=== PATIENT | female | born 1960 | race Two or more races ===

== ENCOUNTER → 2020-04-28 11:42 | Outpatient (BNVA) | payer MEDICAID, SELFPAY | PROVIDERS: PCP Family Medicine; Referring Provider Family Medicine; Visit Provider Internal Medicine Endocrinology, Diabetes & Metabolism | DX: E11.65 Type 2 diabetes mellitus with hyperglycemia (principal); E11.42 Type 2 diabetes mellitus with diabetic polyneuropathy; E11.319 Type 2 diabetes mellitus with unspecified diabetic retinopathy without macular edema; K91.2 Postsurgical malabsorption, not elsewhere classified; E78.5 Hyperlipidemia, unspecified; I10 Essential (primary) hypertension; E03.9 Hypothyroidism, unspecified; Z79.84 Long term (current) use of oral hypoglycemic drugs | CPT/HCPCS: 99214 ==

== ENCOUNTER 2020-05-18 12:32 | Outpatient (REF) | payer MEDICAID, SELFPAY ==
--- NOTE | 2020-05-18 12:35 | MR_ITS ---
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 COMPARISON: Lumbar spine radiograph 09/03/2018. TECHNIQUE: MRI of the lumbar spine was obtained using routine sequences without contrast. FINDINGS: The lumbar vertebral bodies maintain normal heights. There is minimal anterolisthesis of L4 on L5. Edema is seen about the left-sided L4-L5 facets reflecting arthropathy. Edema is seen within the interspinous ligament of L3-L4 which may be on the basis of bursitis. The disc heights appear preserved. The distal spinal cord appears normal. The conus medullaris terminates normally at the T12-L1 level. There is congenital narrowing of the spinal canal related to short pedicles. The imaged portions of the intra-abdominal and intrapelvic contents are within normal limits. The abdominal aorta demonstrates diminutive caliber but the flow void is maintained. SPINAL LEVELS: L1-L2: No posterior disc abnormality or spinal canal stenosis. Moderate facet arthropathy. No neural foraminal stenosis. L2-L3: Disc bulging with ligamentum flavum infolding moderate facet arthropathy. Mild spinal canal stenosis. L3-L4: Disc bulging with ligamentum flavum infolding and mild facet arthropathy. Moderate spinal canal stenosis. Mild bilateral neural foraminal stenosis with bulging disc abutting both exiting L3 nerve roots. L4-L5: Disc bulging, ligamentum flavum infolding, moderate facet arthropathy, and bilateral facet joint effusions. Moderate to severe spinal canal stenosis. Mild right and mild to moderate left neural foraminal stenosis with mild mass effect on the exiting left L4 nerve root. L5-S1: No posterior disc abnormality. Moderate facet arthropathy. No spinal canal or neural foraminal stenosis. MR/MR lumbar spine wo con IMPRESSION: Congenitally narrowed spinal canal with superimposed multifactorial degenerative changes result in moderate to severe spinal canal stenosis at the L4-L5 level and mild mass effect on the exiting left L4 nerve root. At L3-L4 there is mild bilateral neural foraminal stenosis with abutment of both exiting L3 nerve roots.
== END 2020-05-18 12:33 | disposition home or self-care (01) ==
LOC: HO.MRI 12:32
PROVIDERS: PCP Family Medicine; Visit Provider Family Medicine
DX: M21.372 Foot drop, left foot (principal)
CPT/HCPCS: 72148

== ENCOUNTER 2020-05-20 10:55 | Day surgery (SDC) | payer MEDICAID, SELFPAY ==
--- NOTE | 2020-05-20 08:17 | P.CONAN_ITS ---
Documented by User: Princess Graf 05/20/20 08:31 HPI - Anesthesia Eval Consult details Narrative: 59yo F for Colonoscopy Cardiology cleared at low risk after recent negative stress testing [facility] Past Medical History Medical History Asthma Diabetes type 2, uncontrolled Diabetic polyneuropathy associated with type 2 diabetes mellitus Diabetic retinopathy associated with type 2 diabetes mellitus Dyslipidemia Fatty liver disease, nonalcoholic GERD (gastroesophageal reflux disease) History of sleep apnea History of umbilical hernia Hypertension Hypoglycemia after GI (gastrointestinal) surgery Postural hypotension Primary biliary cholangitis Sjogrens syndrome Subclinical hypothyroidism Family History Family History Father [place] (myocardial infarction) Diabetes mellitus Mother Diabetes mellitus CVA (cerebral vascular accident) Maternal Grandmother Stomach cancer Sister Hemorrhagic cerebrovascular accident (CVA) Surgical History Surgical History History of carpal tunnel release History of esophagogastroduodenoscopy (EGD) History of laparoscopic appendectomy History of partial hysterectomy Hx of section Hx of colonoscopy Hx of gastric bypass Hx of tonsillectomy Social History Social History Smoking Status: Never smoker Use of substances other than those prescribed or required for medical reasons: No Advance Directives: No Recently lost weight without trying: No Meds Allergies Allergy/AdvReac Type Severity Reaction Status Date / Time Sulfa (Sulfonamide AdvReac Mild Stomach Verified 05/20/20 11:12 Antibiotics) Upset [SULFA (SULFONAMIDE ANTIBIOTICS)] Latex, Natural Rubber AdvReac Rash Verified 05/20/20 11:13 Morphine Sulfate AdvReac Unknown Abdominal Uncoded 05/20/20 11:12 Pain Home Medications Medication Instructions Recorded Confirmed Type albuterol sulfate 90 mcg/actuation 1 inh INHALATION QID 04/28/20 04/28/20 History aerosol inhaler blood sugar diagnostic #10 ea 04/28/20 04/28/20 History fludrocortisone 0.1 mg tablet 0.05 mg PO DAILY 04/28/20 04/28/20 History gabapentin 300 mg capsule 300 mg PO TID 04/28/20 04/28/20 History lancets 28 gauge #100 ea 04/28/20 04/28/20 History midodrine 2.5 mg tablet 2.5 mg PO BID 04/28/20 04/28/20 History risperidone 1 mg tablet 1 mg PO BEDTIME 04/28/20 04/28/20 History sertraline 100 mg tablet 200 mg PO DAILY tab 04/28/20 04/28/20 History Exam Exam Date and Time: May 20, 2020 0817 Pertinent Lab Results Pertinent Lab Results: Laboratory Tests 03/02/20 04/07/20 10:40 11:10 WBC 4.9 Hgb 10.7 L Hct 34.9 L Plt Count 235 Sodium 143 Potassium 3.9 Chloride 107 BUN 8 L Creatinine 0.77 Narrative Narrative: EKG 03/10/2020: NSR @ 64, ?[facility] Pharm Stress 03/23/20: No EKG evidence of ischemia, Nml myocardial perfusion imaging is normal, LV function is normal at rest and after regadenoson, nml wall motion and thickening, Assessment and Plan Assessment Anesthesia Assessment: Chart Reviewed Documented by User: Sarah Ribeiro 05/20/20 11:41 [facility] Past Medical History Medical History Asthma Diabetes type 2, uncontrolled Diabetic polyneuropathy associated with type 2 diabetes mellitus Diabetic retinopathy associated with type 2 diabetes mellitus Dyslipidemia Fatty liver disease, nonalcoholic GERD (gastroesophageal reflux disease) History of sleep apnea History of umbilical hernia Hypertension Hypoglycemia after GI (gastrointestinal) surgery Postural hypotension Primary biliary cholangitis Sjogrens syndrome Subclinical hypothyroidism Family History Family History Father [place] (myocardial infarction) Diabetes mellitus Mother Diabetes mellitus CVA (cerebral vascular accident) Maternal Grandmother Stomach cancer Sister Hemorrhagic cerebrovascular accident (CVA) Surgical History Surgical History History of carpal tunnel release History of esophagogastroduodenoscopy (EGD) History of laparoscopic appendectomy History of partial hysterectomy Hx of section Hx of colonoscopy Hx of gastric bypass Hx of tonsillectomy Social History Social History Smoking Status: Never smoker Use of substances other than those prescribed or required for medical reasons: No Advance Directives: No Recently lost weight without trying: No Meds Allergies Allergy/AdvReac Type Severity Reaction Status Date / Time Sulfa (Sulfonamide AdvReac Mild Stomach Verified 05/20/20 11:12 Antibiotics) Upset [SULFA (SULFONAMIDE ANTIBIOTICS)] Latex, Natural Rubber AdvReac Rash Verified 05/20/20 11:13 Morphine Sulfate AdvReac Unknown Abdominal Uncoded 05/20/20 11:12 Pain Home Medications Medication Instructions Recorded Confirmed Type albuterol sulfate 90 mcg/actuation 1 inh INHALATION QID 04/28/20 04/28/20 History aerosol inhaler blood sugar diagnostic #10 ea 04/28/20 04/28/20 History fludrocortisone 0.1 mg tablet 0.05 mg PO DAILY 04/28/20 04/28/20 History gabapentin 300 mg capsule 300 mg PO TID 04/28/20 04/28/20 History lancets 28 gauge #100 ea 04/28/20 04/28/20 History midodrine 2.5 mg tablet 2.5 mg PO BID 04/28/20 04/28/20 History risperidone 1 mg tablet 1 mg PO BEDTIME 04/28/20 04/28/20 History sertraline 100 mg tablet 200 mg PO DAILY tab 04/28/20 04/28/20 History Exam Airway Loose/Missing/Broken Teeth: Yes (6-12, 24, 25) Assessment and Plan Assessment Anesthesia Assessment: Anesthesia Plan Discussed and Chart Reviewed Final Anesthetic Review NPO: Yes ASA Class: III Final Preanesthetic Review: No Changes in Pt Med Stat, Meds/Allgs Chart Reviewed, Consent Obtained/Reviewed and Anes Risks/Benef Reviewed Patient Risk: Intermediate Procedure Risk: Low Assessment/Block/Sedation in SS: Assess/Block/Sedation-SS Anesthetic Plan Anesthetic Plan: MAC: Disposition: Standard PACU
[2020-05-20 11:15] VITALS: BP 171/70; PULSE 63; RESP 16; TEMP 36.2; O2SAT 98; BMI 23.6
--- NOTE | 2020-05-20 11:25 | PC.NURSE ---
lungs clear and dim throughout. no s/sx of resp distress.
[2020-05-20] MEDS: Lactated Ringers 1,000 ML 100 ML IVCONT (11:35)
[2020-05-20 11:39] LABS: Glucose, Whole Blood 93 mg/dL (60-115)
--- NOTE | 2020-05-20 12:05 | P.HPSUR_ITS ---
Pre-Procedural Eval Section B Chief Complaint: screening Relevant Family History (Specify if Yes): No Present Medications: see Short Stay Collaborative assessment Medical History: Significant History (PBC, DM, asthma) History of Previous Operations: Relevant previous surgery/procedure and date(s) (gastric bypass) Allergies: Allergies Allergy/AdvReac Type Severity Reaction Status Date / Time Sulfa (Sulfonamide AdvReac Mild Stomach Verified 05/20/20 11:12 Antibiotics) Upset [SULFA (SULFONAMIDE ANTIBIOTICS)] Latex, Natural Rubber AdvReac Rash Verified 05/20/20 11:13 Morphine Sulfate AdvReac Unknown Abdominal Uncoded 05/20/20 11:12 Pain Review of Systems Sugical H&P ROS: Negative: Constitution, Cardiovascular, Respiratory, Neurological, Psychiatric, Hem-Onc, Allergic/Immunologic, Gastrointestinal, Genitourinary, Musculoskeletal, Integumentary, Endocrine and Eyes/Ears/Nose/Th roat Exam Surgical H&P Exam: Normal: HEENT, Normal: Heart, Normal: Lungs, Normal: Extremities, Normal: Abdomen, Normal: Skin and Normal: Neurological Plan Diagnosis/Plan: Unchanged Patient has been examined and remains a candidate for the planned procedure
--- NOTE | 2020-05-20 12:47 | PM.OP ---
Brief Operative Note Date of procedure: 05/20/20 Pre-op diagnosis: colon screen Post-op diagnosis: same Procedure: see op note Surgeon: Luis Lucas MD Anesthesia: MAC Estimated blood loss (mL): 0 Condition: stable Disposition: PACU
--- NOTE | 2020-05-20 12:48 | W.PM.OPN ---
Operative Note Operative Note Narrative: Operative Information Procedure Description: Colonoscopy COLONOSCOPY Instrument: Olympus variable stiffness pediatric scope 190L Colonoscopy Monitoring: Vital signs and clinical assessment, continuous EKG monitoring, Pulse oximetry, Carbon Dioxide monitoring and blood pressure monitoring were done throughout the procedure. Colon withdrawal time was 20 minutes. Procedure: The patient was placed in the left lateral decubitis position and pre-procedure medications were administered. After a digital rectal examination of the ano-rectum, the video colonoscope was inserted into the rectum and advanced through the colon to the cecum/TI. The colonoscope was slowly withdrawn in a retrograde panoramic fashion and the colon mucosa was carefully examined including a retroflexed view of the rectum. Findings and interventions are described below. Procedure Difficulty:easy Findings: Terminal Ileum-normal Cecum: 8-9 mm sessile polyp removed with cold snare Ascending Colon: x 3 sessile polyps measuring 9-10 mm each removed with cold snare Transverse Colon -normal Descending Colon:normal Sigmoid Colon: x 2 sessile polyps 10 mm each removed with cold snare Rectum: Retroflexion with small internal hemorrhoids, grade I Anorectum - normal Colon preparation: [place] Bowel Preparation Scale Right colon; 1 Transverse colon: 2 Left colon; 1 (0 = Unprepared colon segment with mucosa not seen due to solid stool that cannot be cleared. 1 = Portion of mucosa of the colon segment seen, but other areas of the colon segment not well seen due to staining, residual stool and/or opaque liquid. 2 = Minor amount of residual staining, small fragments of stool and/or opaque liquid, but mucosa of colon segment seen well. 3 = Entire mucosa of colon segment seen well with no residual staining, small fragments of stool or opaque liquid) Impression and Post Procedure Diagnosis: polyps internal hemorrhoids Plan: High fiber diet leaflet Avoid straining at stool, epsom salts and sitz bath prn, anusol supps or cream prn Repeat Colonoscopy in 8-12 months due to prep or earlier if clinically indicated Above findings were reviewed with the patient and relevant handouts were provided if indicated.
[2020-05-20 12:50] VITALS: BP 121/61; PULSE 73; RESP 16; TEMP 36.2; O2SAT 98
[2020-05-20 13:05] VITALS: BP 139/74; PULSE 77; RESP 18; TEMP 36.2; O2SAT 99
--- NOTE | 2020-05-20 13:26 | HO.POSTANES ---
Post Anesthesia Evaluation Post Anesthesia Evaluation Vital Signs: Vital Signs Temp Pulse Resp BP Pulse Ox 05/20/20 13:05 97.2 F 77 18 139/74 99 05/20/20 12:50 97.2 F 73 16 121/61 98 05/20/20 11:15 97.2 F 63 16 171/70 H 98 Anesthesia: General (tiva) Mental Status: Awake Pain Control: Satisfactory Nausea/Vomiting: None Hydration: Adequate Anesthesia-Related Issues: No Anes. Related Issues
== END 2020-05-20 13:35 | disposition home or self-care (01) ==
PROVIDERS: PCP Family Medicine; Visit Provider Internal Medicine Gastroenterology
PROC: 0DJD8ZZ Inspection of Lower Intestinal Tract, Via Natural or Artificial Opening Endoscopic (ICD-10-PCS; CPT 45378; principal; 2020-05-20 12:40)
DX: Z12.11 Encounter for screening for malignant neoplasm of colon (principal); D12.2 Benign neoplasm of ascending colon; D12.5 Benign neoplasm of sigmoid colon; K63.5 Polyp of colon; K64.0 First degree hemorrhoids; E11.319 Type 2 diabetes mellitus with unspecified diabetic retinopathy without macular edema; E11.42 Type 2 diabetes mellitus with diabetic polyneuropathy; K74.3 Primary biliary cirrhosis; K76.0 Fatty (change of) liver, not elsewhere classified; K21.9 Gastro-esophageal reflux disease without esophagitis; I10 Essential (primary) hypertension; E78.5 Hyperlipidemia, unspecified; J45.909 Unspecified asthma, uncomplicated; M35.00 Sjogren syndrome, unspecified; Z79.899 Other long term (current) drug therapy; Z98.84 Bariatric surgery status; Z88.2 Allergy status to sulfonamides; Z91.040 Latex allergy status; Z88.8 Allergy status to other drugs, medicaments and biological substances
CPT/HCPCS: 45385; 82947; 88305; J0171

== ENCOUNTER → 2020-06-15 08:37 | Outpatient (BNVA) | payer MEDICAID, SELFPAY | PROVIDERS: PCP Family Medicine; Referring Provider Family Medicine; Visit Provider Internal Medicine Gastroenterology | DX: Z76.89 Persons encountering health services in other specified circumstances (principal) ==

== ENCOUNTER 2020-06-17 11:42 | Outpatient (REF) | payer MEDICAID, SELFPAY ==
[2020-06-17 13:37] LABS: MANUAL DIFF FLAG NO
[2020-06-17 13:54] LABS: Prothrombin Time 12.1 SEC (10.8-13.0)
[2020-06-17 13:58] LABS: Basophils Percent Auto 0.8 % (0-2); Eosinophils Absolute Auto 0.2 X10*3/uL (0.0-0.4); Hematocrit 41.5 % (37-47); Hemoglobin 12.3 g/dl (12.0-16.0); Imm Gran Abs Auto 0.01 X10*3/uL (0.00-0.03); Imm Gran Pct Auto 0.2 % (0.0-0.4); Lymphocytes Absolute Auto 1.8 X10*3/uL (1.2-4.9); Lymphocytes Percent Auto 36.8 % (20-40); Mean Corpuscular HGB Conc 29.6 g/dl (31.0-35.0); Mean Corpuscular Hemoglobin 23.7 pg (27.0-33.0); Mean Corpuscular Volume 79.8 fL (80-98); Monocytes Absolute Auto 0.4 X10*3/uL (0.1-1.2); Monocytes Percent Auto 8.5 % (2-11); Neutrophils Absolute Auto 2.5 X10*3/uL (2.0-8.3); Neutrophils Percent Auto 49.7 % (45-73); Platelet Count 246 X10*3/uL (160-400); Red Cell Distribution Width 16.8 % (11.0-16.0)
[2020-06-17 14:53] LABS: Alanine Aminotransferase 26 U/L (0-31); Albumin Level 3.8 g/dL (3.5-5.0); Alkaline Phosphatase 206 U/L (39-117); Anion Gap 13 (12-20); Aspartate Amino Transferase 25 U/L (5-31); Bilirubin Total < 0.2 mg/dL (0.0-1.0); Blood Urea Nitrogen 14 mg/dL (9-16); Calcium 8.3 mg/dL (8.4-10.2); Carbon Dioxide 30 mmol/L (22-29); Chloride 100 mmol/L (96-108); Estimated Glomerular Filt Rate > 60; Glucose Random 155 mg/dL (60-115); Potassium 3.4 mmol/l (3.3-5.1); Sodium 140 mmol/L (135-145); Total Protein 7.2 g/dL (6.5-8.0)
[2020-06-18 17:57] LABS: Immunoglobulin G 1438 mg/dL (600-1540)
[2020-06-19 08:44] LABS: HBS Num1 0.91 mIU/mL (0-7.99); Hepatitis A Antibody IgM 0.43 Index (0-0.79); ~HepC Num1 0.08 S/CO (0.00-0.79); ~Hepatitis A Antibody IgM Nonreactive (Nonreactive); ~Hepatitis B Surface Antibody NONREACTIVE (Nonreactive); ~Hepatitis C Antibody Nonreactive (Nonreactive)
[2020-06-19 09:28] LABS: HBc Num1 0.09 S/CO (0.00-0.79); HBsAGNum1 0.43 S/CO (0.00-0.99); Hepatitis B Core Antibody Nonreactive (Nonreactive); Hepatitis B Surface Antigen Negative (Negative)
== END 2020-06-17 11:43 | disposition home or self-care (01) ==
LOC: HO.10HDL 11:42
PROVIDERS: Visit Provider Internal Medicine Gastroenterology
DX: D12.6 Benign neoplasm of colon, unspecified (principal); K74.3 Primary biliary cirrhosis; K76.0 Fatty (change of) liver, not elsewhere classified
CPT/HCPCS: 36415; 80053; 82784; 85025; 85610; 86704; 86706; 86709; 86803; 87340

== ENCOUNTER 2020-07-27 09:08 | Outpatient (REF) | payer MEDICAID, SELFPAY ==
--- NOTE | 2020-07-27 09:13 | US_ITS ---
EXAMINATION: US ABDOMEN LIMITED CLINICAL INFORMATION: Benign neoplasm of colon, unspecified. COMPARISON: MRI abdomen without and with contrast dated 11/08/2019. X-ray abdomen dated 10/04/2018. Ultrasound abdomen complete dated 08/28/2018 and 02/15/2018. CT abdomen with intravenous contrast dated 02/22/2016. X-ray abdomen dated 07/25/2007. TECHNIQUE: Real-time imaging of the right upper quadrant abdominal viscera. FINDINGS: PANCREAS: Most of the pancreas is obscured by overlying gas. LIVER: The liver is normal size, contour with diffuse increased echogenicity. There is a hyperechoic lesion in the left lobe anterior segment measuring 1.4 x 0.8 x 0.9 cm, likely hemangioma. This was seen on the previous MRI abdomen and measured 8 mm. No additional lesions seen. There is no intrahepatic biliary duct dilatation seen. GALLBLADDER: Surgically absent. COMMON BILE DUCT: Normal in caliber measuring 0.5 cm in diameter. RIGHT KIDNEY: Normal. No hydronephrosis. No renal calculi or focal parenchymal lesions. The kidney measures 9.8 cm in maximum dimension. FREE FLUID: None. US/US abdomen limited IMPRESSION: Likely small hemangioma left hepatic lobe. This was seen on the previous MRI abdomen. Diffuse hepatic steatosis. Cholecystectomy changes. Right kidney and CBD are unremarkable.
== END 2020-07-27 09:09 | disposition home or self-care (01) ==
LOC: HO.US 09:08
PROVIDERS: Visit Provider Internal Medicine Gastroenterology
DX: D12.6 Benign neoplasm of colon, unspecified (principal); K74.3 Primary biliary cirrhosis; K76.0 Fatty (change of) liver, not elsewhere classified
CPT/HCPCS: 76705

== ENCOUNTER 2020-08-03 12:44 | Emergency (ER) | payer MEDICAID, SELFPAY ==
[2020-08-03 12:53] VITALS: BP 178/79; PULSE 67; RESP 17; TEMP 36.6; O2SAT 98; BMI 22.4
--- NOTE | 2020-08-03 13:55 | XR_ITS ---
EXAMINATION: XR CHEST CLINICAL INFORMATION: Generalized weakness and labile blood pressure COMPARISON: Previous chest x-ray most recent February 2020 TECHNIQUE: 2 views of the chest were obtained. FINDINGS: The cardiac and mediastinal contours are normal. The lungs are clear. There is no pleural effusion or pneumothorax. There are mild degenerative changes of the spine. XR/XR chest 2V IMPRESSION: No evidence for acute disease in the chest.
--- NOTE | 2020-08-03 14:28 | ED.GENADULT ---
HPI - General Adult General Chief complaint: General Medical Stated complaint: high blood pressure Time Seen by Provider: 08/03/20 13:52 Source: patient Mode of arrival: ambulatory Limitations: language barrier History of Present Illness HPI narrative: Patient history of orthostatic hypotension on fludrocortisone and midodrine noticed her blood pressure systolic in 200 range for last 1 week patient feel weak slightly. On arrival patient's blood pressure was 200/95 for lying down and on standing dropped to 141/68 patient complaining of mild dizziness on standing slight headache patient denies any chest pain no shortness of breath patient also been vomiting after she eats something for last couple of weeks had a gastric bypass surgery last year denies any abdominal pain no diarrhea Onset (ago): week(s) (1) Related Data Home Medications Medication Instructions Recorded Confirmed albuterol sulfate 90 mcg/actuation 1 inh INHALATION QID 04/28/20 04/28/20 aerosol inhaler blood sugar diagnostic #10 ea 04/28/20 04/28/20 fludrocortisone 0.1 mg tablet 0.05 mg PO DAILY 04/28/20 04/28/20 gabapentin 300 mg capsule 300 mg PO TID 04/28/20 04/28/20 lancets 28 gauge #100 ea 04/28/20 04/28/20 midodrine 2.5 mg tablet 2.5 mg PO BID 04/28/20 04/28/20 risperidone 1 mg tablet 1 mg PO BEDTIME 04/28/20 04/28/20 sertraline 100 mg tablet 200 mg PO DAILY tab 04/28/20 04/28/20 Previous Rx's Medication Instructions Recorded acarbose 100 mg tablet 100 mg PO TID 30 Days #90 tab 04/28/20 cholecalciferol (vitamin D3) 50 50 mcg PO DAILY 30 Days #30 cap 04/28/20 mcg (2,000 unit) capsule metformin 500 mg tablet 500 mg PO DAILY 30 Days #30 tab 04/28/20 ursodiol 250 mg tablet 250 mg PO TID #90 tab 04/29/20 Allergies Allergy/AdvReac Type Severity Reaction Status Date / Time Sulfa (Sulfonamide AdvReac Mild Stomach Verified 05/20/20 11:12 Antibiotics) Upset [SULFA (SULFONAMIDE ANTIBIOTICS)] Latex, Natural Rubber AdvReac Rash Verified 05/20/20 11:13 Morphine Sulfate AdvReac Unknown Abdominal Uncoded 05/20/20 11:12 Pain Review of Systems Review of Systems: Constitutional : No Weight loss, No Fever, No Chills ENT/Mouth : No sore throat, No Rhinorrhea Eyes: No Eye Pain, No Swelling Cardiovascular : No Chest Pain, no palpitations Respiratory : No Cough, No Sputum, no shortness of breath Gastrointestinal : + Nausea, ++ Vomiting, No Diarrhea, No abdominal Pain, no black stools Genitourinary : No Dysuria, No Urinary Frequency Musculoskeletal : No joint pain, No Myalgias, No Joint Swelling Skin : No Skin Lesions, No rash Neuro : No Weakness, No Numbness, No Dizziness, No Headache Psych : No Anxiety/Panic, No Depression Heme/Lymph: No Bruising, No Lymphadenopathy Endocrine : No Polyuria, No Polydipsia All other systems reviewed and are negative [facility] Past Medical History Medical History (Updated 08/03/20 @ 12:57 by Pradip Tracey) Asthma Diabetes 1.5, managed as type 2 Diabetes type 2, uncontrolled Diabetic polyneuropathy associated with type 2 diabetes mellitus Diabetic retinopathy associated with type 2 diabetes mellitus Dyslipidemia Fatty liver disease, nonalcoholic GERD (gastroesophageal reflux disease) History of sleep apnea History of umbilical hernia HTN (hypertension) Hypertension Hypoglycemia after GI (gastrointestinal) surgery Postural hypotension Primary biliary cholangitis Sjogrens syndrome Subclinical hypothyroidism Surgical History History of carpal tunnel release History of esophagogastroduodenoscopy (EGD) History of laparoscopic appendectomy History of partial hysterectomy Hx of section Hx of colonoscopy Hx of gastric bypass Hx of tonsillectomy Family History Family History Father [place] (myocardial infarction) Diabetes mellitus Mother Diabetes mellitus CVA (cerebral vascular accident) Maternal Grandmother Stomach cancer Sister Hemorrhagic cerebrovascular accident (CVA) Social History Social History (Updated 06/15/20 @ 08:39 by Becka Arcos [employer]) Alcohol intake: never Smoking Status: Never smoker Use of substances other than those prescribed or required for medical reasons: No Advance Directives: No Advance Directives Information Provided: Yes Physical Exam Vital Signs: Vital Signs: Last Vital Signs Temp 98 F 08/03/20 12:53 Pulse 65 08/03/20 15:20 Resp 16 08/03/20 15:20 BP 141/68 H 08/03/20 15:20 Pulse Ox 98 08/03/20 12:53 Body Mass Index 22.4 Appearance: Alert. Oriented X3. No acute distress. Eyes: Pupils equal, round and reactive to light. ENT: Pharynx normal. Neck: Normal inspection. Neck supple. CVS: Normal heart rate and rhythm. Pulses normal. Respiratory: No respiratory distress. Breath sounds normal. Abdomen: Soft and nontender. Bowel sounds are present, no mass palpable, no CVA tenderness Skin: Skin warm and dry. Normal skin color. Normal skin turgor. Extremities: No lower extremity edema. Neuro: Oriented X 3. No motor deficit. No sensory deficit. Course Course Course Narrative: Patient with orthostatic hypertension on my drain with elevated blood pressure in supine position. Awaiting further chemistry plan to discharge patient home hold on midostaurin for now. Patient signed out to Dr. Majano for disposition Medical Decision Making MDM Narrative Medical decision making narrative: Patient with orthostatic hypertension on midodrin complaining of high blood pressure in the range of 200 systolic will advised patient to hold midodrin at this time drink plenty of fluids and follow-up with PCP awaiting for the labs Lab Data Result diagrams: 08/03/20 15:18 08/03/20 15:18 Labs: Lab Results 08/03/20 08/03/20 Range/Units 15:18 15:18 WBC 5.4 (4.8-10.8) X10*3/uL RBC 5.34 (4.20-5.50) X10*6/uL Hgb 13.1 (12.0-16.0) g/dl Hct 42.4 (37-47) % MCV 79.4 L (80-98) fL MCH 24.5 L (27.0-33.0) pg MCHC 30.9 L (31.0-35.0) g/dl RDW 17.1 H (11.0-16.0) % Plt Count 229 (160-400) X10*3/uL MPV Not Reportable Immature Gran % (Auto) 0.2 (0.0-0.4) % Neut % (Auto) 43.2 L (45-73) % Lymph % (Auto) 40.2 H (20-40) % Lipscomb % (Auto) 8.9 (2-11) % Eos % (Auto) 6.8 H (0-4) % Baso % (Auto) 0.7 (0-2) % Lymph # (Auto) 2.2 (1.2-4.9) X10*3/uL Lipscomb # (Auto) 0.5 (0.1-1.2) X10*3/uL Eos # (Auto) 0.4 (0.0-0.4) X10*3/uL Baso # (Auto) 0.0 (0.0-0.2) X10*3/uL Abs Immat Gran (auto) 0.01 (0.00-0.03) X10*3/uL Absolute Neuts (auto) 2.3 (2.0-8.3) X10*3/uL Absolute Nucleated RBC 0.000 (0.0-0.012) X10*3/uL Nucleated RBC % (auto) 0.0 (0.0-0.2) /100WBC Sodium Cancelled Potassium Cancelled Chloride Cancelled Carbon Dioxide Cancelled Anion Gap Cancelled BUN Cancelled Creatinine Cancelled Estim Creat Clear Calc Cancelled Estimated GFR Cancelled Random Glucose Cancelled Calcium Cancelled Discharge Plan Discharge Prescriptions: No Action ursodiol 250 mg tablet 250 mg PO TID Qty: 90 RF: 3 gabapentin 300 mg capsule 300 mg PO TID RF: 0 fludrocortisone 0.1 mg tablet 0.05 mg PO DAILY RF: 0 midodrine 2.5 mg tablet 2.5 mg PO BID RF: 0 sertraline 100 mg tablet 200 mg PO DAILY RF: 0 albuterol sulfate 90 mcg/actuation HFA aerosol inhaler 1 inh inhalation QID RF: 0 risperidone 1 mg tablet 1 mg PO BEDTIME RF: 0 (DME) FreeStyle Lite Strips Strip See Rx Instructions .ROUTE .MEDSUPPLY Qty: 10 RF: 0 (DME) lancets [FreeStyle Lancets] 28 gauge misc See Rx Instructions .ROUTE .MEDSUPPLY Qty: 100 RF: 0 acarbose 100 mg tablet 100 mg PO TID 30 Days Qty: 90 RF: 6 metformin 500 mg tablet 500 mg PO DAILY 30 Days Qty: 30 RF: 6 cholecalciferol (vitamin D3) 50 mcg (2,000 unit) capsule 50 mcg PO DAILY 30 Days Qty: 30 RF: 5
[2020-08-03 15:20] VITALS: BP 141/68; PULSE 65; RESP 16
[2020-08-03 15:21] LABS: MANUAL DIFF FLAG NO
[2020-08-03 15:25] LABS: Basophils Percent Auto 0.7 % (0-2); Eosinophils Absolute Auto 0.4 X10*3/uL (0.0-0.4); Eosinophils Percent Auto 6.8 % (0-4); Hematocrit 42.4 % (37-47); Hemoglobin 13.1 g/dl (12.0-16.0); Imm Gran Abs Auto 0.01 X10*3/uL (0.00-0.03); Imm Gran Pct Auto 0.2 % (0.0-0.4); Lymphocytes Absolute Auto 2.2 X10*3/uL (1.2-4.9); Lymphocytes Percent Auto 40.2 % (20-40); Mean Corpuscular HGB Conc 30.9 g/dl (31.0-35.0); Mean Corpuscular Hemoglobin 24.5 pg (27.0-33.0); Mean Corpuscular Volume 79.4 fL (80-98); Monocytes Absolute Auto 0.5 X10*3/uL (0.1-1.2); Monocytes Percent Auto 8.9 % (2-11); Neutrophils Absolute Auto 2.3 X10*3/uL (2.0-8.3); Neutrophils Percent Auto 43.2 % (45-73); Platelet Count 229 X10*3/uL (160-400); Red Blood Count 5.34 X10*6/uL (4.20-5.50); Red Cell Distribution Width 17.1 % (11.0-16.0); White Blood Count 5.4 X10*3/uL (4.8-10.8)
[2020-08-03 16:00] VITALS: BP 195/88; PULSE 64; RESP 17; TEMP 36.5; O2SAT 96
[2020-08-03 17:19] LABS: Alanine Aminotransferase 22 U/L (0-31); Alkaline Phosphatase 242 U/L (39-117); Anion Gap 12 (12-20); Aspartate Amino Transferase 26 U/L (5-31); Bilirubin Direct < 0.2 mg/dL (0.0-0.5); Bilirubin Total 0.3 mg/dL (0.0-1.0); Blood Urea Nitrogen 13 mg/dL (9-16); Calcium 9.1 mg/dL (8.4-10.2); Carbon Dioxide 36 mmol/L (22-29); Chloride 100 mmol/L (96-108); Creatinine Clr Calc Pharmacy 51.6; Estimated Glomerular Filt Rate > 60; Glucose Random 116 mg/dL (60-115); Magnesium 1.7 mg/dL (1.6-2.6); Potassium 4.1 mmol/l (3.3-5.1); Sodium 144 mmol/L (135-145); Total Protein 7.7 g/dL (6.5-8.0)
== END 2020-08-03 17:34 | disposition home or self-care (01) ==
PROVIDERS: Emergency Provider Internal Medicine; PCP Family Medicine
DX: I95.1 Orthostatic hypotension (principal); I10 Essential (primary) hypertension; E11.9 Type 2 diabetes mellitus without complications; K76.0 Fatty (change of) liver, not elsewhere classified
CPT/HCPCS: 36415; 71046; 80048; 80076; 83735; 85025; 99283; 99284

== ENCOUNTER → 2020-08-31 11:10 | Outpatient (BNVA) | payer MEDICAID, SELFPAY | PROVIDERS: PCP Family Medicine; Visit Provider Internal Medicine Endocrinology, Diabetes & Metabolism ==

== ENCOUNTER 2020-09-08 09:24 | Outpatient (REF) | payer MEDICAID, SELFPAY ==
[2020-09-08 10:31] LABS: Creatinine Urine 143.13 mg/dL; Microalbum/Creatinine Ratio Ur 20.9 ug/mg cr
[2020-09-08 10:35] LABS: Alanine Aminotransferase 20 U/L (0-31); Albumin Level 3.8 g/dL (3.5-5.0); Alkaline Phosphatase 207 U/L (39-117); Anion Gap 13 (12-20); Aspartate Amino Transferase 25 U/L (5-31); Bilirubin Total 0.3 mg/dL (0.0-1.0); Blood Urea Nitrogen 13 mg/dL (9-16); Calcium 8.7 mg/dL (8.4-10.2); Carbon Dioxide 29 mmol/L (22-29); Chloride 107 mmol/L (96-108); Cholesterol 188 mg/dL; Estimated Glomerular Filt Rate > 60; Glucose Fasting 102 mg/dL (60-99); HDL Cholesterol 57 mg/dL; LDL Cholesterol Calculated 111 mg/dl; Potassium 4.4 mmol/L (3.3-5.1); Sodium 145 mmol/L (135-145); Total Protein 7.1 g/dL (6.5-8.0); Triglycerides 103 mg/dL
[2020-09-08 10:36] LABS: Estimated Average Glucose 177 mg/dL; Hemoglobin A1c % 7.8 %
[2020-09-08 10:58] LABS: Free T4 (Free Thyroxine) 1.03 ng/dL (0.71-1.85)
[2020-09-08 12:18] LABS: Vitamin B12 755 pg/mL (200-900)
[2020-09-09 02:16] LABS: LDL Cholesterol Direct 114 mg/dL (<100)
[2020-09-17 02:07] LABS: Fructosamine 276 umol/L (205-285)
== END 2020-09-08 09:25 | disposition home or self-care (01) ==
LOC: HO.LAB 09:24
PROVIDERS: Absent Provider Internal Medicine Medical Oncology; PCP Family Medicine; Visit Provider Internal Medicine Endocrinology, Diabetes & Metabolism
DX: E11.65 Type 2 diabetes mellitus with hyperglycemia (principal)
CPT/HCPCS: 36415; 80053; 80061; 82043; 82607; 82985; 83036; 83721; 84439; 84443

== ENCOUNTER → 2020-10-09 10:08 | Outpatient (BNVA) | payer OTHER, SELFPAY | PROVIDERS: PCP Internal Medicine; Visit Provider Internal Medicine Gastroenterology ==

== ENCOUNTER 2020-11-02 14:53 | Outpatient (REF) | payer OTHER, SELFPAY ==
[2020-11-02 15:47] LABS: MANUAL DIFF FLAG NO
[2020-11-02 15:56] LABS: Basophils Absolute Auto 0.1 X10*3/uL (0.0-0.2); Basophils Percent Auto 1.3 % (0-2); Eosinophils Absolute Auto 0.5 X10*3/uL (0.0-0.4); Eosinophils Percent Auto 9.1 % (0-4); Hematocrit 36.6 % (37-47); Hemoglobin 11.1 g/dl (12.0-16.0); Imm Gran Abs Auto 0.02 X10*3/uL (0.00-0.03); Imm Gran Pct Auto 0.4 % (0.0-0.4); Lymphocytes Absolute Auto 1.7 X10*3/uL (1.2-4.9); Lymphocytes Percent Auto 31.3 % (20-40); Mean Corpuscular HGB Conc 30.3 g/dl (31.0-35.0); Mean Corpuscular Hemoglobin 24.5 pg (27.0-33.0); Mean Corpuscular Volume 80.8 fL (80-98); Mean Platelet Volume 12.5 fL (9.4-12.3); Monocytes Absolute Auto 0.6 X10*3/uL (0.1-1.2); Monocytes Percent Auto 11.1 % (2-11); Neutrophils Absolute Auto 2.6 X10*3/uL (2.0-8.3); Neutrophils Percent Auto 46.8 % (45-73); Platelet Count 298 X10*3/uL (160-400); Red Blood Count 4.53 X10*6/uL (4.20-5.50); Red Cell Distribution Width 17.5 % (11.0-16.0); White Blood Count 5.5 X10*3/uL (4.8-10.8)
[2020-11-02 16:04] LABS: INTERNATIONAL NORM RATIO 1.1 (0.9-1.1); Prothrombin Time 12.5 SEC (10.8-13.0)
[2020-11-02 16:18] LABS: Alanine Aminotransferase 30 U/L (0-31); Albumin Level 3.8 g/dL (3.5-5.0); Alkaline Phosphatase 315 U/L (39-117); Anion Gap 12 (12-20); Aspartate Amino Transferase 39 U/L (5-31); Bilirubin Total 0.2 mg/dL (0.0-1.0); Blood Urea Nitrogen 14 mg/dL (9-16); Calcium 9.3 mg/dL (8.4-10.2); Carbon Dioxide 30 mmol/L (22-29); Chloride 105 mmol/L (96-108); Cholesterol 209 mg/dL; Estimated Glomerular Filt Rate > 60; Glucose Fasting 111 mg/dL (60-99); HDL Cholesterol 60 mg/dL; LDL Cholesterol Calculated 111 mg/dl; Potassium 4.3 mmol/L (3.3-5.1); Sodium 143 mmol/L (135-145); Total Protein 7.4 g/dL (6.5-8.0); Triglycerides 194 mg/dL
[2020-11-02 16:40] LABS: Free T4 (Free Thyroxine) 1.02 ng/dL (0.71-1.85); Thyroid Stimulating Hormone 2.77 uIU/mL (0.32-4.0)
[2020-11-03 06:51] LABS: LDL Cholesterol Direct 119 mg/dL (<100)
== END 2020-11-02 14:54 | disposition home or self-care (01) ==
LOC: HO.LAB 14:53
PROVIDERS: Internal Medicine Endocrinology, Diabetes & Metabolism; Internal Medicine Gastroenterology; PCP Internal Medicine; Visit Provider Internal Medicine
DX: E11.65 Type 2 diabetes mellitus with hyperglycemia (principal); K74.3 Primary biliary cirrhosis; K76.0 Fatty (change of) liver, not elsewhere classified; R10.11 Right upper quadrant pain
CPT/HCPCS: 36415; 80053; 80061; 83721; 84439; 84443; 85025; 85610

== ENCOUNTER 2020-11-03 14:11 | Outpatient (REF) | payer OTHER, SELFPAY ==
[2020-11-03 14:33] LABS: Glucose Urine UA NEG (NEG); Leukocyte Esterase Urine NEG (NEG); Nitrite Urine NEG (NEG); Urine Blood NEG (NEG); Urine Ketones NEG (NEG); Urine Protein NEG (NEG-TRACE)
[2020-11-03 14:39] LABS: Appearance Urine CLEAR; Color Urine YELLOW
[2020-11-03 15:14] LABS: Creatinine Urine 30.23 mg/dL; Microalbum/Creatinine Ratio Ur 39.6 ug/mg cr
== END 2020-11-03 14:12 | disposition home or self-care (01) ==
LOC: HO.LNP 14:11
PROVIDERS: Referring Provider Internal Medicine Endocrinology, Diabetes & Metabolism; Visit Provider Internal Medicine
DX: R30.0 Dysuria (principal); E11.9 Type 2 diabetes mellitus without complications
CPT/HCPCS: 81003; 82043

== ENCOUNTER 2020-11-10 08:22 | Outpatient (REF) | payer OTHER, SELFPAY ==
--- NOTE | ~2020-11-10 | US_ITS ---
EXAMINATION: US ABDOMEN COMPLETE CLINICAL INFORMATION: Primary biliary cirrhosis. COMPARISON: Ultrasound abdomen limited dated 07/27/2020. MRI abdomen without and with contrast dated 11/08/2019 and 06/21/2019. X-ray abdomen dated 10/04/2018. Ultrasound abdomen complete dated 08/28/2018. CT abdomen with intravenous contrast dated 02/22/2016. X-ray abdomen dated 07/25/2007. TECHNIQUE: Real-time imaging of the abdominal viscera. FINDINGS: PANCREAS: The pancreas is obscured by overlying gas. ABDOMINAL AORTA: The mid and distal segments are normal in caliber. The proximal segment is not visualized. INFERIOR VENA CAVA: Visualized portions are normal. LIVER: The liver is small and heterogeneous. The liver contour is normal. There is a hypoechoic lesion in the left lobe measuring 0.9 x 1.0 x 0.9 cm. Previously it measured 1.4 x 0.8 x 0.9 cm. On previous MRI 06/21/2019 it was reported as a hemangioma. There is no intrahepatic biliary duct dilatation seen. GALLBLADDER: Surgically absent. COMMON BILE DUCT: Normal in caliber measuring 0.3 cm in diameter. RIGHT KIDNEY: Normal. No hydronephrosis. No renal calculi or focal parenchymal lesions. The kidney measures 9.5 cm in maximum dimension. LEFT KIDNEY: There is an echogenic foci in the midpole cortex left kidney question small hemangioma versus microcalcification. No hydronephrosis. No renal calculi or focal parenchymal lesions. The kidney measures 9.3 cm in maximum dimension. SPLEEN: Normal. The spleen measures 7.6 cm in maximum dimension. FREE FLUID: None. US/US abdomen complete IMPRESSION: Heterogeneous small liver with likely left hepatic lobe 1 cm hemangioma. 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 The gallbladder has been surgically removed.
== END 2020-11-10 08:23 | disposition home or self-care (01) ==
LOC: HO.US 08:22
PROVIDERS: PCP Internal Medicine; Visit Provider Internal Medicine Gastroenterology
DX: K74.3 Primary biliary cirrhosis (principal); K76.0 Fatty (change of) liver, not elsewhere classified; R10.11 Right upper quadrant pain
CPT/HCPCS: 76700

== ENCOUNTER 2020-11-27 10:58 | Outpatient (REF) | payer OTHER, SELFPAY ==
[2020-11-27 13:09] LABS: MANUAL DIFF FLAG NO
[2020-11-27 13:16] LABS: Basophils Absolute Auto 0.1 X10*3/uL (0.0-0.2); Eosinophils Absolute Auto 0.4 X10*3/uL (0.0-0.4); Eosinophils Percent Auto 6.9 % (0-4); Hematocrit 37.1 % (37-47); Hemoglobin 11.2 g/dl (12.0-16.0); Imm Gran Abs Auto 0.02 X10*3/uL (0.00-0.03); Imm Gran Pct Auto 0.3 % (0.0-0.4); Immature Retic Fraction 12.1 % (3.0-15.9); Lymphocytes Absolute Auto 1.3 X10*3/uL (1.2-4.9); Mean Corpuscular HGB Conc 30.2 g/dl (31.0-35.0); Mean Corpuscular Hemoglobin 24.9 pg (27.0-33.0); Mean Corpuscular Volume 82.4 fL (80-98); Mean Platelet Volume 13.3 fL (9.4-12.3); Monocytes Absolute Auto 0.4 X10*3/uL (0.1-1.2); Monocytes Percent Auto 6.6 % (2-11); Neutrophils Absolute Auto 3.6 X10*3/uL (2.0-8.3); Neutrophils Percent Auto 62.2 % (45-73); Platelet Count 297 X10*3/uL (160-400); Red Cell Distribution Width 16.5 % (11.0-16.0); Retic HGB Equivalent 27.1 pg (30.0-35.0); Reticulocyte Percent 1.6 % (0.5-1.8); Reticulocytes Absolute 0.073 X10*6/uL (0.026-0.095); White Blood Count 5.8 X10*3/uL (4.8-10.8)
[2020-11-27 13:59] LABS: Erythrocyte Sedimentation Rate 64 MM/HR (0-20)
[2020-11-27 14:00] LABS: Alanine Aminotransferase 30 U/L (0-31); Albumin Level 3.9 g/dL (3.5-5.0); Alkaline Phosphatase 336 U/L (39-117); Anion Gap 12 (12-20); Aspartate Amino Transferase 33 U/L (5-31); Bilirubin Total 0.4 mg/dL (0.0-1.0); Blood Urea Nitrogen 10 mg/dL (9-16); Calcium 9.3 mg/dL (8.4-10.2); Carbon Dioxide 30 mmol/L (22-29); Chloride 104 mmol/L (96-108); Cholesterol 125 mg/dL; Estimated Glomerular Filt Rate > 60; Glucose Random 157 mg/dL (60-115); HDL Cholesterol 54 mg/dL; Iron 34 mcg/dL (30-160); LDL Cholesterol Calculated 54 mg/dl; Percent Iron Saturation 9 % (15-50); Potassium 4.3 mmol/L (3.3-5.1); Sodium 142 mmol/L (135-145); Total Iron Binding Capacity 394 mcg/dL (228-428); Total Protein 7.7 g/dL (6.5-8.0); Triglycerides 89 mg/dL; Unsaturated Iron Binding 360 ug/dL
[2020-11-27 14:01] LABS: Microalbum/Creatinine Ratio Ur 33.3 ug/mg cr
[2020-11-27 14:23] LABS: Ferritin 26 ng/mL (10-250); Free T4 (Free Thyroxine) 0.96 ng/dL (0.71-1.85); Thyroid Stimulating Hormone 2.45 uIU/mL (0.32-4.0); Vitamin D 25-OH Total 42.2 ng/mL (>30)
[2020-11-27 14:31] LABS: Folate 12.6 ng/mL (> or = 4.0); Vitamin B12 943 pg/mL (200-900)
[2020-11-28 07:22] LABS: Estimated Average Glucose 163 mg/dL; Hemoglobin A1c % 7.3 %
[2020-11-30 15:37] LABS: Zinc 54 mcg/dL (60-130)
[2020-12-01 16:11] LABS: Nicotinamide 35 ng/mL; Vit B3 - Nicotinic Acid <20 ng/mL
[2020-12-02 00:36] LABS: Alpha-Tocopherol 9.3 mg/L (5.7-19.9); Beta-Gamma Tocopherol <1.0 mg/L (<=4.3); Vitamin A 34 mcg/dL (38-98)
[2020-12-02 08:17] LABS: Vitamin B6 3.8 ng/mL (2.1-21.7)
[2020-12-02 12:23] LABS: Vitamin C 0.8 mg/dL (0.3-2.7)
[2020-12-02 17:12] LABS: Vitamin B5 (Pantothenic Acid) <40 ng/mL (<275)
[2020-12-03 21:51] LABS: Vitamin K1 84 pg/mL (130-1500)
== END 2020-11-27 10:59 | disposition home or self-care (01) ==
LOC: HO.LAB 10:58
PROVIDERS: Absent Provider Internal Medicine; PCP Internal Medicine; Referring Provider Internal Medicine; Visit Provider Internal Medicine Gastroenterology
DX: K74.3 Primary biliary cirrhosis (principal); D64.9 Anemia, unspecified; K76.0 Fatty (change of) liver, not elsewhere classified; I10 Essential (primary) hypertension; E11.65 Type 2 diabetes mellitus with hyperglycemia; E78.5 Hyperlipidemia, unspecified; E03.9 Hypothyroidism, unspecified; E78.00 Pure hypercholesterolemia, unspecified; D12.6 Benign neoplasm of colon, unspecified
CPT/HCPCS: 36415; 80053; 80061; 82043; 82180; 82306; 82607; 82728; 82746; 83036; 83540; 84207; 84439; 84443; 84446; 84590; 84591; 84597; 84630; 85025; 85045; 85652; 90471; 99212

== ENCOUNTER 2020-12-24 09:33 | Outpatient (REF) | payer OTHER, SELFPAY ==
--- NOTE | ~2020-12-24 | US_ITS ---
EXAMINATION: US ABDOMEN LIMITED WITH LIVER ELASTOGRAPHY CLINICAL INFORMATION: Anemia. Cirrhosis. COMPARISON: None. TECHNIQUE: Real-time imaging of the abdominal viscera. Noninvasive ultrasound liver fibrosis assessment is performed using Eldon ElastPQ point quantification shear wave elastography (pSWE) with a C5-2 MHz transducer. Multiple elastography samples are obtained. FINDINGS: PANCREAS: Not visualized due to bowel gas. LIVER: Liver echotexture is slightly heterogeneous. The previously identified focal hypoechoic lesion in the left lobe of the liver is not well visualized. The liver is normal in size and contour. There is no biliary duct dilatation. The right lobe measures 15 cm in length. The left lobe measures 8 cm in length. Portal flow is normal. Hepatopedal. Shear wave liver elastography median stiffness is 1.4 m/s (reference: normal median stiffness is 1.3 m/s or less). IQR/median stiffness to assess sampling precision is 0.13 (reference: good quality data set is IQR/median stiffness of 0.15 or less). GALLBLADDER: Surgically removed COMMON BILE DUCT: Normal in caliber measuring 0.3 cm in diameter. RIGHT KIDNEY: Normal. No hydronephrosis. No renal calculi or focal parenchymal lesions. The kidney measures 10 cm in maximum dimension. FREE FLUID: None. US/US abdomen castillo w elastography IMPRESSION: 1. Impression: Slightly heterogeneous liver. Previously identified liver lesion seen by MRI is not appreciated by ultrasound. Post cholecystectomy. Nonvisualization of the pancreas. 2. Liver elastography: Adequate liver sampling. In the absence of other known clinical signs, rule out compensated advanced chronic liver disease. REFERENCE: Society of Radiologists in Ultrasound Liver Stiffness Thresholds (2020): LIVER STIFFNESS THRESHOLDS: *Liver Stiffness equal or less than 1.3 m/s: High probability of being normal. *Liver Stiffness less than 1.7 m/s: In the absence of other known clinical signs, rules out compensated advanced chronic liver disease. *Liver Stiffness 1.7-2.1 m/s: Suggestive of compensated advanced chronic liver disease but need further test for confirmation. *Liver Stiffness over 2.1 m/s: Rules in compensated advanced chronic liver disease. *Liver Stiffness over 2.4 m/s: Suggestive of clinically significant portal hypertension. QUALITY OF DATA SET: *IQR/Median value equal or less than 0.15 implies a quality data set. *IQR/Median value over 0.15 implies a poor quality data set. SIGNIFICANT CHANGE FROM PRIOR EXAM: Significant change if liver stiffness measurement is 10% or greater from prior exam. OTHER CONSIDERATIONS: The stage of liver fibrosis may be overestimated in the setting of acute hepatitis, liver inflammation, elevated liver function tests, hepatic vascular congestion, obstructive cholestasis, non-fasting state, and infiltrative diseases such as amyloidosis and lymphoma. In some patients with NAFLD, the liver stiffness thresholds for compensated advanced chronic liver disease may be lower. In causes other than viral hepatitis and NAFLD, liver stiffness thresholds are not well established.
== END 2020-12-24 09:34 | disposition home or self-care (01) ==
LOC: HO.US 09:33
PROVIDERS: PCP Internal Medicine; Visit Provider Internal Medicine Gastroenterology
DX: D64.9 Anemia, unspecified (principal); K74.3 Primary biliary cirrhosis
CPT/HCPCS: 76705; 76981

== ENCOUNTER 2020-12-31 09:46 | Day surgery (SDC) | payer OTHER, SELFPAY ==
[2020-12-23 20:28] VITALS: BMI 22.2
--- NOTE | 2020-12-30 08:59 | P.CONAN_ITS ---
Documented by User: Princess Graf 12/30/20 11:35 HPI - Anesthesia Eval Consult details Narrative: 60yo F for Upper Endoscopy and Colonoscopy s/p colonoscooy with TIVA 05/2020. Cleared by cardiology with negative stress test - last seen at routine cardiac visit 10/2020 - all stable except dizziness r/t known hx of vertigo PMFSH Active Problems Active Problems: All Active Problems (Updated 11/12/20 @ 14:44 by Ludy Alonso MD) Hx of gastric bypass (Acute) Obstructive sleep apnea (Acute) CVA (cerebral vascular accident) (Acute) Lumbar spinal stenosis (Acute) Type 2 diabetes mellitus with hyperglycemia (Acute) Coronary artery disease (Acute) Tubular adenoma of colon (Acute) Anemia (Acute) Primary biliary cholangitis (Acute) Fatty liver disease, nonalcoholic (Acute) Postural hypotension (Acute) Sjogrens syndrome (Acute) GERD (gastroesophageal reflux disease) (Acute) Asthma (Acute) Subclinical hypothyroidism (Acute) Hypertension (Acute) Dyslipidemia (Acute) Diabetic retinopathy associated with type 2 diabetes mellitus (Acute) Diabetic polyneuropathy associated with type 2 diabetes mellitus (Acute) Hypoglycemia after GI (gastrointestinal) surgery (Acute) Diabetes type 2, uncontrolled (Acute) Past Medical History Medical History (Updated 12/31/20 @ 11:41 by Yessy Wood) Asthma CVA (cerebral vascular accident) Diabetes type 2, uncontrolled Diabetic polyneuropathy associated with type 2 diabetes mellitus Diabetic retinopathy associated with type 2 diabetes mellitus Dyslipidemia Fatty liver disease, nonalcoholic GERD (gastroesophageal reflux disease) History of sleep apnea History of umbilical hernia HTN (hypertension) Hypertension Hypoglycemia after GI (gastrointestinal) surgery Postural hypotension Primary biliary cholangitis Sjogrens syndrome Subclinical hypothyroidism Family History Family History Father [place] (myocardial infarction) Diabetes mellitus Mother Diabetes mellitus CVA (cerebral vascular accident) Maternal Grandmother Stomach cancer Sister Hemorrhagic cerebrovascular accident (CVA) Surgical History Surgical History History of carpal tunnel release History of esophagogastroduodenoscopy (EGD) History of laparoscopic appendectomy History of partial hysterectomy Hx of section Hx of colonoscopy Hx of gastric bypass Hx of tonsillectomy Social History Social History Household Members: Spouse Alcohol intake: never Patient Tobacco Use Status: Never used Tobacco Use of substances other than those prescribed or required for medical reasons: No Are you DNR?: No Advance Directives: Yes Advance Directives Information Provided: Yes Advance Directives on File: Yes Advance Directives Date on File: 08/11/18 Recently lost weight without trying: No Meds Allergies Allergy/AdvReac Type Severity Reaction Status Date / Time Sulfa (Sulfonamide AdvReac Mild Stomach Verified 11/27/20 11:13 Antibiotics) Upset [SULFA (SULFONAMIDE ANTIBIOTICS)] Latex, Natural Rubber AdvReac Rash Verified 11/27/20 11:13 Morphine Sulfate AdvReac Unknown Abdominal Uncoded 05/20/20 11:12 Pain Home Medications Medication Instructions Recorded Confirmed Last Taken Type albuterol sulfate 90 mcg/actuation 1 inh INHALATION QID 04/28/20 12/23/20 Unknown History aerosol inhaler blood sugar diagnostic #10 ea 04/28/20 12/23/20 Unknown History fludrocortisone 0.1 mg tablet 0.05 mg PO DAILY 04/28/20 12/23/20 Unknown History gabapentin 300 mg capsule 300 mg PO TID 04/28/20 12/23/20 12/31/20 08:00 History lancets 28 gauge #100 ea 04/28/20 12/23/20 Unknown History midodrine 2.5 mg tablet 2.5 mg PO BID 04/28/20 12/23/20 12/31/20 08:00 History risperidone 1 mg tablet 1 mg PO BEDTIME 04/28/20 12/23/20 Unknown History sertraline 100 mg tablet 200 mg PO DAILY tab 04/28/20 12/23/20 12/31/20 08:00 History Exam Exam Date and Time: December 30, 2020 0859 Height,Weight and Vital Signs: Height 4 ft 11 in Weight 49.895 kg Pertinent Lab Results Pertinent Lab Results: Laboratory Tests 11/27/20 11/27/20 12:42 12:42 WBC 5.8 Hgb 11.2 L Hct 37.1 Plt Count 297 Sodium 142 Potassium 4.3 Chloride 104 Carbon Dioxide 30 H BUN 10 Creatinine 0.79 Narrative Narrative: EKG 03/10/2020: NSR @ 64, ?[facility] Pharm Stress 03/23/20: No EKG evidence of ischemia, Nml myocardial perfusion imaging is normal, LV function is normal at rest and after regadenoson, nml wall motion and thickening, Assessment and Plan Assessment Anesthesia Assessment: Chart Reviewed Documented by User: Yessy Wood 12/31/20 11:51 HPI - Anesthesia Eval Consult details Narrative: Patient only having EGD today. Had full meals yesterday [facility] Past Medical History Medical History (Updated 12/31/20 @ 11:41 by Yessy Wood) Asthma CVA (cerebral vascular accident) Diabetes type 2, uncontrolled Diabetic polyneuropathy associated with type 2 diabetes mellitus Diabetic retinopathy associated with type 2 diabetes mellitus Dyslipidemia Fatty liver disease, nonalcoholic GERD (gastroesophageal reflux disease) History of sleep apnea History of umbilical hernia HTN (hypertension) Hypertension Hypoglycemia after GI (gastrointestinal) surgery Postural hypotension Primary biliary cholangitis Sjogrens syndrome Subclinical hypothyroidism Family History Family History Father [place] (myocardial infarction) Diabetes mellitus Mother Diabetes mellitus CVA (cerebral vascular accident) Maternal Grandmother Stomach cancer Sister Hemorrhagic cerebrovascular accident (CVA) Family history of problems with anesthesia: No Surgical History Surgical History History of carpal tunnel release History of esophagogastroduodenoscopy (EGD) History of laparoscopic appendectomy History of partial hysterectomy Hx of section Hx of colonoscopy Hx of gastric bypass Hx of tonsillectomy History of Problems with Anesthesia: No Social History Social History Household Members: Spouse Alcohol intake: never Patient Tobacco Use Status: Never used Tobacco Use of substances other than those prescribed or required for medical reasons: No Are you DNR?: No Advance Directives: Yes Advance Directives Information Provided: Yes Advance Directives on File: Yes Advance Directives Date on File: 08/11/18 Recently lost weight without trying: No Meds Allergies Allergy/AdvReac Type Severity Reaction Status Date / Time Sulfa (Sulfonamide AdvReac Mild Stomach Verified 11/27/20 11:13 Antibiotics) Upset [SULFA (SULFONAMIDE ANTIBIOTICS)] Latex, Natural Rubber AdvReac Rash Verified 11/27/20 11:13 Morphine Sulfate AdvReac Unknown Abdominal Uncoded 05/20/20 11:12 Pain Home Medications Medication Instructions Recorded Confirmed Last Taken Type albuterol sulfate 90 mcg/actuation 1 inh INHALATION QID 04/28/20 12/23/20 Unknown History aerosol inhaler blood sugar diagnostic #10 ea 04/28/20 12/23/20 Unknown History fludrocortisone 0.1 mg tablet 0.05 mg PO DAILY 04/28/20 12/23/20 Unknown History gabapentin 300 mg capsule 300 mg PO TID 04/28/20 12/23/20 12/31/20 08:00 History lancets 28 gauge #100 ea 04/28/20 12/23/20 Unknown History midodrine 2.5 mg tablet 2.5 mg PO BID 04/28/20 12/23/20 12/31/20 08:00 History risperidone 1 mg tablet 1 mg PO BEDTIME 04/28/20 12/23/20 Unknown History sertraline 100 mg tablet 200 mg PO DAILY tab 04/28/20 12/23/20 12/31/20 08:00 History Exam Height,Weight and Vital Signs: Vital Signs Temp Pulse Resp BP Pulse Ox 12/31/20 11:29 68 179/71 H 12/31/20 10:53 97.9 F 71 16 165/75 H 99 Pertinent Lab Results Pertinent Lab Results: Lab Results 12/31/20 Range/Units 10:43 POC Glucose 154 H (60-115) mg/dL Airway Mallampati Class: I TM Dist: >3cm Neck ROM: Full Loose/Missing/Broken Teeth: Yes (Some missing) Heart: RRR Lungs: CTAB Assessment and Plan Assessment Anesthesia Assessment: Anesthesia Plan Discussed and Chart Reviewed Final Anesthetic Review NPO: Yes ASA Class: III Final Preanesthetic Review: No Changes in Pt Med Stat, Meds/Allgs Chart Reviewed, Consent Obtained/Reviewed and Anes Risks/Benef Reviewed Patient Risk: Intermediate Procedure Risk: Low Assessment/Block/Sedation in SS: Assess/Block/Sedation-SS Anesthetic Plan Anesthetic Plan: MAC: Disposition: Standard PACU
[2020-12-31 10:47] LABS: Glucose, Whole Blood 154 mg/dL (60-115)
[2020-12-31 10:53] VITALS: BP 165/75; PULSE 71; RESP 16; TEMP 36.6; O2SAT 99
[2020-12-31] MEDS: Lactated Ringers 500 ML 20 ML IVCONT (11:27)
[2020-12-31 11:29] VITALS: BP 179/71; PULSE 68
--- NOTE | 2020-12-31 11:32 | PC.NURSE ---
htn. asymptomatic. md chinchilla aware. no new orders at this time. has a hx and took her am med for her htn.
--- NOTE | 2020-12-31 11:46 | MHC.SHP ---
Pre-Procedural Eval Section A Date of Service: 12/31/20 Section B Chief Complaint: anemia Relevant Family History (Specify if Yes): No Relevant Social History: None Present Medications: see Short Stay Collaborative assessment Medical History: Significant History (Asthma CVA (cerebral vascular accident) Diabetes type 2, uncontrolled Diabetic polyneuropathy associated with type 2 diabetes mellitus Diabetic retinopathy associated with type 2 diabetes mellitus Dyslipidemia Fatty liver disease, nonalcoholic GERD (gastroesophageal reflux disease) History of sleep ) History of Previous Operations: Relevant previous surgery/procedure and date(s) (History of carpal tunnel release History of esophagogastroduodenoscopy (EGD) History of laparoscopic appendectomy History of partial hysterectomy Hx of section Hx of colonoscopy Hx of gastric bypass Hx of tonsillectomy) Allergies: Allergies Allergy/AdvReac Type Severity Reaction Status Date / Time Sulfa (Sulfonamide AdvReac Mild Stomach Verified 11/27/20 11:13 Antibiotics) Upset [SULFA (SULFONAMIDE ANTIBIOTICS)] Latex, Natural Rubber AdvReac Rash Verified 11/27/20 11:13 Morphine Sulfate AdvReac Unknown Abdominal Uncoded 05/20/20 11:12 Pain Review of Systems Sugical H&P ROS: Negative: Constitution, Cardiovascular, Respiratory, Neurological, Psychiatric, Hem-Onc, Allergic/Immunologic, Gastrointestinal, Genitourinary, Musculoskeletal, Integumentary, Endocrine and Eyes/Ears/Nose/Throat Exam Surgical H&P Exam: Normal: HEENT, Normal: Heart, Normal: Lungs, Normal: Extremities, Normal: Abdomen, Normal: Skin and Normal: Neurological Plan Diagnosis/Plan: Unchanged I have reviewed the history and physical and performed a pertinent physical examination on my patient. No changes have occurred unless specified.
--- NOTE | 2020-12-31 12:16 | PM.OP ---
Brief Operative Note Date of Service: 12/31/20 Pre-op diagnosis: anemia Post-op diagnosis: same Procedure: see op note Surgeon: Luis Lucas MD Anesthesia: MAC Was an Youth Probation Officer used for this Procedure?: No Estimated blood loss (mL): 0 Condition: stable Disposition: PACU
--- NOTE | 2020-12-31 12:18 | W.PM.OPN ---
Operative Note Operative Note Date of Service: 12/31/20 Narrative: Procedure Description: EGD FLEXIBLE TRANSORAL UPPER GASTROINTESTINAL ENDOSCOPY UPPER ENDOSCOPY Consent: Indications for the procedure and potential complications of bleeding, perforation, reaction to medications and missed diagnosis were discussed with the patient and informed consent was obtained. Instrument: Olympus GIF H 190 J mid size upper endoscope Monitoring: Vital signs and clinical assessment, continuous EKG monitoring, Pulse oximetry, Carbon Dioxide monitoring and blood pressure monitoring were done throughout the procedure. Procedure: The patient was placed in the left lateral decubitis position and pre-procedure medications were administered and a bite block was placed. The endoscope was inserted into the mouth and advanced under direct vision to the jejunum. A careful inspection was made as the upper endoscope was withdrawn including a retroflexed examination of the proximal stomach; Findings and interventions are described below. Pt had history of gastric bypass Findings: Larynx:normal Esophagus: GE junction at 32 cm, diaphragm hiatus at 32 cm, no varices or esophagitis. Stomach: Pouch appeared normal. Grade 2 flap valve on retroflexed examination of the cardia. At the anastomosis retained suture noted with some surrounding erythema, with v long string, unable to remove with forceps. There were 3 retained radha also noted with surrounding erythema, these were removed with forceps to prevent ulceration. jejunum: Normal, bx taken Intervention: Biopsies as noted above, removal of retained radha Impression/Findings: retained radha and suture PLAN: repeat EGD with endo scissors to remove suture at same time as colonoscopy (colonoscopy today was cancelled due to patient eating all day yesterday)
[2020-12-31 12:25] VITALS: BP 121/51; PULSE 65; RESP 16; TEMP 37.1; O2SAT 100
[2020-12-31 12:41] VITALS: BP 161/80; PULSE 74; RESP 18; TEMP 37.1; O2SAT 98
[2020-12-31 12:53] VITALS: BP 161/80; O2SAT 98
[2020-12-31] MEDS: Albuterol Sulfate (0.083%) 2.5 MG/3 ML VIAL.NEB INHALE (13:19)
[2020-12-31 13:20] VITALS: PULSE 78; O2SAT 96
[2020-12-31] MEDS: Mag&Al/Sim/Diphenhyd/Lidocaine 10 ML ORAL.SUSP PO (13:40)
== END 2020-12-31 14:15 | disposition home or self-care (01) ==
PROVIDERS: PCP Internal Medicine; Visit Provider Internal Medicine Gastroenterology
PROC: 0DJ08ZZ Inspection of Upper Intestinal Tract, Via Natural or Artificial Opening Endoscopic (ICD-10-PCS; CPT 43235; principal; 2020-12-31 11:40)
DX: D64.9 Anemia, unspecified (principal); K44.9 Diaphragmatic hernia without obstruction or gangrene; Z98.84 Bariatric surgery status; Z18.89 Other specified retained foreign body fragments; Z98.0 Intestinal bypass and anastomosis status; I63.81 Other cerebral infarction due to occlusion or stenosis of small artery; R27.0 Ataxia, unspecified; J45.20 Mild intermittent asthma, uncomplicated; E11.42 Type 2 diabetes mellitus with diabetic polyneuropathy; E11.319 Type 2 diabetes mellitus with unspecified diabetic retinopathy without macular edema; I10 Essential (primary) hypertension; I95.1 Orthostatic hypotension; Z79.899 Other long term (current) drug therapy; Z79.82 Long term (current) use of aspirin; Z88.8 Allergy status to other drugs, medicaments and biological substances; Z91.040 Latex allergy status; M79.5 Residual foreign body in soft tissue
CPT/HCPCS: 43239; 82947; 88305; 88342; 94640; J3010

== ENCOUNTER → 2021-01-05 11:31 | Outpatient (BNVA) | payer OTHER, SELFPAY | PROVIDERS: PCP Internal Medicine; Visit Provider Internal Medicine | DX: G47.33 Obstructive sleep apnea (adult) (pediatric) (principal); J45.909 Unspecified asthma, uncomplicated | CPT/HCPCS: 99212 ==

== ENCOUNTER 2021-01-22 08:51 | Outpatient (REF) | payer OTHER, SELFPAY ==
[2021-01-22 10:19] LABS: MANUAL DIFF FLAG NO
[2021-01-22 10:25] LABS: Eosinophils Absolute Auto 0.2 X10*3/uL (0.0-0.4); Eosinophils Percent Auto 3.7 % (0-4); Hematocrit 35.4 % (37-47); Hemoglobin 11.1 g/dl (12.0-16.0); Imm Gran Abs Auto 0.01 X10*3/uL (0.00-0.03); Imm Gran Pct Auto 0.2 % (0.0-0.4); Lymphocytes Absolute Auto 1.9 X10*3/uL (1.2-4.9); Lymphocytes Percent Auto 46.3 % (20-40); Mean Corpuscular HGB Conc 31.4 g/dl (31.0-35.0); Mean Corpuscular Hemoglobin 25.3 pg (27.0-33.0); Mean Corpuscular Volume 80.6 fL (80-98); Monocytes Absolute Auto 0.4 X10*3/uL (0.1-1.2); Monocytes Percent Auto 9.1 % (2-11); Neutrophils Absolute Auto 1.6 X10*3/uL (2.0-8.3); Neutrophils Percent Auto 39.7 % (45-73); Platelet Count 195 X10*3/uL (160-400); Red Blood Count 4.39 X10*6/uL (4.20-5.50); Red Cell Distribution Width 18.3 % (11.0-16.0); White Blood Count 4.1 X10*3/uL (4.8-10.8)
[2021-01-22 10:28] LABS: INTERNATIONAL NORM RATIO 1.1 (0.9-1.1); Prothrombin Time 12.8 SEC (9.9-13.0)
[2021-01-22 10:51] LABS: Alanine Aminotransferase 119 U/L (0-31); Albumin Level 3.3 g/dL (3.5-5.0); Alkaline Phosphatase 791 U/L (39-117); Anion Gap 10 (12-20); Aspartate Amino Transferase 159 U/L (5-31); Bilirubin Total 0.4 mg/dL (0.0-1.0); Blood Urea Nitrogen 12 mg/dL (9-16); Calcium 8.8 mg/dL (8.4-10.2); Carbon Dioxide 36 mmol/L (22-29); Chloride 100 mmol/L (96-108); Estimated Glomerular Filt Rate > 60; Glucose Random 220 mg/dL (60-115); Sodium 143 mmol/L (135-145); Total Protein 7.3 g/dL (6.5-8.0)
[2021-01-22 11:09] LABS: ~Hepatitis B Surface Antibody REACTIVE (Nonreactive)
[2021-01-22 11:13] LABS: Ferritin 69 ng/mL (10-250); Vitamin D 25-OH Total 34.1 ng/mL (>30)
[2021-01-22 11:27] LABS: Folate 9.2 ng/mL (> or = 4.0); Vitamin B12 955 pg/mL (200-900)
[2021-01-22 11:40] LABS: Creatinine Urine 232.13 mg/dL
[2021-01-25 20:16] LABS: Zinc 53 mcg/dL (60-130)
[2021-01-27 11:27] LABS: Nicotinamide <20 ng/mL; Vit B3 - Nicotinic Acid <20 ng/mL
[2021-01-27 18:51] LABS: Vitamin C 0.3 mg/dL (0.3-2.7)
[2021-01-27 19:16] LABS: Vitamin A 32 mcg/dL (38-98)
[2021-01-27 19:42] LABS: Beta-Gamma Tocopherol <1.0 mg/L (<=4.3)
[2021-01-28 21:36] LABS: Vitamin K1 115 pg/mL (130-1500)
[2021-01-29 11:00] LABS: Vitamin B6 2.5 ng/mL (2.1-21.7)
[2021-01-29 18:56] LABS: Vitamin B5 (Pantothenic Acid) 48 ng/mL (<275)
== END 2021-01-22 08:52 | disposition home or self-care (01) ==
LOC: HO.LAB 08:51
PROVIDERS: Referring Provider Internal Medicine; Visit Provider Internal Medicine Gastroenterology
DX: D12.6 Benign neoplasm of colon, unspecified (principal); D64.9 Anemia, unspecified; K74.3 Primary biliary cirrhosis; K75.81 Nonalcoholic steatohepatitis (NASH); E11.65 Type 2 diabetes mellitus with hyperglycemia; Z98.84 Bariatric surgery status
CPT/HCPCS: 36415; 80053; 82180; 82306; 82607; 82728; 82746; 84207; 84446; 84590; 84591; 84597; 84630; 85025; 85610; 86706; 99212

== ENCOUNTER 2021-03-16 11:38 | Emergency (ER) | payer OTHER, SELFPAY ==
--- NOTE | ~2021-03-16 | XR_ITS ---
EXAMINATION: XR CHEST CLINICAL INFORMATION: Cough COMPARISON: Previous chest x-ray most recent July 2020 TECHNIQUE: Frontal view of the chest was obtained. FINDINGS: The cardiac and mediastinal contours are normal. The lungs are clear. There is no pleural effusion or pneumothorax. There is slight elevation of the right hemidiaphragm that is stable. Bony structures are unremarkable. XR/XR chest 1V IMPRESSION: No evidence for acute disease in the chest.
--- NOTE | ~2021-03-16 | XR_ITS ---
EXAMINATION: XR HAND WRIST, LEFT CLINICAL INFORMATION: Trauma, diffuse pain COMPARISON: None TECHNIQUE: 3 views of the left hand and wrist are obtained in the large [id number] images to include both areas. A navicular view of the wrist is also included for a total of 4 views. FINDINGS: There is no acute or healing fracture or dislocation or destructive process. Mild dorsal bowing of the distal radius is present without cortical disruption. The pronator quadratus fat pad appears normal. The ulnar variance is neutral. There is no focal wrist or hand joint narrowing or erosive change. XR/XR hand wrist LT IMPRESSION: No acute bony abnormality.
[2021-03-16 12:19] VITALS: BP 144/71; PULSE 77; RESP 18; TEMP 36.6; O2SAT 98; BMI 20.1
[2021-03-16 13:00] LABS: IDNOW Serial# 55D5AD1C
[2021-03-16 13:01] LABS: COVID-19 Test Negative (Negative)
[2021-03-16 15:03] LABS: MANUAL DIFF FLAG NO
[2021-03-16 15:06] LABS: Basophils Percent Auto 0.6 % (0-2); Eosinophils Absolute Auto 0.1 X10*3/uL (0.0-0.4); Eosinophils Percent Auto 2.4 % (0-4); Hematocrit 40.7 % (37-47); Hemoglobin 12.8 g/dl (12.0-16.0); Imm Gran Abs Auto 0.01 X10*3/uL (0.00-0.03); Imm Gran Pct Auto 0.2 % (0.0-0.4); Lymphocytes Absolute Auto 2.4 X10*3/uL (1.2-4.9); Lymphocytes Percent Auto 45.1 % (20-40); Mean Corpuscular HGB Conc 31.4 g/dl (31.0-35.0); Mean Corpuscular Hemoglobin 25.3 pg (27.0-33.0); Mean Corpuscular Volume 80.4 fL (80-98); Monocytes Absolute Auto 0.4 X10*3/uL (0.1-1.2); Monocytes Percent Auto 7.4 % (2-11); Neutrophils Absolute Auto 2.4 X10*3/uL (2.0-8.3); Neutrophils Percent Auto 44.3 % (45-73); Platelet Count 242 X10*3/uL (160-400); Red Blood Count 5.06 X10*6/uL (4.20-5.50); Red Cell Distribution Width 17.3 % (11.0-16.0); White Blood Count 5.4 X10*3/uL (4.8-10.8)
[2021-03-16 15:06] LABS: Glucose Urine UA NEG (NEG); Leukocyte Esterase Urine 3+ (NEG); Nitrite Urine NEG (NEG); Specific Gravity - Urine 1.015 (1.005-1.025); UACC Culture Trigger YES; Urine Blood NEG (NEG); Urine Ketones 5 MG/DL (NEG); Urine Protein TRACE MG/DL (NEG-TRACE)
[2021-03-16 15:07] LABS: Appearance Urine CLOUDY; Color Urine YELLOW
[2021-03-16 15:26] LABS: Bacteria Urine 3+ /LPF; Mucus Urine TRACE /LPF; RBC Urine 0 /HPF (0); Squamous Epithelial Cell Urine TRACE /LPF; WBC Urine 50-75 /HPF (0-4)
[2021-03-16 15:45] VITALS: BP 190/83; PULSE 69; RESP 20; TEMP 36.4; O2SAT 98
[2021-03-16] MEDS: 0.9 % Sodium Chloride 1,000 ML 999 ML IVCONT (16:18)
[2021-03-16 16:21] LABS: Alanine Aminotransferase 79 U/L (0-31); Albumin Level 3.4 g/dL (3.5-5.0); Alkaline Phosphatase 616 U/L (39-117); Anion Gap 12 (12-20); Aspartate Amino Transferase 106 U/L (5-31); Bilirubin Direct 0.2 mg/dL (0.0-0.5); Bilirubin Total 0.6 mg/dL (0.0-1.0); Blood Urea Nitrogen 11 mg/dL (9-16); Calcium 8.4 mg/dL (8.4-10.2); Carbon Dioxide 33 mmol/L (22-29); Chloride 100 mmol/L (96-108); Creatinine Clr Calc Pharmacy 67.5; Estimated Glomerular Filt Rate > 60; Glucose Random 68 mg/dL (60-115); Magnesium 1.5 mg/dL (1.6-2.6); Sodium 142 mmol/L (135-145); Total Protein 7.8 g/dL (6.5-8.0)
--- NOTE | 2021-03-16 16:39 | ED_ITS ---
HPI - General Adult General Chief complaint: General Medical Stated complaint: loss of taste & smell - fall wrist injury Time Seen by Provider: 03/16/21 14:21 Source: patient Mode of arrival: ambulatory History of Present Illness HPI narrative: 60-year-old female with a PMHx of asthma, CVA, DM, HLD, GERD, HTN, postural hypotension, presenting to the ED complaining of loss of taste, feeling sick, generalized weakness/fatigue, decreased p.o. intake, nonproductive cough, mild SOB, and atraumatic left wrist pain x couple days. Requesting COVID-19 testing. Denies known left wrist injury/fall or trauma. Reports skin feels like it is burning. Denies CP, fever, chills, abdominal pain, nausea/vomiting, dysuria, recent travel, known COVID-19 exposure Related Data Home Medications Medication Instructions Recorded Confirmed albuterol sulfate 90 mcg/actuation 1 inh INHALATION QID 04/28/20 12/23/20 aerosol inhaler blood sugar diagnostic (FreeStyle #10 ea 04/28/20 12/23/20 Lite Strips) fludrocortisone 0.1 mg tablet 0.05 mg PO DAILY 04/28/20 12/23/20 lancets 28 gauge (FreeStyle #100 ea 04/28/20 12/23/20 Lancets) midodrine 2.5 mg tablet 2.5 mg PO BID 04/28/20 12/23/20 risperidone 1 mg tablet 1 mg PO BEDTIME 04/28/20 12/23/20 sertraline 100 mg tablet 200 mg PO DAILY tab 04/28/20 12/23/20 Previous Rx's Medication Instructions Recorded acarbose 100 mg tablet 100 mg PO TID 30 Days #90 tab 08/31/20 metformin 500 mg tablet 500 mg PO DAILY 30 Days #30 tab 08/31/20 aspirin 81 mg tablet,delayed 81 mg PO DAILY #90 tab 11/12/20 release atorvastatin 40 mg tablet 40 mg PO DAILY #90 tab 11/12/20 cholecalciferol (vitamin D3) 50 50 mcg PO DAILY 30 Days #30 cap 11/16/20 mcg (2,000 unit) capsule bisacodyl 5 mg tablet,delayed 20 mg PO ONCE 1 Days #4 tab 01/22/21 release (Dulcolax (bisacodyl)) polyethylene glycol 3350 17 238 g PO ONCE #238 g 01/22/21 gram/dose oral powder (Miralax) simethicone 180 mg capsule (Gas 180 mg PO BID #90 cap 01/22/21 Relief (simethicone)) insulin glargine 100 unit/mL (3 5 unit SUBCUT QPM #15 ml 02/24/21 mL) subcutaneous pen (Lantus Solostar U-100 Insulin) pen needle, diabetic 31 gauge x #100 ea 02/24/2109/22 (Comfort EZ Pen [place]) ursodiol 250 mg tablet 250 mg PO TID #270 tab 03/04/21 acetaminophen 500 mg tablet 500 mg PO Q6H PRN #20 tab 03/16/21 (Tylenol Extra Strength) cefuroxime axetil 250 mg tablet 250 mg PO BID 7 Days #14 tab 03/16/21 lidocaine 5 % topical patch 1 patch TOPICAL DAILY PRN #30 ea 03/16/21 (Lidoderm) MDD remove after 12 hours Allergies Allergy/AdvReac Type Severity Reaction Status Date / Time Sulfa (Sulfonamide AdvReac Mild Stomach Verified 02/24/21 11:04 Antibiotics) Upset [SULFA (SULFONAMIDE ANTIBIOTICS)] Latex, Natural Rubber AdvReac Unknown Rash Verified 02/24/21 11:04 Morphine Sulfate AdvReac Unknown Abdominal Uncoded 05/20/20 11:12 Pain Review of Systems Review of Systems: Constitutional: No Fever, No Chills, No Night Sweats, + Fatigue, No Malaise ENT/Mouth: No Ear Pain, No Sinus Pain, No sore throat, No Rhinorrhea, No Swallowing Difficulty Eyes: No Eye Pain, No Swelling, No Redness, No Vision Changes Cardiovascular: No Chest Pain, + SOB, No Palpitations Respiratory: + Cough, No Sputum, No Wheezing Gastrointestinal: No Nausea, No Vomiting, No Diarrhea, No Constipation, No Abdominal pain Genitourinary: No Dysuria, No Urinary Frequency, No Hematuria Musculoskeletal: + joint pain, No Myalgias, No Joint Swelling Skin: No Skin Lesions, No rash Neuro: + Weakness, No Numbness, No Loss of Consciousness, No Dizziness, No Headache Yes all other systems are reviewed and are negative Neurologic: Denies Abnormal speech present [facility] Past Medical History Attestation statement: The following information was validated with the patient. Medical History (Updated 03/16/21 @ 17:54 by CHLOÉ Khalil) Asthma CVA (cerebral vascular accident) Diabetes type 2, uncontrolled Diabetic polyneuropathy associated with type 2 diabetes mellitus Diabetic retinopathy associated with type 2 diabetes mellitus Dyslipidemia Fatty liver disease, nonalcoholic GERD (gastroesophageal reflux disease) History of sleep apnea History of umbilical hernia HTN (hypertension) Hypertension Hypoglycemia after GI (gastrointestinal) surgery Postural hypotension Primary biliary cholangitis Sjogrens syndrome Subclinical hypothyroidism Surgical History History of carpal tunnel release History of esophagogastroduodenoscopy (EGD) History of laparoscopic appendectomy History of partial hysterectomy Hx of section Hx of colonoscopy Hx of dilation and curettage Hx of gastric bypass Hx of tonsillectomy Family History Family History Father SD (myocardial infarction) Diabetes mellitus Mother Diabetes mellitus CVA (cerebral vascular accident) Maternal Grandmother Stomach cancer Sister Hemorrhagic cerebrovascular accident (CVA) Social History Social History Household Members: Spouse Housing: Apartment Alcohol intake: never Patient Tobacco Use Status: Never used Tobacco e-Cigarette/Vaping Use: Never Used Second Hand Smoke Exposure: No Advance Directives: No Advance Directives Information Provided: No Advance Directives Date on File: 08/11/18 Patient : No service: No Current occupational status: retired and disabled Physical Exam Vital Signs: Vital Signs: Last Vital Signs Temp 97.6 F 03/16/21 15:45 Pulse 69 03/16/21 15:45 Resp 20 03/16/21 15:45 BP 190/83 H 03/16/21 15:45 Pulse Ox 98 03/16/21 15:45 Body Mass Index 20.1 Const: General: cooperative, healthy appearing and no acute distress Orientation/consciousness: patient oriented x3 Limitations: no limitations HENMT: Head: Yes normal to inspection Ears: hearing grossly normal harvey aterally General nose exam: Normal external nose present Face and sinus: Yes normal facial exam Eyes: General: appearance normal, both eyes and all related structures Pupils: Equal, round and reactive pupils present EOM: EOMs intact bilaterally Neck: Neck: Yes normal visual inspection, Yes no lymphadenopathy and Yes no meningeal signs Resp: Effort & Inspection: normal respiratory effort Auscultation: clear to auscultation bilaterally, no crackles and no wheezes Cardio: Rate: regular rate Heart sounds: S1 normal heart sound present and S2 normal heart sound present GI: Inspection: Yes normal to inspection Palpation (GI): Soft to palpation, nontender, no guarding and not rigid Skin: Rashes: no rashes Wounds: no wounds Neuro: General: patient oriented x3, tone normal, moves all extremities, no meningeal signs, no focal motor deficits and CN's II-XI intact bilaterally Cranial nerves: Yes Equal, round and reactive pupils present Cognition (Neuro): normal cognition Speech: No Abnormal speech present Gait exam (Neuro): Shuffling gait present (At baseline from prior CVA) Motor exam (neuro): 5/5 motor strength present throughout Extrem: Other: Left wrist without visible deformity. No erythema/cellulitis. No swelling. Skin is tender to palpation per patient. No bony tenderness. FROM intact. NV intact General: Yes normal to inspection Course Course Course Narrative: XR chest 1V IMPRESSION: No evidence for acute disease in the chest. XR hand wrist LT IMPRESSION: No acute bony abnormality.? -[id number]--no leukocytosis. H&H is stable. Potassium low at 3.0 >> p.o. repletion ordered, magnesium also slightly low at 1.5 > p.o. repletion given -AST/ALT acute on chronically elevated. Alk-phos chronically elevated -UA with 5 ketones and infected > P.o. Ceftin given in the ED -COVID-19 negative Medical Decision Making [facility] Narrative Medical decision making narrative: 60-year-old female with a PMHx of asthma, CVA, DM, HLD, GERD, HTN, postural hypotension, presenting to the ED complaining of loss of taste, feeling sick, generalized weakness/fatigue, decreased p.o. intake, nonproductive cough, mild SOB, and atraumatic left wrist pain x couple days. On exam VSS, NAD, physical exam as above. Concern for viral syndrome/COVID-19 vs metabolic abnormalities. Rule out wrist fracture vs paresthesias. No evidence of active skin infection. Lower concern for pneumonia but will obtain CXR Plan: Labs, UA, imaging, IVF, COVID-19 testing, reassess Lab Data Result diagrams: 03/16/21 14:55 03/16/21 15:57 Labs: Lab Results 03/16/21 03/16/21 03/16/21 Range/Units 12:42 14:55 14:56 WBC 5.4 (4.8-10.8) X10*3/uL RBC 5.06 (4.20-5.50) X10*6/uL Hgb 12.8 (12.0-16.0) g/dl Hct 40.7 (37-47) % MCV 80.4 (80-98) fL MCH 25.3 L (27.0-33.0) pg MCHC 31.4 (31.0-35.0) g/dl RDW 17.3 H (11.0-16.0) % Plt Count 242 (160-400) X10*3/uL MPV TNP Immature Gran % (Auto) 0.2 (0.0-0.4) % Neut % (Auto) 44.3 L (45-73) % Lymph % (Auto) 45.1 H (20-40) % [place] % (Auto) 7.4 (2-11) % Eos % (Auto) 2.4 (0-4) % Baso % (Auto) 0.6 (0-2) % Lymph # (Auto) 2.4 (1.2-4.9) X10*3/uL [place] # (Auto) 0.4 (0.1-1.2) X10*3/uL Eos # (Auto) 0.1 (0.0-0.4) X10*3/uL Baso # (Auto) 0.0 (0.0-0.2) X10*3/uL Abs Immat Gran (auto) 0.01 (0.00-0.03) X10*3/uL Absolute Neuts (auto) 2.4 (2.0-8.3) X10*3/uL Absolute Nucleated RBC 0.000 (0.0-0.012) X10*3/uL Nucleated RBC % (auto) 0.0 (0.0-0.2) /100WBC Sodium (135-145) mmol/L Potassium (3.3-5.1) mmol/L Chloride (96-108) mmol/L Carbon Dioxide (22-29) mmol/L Anion Gap (12-20) BUN (9-16) mg/dL Creatinine (0.5-1.4) mg/dL Estim Creat Clear Calc Estimated GFR Random Glucose (60-115) mg/dL Calcium (8.4-10.2) mg/dL Magnesium (1.6-2.6) mg/dL Total Bilirubin (0.0-1.0) mg/dL Direct Bilirubin (0.0-0.5) mg/dL AST (5-31) U/L ALT (0-31) U/L Alkaline Phosphatase (39-117) U/L Total Protein (6.5-8.0) g/dL Albumin (3.5-5.0) g/dL Urine Color YELLOW Urine Appearance CLOUDY Urine pH 6.0 (5.0-8.0) Ur Specific [place] 1.015 (1.005-1.025) Urine Protein TRACE (NEG-TRACE) MG/DL Urine Glucose (UA) NEG (NEG) MG/DL Urine Ketones 5 (NEG) MG/DL Urine Blood NEG (NEG) Urine Nitrite NEG (NEG) Ur Leukocyte Esterase 3+ H (NEG) Urine RBC 0 (0) /HPF Urine WBC 50-75 H (0-4) /HPF Ur Squamous Epith Cells TRACE /LPF Urine Bacteria 3+ /LPF Urine Mucus TRACE /LPF COVID-19 (JAMES) Negative (Negative) COVID-19 Clin Com See Note 03/16/21 Range/Units 15:57 WBC (4.8-10.8) X10*3/uL RBC (4.20-5.50) X10*6/uL Hgb (12.0-16.0) g/dl Hct (37-47) % MCV (80-98) fL MCH (27.0-33.0) pg MCHC (31.0-35.0) g/dl RDW (11.0-16.0) % Plt Count (160-400) X10*3/uL MPV Immature Gran % (Auto) (0.0-0.4) % Neut % (Auto) (45-73) % Lymph % (Auto) (20-40) % [place] % (Auto) (2-11) % Eos % (Auto) (0-4) % Baso % (Auto) (0-2) % Lymph # (Auto) (1.2-4.9) X10*3/uL [place] # (Auto) (0.1-1.2) X10*3/uL Eos # (Auto) (0.0-0.4) X10*3/uL Baso # (Auto) (0.0-0.2) X10*3/uL Abs Immat Gran (auto) (0.00-0.03) X10*3/uL Absolute Neuts (auto) (2.0-8.3) X10*3/uL Absolute Nucleated RBC (0.0-0.012) X10*3/uL Nucleated RBC % (auto) (0.0-0.2) /100WBC Sodium 142 (135-145) mmol/L Potassium 3.0 L (3.3-5.1) mmol/L Chloride 100 (96-108) mmol/L Carbon Dioxide 33 H (22-29) mmol/L Anion Gap 12 (12-20) BUN 11 (9-16) mg/dL Creatinine 0.68 (0.5-1.4) mg/dL Estim Creat Clear Calc 67.5 Estimated GFR > 60 Random Glucose 68 D (60-115) mg/dL Calcium 8.4 (8.4-10.2) mg/dL Magnesium 1.5 L (1.6-2.6) mg/dL Total Bilirubin 0.6 (0.0-1.0) mg/dL Direct Bilirubin 0.2 (0.0-0.5) mg/dL AST 106 H (5-31) U/L ALT 79 H (0-31) U/L Alkaline Phosphatase 616 H D (39-117) U/L Total Protein 7.8 (6.5-8.0) g/dL Albumin 3.4 L (3.5-5.0) g/dL Urine Color Urine Appearance Urine pH (5.0-8.0) Ur Specific [place] (1.005-1.025) Urine Protein (NEG-TRACE) MG/DL Urine Glucose (UA) (NEG) MG/DL Urine Ketones (NEG) MG/DL Urine Blood (NEG) Urine Nitrite (NEG) Ur Leukocyte Esterase (NEG) Urine RBC (0) /HPF Urine WBC (0-4) /HPF Ur Squamous Epith Cells /LPF Urine Bacteria /LPF Urine Mucus /LPF COVID-19 (JAMES) (Negative) COVID-19 Clin Com Discharge Plan Discharge Clinical Impression: UTI (urinary tract infection), Hypokalemia, Acute wrist pain, Weakness Patient Disposition: Home, Self-Care Instructions: Weakness (ED), Arthralgia (ED), Urinary Tract Infection in Older Adults (ED) Additional Instructions: You have a urine infection, Ceftin as antibiotic, please take as prescribed Tylenol help with her wrist pain, in addition ice her wrist Please follow-up with her primary care doctor Make sure your staying hydrated at home You should consider taking aefl-vxx-htmheth potassium and magnesium supplements/have your potassium and magnesium recheck by your primary care doctor in 1 week If her symptoms persist or worsen/become unbearable patient return to the ED Tiene ventura infecci?n de orina, Ceftin kelly antibi?roni, t?edwards seg?n lo prescrito. Tylenol ayuda con ahmadi dolor de mu?eca, adem?s de hielo en ahmadi mu?eca Neda un seguimiento con ahmadi m?dico de atenci?n primaria. Aseg?rate de mantenerte hidratado en casa Debe considerar dick suplementos de potasio y magnesio de venta shauna / hacer que ahmadi m?dico de atenci?n primaria vuelva a controlar ahmadi potasio y magnesio en 1 semana Si darlene s?ntomas persisten o empeoran / se vuelven insoportables, la paciente regresa al servicio de urgencias. Prescriptions: New cefuroxime axetil 250 mg tablet 250 mg PO BID 7 Days Qty: 14 RF: 0 acetaminophen [Tylenol Extra Strength] 500 mg tablet 500 mg PO Q6H PRN (Reason: pain or fever) Qty: 20 RF: 0 lidocaine [Lidoderm] 5 % adhesive patch,medicated 1 patch topical DAILY MDD remove after 12 hours PRN (Reason: pain) Qty: 30 R F: 0 No Action cholecalciferol (vitamin D3) 50 mcg (2,000 unit) capsule 50 mcg PO DAILY 30 Days Qty: 30 RF: 11 ursodiol 250 mg tablet 250 mg PO TID Qty: 270 RF: 1 aspirin 81 mg tablet,delayed release (DR/EC) 81 mg PO DAILY Qty: 90 RF: 3 atorvastatin 40 mg tablet 40 mg PO DAILY Qty: 90 RF: 3 Lantus Solostar U-100 Insulin 100 unit/mL (3 mL) insulin pen 5 unit subcut QPM Qty: 15 RF: 4 (DME) pen needle, diabetic [Comfort EZ Pen [place]] 31 gauge x 3/16 needle See Rx Instructions .Route Qty: 100 RF: 3 polyethylene glycol 3350 [Miralax] 17 gram/dose powder 238 g PO ONCE Qty: 238 RF: 0 bisacodyl [Dulcolax (bisacodyl)] 5 mg tablet,delayed release (DR/EC) 20 mg PO ONCE 1 Days Qty: 4 RF: 0 simethicone [Gas Relief (simethicone)] 180 mg capsule 180 mg PO BID Qty: 90 RF: 0 fludrocortisone 0.1 mg tablet 0.05 mg PO DAILY RF: 0 midodrine 2.5 mg tablet 2.5 mg PO BID RF: 0 sertraline 100 mg tablet 200 mg PO DAILY RF: 0 albuterol sulfate 90 mcg/actuation HFA aerosol inhaler 1 inh inhalation QID RF: 0 risperidone 1 mg tablet 1 mg PO BEDTIME RF: 0 (DME) FreeStyle Lite Strips Strip See Rx Instructions .ROUTE .MEDSUPPLY Qty: 10 RF: 0 (DME) lancets [FreeStyle Lancets] 28 gauge misc See Rx Instructions .ROUTE .MEDSUPPLY Qty: 100 RF: 0 metformin 500 mg tablet 500 mg PO DAILY 30 Days Qty: 30 RF: 6 acarbose 100 mg tablet 100 mg PO TID 30 Days Qty: 90 RF: 6 Referrals: Po,Ludy Minaya MD [Primary Care Provider] - 2 days Print Language: Hungarian
[2021-03-16] MEDS: Magnesium Oxide 400 MG TABLET PO (17:48)
[2021-03-16] MEDS: Acetaminophen 325 MG TABLET 650 MG PO (17:48)
[2021-03-16] MEDS: Potassium Chloride Packet 20 MEQ PACKET 40 MEQ PO (17:48)
[2021-03-16] MEDS: Lidocaine 4 % Cream KIT 1 APPL TOPICAL (17:48)
[2021-03-16 18:00] VITALS: BP 184/90; PULSE 80; RESP 18; TEMP 36.6; O2SAT 99
== END 2021-03-16 18:14 | disposition home or self-care (01) ==
PROVIDERS: Physician Assistant; Emergency Provider Emergency Medicine; PCP Internal Medicine
DX: N39.0 Urinary tract infection, site not specified (principal); E87.6 Hypokalemia; R53.1 Weakness; M25.532 Pain in left wrist; R43.8 Other disturbances of smell and taste; Z20.822 Contact with and (suspected) exposure to COVID-19; R06.02 Shortness of breath; R05 Cough; I10 Essential (primary) hypertension; E11.9 Type 2 diabetes mellitus without complications; E78.5 Hyperlipidemia, unspecified; Z86.73 Personal history of transient ischemic attack (TIA), and cerebral infarction without residual deficits; Z98.84 Bariatric surgery status; Z79.899 Other long term (current) drug therapy
CPT/HCPCS: 36415; 71045; 73110; 73130; 80048; 80076; 81001; 83735; 85025; 87086; 87088; 87186; 87635; 96360; 96361; 99284

== ENCOUNTER 2021-03-19 10:17 | Outpatient (REF) | payer OTHER, SELFPAY ==
--- NOTE | ~2021-03-19 | XR_ITS ---
EXAMINATION: XR hand wrist LT CLINICAL INFORMATION: Left hand pain, injury COMPARISON: 03/16/2021 TECHNIQUE: PA, oblique, and lateral views of left hand and wrist FINDINGS: Osteopenia. Vascular calcifications consistent with diabetes. No fracture. No dislocation. Normal alignment. Mild first carpometacarpal osteoarthritis. XR/XR hand wrist LT IMPRESSION: Osteopenia and mild first carpometacarpal osteoarthritis. No acute osseous abnormality. No significant change from prior study 03/16/2021.
== END 2021-03-19 10:18 | disposition home or self-care (01) ==
LOC: HO.HMGCX 10:17
PROVIDERS: PCP Internal Medicine; Visit Provider Hospitalist
DX: Z13.89 Encounter for screening for other disorder (principal)
CPT/HCPCS: 73110; 73130

== ENCOUNTER 2021-03-25 10:42 | Outpatient (REF) | payer OTHER, SELFPAY ==
--- NOTE | ~2021-03-25 | MM_ITS ---
EXAMINATION: MM SCREENING DIGITAL BREAST TOMOSYNTHESIS, BILATERAL CLINICAL INFORMATION: Screening. Asymptomatic. The lifetime risk of breast cancer based on the Tyrer-Cuzick Model is 4%. COMPARISON: Mammography: 03/19/2020, 11/26/2018, 07/25/2017, 11/14/2016; left breast ultrasound 07/25/2017, 11/14/2016 TECHNIQUE: Digital breast tomosynthesis is performed in both the craniocaudal and mediolateral oblique views along with computer-aided detection (CAD). Synthesized 2D images are generated from the tomosynthesis. Additional right CC view is provided. FINDINGS: There are scattered areas of fibroglandular density (ACR BI-RADS breast composition Category b). There are no significant masses, abnormal calcifications, or other abnormalities. No developing density. The axilla and skin contours are unremarkable. No significant changes. MM/MM tomosynthesis screening BI IMPRESSION: No mammographic evidence of malignancy. ASSESSMENT: BI-RADS 1: Negative RECOMMENDATION: Routine annual mammography screening. This patient's information was entered into a reminder system with a target due date for their next mammogram.
== END 2021-03-25 10:43 | disposition home or self-care (01) ==
LOC: HO.MAMMO 10:42
PROVIDERS: PCP Internal Medicine; Visit Provider Internal Medicine
DX: Z12.31 Encounter for screening mammogram for malignant neoplasm of breast (principal)
CPT/HCPCS: 77063; 77067

== ENCOUNTER 2021-04-09 10:00 | Outpatient (RCR) | payer OTHER, SELFPAY ==
--- NOTE | 2021-03-29 12:39 | MHC.PT.EP ---
[facility] [place] [facility] [place] Office [place] Office [address] [place] [address] [phone] F: [phone] F: [phone] F: [phone] F: [phone] Physical Therapy Plan of Care Date of Evaluation: Date of Surgery: n/a Diagnosis: CVA Assessment: Patient is a 60 year old female presenting to PT s/p CVA estimated February 2020. She presents today with impairments in balance, LE strength, and safety. Pt's current occupation is none, with baseline physical activities including transfers, ambulation, ADLs, and stair negotiation. Pt expresses assisted goal of improving ability to ambulate, and is motivated to work towards this in PT. Clinical presentation today is most consistent with signs and sx associated with s/p CVA and pt will benefit from skilled PT to address the following problems and impairments noted upon evaluation: balance, LE strength, and safety. These problems limit the patient with the following functional activities: transfers, ambulation, ADLs, stair negotiation. The prescribed treatment plan of care is medically necessary. Co-morbidities of cva, HTN, T2DM, asthma, anemia were identified and taken into considerations of plan of care. Pt was educated on HEP, role of PT, prognosis, POC, use of cane for all functional mobility for improved safety. Frequency and Duration: The patient will be seen 2x week x 4 weeks Short Term Goals: Pt will demonstrate proper compliance with quad cane as evidence by using it for all functional mobility both at home and in the community in 2 weeks. Pt will demonstrate improved RLE strength by 1/3 MMT for improved ability to negotiate stairs in 2 weeks. 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 Orthoptist Goals: Pt will demonstrate improved LEFI score to 21/80 for improved tolerance to functional activity in 4 weeks. Pt will demonstrate ability to transfer from supine to sit with no assist to improve independence at home with transfers in 4 weeks. Pt will demonstrate ability to negotiate stairs with quad cane and good mechanics/sequencing in 4 weeks to improve safety with accessing her bedroom in 4 weeks. Treatment Plan: Modalities to reduce pain, spasms and effusion. Manual therapy to restore motion and function. Therapeutic exercise to improve strength and flexibility. Neuromuscular re-education for posture and balance. Therapeutic activities to return to functional activities of daily living. Electronically signed by: Jessi Vines, PT, DPT, ATC Please sign and return to therapist. Thank you for your referral.
--- NOTE | 2021-04-15 15:23 | MHC.PT.DC ---
[facility] [place] Office [place] Office [place] Office [address] [place] [address] [phone] F: [phone] F: [phone] F: [phone] F: [phone] Physical Therapy Discharge Report Diagnosis: CVA Date of Surgery: n/a Date of Evaluation: 03/30/21 Date of Discharge: 04/15/21 Treatments to Date: 2 Cancellations to Date: 2 No Shows to Date: 2 Discharge Status: Recommend MD Follow-up Discharge Summary: Pt has not yet been able to participate in any treatment sessions since eval secondary to high uncontrolled BP. Pt was sent to ED by PT at last session secondary to continued high readings. At this time it is not safe to continue skilled PT until her BP is more stable/controlled. Advised both pt and her daughter that she should return to MD for clearance prior to participating in skilled PT with good verbal understanding demonstrated. Electronically signed by: Jessi Vines, PT, DPT, ATC Please sign and return to therapist. Thank you for your referral.
== END 2021-04-15 15:23 | disposition home or self-care (01) ==
LOC: HO.PT 10:00
PROVIDERS: PCP Internal Medicine; Visit Provider Internal Medicine
DX: I63.9 Cerebral infarction, unspecified (principal)
CPT/HCPCS: 97162; 97535

== ENCOUNTER 2021-04-09 10:43 | Emergency (ER) | payer OTHER, SELFPAY ==
[2021-04-09] VITALS (7 sets, daily range): BP systolic 156–211; BP diastolic 64–84; PULSE 61–76; RESP 15–18; TEMP 36.1; O2SAT 94–99; BMI 22.7
--- NOTE | ~2021-04-09 | CT_ITS ---
EXAMINATION: CT HEAD WITHOUT CONTRAST CLINICAL INFORMATION: Hypertensive headache COMPARISON: Previous head CT most recent June 2018 TECHNIQUE: Contiguous axial imaging was performed from the skull base to vertex without intravenous administration of contrast. This CT examination was performed using dose optimization techniques as appropriate, variously including the following: *Automated exposure control *Adjustment of mA and/or kV according to patient size (this includes techniques or standardized protocols for targeted exams where dose is matched to indication/reason for exam; i.e. extremities or head) *Use of iterative reconstruction technique DLP: 510 mGy-cm FINDINGS: There is no evidence of an extra-axial collection. There is no evidence of intra-axial or extra-axial hemorrhage. The ventricles and extra-axial CSF spaces are appropriate. Urias-white matter differentiation is normal. There are old lateral basal ganglia and thalamic lacunar infarcts. No mass, mass effect or acute infarct is seen. No skull fracture or bone lesion is seen. There are inflammatory changes in the right maxillary, left anterior ethmoid and left frontal sinuses. Mastoid air cells and middle ears are clear. There are surgical clips adjacent to both temporal bones. CT/CT head/brain wo con IMPRESSION: No acute findings. Old bilateral basal ganglia and thalamic lacunar infarcts. Sinus disease.
--- NOTE | 2021-04-09 11:23 | ECG_ITS ---
Test Reason : HYPERTENSSION Blood Pressure : / mmHG Vent. Rate : 070 BPM Atrial Rate : 070 BPM P-R Int : 152 ms QRS Dur : 062 ms QT Int : 414 ms P-R-T Axes : 152 -26 152 degrees QTc Int : 447 ms Unusual P axis, possible ectopic atrial rhythm ST & T wave abnormality, consider lateral ischemia Abnormal ECG When compared with ECG of 13-FEB-2019 11:44, Ectopic atrial rhythm has replaced Sinus rhythm Inverted T waves have replaced nonspecific T wave abnormality in Lateral leads Referred By: Gerhard Rodriguez Electronically Signed By:
[2021-04-09] MEDS: cloNIDine HCL 0.2 MG TABLET PO (11:30)
[2021-04-09 11:42] LABS: MANUAL DIFF FLAG NO
--- NOTE | 2021-04-09 11:44 | ED.GENADULT ---
HPI - General Adult General Chief complaint: Headache Stated complaint: HBP Time Seen by Provider: 04/09/21 10:51 Source: patient Mode of arrival: ambulatory Limitations: no limitations History of Present Illness HPI narrative: Patient presents to ED for headache due to elevated blood pressure. Patient states she was at physical therapy and blood pressure was over 200. States patient's blood pressure has been elevated and PCP are trying to control her blood pressure. Patient states his PCP recently put her on lisinopril only for blood pressure. Patient denies any slurred speech, facial droop, presence of extremities, nausea, vomiting, chest pain, abdominal pain, or loss of vision. Related Data Home Medications Medication Instructions Recorded Confirmed albuterol sulfate 90 mcg/actuation 1 inh INHALATION QID 04/28/20 12/23/20 aerosol inhaler blood sugar diagnostic (FreeStyle #10 ea 04/28/20 12/23/20 Lite Strips) fludrocortisone 0.1 mg tablet 0.05 mg PO DAILY 04/28/20 12/23/20 lancets 28 gauge (FreeStyle #100 ea 04/28/20 12/23/20 Lancets) risperidone 1 mg tablet 1 mg PO BEDTIME 04/28/20 12/23/20 sertraline 100 mg tablet 200 mg PO DAILY tab 04/28/20 12/23/20 Previous Rx's Medication Instructions Recorded acarbose 100 mg tablet 100 mg PO TID 30 Days #90 tab 08/31/20 metformin 500 mg tablet 500 mg PO DAILY 30 Days #30 tab 08/31/20 aspirin 81 mg tablet,delayed 81 mg PO DAILY #90 tab 11/12/20 release atorvastatin 40 mg tablet 40 mg PO DAILY #90 tab 11/12/20 cholecalciferol (vitamin D3) 50 50 mcg PO DAILY 30 Days #30 cap 11/16/20 mcg (2,000 unit) capsule bisacodyl 5 mg tablet,delayed 20 mg PO ONCE 1 Days #4 tab 01/22/21 release (Dulcolax (bisacodyl)) polyethylene glycol 3350 17 238 g PO ONCE #238 g 01/22/21 gram/dose oral powder (Miralax) insulin glargine 100 unit/mL (3 5 unit SUBCUT QPM #15 ml 02/24/21 mL) subcutaneous pen (Lantus Solostar U-100 Insulin) pen needle, diabetic 31 gauge x #100 ea 02/24/21 3/16 (Comfort EZ Pen [place]) ursodiol 250 mg tablet 250 mg PO TID #270 tab 03/04/21 acetaminophen 500 mg tablet 500 mg PO Q6H PRN #20 tab 03/16/21 (Tylenol Extra Strength) cefuroxime axetil 250 mg tablet 250 mg PO BID 7 Days #14 tab 03/16/21 lidocaine 5 % topical patch 1 patch TOPICAL DAILY PRN #30 ea 03/16/21 (Lidoderm) MDD remove after 12 hours tramadol 50 mg tablet 50 mg PO BID 4 Days #8 tab 03/18/21 prednisone 20 mg tablet 20 mg PO .COMPLEX #18 tab 03/19/21 lisinopril 5 mg tablet 5 mg PO DAILY 90 Days #90 tab 03/30/21 simethicone 180 mg capsule 180 mg PO BID #60 cap 03/30/21 Allergies Allergy/AdvReac Type Severity Reaction Status Date / Time Sulfa (Sulfonamide AdvReac Mild Stomach Verified 03/19/21 10:00 Antibiotics) Upset [SULFA (SULFONAMIDE ANTIBIOTICS)] Latex, Natural Rubber AdvReac Unknown Rash Verified 03/19/21 10:00 Morphine Sulfate AdvReac Unknown Abdominal Uncoded 05/20/20 11:12 Pain Review of Systems Review of Systems: Yes all other systems are reviewed and are negative Constitutional: Constitutional: Reports as per HPI, Reports no additional constitutional complaints and Reports headache(s) Eyes: Eyes: Reports as per HPI and Reports no additional eye complaints ENT: Reports system reviewed and no additional complaints, except as documented, Reports as per HPI and Reports headache(s) Cardiovascular: Cardiovascular: Reports as per HPI and Reports no additional cardiovascular complaints Respiratory: Respiratory: Reports as per HPI and Reports no additional respiratory complaints Genitourinary: Genitourinary: Reports no additional female genitourinary complaints and Reports as per HPI Musculoskeletal: Musculoskeletal: Reports no additional musculoskeletal complaints and Reports as per HPI Neurologic: Reports system reviewed and no additional complaints, except as documented, Reports as per HPI and Reports headache(s) Psychiatric: Psychiatric: Reports no additional psychiatric complaints and Reports as per HPI PMFSH Past Medical History Medical History Asthma CVA (cerebral vascular accident) Diabetes type 2, uncontrolled Diabetic polyneuropathy associated with type 2 diabetes mellitus Diabetic retinopathy associated with type 2 diabetes mellitus Dyslipidemia Fatty liver disease, nonalcoholic GERD (gastroesophageal reflux disease) History of sleep apnea History of umbilical hernia HTN (hypertension) Hypertension Hypoglycemia after GI (gastrointestinal) surgery Postural hypotension Primary biliary cholangitis Sjogrens syndrome Subclinical hypothyroidism Surgical History History of carpal tunnel release History of esophagogastroduodenoscopy (EGD) History of laparoscopic appendectomy History of partial hysterectomy Hx of section Hx of colonoscopy Hx of dilation and curettage Hx of gastric bypass Hx of tonsillectomy Family History Family History Father [place] (myocardial infarction) Diabetes mellitus Mother Diabetes mellitus CVA (cerebral vascular accident) Maternal Grandmother Stomach cancer Sister Hemorrhagic cerebrovascular accident (CVA) Social History Social History Household Members: Spouse Housing: Apartment Alcohol intake: unknown Patient Tobacco Use Status: Never used Tobacco e-Cigarette/Vaping Use: Never Used Second Hand Smoke Exposure: No Use of substances other than those prescribed or required for medical reasons: Unknown Advance Directives: No Advance Directives Date on File: 08/11/18 service: No Current occupational status: retired and disabled Physical Exam Vital Signs: Vital Signs: Last Vital Signs Temp 97.0 F 04/09/21 10:45 Pulse 63 04/09/21 16:14 Resp 18 04/09/21 16:14 BP 176/64 H 04/09/21 16:14 Pulse Ox 95 04/09/21 16:14 Body Mass Index 22.7 Const: General: cooperative, healthy appearing, comfortable, no acute distress, well developed, alert, awake and Physically active Orientation/consciousness: patient oriented x3 HENMT: Head: Yes normal to inspection, Yes No palpable skull fracture present, Yes normocephalic and Yes atraumatic Eyes: General: appearance normal, both eyes and all related structures Neck: Neck: Yes normal visual inspection, Yes full ROM, Yes no lymphadenopathy, Yes no meningeal signs, Yes trachea midline, Yes supple and No tender Chest: Chest palpation & inspection: normal inspection of the chest and normal palpation of entire chest wall Resp: Effort & Inspection: normal respiratory effort and able to speak in complete sentences Auscultation: clear to auscultation bilaterally GI: Inspection: Yes normal to inspection and No abdominal wall ecchymosis Palpation (GI): Soft to palpation, not firm, nontender, no guarding and not rigid : General: No CVA tenderness and Yes no CVA tenderness Back/Spine/Pelvis: Back: no CVA tenderness, No CVA tenderness and No back tenderness Skin: General skin exam: no rashes or lesions noted and elasticity normal Neuro: Other: Is slurred speech. Negative facial droops. Negative pronator drift. [id number]-[id number] rapid hand movement intact. Negative Romberg General: patient oriented x3, gait normal, no meningeal signs and CN's II-XI intact bilaterally Cranial nerves: Yes CN's II-XII intact bilaterally Extrem: General: Yes normal to inspection and Yes full ROM Psych: Appearance: grossly normal, well kempt and not disheveled Course Course Course Narrative: Negative for any neuro deficits. Presently hypertensive urgency. Will do medical evaluation and give hypertensive meds. Reevaluation(s) Reevaluation #1: Patient's blood pressure improved after clonidine. EKG negative STEMI. Troponins negative. Head CT scan normal. Patient's creatinine is normal. Patient is safe for discharge. NIH score 0 Time: 15:45 Medical Decision Making [facility] Narrative Medical decision making narrative: Hypertensive urgency resolved Lab Data Result diagrams: 04/09/21 11:33 04/09/21 11:33 Labs: Lab Results 04/09/21 04/09/21 04/09/21 Range/Units 11:33 11:33 11:33 WBC 5.0 (4.8-10.8) X10*3/uL RBC 4.36 (4.20-5.50) X10*6/uL Hgb 11.3 L (12.0-16.0) g/dl Hct 35.8 L (37-47) % MCV 82.1 (80-98) fL MCH 25.9 L (27.0-33.0) pg MCHC 31.6 (31.0-35.0) g/dl RDW 16.5 H (11.0-16.0) % Plt Count 218 (160-400) X10*3/uL MPV Not Reportable Immature Gran % (Auto) 0.6 H (0.0-0.4) % Neut % (Auto) 50.0 (45-73) % Lymph % (Auto) 34.9 (20-40) % [place] % (Auto) 9.9 (2-11) % Eos % (Auto) 4.0 (0-4) % Baso % (Auto) 0.6 (0-2) % Lymph # (Auto) 1.7 (1.2-4.9) X10*3/uL [place] # (Auto) 0.5 (0.1-1.2) X10*3/uL Eos # (Auto) 0.2 (0.0-0.4) X10*3/uL Baso # (Auto) 0.0 (0.0-0.2) X10*3/uL Abs Immat Gran (auto) 0.03 (0.00-0.03) X10*3/uL Absolute Neuts (auto) 2.5 (2.0-8.3) X10*3/uL Absolute Nucleated RBC 0.000 (0.0-0.012) X10*3/uL Nucleated RBC % (auto) 0.0 (0.0-0.2) /100WBC Sodium 143 (135-145) mmol/L Potassium 3.9 D (3.3-5.1) mmol/L Chloride 108 (96-108) mmol/L Carbon Dioxide 28 (22-29) mmol/L Anion Gap 11 L (12-20) BUN 21 H D (9-16) mg/dL Creatinine 0.73 (0.5-1.4) mg/dL Estim Creat Clear Calc 53.2 Estimated GFR > 60 Random Glucose 135 H (60-115) mg/dL Calcium 9.0 D (8.4-10.2) mg/dL Total Bilirubin 0.5 (0.0-1.0) mg/dL AST 115 H (5-31) U/L ALT 83 H (0-31) U/L Alkaline Phosphatase 389 H D (39-117) U/L Troponin I High Sens 6.5 (<3.5-17.0) ng/L Total Protein 7.1 (6.5-8.0) g/dL Albumin 3.4 L (3.5-5.0) g/dL 10/01/21 Range/Units 14:59 WBC (4.8-10.8) X10*3/uL RBC (4.20-5.50) X10*6/uL Hgb (12.0-16.0) g/dl Hct (37-47) % MCV (80-98) fL MCH (27.0-33.0) pg MCHC (31.0-35.0) g/dl RDW (11.0-16.0) % Plt Count (160-400) X10*3/uL MPV Immature Gran % (Auto) (0.0-0.4) % Neut % (Auto) (45-73) % Lymph % (Auto) (20-40) % [place] % (Auto) (2-11) % Eos % (Auto) (0-4) % Baso % (Auto) (0-2) % Lymph # (Auto) (1.2-4.9) X10*3/uL [place] # (Auto) (0.1-1.2) X10*3/uL Eos # (Auto) (0.0-0.4) X10*3/uL Baso # (Auto) (0.0-0.2) X10*3/uL Abs Immat Gran (auto) (0.00-0.03) X10*3/uL Absolute Neuts (auto) (2.0-8.3) X10*3/uL Absolute Nucleated RBC (0.0-0.012) X10*3/uL Nucleated RBC % (auto) (0.0-0.2) /100WBC Sodium (135-145) mmol/L Potassium (3.3-5.1) mmol/L Chloride (96-108) mmol/L Carbon Dioxide (22-29) mmol/L Anion Gap (12-20) BUN (9-16) mg/dL Creatinine (0.5-1.4) mg/dL Estim Creat Clear Calc Estimated GFR Random Glucose (60-115) mg/dL Calcium (8.4-10.2) mg/dL Total Bilirubin (0.0-1.0) mg/dL AST (5-31) U/L ALT (0-31) U/L Alkaline Phosphatase (39-117) U/L Troponin I High Sens 8.9 (<3.5-17.0) ng/L Total Protein (6.5-8.0) g/dL Albumin (3.5-5.0) g/dL ECG Data Interpretation: , sinus rhythm. Ventricular rate 70. Pr interval 186. QRS any. QTC 453. Negative STEMI Discharge Plan Discharge Clinical Impression: Hypertension, Headache Patient Disposition: Home, Self-Care Instructions: Hypertension (ED) Additional Instructions: Sheets dolor de eden se jackie? a la hipertensi?n. Sheets an?lisis de marco result? negativo por ataque card?aco o disfunci?n renal. EKG no mostr? anais?n cambio nuevo. Sheets tomograf?a computarizada de la eden result? negativa para cualquier hemorragia cerebral o accidente cerebrovascular. Neda un seguimiento con sheets proveedor de atenci?n primaria para detectar posibles dosis crecientes de lisinopril o agregar un nuevo medicamento para controlar la presi?n arterial linda. Regrese al servicio de urgencias de inmediato si tiene dolor de pecho, dificultad para respirar, dificultad para hablar, declive facial, par?lisis de las extremidades, dificultad para hablar, p?rdida de la visi?n o cualquier otro s?ntoma que le preocupe. Prescriptions: No Action cholecalciferol (vitamin D3) 50 mcg (2,000 unit) capsule 50 mcg PO DAILY 30 Days Qty: 30 RF: 11 ursodiol 250 mg tablet 250 mg PO TID Qty: 270 RF: 1 tramadol 50 mg tablet 50 mg PO BID 4 Days Qty: 8 RF: 0 lisinopril 5 mg tablet 5 mg PO DAILY 90 Days Qty: 90 RF: 0 simethicone 180 mg capsule 180 mg PO BID Qty: 60 RF: 1 cefuroxime axetil 250 mg tablet 250 mg PO BID 7 Days Qty: 14 RF: 0 acetaminophen [Tylenol Extra Strength] 500 mg tablet 500 mg PO Q6H PRN (Reason: pain or fever) Qty: 20 RF: 0 lidocaine [Lidoderm] 5 % adhesive patch,medicated 1 patch topical DAILY MDD remove after 12 hours PRN (Reason: pain) Qty: 30 RF: 0 aspirin 81 mg tablet,delayed release (DR/EC) 81 mg PO DAILY Qty: 90 RF: 3 atorvastatin 40 mg tablet 40 mg PO DAILY Qty: 90 RF: 3 Lantus Solostar U-100 Insulin 100 unit/mL (3 mL) insulin pen 5 unit subcut QPM Qty: 15 RF: 4 (DME) pen needle, diabetic [Comfort EZ Pen Jefferson] 31 gauge x 3/16 needle See Rx Instructions .Route Qty: 100 RF: 3 prednisone 20 mg tablet 20 mg PO .COMPLEX Qty: 18 RF: 0 polyethylene glycol 3350 [Miralax] 17 gram/dose powder 238 g PO ONCE Qty: 238 RF: 0 bisacodyl [Dulcolax (bisacodyl)] 5 mg tablet,delayed release (DR/EC) 20 mg PO ONCE 1 Days Qty: 4 RF: 0 fludrocortisone 0.1 mg tablet 0.05 mg PO DAILY RF: 0 sertraline 100 mg tablet 200 mg PO DAILY RF: 0 albuterol sulfate 90 mcg/actuation HFA aerosol inhaler 1 inh inhalation QID RF: 0 risperidone 1 mg tablet 1 mg PO BEDTIME RF: 0 (DME) FreeStyle Lite Strips Strip See Rx Instructions .ROUTE .MEDSUPPLY Qty: 10 RF: 0 (DME) lancets [FreeStyle Lancets] 28 gauge misc See Rx Instructions .ROUTE .MEDSUPPLY Qty: 100 RF: 0 metformin 500 mg tablet 500 mg PO DAILY 30 Days Qty: 30 RF: 6 acarbose 100 mg tablet 100 mg PO TID 30 Days Qty: 90 RF: 6 Referrals: Po,Ludy Minaya MD [Primary Care Provider] - 2 days (Hypertension) Interventions: ED Discharge Assessment Last Done: 04/09/21 16:17 Discharge Date/Time: 04/09/21 16:18 Print Language: Cook Islander
[2021-04-09 11:49] LABS: Basophils Percent Auto 0.6 % (0-2); Eosinophils Absolute Auto 0.2 X10*3/uL (0.0-0.4); Hematocrit 35.8 % (37-47); Hemoglobin 11.3 g/dl (12.0-16.0); Imm Gran Abs Auto 0.03 X10*3/uL (0.00-0.03); Imm Gran Pct Auto 0.6 % (0.0-0.4); Lymphocytes Absolute Auto 1.7 X10*3/uL (1.2-4.9); Lymphocytes Percent Auto 34.9 % (20-40); Mean Corpuscular HGB Conc 31.6 g/dl (31.0-35.0); Mean Corpuscular Hemoglobin 25.9 pg (27.0-33.0); Mean Corpuscular Volume 82.1 fL (80-98); Monocytes Absolute Auto 0.5 X10*3/uL (0.1-1.2); Monocytes Percent Auto 9.9 % (2-11); Neutrophils Absolute Auto 2.5 X10*3/uL (2.0-8.3); Platelet Count 218 X10*3/uL (160-400); Red Blood Count 4.36 X10*6/uL (4.20-5.50); Red Cell Distribution Width 16.5 % (11.0-16.0)
[2021-04-09 12:08] LABS: Troponin-I High Sensitivity 6.5 ng/L (<3.5-17.0)
[2021-04-09 12:09] LABS: Alanine Aminotransferase 83 U/L (0-31); Albumin Level 3.4 g/dL (3.5-5.0); Alkaline Phosphatase 389 U/L (39-117); Anion Gap 11 (12-20); Aspartate Amino Transferase 115 U/L (5-31); Bilirubin Total 0.5 mg/dL (0.0-1.0); Blood Urea Nitrogen 21 mg/dL (9-16); Carbon Dioxide 28 mmol/L (22-29); Chloride 108 mmol/L (96-108); Creatinine Clr Calc Pharmacy 53.2; Estimated Glomerular Filt Rate > 60; Glucose Random 135 mg/dL (60-115); Potassium 3.9 mmol/L (3.3-5.1); Sodium 143 mmol/L (135-145); Total Protein 7.1 g/dL (6.5-8.0)
[2021-04-09 15:26] LABS: Troponin-I High Sensitivity 8.9 ng/L (<3.5-17.0)
== END 2021-04-09 16:18 | disposition home or self-care (01) ==
PROVIDERS: Physician Assistant; Emergency Provider Emergency Medicine; PCP Internal Medicine
DX: R51.9 Headache, unspecified (principal); I10 Essential (primary) hypertension; Z79.899 Other long term (current) drug therapy
CPT/HCPCS: 36415; 70450; 80053; 84484; 85025; 93005; 99285

== ENCOUNTER 2021-05-20 11:13 | Day surgery (SDC) | payer OTHER, SELFPAY ==
--- NOTE | 2021-03-11 13:25 | HO.ANESPROP2 ---
HPI - Anesthesia Eval Consult details Narrative: 60yo F for Upper Endoscopy and Colonoscopy Stable routine cardiac visit 10/2020 with 6 month f/u s/p gastric bypass PMFSH Active Problems Active Problems: All Active Problems (Updated 02/24/21 @ 11:48 by Ludy Alonso MD) Tubular adenoma of colon (Acute) Anemia (Acute) Coronary artery disease (Acute) Type 2 diabetes mellitus with hyperglycemia (Acute) Lumbar spinal stenosis (Acute) Obstructive sleep apnea (Acute) Hypokalemia (Acute) Hx of gastric bypass (Acute) CVA (cerebral vascular accident) (Acute) Primary biliary cholangitis (Acute) Fatty liver disease, nonalcoholic (Acute) Postural hypotension (Acute) Sjogrens syndrome (Acute) GERD (gastroesophageal reflux disease) (Acute) Asthma (Acute) Subclinical hypothyroidism (Acute) Hypertension (Acute) Dyslipidemia (Acute) Diabetic retinopathy associated with type 2 diabetes mellitus (Acute) Diabetic polyneuropathy associated with type 2 diabetes mellitus (Acute) Hypoglycemia after GI (gastrointestinal) surgery (Acute) Diabetes type 2, uncontrolled (Acute) Past Medical History Medical History (Updated 02/24/21 @ 11:48 by Ludy Alonso MD) Asthma CVA (cerebral vascular accident) Diabetes type 2, uncontrolled Diabetic polyneuropathy associated with type 2 diabetes mellitus Diabetic retinopathy associated with type 2 diabetes mellitus Dyslipidemia Fatty liver disease, nonalcoholic GERD (gastroesophageal reflux disease) History of sleep apnea History of umbilical hernia HTN (hypertension) Hypertension Hypoglycemia after GI (gastrointestinal) surgery Postural hypotension Primary biliary cholangitis Sjogrens syndrome Subclinical hypothyroidism Family History Family History Father ID (myocardial infarction) Diabetes mellitus Mother Diabetes mellitus CVA (cerebral vascular accident) Maternal Grandmother Stomach cancer Sister Hemorrhagic cerebrovascular accident (CVA) Family history of problems with anesthesia: No Surgical History Surgical History (Updated 03/11/21 @ 09:19 by Yolie Henning RN) History of carpal tunnel release History of esophagogastroduodenoscopy (EGD) History of laparoscopic appendectomy History of partial hysterectomy Hx of section Hx of colonoscopy Hx of dilation and curettage Hx of gastric bypass Hx of tonsillectomy History of Problems with Anesthesia: No Social History Social History Household Members: Spouse Housing: Apartment Alcohol intake: never Patient Tobacco Use Status: Never used Tobacco e-Cigarette/Vaping Use: Never Used Second Hand Smoke Exposure: No Advance Directives Date on File: 08/11/18 service: No Current occupational status: retired and disabled Meds Allergies Allergy/AdvReac Type Severity Reaction Status Date / Time Sulfa (Sulfonamide AdvReac Mild Stomach Verified 02/24/21 11:04 Antibiotics) Upset [SULFA (SULFONAMIDE ANTIBIOTICS)] Latex, Natural Rubber AdvReac Unknown Rash Verified 02/24/21 11:04 Morphine Sulfate AdvReac Unknown Abdominal Uncoded 05/20/20 11:12 Pain Home Medications Medication Instructions Recorded Confirmed Last Taken Type albuterol sulfate 90 mcg/actuation 1 inh INHALATION QID 04/28/20 12/23/20 Unknown History aerosol inhaler blood sugar diagnostic (FreeStyle #10 ea 04/28/20 12/23/20 Unknown History Lite Strips) fludrocortisone 0.1 mg tablet 0.05 mg PO DAILY 04/28/20 12/23/20 Unknown History lancets 28 gauge (FreeStyle #100 ea 04/28/20 12/23/20 Unknown History Lancets) midodrine 2.5 mg tablet 2.5 mg PO BID 04/28/20 12/23/20 12/31/20 08:00 History risperidone 1 mg tablet 1 mg PO BEDTIME 04/28/20 12/23/20 Unknown History sertraline 100 mg tablet 200 mg PO DAILY tab 04/28/20 12/23/20 12/31/20 08:00 History Exam Exam Date and Time: March 11, 2021 1325 Pertinent Lab Results Pertinent Lab Results: Laboratory Tests 01/22/21 01/22/21 10:04 10:04 WBC 4.1 L Hgb 11.1 L Hct 35.4 L Plt Count 195 D Sodium 143 Potassium 3.0 L D Chloride 100 Carbon Dioxide 36 H BUN 12 Creatinine 0.78 Narrative Narrative: Stress MIBI 03/2020 1. Myocardial imaging is normal without any fixed or reversible perfusion defect after Regadenoson infusion 2. LV function is normal at rest and after IV admin of Regadenoson with normal wall motion and thickening 3. EKG portion shows no ischemia Brain MRI 10/2020 (dizziness) 1. No evidence of retrocochlear lesion 2. Several small cystic foci are seen in the liana with surrounding T2 signal abn. Probably represents combo of chronic lacunar infarcts and chronic microvascular ischemic changes, though intermixed perivascular spaces may also be present 3. Lacunar infarcts are also seen in the bilateral thalami and perventricular white matter. Assessment and Plan Assessment Anesthesia Assessment: Chart Reviewed Final Anesthetic Review Family History of Problems with Anesthesia: No History of Problems with Anesthesia: No
[2021-05-13 14:47] VITALS: BMI 22.7
--- NOTE | 2021-05-20 11:51 | HO.ANESPROP2 ---
[facility] Active Problems Active Problems: All Active Problems (Updated 04/10/21 @ 00:02 by Chasity Gallagher) Strain of left wrist (Acute) Left wrist pain (Acute) Forearm pain (Acute) Tubular adenoma of colon (Acute) Anemia (Acute) Coronary artery disease (Acute) Type 2 diabetes mellitus with hyperglycemia (Acute) Lumbar spinal stenosis (Acute) Obstructive sleep apnea (Acute) Hypokalemia (Acute) Hx of gastric bypass (Acute) CVA (cerebral vascular accident) (Acute) Primary biliary cholangitis (Acute) Fatty liver disease, nonalcoholic (Acute) Postural hypotension (Acute) Sjogrens syndrome (Acute) GERD (gastroesophageal reflux disease) (Acute) Asthma (Acute) Subclinical hypothyroidism (Acute) Hypertension (Acute) Dyslipidemia (Acute) Diabetic retinopathy associated with type 2 diabetes mellitus (Acute) Diabetic polyneuropathy associated with type 2 diabetes mellitus (Acute) Hypoglycemia after GI (gastrointestinal) surgery (Acute) Diabetes type 2, uncontrolled (Acute) Past Medical History Medical History Asthma CVA (cerebral vascular accident) Diabetes type 2, uncontrolled Diabetic polyneuropathy associated with type 2 diabetes mellitus Diabetic retinopathy associated with type 2 diabetes mellitus Dyslipidemia Fatty liver disease, nonalcoholic GERD (gastroesophageal reflux disease) History of sleep apnea History of umbilical hernia HTN (hypertension) Hypertension Hypoglycemia after GI (gastrointestinal) surgery Postural hypotension Primary biliary cholangitis Sjogrens syndrome Subclinical hypothyroidism Functional capacity: independent ambulation Patient : No Family History Family History Father [place] (myocardial infarction) Diabetes mellitus Mother Diabetes mellitus CVA (cerebral vascular accident) Maternal Grandmother Stomach cancer Sister Hemorrhagic cerebrovascular accident (CVA) Family history of problems with anesthesia: No Surgical History Surgical History History of carpal tunnel release History of esophagogastroduodenoscopy (EGD) History of laparoscopic appendectomy History of partial hysterectomy Hx of section Hx of colonoscopy Hx of dilation and curettage Hx of gastric bypass Hx of tonsillectomy History of Problems with Anesthesia: No Social History Social History Household Members: Spouse Housing: Apartment Alcohol intake: unknown Patient Tobacco Use Status: Never used Tobacco e-Cigarette/Vaping Use: Never Used Second Hand Smoke Exposure: No Use of substances other than those prescribed or required for medical reasons: No Are you DNR?: No Advance Directives: Yes Advance Directives Information Provided: No Advance Directives on File: Yes Advance Directives Date on File: 07/10/99 service: No Current occupational status: retired and disabled Meds Allergies Allergy/AdvReac Type Severity Reaction Status Date / Time Latex, Natural Rubber Allergy Intermediate Rash Verified 05/20/21 11:25 Sulfa (Sulfonamide AdvReac Intermediate Stomach Verified 05/20/21 11:25 Antibiotics) Upset [SULFA (SULFONAMIDE ANTIBIOTICS)] Morphine Sulfate AdvReac Intermediate Abdominal Uncoded 05/13/21 14:46 Pain Home Medications Medication Instructions Recorded Confirmed Last Taken Type albuterol sulfate 90 mcg/actuation 1 inh INHALATION QID PRN 04/28/20 05/13/21 Unknown History aerosol inhaler blood sugar diagnostic (FreeStyle #10 ea 04/28/20 12/23/20 Unknown History Lite Strips) fludrocortisone 0.1 mg tablet 0.05 mg PO DAILY 04/28/20 05/13/21 Unknown History lancets 28 gauge (FreeStyle #100 ea 04/28/20 12/23/20 Unknown History Lancets) sertraline 100 mg tablet 200 mg PO DAILY tab 04/28/20 05/13/21 12/31/20 08:00 History tramadol 50 mg tablet 50 mg PO BID PRN 05/13/21 05/13/21 Unknown History Exam Exam Date and Time: May 20, 2021 1151 Height,Weight and Vital Signs: Height 4 ft 9 in Weight 47.627 kg Airway Mallampati Class: I TM Dist: >3cm Neck ROM: Full Denture: Upper and Lower Heart: RRR Lungs: CTA Assessment and Plan Final Anesthetic Review Family History of Problems with Anesthesia: No History of Problems with Anesthesia: No ASA Class: III Final Preanesthetic Review: No Changes in Pt Med Stat Patient Risk: Intermediate Procedure Risk: Low Anesthetic Plan Anesthetic Plan: MAC: Disposition: Standard PACU
[2021-05-20 12:00] VITALS: BP 176/83; PULSE 71; RESP 16; TEMP 36.3; O2SAT 99
[2021-05-20] MEDS: Dextrose 5 % 50 ML 100 ML IV (12:00)
[2021-05-20 12:09] LABS: Glucose, Whole Blood 66 mg/dL (60-115)
[2021-05-20] MEDS: Lactated Ringers 1,000 ML 50 ML IVCONT (12:12)
--- NOTE | 2021-05-20 12:32 | MHC.SHP ---
Pre-Procedural Eval Section A Date of Service: 05/20/21 Section B Chief Complaint: tubular adenoma Relevant Family History (Specify if Yes): No Relevant Social History: None Present Medications: see Short Stay Collaborative assessment Medical History: Significant History (Asthma CVA (cerebral vascular accident) Diabetes type 2, uncontrolled Diabetic polyneuropathy associated with type 2 diabetes mellitus Diabetic retinopathy associated with type 2 diabetes mellitus Dyslipidemia Fatty liver disease, nonalcoholic GERD (gastroesophageal reflux disease) History of sleep ) History of Previous Operations: Relevant previous surgery/procedure and date(s) (History of carpal tunnel release History of esophagogastroduodenoscopy (EGD) History of laparoscopic appendectomy History of partial hysterectomy Hx of section Hx of colonoscopy Hx of dilation and curettage Hx of gastric bypass Hx of tonsillectomy) Allergies: Allergies Allergy/AdvReac Type Severity Reaction Status Date / Time Latex, Natural Rubber Allergy Intermediate Rash Verified 05/20/21 11:25 Sulfa (Sulfonamide AdvReac Intermediate Stomach Verified 05/20/21 11:25 Antibiotics) Upset [SULFA (SULFONAMIDE ANTIBIOTICS)] Morphine Sulfate AdvReac Intermediate Abdominal Uncoded 05/13/21 14:46 Pain Review of Systems Sugical H&P ROS: Negative: Constitution, Cardiovascular, Respiratory, Neurological, Psychiatric, Hem-Onc, Allergic/Immunologic, Gastrointestinal, Genitourinary, Musculoskeletal, Integumentary, Endocrine and Eyes/Ears/Nose/Throat Exam Surgical H&P Exam: Normal: HEENT, Normal: Heart, Normal: Lungs, Normal: Extremities, Normal: Abdomen, Normal: Skin and Normal: Neurological Plan I have reviewed the history and physical and performed a pertinent physical examination on my patient. No changes have occurred unless specified. Plan was for EGD as well for suture removal but no endo scissors so just colonoscopy.
--- NOTE | 2021-05-20 12:33 | P.BOP_ITS ---
Brief Operative Note Date of Service: 05/20/21 Pre-op diagnosis: hx of polyps Post-op diagnosis: same Procedure: see op note Surgeon: Luis Lucas MD Anesthesia: MAC Was an [employer] used for this Procedure?: No Estimated blood loss (mL): 0 Condition: stable Disposition: PACU
--- NOTE | 2021-05-20 12:33 | W.PM.OPN ---
Operative Note Operative Note Date of Service: 05/20/21 Narrative: Operative Information Procedure Description: Colonoscopy COLONOSCOPY Instrument: Olympus variable stiffness pediatric scope 190L Colonoscopy Monitoring: Vital signs and clinical assessment, continuous EKG monitoring, Pulse oximetry, Carbon Dioxide monitoring and blood pressure monitoring were done throughout the procedure. Colon withdrawal time was 20 minutes. Procedure: The patient was placed in the left lateral decubitis position and pre-procedure medications were administered. After a digital rectal examination of the ano-rectum, the video colonoscope was inserted into the rectum and advanced through the colon to the cecum/TI. The colonoscope was slowly withdrawn in a retrograde panoramic fashion and the colon mucosa was carefully examined including a retroflexed view of the rectum. Findings and interventions are described below. Procedure Difficulty: easy Findings: Terminal Ileum-normal Cecum:normal Ascending Colon: normal Transverse Colon - 8-10 mm sessile polyp removed with forceps Descending Colon: 14-15 mm sessile polyp removed with cold snare Sigmoid Colon: normal, poor views due to prep Rectum: Retroflexion with moderate sized internal hemorrhoids, grade I Anorectum - normal Colon preparation: [place] Bowel Preparation Scale Right colon; 2 Transverse colon: 1 Left colon; 0 (0 = Unprepared colon segment with mucosa not seen due to solid stool that cannot be cleared. 1 = Portion of mucosa of the colon segment seen, but other areas of the colon segment not well seen due to staining, residual stool and/or opaque liquid. 2 = Minor amount of residual staining, small fragments of stool and/or opaque liquid, but mucosa of colon segment seen well. 3 = Entire mucosa of colon segment seen well with no residual staining, small fragments of stool or opaque liquid) Impression and Post Procedure Diagnosis: poor prep polyps internal hemorrhoids Plan: High fiber diet leaflet Avoid straining at stool, epsom salts and sitz bath, anusol supps or cream Repeat Colonoscopy in 6-12 months or earlier if clinically indicated review prep again with patient Above findings were reviewed with the patient and relevant handouts were provided if indicated.
[2021-05-20 13:12] VITALS: BP 144/67; PULSE 71; RESP 16; TEMP 36.1; O2SAT 98
[2021-05-20 13:27] VITALS: BP 174/73; PULSE 76; RESP 16; TEMP 36.1; O2SAT 99
--- NOTE | 2021-05-20 14:03 | HO.POSTANES ---
Post Anesthesia Evaluation Post Anesthesia Evaluation Vital Signs: Vital Signs Temp Pulse Resp BP Pulse Ox 05/20/21 13:27 97.0 F 76 16 174/73 H 99 05/20/21 13:12 97.0 F 71 16 144/67 H 98 05/20/21 12:00 97.4 F 71 16 176/83 H 99 Anesthesia: Monitored Mental Status: Awake Pain Control: Satisfactory Nausea/Vomiting: None Hydration: Adequate Anesthesia-Related Issues: No Anes. Related Issues
--- NOTE | 2021-05-20 14:04 | HO.POSTANES ---
Post Anesthesia Evaluation Post Anesthesia Evaluation Vital Signs: Vital Signs Temp Pulse Resp BP Pulse Ox 05/20/21 13:27 97.0 F 76 16 174/73 H 99 05/20/21 13:12 97.0 F 71 16 144/67 H 98 05/20/21 12:00 97.4 F 71 16 176/83 H 99 Anesthesia: Monitored Mental Status: Awake Pain Control: Satisfactory Hydration: Adequate Anesthesia-Related Issues: No Anes. Related Issues
== END 2021-05-20 14:16 | disposition home or self-care (01) ==
PROVIDERS: Visit Provider Internal Medicine Gastroenterology
PROC: (CPT 45385; principal; 2021-05-20 12:40)
DX: Z12.11 Encounter for screening for malignant neoplasm of colon (principal); D12.3 Benign neoplasm of transverse colon; D12.4 Benign neoplasm of descending colon; K64.0 First degree hemorrhoids; K74.3 Primary biliary cirrhosis; I10 Essential (primary) hypertension; I25.10 Atherosclerotic heart disease of native coronary artery without angina pectoris; M35.00 Sjogren syndrome, unspecified; G47.33 Obstructive sleep apnea (adult) (pediatric); J45.20 Mild intermittent asthma, uncomplicated; E11.65 Type 2 diabetes mellitus with hyperglycemia; E11.42 Type 2 diabetes mellitus with diabetic polyneuropathy; E11.319 Type 2 diabetes mellitus with unspecified diabetic retinopathy without macular edema; Z79.4 Long term (current) use of insulin; Z79.899 Other long term (current) drug therapy; Z99.89 Dependence on other enabling machines and devices; Z98.84 Bariatric surgery status; Z86.73 Personal history of transient ischemic attack (TIA), and cerebral infarction without residual deficits; Z88.2 Allergy status to sulfonamides; Z88.8 Allergy status to other drugs, medicaments and biological substances; Z91.040 Latex allergy status
CPT/HCPCS: 45385; 45380; 82947; 88305

== ENCOUNTER → 2021-06-01 11:11 | Outpatient (BNVA) | payer OTHER, SELFPAY | PROVIDERS: PCP Internal Medicine; Visit Provider Internal Medicine Gastroenterology ==

== ENCOUNTER → 2021-06-07 08:11 | Outpatient (BNVA) | payer OTHER, SELFPAY | PROVIDERS: PCP Internal Medicine; Visit Provider Physician Assistant ==

== ENCOUNTER 2021-06-18 15:21 | Outpatient (REF) | payer OTHER, SELFPAY ==
[2021-06-18 16:26] LABS: Appearance Urine HAZY; Color Urine YELLOW; Glucose Urine UA NEG (NEG); Leukocyte Esterase Urine 1+ (NEG); Nitrite Urine NEG (NEG); Specific Gravity - Urine 1.025 (1.005-1.025); UACC Culture Trigger YES; Urine Blood NEG (NEG); Urine Ketones NEG (NEG); Urine Protein NEG (NEG-TRACE)
[2021-06-18 16:34] LABS: Bacteria Urine 1+ /LPF; Mucus Urine 1+ /LPF; RBC Urine 0-2 /HPF (0); Renal Epithelial Cells Urine TRACE /LPF; Squamous Epithelial Cell Urine 1+ /LPF
== END 2021-06-18 15:22 | disposition home or self-care (01) ==
LOC: HO.LAB 15:21
PROVIDERS: Visit Provider Internal Medicine
DX: R30.0 Dysuria (principal)
CPT/HCPCS: 81001; 87086; 87088; 87186

== ENCOUNTER → 2021-06-24 08:09 | Outpatient (BNVA) | payer OTHER, SELFPAY | PROVIDERS: PCP Internal Medicine; Visit Provider Dietitian, Registered | DX: I10 Essential (primary) hypertension (principal); Z98.84 Bariatric surgery status | CPT/HCPCS: 97803 ==

== ENCOUNTER 2021-07-15 12:34 | Outpatient (REF) | payer OTHER, SELFPAY | END 2021-07-15 12:35 | disposition home or self-care (01) | LOC: HO.MDS 12:34 | PROVIDERS: PCP Internal Medicine; Visit Provider Internal Medicine Medical Oncology | DX: D50.9 Iron deficiency anemia, unspecified (principal) | CPT/HCPCS: 96365; J2916 ==

== ENCOUNTER 2021-07-23 14:45 | Inpatient (IN) | payer OTHER, SELFPAY ==
[2021-07-23] VITALS (8 sets, daily range): BP systolic 164–223; BP diastolic 67–102; PULSE 61–70; RESP 15–20; TEMP 36.8; O2SAT 95–99; BMI 24.2
--- NOTE | ~2021-07-23 | XR_ITS ---
EXAMINATION: XR CHEST CLINICAL INFORMATION: Weakness COMPARISON: Chest 03/16/2021 TECHNIQUE: Frontal view of the chest was obtained. FINDINGS: The lungs are well-expanded without acute consolidation or pleural effusion. Heart size is normal. Mild prominence of perivascular is seen but no congestion suspected. No gross bony abnormality. XR/XR chest 1V IMPRESSION: Mild prominence of bilateral pulmonary vascular markings but no congestion suspected. The lungs are clear.
--- NOTE | ~2021-07-23 | MR_ITS ---
EXAMINATION: MR BRAIN WITHOUT CONTRAST CLINICAL INFORMATION: Left-sided weakness and transient aphasia. COMPARISON: CT dated 07/23/2021. TECHNIQUE: Multiplanar, multisequence imaging of the brain was performed without contrast. FINDINGS: No diffusion abnormalities are identified to suggest an acute infarct. The ventricles are normal in size. No mass effect or midline shift is seen. There are chronic lacunar infarcts and chronic small vessel ischemic changes in the liana. Chronic lacunar infarcts visible in the right frontal periventricular white matter right retrolenticular capsule, and right thalamus. No extra-axial fluid collections are seen. The cerebellum is normal. Chronic microhemorrhages present within the liana at the site of prior lacunar infarcts. The craniovertebral junction, marrow signal, and midline structures are normal. The major intracranial flow voids at the level of the [place] are preserved. The dural venous sinus flow voids are maintained. The mastoid air cells are well aerated. Mild mucosal thickening noted in the ethmoid and maxillary sinuses. MR/MR head/brain wo con IMPRESSION: No acute intracranial process. Numerous scattered chronic lacunar infarcts in the liana, right thalamus, right frontal periventricular white matter, and right retrolenticular capsule. Mild chronic white matter microangiopathy. Chronic microhemorrhages within the liana as well.
--- NOTE | ~2021-07-23 | CT_ITS ---
EXAMINATION: CT ANGIOGRAM HEAD AND NECK CLINICAL INFORMATION: Dizziness. COMPARISON: 07/23/2021 TECHNIQUE: Unenhanced CT of the head was performed initially. Test bolus sequences followed by intravenous administration 70 mL of Omnipaque 350 intravenous contrast. Helical imaging was performed in the axial plane from the mediastinum to the skull vertex. Delayed postcontrast imaging of the head was also performed. The data was processed at the veterinary technologist's workstation for generation of MIP sequences. Three-dimensional volume rendered reformatted images were also generated at an offline 3-D workstation. This CT examination was performed using dose optimization techniques as appropriate, variously including the following: *Automated exposure control *Adjustment of mA and/or kV according to patient size (this includes techniques or standardized protocols for targeted exams where dose is matched to indication/reason for exam; i.e. extremities or head) *Use of iterative reconstruction technique DLP: 1986 mGy-cm FINDINGS: SOFT TISSUES AND LUNG APICES: Mild bronchial wall thickening and mosaic attenuation related to air trapping evident at the lung apices. CTA NECK: The aortic arch has a classic configuration and the major arch vessel origins are non-stenotic. High-grade focal stenosis at the origin of the right vertebral artery, with normal opacification distally. Left vertebral artery is widely patent throughout its cervical course. Both common carotid arteries are normal in course and caliber. Both internal carotid arteries demonstrate mild atherosclerotic plaque without significant stenosis. CTA HEAD: There is normal opacification of the major intracranial vessels. No acute proximal large vessel occlusion, focal flow-limiting stenosis, or saccular intracranial aneurysm is identified. No abnormal parenchymal enhancement or regional oligemia is visualized. HEAD (noncontrast and delayed): No intracranial mass, intercerebral edema, hemorrhage, or midline shift is evident. The ventricles and sulci are stable in size and configuration. No extra-axial collections are appreciated. Mild patchy subcortical and periventricular white matter low-attenuation changes appear stable. Chronic lacunar infarcts within the liana, right thalamus and right retrolenticular capsule. Pathologic intracranial enhancement. Dural sinuses are patent. The paranasal sinuses are well-aerated and clear. CT/CT angio head neck IMPRESSION: * No occlusion or hemodynamically significant stenosis within the intracranial or extracranial arterial vasculature. * High-grade focal stenosis at the origin of the right vertebral artery. * Multifocal chronic lacunar infarcts as described. * Mild chronic white matter small vessel ischemic changes. * No acute infarcts.
--- NOTE | ~2021-07-23 | CT_ITS ---
EXAMINATION: CT HEAD WITHOUT CONTRAST (STROKE PROTOCOL) CLINICAL INFORMATION: Stroke protocol. Left-sided weakness and slurred speech COMPARISON: CT brain 04/09/2021 TECHNIQUE: Contiguous axial imaging was performed from the skull base to vertex without intravenous administration of contrast. This CT examination was performed using dose optimization techniques as appropriate, variously including the following: *Automated exposure control *Adjustment of mA and/or kV according to patient size (this includes techniques or standardized protocols for targeted exams where dose is matched to indication/reason for exam; i.e. extremities or head) *Use of iterative reconstruction technique DLP: 497 mGy-cm FINDINGS: There is no intracranial hemorrhage, hematoma, or extra-axial fluid collection. The ventricles are normal in size. There is no hydrocephalus, edema, or mass effect. The alvarez-white matter differentiation appears symmetric. There is no acute infarct or mass lesion. The calvarium appears intact. There is no pneumocephalus or orbital emphysema. There is minimal mucoperiosteal thickening right maxillary sinus. Rest of the paranasal sinuses and mastoid air cells are well-aerated. There are no air-fluid levels. CT/CT head for stroke IMPRESSION: No acute intracranial process seen. Chronic right maxillary sinus inflammatory changes. This critical result was discussed with CHLOÉ Pedraza at 3:30 PM on 07/23/2021. It was ascertained that the content and urgency of the report was understood at the time of direct communication.
--- NOTE | ~2021-07-23 | US_ITS ---
EXAMINATION: US RETROPERITONEAL LIMITED (RENAL ONLY) CLINICAL INFORMATION: Hypertension. Rule out renal artery stenosis. COMPARISON: Previous MRI of the abdomen June 2019 and ultrasound abdomen TECHNIQUE: Doppler color and alvarez-scale evaluation of the kidneys. Doppler and color imaging of the renal arteries. FINDINGS: RIGHT KIDNEY: 10.4 x 4.9 x 4.8 cm (SAG x AP x TRV). The kidney is normal in size, contour, and echogenicity. Renal cortical thickness is normal. No calculi or focal parenchymal lesions. No hydronephrosis. LEFT KIDNEY: 9.5 x 4.8 x 4.9 cm (SAG x AP x TRV). The kidney is normal in size, contour, and echogenicity. Renal cortical thickness is normal. No calculi or focal parenchymal lesions. No hydronephrosis. There is evidence of atherosclerotic disease. Visualized mid abdominal aorta is normal in caliber. This demonstrates increased peak systolic velocity of 222 cm/s. Renal artery to aorta ratio cannot be calculated. Right renal artery peak systolic velocity measured 77 cm/s proximally, 190 cm/s midportion and 189 cm/s distally. Right renal artery to aorta ratio cannot be calculated. Resistive indices in the right kidney are minimally elevated measuring 0.8. The right renal vein is patent. 2 left renal arteries are seen proximally. Peak systolic velocities measure 114 and 187 cm/s. Only one left renal arteries identified peripherally. Left renal artery systolic velocities are 193 cm/s in the midportion and 272 cm/s distally. Findings are suggestive of left renal artery stenosis. Left renal artery to aorta ratio cannot be calculated. Left renal resistive indices are elevated measuring 0.9. The left renal vein is patent. Review of MR of the abdomen from June 2019 suggests that there are 2 renal arteries bilaterally. US/US renal doppler IMPRESSION: Normal-appearing kidneys. Review of MRA suggests there are 2 renal arteries bilaterally. Increased velocities in the visualized left renal artery suggestive of left renal artery stenosis. Right renal artery peak systolic velocity is borderline elevated. Further imaging with CTA or MRA should be considered.
--- NOTE | 2021-07-23 14:48 | PC.NURSE ---
Please call Maddie Sorensen [phone] (daughter/HCP/PRODUCT MARKETING COORDINATOR) with questions and updates
--- NOTE | 2021-07-23 14:55 | ECG_ITS ---
Test Reason : TIA?/Hypertension Blood Pressure : / mmHG Vent. Rate : 064 BPM Atrial Rate : 064 BPM P-R Int : 164 ms QRS Dur : 064 ms QT Int : 444 ms P-R-T Axes : 049 -04 134 degrees QTc Int : 458 ms Normal sinus rhythm Minimal voltage criteria for LVH, may be normal variant ( R in aVL ) T wave abnormality, consider lateral ischemia Abnormal ECG When compared with ECG of 09-APR-2021 11:41, No significant change was found Referred By: Araseli Cordero Electronically Signed By:GIGI HOPPER
--- NOTE | 2021-07-23 14:58 | ED.AMS ---
HPI - Altered Mental Status General Chief Complaint: Stroke Stated Complaint: stroke Time Seen by Provider: 07/23/21 14:55 Source: patient, family, EMS, old records reviewed and interpreter deaf Mode of arrival: EMS Limitations: language barrier History of Present Illness HPI narrative: 60-year-old female with history of DM 2 with polyneuropathy and retinopathy, HTN, HLD, GERD, CVA, Sjogren syndrome, non alcoholic fatty liver disease, biliary cholangitis, history of gastric bypass, ARLINE, anemia who presents to the ER from home via EMS with concern for stroke. Her daughter called 911 because starting at 9am patient reported difficulty speaking when she woke up. She also reported bilateral leg weakness and tingling. After about 10 minutes she was able to speak again. Her leg weakness persisted, L>R and she was unable to stand or walk with her walker per her report. Spoke with patient's daughter Maddie who witnessed the events of this morning - she reports that the patient was standing in front of the toilet at 9am and urinated on herself. Pt reported that her legs wouldn't work. Maddie then gave her a bath. She tried to get her to walk and she states she was dragging her legs. She was staring at her daughter like she didn't recognize her and she wouldn't talk. Daughter took her BP and it was 205 systolic and her glucose was 67. She gave her food and her BP meds. She called her doctor and advised her to call 911 and come to the ER. complaint: weakness and other (difficulty speaking) Onset (ago): hour(s) (6) Time: 09:00 Timing confirmed by: family member Severity: moderate Consistency of symptoms: waxing and waning Context: diabetes Associated symptoms: headaches, malaise and weakness Related Data Home Medications Medication Instructions Recorded Confirmed albuterol sulfate 90 mcg/actuation 1 inh INHALATION QID PRN 04/28/20 07/23/21 aerosol inhaler blood sugar diagnostic (FreeStyle #10 ea 04/28/20 06/21/21 Lite Strips) fludrocortisone 0.1 mg tablet 0.05 mg PO DAILY 04/28/20 07/23/21 lancets 28 gauge (FreeStyle #100 ea 04/28/20 06/21/21 Lancets) sertraline 100 mg tablet 200 mg PO DAILY tab 04/28/20 07/23/21 multivitamin 1 tab PO DAILY 07/23/21 07/23/21 Previous Rx's Medication Instructions Recorded aspirin 81 mg tablet,delayed 81 mg PO DAILY #90 tab 11/12/20 release atorvastatin 40 mg tablet 40 mg PO DAILY #90 tab 11/12/20 cholecalciferol (vitamin D3) 50 50 mcg PO DAILY 30 Days #30 cap 11/16/20 mcg (2,000 unit) capsule bisacodyl 5 mg tablet,delayed 20 mg PO ONCE 1 Days #4 tab 01/22/21 release (Dulcolax (bisacodyl)) pen needle, diabetic 31 gauge x #100 ea 02/24/2109/22 (Comfort EZ Pen [place]) metformin 500 mg tablet 500 mg PO DAILY 90 Days #90 tab 04/26/21 acarbose 100 mg tablet 100 mg PO TID 90 Days #270 tab 06/09/21 risperidone 1 mg tablet 1 mg PO BEDTIME 90 Days #90 tab 07/08/21 ursodiol 250 mg tablet 250 mg PO TID #270 tab 07/15/21 lisinopril 40 mg tablet 40 mg PO DAILY 90 Days #90 tab 07/17/21 Allergies Allergy/AdvReac Type Severity Reaction Status Date / Time Latex, Natural Rubber Allergy Intermediate Rash Verified 06/21/21 11:01 Sulfa (Sulfonamide AdvReac Intermediate Stomach Verified 06/21/21 11:01 Antibiotics) Upset [SULFA (SULFONAMIDE ANTIBIOTICS)] Morphine Sulfate AdvReac Intermediate Abdominal Uncoded 06/21/21 11:01 Pain Review of Systems Review of Systems: Constitutional: No Fever, No Chills ENT/Mouth: No sore throat, No Rhinorrhea, No Swallowing Difficulty Eyes: No Eye Pain, No Swelling, No Redness, +blurry vision (both eyes) Cardiovascular: No Chest Pain, No SOB, No Orthopnea, No Edema Respiratory: No Cough, No Sputum, No Wheezing, No dyspnea Gastrointestinal: No Nausea, No Vomiting, No Diarrhea, No abdominal Pain, No Hematochezia, No Melena Genitourinary: No Dysuria, No Urinary Frequency, No Hematuria, +incontinence Musculoskeletal: No joint pain, No Myalgias Skin: No Skin Lesions, No rash Neuro: + Weakness, + Numbness/tingling, No Dizziness, + Headache Psych: No Anxiety/Panic, No Depression Heme/Lymph: No Bruising, No Lymphadenopathy Endocrine: No Polyuria, No Polydipsia PMFSH Past Medical History Medical History Asthma CVA (cerebral vascular accident) Diabetes type 2, uncontrolled Diabetic polyneuropathy associated with type 2 diabetes mellitus Diabetic retinopathy associated with type 2 diabetes mellitus Dyslipidemia Fatty liver disease, nonalcoholic GERD (gastroesophageal reflux disease) History of sleep apnea History of umbilical hernia HTN (hypertension) Hypertension Hypoglycemia after GI (gastrointestinal) surgery Postural hypotension Primary biliary cholangitis Sjogrens syndrome Subclinical hypothyroidism Surgical History History of carpal tunnel release History of esophagogastroduodenoscopy (EGD) History of laparoscopic appendectomy History of partial hysterectomy Hx of section Hx of colonoscopy Hx of dilation and curettage Hx of gastric bypass Hx of tonsillectomy Family History Family History Father PR (myocardial infarction) Diabetes mellitus Mother Diabetes mellitus CVA (cerebral vascular accident) Maternal Grandmother Stomach cancer Sister Hemorrhagic cerebrovascular accident (CVA) Social History Social History Household Members: Spouse Housing: Apartment Alcohol intake: never Patient Tobacco Use Status: Never used Tobacco e-Cigarette/Vaping Use: Never Used Second Hand Smoke Exposure: No Use of substances other than those prescribed or required for medical reasons: No Advance Directives: No Advance Directives Information Provided: No Advance Directives Date on File: 07/10/99 Patient : No service: No Current occupational status: retired and disabled Physical Exam Vital Signs: Vital Signs: Last Vital Signs Temp 98.2 F 07/23/21 15:16 Pulse 69 07/23/21 19:58 Resp 18 07/23/21 19:58 BP 186/79 H 07/23/21 19:58 Pulse Ox 98 07/23/21 19:58 BMI result Body Mass Index 24.2 Appearance: Alert. Oriented X3. No acute distress. Eyes: Pupils equal, round and reactive to light. ENT: Pharynx normal. Neck: Normal inspection. Neck supple. CVS: Normal heart rate and rhythm. Pulses normal. Respiratory: No respiratory distress. Breath sounds normal. Abdomen: Soft and nontender. +BS x4 Skin: Skin warm and dry. Normal skin color. Normal skin turgor. No rashes. Extremities: No lower extremity edema. Neuro: Oriented X 3. Speech and cognition are normal. No facial droop. CN II-XII intact. Left arm pronator drift present. Strength RUE 4/5, RLE 4/5, LLE 3/5, LUE 4/5. No sensory deficit. No visual field deficits. NIH Stroke Scale Internal: Initial- Upon Arrival Time: 15:10 Level of Consciousness: Alert Level of Consciousness Questions: Answers both questions correctly Level of Consciousness Commands: Performs both tasks correctly Best Gaze: Normal Visual: No visual loss Facial Palsy: Normal Motor Arm (Right): No drift Motor Arm (Left): Drift Motor Leg (Right): Some effort against gravity Motor Leg (Left): Some effort against gravity Limb Ataxia: Absent Sensory: Normal Best Language: No aphasia Dysarthia: Normal Extinction and Inattention: No abnormality Score: 5 Course Course Course Narrative: 60-year-old female with a history of strokes in the past, TIA, dm 2, CAD, anemia, ARLINE, poorly controlled HTN, HLD, GERD, Sjogren syndrome, fatty liver disease who presents to the ER with transient aphasia and more pronounced left-sided weakness that started at 09:00 today. Her speech is back to normal but her left-sided weakness is more pronounced than her baseline per patient's daughter. Her blood pressure is 223/85. Her glucose was 67 at home for EMS it was 118 after eating. She is out of tPA window. NIH [address] head, metabolic workup, allow for permissive hypertension for now and closely monitor in the ER. Reevaluation(s) Reevaluation #1: 15:38 - spoke w/ Dr. Chaney from Radiology - CT head is negative for acute findings. Case d/w Dr. Christensen - will get MRI for further evaluation. Reevaluation #2: MRI brain: No acute intracranial process. Numerous scattered chronic lacunar infarcts in the [place], right thalamus, right frontal periventricular white matter, and right retrolenticular capsule. Mild chronic white matter microangiopathy. Chronic microhemorrhages within the liana as well. BP 214/83 - now complaining of dizziness. Her transient aphasia may have been due to TIA vs hypoglycemia vs severe HTN. Will treat HTN with PO norvasc 10 mg now, she is on lisinopril 40 mg daily at home. Reevaluation #3: BP still 203/85. Will give IV labetalol and reassess Additional Reevaluation(s): BP improved to 180-190s systolic. Hospitalist TT for admission. MDM - Altered Mental Status Lab Data Result diagrams: 07/23/21 15:50 07/23/21 15:50 Labs: Lab Results 07/23/21 07/23/21 07/23/21 Range/Units 15:01 15:45 15:45 WBC (4.8-10.8) X10*3/uL RBC (4.20-5.50) X10*6/uL Hgb (12.0-16.0) g/dl Hct (37.0-47.0) % MCV (80.0-98.0) fL MCH (27.0-33.0) pg MCHC (31.0-35.0) g/dl RDW (11.0-16.0) % Plt Count (160-400) X10*3/uL MPV Immature Gran % (Auto) (0.0-0.4) % Neut % (Auto) (45-73) % Lymph % (Auto) (20-40) % [place] % (Auto) (2-11) % Eos % (Auto) (0-4) % Baso % (Auto) (0-2) % Lymph # (Auto) (1.2-4.9) X10*3/uL [place] # (Auto) (0.1-1.2) X10*3/uL Eos # (Auto) (0.0-0.4) X10*3/uL Baso # (Auto) (0.0-0.2) X10*3/uL Abs Immat Gran (auto) (0.00-0.03) X10*3/uL Absolute Neuts (auto) (2.0-8.3) x10*3/uL Absolute Nucleated RBC (0.0-0.012) X10*3/uL Nucleated RBC % (auto) (0.0-0.2) /100WBC PT (9.9-13.0) SEC INR (0.9-1.1) APTT (24.1-38.0) SEC Sodium (135-145) mmol/L Potassium (3.3-5.1) mmol/L Chloride (96-108) mmol/L Carbon Dioxide (22-29) mmol/L Anion Gap (12-20) BUN (9-16) mg/dL Creatinine (0.5-1.4) mg/dL Estim Creat Clear Calc Estimated GFR POC Glucose 86 (60-115) mg/dL Random Glucose (60-115) mg/dL Calcium (8.4-10.2) mg/dL Magnesium (1.6-2.6) mg/dL Total Bilirubin (0.0-1.0) mg/dL Direct Bilirubin (0.0-0.5) mg/dL AST (5-31) U/L ALT (0-31) U/L Alkaline Phosphatase (39-117) U/L Troponin I High Sens (<3.5-17.0) ng/L Total Protein (6.5-8.0) g/dL Albumin (3.5-5.0) g/dL Urine Color STRAW Urine Appearance CLEAR Urine pH 7.5 (5.0-8.0) Ur Specific [place] 1.020 (1.005-1.025) Urine Protein NEG (NEG-TRACE) MG/DL Urine Glucose (UA) NEG (NEG) MG/DL Urine Ketones NEG (NEG) MG/DL Urine Blood NEG (NEG) Urine Nitrite NEG (NEG) Ur Leukocyte Esterase NEG (NEG) Urine Opiates Screen (Not Detect) Urine Fentanyl Screen (Not Detect) Ur Barbiturates Screen (Not Detect) Ur Phencyclidine Scrn (Not Detect) Ur Amphetamines Screen (Not Detect) U Benzodiazepines Scrn (Not Detect) Urine Cocaine Screen (Not Detect) U Marijuana (THC) Screen (Not Detect) Ethyl Alcohol mg/dL COVID-19 (JAMSE) Negative (Negative) COVID-19 Clin Com See Note 07/23/21 07/23/21 07/23/21 Range/Units 15:45 15:50 15:50 WBC 5.2 (4.8-10.8) X10*3/uL RBC 4.78 (4.20-5.50) X10*6/uL Hgb 11.5 L (12.0-16.0) g/dl Hct 37.1 (37.0-47.0) % MCV 77.6 L (80.0-98.0) fL MCH 24.1 L (27.0-33.0) pg MCHC 31.0 (31.0-35.0) g/dl RDW 17.9 H (11.0-16.0) % Plt Count 192 (160-400) X10*3/uL MPV TNP Immature Gran % (Auto) 0.2 (0.0-0.4) % Neut % (Auto) 48.8 (45-73) % Lymph % (Auto) 38.2 (20-40) % [place] % (Auto) 8.5 (2-11) % Eos % (Auto) 3.5 (0-4) % Baso % (Auto) 0.8 (0-2) % Lymph # (Auto) 2.0 (1.2-4.9) X10*3/uL [place] # (Auto) 0.4 (0.1-1.2) X10*3/uL Eos # (Auto) 0.2 (0.0-0.4) X10*3/uL Baso # (Auto) 0.0 (0.0-0.2) X10*3/uL Abs Immat Gran (auto) 0.01 (0.00-0.03) X10*3/uL Absolute Neuts (auto) 2.5 (2.0-8.3) x10*3/uL Absolute Nucleated RBC 0.000 (0.0-0.012) X10*3/uL Nucleated RBC % (auto) 0.0 (0.0-0.2) /100WBC PT (9.9-13.0) SEC INR (0.9-1.1) APTT (24.1-38.0) SEC Sodium 144 (135-145) mmol/L Potassium 3.6 (3.3-5.1) mmol/L Chloride 105 (96-108) mmol/L Carbon Dioxide 32 H (22-29) mmol/L Anion Gap 11 L (12-20) BUN 12 (9-16) mg/dL Creatinine 0.73 (0.5-1.4) mg/dL Estim Creat Clear Calc 62.8 Estimated GFR > 60 POC Glucose (60-115) mg/dL Random Glucose 87 (60-115) mg/dL Calcium 8.8 (8.4-10.2) mg/dL Magnesium 1.8 (1.6-2.6) mg/dL Total Bilirubin 0.3 (0.0-1.0) mg/dL Direct Bilirubin 0.2 (0.0-0.5) mg/dL AST 83 H (5-31) U/L ALT 68 H (0-31) U/L Alkaline Phosphatase 335 H (39-117) U/L Troponin I High Sens (<3.5-17.0) ng/L Total Protein 7.6 (6.5-8.0) g/dL Albumin 3.4 L (3.5-5.0) g/dL Urine Color Urine Appearance Urine pH (5.0-8.0) Ur Specific [place] (1.005-1.025) Urine Protein (NEG-TRACE) MG/DL Urine Glucose (UA) (NEG) MG/DL Urine Ketones (NEG) MG/DL Urine Blood (NEG) Urine Nitrite (NEG) Ur Leukocyte Esterase (NEG) Urine Opiates Screen Not Detected (Not Detect) Urine Fentanyl Screen Not Detected (Not Detect) Ur Barbiturates Screen Not Detected (Not Detect) Ur Phencyclidine Scrn Not Detected (Not Detect) Ur Amphetamines Screen Not Detected (Not Detect) U Benzodiazepines Scrn Not Detected (Not Detect) Urine Cocaine Screen Not Detected (Not Detect) U Marijuana (THC) Screen Not Detected (Not Detect) Ethyl Alcohol mg/dL COVID-19 (JAMES) (Negative) COVID-19 Clin Com 07/23/21 07/23/21 07/23/21 Range/Units 15:50 15:50 15:50 WBC (4.8-10.8) X10*3/uL RBC (4.20-5.50) X10*6/uL Hgb (12.0-16.0) g/dl Hct (37.0-47.0) % MCV (80.0-98.0) fL MCH (27.0-33.0) pg MCHC (31.0-35.0) g/dl RDW (11.0-16.0) % Plt Count (160-400) X10*3/uL MPV Immature Gran % (Auto) (0.0-0.4) % Neut % (Auto) (45-73) % Lymph % (Auto) (20-40) % [place] % (Auto) (2-11) % Eos % (Auto) (0-4) % Baso % (Auto) (0-2) % Lymph # (Auto) (1.2-4.9) X10*3/uL [place] # (Auto) (0.1-1.2) X10*3/uL Eos # (Auto) (0.0-0.4) X10*3/uL Baso # (Auto) (0.0-0.2) X10*3/uL Abs Immat Gran (auto) (0.00-0.03) X10*3/uL Absolute Neuts (auto) (2.0-8.3) x10*3/uL Absolute Nucleated RBC (0.0-0.012) X10*3/uL Nucleated RBC % (auto) (0.0-0.2) /100WBC PT 13.2 H (9.9-13.0) SEC INR 1.2 H (0.9-1.1) APTT 40.5 H (24.1-38.0) SEC Sodium (135-145) mmol/L Potassium (3.3-5.1) mmol/L Chloride (96-108) mmol/L Carbon Dioxide (22-29) mmol/L Anion Gap (12-20) BUN (9-16) mg/dL Creatinine (0.5-1.4) mg/dL Estim Creat Clear Calc Estimated GFR POC Glucose (60-115) mg/dL Random Glucose (60-115) mg/dL Calcium (8.4-10.2) mg/dL Magnesium (1.6-2.6) mg/dL Total Bilirubin (0.0-1.0) mg/dL Direct Bilirubin (0.0-0.5) mg/dL AST (5-31) U/L ALT (0-31) U/L Alkaline Phosphatase (39-117) U/L Troponin I High Sens 12.2 (<3.5-17.0) ng/L Total Protein (6.5-8.0) g/dL Albumin (3.5-5.0) g/dL Urine Color Urine Appearance Urine pH (5.0-8.0) Ur Specific [place] (1.005-1.025) Urine Protein (NEG-TRACE) MG/DL Urine Glucose (UA) (NEG) MG/DL Urine Ketones (NEG) MG/DL Urine Blood (NEG) Urine Nitrite (NEG) Ur Leukocyte Esterase (NEG) Urine Opiates Screen (Not Detect) Urine Fentanyl Screen (Not Detect) Ur Barbiturates Screen (Not Detect) Ur Phencyclidine Scrn (Not Detect) Ur Amphetamines Screen (Not Detect) U Benzodiazepines Scrn (Not Detect) Urine Cocaine Screen (Not Detect) U Marijuana (THC) Screen (Not Detect) Ethyl Alcohol < 10 mg/dL COVID-19 (JAMES) (Negative) COVID-19 Clin Com ECG Data ECG #1: Attestation: I personally reviewed and interpreted this ECG as follows: ECG interpretation date: 07/23/21 ECG interpretation time: 18:12 Prior ECG tracings: available for review Interpretation: Normal sinus rhythm, heart rate 64 BPM, T-wave inversion in lead 1. normal SC interval, normal QTC. no ST segment elevations or depressions Critical Care Time Critical Care Time Critical Care Time: Yes Total Critical Care Time: 45 Attestation: I have personally provided critical care time exclusive of time spent on separately billable procedures. Time includes review of lab data, radiology results, discussion with consultants/hospitalists, and monitoring for potential decompensation. Intervention performed as documented. Discharge Plan Discharge Clinical Impression: Hypertensive emergency Transient cerebral ischemia Qualifiers: Transient cerebral ischemia type: other Qualified Code(s): G45.8 - Other transient cerebral ischemic attacks and related syndromes Patient Disposition: Admitted As Inpatient
[2021-07-23 15:06] LABS: Glucose, Whole Blood 86 mg/dL (60-115)
--- NOTE | 2021-07-23 15:41 | PHA.MEDREC ---
Pharmacy Consult ? Medication Reconciliation Pharmacy has completed the medication reconciliation. Spoke to patient's daughter Maddie ([phone]) who stated that she doesn't take insulin anymore due to an allergy but could not provide detail. Provided a complete list of patient's other meds. Ami Mcintosh, DhruvD
[2021-07-23 15:55] LABS: MANUAL DIFF FLAG NO
[2021-07-23 15:59] LABS: Appearance Urine CLEAR; Color Urine STRAW; Glucose Urine UA NEG (NEG); Leukocyte Esterase Urine NEG (NEG); Nitrite Urine NEG (NEG); PH 7.5 (5.0-8.0); Urine Blood NEG (NEG); Urine Ketones NEG (NEG); Urine Protein NEG (NEG-TRACE)
[2021-07-23 15:59] LABS: Basophils Percent Auto 0.8 % (0-2); Eosinophils Absolute Auto 0.2 X10*3/uL (0.0-0.4); Eosinophils Percent Auto 3.5 % (0-4); Hematocrit 37.1 % (37.0-47.0); Hemoglobin 11.5 g/dl (12.0-16.0); Imm Gran Abs Auto 0.01 X10*3/uL (0.00-0.03); Imm Gran Pct Auto 0.2 % (0.0-0.4); Lymphocytes Percent Auto 38.2 % (20-40); Mean Corpuscular Hemoglobin 24.1 pg (27.0-33.0); Mean Corpuscular Volume 77.6 fL (80.0-98.0); Monocytes Absolute Auto 0.4 X10*3/uL (0.1-1.2); Monocytes Percent Auto 8.5 % (2-11); Neutrophils Absolute Auto 2.5 x10*3/uL (2.0-8.3); Neutrophils Percent Auto 48.8 % (45-73); Platelet Count 192 X10*3/uL (160-400); Red Blood Count 4.78 X10*6/uL (4.20-5.50); Red Cell Distribution Width 17.9 % (11.0-16.0); White Blood Count 5.2 X10*3/uL (4.8-10.8)
[2021-07-23 16:04] LABS: INTERNATIONAL NORM RATIO 1.2 (0.9-1.1); Prothrombin Time 13.2 SEC (9.9-13.0)
[2021-07-23 16:06] LABS: Partial Thromboplastin Time 40.5 SEC (24.1-38.0)
[2021-07-23 16:08] LABS: Ethanol < 10 mg/dL
[2021-07-23 16:12] LABS: COVID-19 Test Negative (Negative); IDNOW Serial# 9DD0AD1C
[2021-07-23 16:12] LABS: Alanine Aminotransferase 68 U/L (0-31); Albumin Level 3.4 g/dL (3.5-5.0); Alkaline Phosphatase 335 U/L (39-117); Anion Gap 11 (12-20); Aspartate Amino Transferase 83 U/L (5-31); Bilirubin Direct 0.2 mg/dL (0.0-0.5); Bilirubin Total 0.3 mg/dL (0.0-1.0); Blood Urea Nitrogen 12 mg/dL (9-16); Calcium 8.8 mg/dL (8.4-10.2); Carbon Dioxide 32 mmol/L (22-29); Chloride 105 mmol/L (96-108); Creatinine Clr Calc Pharmacy 62.8; Estimated Glomerular Filt Rate > 60; Glucose Random 87 mg/dL (60-115); Magnesium 1.8 mg/dL (1.6-2.6); Potassium 3.6 mmol/L (3.3-5.1); Sodium 144 mmol/L (135-145); Total Protein 7.6 g/dL (6.5-8.0)
[2021-07-23 16:13] LABS: Amphetamine Screen Urine Not Detected (Not Detect); Barbiturates, Urine Not Detected (Not Detect); Benzodiazepines Screen Urine Not Detected (Not Detect); Cannabinoid Screen Urine Not Detected (Not Detect); Cocaine Screen Urine Not Detected (Not Detect); Fentanyl, urine Not Detected (Not Detect); Opiate Screen Urine Not Detected (Not Detect); Phencyclidine Screen Urine Not Detected (Not Detect)
[2021-07-23 16:18] LABS: Troponin-I High Sensitivity 12.2 ng/L (<3.5-17.0)
[2021-07-23] MEDS: amLODIPine Besylate 10 MG TABLET PO (17:47)
[2021-07-23] MEDS: Labetalol HCL 100 MG/20 ML VIAL 10 MG IVPUSH (19:56)
--- NOTE | 2021-07-23 21:45 | PM.IMHP ---
History of Present Illness Date of Service: 07/23/21 Chief Complaint: dizziness, left sided weakness Bulgarian-speaking only, history is obtained with the help of development administrator this is a 60-year-old female with past medical history of asthma, CVA, diabetes, hypertension, GERD, sleep apnea, gastric bypass, primary biliary cholangitis, Sjogren syndrome, subclinical hypothyroidism who presents to the hospital with Multiple symptoms including dizziness, left-sided weakness, and transient confusion. According to the daughter patient went to the bathroom, stood in the bathroom, Peed herself, appear to not recognize her daughter, she was stuttering in the distance, this lasted about 10 minutes, and patient returned to her normal state of health although she was dragging her feet and felt extremely weak. Patient was also complaining of dizziness. Patient herself states that she has been feeling dizzy, she has blurry vision, she is nauseous, with no vomiting, feels legs shaking, would not move, complaining of leg weakness mostly on the left, denies any arm weakness, no slurred speech, no facial droop. Patient denies any fever or chills, no chest pain, no palpitations, no abdominal pain, no diarrhea constipation, no urinary symptoms and no swelling in her legs. On arrival to the ED patient hemodynamically stable with systolic blood pressure of 220 patient was treated with Norvasc and 10 mg of IV labetalol with blood pressure improving. labs are significant for WBC count of 5.2, hemoglobin of 11.5 which is around her baseline, hematocrit 37.1, AST of 83, ALT of 60, alk-phos of 335 which is around her baseline, UA negative, UDS negative, COVID-[address] head and neck CT angiogram shows no occlusion or hemodynamically significant stenosis within the intracranial or extracranial arterial vasculature, high-grade focal stenosis at the origin of the right vertebral artery, multifocal chronic lacunar infarct as described. Brain MRI showedc no acute intracranial process. Numerous scattered chronic lacunar infarcts in the liana, right thalamus, right frontal periventricular white matter and right retrolenticular capsule. patient will be admitted for observation Review of Systems Review of Systems: Yes all other systems are reviewed and are negative [facility] Medical History Asthma CVA (cerebral vascular accident) Diabetes type 2, uncontrolled Diabetic polyneuropathy associated with type 2 diabetes mellitus Diabetic retinopathy associated with type 2 diabetes mellitus Dyslipidemia Fatty liver disease, nonalcoholic GERD (gastroesophageal reflux disease) History of sleep apnea History of umbilical hernia HTN (hypertension) Hypertension Hypoglycemia after GI (gastrointestinal) surgery Postural hypotension Primary biliary cholangitis Sjogrens syndrome Subclinical hypothyroidism Family History Father [place] (myocardial infarction) Diabetes mellitus Mother Diabetes mellitus CVA (cerebral vascular accident) Maternal Grandmother Stomach cancer Sister Hemorrhagic cerebrovascular accident (CVA) Surgical History History of carpal tunnel release History of esophagogastroduodenoscopy (EGD) History of laparoscopic appendectomy History of partial hysterectomy Hx of section Hx of colonoscopy Hx of dilation and curettage Hx of gastric bypass Hx of tonsillectomy Social History Household Members: Spouse Housing: Apartment Do you presently have visiting nurse or other home services: Yes Alcohol intake: never Patient Tobacco Use Status: Never used Tobacco e-Cigarette/Vaping Use: Never Used Second Hand Smoke Exposure: No Use of substances other than those prescribed or required for medical reasons: No Have you been hit, kicked, punched, or otherwise hurt by someone within the past year? If so, by whom?: No Do you feel safe in your current relationship?: Yes Is there a partner from a previous relationship who is making you feel unsafe now?: No Advance Directives: No Advance Directives Information Provided: No Advance Directives Date on File: 07/10/99 Do you have thoughts of harming others: None Do you have a plan to hurt others: No Plan Recently lost weight without trying: Unsure Nutrition Risks: No Nutritional Risk Patient : No : No Poor oral hygiene: No service: No Current occupational status: retired and disabled Meds Allergies Allergy/AdvReac Type Severity Reaction Status Date / Time Latex, Natural Rubber Allergy Intermediate Rash Verified 06/21/21 11:01 Sulfa (Sulfonamide AdvReac Intermediate Stomach Verified 06/21/21 11:01 Antibiotics) Upset [SULFA (SULFONAMIDE ANTIBIOTICS)] Morphine Sulfate AdvReac Intermediate Abdominal Uncoded 06/21/21 11:01 Pain Active Medications: Current Medications Pharmacy Consult (Consult Rx Perform Med Rec) 1 each MISCELLANE ONCE PRN PRN Reason: Consult order Home Medications Medication Instructions Recorded Confirmed Last Taken Type albuterol sulfate 90 mcg/actuation 1 inh INHALATION QID PRN 04/28/20 07/23/21 Unknown History aerosol inhaler blood sugar diagnostic (FreeStyle #10 ea 04/28/20 06/21/21 Unknown History Lite Strips) fludrocortisone 0.1 mg tablet 0.05 mg PO DAILY 04/28/20 07/23/21 07/23/21 History lancets 28 gauge (FreeStyle #100 ea 04/28/20 06/21/21 Unknown History Lancets) sertraline 100 mg tablet 200 mg PO DAILY tab 04/28/20 07/23/21 07/23/21 History multivitamin 1 tab PO DAILY 07/23/21 07/23/21 07/23/21 History Physical Exam Vital Signs and Narrative: Vital Signs: Last Vital Signs Temp 98.2 F 07/23/21 15:16 Pulse 66 07/23/21 20:34 Resp 18 07/23/21 20:34 BP 169/73 H 07/23/21 20:34 Pulse Ox 96 07/23/21 20:34 BMI result Body Mass Index 24.2 Const: General: cooperative and no acute distress Orientation/consciousness: patient oriented x3 Eyes: General: appearance normal, both eyes and all related structures Pupils: Equal, round and reactive pupils present Resp: Effort & Inspection: normal respiratory effort Auscultation: clear to auscultation bilaterally Cardio: Rate: regular rate Rhythm: regular rhythm GI: Palpation (GI): Soft to palpation Auscultation: normal bowel sounds Skin: General skin exam: no rashes or lesions noted Neuro: Other: no neurological deficits cranial nerve 2-12 intact, strength is 5/5 in all extremities General: patient oriented x3 Cranial nerves: Yes Equal, round and reactive pupils present Cognition (Neuro): normal cognition Extrem: General: Yes normal to inspection and Yes no pedal edema Results Labs CBC and Chem 7: 07/23/21 15:50 07/24/21 04:45 Labs: Laboratory Results - last 24 hr 07/23/21 07/23/21 07/23/21 15:01 15:45 15:45 MCV MCH MCHC RDW Plt Count MPV Immature Gran % (Auto) Neut % (Auto) Lymph % (Auto) [place] % (Auto) Eos % (Auto) Baso % (Auto) Lymph # (Auto) [place] # (Auto) Eos # (Auto) Baso # (Auto) Abs Immat Gran (auto) Absolute Neuts (auto) Absolute Nucleated RBC Nucleated RBC % (auto) PT INR APTT Anion Gap Estim Creat Clear Calc Estimated GFR POC Glucose 86 Random Glucose Calcium Magnesium Total Bilirubin Direct Bilirubin AST ALT Alkaline Phosphatase Troponin I High Sens Total Protein Albumin Urine Color STRAW Urine Appearance CLEAR Urine pH 7.5 Ur Specific [place] 1.020 Urine Protein NEG Urine Glucose (UA) NEG Urine Ketones NEG Urine Blood NEG Urine Nitrite NEG Ur Leukocyte Esterase NEG Urine Opiates Screen Urine Fentanyl Screen Ur Barbiturates Screen Ur Phencyclidine Scrn Ur Amphetamines Screen U Benzodiazepines Scrn Urine Cocaine Screen U Marijuana (THC) Screen Ethyl Alcohol COVID-19 (JAMES) Negative COVID-19 Clin Com See Note 07/23/21 07/23/21 07/23/21 15:45 15:50 15:50 MCV 77.6 L MCH 24.1 L MCHC 31.0 RDW 17.9 H Plt Count 192 MPV TNP Immature Gran % (Auto) 0.2 Neut % (Auto) 48.8 Lymph % (Auto) 38.2 [place] % (Auto) 8.5 Eos % (Auto) 3.5 Baso % (Auto) 0.8 Lymph # (Auto) 2.0 [place] # (Auto) 0.4 Eos # (Auto) 0.2 Baso # (Auto) 0.0 Abs Immat Gran (auto) 0.01 Absolute Neuts (auto) 2.5 Absolute Nucleated RBC 0.000 Nucleated RBC % (auto) 0.0 PT INR APTT Anion Gap 11 L Estim Creat Clear Calc 62.8 Estimated GFR > 60 POC Glucose Random Glucose 87 Calcium 8.8 Magnesium 1.8 Total Bilirubin 0.3 Direct Bilirubin 0.2 AST 83 H ALT 68 H Alkaline Phosphatase 335 H Troponin I High Sens Total Protein 7.6 Albumin 3.4 L Urine Color Urine Appearance Urine pH Ur Specific [place] Urine Protein Urine Glucose (UA) Urine Ketones Urine Blood Urine Nitrite Ur Leukocyte Esterase Urine Opiates Screen Not Detected Urine Fentanyl Screen Not Detected Ur Barbiturates Screen Not Detected Ur Phencyclidine Scrn Not Detected Ur Amphetamines Screen Not Detected U Benzodiazepines Scrn Not Detected Urine Cocaine Screen Not Detected U Marijuana (THC) Screen Not Detected Ethyl Alcohol COVID-19 (JAMES) COVID-19 Clin Com 07/23/21 07/23/21 07/23/21 15:50 15:50 15:50 MCV MCH MCHC RDW Plt Count MPV Immature Gran % (Auto) Neut % (Auto) Lymph % (Auto) [place] % (Auto) Eos % (Auto) Baso % (Auto) Lymph # (Auto) [place] # (Auto) Eos # (Auto) Baso # (Auto) Abs Immat Gran (auto) Absolute Neuts (auto) Absolute Nucleated RBC Nucleated RBC % (auto) PT 13.2 H INR 1.2 H APTT 40.5 H Anion Gap Estim Creat Clear Calc Estimated GFR POC Glucose Random Glucose Calcium Magnesium Total Bilirubin Direct Bilirubin AST ALT Alkaline Phosphatase Troponin I High Sens 12.2 Total Protein Albumin Urine Color Urine Appearance Urine pH Ur Specific [place] Urine Protein Urine Glucose (UA) Urine Ketones Urine Blood Urine Nitrite Ur Leukocyte Esterase Urine Opiates Screen Urine Fentanyl Screen Ur Barbiturates Screen Ur Phencyclidine Scrn Ur Amphetamines Screen U Benzodiazepines Scrn Urine Cocaine Screen U Marijuana (THC) Screen Ethyl Alcohol < 10 COVID-19 (JAMES) COVID-19 Clin Com Imaging Radiologist's Impressions: Impressions Chest X-Ray 07/23/21 15:00 IMPRESSION: Mild prominence of bilateral pulmonary vascular markings but no congestion suspected. The lungs are clear. Head CT 07/23/21 15:20 IMPRESSION: No acute intracranial process seen. Chronic right maxillary sinus inflammatory changes. This critical result was discussed with CHLOÉ Pedraza at 3:30 PM on 07/23/2021. It was ascertained that the content and urgency of the report was understood at the time of direct communication. Brain MRI 07/23/21 16:49 IMPRESSION: No acute intracranial process. Numerous scattered chronic lacunar infarcts in the liana, right thalamus, right frontal periventricular white matter, and right retrolenticular capsule. Mild chronic white matter microangiopathy. Chronic microhemorrhages within the liana as well. Assessment and Plan (1) Hypertensive emergency: Status: Acute (2) Generalized weakness: Status: Acute (3) Dizziness: Status: Acute 60-year-old female with past medical history of hypertension diabetes, Sjogren's, CVA, among others presents to the hospital with complaints of weakness, dizziness, as well as in hypertensive emergency with blood pressure systolic of 220. # Hypertensive emergency - with neurological symptoms including weakness as well as dizziness -MRI negative for any acute process, patient has history of CVA but does not appear to have acute intracranial pathology today, head and neck CT angiogram showed no aneurysm but has high-grade occlusion of the vertebral artery - patient received labetalol 10 mg IV as well as amlodipine p.o., will continue amlodipine daily and resume her home medication of lisinopril - at this time admit to telemetry and observe # generalized weakness and dizziness - most likely secondary to above - no neurological deficit - monitor and control blood pressure # diabetes - hold anti hyperglycemics - low-dose sliding scale, diabetic diet DVT prophylaxis: Lovenox Quality Stroke Does the patient have a stroke diagnosis?: No VTE Prior VTE?: No VTE Risk Level:: Medical - moderate - high VTE Device Contraindication: Treatment Not Indicated VTE Drug Contraindication: N/A - Med Ordered
--- NOTE | 2021-07-23 22:02 | PC.NURSE ---
BP 164/75 Hospitalist notified
[2021-07-23] MEDS: iohexoL 350 MG/ML 100 ML INFUS..BTL IV (22:51)
[2021-07-23] MEDS: iohexoL 350 MG/ML 100 ML INFUS..BTL 70 ML IV (23:01)
[2021-07-23] MEDS: risperiDONE 1 MG TABLET PO (23:09)
[2021-07-23] MEDS: Enoxaparin Sodium 40 MG/0.4 ML SYRINGE SUBCUT (23:11)
--- NOTE | 2021-07-23 23:14 | PC.NURSE ---
BP 174/67 Hospitalist notified No new orders at this time
--- NOTE | 2021-07-24 01:12 | PC.NURSE ---
nurse to nurse report given to Jhoana CRABTREE
[2021-07-24 04:00] VITALS: BP 112/54; PULSE 58; RESP 17; TEMP 36.2; O2SAT 97
[2021-07-24 05:26] LABS: Imm Gran Abs Auto 0.01 X10*3/uL (0.00-0.03); Imm Gran Pct Auto 0.2 % (0.0-0.4); MANUAL DIFF FLAG SCAN; Red Cell Distribution Width 17.9 % (11.0-16.0); SCAN SMEAR FLAG 1
[2021-07-24 05:28] LABS: Basophils Percent Auto 0.5 % (0-2); Eosinophils Absolute Auto 0.2 X10*3/uL (0.0-0.4); Eosinophils Percent Auto 3.2 % (0-4); Hematocrit 33.5 % (37.0-47.0); Hemoglobin 10.2 g/dl (12.0-16.0); Lymphocytes Absolute Auto 2.4 X10*3/uL (1.2-4.9); Lymphocytes Percent Auto 40.7 % (20-40); Mean Corpuscular HGB Conc 30.4 g/dl (31.0-35.0); Mean Corpuscular Hemoglobin 23.5 pg (27.0-33.0); Mean Corpuscular Volume 77.2 fL (80.0-98.0); Monocytes Absolute Auto 0.5 X10*3/uL (0.1-1.2); Monocytes Percent Auto 8.5 % (2-11); Neutrophils Absolute Auto 2.8 x10*3/uL (2.0-8.3); Neutrophils Percent Auto 46.9 % (45-73); Platelet Count 188 X10*3/uL (160-400); Red Blood Count 4.34 X10*6/uL (4.20-5.50)
[2021-07-24 05:38] LABS: PLT ABN DIST 1
[2021-07-24 05:46] LABS: Anion Gap 12 (12-20); Blood Urea Nitrogen 13 mg/dL (9-16); Calcium 8.6 mg/dL (8.4-10.2); Carbon Dioxide 31 mmol/L (22-29); Chloride 103 mmol/L (96-108); Creatinine Clr Calc Pharmacy 58.7; Estimated Glomerular Filt Rate > 60; Glucose Random 68 mg/dL (60-115); Potassium 3.2 mmol/L (3.3-5.1); Sodium 143 mmol/L (135-145)
[2021-07-24 05:51] LABS: SLIDE REVIEW VERIFIED
[2021-07-24 07:25] VITALS: BP 133/60; PULSE 57; RESP 18; TEMP 36.6; O2SAT 98
[2021-07-24 07:45] LABS: Glucose, Whole Blood 74 mg/dL (60-115)
[2021-07-24] MEDS: Multivitamin TABLET 1 TAB PO (09:02)
[2021-07-24] MEDS: 0.9 % Sodium Chloride Flush 3 ML SYRINGE IVFLUSH ×2 (09:02→16:56)
[2021-07-24] MEDS: Atorvastatin Calcium 40 MG TABLET PO (09:02)
[2021-07-24] MEDS: lisinopriL 40 MG TABLET PO (09:02)
[2021-07-24] MEDS: Fludrocortisone Acetate 0.1 MG TABLET 0.05 MG PO (09:02)
[2021-07-24] MEDS: amLODIPine Besylate 5 MG TABLET PO (09:02)
[2021-07-24] MEDS: Sertraline HCL 100 MG TABLET 200 MG PO (09:03)
[2021-07-24] MEDS: Aspirin Enteric Coated 81 MG TABLET.DR PO (09:04)
[2021-07-24] MEDS: Cholecalciferol (Vitamin D3) 25 MCG TABLET 50 MCG PO (09:04)
[2021-07-24 11:18] VITALS: BP 126/62; PULSE 65; RESP 18; TEMP 36.2; O2SAT 95
[2021-07-24 12:03] LABS: Glucose, Whole Blood 112 mg/dL (60-115)
--- NOTE | 2021-07-24 12:55 | P.PNIM_ITS ---
Subjective Subjective Date of Service: 07/24/21 Interval History: History obtained via check grader, patient complaining of left sided weakness, answering questions appropriately ,denies dizziness, no speech impairment, denies headache, no visual symptoms, denies nausea, vomiting no abdominal pain no urinary symptoms. Denies hip pain , no falls . Review of Systems Review of Systems: Yes all other systems are reviewed and are negative Physical Exam Vital Signs: Vital Signs: Last Vital Signs Temp 97.1 F 07/24/21 11:18 Pulse 65 07/24/21 11:18 Resp 18 07/24/21 11:18 BP 126/62 07/24/21 11:18 Pulse Ox 95 07/24/21 11:18 BMI result Body Mass Index 24.2 General resting comfortably in no acute distress. Neck supple no JVD. CVS regular rate rhythm, Respiratory lungs clear to auscultation, no respiratory distress, no wheeze, no rhonchi. Gastrointestinal abdomen soft, nontender, bowel sounds audible Extremities no edema. Neuro awake alert x3, speech clear, cranial nerve 2-12 intact, left lower extremity decreased strength and tone, left upper extremity mild weakness 4/5, gait not assessed Skin no rash Psych appropriate affect Objective Data Active Medications Acetaminophen (Acetaminophen 325 Mg Tablet) 650 mg PO Q6H PRN PRN Reason: Pain, Mild (Pain Scale 1-3) Albuterol Sulfate (Albuterol Sulfate 90 Mcg 8 Gm Inhaler) 1 puff INHALE QID PRN PRN Reason: Shortness Of Breath Or Wheezing Amlodipine Besylate (Amlodipine Besylate 5 Mg Tablet) 5 mg PO DAILY [facility]; Protocol Last Admin: 07/24/21 09:02 Dose: 5 mg Documented by: ROSALINA Aspirin (Aspirin Enteric Coated 81 Mg Tablet.) 81 mg PO DAILY [facility] Last Admin: 07/24/21 09:04 Dose: 81 mg Documented by: ROSALINA Atorvastatin Calcium (Atorvastatin Calcium 40 Mg Tablet) 40 mg PO DAILY [facility] Last Admin: 07/24/21 09:02 Dose: 40 mg Documented by: ROSALINA Bisacodyl (Bisacodyl 5 Mg Tablet.) 20 mg PO ONCE [facility] Dextrose (Dextrose 50 % 25 Gm/50 Ml Syringe) 25 gm IVPUSH Q15M PRN; Protocol PRN Reason: per Hypoglycemia Standing Ord. Docusate Sodium (Docusate Sodium 100 Mg Capsule) 100 mg PO DAILY PRN PRN Reason: Constipation Enoxaparin Sodium (Enoxaparin Sodium 40 Mg/0.4 Ml Syringe) 40 mg SUBCUT Q24H [facility] Last Admin: 07/23/21 23:11 Dose: 40 mg Documented by: TONEY Fludrocortisone Acetate (Fludrocortisone Acetate 0.1 Mg Tablet) 0.05 mg PO DAILY [facility] Last Admin: 07/24/21 09:02 Dose: 0.05 mg Documented by: ROSALINA Glucose (Glucose Gel 15 Gm Gel..Gram.) 15 gm PO Q15M PRN; Protocol PRN Reason: per Hypoglycemia Standing Ord. Hydralazine HCl (Hydralazine Hcl 20 Mg/Ml Vial) 5 mg IVPUSH Q6H PRN; Protocol PRN Reason: abp>180 Insulin Human Lispro (Insulin Lispro 100 Unit/Ml 3 Ml Vial) 0 unit SUBCUT QIDACHS [facility]; Protocol Last Admin: 07/24/21 12:13 Dose: Not Given Documented by: ROSALINA Non-Admin Reason: No Insulin Coverage Lisinopril (Lisinopril 40 Mg Tablet) 40 mg PO DAILY [facility]; Protocol Last Admin: 07/24/21 09:02 Dose: 40 mg Documented by: ROSALINA Multivitamins/Vitamin C (Multivitamin Tablet) 1 tab PO DAILY [facility] Last Admin: 07/24/21 09:02 Dose: 1 tab Documented by: ROSALINA Non-Formulary Medication (Acarbose) 100 mg PO TID [facility] Non-Formulary Medication (Ursodiol) 250 mg PO TID [facility] Ondansetron HCl (Ondansetron Hcl 4 Mg/2 Ml Vial) 4 mg IVPUSH Q8H PRN PRN Reason: Nausea and Vomiting Pharmacy Consult (Consult Rx Perform Med Rec) 1 each MISCELLANE ONCE PRN PRN Reason: Consult order Risperidone (Risperidone 1 Mg Tablet) 1 mg PO BEDTIME [facility] Last Admin: 07/23/21 23:09 Dose: 1 mg Documented by: TONEY Sertraline HCl (Sertraline Hcl 100 Mg Tablet) 200 mg PO DAILY [facility] Last Admin: 07/24/21 09:03 Dose: 200 mg Documented by: ROSALINA Sodium Chloride (0.9 % Sodium Chloride Flush 3 Ml Syringe) 3 ml IVFLUSH QSHIFT [facility] Last Admin: 07/24/21 09:02 Dose: 3 ml Documented by: ROSALINA Vitamin D (Cholecalciferol (Vitamin D3) 25 Mcg Tablet) 50 mcg PO DAILY [facility] Last Admin: 07/24/21 09:04 Dose: 50 mcg Documented by: RSOALINA Labs CBC & Chem 7: 07/24/21 04:45 07/24/21 04:45 Labs: Laboratory Results - last 24 hr 07/23/21 07/23/21 07/23/21 15:01 15:45 15:45 MCV MCH MCHC RDW Plt Count MPV Immature Gran % (Auto) Neut % (Auto) Lymph % (Auto) [place] % (Auto) Eos % (Auto) Baso % (Auto) Lymph # (Auto) [place] # (Auto) Eos # (Auto) Baso # (Auto) Abs Immat Gran (auto) Absolute Neuts (auto) Absolute Nucleated RBC Nucleated RBC % (auto) Smear Tech's Comments PT INR APTT Anion Gap Estim Creat Clear Calc Estimated GFR POC Glucose 86 Random Glucose Calcium Magnesium Total Bilirubin Direct Bilirubin AST ALT Alkaline Phosphatase Troponin I High Sens Total Protein Albumin Urine Color STRAW Urine Appearance CLEAR Urine pH 7.5 Ur Specific [place] 1.020 Urine Protein NEG Urine Glucose (UA) NEG Urine Ketones NEG Urine Blood NEG Urine Nitrite NEG Ur Leukocyte Esterase NEG Urine Opiates Screen Urine Fentanyl Screen Ur Barbiturates Screen Ur Phencyclidine Scrn Ur Amphetamines Screen U Benzodiazepines Scrn Urine Cocaine Screen U Marijuana (THC) Screen Ethyl Alcohol COVID-19 (JAMES) Negative COVID-19 Clin Com See Note 07/23/21 07/23/21 07/23/21 15:45 15:50 15:50 MCV 77.6 L MCH 24.1 L MCHC 31.0 RDW 17.9 H Plt Count 192 MPV TNP Immature Gran % (Auto) 0.2 Neut % (Auto) 48.8 Lymph % (Auto) 38.2 [place] % (Auto) 8.5 Eos % (Auto) 3.5 Baso % (Auto) 0.8 Lymph # (Auto) 2.0 [place] # (Auto) 0.4 Eos # (Auto) 0.2 Baso # (Auto) 0.0 Abs Immat Gran (auto) 0.01 Absolute Neuts (auto) 2.5 Absolute Nucleated RBC 0.000 Nucleated RBC % (auto) 0.0 Smear Tech's Comments PT INR APTT Anion Gap 11 L Estim Creat Clear Calc 62.8 Estimated GFR > 60 POC Glucose Random Glucose 87 Calcium 8.8 Magnesium 1.8 Total Bilirubin 0.3 Direct Bilirubin 0.2 AST 83 H ALT 68 H Alkaline Phosphatase 335 H Troponin I High Sens Total Protein 7.6 Albumin 3.4 L Urine Color Urine Appearance Urine pH Ur Specific [place] Urine Protein Urine Glucose (UA) Urine Ketones Urine Blood Urine Nitrite Ur Leukocyte Esterase Urine Opiates Screen Not Detected Urine Fentanyl Screen Not Detected Ur Barbiturates Screen Not Detected Ur Phencyclidine Scrn Not Detected Ur Amphetamines Screen Not Detected U Benzodiazepines Scrn Not Detected Urine Cocaine Screen Not Detected U Marijuana (THC) Screen Not Detected Ethyl Alcohol COVID-19 (JAMES) [employer] 07/23/21 07/23/21 07/23/21 15:50 15:50 15:50 MCV MCH MCHC RDW Plt Count MPV Immature Gran % (Auto) Neut % (Auto) Lymph % (Auto) [place] % (Auto) Eos % (Auto) Baso % (Auto) Lymph # (Auto) [place] # (Auto) Eos # (Auto) Baso # (Auto) Abs Immat Gran (auto) Absolute Neuts (auto) Absolute Nucleated RBC Nucleated RBC % (auto) Smear Tech's Comments PT 13.2 H INR 1.2 H APTT 40.5 H Anion Gap Estim Creat Clear Calc Estimated GFR POC Glucose Random Glucose Calcium Magnesium Total Bilirubin Direct Bilirubin AST ALT Alkaline Phosphatase Troponin I High Sens 12.2 Total Protein Albumin Urine Color Urine Appearance Urine pH Ur Specific [place] Urine Protein Urine Glucose (UA) Urine Ketones Urine Blood Urine Nitrite Ur Leukocyte Esterase Urine Opiates Screen Urine Fentanyl Screen Ur Barbiturates Screen Ur Phencyclidine Scrn Ur Amphetamines Screen U Benzodiazepines Scrn Urine Cocaine Screen U Marijuana (THC) Screen Ethyl Alcohol < 10 COVID-19 (JAMES) [facility] [facility] 07/24/21 07/24/21 07/24/21 04:45 04:45 07:29 MCV 77.2 L MCH 23.5 L MCHC 30.4 L RDW 17.9 H Plt Count 188 MPV Not Reportable Immature Gran % (Auto) 0.2 Neut % (Auto) 46.9 Lymph % (Auto) 40.7 H [place] % (Auto) 8.5 Eos % (Auto) 3.2 Baso % (Auto) 0.5 Lymph # (Auto) 2.4 [place] # (Auto) 0.5 Eos # (Auto) 0.2 Baso # (Auto) 0.0 Abs Immat Gran (auto) 0.01 Absolute Neuts (auto) 2.8 Absolute Nucleated RBC 0.000 Nucleated RBC % (auto) 0.0 Smear Tech's Comments VERIFIED PT INR APTT Anion Gap 12 Estim Creat Clear Calc 58.7 Estimated GFR > 60 POC Glucose 74 Random Glucose 68 Calcium 8.6 Magnesium Total Bilirubin Direct Bilirubin AST ALT Alkaline Phosphatase Troponin I High Sens Total Protein Albumin Urine Color Urine Appearance Urine pH Ur Specific [place] Urine Protein Urine Glucose (UA) Urine Ketones Urine Blood Urine Nitrite Ur Leukocyte Esterase Urine Opiates Screen Urine Fentanyl Screen Ur Barbiturates Screen Ur Phencyclidine Scrn Ur Amphetamines Screen U Benzodiazepines Scrn Urine Cocaine Screen U Marijuana (THC) Screen Ethyl Alcohol COVID-19 (JAMES) [facility] 07/24/21 11:18 MCV MCH MCHC RDW Plt Count MPV Immature Gran % (Auto) Neut % (Auto) Lymph % (Auto) [place] % (Auto) Eos % (Auto) Baso % (Auto) Lymph # (Auto) [place] # (Auto) Eos # (Auto) Baso # (Auto) Abs Immat Gran (auto) Absolute Neuts (auto) Absolute Nucleated RBC Nucleated RBC % (auto) Smear Tech's Comments PT INR APTT Anion Gap Estim Creat Clear Calc Estimated GFR POC Glucose 112 Random Glucose Calcium Magnesium Total Bilirubin Direct Bilirubin AST ALT Alkaline Phosphatase Troponin I High Sens Total Protein Albumin Urine Color Urine Appearance Urine pH Ur Specific [place] Urine Protein Urine Glucose (UA) Urine Ketones Urine Blood Urine Nitrite Ur Leukocyte Esterase Urine Opiates Screen Urine Fentanyl Screen Ur Barbiturates Screen Ur Phencyclidine Scrn Ur Amphetamines Screen U Benzodiazepines Scrn Urine Cocaine Screen U Marijuana (THC) Screen Ethyl Alcohol COVID-19 (JAMES) COVID-[facility] Assessment and Plan (1) Hypertensive emergency: Status: Acute (2) Dizziness: Status: Acute (3) Generalized weakness: Status: Acute Assessment and Plan: 60-year-old female with past medical history of hypertension diabetes, Sjogren's, CVA, among others presents to the hospital with complaints of weakness, dizziness, as well as in hypertensive emergency with blood pressure systolic of 220. #Hypertensive emergency Persistent left-sided weakness, clear speech, no confusion MRI negative for any acute process, head and neck CT angiogram showed no aneurysm but has high-grade occlusion of the vertebral artery History of prior CVA with no residual received labetalol 10 mg IV as well as amlodipine p.o. in emergency room blood pressure improved to 133/60 this a.m. will continue amlodipine and home medication lisinopril Continue aspirin, statin Await neuro input Obtain PT eval, follow clinical course # Diabetes -? stable blood sugars, avoid hypoglycemia hold anti hyperglycemics, take acarbose 100 mg t.i.d. and metformin at home, -? low-dose sliding scale, diabetic diet # mild hypokalemia will replace and follow # transaminitis due to primary biliary cholangitis, stable Continue ursodiol # mood disorder continue risperidone and sertraline ?DVT prophylaxis:? Lovenox Quality Stroke Does the patient have a stroke diagnosis?: No VTE Prior VTE?: No VTE Risk Level:: Medical - moderate - high VTE Device Contraindication: Treatment Not Indicated VTE Drug Contraindication: N/A - Med Ordered
[2021-07-24] MEDS: Potassium Chloride ER 20 MEQ TAB.ER.PRT 40 MEQ PO (13:57)
[2021-07-24 15:49] VITALS: BP 138/64; PULSE 69; RESP 18; TEMP 36.9; O2SAT 99
--- NOTE | 2021-07-24 15:51 | P.CNNE_ITS ---
History of Present Illness Data of Consult Service Date: 07/24/21 Primary Care Provider: Ludy Alonso MD [facility] Reason for consult: Transient confusion, dizziness and weakness 60-year-old female with history of asthma, CVA, diabetes, hypertension, GERD, sleep apnea, gastric bypass, primary biliary cholangitis, Sjogren syndrome, subclinical hypothyroidism who presents to the hospital with dizziness, left- sided weakness, and transient confusion.?She did not recognize her daughter, she was stuttering for about 10 minutes, and then returned to her normal state of health although she was dragging her feet and felt? extremely weak.? Patient was also complaining of dizziness.? Patient herself states that she has been feeling dizzy, she has blurry vision, she is nauseous, with no vomiting, feels legs shaking, would not move, complaining of leg weakness mostly on the left, denies any arm weakness, no slurred speech, no facial droop.? Review of Systems Review of Systems: Constitutional: No Fever, No Chills ENT/Mouth: No sore throat, No Rhinorrhea, No Swallowing Difficulty Eyes: No Eye Pain, No Swelling, No Redness, +blurry vision (both eyes) Cardiovascular: No Chest Pain, No SOB, No Orthopnea, No Edema Respiratory: No Cough, No Sputum, No Wheezing, No dyspnea Gastrointestinal: No Nausea, No Vomiting, No Diarrhea, No abdominal Pain, No Hematochezia, No Melena Genitourinary: No Dysuria, No Urinary Frequency, No Hematuria, +incontinence Musculoskeletal: No joint pain, No Myalgias Skin: No Skin Lesions, No rash Neuro: + Weakness, + Numbness/tingling, No Dizziness, + Headache Psych: No Anxiety/Panic, No Depression Heme/Lymph: No Bruising, No Lymphadenopathy Endocrine: No Polyuria, No Polydipsia Yes all other systems are reviewed and are negative [facility] Past Medical History Medical History Asthma CVA (cerebral vascular accident) Diabetes type 2, uncontrolled Diabetic polyneuropathy associated with type 2 diabetes mellitus Diabetic retinopathy associated with type 2 diabetes mellitus Dyslipidemia Fatty liver disease, nonalcoholic GERD (gastroesophageal reflux disease) History of sleep apnea History of umbilical hernia HTN (hypertension) Hypertension Hypoglycemia after GI (gastrointestinal) surgery Postural hypotension Primary biliary cholangitis Sjogrens syndrome Subclinical hypothyroidism Family History Family History Father [place] (myocardial infarction) Diabetes mellitus Mother Diabetes mellitus CVA (cerebral vascular accident) Maternal Grandmother Stomach cancer Sister Hemorrhagic cerebrovascular accident (CVA) Surgical History Surgical History History of carpal tunnel release History of esophagogastroduodenoscopy (EGD) History of laparoscopic appendectomy History of partial hysterectomy Hx of section Hx of colonoscopy Hx of dilation and curettage Hx of gastric bypass Hx of tonsillectomy Social History Social History Household Members: Spouse Housing: Apartment Do you presently have visiting nurse or other home services: Yes Alcohol intake: never Patient Tobacco Use Status: Never used Tobacco e-Cigarette/Vaping Use: Never Used Second Hand Smoke Exposure: No Use of substances other than those prescribed or required for medical reasons: No Currently Displaying Signs/Symptoms of Drug Intoxication Withdrawal: No Have you been hit, kicked, punched, or otherwise hurt by someone within the past year? If so, by whom?: No Do you feel safe in your current relationship?: Yes Is there a partner from a previous relationship who is making you feel unsafe now?: No Advance Directives: No Advance Directives Information Provided: No Advance Directives Date on File: 07/10/99 Do you have thoughts of harming others: None Do you have a plan to hurt others: No Plan Recently lost weight without trying: Unsure Nutrition Risks: No Nutritional Risk Patient : No : No Poor oral hygiene: No service: No Current occupational status: retired and disabled Meds Allergies Allergy/AdvReac Type Severity Reaction Status Date / Time Latex, Natural Rubber Allergy Intermediate Rash Verified 06/21/21 11:01 Sulfa (Sulfonamide AdvReac Intermediate Stomach Verified 06/21/21 11:01 Antibiotics) Upset [SULFA (SULFONAMIDE ANTIBIOTICS)] Morphine Sulfate AdvReac Intermediate Abdominal Uncoded 06/21/21 11:01 Pain Active Medications: Current Medications Acetaminophen (Acetaminophen 325 Mg Tablet) 650 mg PO Q6H PRN PRN Reason: Pain, Mild (Pain Scale 1-3) Albuterol Sulfate (Albuterol Sulfate 90 Mcg 8 Gm Inhaler) 1 puff INHALE QID PRN PRN Reason: Shortness Of Breath Or Wheezing Amlodipine Besylate (Amlodipine Besylate 5 Mg Tablet) 5 mg PO DAILY [facility]; Protocol Last Admin: 07/24/21 09:02 Dose: 5 mg Documented by: Aspirin (Aspirin Enteric Coated 81 Mg Tablet.) 81 mg PO DAILY [facility] Last Admin: 07/24/21 09:04 Dose: 81 mg Documented by: Atorvastatin Calcium (Atorvastatin Calcium 40 Mg Tablet) 40 mg PO DAILY [facility] Last Admin: 07/24/21 09:02 Dose: 40 mg Documented by: Bisacodyl (Bisacodyl 5 Mg Tablet.) 20 mg PO ONCE [facility] Dextrose (Dextrose 50 % 25 Gm/50 Ml Syringe) 25 gm IVPUSH Q15M PRN; Protocol PRN Reason: per Hypoglycemia Standing Ord. Docusate Sodium (Docusate Sodium 100 Mg Capsule) 100 mg PO DAILY PRN PRN Reason: Constipation Enoxaparin Sodium (Enoxaparin Sodium 40 Mg/0.4 Ml Syringe) 40 mg SUBCUT Q24H [facility] Last Admin: 07/23/21 23:11 Dose: 40 mg Documented by: Fludrocortisone Acetate (Fludrocortisone Acetate 0.1 Mg Tablet) 0.05 mg PO DAILY [facility] Last Admin: 07/24/21 09:02 Dose: 0.05 mg Documented by: Glucose (Glucose Gel 15 Gm Gel..Gram.) 15 gm PO Q15M PRN; Protocol PRN Reason: per Hypoglycemia Standing Ord. Hydralazine HCl (Hydralazine Hcl 20 Mg/Ml Vial) 5 mg IVPUSH Q6H PRN; Protocol PRN Reason: abp>180 Insulin Human Lispro (Insulin Lispro 100 Unit/Ml 3 Ml Vial) 0 unit SUBCUT QIDACHS [facility]; Protocol Last Admin: 07/24/21 12:13 Dose: Not Given Documented by: Lisinopril (Lisinopril 40 Mg Tablet) 40 mg PO DAILY [facility]; Protocol Last Admin: 07/24/21 09:02 Dose: 40 mg Documented by: Multivitamins/Vitamin C (Multivitamin Tablet) 1 tab PO DAILY [facility] Last Admin: 07/24/21 09:02 Dose: 1 tab Documented by: Non-Formulary Medication (Acarbose) 100 mg PO TID [facility] Non-Formulary Medication (Ursodiol) 250 mg PO TID [facility] Ondansetron HCl (Ondansetron Hcl 4 Mg/2 Ml Vial) 4 mg IVPUSH Q8H PRN PRN Reason: Nausea and Vomiting Pharmacy Consult (Consult Rx Perform Med Rec) 1 each MISCELLANE ONCE PRN PRN Reason: Consult order Risperidone (Risperidone 1 Mg Tablet) 1 mg PO BEDTIME [facility] Last Admin: 07/23/21 23:09 Dose: 1 mg Documented by: Sertraline HCl (Sertraline Hcl 100 Mg Tablet) 200 mg PO DAILY [facility] Last Admin: 07/24/21 09:03 Dose: 200 mg Documented by: Sodium Chloride (0.9 % Sodium Chloride Flush 3 Ml Syringe) 3 ml IVFLUSH QSHIFT [facility] Last Admin: 07/24/21 09:02 Dose: 3 ml Documented by: Vitamin D (Cholecalciferol (Vitamin D3) 25 Mcg Tablet) 50 mcg PO DAILY [facility] Last Admin: 07/24/21 09:04 Dose: 50 mcg Documented by: Home Medications Medication Instructions Recorded Confirmed Last Taken Type albuterol sulfate 90 mcg/actuation 1 inh INHALATION QID PRN 04/28/20 07/23/21 Unknown History aerosol inhaler blood sugar diagnostic (FreeStyle #10 ea 04/28/20 06/21/21 Unknown History Lite Strips) fludrocortisone 0.1 mg tablet 0.05 mg PO DAILY 04/28/20 07/23/21 07/23/21 History lancets 28 gauge (FreeStyle #100 ea 04/28/20 06/21/21 Unknown History Lancets) sertraline 100 mg tablet 200 mg PO DAILY tab 04/28/20 07/23/21 07/23/21 History multivitamin 1 tab PO DAILY 07/23/21 07/23/21 07/23/21 History Physical Exam Vital Signs: Vital Signs: Last Vital Signs Temp 97.1 F 07/24/21 11:18 Pulse 65 07/24/21 11:18 Resp 18 07/24/21 11:18 BP 126/62 07/24/21 11:18 Pulse Ox 95 07/24/21 11:18 BMI result Body Mass Index 24.2 Const: General: cooperative and no acute distress Orientation/consciousness: patient oriented x3 Eyes: General: appearance normal, both eyes and all related structures Pupils: Equal, round and reactive pupils present Resp: Effort & Inspection: normal respiratory effort Auscultation: clear to auscultation bilaterally Cardio: Rate: regular rate Rhythm: regular rhythm GI: Palpation (GI): Soft to palpation Auscultation: normal bowel sounds Skin: General skin exam: no rashes or lesions noted Neuro: Other: no neurological deficits cranial nerve 2-12 intact, strength is 5/5 in all extremities General: patient oriented x3 Cranial nerves: Yes Equal, round and reactive pupils present Cognition (Neuro): normal cognition Extrem: General: Yes normal to inspection and Yes no pedal edema Results Labs CBC & Chem 7: 07/24/21 04:45 07/24/21 04:45 Labs: Short CBC 07/23/21 07/24/21 Range/Units 15:50 04:45 WBC 5.2 6.0 (4.8-10.8) X10*3/uL Hgb 11.5 L 10.2 L (12.0-16.0) g/dl Hct 37.1 33.5 L (37.0-47.0) % Plt Count 192 188 (160-400) X10*3/uL BMP 07/23/21 07/24/21 15:50 04:45 Sodium 144 143 Potassium 3.6 3.2 L Chloride 105 103 Carbon Dioxide 32 H 31 H BUN 12 13 Creatinine 0.73 0.78 Calcium 8.8 8.6 Liver Function 07/23/21 Range/Units 15:50 Total Bilirubin 0.3 (0.0-1.0) mg/dL Direct Bilirubin 0.2 (0.0-0.5) mg/dL AST 83 H (5-31) U/L ALT 68 H (0-31) U/L Alkaline Phosphatase 335 H (39-117) U/L Albumin 3.4 L (3.5-5.0) g/dL Urine 07/23/21 Range/Units 15:45 Urine Color STRAW Urine Appearance CLEAR Urine pH 7.5 (5.0-8.0) Ur Specific [place] 1.020 (1.005-1.025) Urine Protein NEG (NEG-TRACE) MG/DL Urine Glucose (UA) NEG (NEG) MG/DL Assessment and Plan (1) Hypertensive emergency: Status: Acute No evidence of acute stroke on MRI or clinical exam. Diffuse small vessel disease with multiple bilateral old lacunar strokes including brain stem. Recom. BP control. CTA shows no occlusicve disease in neck or head. Narrowing of one vertebral origin of no clinical significance (2) Dizziness: Status: Acute probably related to HBP. (3) Generalized weakness: Status: Acute 60-year-old female with past medical history of hypertension diabetes, Sjogren's, CVA, among others presents to the hospital with complaints of weakness, dizziness, as well as in hypertensive emergency with blood pressure systolic of 220. #Hypertensive emergency Persistent left-sided weakness, clear speech, no confusion MRI negative for any acute process, head and neck CT angiogram showed no aneurysm but has high-grade occlusion of the vertebral artery History of prior CVA with no residual received labetalol 10 mg IV as well as amlodipine p.o. in emergency room blood pressure improved to 133/60 this a.m. will continue amlodipine and home medication lisinopril Continue aspirin, statin Await neuro input Obtain PT eval, follow clinical course # Diabetes -? stable blood sugars, avoid hypoglycemia hold anti hyperglycemics, take acarbose 100 mg t.i.d. and metformin at home, -? low-dose sliding scale, diabetic diet # mild hypokalemia will replace and follow # transaminitis due to primary biliary cholangitis, stable Continue ursodiol # mood disorder continue risperidone and sertraline ?DVT prophylaxis:? Lovenox Procedures Date of Service Date of Service: 07/24/21
[2021-07-24 16:38] LABS: Glucose, Whole Blood 179 mg/dL (60-115)
[2021-07-24] MEDS: Insulin Lispro 100 UNIT/ML 3 ML VIAL SUBCUT ×2 (16:56→20:23)
[2021-07-24 19:59] VITALS: BP 166/73; PULSE 80; RESP 18; TEMP 36.2; O2SAT 98
[2021-07-24 20:16] LABS: Glucose, Whole Blood 220 mg/dL (60-115)
[2021-07-24] MEDS: risperiDONE 1 MG TABLET PO (20:23)
[2021-07-24 23:49] VITALS: BP 151/67; PULSE 69; RESP 17; TEMP 36.3; O2SAT 97
[2021-07-25] MEDS: 0.9 % Sodium Chloride Flush 3 ML SYRINGE IVFLUSH ×4 (02:56→20:23)
[2021-07-25 04:00] VITALS: BP 130/72; PULSE 65; RESP 17; TEMP 36.4; O2SAT 94
[2021-07-25 06:41] LABS: Anion Gap 10 (12-20); Blood Urea Nitrogen 22 mg/dL (9-16); Calcium 8.6 mg/dL (8.4-10.2); Carbon Dioxide 29 mmol/L (22-29); Chloride 106 mmol/L (96-108); Estimated Glomerular Filt Rate > 60; Glucose Random 129 mg/dL (60-115); Potassium 3.8 mmol/L (3.3-5.1); Sodium 141 mmol/L (135-145)
[2021-07-25 07:08] VITALS: BP 168/76; PULSE 62; RESP 18; TEMP 36.3; O2SAT 95
[2021-07-25 07:26] LABS: Glucose, Whole Blood 113 mg/dL (60-115)
[2021-07-25] MEDS: amLODIPine Besylate 5 MG TABLET PO (08:20)
[2021-07-25] MEDS: Cholecalciferol (Vitamin D3) 25 MCG TABLET 50 MCG PO (08:20)
[2021-07-25] MEDS: Fludrocortisone Acetate 0.1 MG TABLET 0.05 MG PO (08:21)
[2021-07-25] MEDS: Aspirin Enteric Coated 81 MG TABLET.DR PO (08:21)
[2021-07-25] MEDS: lisinopriL 40 MG TABLET PO (08:21)
[2021-07-25] MEDS: Sertraline HCL 100 MG TABLET 200 MG PO (08:21)
[2021-07-25] MEDS: Atorvastatin Calcium 40 MG TABLET PO (08:22)
[2021-07-25] MEDS: Multivitamin TABLET 1 TAB PO (08:22)
--- NOTE | 2021-07-25 08:41 | MHC.CM.PN ---
EMR REVIEWED, CM MET W/PT WHO REPORTS SHE LIVES W/HER , PT REPORTS HAVING A WHEELED WALKER AND A CPAP HOWEVER DOES NOT HAVE ALL SUPPLIES FOR CPAP SO HAS NOT USED IT, PT UNABLE TO RECALL NAME OF COMPANY THAT PROVIDED HER CPAP, PT ALSO REPORTS HER DTR IS HER WOUND CARE TECHNICIAN AND COMES DAILY IN THE AFTERNOON, PT IS OPEN TO [facility] SERVICES IF RECOMMENDED AND HAS HAD THEM IN THE PAST HOWEVER SERVICE ENDED, PT HAS NO PREFERENCE OF WHICH COMPANY, PT REPORTS RECEIVING TWO PFIZER VACCINES AND HAS NOT HAD THE BOOSTER, PT REPORTS HER /DTR ARE HER HCP'S AND COPY HAS BEEN REQUESTED. D/C PLAN: HOME W/RESUMP OF DAILY [facility] VS WOUND CARE TECHNICIAN AND NEW [facility], FAMILY FOR TRANSPORT.
[2021-07-25 11:21] VITALS: BP 154/72; PULSE 64; RESP 18; TEMP 36.5; O2SAT 95
[2021-07-25 11:46] LABS: Glucose, Whole Blood 334 mg/dL (60-115)
[2021-07-25] MEDS: Insulin Lispro 100 UNIT/ML 3 ML VIAL SUBCUT ×3 (12:09→20:23)
--- NOTE | 2021-07-25 12:22 | HO.PM.IMPN ---
Subjective Subjective Date of Service: 07/25/21 Interval History: History obtained via director of primary, complaining of left-sided weakness starting from left shoulder to leg, tolerating diet,no nausea, no vomiting, no acute issues overnight. Review of Systems Review of Systems: Yes all other systems are reviewed and are negative Physical Exam Vital Signs: Vital Signs: Last Vital Signs Temp 97.7 F 07/25/21 11:21 Pulse 64 07/25/21 11:21 Resp 18 07/25/21 11:21 BP 154/72 H 07/25/21 11:21 Pulse Ox 95 07/25/21 11:21 BMI result Body Mass Index 24.2 General resting comfortably in no acute distress.? Neck supple no JVD. CVS? regular rate rhythm, Respiratory lungs clear to auscultation, no respiratory distress, no wheeze, no rhonchi. Gastrointestinal abdomen soft, nontender, bowel sounds audible Extremities no edema. Neuro awake alert x3, speech clear, cranial nerve 2-12 intact, motor examination fluctuate, initially unable to put weight on left leg, later started dragging left leg and ambulated with walker Skin no rash Psych appropriate affect Objective Data Active Medications Acetaminophen (Acetaminophen 325 Mg Tablet) 650 mg PO Q6H PRN PRN Reason: Pain, Mild (Pain Scale 1-3) Albuterol Sulfate (Albuterol Sulfate 90 Mcg 8 Gm Inhaler) 1 puff INHALE QID PRN PRN Reason: Shortness Of Breath Or Wheezing Amlodipine Besylate (Amlodipine Besylate 5 Mg Tablet) 5 mg PO DAILY [facility]; Protocol Last Admin: 07/25/21 08:20 Dose: 5 mg Documented by: COTEMA Aspirin (Aspirin Enteric Coated 81 Mg Tablet.) 81 mg PO DAILY [facility] Last Admin: 07/25/21 08:21 Dose: 81 mg Documented by: COTEMA Atorvastatin Calcium (Atorvastatin Calcium 40 Mg Tablet) 40 mg PO DAILY [facility] Last Admin: 07/25/21 08:22 Dose: 40 mg Documented by: COTEMA Bisacodyl (Bisacodyl 5 Mg Tablet.) 20 mg PO ONCE [facility] Dextrose (Dextrose 50 % 25 Gm/50 Ml Syringe) 25 gm IVPUSH Q15M PRN; Protocol PRN Reason: per Hypoglycemia Standing Ord. Docusate Sodium (Docusate Sodium 100 Mg Capsule) 100 mg PO DAILY PRN PRN Reason: Constipation Enoxaparin Sodium (Enoxaparin Sodium 40 Mg/0.4 Ml Syringe) 40 mg SUBCUT Q24H [facility] Last Admin: 07/25/21 01:04 Dose: Not Given Documented by: DAVID Non-Admin Reason: Patient Refused Fludrocortisone Acetate (Fludrocortisone Acetate 0.1 Mg Tablet) 0.05 mg PO DAILY [facility] Last Admin: 07/25/21 08:21 Dose: 0.05 mg Documented by: LEANNAEMA Glucose (Glucose Gel 15 Gm Gel..Gram.) 15 gm PO Q15M PRN; Protocol PRN Reason: per Hypoglycemia Standing Ord. Hydralazine HCl (Hydralazine Hcl 20 Mg/Ml Vial) 5 mg IVPUSH Q6H PRN; Protocol PRN Reason: abp>180 Insulin Human Lispro (Insulin Lispro 100 Unit/Ml 3 Ml Vial) 0 unit SUBCUT QIDACHS [facility]; Protocol Last Admin: 07/25/21 12:09 Dose: 8 unit Documented by: LEANNAEMA Lisinopril (Lisinopril 40 Mg Tablet) 40 mg PO DAILY [facility]; Protocol Last Admin: 07/25/21 08:21 Dose: 40 mg Documented by: BEBETO Multivitamins/Vitamin C (Multivitamin Tablet) 1 tab PO DAILY [facility] Last Admin: 07/25/21 08:22 Dose: 1 tab Documented by: BEBETO Non-Formulary Medication (Acarbose) 100 mg PO TID [facility] Non-Formulary Medication (Ursodiol) 250 mg PO TID [facility] Ondansetron HCl (Ondansetron Hcl 4 Mg/2 Ml Vial) 4 mg IVPUSH Q8H PRN PRN Reason: Nausea and Vomiting Pharmacy Consult (Consult Rx Perform Med Rec) 1 each MISCELLANE ONCE PRN PRN Reason: Consult order Risperidone (Risperidone 1 Mg Tablet) 1 mg PO BEDTIME [facility] Last Admin: 07/24/21 20:23 Dose: 1 mg Documented by: DAVID Sertraline HCl (Sertraline Hcl 100 Mg Tablet) 200 mg PO DAILY [facility] Last Admin: 07/25/21 08:21 Dose: 200 mg Documented by: LEANNAEMA Sodium Chloride (0.9 % Sodium Chloride Flush 3 Ml Syringe) 3 ml IVFLUSH QSHIFT [facility] Last Admin: 07/25/21 08:22 Dose: 3 ml Documented by: BEBETO Vitamin D (Cholecalciferol (Vitamin D3) 25 Mcg Tablet) 50 mcg PO DAILY [facility] Last Admin: 07/25/21 08:20 Dose: 50 mcg Documented by: BEBETO Labs CBC & Chem 7: 07/24/21 04:45 07/25/21 05:39 Labs: Laboratory Results - last 24 hr 07/24/21 07/24/21 07/25/21 15:51 20:02 05:39 Anion Gap 10 L Estim Creat Clear Calc 58.0 Estimated GFR > 60 POC Glucose 179 H 220 H Random Glucose 129 H Calcium 8.6 07/25/21 07/25/21 07:13 11:24 Anion Gap Estim Creat Clear Calc Estimated GFR POC Glucose 113 334 H Random Glucose Calcium Assessment and Plan (1) Hypertensive emergency: Status: Acute (2) Dizziness: Status: Acute (3) Generalized weakness: Status: Acute (4) Dyslipidemia: Status: Acute (5) Diabetes type 2, uncontrolled: Status: Acute Assessment and Plan: 60-year-old female with past medical history of hypertension diabetes, Sjogren's, CVA, among others presents to the hospital with complaints of weakness, dizziness, as well as in hypertensive emergency with blood pressure systolic of 220. #Hypertensive emergency ? Blood pressure better controlled c/o left-sided weakness, clear speech, no confusion ? MRI negative for any acute process, head and neck CT angiogram showed no aneurysm but has high-grade occlusion of the vertebral artery ? History of prior CVA with initial some left-sided weakness, never finished physical therapy due to elevated blood pressures ? will continue amlodipine and home medication lisinopril ? Continue aspirin, statin ? Seen by neurologist they recommend better blood pressure control, feels patient has no new CVA PT eval pending/neuro examination fluctuating ? spoke with patient's daughter healthcare proxy she requesting patient to be transferred to [facility] informed her that patient can be discharged and can be taken to ED if she wants Otherwise there is no acute reason for transfer by us Patient on Florinef by Nephrology, obtain the consult for reason to continue Florinef # Diabetes -? stable blood sugars, avoid hypoglycemia hold anti hyperglycemics, take acarbose 100 mg t.i.d. and metformin at home, -? low-dose sliding scale, diabetic diet # mild hypokalemia repleted # transaminitis due to primary biliary cholangitis, stable ?? Continue ursodiol # mood disorder continue risperidone and sertraline ?DVT prophylaxis:? Lovenox Quality Stroke Does the patient have a stroke diagnosis?: No VTE Prior VTE?: No VTE Risk Level:: Medical - moderate - high VTE Device Contraindication: Treatment Not Indicated VTE Drug Contraindication: N/A - Med Ordered
[2021-07-25 15:39] VITALS: BP 148/65; PULSE 68; RESP 18; TEMP 37; O2SAT 97
[2021-07-25 15:49] LABS: Glucose, Whole Blood 177 mg/dL (60-115)
--- NOTE | 2021-07-25 17:00 | PM.CNNEP ---
History of Present Illness Reason for Consult Consult date: 07/25/21 Reason for consult: Need for Flourinef Chief Complaint Chief complaint: stroke History of Present Illness Narrative: 60 yr old woman with DM, Obesity, gastric bypass,and h/o hypotension requiring Midodrine and later Flourinef, without ADRENAL insufficiency Comes with left sides weakness and severe HTN Consult requested about the need for FLourinef Review of Systems Review of Systems Constitutional: No Fever, No Chills ENT/Mouth: No sore throat, No Rhinorrhea, No Swallowing Difficulty Eyes: No Eye Pain, No Swelling, No Redness, +blurry vision (both eyes) Cardiovascular: No Chest Pain, No SOB, No Orthopnea, No Edema Respiratory: No Cough, No Sputum, No Wheezing, No dyspnea Gastrointestinal: No Nausea, No Vomiting, No Diarrhea, No abdominal Pain, No Hematochezia, No Melena Genitourinary: No Dysuria, No Urinary Frequency, No Hematuria, +incontinence Musculoskeletal: No joint pain, No Myalgias Skin: No Skin Lesions, No rash Neuro: + Weakness, + Numbness/tingling, No Dizziness, + Headache Psych: No Anxiety/Panic, No Depression Heme/Lymph: No Bruising, No Lymphadenopathy Endocrine: No Polyuria, No Polydipsia Yes all other systems are reviewed and are negative [facility] Past Medical History Medical History Asthma CVA (cerebral vascular accident) Diabetes type 2, uncontrolled Diabetic polyneuropathy associated with type 2 diabetes mellitus Diabetic retinopathy associated with type 2 diabetes mellitus Dyslipidemia Fatty liver disease, nonalcoholic GERD (gastroesophageal reflux disease) History of sleep apnea History of umbilical hernia HTN (hypertension) Hypertension Hypoglycemia after GI (gastrointestinal) surgery Postural hypotension Primary biliary cholangitis Sjogrens syndrome Subclinical hypothyroidism Family History Family History Father CT (myocardial infarction) Diabetes mellitus Mother Diabetes mellitus CVA (cerebral vascular accident) Maternal Grandmother Stomach cancer Sister Hemorrhagic cerebrovascular accident (CVA) Surgical History Surgical History History of carpal tunnel release History of esophagogastroduodenoscopy (EGD) History of laparoscopic appendectomy History of partial hysterectomy Hx of section Hx of colonoscopy Hx of dilation and curettage Hx of gastric bypass Hx of tonsillectomy Social History Social History Household Members: Spouse Housing: Apartment Do you presently have visiting nurse or other home services: Yes Alcohol intake: never Patient Tobacco Use Status: Never used Tobacco e-Cigarette/Vaping Use: Never Used Second Hand Smoke Exposure: No Use of substances other than those prescribed or required for medical reasons: No Currently Displaying Signs/Symptoms of Drug Intoxication Withdrawal: No Have you been hit, kicked, punched, or otherwise hurt by someone within the past year? If so, by whom?: No Do you feel safe in your current relationship?: Yes Is there a partner from a previous relationship who is making you feel unsafe now?: No Advance Directives: No Advance Directives Information Provided: No Advance Directives Date on File: 07/10/99 Do you have thoughts of harming others: None Do you have a plan to hurt others: No Plan Recently lost weight without trying: Unsure Nutrition Risks: No Nutritional Risk Patient : No : No Poor oral hygiene: No service: No Current occupational status: retired and disabled Meds Allergies Allergy/AdvReac Type Severity Reaction Status Date / Time Latex, Natural Rubber Allergy Intermediate Rash Verified 06/21/21 11:01 Sulfa (Sulfonamide AdvReac Intermediate Stomach Verified 06/21/21 11:01 Antibiotics) Upset [SULFA (SULFONAMIDE ANTIBIOTICS)] Morphine Sulfate AdvReac Intermediate Abdominal Uncoded 06/21/21 11:01 Pain Active Medications: Current Medications Acetaminophen (Acetaminophen 325 Mg Tablet) 650 mg PO Q6H PRN PRN Reason: Pain, Mild (Pain Scale 1-3) Albuterol Sulfate (Albuterol Sulfate 90 Mcg 8 Gm Inhaler) 1 puff INHALE QID PRN PRN Reason: Shortness Of Breath Or Wheezing Amlodipine Besylate (Amlodipine Besylate 5 Mg Tablet) 5 mg PO DAILY [facility]; Protocol Last Admin: 07/25/21 08:20 Dose: 5 mg Documented by: Aspirin (Aspirin Enteric Coated 81 Mg Tablet.) 81 mg PO DAILY [facility] Last Admin: 07/25/21 08:21 Dose: 81 mg Documented by: Atorvastatin Calcium (Atorvastatin Calcium 40 Mg Tablet) 40 mg PO DAILY [facility] Last Admin: 07/25/21 08:22 Dose: 40 mg Documented by: Bisacodyl (Bisacodyl 5 Mg Tablet.) 20 mg PO ONCE [facility] Dextrose (Dextrose 50 % 25 Gm/50 Ml Syringe) 25 gm IVPUSH Q15M PRN; Protocol PRN Reason: per Hypoglycemia Standing Ord. Docusate Sodium (Docusate Sodium 100 Mg Capsule) 100 mg PO DAILY PRN PRN Reason: Constipation Enoxaparin Sodium (Enoxaparin Sodium 40 Mg/0.4 Ml Syringe) 40 mg SUBCUT Q24H [facility] Last Admin: 07/25/21 01:04 Dose: Not Given Documented by: Fludrocortisone Acetate (Fludrocortisone Acetate 0.1 Mg Tablet) 0.05 mg PO DAILY [facility] Last Admin: 07/25/21 08:21 Dose: 0.05 mg Documented by: Glucose (Glucose Gel 15 Gm Gel..Gram.) 15 gm PO Q15M PRN; Protocol PRN Reason: per Hypoglycemia Standing Ord. Hydralazine HCl (Hydralazine Hcl 20 Mg/Ml Vial) 5 mg IVPUSH Q6H PRN; Protocol PRN Reason: abp>180 Insulin Human Lispro (Insulin Lispro 100 Unit/Ml 3 Ml Vial) 0 unit SUBCUT QIDACHS [facility]; Protocol Last Admin: 07/25/21 16:28 Dose: 2 unit Documented by: Lisinopril (Lisinopril 40 Mg Tablet) 40 mg PO DAILY [facility]; Protocol Last Admin: 07/25/21 08:21 Dose: 40 mg Documented by: Multivitamins/Vitamin C (Multivitamin Tablet) 1 tab PO DAILY [facility] Last Admin: 07/25/21 08:22 Dose: 1 tab Documented by: Non-Formulary Medication (Acarbose) 100 mg PO TID [facility] Non-Formulary Medication (Ursodiol) 250 mg PO TID [facility] Ondansetron HCl (Ondansetron Hcl 4 Mg/2 Ml Vial) 4 mg IVPUSH Q8H PRN PRN Reason: Nausea and Vomiting Pharmacy Consult (Consult Rx Perform Med Rec) 1 each MISCELLANE ONCE PRN PRN Reason: Consult order Risperidone (Risperidone 1 Mg Tablet) 1 mg PO BEDTIME [facility] Last Admin: 07/24/21 20:23 Dose: 1 mg Documented by: Sertraline HCl (Sertraline Hcl 100 Mg Tablet) 200 mg PO DAILY [facility] Last Admin: 07/25/21 08:21 Dose: 200 mg Documented by: Sodium Chloride (0.9 % Sodium Chloride Flush 3 Ml Syringe) 3 ml IVFLUSH QSHIFT [facility] Last Admin: 07/25/21 16:28 Dose: 3 ml Documented by: Vitamin D (Cholecalciferol (Vitamin D3) 25 Mcg Tablet) 50 mcg PO DAILY [facility] Last Admin: 07/25/21 08:20 Dose: 50 mcg Documented by: Home Medications Medication Instructions Recorded Confirmed Last Taken Type albuterol sulfate 90 mcg/actuation 1 inh INHALATION QID PRN 04/28/20 07/23/21 Unknown History aerosol inhaler blood sugar diagnostic (FreeStyle #10 ea 04/28/20 06/21/21 Unknown History Lite Strips) fludrocortisone 0.1 mg tablet 0.05 mg PO DAILY 04/28/20 07/23/21 07/23/21 History lancets 28 gauge (FreeStyle #100 ea 04/28/20 06/21/21 Unknown History Lancets) sertraline 100 mg tablet 200 mg PO DAILY tab 04/28/20 07/23/21 07/23/21 History multivitamin 1 tab PO DAILY 07/23/21 07/23/21 07/23/21 History Physical Exam Vital Signs: Last Vital Signs Temp 98.6 F 07/25/21 15:39 Pulse 68 07/25/21 15:39 Resp 18 07/25/21 15:39 BP 148/65 H 07/25/21 15:39 Pulse Ox 97 07/25/21 15:39 BMI result Body Mass Index 24.2 Const General: cooperative and no acute distress Orientation/consciousness: patient oriented x3 Eyes General: appearance normal, both eyes and all related structures Pupils: Equal, round and reactive pupils present Resp Effort & Inspection: normal respiratory effort Auscultation: clear to auscultation bilaterally Cardio Rate: regular rate Rhythm: regular rhythm GI Palpation (GI): Soft to palpation Auscultation: normal bowel sounds Skin General skin exam: no rashes or lesions noted Neuro Other: no neurological deficits cranial nerve 2-12 intact, strength is 5/5 in all extremities General: patient oriented x3 Cranial nerves: Yes Equal, round and reactive pupils present Cognition (Neuro): normal cognition Extrem General: Yes normal to inspection and Yes no pedal edema Results Lab Results Result Diagrams: 07/24/21 04:45 07/25/21 05:39 Lab results: Chemistry 07/23/21 07/24/21 07/25/21 15:50 04:45 05:39 Sodium 144 143 141 Potassium 3.6 3.2 L 3.8 Carbon Dioxide 32 H 31 H 29 BUN 12 13 22 H D Creatinine 0.73 0.78 0.79 Calcium 8.8 8.6 8.6 Hematology 07/23/21 07/24/21 15:50 04:45 WBC 5.2 6.0 Hgb 11.5 L 10.2 L Plt Count 192 188 Urinalysis 07/23/21 15:45 Urine Color STRAW Urine Appearance CLEAR Urine pH 7.5 Ur Specific [place] 1.020 Urine Protein NEG Urine Glucose (UA) NEG Urine Ketones NEG Urine Blood NEG Urine Nitrite NEG Ur Leukocyte Esterase NEG Assessment and Plan (1) Hypertensive emergency: Status: Acute (2) Dizziness: Status: Acute (3) Generalized weakness: Status: Acute (4) Dyslipidemia: Status: Acute (5) Diabetes type 2, uncontrolled: Status: Acute 60-year-old female with past medical history of hypertension diabetes, Sjogren's, CVA, among others presents to the hospital with complaints of weakness, dizziness, as well as in hypertensive emergency with blood pressure systolic of 220. Valerie had hypotension following bariatric surgery causing loss of vasomotor tone. No evidence of adrenal insufficieny Currently the BP is signifcantly elevated No indication for Fluorinef or Midodrinef can stop Fluorinef Optimize BP Goal SBP of 120-140 for now AVoid hypotension Shall follow along Thanks Procedures Date of Service Date of Service: 07/25/21
[2021-07-25 18:05] LABS: Cholesterol 129 mg/dL; HDL Cholesterol 47 mg/dL; LDL Cholesterol Calculated 66 mg/dl; Triglycerides 84 mg/dL
[2021-07-25 19:14] VITALS: BP 175/76; PULSE 68; RESP 18; TEMP 36.6; O2SAT 96
[2021-07-25 19:43] LABS: Glucose, Whole Blood 189 mg/dL (60-115)
[2021-07-25] MEDS: risperiDONE 1 MG TABLET PO (20:23)
[2021-07-25] MEDS: Enoxaparin Sodium 40 MG/0.4 ML SYRINGE SUBCUT (22:28)
[2021-07-26] VITALS (8 sets, daily range): BP systolic 100–186; BP diastolic 42–78; PULSE 59–81; RESP 17–20; TEMP 36–36.8; O2SAT 90–100
[2021-07-26 07:32] LABS: Glucose, Whole Blood 108 mg/dL (60-115)
[2021-07-26] MEDS: lisinopriL 40 MG TABLET PO (10:05)
[2021-07-26] MEDS: 0.9 % Sodium Chloride Flush 3 ML SYRINGE IVFLUSH ×3 (10:05→20:20)
[2021-07-26] MEDS: Aspirin Enteric Coated 81 MG TABLET.DR PO (10:05)
[2021-07-26] MEDS: Atorvastatin Calcium 40 MG TABLET PO (10:05)
[2021-07-26] MEDS: Multivitamin TABLET 1 TAB PO (10:05)
[2021-07-26] MEDS: Sertraline HCL 100 MG TABLET 200 MG PO (10:06)
[2021-07-26] MEDS: Fludrocortisone Acetate 0.1 MG TABLET 0.05 MG PO (10:06)
[2021-07-26] MEDS: Cholecalciferol (Vitamin D3) 25 MCG TABLET 50 MCG PO (10:07)
[2021-07-26] MEDS: amLODIPine Besylate 5 MG TABLET PO (10:07)
[2021-07-26 11:25] LABS: Glucose, Whole Blood 224 mg/dL (60-115)
[2021-07-26] MEDS: Insulin Lispro 100 UNIT/ML 3 ML VIAL SUBCUT ×2 (12:10→16:40)
--- NOTE | 2021-07-26 14:12 | P.PNIM_ITS ---
Subjective Subjective Date of Service: 07/26/21 Interval History: This history was taken in Italian from the patient. States prior CVA was 2+ yr ago. Ongoing LLE + LUE weakness which is new for her. Also some trouble swallowing and speaking. Review of Systems Review of Systems: Yes all other systems are reviewed and are negative Physical Exam Vital Signs: Vital Signs: Last Vital Signs Temp 97.1 F 07/26/21 11:35 Pulse 65 07/26/21 11:35 Resp 18 07/26/21 11:35 BP 172/74 H 07/26/21 11:35 Pulse Ox 94 07/26/21 11:35 BMI result Body Mass Index 24.2 Gen: in no acute distress HEENT: sclera anicteric, moist mucus membranes Neck: supple Lungs: clear to auscultation bilaterally Heart: regular rate and rhythm, no murmurs Abd: soft, non-tender, non-distended Ext: no edema Skin: warm/well-perfused Neuro: alert and oriented x3, LUE 4/5 weakness, LLE 4-/5 weakness Psych: appropriate affect Objective Data Active Medications Acetaminophen (Acetaminophen 325 Mg Tablet) 650 mg PO Q6H PRN PRN Reason: Pain, Mild (Pain Scale 1-3) Albuterol Sulfate (Albuterol Sulfate 90 Mcg 8 Gm Inhaler) 1 puff INHALE QID PRN PRN Reason: Shortness Of Breath Or Wheezing Amlodipine Besylate (Amlodipine Besylate 5 Mg Tablet) 5 mg PO DAILY [facility]; Protocol Last Admin: 07/26/21 10:07 Dose: 5 mg Documented by: ANITA Aspirin (Aspirin Enteric Coated 81 Mg Tablet.) 81 mg PO DAILY [facility] Last Admin: 07/26/21 10:05 Dose: 81 mg Documented by: ANITA Atorvastatin Calcium (Atorvastatin Calcium 40 Mg Tablet) 40 mg PO DAILY [facility] Last Admin: 07/26/21 10:05 Dose: 40 mg Documented by: ANITA Bisacodyl (Bisacodyl 5 Mg Tablet.) 20 mg PO ONCE [facility] Dextrose (Dextrose 50 % 25 Gm/50 Ml Syringe) 25 gm IVPUSH Q15M PRN; Protocol PRN Reason: per Hypoglycemia Standing Ord. Docusate Sodium (Docusate Sodium 100 Mg Capsule) 100 mg PO DAILY PRN PRN Reason: Constipation Enoxaparin Sodium (Enoxaparin Sodium 40 Mg/0.4 Ml Syringe) 40 mg SUBCUT Q24H [facility] Last Admin: 07/25/21 22:28 Dose: 40 mg Documented by: SHERI Fludrocortisone Acetate (Fludrocortisone Acetate 0.1 Mg Tablet) 0.05 mg PO DAILY [facility] Last Admin: 07/26/21 10:06 Dose: 0.05 mg Documented by: ANITA Glucose (Glucose Gel 15 Gm Gel..Gram.) 15 gm PO Q15M PRN; Protocol PRN Reason: per Hypoglycemia Standing Ord. Hydralazine HCl (Hydralazine Hcl 20 Mg/Ml Vial) 5 mg IVPUSH Q6H PRN; Protocol PRN Reason: abp>180 Insulin Human Lispro (Insulin Lispro 100 Unit/Ml 3 Ml Vial) 0 unit SUBCUT QIDACHS [facility]; Protocol Last Admin: 07/26/21 12:10 Dose: 4 unit Documented by: ANITA Lisinopril (Lisinopril 40 Mg Tablet) 40 mg PO DAILY [facility]; Protocol Last Admin: 07/26/21 10:05 Dose: 40 mg Documented by: ANITA Multivitamins/Vitamin C (Multivitamin Tablet) 1 tab PO DAILY [facility] Last Admin: 07/26/21 10:05 Dose: 1 tab Documented by: ANITA Non-Formulary Medication (Acarbose) 100 mg PO TID [facility] Non-Formulary Medication (Ursodiol) 250 mg PO TID [facility] Ondansetron HCl (Ondansetron Hcl 4 Mg/2 Ml Vial) 4 mg IVPUSH Q8H PRN PRN Reason: Nausea and Vomiting Pharmacy Consult (Consult Rx Perform Med Rec) 1 each MISCELLANE ONCE PRN PRN Reason: Consult order Risperidone (Risperidone 1 Mg Tablet) 1 mg PO BEDTIME [facility] Last Admin: 07/25/21 20:23 Dose: 1 mg Documented by: SHERI Sertraline HCl (Sertraline Hcl 100 Mg Tablet) 200 mg PO DAILY [facility] Last Admin: 07/26/21 10:06 Dose: 200 mg Documented by: ANITA Sodium Chloride (0.9 % Sodium Chloride Flush 3 Ml Syringe) 3 ml IVFLUSH QSHIFT [facility] Last Admin: 07/26/21 10:05 Dose: 3 ml Documented by: ANITA Vitamin D (Cholecalciferol (Vitamin D3) 25 Mcg Tablet) 50 mcg PO DAILY [facility] Last Admin: 07/26/21 10:07 Dose: 50 mcg Documented by: ANTIA Labs CBC & Chem 7: 07/24/21 04:45 07/25/21 05:39 Labs: Laboratory Results - last 24 hr 07/25/21 07/25/21 07/25/21 15:44 17:32 19:33 POC Glucose 177 H 189 H Triglycerides 84 Cholesterol 129 LDL Cholesterol, Calc 66 HDL Cholesterol 47 07/26/21 07/26/21 07:19 11:21 POC Glucose 108 224 H Triglycerides Cholesterol LDL Cholesterol, Calc HDL Cholesterol Assessment and Plan (1) Hypertensive emergency: Status: Acute (2) Dizziness: Status: Acute (3) Generalized weakness: Status: Acute (4) Dyslipidemia: Status: Acute (5) Diabetes type 2, uncontrolled: Status: Acute Assessment and Plan: hospital d#4 60-year-old female with past medical history of hypertension diabetes, Sjogren's , CVA, among others presents to the hospital with complaints of weakness, dizziness, as well as in hypertensive emergency with blood pressure systolic of 220. # hypertensive emergency - resolved after adding amlodipine to home lisinopril. d/c fludrocortisone as per Nephro # L-sided weakness # dysarthria # dysphagia - PT/OT/PETROGRAPHER consultations. AIR recommended by PT - MRI ruled out CVA. per Neuro no new CVA. continue secondary prevention with ASA + statin # hypoK - mild, resolved # primary biliary cholangitis - continue ursodiol # DM2 - correction-dose lispro, on acarbose + MTF at home # mood disorder - continue risperidone and sertraline # VTE ppx - LMWH # dispo - plan AIR Quality Stroke Does the patient have a stroke diagnosis?: No VTE Prior VTE?: No VTE Risk Level:: Medical - moderate - high VTE Device Contraindication: Treatment Not Indicated VTE Drug Contraindication: N/A - Med Ordered
--- NOTE | 2021-07-26 15:30 | MHC.SL.SWA ---
Speech Pathologist Impression: Risk of Aspiration Pharyngeal Dysphagia Risk of Aspiration Due to: Neurological Condition Dysphasia Diet Status: Downgrade Liquid Consistency and Strategies for Safe Swallow: Liquid Intake Recommendation: [place] Thick Liquid Intake Strategies: Small Sips No Straws Solid Food Consistency: Dietary Recommendations: Regular Additional Modifications to Solid Foods: Recommend REGULAR solids and DOWNGRADE to [place]CTAR THICK liquid (NO STRAW), with pills WHOLE in PUREE. Strict aspiration precautions apply. [employer]DI[employer]ANK[employer]AVER will continue to follow. Oral Medication Intake: Whole with Puree Compensatory Strategies and Precautions to be Taken for Safe Swallow: Sitting Upright (90 deg) No Straw Small Bites and Sips Alternate Liquids/Solids Rate of Ingestion Change Supervision While Eating and Drinking for Safe Swallow: Intermittent Supervision Swallowing Recommended Treatments: Compens. Strategy Educat. Recommendation for Speech: Inpatient Speech Therapy Comment: Overt s/s of aspiration evident when drinking thin liquids. Frequency/Duration: M-F Manual Training Teacher Clinican/Clinical Fellow: No Supervisory Statement: I have reviewed and agree with the student/clinical fellow's documentation: N/A Speech Language Pathologist: Norma Velazquez M.A., CCC-[employer]AV[employer]
[2021-07-26 16:13] LABS: Glucose, Whole Blood 207 mg/dL (60-115)
--- NOTE | 2021-07-26 18:27 | P.PNNP_ITS ---
Subjective Subjective Date of Service: 08/12/21 Interval history: Events noted Still with left sided weakness Physical Exam Verdana 4l Vital Signs: Verdana 4d Verdana 4d Vital Signs: Verdana 4d Verdana 4Bd Last Vital Signs Verdana 4d Head Strength And Conditioning Coach New 4d Head Strength And Conditioning Coach New 4d Temp 98.3 F 07/26/21 15:59 Head Strength And Conditioning Coach New 4d Pulse 76 07/26/21 15:59 Head Strength And Conditioning Coach New 4d Resp 18 07/26/21 15:59 BP 172/72 H 07/26/21 15:59 Pulse Ox 100 07/26/21 15:59 BMI result Body Mass Index 24.2 Const: General: cooperative and no acute distress Orientation/consciousness: patient oriented x3 Eyes: General: appearance normal, both eyes and all related structures Pupils: Equal, round and reactive pupils present Resp: Effort & Inspection: normal respiratory effort Auscultation: clear to auscultation bilaterally Cardio: Rate: regular rate Rhythm: regular rhythm GI: Palpation (GI): Soft to palpation Auscultation: normal bowel sounds Skin: General skin exam: no rashes or lesions noted Neuro: Other: no neurological deficits cranial nerve 2-12 intact, strength is 5/5 in all extremities General: patient oriented x3 Cranial nerves: Yes Equal, round and reactive pupils present Cognition (Neuro): normal cognition Extrem: General: Yes normal to inspection and Yes no pedal edema Objective Data Labs CBC & Chem 7: 07/24/21 04:45 07/25/21 05:39 Labs: Laboratory Results - last 24 hr 07/25/21 07/26/21 07/26/21 19:33 07:19 11:21 POC Glucose 189 H 108 224 H 07/26/21 16:01 POC Glucose 207 H Procedures Date of Service Date of Service: 08/26/21 Assessment & Plan Assessment and plan (1) Hypertensive emergency: Status: Resolved (2) Dizziness: Status: Resolved (3) Generalized weakness: Status: Resolved (4) Dyslipidemia: Status: Resolved (5) Diabetes type 2, uncontrolled: Status: Resolved Plan 60-year-old female with past medical history of hypertension diabetes, Sjogren's, CVA, among others presents to the hospital with complaints of weakness, dizziness, as well as in hypertensive emergency with blood pressure systolic of 220. Valerie had hypotension following bariatric surgery causing loss of vasomotor tone. No evidence of adrenal insufficiency Currently the BP is significantly elevated Add HYDRALAZine 25 mg Q 6 hrly and titrate dose AVOID hypotension No indication for Fluorinef or Midodrinef Stopped Fluorinef this admission Optimize BP Goal SBP of 120-140 for now AVoid hypotension She had mild Alkalosis and hypokalemia on admission Will check PA/PRA Time Spent With Patient Time: Total time spent is greater than 50% in coordination of care (as documented) at patient's floor/unit and/or counseling patient: Time with patient: 15 - 24 minutes Progress Note: Quality Stroke Does the patient have a stroke diagnosis?: No
[2021-07-26 20:18] LABS: Glucose, Whole Blood 116 mg/dL (60-115)
[2021-07-26] MEDS: risperiDONE 1 MG TABLET PO (20:20)
[2021-07-26] MEDS: hydrALAZINE HCl 25 MG TABLET PO (20:20)
[2021-07-26] MEDS: Enoxaparin Sodium 40 MG/0.4 ML SYRINGE SUBCUT (22:36)
[2021-07-27 00:07] VITALS: BP 127/57; PULSE 70; RESP 17; TEMP 36.9; O2SAT 98
[2021-07-27 04:00] VITALS: BP 144/66; PULSE 62; RESP 17; TEMP 36.4; O2SAT 94
[2021-07-27 07:36] LABS: Glucose, Whole Blood 106 mg/dL (60-115)
[2021-07-27 08:00] VITALS: BP 182/83; PULSE 66; RESP 18; TEMP 36.5; O2SAT 96
[2021-07-27] MEDS: amLODIPine Besylate 5 MG TABLET PO ×2 (08:28→12:06)
[2021-07-27] MEDS: Atorvastatin Calcium 40 MG TABLET PO (08:28)
[2021-07-27] MEDS: 0.9 % Sodium Chloride Flush 3 ML SYRINGE IVFLUSH (08:28)
[2021-07-27] MEDS: Sertraline HCL 100 MG TABLET 200 MG PO (08:28)
[2021-07-27] MEDS: Multivitamin TABLET 1 TAB PO (08:28)
[2021-07-27] MEDS: lisinopriL 40 MG TABLET PO (08:29)
[2021-07-27] MEDS: Aspirin Enteric Coated 81 MG TABLET.DR PO (08:29)
[2021-07-27] MEDS: Cholecalciferol (Vitamin D3) 25 MCG TABLET 50 MCG PO (08:29)
[2021-07-27] MEDS: hydrALAZINE HCl 25 MG TABLET PO ×2 (08:29→12:28)
[2021-07-27 09:08] VITALS: BP 182/83; PULSE 66; O2SAT 96
--- NOTE | 2021-07-27 10:42 | PM.PNNEP ---
Subjective Subjective Date of Service: 07/27/21 Principal diagnosis: HTN emergency Interval history: Seenad exaiend; Events noted Physical Exam Vital Signs: Vital Signs: Last Vital Signs Temp 97.7 F 07/27/21 08:00 Pulse 66 07/27/21 09:08 Resp 18 07/27/21 08:00 BP 182/83 H 07/27/21 09:08 Pulse Ox 96 07/27/21 09:08 BMI result Body Mass Index 24.2 Const: General: cooperative and no acute distress Orientation/consciousness: patient oriented x3 Eyes: General: appearance normal, both eyes and all related structures Pupils: Equal, round and reactive pupils present Resp: Effort & Inspection: normal respiratory effort Auscultation: clear to auscultation bilaterally Cardio: Rate: regular rate Rhythm: regular rhythm GI: Palpation (GI): Soft to palpation Auscultation: normal bowel sounds Skin: General skin exam: no rashes or lesions noted Neuro: Other: no neurological deficits cranial nerve 2-12 intact, strength is 5/5 in all extremities General: patient oriented x3 Cranial nerves: Yes Equal, round and reactive pupils present Cognition (Neuro): normal cognition Extrem: General: Yes normal to inspection and Yes no pedal edema Objective Data Labs CBC & Chem 7: 07/24/21 04:45 07/25/21 05:39 Labs: Laboratory Results - last 24 hr 07/26/21 07/26/21 07/26/21 11:21 16:01 19:37 POC Glucose 224 H 207 H 116 H 07/27/21 07:28 POC Glucose 106 Procedures Date of Service Date of Service: 07/27/21 Assessment & Plan Assessment and plan (1) Hypertensive emergency: Status: Acute (2) Dizziness: Status: Acute (3) Generalized weakness: Status: Acute (4) Dyslipidemia: Status: Acute (5) Diabetes type 2, uncontrolled: Status: Acute Assessment and Plan: 60-year-old female with past medical history of hypertension diabetes, Sjogren's, CVA, among others presents to the hospital with complaints of weakness, dizziness, as well as in hypertensive emergency with blood pressure systolic of 220. 1. HTN emergency: ques in part d/t and ; BP remains elevated but improving 2. Neuroo changes: ques back to bsl REC: repeat renal labs; incr norvasc to 10 qd; doppler of renals; avoid midrdine and florinef Time Spent With Patient Time: Total time spent is greater than 50% in coordination of care (as documented) at patient's floor/unit and/or counseling patient: Progress Note: Quality Stroke Does the patient have a stroke diagnosis?: No
[2021-07-27 11:36] LABS: COVID-19 Test Negative (Negative)
[2021-07-27 11:46] VITALS: BP 163/71; PULSE 73; RESP 16; TEMP 36.6; O2SAT 95
[2021-07-27 11:49] LABS: Glucose, Whole Blood 221 mg/dL (60-115)
[2021-07-27] MEDS: Insulin Lispro 100 UNIT/ML 3 ML VIAL SUBCUT ×2 (12:06→16:24)
--- NOTE | 2021-07-27 13:59 | MHC.CM.PN ---
Patient has been medically cleared for dc to Acute [facility] today. Patient will dc to [facility] today at 4PM, via [facility]. Patient/Daughter/Maddie @ [phone] are aware of and in agreement with the dc plan.
--- NOTE | 2021-07-27 14:05 | PM.DS ---
DS: Providers Provider Date of Service: 07/27/21 Date of admission: 07/23/21 21:44 Primary care physician: Ludy Alonso MD Admitting clinician: Mara Mary Consults: 07/24/21 05:57 Consult to Neurology Routine Consulting Provider: [facility] Reason for consultation: dizziness, weakness, vertebral artery stenosis Has provider been notified: No 07/25/21 07:51 Consult to Nephrology Routine Consulting Provider: Romain Skaggs Reason for consultation: need for florinef Has provider been notified: No Attending physician on discharge: Ava Potts DS: Diagnosis Discharge Diagnosis (1) Hypertensive emergency: Status: Acute (2) Chronic cerebrovascular accident (CVA): Status: Acute (3) Left-sided weakness: Status: Acute (4) Dysphagia: Status: Acute DS: Summary Hospital Course Hospital Course: From admission H+P, 07/23/21: [place]-speaking only, history is obtained with the help of commercial account officer ?this is a 60-year-old female with past medical history of asthma, CVA, diabetes, hypertension, GERD, sleep apnea, gastric bypass, primary biliary cholangitis, Sjogren syndrome, subclinical hypothyroidism who presents to the hospital with ? Multiple symptoms including dizziness, left-sided weakness, and transient confusion.? According to the daughter patient went to the bathroom, stood in the bathroom, Peed herself, appear to not recognize her daughter, she was stuttering in the distance, this lasted about 10 minutes, and patient returned to her normal state of health although she was dragging her feet and felt? extremely weak.? Patient was also complaining of dizziness.? Patient herself states that she has been feeling dizzy, she has blurry vision, she is nauseous, with no vomiting, feels legs shaking, would not move, complaining of leg weakness mostly on the left, denies any arm weakness, no slurred speech, no facial droop.? Patient denies any fever or chills, no chest pain, no palpitations, no abdominal pain, no diarrhea constipation, no urinary symptoms and no swelling in her legs.? On arrival to the ED patient hemodynamically stable with? systolic blood pressure of 220 patient was treated with Norvasc and 10 mg of IV labetalol with blood pressure improving. ?labs are significant for WBC count of 5.2, hemoglobin of 11.5 which is around her baseline, hematocrit 37.1, AST of 83, ALT of 60, alk-phos of 335 which is around her baseline, UA negative, UDS negative, COVID-19 negative.? ?head and neck CT angiogram shows no occlusion or hemodynamically significant stenosis within the intracranial or extracranial arterial vasculature, high-grade focal stenosis at the origin of the right vertebral artery, multifocal chronic lacunar infarct as described.? Brain MRI showedc no acute intracranial process.? Numerous scattered chronic lacunar infarcts in the liana, right thalamus, right frontal periventricular white matter and right retrolenticular capsule. ?patient will be admitted for observation This 60-year-old female with past medical history of hypertension diabetes, Sjogren's, and prior CVA presented to the hospital with complaints of worsening left-sided weakness, dizziness, as well as in hypertensive emergency with blood pressure systolic of 220. Also noted to have dysphagia. Hypertensive emergency resolved after adding amlodipine and hydralazine to home lisinopril; fludrocortisone was discontinued. She was noted to have left-sided weakness with some dysarthria and dysphagia, but MRI was negative for acute stroke. There was evidence of chronic microvascular disease as well as prior strokes. She was seen by PT, OT, and ELECTRIC MILKERS INSTALLER, and acute inaptient rehabilitation was recommended. Jay-thick liquids were recommended. Secondary prevention with aspirin and high-intensity statin was continued. She should follow up with Nephrology and Neurology as an outpatient. She was discharged to [facility] for [facility]. Time Spent with Patient Time attestation: Total time spent providing and/or coordinating discharge services: Discharge coordination time: Greater than 30 minutes Quality: Stroke Does the patient have a stroke diagnosis?: No Physical Exam Vital Signs: Vital Signs: Last Vital Signs Temp 97.8 F 07/27/21 11:46 Pulse 73 07/27/21 11:46 Resp 16 07/27/21 11:46 BP 163/71 H 07/27/21 11:46 Pulse Ox 95 07/27/21 11:46 BMI result Body Mass Index 24.2 Gen: in no acute distress HEENT: sclera anicteric, moist mucus membranes Neck: supple Lungs: clear to auscultation bilaterally Heart: regular rate and rhythm, no murmurs Abd: soft, non-tender, non-distended Ext: no edema Skin: warm/well-perfused Neuro: alert and oriented x3, LUE 4/5 weakness, LLE 4-/5 weakness Psych: appropriate affect DS: Data Data Completed and Pending Completed studies during hospitalization [Text1]: Laboratory Results WBC 6.0 X10*3/uL (4.8-10.8) 07/24/21 04:45 RBC 4.34 X10*6/uL (4.20-5.50) 07/24/21 04:45 Hgb 10.2 g/dl (12.0-16.0) L 07/24/21 04:45 Hct 33.5 % (37.0-47.0) L 07/24/21 04:45 MCV 77.2 fL (80.0-98.0) L 07/24/21 04:45 MCH 23.5 pg (27.0-33.0) L 07/24/21 04:45 MCHC 30.4 g/dl (31.0-35.0) L 07/24/21 04:45 RDW 17.9 % (11.0-16.0) H 07/24/21 04:45 Plt Count 188 X10*3/uL (160-400) 07/24/21 04:45 MPV Not Reportable 07/24/21 04:45 Immature Gran % (Auto) 0.2 % (0.0-0.4) 07/24/21 04:45 Neut % (Auto) 46.9 % (45-73) 07/24/21 04:45 Lymph % (Auto) 40.7 % (20-40) H 07/24/21 04:45 Emanuel % (Auto) 8.5 % (2-11) 07/24/21 04:45 Eos % (Auto) 3.2 % (0-4) 07/24/21 04:45 Baso % (Auto) 0.5 % (0-2) 07/24/21 04:45 Lymph # (Auto) 2.4 X10*3/uL (1.2-4.9) 07/24/21 04:45 Emanuel # (Auto) 0.5 X10*3/uL (0.1-1.2) 07/24/21 04:45 Eos # (Auto) 0.2 X10*3/uL (0.0-0.4) 07/24/21 04:45 Baso # (Auto) 0.0 X10*3/uL (0.0-0.2) 07/24/21 04:45 Abs Immat Gran (auto) 0.01 X10*3/uL (0.00-0.03) 07/24/21 04:45 Absolute Neuts (auto) 2.8 x10*3/uL (2.0-8.3) 07/24/21 04:45 Absolute Nucleated RBC 0.000 X10*3/uL (0.0-0.012) 07/24/21 04:45 Nucleated RBC % (auto) 0.0 /100WBC (0.0-0.2) 07/24/21 04:45 Smear Tech's Comments VERIFIED 07/24/21 04:45 PT 13.2 SEC (9.9-13.0) H 07/23/21 15:50 INR 1.2 (0.9-1.1) H 07/23/21 15:50 APTT 40.5 SEC (24.1-38.0) H 07/23/21 15:50 Sodium 141 mmol/L (135-145) 07/25/21 05:39 Potassium 3.8 mmol/L (3.3-5.1) 07/25/21 05:39 Chloride 106 mmol/L (96-108) 07/25/21 05:39 Carbon Dioxide 29 mmol/L (22-29) 07/25/21 05:39 Anion Gap 10 (12-20) L 07/25/21 05:39 BUN 22 mg/dL (9-16) H D 07/25/21 05:39 Creatinine 0.79 mg/dL (0.5-1.4) 07/25/21 05:39 Estim Creat Clear Calc 58.0 07/25/21 05:39 Estimated GFR > 60 07/25/21 05:39 POC Glucose 221 mg/dL (60-115) H 07/27/21 11:38 Random Glucose 129 mg/dL (60-115) H 07/25/21 05:39 Calcium 8.6 mg/dL (8.4-10.2) 07/25/21 05:39 Magnesium 1.8 mg/dL (1.6-2.6) 07/23/21 15:50 Total Bilirubin 0.3 mg/dL (0.0-1.0) 07/23/21 15:50 Direct Bilirubin 0.2 mg/dL (0.0-0.5) 07/23/21 15:50 AST 83 U/L (5-31) H 07/23/21 15:50 ALT 68 U/L (0-31) H 07/23/21 15:50 Alkaline Phosphatase 335 U/L (39-117) H 07/23/21 15:50 Troponin I High Sens 12.2 ng/L (<3.5-17.0) 07/23/21 15:50 Total Protein 7.6 g/dL (6.5-8.0) 07/23/21 15:50 Albumin 3.4 g/dL (3.5-5.0) L 07/23/21 15:50 Triglycerides 84 mg/dL 07/25/21 17:32 Cholesterol 129 mg/dL 07/25/21 17:32 LDL Cholesterol, Calc 66 mg/dl 07/25/21 17:32 HDL Cholesterol 47 mg/dL 07/25/21 17:32 Urine Color STRAW 07/23/21 15:45 Urine Appearance CLEAR 07/23/21 15:45 Urine pH 7.5 (5.0-8.0) 07/23/21 15:45 Ur Specific [place] 1.020 (1.005-1.025) 07/23/21 15:45 Urine Protein NEG MG/DL (NEG-TRACE) 07/23/21 15:45 Urine Glucose (UA) NEG MG/DL (NEG) 07/23/21 15:45 Urine Ketones NEG MG/DL (NEG) 07/23/21 15:45 Urine Blood NEG (NEG) 07/23/21 15:45 Urine Nitrite NEG (NEG) 07/23/21 15:45 Ur Leukocyte Esterase NEG (NEG) 07/23/21 15:45 Urine Opiates Screen Not Detected (Not Detect) 07/23/21 15:45 Urine Fentanyl Screen Not Detected (Not Detect) 07/23/21 15:45 Ur Barbiturates Screen Not Detected (Not Detect) 07/23/21 15:45 Ur Phencyclidine Scrn Not Detected (Not Detect) 07/23/21 15:45 Ur Amphetamines Screen Not Detected (Not Detect) 07/23/21 15:45 U Benzodiazepines Scrn Not Detected (Not Detect) 07/23/21 15:45 Urine Cocaine Screen Not Detected (Not Detect) 07/23/21 15:45 U Marijuana (THC) Screen Not Detected (Not Detect) 07/23/21 15:45 Ethyl Alcohol < 10 mg/dL 07/23/21 15:50 COVID-19 (JAMES) Negative (Negative) 07/27/21 11:08 COVID-19 Clin Com See Note 07/27/21 11:08 Impressions Chest X-Ray 07/23/21 15:00 IMPRESSION: Mild prominence of bilateral pulmonary vascular markings but no congestion suspected. The lungs are clear. Head CT 07/23/21 15:20 IMPRESSION: No acute intracranial process seen. Chronic right maxillary sinus inflammatory changes. This critical result was discussed with CHLOÉ Pedraza at 3:30 PM on 07/23/2021. It was ascertained that the content and urgency of the report was understood at the time of direct communication. Brain MRI 07/23/21 16:49 IMPRESSION: No acute intracranial process. Numerous scattered chronic lacunar infarcts in the liana, right thalamus, right frontal periventricular white matter, and right retrolenticular capsule. Mild chronic white matter microangiopathy. Chronic microhemorrhages within the liana as well. Head/Neck CTA 07/23/21 22:40 IMPRESSION: * No occlusion or hemodynamically significant stenosis within the intracranial or extracranial arterial vasculature. * High-grade focal stenosis at the origin of the right vertebral artery. * Multifocal chronic lacunar infarcts as described. * Mild chronic white matter small vessel ischemic changes. * No acute infarcts. Discharge Plan Discharge Patient Disposition: [facility] Discharge Diagnosis: Hypertensive urgency, chronic CVA Referrals: [facility] [Outside] - 1 Week Consuelo Delgado MD [Physician] - 1 Week Po,Ludy Minaya MD [Primary Care Provider] - 1 Week Discharge Medications: New hydralazine 25 mg Tablet 25 mg PO QID Qty: 120 RF: 0 amlodipine 10 mg Tablet 10 mg PO DAILY Qty: 30 RF: 0 Continued cholecalciferol (vitamin D3) 50 mcg (2,000 unit) capsule 50 mcg PO DAILY 30 Days Qty: 30 RF: 11 metformin 500 mg tablet 500 mg PO DAILY 90 Days Qty: 90 RF: 1 acarbose 100 mg tablet 100 mg PO TID 90 Days Qty: 270 RF: 2 risperidone 1 mg tablet 1 mg PO BEDTIME 90 Days Qty: 90 RF: 3 ursodiol 250 mg tablet 250 mg PO TID Qty: 270 RF: 1 lisinopril 40 mg tablet 40 mg PO DAILY 90 Days Qty: 90 RF: 1 multivitamin Tablet 1 tab PO DAILY RF: 0 aspirin 81 mg tablet,delayed release (DR/EC) 81 mg PO DAILY Qty: 90 RF: 3 atorvastatin 40 mg tablet 40 mg PO DAILY Qty: 90 RF: 3 (DME) pen needle, diabetic [Comfort EZ Pen Gleason] 31 gauge x 3/16 needle See Rx Instructions .Route Qty: 100 RF: 3 bisacodyl [Dulcolax (bisacodyl)] 5 mg tablet,delayed release (DR/EC) 20 mg PO ONCE 1 Days Qty: 4 RF: 0 sertraline 100 mg tablet 200 mg PO DAILY RF: 0 albuterol sulfate 90 mcg/actuation HFA aerosol inhaler 1 inh inhalation QID PRN (Reason: Shortness Of Breath Or Wheezing) RF: 0 (DME) FreeStyle Lite Strips Strip See Rx Instructions .ROUTE .MEDSUPPLY Qty: 10 RF: 0 (DME) lancets [FreeStyle Lancets] 28 gauge misc See Rx Instructions .ROUTE .MEDSUPPLY Qty: 100 RF: 0 Discontinued fludrocortisone 0.1 mg tablet 0.05 mg PO DAILY RF: 0 Discharge Orders: Discharge Order (Routine); Ordered 07/27/21 Ordered By: Ava Potts Diet: diabetic diet and low salt diet Activity on Discharge: As tolerated Stand Alone Forms: Patient Portal Discharge page Activity Restrictions/Additional Instructions: diet: REGULAR solids and DOWNGRADE to NECTAR THICK liquid (NO STRAW), with pills WHOLE in PUREE. Strict aspiration precautions apply Care Plan Goals: prevention of cardiovascular events Health Concerns: hypertensive urgency, chronic CVA Plan of Treatment: STOP fludrocortisone CONTINUE lisinopril ADD amlodipine 10 mg daily PLUS hydralazine 25 mg 4x a day Follow up with Neurology and Nephrology Assessment: see Discharge Summary Patient Instructions: Hypertensive Crisis (DC)
--- NOTE | 2021-07-27 14:43 | MHC.SL.SWA ---
Speech Pathologist Impression: Risk of Aspiration Pharyngeal Dysphagia Risk of Aspiration Due to: Neurological Condition Dysphasia Diet Status: Downgrade Liquid Consistency and Strategies for Safe Swallow: Liquid Intake Recommendation: [place] Thick Liquid Intake Strategies: Small Sips Solid Food Consistency: Dietary Recommendations: Regular Additional Modifications to Solid Foods: Recommend REGULAR solids and DOWNGRADE to NECTAR THICK liquid (NO STRAW), with pills WHOLE in PUREE. Strict aspiration precautions apply. CRANE MANAGER will continue to follow. Oral Medication Intake: Whole with Puree Compensatory Strategies and Precautions to be Taken for Safe Swallow: Sitting Upright (90 deg) No Straw Small Bites and Sips Alternate Liquids/Solids Rate of Ingestion Change Supervision While Eating and Drinking for Safe Swallow: Intermittent Supervision Foods to Avoid: Swallowing Recommended Treatments: Compens. Strategy Educat. Recommendation for Speech: Inpatient Speech Therapy Pt seen this a.m. to check on toleration of diet consistencies, re-assess swallow. Pt reported that she had not eaten much at breakfast, but not due to difficulty - she didn't find the food appetizing ( no salt or sugar ). Pt was given instructions to thin liquids on tray if they are too thick, and show the nectar consistency recommended for her diet. Pt independently took cup sip of nectar thick liquid, w/ timely oral phase, mild delay initiating swallow, good clearance of liquid w/no clinical s/s aspiration on 3 trials. Pt was presented w/ tsp of thin liquid (water), pt had mild delay initiating swallow, had wet voice and coughed after swallow. Recommend continue w/ NECTAR THICK liquids, and REGULAR diet, w/ pills WHOLE in PUREE. Comment: Overt s/s of aspiration evident when drinking thin liquids. Frequency/Duration: M-F Date Range for Service Req: Timeline to reassess: Development Editor Clinican/Clinical Fellow: No Supervisory Statement: I have reviewed and agree with the student/clinical fellow's documentation: N/A Speech Language Pathologist: Елена Dee M.A., CCC-CRANE MANAGER
[2021-07-27 15:43] VITALS: BP 146/68; PULSE 69; RESP 18; TEMP 36.7; O2SAT 98
[2021-07-27] MEDS: Acetaminophen 325 MG TABLET 650 MG PO (16:02)
[2021-07-27 16:07] LABS: Glucose, Whole Blood 193 mg/dL (60-115)
[2021-08-02 12:06] LABS: Renin 2.93 ng/mL/h (0.25-5.82)
[2021-08-02 12:06] LABS: Plasma Renin Activity 0.33 ng/mL/h (0.25-5.82)
== END 2021-07-27 17:17 | DRG 199 ==
LOC: HO.ED 18:18 → HO.EDOVER 21:48 → HO.S3 07-24 00:42
PROVIDERS: Hospitalist; Internal Medicine Hypertension Specialist; Physician Assistant; Admitting Provider Internal Medicine; Emergency Provider Emergency Medicine; PCP Internal Medicine; Visit Provider Family Medicine
DX: I16.0 Hypertensive urgency (principal); E87.3 Alkalosis; E11.40 Type 2 diabetes mellitus with diabetic neuropathy, unspecified; G81.94 Hemiplegia, unspecified affecting left nondominant side; M35.00 Sjogren syndrome, unspecified; E03.8 Other specified hypothyroidism; K74.3 Primary biliary cirrhosis; Z98.84 Bariatric surgery status; Z20.822 Contact with and (suspected) exposure to COVID-19; Z79.82 Long term (current) use of aspirin; R47.1 Dysarthria and anarthria; F39 Unspecified mood [affective] disorder; I10 Essential (primary) hypertension; R13.10 Dysphagia, unspecified; E87.6 Hypokalemia; Z88.2 Allergy status to sulfonamides; Z88.5 Allergy status to narcotic agent; Z86.73 Personal history of transient ischemic attack (TIA), and cerebral infarction without residual deficits; Z91.040 Latex allergy status; Z79.84 Long term (current) use of oral hypoglycemic drugs; Z79.899 Other long term (current) drug therapy
CPT/HCPCS: 36415; 70450; 70496; 70498; 70551; 71045; 76775; 80048; 80061; 80076; 80307; 81003; 82077; 82088; 82947; 83735; 84244; 84484; 85025; 85610; 85730; 87635; 93005; 93975; 97110; 97116; 97162; 97166; 99285; J1650; Q9967

== ENCOUNTER 2021-08-24 11:16 | Outpatient (REF) | payer OTHER, SELFPAY ==
[2021-08-24 11:57] LABS: C Reactive Protein 1.19 mg/dL (< or = 0.50)
[2021-08-24 12:21] LABS: TSH reflex Free T4 1.54 uIU/mL (0.32-4.0); Vitamin D 25-OH Total 37.4 ng/mL (>30)
[2021-08-24 12:44] LABS: Creatinine Urine 102.75 mg/dL; Microalbum/Creatinine Ratio Ur 4.8 ug/mg cr
== END 2021-08-24 11:17 | disposition home or self-care (01) ==
LOC: HO.LAB 11:16
PROVIDERS: PCP Internal Medicine; Visit Provider Internal Medicine
DX: E11.65 Type 2 diabetes mellitus with hyperglycemia (principal); Z98.84 Bariatric surgery status
CPT/HCPCS: 36415; 82043; 82306; 84443; 86140

== ENCOUNTER 2021-09-28 10:22 | Outpatient (REF) | payer OTHER, SELFPAY ==
[2021-09-28 10:54] LABS: Hematocrit 36.8 % (37.0-47.0); Hemoglobin 11.2 g/dl (12.0-16.0); Mean Corpuscular HGB Conc 30.4 g/dl (31.0-35.0); Mean Corpuscular Hemoglobin 24.8 pg (27.0-33.0); Mean Corpuscular Volume 81.4 fL (80.0-98.0); Platelet Count 229 X10*3/uL (160-400); Red Blood Count 4.52 X10*6/uL (4.20-5.50); Red Cell Distribution Width 21.1 % (11.0-16.0); White Blood Count 6.2 X10*3/uL (4.8-10.8)
[2021-09-28 12:27] LABS: Alanine Aminotransferase 43 U/L (0-31); Albumin Level 3.5 g/dL (3.5-5.0); Alkaline Phosphatase 305 U/L (39-117); Anion Gap 13 (12-20); Aspartate Amino Transferase 42 U/L (5-31); Bilirubin Total 0.3 mg/dL (0.0-1.0); Blood Urea Nitrogen 16 mg/dL (9-16); Calcium 9.2 mg/dL (8.4-10.2); Carbon Dioxide 30 mmol/L (22-29); Chloride 104 mmol/L (96-108); Estimated Glomerular Filt Rate > 60; Glucose Random 115 mg/dL (60-115); Potassium 4.5 mmol/L (3.3-5.1); Sodium 142 mmol/L (135-145); Total Protein 7.1 g/dL (6.5-8.0)
[2021-09-28 14:14] LABS: Creatinine Urine 89.22 mg/dL; Total Protein Urine Random 9 mg/dL (<12)
[2021-09-30 14:02] LABS: Vitamin D 25-OH Total 34.9 ng/mL (>30)
== END 2021-09-28 10:23 | disposition home or self-care (01) ==
LOC: HO.LAB 10:22
PROVIDERS: PCP Internal Medicine; Visit Provider Internal Medicine Hypertension Specialist
DX: E11.22 Type 2 diabetes mellitus with diabetic chronic kidney disease (principal); N18.9 Chronic kidney disease, unspecified
CPT/HCPCS: 36415; 80053; 82306; 84156; 85027

== ENCOUNTER → 2021-10-01 08:57 | Outpatient (BNVA) | payer OTHER, SELFPAY | PROVIDERS: Visit Provider Nurse Practitioner Gerontology | DX: E11.65 Type 2 diabetes mellitus with hyperglycemia (principal); E11.42 Type 2 diabetes mellitus with diabetic polyneuropathy; E11.319 Type 2 diabetes mellitus with unspecified diabetic retinopathy without macular edema; K91.2 Postsurgical malabsorption, not elsewhere classified; E78.5 Hyperlipidemia, unspecified; I10 Essential (primary) hypertension; Z79.84 Long term (current) use of oral hypoglycemic drugs | CPT/HCPCS: 82947; 99212 ==

== ENCOUNTER 2021-10-20 11:28 | Outpatient (REF) | payer OTHER, SELFPAY ==
[2021-10-20 14:07] LABS: Erythrocyte Sedimentation Rate 42 MM/HR (0-20)
[2021-10-21 13:30] LABS: Anti DNA DS Antibody <1 IU/mL; Antibody to SS-A Antigen 7.0 POS AI (<1.0 NEG); Antibody to SS-B Antigen <1.0 NEG AI (<1.0 NEG); SM/Ribonucleoprotein Ab <1.0 NEG AI (<1.0 NEG); Smith Protein <1.0 NEG AI (<1.0 NEG)
[2021-10-21 13:41] LABS: PTT (LAC) Screen 36 sec (< OR = 40)
[2021-10-21 20:12] LABS: Cardiolipin IgG Ab <2.0 GPL-U/mL; Cardiolipin IgM Ab <2.0 MPL-U/mL
== END 2021-10-20 11:29 | disposition home or self-care (01) ==
LOC: HO.LAB 11:28
PROVIDERS: PCP Internal Medicine; Visit Provider Internal Medicine Rheumatology
DX: R76.8 Other specified abnormal immunological findings in serum (principal); I63.9 Cerebral infarction, unspecified; E11.65 Type 2 diabetes mellitus with hyperglycemia; E11.42 Type 2 diabetes mellitus with diabetic polyneuropathy; E11.319 Type 2 diabetes mellitus with unspecified diabetic retinopathy without macular edema; I10 Essential (primary) hypertension; E03.8 Other specified hypothyroidism; E78.5 Hyperlipidemia, unspecified; M35.00 Sjogren syndrome, unspecified; Z98.84 Bariatric surgery status; Z88.2 Allergy status to sulfonamides; Z88.6 Allergy status to analgesic agent; Z91.040 Latex allergy status; Z79.82 Long term (current) use of aspirin; Z79.84 Long term (current) use of oral hypoglycemic drugs; Z79.899 Other long term (current) drug therapy
CPT/HCPCS: 36415; 85597; 85613; 85652; 85730; 86140; 86147; 86225; 86235

== ENCOUNTER 2021-10-25 12:03 | Outpatient (REF) | payer OTHER, SELFPAY ==
[2021-10-25 13:53] LABS: Creatinine Urine 80.32 mg/dL; Microalbum/Creatinine Ratio Ur 53.5 ug/mg cr
== END 2021-10-25 12:04 | disposition home or self-care (01) ==
LOC: HO.LAB 12:03
PROVIDERS: PCP Internal Medicine; Visit Provider Internal Medicine Rheumatology
DX: R76.8 Other specified abnormal immunological findings in serum (principal)
CPT/HCPCS: 82043

== ENCOUNTER 2021-11-03 10:57 | Outpatient (REF) | payer OTHER, SELFPAY ==
--- NOTE | ~2021-11-03 | XR_ITS ---
EXAMINATION: XR CERVICAL SPINE CLINICAL INFORMATION: Neck pain. COMPARISON: None TECHNIQUE: 3 views of the cervical spine were obtained. FINDINGS: There is mild straightening of cervical lordosis. The vertebral heights and alignment are normal. There is loss of C5-C6 disc height with moderate ventral spondylosis and bridging osteophyte. There is minimal ventral osteophyte at C4-C5 disc level. No visible acute fracture, dislocation or lytic process seen. There is mild right C4-C5 and C5-C6 facet joint arthropathy. The prevertebral soft tissues are normal. XR/XR cervical spine 3V IMPRESSION: Moderate ventral spondylosis C5-C6 disc level with degenerative disc changes. Mild right C4-C5 and C5-C6 facet joint arthropathy and hypertrophy.
--- NOTE | ~2021-11-03 | XR_ITS ---
EXAMINATION: XR SHOULDER, RIGHT CLINICAL INFORMATION: Right shoulder pain. COMPARISON: Right shoulder radiographs dated 07/19/2011. TECHNIQUE: AP external rotation, Grashey, scapular Y, and axillary views of the right shoulder. FINDINGS: Moderate acromial clavicular joint space narrowing with marginal osteophytes. Large subacromial spurs. [id number] glenohumeral joint space narrowing with marginal osteophytes. No osseous erosion. No fracture or dislocation. XR/XR shoulder RT min 2V IMPRESSION: [id number] acromioclavicular and moderate glenohumeral osteoarthritis, progressed when compared to the prior examination. Large subacromial spur, increased when compared to the prior examination.
== END 2021-11-03 10:58 | disposition home or self-care (01) ==
LOC: HO.XRAY 10:57
PROVIDERS: PCP Internal Medicine; Visit Provider Internal Medicine Rheumatology
DX: M54.2 Cervicalgia (principal); M25.511 Pain in right shoulder; R76.8 Other specified abnormal immunological findings in serum; M35.00 Sjogren syndrome, unspecified; Z86.73 Personal history of transient ischemic attack (TIA), and cerebral infarction without residual deficits
CPT/HCPCS: 72040; 73030; 99212

== ENCOUNTER 2021-11-17 13:39 | Outpatient (REF) | payer OTHER, SELFPAY ==
--- NOTE | ~2021-11-17 | US_ITS ---
EXAMINATION: US VENOUS ULTRASOUND WITH DOPPLER LOWER EXTREMITY, LEFT CLINICAL INFORMATION: Localized edema COMPARISON: None TECHNIQUE: Ultrasound of the deep veins is performed from the hip to the calf with compression sonography and color and pulse Doppler assessment. Spectral analysis with color-flow imaging is performed. FINDINGS: There is normal venous compression and respiratory variation and augmented flow. The visualized common femoral vein, superficial femoral vein, profunda femoral vein, popliteal vein, and the trifurcation region shows no evidence of deep venous thrombosis. There is no significant popliteal fossa cyst. If the patient's symptoms persist, followup ultrasound in 5 days 7 days might be of value to exclude proximal propagation from a non-visualized calf vein. US/US venous duplex LE LT IMPRESSION: No DVT demonstrated in the left lower extremity.
== END 2021-11-17 13:40 | disposition home or self-care (01) ==
LOC: HO.US 13:39
PROVIDERS: Visit Provider Nurse Practitioner Acute Care
DX: R60.0 Localized edema (principal); Z86.718 Personal history of other venous thrombosis and embolism
CPT/HCPCS: 93971

== ENCOUNTER 2022-03-28 10:50 | Outpatient (REF) | payer OTHER, SELFPAY ==
--- NOTE | ~2022-03-28 | MM_ITS ---
EXAMINATION: MM SCREENING DIGITAL BREAST TOMOSYNTHESIS, BILATERAL CLINICAL INFORMATION: Screening. Asymptomatic. The lifetime risk of breast cancer based on the Tyrer-Cuzick Model is 4%. COMPARISON: Mammography: 03/25/2021, 03/19/2020, 11/26/2018 TECHNIQUE: Digital breast tomosynthesis is performed in both the craniocaudal and mediolateral oblique views along with computer-aided detection (CAD). Synthesized 2D images are generated from the tomosynthesis. FINDINGS: There are scattered areas of fibroglandular density (ACR BI-RADS breast composition Category b). There are no significant masses, abnormal calcifications, or other abnormalities. Parenchymal pattern is similar to prior studies. There is no developing density or architectural abnormality. The axilla and skin contours are unremarkable. No significant changes. MM/MM tomosynthesis screening BI IMPRESSION: No mammographic evidence of malignancy. ASSESSMENT: BI-RADS 1: Negative RECOMMENDATION: Routine annual mammography screening. This patient's information was entered into a reminder system with a target due date for their next mammogram.
== END 2022-03-28 10:51 | disposition home or self-care (01) ==
LOC: HO.MAMMO 10:50
PROVIDERS: PCP Internal Medicine; Visit Provider Internal Medicine
DX: Z12.31 Encounter for screening mammogram for malignant neoplasm of breast (principal)
CPT/HCPCS: 77063; 77067

== ENCOUNTER 2022-04-07 10:44 | Outpatient (REF) | payer OTHER, SELFPAY ==
[2022-04-07 11:10] LABS: Estimated Average Glucose 189 mg/dL; Hemoglobin A1c % 8.2 %
[2022-04-07 11:36] LABS: Alanine Aminotransferase 48 U/L (0-31); Albumin Level 3.6 g/dL (3.5-5.0); Alkaline Phosphatase 339 U/L (39-117); Anion Gap 13 (12-20); Aspartate Amino Transferase 57 U/L (5-31); Bilirubin Total 0.3 mg/dL (0.0-1.0); Blood Urea Nitrogen 10 mg/dL (9-16); Calcium 8.7 mg/dL (8.4-10.2); Carbon Dioxide 31 mmol/L (22-29); Chloride 105 mmol/L (96-108); Cholesterol 111 mg/dL; Estimated Glomerular Filt Rate > 60; Glucose Fasting 128 mg/dL (60-99); HDL Cholesterol 47 mg/dL; Iron 31 mcg/dL (30-160); LDL Cholesterol Calculated 49 mg/dl; Percent Iron Saturation 9 % (15-50); Potassium 3.7 mmol/L (3.3-5.1); Sodium 145 mmol/L (135-145); Total Iron Binding Capacity 351 mcg/dL (228-428); Total Protein 7.3 g/dL (6.5-8.0); Triglycerides 76 mg/dL; Unsaturated Iron Binding 320 ug/dL
[2022-04-07 12:00] LABS: Vitamin D 25-OH Total 34.1 ng/mL (>30)
[2022-04-07 12:25] LABS: Folate 13.6 ng/mL (> or = 4.0); Vitamin B12 375 pg/mL (200-900)
[2022-04-07 12:45] LABS: Appearance Urine Clear; Color Urine Yellow; Glucose Urine UA 100 mg/dL (Negative); Leukocyte Esterase Urine Small (1+) (Negative); Nitrite Urine Negative (Negative); Specific Gravity - Urine 1.025 (1.005-1.025); UMIC TRIGGER UACC YES; Urine Blood Negative (Negative); Urine Ketones Trace mg/dL (Negative); Urine Protein Trace mg/dL (Neg-Trace)
[2022-04-07 13:06] LABS: Bacteria Urine None Seen (None Seen); Creatinine Urine 152.54 mg/dL; Hyaline Casts Urine 0-2 /LPF (0-2); RBC Urine 0-2 /HPF (0-2); UACC Culture Trigger YES; WBC Urine 0-5 /HPF (0-5)
== END 2022-04-07 10:45 | disposition home or self-care (01) ==
LOC: HO.LAB 10:44
PROVIDERS: PCP Internal Medicine; Visit Provider Internal Medicine
DX: E11.65 Type 2 diabetes mellitus with hyperglycemia (principal); E78.00 Pure hypercholesterolemia, unspecified; Z98.84 Bariatric surgery status
CPT/HCPCS: 36415; 80053; 80061; 81001; 82306; 82607; 82746; 83036; 83540; 84443; 87086

== ENCOUNTER 2022-04-30 10:58 | Emergency (ER) | payer OTHER, SELFPAY ==
--- NOTE | ~2022-04-30 | XR_ITS ---
EXAMINATION: XR CHEST CLINICAL INFORMATION: Status post fall. COMPARISON: 07/23/2021 chest radiograph. TECHNIQUE: Frontal view of the chest was obtained. FINDINGS: No significant abnormality is noted involving the heart, lungs, mediastinum, bony thorax or soft tissues. XR/XR chest 1V IMPRESSION: No acute cardiopulmonary process.
--- NOTE | ~2022-04-30 | CT_ITS ---
EXAMINATION: CT CERVICAL SPINE WITHOUT CONTRAST CLINICAL INFORMATION: Fall COMPARISON: November 03, 2021 and plain film study TECHNIQUE: CT cervical spine without IV or intrathecal contrast. Coronal and sagittal reconstructions. This CT examination was performed using dose optimization techniques as appropriate, variously including the following: *Automated exposure control *Adjustment of mA and/or kV according to patient size (this includes techniques or standardized protocols for targeted exams where dose is matched to indication/reason for exam; i.e. extremities or head) *Use of iterative reconstruction technique DLP: 258 mGy-cm FINDINGS: No abnormal prevertebral soft tissue swelling is seen. No acute cervical spine fracture is noted. Paraspinal muscle fat planes are maintained. There is disc space narrowing at the C5-C6 level with prominent spurring anteriorly. There is some mild posterior spurring present but without significant anterior neural foraminal encroachment identified. Pterygoid plates are intact. There is mild degenerative change of the right temporomandibular joint. Lung apices unremarkable. CT/CT cervical spine wo IV con IMPRESSION: 1. No acute cervical spine fracture. 2. Cervical spondylosis as described. Fleischner guidelines were followed.
--- NOTE | ~2022-04-30 | CT_ITS ---
EXAMINATION: CT LUMBAR SPINE WITHOUT CONTRAST CLINICAL INFORMATION: Fall. COMPARISON: Lumbar spine MRI 05/18/2020. TECHNIQUE: Sponge Fisherman images were obtained. CT imaging of the lumbar spine was performed without contrast. Data was reformatted into multiplanar images at the acquisition workstation. This CT examination was performed using dose optimization techniques as appropriate, variously including the following: *Automated exposure control *Adjustment of mA and/or kV according to patient size (this includes techniques or standardized protocols for targeted exams where dose is matched to indication/reason for exam; i.e. extremities or head) *Use of iterative reconstruction technique DLP; 1153 mGy-cm FINDINGS: Alignment is normal. Vertebral body heights are preserved. No acute fracture. Intervertebral disc spaces are grossly maintained at all levels. Canal patency is not well assessed on this examination due to inherent limitations of CT without intrathecal contrast. There is at least mild canal stenosis at the level of L4-L5. Grossly no foraminal nerve root compression. Limited visualization of the retroperitoneal anatomy reveals atheromatous calcification involving abdominal aorta and iliac vessels. Anastomotic sutures are visualized within the small bowel and colon. Multiple renal vascular and mesenteric calcifications are also noted. CT/CT lumbar spine wo IV con IMPRESSION: Unremarkable examination in that there is no evidence of acute fracture or posttraumatic spinal subluxation.
--- NOTE | ~2022-04-30 | CT_ITS ---
EXAMINATION: CT HEAD WITHOUT CONTRAST CLINICAL INFORMATION: Fall COMPARISON: April 09, 2021 and MRI of July 23, 2021 TECHNIQUE: Contiguous axial imaging was performed from the skull base to vertex without intravenous administration of contrast. This CT examination was performed using dose optimization techniques as appropriate, variously including the following: *Automated exposure control *Adjustment of mA and/or kV according to patient size (this includes techniques or standardized protocols for targeted exams where dose is matched to indication/reason for exam; i.e. extremities or head) *Use of iterative reconstruction technique DLP: 528 mGy-cm FINDINGS: No intracranial hemorrhage, significant mass effect or midline structure shift, abnormal extra-axial fluid collection is identified. There are again noted to be multiple pontine infarcts without change. Lacunar infarcts are seen involving left retrolenticular capsule, right thalamus, and right retrolenticular capsule. There is also some diminished density about the left centrum semiovale. The alvarez-white matter interface is maintained. There is some mild mucosal thickening within portions of the ethmoid sinuses. The remainder of the paranasal sinuses and mastoid air cells appear unremarkable. CT/CT head/brain wo IV con IMPRESSION: No acute intracranial pathology. Chronic findings as described above.
[2022-04-30 11:11] VITALS: BP 193/73; PULSE 67; RESP 16; TEMP 36.6; O2SAT 97; BMI 20.1
--- NOTE | 2022-04-30 11:14 | ECG_ITS ---
Test Reason : GENERAL MEDICAL Blood Pressure : / mmHG Vent. Rate : 069 BPM Atrial Rate : 069 BPM P-R Int : 170 ms QRS Dur : 066 ms QT Int : 442 ms P-R-T Axes : 056 008 113 degrees QTc Int : 473 ms Normal sinus rhythm Nonspecific ST and T wave abnormality Prolonged QT Abnormal ECG When compared with ECG of 23-JUL-2021 15:06, Nonspecific T wave abnormality has replaced inverted T waves in Lateral leads Referred By: Lila Bashir Electronically Signed By:ABDIAZIZ COX MD
--- NOTE | 2022-04-30 11:16 | ED.FALL ---
HPI - Fall General Chief Complaint: General Medical Stated Complaint: possible mini stroke Time Seen by Provider: 04/30/22 11:05 Source: patient, family and old records reviewed Mode of arrival: ambulatory Limitations: no limitations History of Present Illness HPI Narrative: 61 yo female from home with hx of CVA residual L sided weakness/some dysphagia, arthritis, DM, HTN, HLD, CAD, low back pain, fatty liver, GERD, asthma, hypothyroidism who fell at home one week ago. Her heard a thud and patient was awake on floor. She felt dizzy prior to the fall. Since the fall patient has c/o low back pain no new b/b incontinence or saddle anesthesia. Daughter feels over past three days that her low back hurts, it makes it hard to walk, feels left leg is weaker. The daughter also feels like the speech is slower. MD complaint: fall Onset (ago): week(s) (1) Fall from: standing Fall witnessed: no Place fall occurred: home Loss of consciousness: none Prolonged down time: no Symptoms prior to fall: dizziness Location of injury: back Severity: moderate Quality: dull and aching Associated symptoms (after fall): other (low back pain, slow speech, increased difficulty walking) Related Data Home Medications Medication Instructions Recorded Confirmed albuterol sulfate 90 mcg/actuation 1 inh inhalation QID PRN Shortness 04/28/20 01/11/22 aerosol inhaler Of Breath Or Wheezing sertraline 100 mg tablet 200 mg PO DAILY 04/28/20 01/11/22 acarbose 100 mg tablet 1 tab PO TID 01/11/22 01/11/22 gabapentin 300 mg tablet,extended 300 mg PO QID 01/11/22 01/11/22 release 24 hr Previous Rx's Medication Instructions Recorded pen needle, diabetic 31 gauge x #100 ea 02/24/2109/22 (Comfort EZ Pen [place]) risperidone 1 mg tablet 1 mg PO BEDTIME 90 days #90 tabs 07/08/21 Transport wheelchair #1 ea 08/11/21 multivitamin 1 tab PO DAILY 90 days #90 tabs 09/13/21 Walker with seat and wheels #1 ea 09/28/21 blood sugar diagnostic (FreeStyle #100 ea 10/01/21 Lite Strips) metformin 500 mg tablet 500 mg PO DAILY 90 days #90 tabs 10/11/21 polyethylene glycol 3350 17 gram 17 g PO BID #100 ea 10/27/21 oral powder packet (Miralax) lancets 28 gauge (FreeStyle #100 ea 12/28/21 Lancets) atorvastatin 40 mg tablet 40 mg PO DAILY #90 tabs 01/17/22 cholecalciferol (vitamin D3) 50 50 mcg PO DAILY 30 days #30 caps 03/28/22 mcg (2,000 unit) capsule DEPENDS SMALL #120 ea 04/01/22 lisinopril 20 mg tablet 20 mg PO DAILY 90 days #90 tabs 04/01/22 psyllium husk 0.52 gram capsule 0.52 g PO BEDTIME PRN constipation 04/01/22 (Fiber (psyllium husk)) 90 days #90 caps aspirin 81 mg tablet,delayed 81 mg PO DAILY #90 tabs 04/20/22 release ursodiol 250 mg tablet 250 mg PO TID #270 tabs 04/20/22 lidocaine 5 % topical ointment 1 appl topical DAILY PRN pain #30 04/30/22 grams Allergies Allergy/AdvReac Type Severity Reaction Status Date / Time Latex, Natural Rubber Allergy Intermediate Rash Verified 04/01/22 16:47 Sulfa (Sulfonamide AdvReac Intermediate Stomach Verified 04/01/22 16:47 Antibiotics) Upset [SULFA (SULFONAMIDE ANTIBIOTICS)] Morphine Sulfate AdvReac Intermediate Abdominal Uncoded 04/01/22 16:47 Pain Review of Systems Review of Systems: Constitutional : No Weight loss, No Fever, No Chills, ENT/Mouth : No Hearing loss, No Ear Pain, No Nasal Congestion, No Sinus Pain, No Hoarseness, No sore throat, No Rhinorrhea, No Swallowing Difficulty Cardiovascular : No Chest Pain, No SOB Respiratory : No Cough, No Dyspnea Gastrointestinal : No Nausea, No Vomiting, No Diarrhea, No abdominal Pain, No Hematochezia, No Melena Genitourinary : No Dysuria, No Urinary Frequency, No Hematuria, No Urinary Incontinence, Musculoskeletal : positive back pain Skin : No Skin Lesions, No rash Neuro : No Weakness, No Numbness, No Paresthesias, no loss of bowel or bladder incontinence, no saddle anesthesia All other systems reviewed and are negative PMFSH Past Medical History Attestation statement: The following information was validated with the patient. Medical History BOB positive Asthma Cervical osteoarthritis CVA (cerebral vascular accident) Diabetes type 2, uncontrolled Diabetic polyneuropathy associated with type 2 diabetes mellitus Diabetic retinopathy associated with type 2 diabetes mellitus Dyslipidemia Fatty liver disease, nonalcoholic GERD (gastroesophageal reflux disease) History of CVA (cerebrovascular accident) History of sleep apnea History of umbilical hernia HTN (hypertension) Hypertension Hypoglycemia after GI (gastrointestinal) surgery Osteoarthritis of right glenohumeral joint Postural hypotension Primary biliary cholangitis Shoulder pain, right Sjogrens syndrome Subclinical hypothyroidism Surgical History History of carpal tunnel release History of esophagogastroduodenoscopy (EGD) History of laparoscopic appendectomy History of partial hysterectomy Hx of section Hx of colonoscopy Hx of dilation and curettage Hx of gastric bypass Hx of tonsillectomy Family History Family History Father [place] (myocardial infarction) Diabetes mellitus Mother Diabetes mellitus CVA (cerebral vascular accident) Maternal Grandmother Stomach cancer Sister Hemorrhagic cerebrovascular accident (CVA) Social History Social History Household Members: Spouse Housing: Apartment Are you a primary customer care voice consultant to a significant other at home: No Do you presently have visiting nurse or other home services: Yes Alcohol intake: never Patient Tobacco Use Status: Never used Tobacco e-Cigarette/Vaping Use: Never Used Second Hand Smoke Exposure: No Advance Directives: No Advance Directives Information Provided: Yes Advance Directives Date on File: 07/10/99 service: No Current occupational status: retired and disabled Cognitive needs: Yes (wheelchait) Hearing needs: No Vision needs: No Physical Exam Vital Signs: Vital Signs: Last Vital Signs Temp 98 F 04/30/22 11:11 Pulse 70 04/30/22 13:44 Resp 16 04/30/22 11:11 BP 187/78 H 04/30/22 13:44 Pulse Ox 97 04/30/22 11:11 O2 Del Method 04/30/22 11:11 BMI result Body Mass Index 20.1 Appearance: Alert. Oriented X3. No acute distress. Eyes: Pupils equal, round and reactive to light. ENT: Pharynx normal. Neck: Normal inspection. Neck supple. CVS: Normal heart rate and rhythm. Pulses normal. Respiratory: No respiratory distress. Breath sounds normal. Abdomen: Soft and nontender. Back: ttp along lower lumbar spine no trauma seen Skin: Skin warm and dry. Normal skin color. Normal skin turgor. Extremities: No lower extremity edema. Neuro: Oriented X 3. 4+/5 weakness L arm and leg No sensory deficit. Course Course Course Narrative: negative workup other than low mag, urine pending, K repleted BP down MDM - Fall MDM Narrative Medical decision making narrative: 61 yo female from home with hx of CVA residual L sided weakness/some dysphagia, arthritis, DM, HTN, HLD, CAD, low back pain, fatty liver, GERD, asthma, hypothyroidism here with c/o fall 1 week ago now with low back pain and slow speech. Will need labs, CT head/lumbar spine, labs, UA, EKG - I do not appreciate new neuro findings from baseline - appear old. Possible compression fracture she is distal NV intact. Lab Data Result diagrams: 04/30/22 12:22 04/30/22 12:22 Labs: Lab Results 04/30/22 04/30/22 04/30/22 Range/Units 11:30 12:22 12:22 WBC 5.4 (4.8-10.8) X10*3/uL RBC 5.01 (4.20-5.50) X10*6/uL Hgb 12.1 (12.0-16.0) g/dl Hct 39.5 (37.0-47.0) % MCV 78.8 L (80.0-98.0) fL MCH 24.2 L (27.0-33.0) pg MCHC 30.6 L (31.0-35.0) g/dl RDW 15.9 (11.0-16.0) % Plt Count 216 (160-400) X10*3/uL MPV 12.5 H (9.4-12.3) fL Immature Gran % (Auto) 0.4 (0.0-0.4) % Neut % (Auto) 56.0 (45-73) % Lymph % (Auto) 32.0 (20-40) % [place] % (Auto) 8.5 (2-11) % Eos % (Auto) 2.4 (0-4) % Baso % (Auto) 0.7 (0-2) % Lymph # (Auto) 1.7 (1.2-4.9) X10*3/uL [place] # (Auto) 0.5 (0.1-1.2) X10*3/uL Eos # (Auto) 0.1 (0.0-0.4) X10*3/uL Baso # (Auto) 0.0 (0.0-0.2) X10*3/uL Abs Immat Gran (auto) 0.02 (0.00-0.03) X10*3/uL Absolute Neuts (auto) 3.1 (2.0-8.3) x10*3/uL Absolute Nucleated RBC 0.000 (0.0-0.012) X10*3/uL Nucleated RBC % (auto) 0.0 (0.0-0.2) /100WBC PT (10.0-13.1) SEC INR (0.9-1.1) Sodium 142 (135-145) mmol/L Potassium 3.1 L (3.3-5.1) mmol/L Chloride 103 (96-108) mmol/L Carbon Dioxide 27 (22-29) mmol/L Anion Gap 15 (12-20) BUN 15 (9-16) mg/dL Creatinine 0.69 (0.5-1.4) mg/dL Estim Creat Clear Calc 65.8 Estimated GFR > 60 Random Glucose 103 (60-115) mg/dL Calcium 8.8 (8.4-10.2) mg/dL Magnesium 1.3 L* (1.6-2.6) mg/dL Total Bilirubin 0.3 (0.0-1.0) mg/dL Direct Bilirubin < 0.2 (0.0-0.5) mg/dL AST 70 H (5-31) U/L ALT 53 H (0-31) U/L Alkaline Phosphatase 343 H (39-117) U/L Total Creatine Kinase 300 H (26-140) U/L Total Protein 7.5 (6.5-8.0) g/dL Albumin 3.7 (3.5-5.0) g/dL Lipase 11 (8-78) U/L Urine Color Urine Appearance Urine pH (5.0-9.0) Ur Specific [place] (1.005-1.025) Urine Protein (Neg-Trace) mg/dL Urine Glucose (UA) (Negative) mg/dL Urine Ketones (Negative) mg/dL Urine Blood (Negative) Urine Nitrite (Negative) Ur Leukocyte Esterase (Negative) COVID-19 (JAMES) Negative (Negative) COVID-19 Clin Com See Note 04/30/22 04/30/22 Range/Units 12: 13:36 WBC (4.8-10.8) X10*3/uL RBC (4.20-5.50) X10*6/uL Hgb (12.0-16.0) g/dl Hct (37.0-47.0) % MCV (80.0-98.0) fL MCH (27.0-33.0) pg MCHC (31.0-35.0) g/dl RDW (11.0-16.0) % Plt Count (160-400) X10*3/uL MPV (9.4-12.3) fL Immature Gran % (Auto) (0.0-0.4) % Neut % (Auto) (45-73) % Lymph % (Auto) (20-40) % [place] % (Auto) (2-11) % Eos % (Auto) (0-4) % Baso % (Auto) (0-2) % Lymph # (Auto) (1.2-4.9) X10*3/uL [place] # (Auto) (0.1-1.2) X10*3/uL Eos # (Auto) (0.0-0.4) X10*3/uL Baso # (Auto) (0.0-0.2) X10*3/uL Abs Immat Gran (auto) (0.00-0.03) X10*3/uL Absolute Neuts (auto) (2.0-8.3) x10*3/uL Absolute Nucleated RBC (0.0-0.012) X10*3/uL Nucleated RBC % (auto) (0.0-0.2) /100WBC PT 14.1 H (10.0-13.1) SEC INR 1.2 H (0.9-1.1) Sodium (135-145) mmol/L Potassium (3.3-5.1) mmol/L Chloride (96-108) mmol/L Carbon Dioxide (22-29) mmol/L Anion Gap (12-20) BUN (9-16) mg/dL Creatinine (0.5-1.4) mg/dL Estim Creat Clear Calc Estimated GFR Random Glucose (60-115) mg/dL Calcium (8.4-10.2) mg/dL Magnesium (1.6-2.6) mg/dL Total Bilirubin (0.0-1.0) mg/dL Direct Bilirubin (0.0-0.5) mg/dL AST (5-31) U/L ALT (0-31) U/L Alkaline Phosphatase (39-117) U/L Total Creatine Kinase (26-140) U/L Total Protein (6.5-8.0) g/dL Albumin (3.5-5.0) g/dL Lipase (8-78) U/L Urine Color Yellow Urine Appearance Clear Urine pH 6.0 (5.0-9.0) Ur Specific [place] 1.010 (1.005-1.025) Urine Protein Negative (Neg-Trace) mg/dL Urine Glucose (UA) Negative (Negative) mg/dL Urine Ketones Negative (Negative) mg/dL Urine Blood Negative (Negative) Urine Nitrite Negative (Negative) Ur Leukocyte Esterase Negative (Negative) COVID-19 (JAMES) (Negative) COVID-19 Clin Com ECG Data Attestation: I personally reviewed and interpreted this ECG as follows: ECG interpretation date: 04/30/22 ECG interpretation time: 12:45 Interpretation: Rate: 69 Rhythm: NSR [place]: normal Normal P waves. Normal IRINA. Normal QRS complex. ST T wave : inverted t waves I and aVL, nonspecific lateral leads, no GEOVANI qTC: slightly prolonged prior studies: no acute ischemia The study has been interpreted contemporaneously by me. . Discharge Plan Discharge Clinical Impression: At high risk for falls, Hypomagnesemia, Acute hypokalemia Lumbar strain Qualifiers: Encounter type: initial encounter Qualified Code(s): S39.012A - Strain of muscle, fascia and tendon of lower back, initial encounter Patient Disposition: Home, Self-Care Instructions: Hypokalemia (ED), Acute Low Back Pain (ED), Hypomagnesemia (ED), Fall Prevention (ED) Additional Instructions: return to ED for any worsening symptoms or concerns negative fracture in lower spine, head CT and cervical spine (neck) CT negative as well no UTI given potassium and magnesium in ED please follow up with primary care doctor Prescriptions: New lidocaine 5 % ointment 1 appl topical DAILY PRN (Reason: pain) Qty: 30 0RF Rx Instructions: low back No Action risperidone 1 mg tablet 1 mg PO BEDTIME 90 Days Qty: 90 3RF (DME) Transport wheelchair See Rx Instructions .Route .MEDSUPPLY Qty: 1 0RF Rx Instructions: As directed multivitamin Tablet 1 tab PO DAILY 90 Days Qty: 90 3RF metformin 500 mg tablet 500 mg PO DAILY 90 Days Qty: 90 1RF polyethylene glycol 3350 [Miralax] 17 gram powder in packet 17 g PO BID Qty: 100 0RF (DME) lancets [FreeStyle Lancets] 28 gauge misc See Rx Instructions .ROUTE .MEDSUPPLY Qty: 100 3RF Rx Instructions: As directed check the blood sugar once a day atorvastatin 40 mg tablet 40 mg PO DAILY Qty: 90 3RF cholecalciferol (vitamin D3) 50 mcg (2,000 unit) capsule 50 mcg PO DAILY 30 Days Qty: 30 11RF ursodiol 250 mg tablet 250 mg PO TID Qty: 270 1RF aspirin 81 mg tablet,delayed release (DR/EC) 81 mg PO DAILY Qty: 90 3RF acarbose 100 mg tablet 1 tab PO TID gabapentin 300 mg Tablet Extended Release 24 Hr 300 mg PO QID (DME) pen needle, diabetic [Comfort EZ Pen [place]] 31 gauge x 3/16 needle See Rx Instructions .Route Qty: 100 3RF Rx Instructions: As directed (DME) Walker with seat and wheels See Rx Instructions .Route .MEDSUPPLY Qty: 1 0RF Rx Instructions: As directed lisinopril 20 mg tablet 20 mg PO DAILY 90 Days Qty: 90 1RF Rx Instructions: take in am (DME) DEPENDS SMALL See Rx Instructions .Route .MEDSUPPLY Qty: 120 11RF Rx Instructions: As directed psyllium husk [Fiber (psyllium husk)] 0.52 gram capsule 0.52 g PO BEDTIME PRN (Reason: constipation) 90 Days Qty: 90 3RF sertraline 100 mg tablet 200 mg PO DAILY albuterol sulfate 90 mcg/actuation HFA aerosol inhaler 1 inh inhalation QID PRN (Reason: Shortness Of Breath Or Wheezing) (DME) FreeStyle Lite Strips Strip See Rx Instructions .ROUTE .MEDSUPPLY Qty: 100 11RF Rx Instructions: As directed 3 x/day Referrals: Po,Ludy Minaya MD [Primary Care Provider] - 3 days (if not better)
--- OUTSIDE RECORDS SUMMARY | 2022-04-30 11:24 | XMS_ITS | Continuity of Care Document ---
:1960 Author Organization [facility] Address [address] [place] [address]- Care Team Providers Name Role Phone Geovanna Lima DO Primary Care Physician Encounter [facility] Date(s): 03/27/20 - 04/26/20 [facility] [address] [place] [id number] [facility] Allergies, Adverse Reactions, Alerts Substance Reaction Severity Status Latex hives Active Morphine Sulfate stomach holloway Active Medications [facility]AP Equipment [facility], [facility] 14:18:22 EDT, Compound Start Date: 03/15/18 Status: Orderedcalcium-vitamin D 600 mg-400 intl units oral tablet 0 Refills, Maintenance, 12/27/17 15:03:30 EDT Start Date: 12/27/17 Status: OrderedColace Liquid By Mouth, 2 times a day, 0 Refills, Maintenance, 10/16/17 8:48:02 EDT Start Date: 10/16/17 Status: OrderedFlovent HFA 220 mcg/inh inhalation aerosol 1 puffs = 220 mcg, Inhalation, 2 times a day, # 12 Gm, 0 Refills, Maintenance, 07/22/17 13:37:26, Aerosol Start Date: 07/22/17 Status: Orderedgabapentin 300 mg oral capsule 300 mg, 1, capsule, By Mouth, 2 times a day, Refills 0, Maintenance, 10/16/17 8:47:50 EDT Start Date: 10/16/17 Status: OrderedLipitor 40 mg oral tablet 1 tablet = 40 mg, By Mouth, Daily, # 30 tablet, 0 Refills, Maintenance, Tablet Start Date: 10/16/17 Status: Orderedmidodrine 2.5 mg oral tablet 2.5 mg, 1, tablet, By Mouth, 2 times a day, # 180 tablet, Refills 1, Tot. Refills 1, Maintenance, 04/17/20 13:59:00 EDT, Route to Pharmacy Electronically, [facility], 127, cm, 03/10/20 15:04:00 EDT, Height Start Date: 04/17/20 Stop Date: 10/14/20 Status: OrderedMultivitamin Daily, 0 Refills, Maintenance, 12/27/17 15:02:20 EDT Start Date: 12/27/17 Status: Orderedpantoprazole 40 mg oral delayed release tablet TAKE 1 TABLET BY MOUTH EVERY EVENING Start Date: 09/04/19 Status: OrderedProventil HFA 90 mcg/inh inhalation aerosol with adapter 1 puffs, Inhalation, 4 times a day, PRN for wheezing, # 25 Gm, 0 Refills, Maintenance, Aerosol Start Date: 06/23/11 Status: OrderedRisperDAL 1 mg oral tablet 1 mg, 1, tablet, By Mouth, 2 times a day, # 60 tablet, Refills 0, Maintenance, 10/16/17 8:48:22 EDT Start Date: 10/16/17 Status: Orderedsertraline 100 mg oral tablet 0 Refills, Maintenance, 12/27/17 15:05:18 EDT Start Date: 12/27/17 Status: OrderedSingulair 10 mg oral tablet 1 tablet = 10 mg, By Mouth, Daily before dinner, 0 Refills, Maintenance Start Date: 06/23/11 Status: Ordered Problem List Condition Effective Dates Status Health Status Informant Non-ST elevation [place] Active (NSTEMI)(Confirmed) Anxiety depression(Confirmed) Active Asthma, hx of(Confirmed) Active Chronic kidney disease stage Active 3(Confirmed) Diabetes mellitus type 2(Confirmed) Active Hypercholesterolemia(Confirmed) Active Hypertension(Confirmed) Active Illiterate(Confirmed) Active Lupus erythematosis, Active systemic(Confirmed) Morbid Obesity(Confirmed) Active Orthostatic hypotension(Confirmed) Active ARLINE - Obstructive sleep Active apnea(Confirmed) Vitamin D Deficiency(Confirmed) Active Social History Social History Type Response Smoking Status Never smoker entered on: 09/06/17 Sex
--- OUTSIDE RECORDS SUMMARY | 2022-04-30 11:24 | XMS_ITS | Continuity of Care Document ---
:1960 Author Organization [facility] Address [address] [place] [id number]- Care Team Providers Name Role Phone Geovanna Lima DO Primary Care Physician Encounter [facility] R [id number] Date(s): 03/13/19 - 07/11/[address] [facility] [address] [address] [facility] Attending Physician: Nanci Alston MD Admitting Physician: Nanci Alston MD Allergies, Adverse Reactions, Alerts Substance Reaction Severity Status Latex hives Active Morphine Sulfate stomach holloway Active Medications acarbose 50 mg oral tablet 1 tablet = 50 mg, By Mouth, 3 times a day, # 270 tablet, 0 Refills, Maintenance, 03/05/19 8:08:38 EDT, Tablet Start Date: 03/05/19 Status: OrderedAcetaminophen = 650 mg, 0 Refills, Maintenance, 12/27/17 15:14:08 EDT Start Date: 12/27/17 Status: OrderedamLODIPine 10 mg oral tablet 10 mg, 1, tablet, By Mouth, Daily, Refills 0, Maintenance, 12/27/17 15:12:55 EDT Start Date: 12/27/17 Status: OrderedAspir-Low 81 mg oral delayed release tablet 0 Refills, Maintenance, 12/27/17 15:09:07 EDT Start Date: 12/27/17 Status: OrderedBaclofen By Mouth, 3 times a day, 0 Refills, Maintenance, 10/16/17 8:48:35 EDT Start Date: 10/16/17 Status: OrderedBiPAP Equipment BiPAP12/7, Maintenance, [facility], 03/15/18 14:18:22 EDT, Compound Start Date: 03/15/18 Status: OrderedCalcium 600 +D By Mouth, 0 Refills, Maintenance, 12/27/17 15:07:44 EDT Start Date: 12/27/17 Status: Orderedcalcium-vitamin D 600 mg-400 intl units oral tablet 0 Refills, Maintenance, 12/27/17 15:03:30 EDT Start Date: 12/27/17 Status: OrderedColace Liquid By Mouth, 2 times a day, 0 Refills, Maintenance, 10/16/17 8:48:02 EDT Start Date: 10/16/17 Status: OrderedDextrose = 25 Gm, IV Infusion, Once, 0 Refills, Maintenance, 10/16/17 8:47:36 EDT Start Date: 10/16/17 Status: OrderedFlovent HFA 220 mcg/inh inhalation aerosol 1 puffs = 220 mcg, Inhalation, 2 times a day, # 12 Gm, 0 Refills, Maintenance, 07/22/17 13:37:26, Aerosol Start Date: 07/22/17 Status: Orderedgabapentin 300 mg oral capsule 300 mg, 1, capsule, By Mouth, 2 times a day, Refills 0, Maintenance, 10/16/17 8:47:50 EDT Start Date: 10/16/17 Status: OrderedHydrALAZINE 0 Refills, Maintenance, 11/27/18 8:32:52 EDT Start Date: 11/27/18 Status: OrderedJardiance 10 mg oral tablet 1 tablet = 10 mg, By Mouth, Daily in AM, # 30 tablet, 0 Refills, Maintenance, 07/19/17 3:10:38, Tablet Start Date: 07/19/17 Status: OrderedLantus 100 u/ml subcutaneous solution = 20 units, Subcutaneous Infusion, Daily, 0 Refills, Maintenance, 07/04/13 11:07:54 Start Date: 07/04/13 Status: OrderedLasix 40 mg oral tablet 40 mg, 1, tablet, By Mouth, 2 times a day, # 60 tablet, Refills 0, Tot. Refills 0, Maintenance, 07/22/17 13:40:57, Route to Pharmacy Electronically, [id number], [facility] Start Date: 07/22/17 Status: OrderedLipitor 40 mg oral tablet 1 tablet = 40 mg, By Mouth, Daily, # 30 tablet, 0 Refills, Maintenance, Tablet Start Date: 10/16/17 Status: Orderedlisinopril 5 mg oral tablet 5 mg, 1, tablet, By Mouth, Daily, # 30 tablet, Refills 0, Maintenance, 07/19/17 3:11:33 Start Date: 07/19/17 Status: Orderedmeclizine 25 mg oral tablet 1 tablet = 25 mg, By Mouth, 2 times a day, # 60 tablet, 0 Refills, Maintenance, 10/16/17 8:49:13 EDT, Tablet Start Date: 10/16/17 Status: Orderedmidodrine 2.5 mg oral tablet 2.5 mg, 1, tablet, By Mouth, 2 times a day, Did not tolerate 5 mg BID dose decreased, # 180 tablet, Refills 3, Tot. Refills 3, Maintenance, 03/27/19 10:31:29 EDT, Route to Pharmacy Electronically, [id number], [facility] Start Date: 03/27/19 Stop Date: 03/21/20 Status: OrderedMultivitamin Daily, 0 Refills, Maintenance, 12/27/17 15:02:20 EDT Start Date: 12/27/17 Status: OrderedNovoLOG 100 units/mL injectable solution Subcutaneous Infusion, 3 times a day before meals, 0 Refills, Maintenance, 10/16/17 8:47:15 EDT Start Date: 10/16/17 Status: OrderedNovoLOG 100 units/mL subcutaneous solution See Instructions, Subcutaneous Injection, Use as directed for Diabetes mellitus type 1. (Max Dose = 50 units/day), 10 mL vials, # 3 vials, 5 Refills, Maintenance, 07/19/17 3:08:25 Start Date: 07/19/17 Stop Date: 08/18/17 Status: Orderedpilocarpine 7.5 mg oral tablet TAKE ONE TABLET BY MOUTH EVERY MORNING IN THE EVENING AND AT BEDTIME Start Date: 07/19/17 Status: OrderedPlaquenil 200 mg oral tablet 200 mg, 1, tablet, By Mouth, Daily, Refills 0, Maintenance, 10/16/17 8:46:45 EDT Start Date: 10/16/17 Status: OrderedProtonix 40 mg oral granule 1 each = 40 mg, By Mouth, 2 times a day, # 60 each, 0 Refills, Maintenance, 10/16/17 8:48:52 EDT, Granule Start Date: 10/16/17 Status: OrderedProventil HFA 90 mcg/inh inhalation aerosol with adapter 1 puffs, Inhalation, 4 times a day, PRN for wheezing, # 25 Gm, 0 Refills, Maintenance, Aerosol Start Date: 06/23/11 Status: OrderedRisperDAL 1 mg oral tablet 1 mg, 1, tablet, By Mouth, 2 times a day, # 60 tablet, Refills 0, Maintenance, 10/16/17 8:48:22 EDT Start Date: 10/16/17 Status: OrderedrisperiDONE 1 mg oral tablet 1 mg, 1, tablet, By Mouth, Daily at bedtime, TAKE 1 TABLET ONCE DAILY AT BEDTIME Start Date: 07/19/17 Status: Orderedsertraline 100 mg oral tablet 0 Refills, Maintenance, 12/27/17 15:05:18 EDT Start Date: 12/27/17 Status: OrderedSingulair 10 mg oral tablet 1 tablet = 10 mg, By Mouth, Daily before dinner, 0 Refills, Maintenance Start Date: 06/23/11 Status: Orderedsulindac 200 mg oral tablet 0 Refills, Maintenance, 12/27/17 15:16:09 EDT Start Date: 12/27/17 Status: OrderedSymbicort 160mcg/4.5mcg Inhaler 2, puffs, Inhalation, 2 times a day, Refills 0, Maintenance, 12/27/17 15:11:11 EDT Start Date: 12/27/17 Status: Orderedthiamine 100 mg oral tablet 100 mg, 1, tablet, By Mouth, Daily, Refills 0, Maintenance, 10/16/17 8:47:05 EDT Start Date: 10/16/17 Status: OrderedTrulicity Pen 1.5 mg/0.5 mL subcutaneous solution = 1.5 mg, Subcutaneous Injection, Every week, INJECT ONE PEN (=1.5MG) SUBCUTANEOUSLY ONCE A WEEK DIRECTED Start Date: 07/19/17 Status: OrderedVitamin A = 10,000 mg, 0 Refills, Maintenance, 12/27/17 15:03:46 EDT Start Date: 12/27/17 Status: Ordered Problem List Condition Effective Dates Status Health Status Informant Non-ST elevation [place] Active (NSTEMI)(Confirmed) Anxiety depression(Confirmed) Active Asthma, hx of(Confirmed) Active Chronic kidney disease stage Active 3(Confirmed) Diabetes mellitus type 2(Confirmed) Active Hypercholesterolemia(Confirmed) Active Hypertension(Confirmed) Active Illiterate(Confirmed) Active Lupus erythematosis, Active systemic(Confirmed) Morbid Obesity(Confirmed) Active ARLINE - Obstructive sleep Active apnea(Confirmed) Vitamin D Deficiency(Confirmed) Active Social History Social History Type Response Smoking Status Never smoker entered on: 09/06/17 Sex
--- OUTSIDE RECORDS SUMMARY | 2022-04-30 11:24 | XMS_ITS | Continuity of Care Document ---
:1960 Author Organization [facility] pt Address [address] [place] [address]- Care Team Providers Name Role Phone Geovanna Lima DO Primary Care Physician [place] [facility] [place] 09/25/20 - 10/25/20 [facility] [address] [place] [address]- Attending Physician: Judy Fu Admitting Physician: AdmtrJudy Referring Physician: Admtr, Ar8 Allergies, Adverse Reactions, Alerts Substance Reaction Severity Status Latex hives Active Morphine Sulfate stomach holloway Active Medications acarbose 100 mg oral tablet TAKE 1 TABLET BY MOUTH THREE TIMES DAILY Start Date: 10/14/20 Status: OrderedBiPAP Equipment BiPAP12/7, Maintenance, [facility], 03/15/18 14:18:22 EDT, Compound Start Date: 03/15/18 Status: Orderedcalcium-vitamin D 600 mg-400 intl units oral tablet 0 Refills, Maintenance, 12/27/17 15:03:30 EDT Start Date: 12/27/17 Status: OrderedFlovent HFA 220 mcg/inh inhalation aerosol 1 puffs = 220 mcg, Inhalation, 2 times a day, # 12 Gm, 0 Refills, Maintenance, 07/22/17 13:37:26, Aerosol Start Date: 07/22/17 Status: Orderedfludrocortisone 0.1 mg oral tablet 0.5 tablet = 0.05 mg, By Mouth, Daily Start Date: 10/14/20 Status: Orderedgabapentin 300 mg oral capsule TAKE 1 CAPSULE BY MOUTH TWICE DAILY AND TAKE 2 CAPSULES AT BEDTIME Start Date: 10/14/20 Status: OrderedmetFORMIN 500 mg oral tablet TAKE 1 TABLET BY MOUTH EVERY DAY Start Date: 10/14/20 Status: Orderedmidodrine 2.5 mg oral tablet 2.5 mg, 1, tablet, By Mouth, 2 times a day, # 180 tablet, Refills 1, Tot. Refills 1, Maintenance, 04/17/20 13:59:00 EDT, Route to Pharmacy Electronically, [facility], 127, cm, 03/10/20 15:04:00 EDT, Height Start Date: 04/17/20 Stop Date: 10/14/20 Status: OrderedrisperiDONE 1 mg oral tablet TAKE 1 TABLET BY MOUTH AT BEDTIME Start Date: 10/14/20 Status: Orderedsertraline 100 mg oral tablet 0 Refills, Maintenance, 12/27/17 15:05:18 EDT Start Date: 12/27/17 Status: Orderedsertraline 100 mg oral tablet TAKE 2 TABLETS BY MOUTH ONCE A DAY IN THE MORNING Start Date: 10/14/20 Status: Orderedursodiol 250 mg oral tablet TAKE 1 TABLET BY MOUTH THREE TIMES DAILY Start Date: 10/14/20 Status: OrderedVitamin D3 2000 intl units oral capsule TAKE 1 CAPSULE BY MOUTH EVERY DAY Start Date: 10/14/20 Status: Ordered Problem List Condition Effective Dates Status Health Status Informant Non-ST elevation [place] Active (NSTEMI)(Confirmed) Anxiety depression(Confirmed) Active Asthma, hx [...]
--- OUTSIDE RECORDS SUMMARY | 2022-04-30 11:24 | XMS_ITS | Continuity of Care Document ---
:1960 Author Organization [facility] Address [address] [place] [address]- Care Team Providers Name Role Phone Geovanna Lima DO Primary Care Physician Encounter [facility] [place] Date(s): 12/29/20 - 01/28/[address] [id number] Allergies, Adverse Reactions, Alerts Substance Reaction Severity Status Latex hives Active Morphine Sulfate stomach holloway Active Medications acarbose 100 mg oral tablet TAKE 1 TABLET BY MOUTH THREE TIMES DAILY Start Date: 10/14/20 Status: OrderedBiPAP Equipment BiPAP12/7, Maintenance, [facility], 03/15/18 14:18:22 EDT, Compound Start Date: 03/15/18 [...] 04/17/20 13:59:00 EDT, Route to Pharmacy Electronically, [facility], 127, cm, 03/10/20 15:04:00 EDT, [...] Dates Status Health Status Informant Non-ST elevation [place] Active (NSTEMI)(Confirmed) Anxiety depression(Confirmed) Active Asthma, hx [...]
--- OUTSIDE RECORDS SUMMARY | 2022-04-30 11:24 | XMS_ITS | Continuity of Care Document ---
:1960 Author Organization [facility] Address [address] [place] [address]- Care Team Providers Name Role Phone Geovanna Lima DO Primary Care Physician [place] [facility] [place] 11/26/19 - 12/03/19 [facility] [address] [address] [facility] Attending Physician: Consuelo Dutton MD Admitting Physician: Consuelo Dutton MD Referring Physician: Geovanna Lima DO Allergies, Adverse Reactions, Alerts Substance Reaction Severity Status Latex hives Active Morphine Sulfate stomach holloway Active Medications BiPAP Equipment BiPAP12/7, Maintenance, [facility], 03/15/18 14:18:22 EDT, [...] 10:31:29 EDT, Route to Pharmacy Electronically, [id number], [employer]. Start Date: 03/27/19 Stop Date: 03/21/20 Status: [...] Dates Status Health Status Informant Non-ST elevation [place] Active (NSTEMI)(Confirmed) Anxiety depression(Confirmed) Active Asthma, hx [...]
--- OUTSIDE RECORDS SUMMARY | 2022-04-30 11:24 | XMS_ITS | Continuity of Care Document ---
:1960 Author Organization [facility] Address [address] [facility], 3rd Floor, [address] [place] [address]- Care Team Providers Name Role Phone Geovanna Lima DO Primary Care Physician En[place] [facility] [place] Date(s): 10/13/20 - 11/12/20 [facility] [address] [facility], 3rd Floor, [address] [place] [id number] Allergies, Adverse Reactions, Alerts Substance [...] tablet, Refills 1, Tot. Refills 1, Maintenance, 10/09/20 13:59:00 EDT, Route to Pharmacy Electronically, [facility], 127, cm, 03/10/20 15:04:00 EDT, [...] Dates Status Health Status Informant Non-ST elevation [place] Active (NSTEMI)(Confirmed) Anxiety depression(Confirmed) Active Asthma, hx [...]
--- OUTSIDE RECORDS SUMMARY | 2022-04-30 11:24 | XMS_ITS | Continuity of Care Document ---
:1960 Author Organization [facility] Address [address] [place] [address]- Care Team Providers Name Role Phone Geovanna Lima DO Primary Care Physician En[place] [facility] [place] Date(s): 04/17/20 - 05/17/20 [facility] [address] [place] [address] Allergies, Adverse Reactions, Alerts Substance Reaction Severity Status Latex hives Active Morphine Sulfate stomach holloway Active Medications BiPAP Equipment BiPAP1/, Maintenance, [facility], 03/15/18 14:18:22 EDT, Compound Start Date: 03/15/18 [...] 04/17/20 13:59:00 EDT, Route to Pharmacy Electronically, [facility], 127, cm, 03/10/20 15:04:00 EDT, [...] Dates Status Health Status Informant Non-ST elevation [place] Active (NSTEMI)(Confirmed) Anxiety depression(Confirmed) Active Asthma, hx [...]
--- OUTSIDE RECORDS SUMMARY | 2022-04-30 11:24 | XMS_ITS | Continuity of Care Document ---
:1960 Author Organization [facility] Address [address] [place] [address]- Care Team Providers Name Role Phone Geovanna Lima DO Primary Care Physician Encounter [facility] [place] Date(s): 09/04/19 - 09/14/19 [facility] [address] [place] [address] [facility] Attending Physician: AdmJudy ngo Admitting Physician: Admtr, Ar8 Referring Physician: Admtr, Ar8 Allergies, Adverse Reactions, Alerts Substance Reaction Severity Status Latex hives Active Morphine Sulfate stomach holloway Active Medications BiPAP Equipment BiPAP1/, [facility], 03/15/18 14:18:22 EDT, Compound Start Date: 03/15/18 [...] 10:31:29 EDT, Route to Pharmacy Electronically, [id number], [employer]. Start Date: 03/27/19 Stop Date: 03/21/20 Status: [...] Dates Status Health Status Informant Non-ST elevation [place] Active (NSTEMI)(Confirmed) Anxiety depression(Confirmed) Active Asthma, hx [...]
--- OUTSIDE RECORDS SUMMARY | 2022-04-30 11:24 | XMS_ITS | Continuity of Care Document ---
:1960 Author Organization [facility] Address [address] [place] [address]- Care Team Providers Name Role Phone Geovanna Lima DO Primary Care Physician Encounter [facility] [place] Date(s): 09/01/21 - 09/05/[address] [address] Encounter Diagnosis CVA (cerebrovascular accident) (Final) - 09/01/21 Discharge Disposition: A-D/C Home Attending Physician: Zayda DUDLEY, [facility] Admitting Physician: Alec Garland MD Referring Physician: Not on Staff, Referring MD Allergies, Adverse Reactions, Alerts Substance Reaction Severity Status sulfa drugs Active Latex hives Active Morphine Sulfate stomach holloway Active Immunizations Given and Recorded Vaccine Date Status Refusal Reason SARS-CoV-2 (COVID-19) mRNA-1273 vaccine 09/24/20 Recorded SARS-CoV-2 (COVID-19) mRNA-1273 vaccine 08/27/20 Recorded Medications acarbose 100 mg oral tablet TAKE 1 TABLET BY MOUTH THREE TIMES DAILY Start Date: 10/14/20 Status: OrderedamLODIPine 10 mg oral tablet 1 tablet = 10 mg, By Mouth, Daily, # 30 tablet, 0 Refills, Maintenance, 09/01/21 14:59:00 EST, Tablet, Partial fill upon patient request if the prescription is for a schedule II opioid drug. Start Date: 09/01/21 Status: OrderedAspirin Low Dose 81 mg oral delayed release tablet 1 tablet = 81 mg, By Mouth, Daily, # 30 tablet, 0 Refills, Maintenance, 09/01/21 14:59:00 EST, EC Tablet, Partial fill upon patient request if the prescription is for a schedule II opioid drug. Start Date: 09/01/21 Status: Orderedatorvastatin 40 mg oral tablet 1 tablet = 40 mg, By Mouth, Daily, # 90 tablet, 0 Refills, Maintenance, 09/01/21 14:59:00 EST, Tablet, Partial fill upon patient request if the prescription is for a schedule II opioid drug. Start Date: 09/01/21 Status: OrderedBiPAP Equipment BiPAP12/7, Maintenance, [facility], 03/15/18 14:18:22 EDT, Compound Start Date: 03/15/18 Status: Orderedcalcium-vitamin D 600 mg-400 intl units oral tablet 0 Refills, Maintenance, 12/27/17 15:03:30 EDT Start Date: 12/27/17 Status: Orderedferrous sulfate 325 mg oral tablet 1 tablet = 325 mg, By Mouth, 2 times a day, 0 Refills, Maintenance, 09/02/21 15:04:00 EST, Partial fill upon patient request if the prescription is for a schedule II opioid drug. Start Date: 09/02/21 Status: OrderedFlovent HFA 220 mcg/inh inhalation aerosol 1 puffs = 220 mcg, Inhalation, 2 times a day, # 12 Gm, 0 Refills, Maintenance, 07/22/17 13:37:26, Aerosol Start Date: 07/22/17 Status: Orderedfludrocortisone 0.1 mg oral tablet 1 tablet = 0.1 mg, By Mouth, Daily, # 30 tablet, 0 Refills, Maintenance, 09/01/21 14:59:00 EST, Tablet, Partial fill upon patient request if the prescription is for a schedule II opioid drug. Start Date: 09/01/21 Status: Orderedgabapentin 300 mg oral capsule 300 mg, Capsule, By Mouth, 09/05/21 9:00:00 EST Start Date: 09/05/21 Stop Date: 09/05/21 Status: Completedgabapentin 300 mg oral capsule TAKE 1 CAPSULE BY MOUTH TWICE DAILY Start Date: 10/14/20 Status: Orderedlisinopril 20 mg oral tablet 20 mg, 1, tablet, By Mouth, Daily, # 30 tablet, Refills 0, Maintenance, 09/02/21 15:03:00 EST, Partial fill upon patient request if the prescription is for a schedule II opioid drug. Start Date: 09/02/21 Status: OrderedmetFORMIN 500 mg oral tablet TAKE 1 TABLET BY MOUTH EVERY DAY Start Date: 10/14/20 Status: OrderedPlavix 75 mg oral tablet 75 mg, 1, tablet, By Mouth, Daily, # 30 tablet, Refills 2, Tot. Refills 2, Maintenance, 09/05/21 14:53:00 EST, Route to Pharmacy Electronically, [facility]/pharmacy #[id number], Partial fill upon patient request ifthe prescription is for a schedule II opioid drug... Start Date: 09/05/21 Stop Date: 12/04/21 Status: OrderedrisperiDONE 1 mg oral tablet 1 mg, 1, tablet, By Mouth, Daily at bedtime, # 30 tablet, Refills 0, Maintenance, 09/01/21 15:01:00 EST, Partial fill upon patient request if the prescription is for a schedule II opioid drug. Start Date: 09/01/21 Status: Orderedursodiol 250 mg oral tablet TAKE 1 TABLET BY MOUTH THREE TIMES DAILY Start Date: 10/14/20 Status: Ordered Problem List Condition Effective Dates Status Health Status Informant Non-ST elevation [place] Active (NSTEMI)(Confirmed) Anxiety depression(Confirmed) Active Asthma, hx of(Confirmed) Active Chronic kidney disease stage Active 3(Confirmed) Diabetes mellitus type 2(Confirmed) Active Hypercholesterolemia(Confirmed) Active Hypertension(Confirmed) Active Illiterate(Confirmed) Active Lupus erythematosis, Active systemic(Confirmed) Morbid Obesity(Confirmed) Active Orthostatic hypotension(Confirmed) Active ARLINE - Obstructive sleep Active apnea(Confirmed) Vitamin D Deficiency(Confirmed) Active Vital Signs Most recent to oldest 1 2 3 [Reference Range]: Height 127 cm 127 cm 127 cm (09/05/21 11:33 AM) (09/05/21 8:12 AM) (09/04/21 3: 56 PM) Weight 86.6 kg (09/03/21 4:44 PM) Oxygen Saturation [94-100 %] 99 % 99 % 97 % (09/05/21 11:33 AM) (09/05/21 8:12 AM) (09/05/21 4: 24 AM) Pulse Rate [55-90 bpm] 56 bpm 58 bpm 62 bpm (09/05/21 11:33 AM) (09/05/21 8:12 AM) (09/05/21 4: 24 AM) Blood Pressure [90-138/55-84 143/58 mm Hg 147/57 mm Hg 130 /58 mm Hg mm Hg] *H* *H* (09/05/21 4:24 AM ) (09/05/21 11:33 AM) (09/05/21 8:12 AM) Respiratory Rate [16-30 18 br/min 16 br/min 18 br/mi n br/min] (09/05/21 11:33 AM) (09/05/21 8:33 AM) (09/05/21 8: 12 AM) Temperature [96.8-100.4 DegF] 98.4 DegF 98.3 DegF 97 .0 DegF (09/05/21 11:33 AM) (09/05/21 8:12 AM) (09/05/21 4: 24 AM) Liters per Minute 4 L/min (09/03/21 5:45 PM) Mode of Delivery (Oxygen) Room air Room air Room a ir (09/05/21 11:33 AM) (09/05/21 8:12 AM) (09/05/21 4: 24 AM) Blood pressure sites Arm, right Arm, right Arm, right (09/05/21 11:33 AM) (09/05/21 8:12 AM) (09/05/21 4: 24 AM) Temperature Route Oral Oral Temporal (09/05/21 11:33 AM) (09/05/21 8:12 AM) (09/05/21 4: 24 AM) Social History Social History Type Response Smoking Status Never smoker entered on: 09/06/17 Sex
--- OUTSIDE RECORDS SUMMARY | 2022-04-30 11:24 | XMS_ITS | Continuity of Care Document ---
:1960 Author Organization [facility] Address [address] [place] [address]- Care Team Providers Name Role Phone Geovanna Lima DO Primary Care Physician Encounter [facility] [place] Date(s): 09/25/20 - 10/02/20 [facility] [address] [place] [address]- Attending Physician: Korina Baarjas MD Referring Physician: Geovanna Lima DO Allergies, [...] 04/17/20 13:59:00 EDT, Route to Pharmacy Electronically, [facility], 127, cm, 03/10/20 15:04:00 EDT, [...] Dates Status Health Status Informant Non-ST elevation [place] Active (NSTEMI)(Confirmed) Anxiety depression(Confirmed) Active Asthma, hx [...]
--- OUTSIDE RECORDS SUMMARY | 2022-04-30 11:24 | XMS_ITS | Continuity of Care Document ---
:1960 Author Organization [facility] Address Unavailable , Care Team Providers Name Role Phone Geovanna Lima DO Primary Care Physician Encounter [facility] [place] Date(s): 10/19/21 - 11/18/21 [facility] Attending Physician: Judy Fu Admitting Physician: Judy Fu Referring Physician: Judy Fu Allergies, Adverse Reactions, Alerts Substance Reaction Severity [...] Date: 09/01/21 Status: OrderedBiPAP Equipment BiPAP12/7, Maintenance, [facility], [...] 09/01/21 Status: Orderedgabapentin 300 mg oral capsule TAKE [...] 09/05/21 14:53:00 EST, Route to Pharmacy Electronically, [facility]/pharmacy #[id number], Partial fill upon patient request ifthe prescription [...] Dates Status Health Status Informant Non-ST elevation [place] Active (NSTEMI)(Confirmed) Anxiety depression(Confirmed) Active Asthma, hx [...]
--- OUTSIDE RECORDS SUMMARY | 2022-04-30 11:25 | XMS_ITS | Continuity of Care Document ---
:1960 Author Organization [facility] Address [address] [place] [address]- Care Team Providers Name Role Phone Geovanna Lima DO Primary Care Physician En[place] [facility] [place] Date(s): 09/15/20 - 10/15/20 [facility] [address] [place] [id number] Allergies, Adverse Reactions, Alerts Substance Reaction Severity Status Latex hives Active Morphine Sulfate stomach holloway Active Medications acarbose 100 mg oral tablet TAKE 1 TABLET BY MOUTH THREE TIMES DAILY Start Date: 10/14/20 Status: OrderedBiPAP Equipment BiPAP12/7, Maintenance, [facility], 03/15/18 14:18:22 EDT, Compound Start Date: 03/15/18 [...] 04/17/20 13:59:00 EDT, Route to Pharmacy Electronically, [facility], 127, cm, 03/10/20 15:04:00 EDT, [...] Dates Status Health Status Informant Non-ST elevation [place] Active (NSTEMI)(Confirmed) Anxiety depression(Confirmed) Active Asthma, hx [...]
--- OUTSIDE RECORDS SUMMARY | 2022-04-30 11:25 | XMS_ITS | Continuity of Care Document ---
:1960 Author Organization [facility] Address [address] [place] [address]- Care Team Providers Name Role Phone Geovanna Lima DO Primary Care Physician [place] [facility] [id number] Date(s): 06/11/19 - 08/04/19 [facility] [address] [address] [facility] Attending Physician: Consuelo Dutton MD Admitting Physician: [...] Date: 10/16/17 Status: OrderedBiPAP Equipment BiPAP12/7, Maintenance, [facility], 03/15/18 14:18:22 EDT, Compound Start Date: 03/15/18 [...] Maintenance, 07/22/17 13:40:57, Route to Pharmacy Electronically, [id number], [facility] - Start Date: 07/22/17 Status: OrderedLipitor 40 mg [...] 10:31:29 EDT, Route to Pharmacy Electronically, [id number][facility] Start Date: 03/27/19 Stop Date: 03/21/20 Status: [...] Dates Status Health Status Informant Non-ST elevation [place] Active (NSTEMI)(Confirmed) Anxiety depression(Confirmed) Active Asthma, hx [...]
--- OUTSIDE RECORDS SUMMARY | 2022-04-30 11:25 | XMS_ITS | Continuity of Care Document ---
:1960 Author Organization [facility] Address [address] [place] [address]- Care Team Providers Name Role Phone Geovanna Lima DO Primary Care Physician Encounter [facility] [place] Date(s): 11/27/20 - 05/08/21 [facility] [address] [address] Attending Physician: Consuelo Dutton MD Admitting Physician: Consuelo Dutton MD Referring Physician: Geovanna Lima DO Allergies, Adverse Reactions, Alerts Substance Reaction Severity Status Latex hives Active Morphine Sulfate stomach holloway Active Medications acarbose 100 mg oral tablet TAKE 1 TABLET BY MOUTH THREE TIMES DAILY Start Date: 10/14/20 Status: OrderedBiPAP Equipment BiPAP12/7, Maintenance, [facility], 03/15/18 14:18:22 EDT, Compound Start Date: [...] 04/17/20 13:59:00 EDT, Route to Pharmacy Electronically, [facility], 127, cm, 03/10/20 15:04:00 EDT, [...] Dates Status Health Status Informant Non-ST elevation [place] Active (NSTEMI)(Confirmed) Anxiety depression(Confirmed) Active Asthma, hx [...]
--- OUTSIDE RECORDS SUMMARY | 2022-04-30 11:25 | XMS_ITS | Continuity of Care Document ---
:1960 Author Organization [facility] Address [address] [place] [address]- Care Team Providers Name Role Phone Geovanna Lima DO Primary Care Physician [place] [facility] [place]): 03/10/20 - 04/09/20 [facility] [address] [place] [address] [facility] Attending Physician: Admtr, Judy Admitting Physician: Admtr, Ar8 Referring Physician: Admtr, Ar8 Allergies, Adverse Reactions, Alerts Substance Reaction Severity Status Latex hives Active Morphine Sulfate stomach holloway Active Medications BiPAP Equipment BiPAP1/7, Maintenance, [facility], 03/15/18 14:18:22 EDT, Compound Start Date: 03/15/18 [...] 10:31:29 EDT, Route to Pharmacy Electronically, [id number], [employer]. Start Date: 03/27/19 Stop Date: 03/21/20 Status: [...]
--- OUTSIDE RECORDS SUMMARY | 2022-04-30 11:25 | XMS_ITS | Continuity of Care Document ---
:1960 Author Organization [facility] Address [address] [place] [address]- Care Team Providers Name Role Phone Geovanna Lima DO Primary Care Physician [place] [facility] [place] 11/13/20 [facility] [address] [place] [address]- Attending Physician: AdmJudy ngo Admitting Physician: Admtr, Judy Referring Physician: Admtr, Ar8 Allergies, Adverse Reactions, Alerts Substance Reaction Severity Status Latex hives Active Morphine Sulfate stomach holloway Active Medications acarbose 100 mg oral tablet TAKE 1 TABLET BY MOUTH THREE TIMES DAILY Start Date: 10/14/20 Status: OrderedBiPAP Equipment BiPAP12/7, Maintenance, [facility] [...] 04/17/20 13:59:00 EDT, Route to Pharmacy Electronically, [facility], 127, cm, 03/10/20 15:04:00 EDT, [...] Dates Status Health Status Informant Non-ST elevation [place] Active (NSTEMI)(Confirmed) Anxiety depression(Confirmed) Active Asthma, hx [...]
--- OUTSIDE RECORDS SUMMARY | 2022-04-30 11:25 | XMS_ITS | Continuity of Care Document ---
:1960 Author Organization [facility] Address [address] [place] [address]- Care Team Providers Name Role Phone Geovanna Lima DO Primary Care Physician Encounter [facility] [place] Date(s): 03/03/20 - 04/08/20 [facility] [address] [place] [address] [facility] Attending Physician: Ange Shannon NP Admitting Physician: Mirtha MUNSON, Ange Referring Physician: Geovanna Lima DO Allergies, Adverse Reactions, Alerts Substance Reaction Severity Status Latex hives Active Morphine Sulfate stomach holloway Active Medications BiPAP Equipment BiPAP12/7, [facility], 03/15/18 14:18:22 EDT, Compound Start [...] 10:31:29 EDT, Route to Pharmacy Electronically, [id number], [email or web address]. Start Date: 03/27/19 Stop Date: 03/21/20 Status: [...] Dates Status Health Status Informant Non-ST elevation [place] Active (NSTEMI)(Confirmed) Anxiety depression(Confirmed) Active Asthma, hx [...]
--- OUTSIDE RECORDS SUMMARY | 2022-04-30 11:25 | XMS_ITS | Continuity of Care Document ---
:1960 Author Organization [facility] Address [address] [place] [address]- Care Team Providers Name Role Phone Geovanna Lima DO Primary Care Physician [place] [facility] [id number] Date(s): 11/26/19 - 12/26/19 [facility] [address] [address] [facility] Attending Physician: Admjeni, Judy Admitting Physician: AdmtrJudy Referring Physician: Admtr, Ar8 Allergies, Adverse Reactions, Alerts Substance Reaction Severity Status Latex hives Active Morphine Sulfate stomach holloway Active Medications BiPAP Equipment BiPAP12/7, [facility], 03/15/18 14:18:22 EDT, Compound Start Date: [...] 10:31:29 EDT, Route to Pharmacy Electronically, [id number], [employer]. Start Date: 03/27/19 Stop Date: 03/21/20 Status: [...] Dates Status Health Status Informant Non-ST elevation [place] Active (NSTEMI)(Confirmed) Anxiety depression(Confirmed) Active Asthma, hx [...]
--- OUTSIDE RECORDS SUMMARY | 2022-04-30 11:25 | XMS_ITS | Continuity of Care Document ---
:1960 Author Organization [facility] Address Unavailable , Care Team Providers Name Role Phone Geovanna Lima DO Primary Care Physician [place] [facility] [place]19[place]21 [place] 10/26/21 [facility] Attending Physician: Maria G Rodriguez MD, Cleo Referring Physician: Riley Escalante Allergies, Adverse Reactions, Alerts Substance Reaction Severity [...] drug. Start Date: 09/01/21 Status: OrderedBiPAP Equipment BiPAP1/7, Maintenance, [facility], 03/15/18 14:18:22 EDT, Compound Start Date: 03/15/18 [...] 09/05/21 14:53:00 EST, Route to Pharmacy Electronically, [facility]/pharmacy #[id number], Partial fill upon patient request ifthe prescription [...]
[2022-04-30 11:56] LABS: COVID-19 Test Negative (Negative); IDNOW Serial# 16C4AD1C
[2022-04-30 12:32] LABS: Basophils Percent Auto 0.7 % (0-2); Eosinophils Absolute Auto 0.1 X10*3/uL (0.0-0.4); Eosinophils Percent Auto 2.4 % (0-4); Hematocrit 39.5 % (37.0-47.0); Hemoglobin 12.1 g/dl (12.0-16.0); Imm Gran Abs Auto 0.02 X10*3/uL (0.00-0.03); Imm Gran Pct Auto 0.4 % (0.0-0.4); Lymphocytes Absolute Auto 1.7 X10*3/uL (1.2-4.9); Mean Corpuscular HGB Conc 30.6 g/dl (31.0-35.0); Mean Corpuscular Hemoglobin 24.2 pg (27.0-33.0); Mean Corpuscular Volume 78.8 fL (80.0-98.0); Mean Platelet Volume 12.5 fL (9.4-12.3); Monocytes Absolute Auto 0.5 X10*3/uL (0.1-1.2); Monocytes Percent Auto 8.5 % (2-11); Neutrophils Absolute Auto 3.1 x10*3/uL (2.0-8.3); Platelet Count 216 X10*3/uL (160-400); Red Blood Count 5.01 X10*6/uL (4.20-5.50); Red Cell Distribution Width 15.9 % (11.0-16.0); White Blood Count 5.4 X10*3/uL (4.8-10.8)
[2022-04-30 12:37] LABS: INTERNATIONAL NORM RATIO 1.2 (0.9-1.1); Prothrombin Time 14.1 SEC (10.0-13.1)
[2022-04-30 12:55] LABS: Alanine Aminotransferase 53 U/L (0-31); Albumin Level 3.7 g/dL (3.5-5.0); Alkaline Phosphatase 343 U/L (39-117); Anion Gap 15 (12-20); Aspartate Amino Transferase 70 U/L (5-31); Bilirubin Direct < 0.2 mg/dL (0.0-0.5); Bilirubin Total 0.3 mg/dL (0.0-1.0); Blood Urea Nitrogen 15 mg/dL (9-16); Calcium 8.8 mg/dL (8.4-10.2); Carbon Dioxide 27 mmol/L (22-29); Chloride 103 mmol/L (96-108); Creatinine Clr Calc Pharmacy 65.8; Estimated Glomerular Filt Rate > 60; Glucose Random 103 mg/dL (60-115); Lipase 11 U/L (8-78); Magnesium 1.3 mg/dL (1.6-2.6); Potassium 3.1 mmol/L (3.3-5.1); Sodium 142 mmol/L (135-145); Total Protein 7.5 g/dL (6.5-8.0)
[2022-04-30] MEDS: Magnesium Sulfate/H2O 2 GM/50 ML PIGGYBACK IV (13:27)
[2022-04-30] MEDS: Potassium Chloride Packet 20 MEQ PACKET 40 MEQ PO (13:27)
[2022-04-30 13:44] VITALS: BP 187/78; PULSE 70
[2022-04-30 13:47] LABS: Appearance Urine Clear; Color Urine Yellow; Glucose Urine UA Negative (Negative); Leukocyte Esterase Urine Negative (Negative); Nitrite Urine Negative (Negative); Urine Blood Negative (Negative); Urine Ketones Negative (Negative); Urine Protein Negative (Neg-Trace)
[2022-04-30] MEDS: hydrALAZINE HCl 20 MG/ML VIAL 5 MG IVPUSH (14:01)
[2022-04-30 14:25] VITALS: BP 167/77
[2022-04-30 14:50] LABS: Troponin-I High Sensitivity 14.7 ng/L (<3.5-17.0)
== END 2022-04-30 14:34 | disposition home or self-care (01) ==
PROVIDERS: Emergency Provider Emergency Medicine; PCP Internal Medicine
DX: S39.012A Strain of muscle, fascia and tendon of lower back, initial encounter (principal); W19.XXXA Unspecified fall, initial encounter; E83.42 Hypomagnesemia; E87.6 Hypokalemia; R29.6 Repeated falls; Z91.81 History of falling; Z20.822 Contact with and (suspected) exposure to COVID-19; I69.320 Aphasia following cerebral infarction; I69.354 Hemiplegia and hemiparesis following cerebral infarction affecting left non-dominant side; I10 Essential (primary) hypertension; E11.9 Type 2 diabetes mellitus without complications; E78.5 Hyperlipidemia, unspecified; K76.0 Fatty (change of) liver, not elsewhere classified; Z79.899 Other long term (current) drug therapy; Z79.02 Long term (current) use of antithrombotics/antiplatelets; Z79.82 Long term (current) use of aspirin; Z79.84 Long term (current) use of oral hypoglycemic drugs; Y93.9 Activity, unspecified; Y92.013 Bedroom of single-family (private) house as the place of occurrence of the external cause; Y99.9 Unspecified external cause status
CPT/HCPCS: 36415; 70450; 71045; 72125; 72131; 80048; 80076; 81003; 82550; 83690; 83735; 84484; 85025; 85610; 87635; 93005; 96374; 96375; 99284; J3475

== ENCOUNTER 2022-09-05 10:30 | Outpatient (REF) | payer OTHER, SELFPAY ==
[2022-09-06 15:32] LABS: H Pylori Breath Test Negative (Negative)
== END 2022-09-05 10:31 | disposition home or self-care (01) ==
LOC: CF 10:30
PROVIDERS: PCP Internal Medicine; Visit Provider Internal Medicine Gastroenterology
DX: Z79.899 Other long term (current) drug therapy (principal)
CPT/HCPCS: 36415; 83013; 99212

== ENCOUNTER 2022-09-05 22:14 | Inpatient (IN) | payer OTHER, SELFPAY ==
--- NOTE | ~2022-09-05 | MR_ITS ---
EXAMINATION: MR BRAIN WITHOUT CONTRAST CLINICAL INFORMATION: Dysarthria, slurred speech COMPARISON: Same day CT head without contrast, MR brain without contrast 07/23/2021 TECHNIQUE: Multiplanar multisequence MR imaging of the brain was obtained without intravenous contrast. FINDINGS: Motion degraded examination There is no acute infarct on diffusion-weighted imaging. Stable chronic blood products in the liana. No extra-axial collection or mass effect/herniation. Scattered periventricular and deep white matter T2 FLAIR hyperintensities consistent with mild underlying microangiopathy. Redemonstration of chronic lacunar infarcts in the right frontal periventricular white matter, right thalamus, and liana. Several of the pontine lacunar infarcts appear progressed compared to MRI from 07/23/2021 with increased surrounding gliosis. New chronic lacunar infarcts involving the left centrum semiovale. No hydrocephalus. The ventricles are normal in morphology and size. The major flow voids at the skull base are preserved. The midline structures are normal. The cerebellar tonsils are normally positioned. The craniocervical junction is normal. Marrow signal is within normal limits. The visualized soft tissues are without significant abnormality. Mild ethmoid sinus mucosal thickening. MR/MR head/brain wo con IMPRESSION: Motion degraded examination No acute infarct or other acute intracranial abnormality. Redemonstration of multiple chronic lacunar infarcts with new infarcts in the left centrum semiovale and progression of lacunar infarcts in the liana compared to MRI from 07/23/2021.
--- NOTE | ~2022-09-05 | CT_ITS ---
EXAMINATION: CT HEAD WITHOUT CONTRAST CLINICAL INFORMATION: Slurred speech. COMPARISON: CT head 09/05/2022 and 04/30/2022. TECHNIQUE: Contiguous axial imaging was performed from the skull base to vertex without intravenous administration of contrast. This CT examination was performed using dose optimization techniques as appropriate, variously including the following: *Automated exposure control *Adjustment of mA and/or kV according to patient size (this includes techniques or standardized protocols for targeted exams where dose is matched to indication/reason for exam; i.e. extremities or head) *Use of iterative reconstruction technique DLP: 517 mGy-cm FINDINGS: There is no evidence of acute intracranial hemorrhage or edematous territorial infarction. Scattered hypoattenuation in the periventricular and deep white matter are consistent with moderate microangiopathy. Lacunar infarcts in the bilateral basal ganglia and liana are not significantly changed compared to 04/30/2022. Urias-white matter differentiation is preserved. Proportional prominence of the ventricles and sulcal spaces. No evidence for obstructive hydrocephalus. No abnormal mass effect or midline shift. No extra-axial fluid collections. No acute soft tissue or osseous abnormalities. Mild mucosal thickening of the paranasal sinuses. No air-fluid levels. Bilateral lens extraction. CT/CT head/brain wo IV con IMPRESSION: 1. No evidence of acute intracranial hemorrhage or edematous territorial infarction. 2. Multiple bilateral chronic lacunar infarcts. 3. Background of chronic microangiopathy and volume loss.
--- NOTE | ~2022-09-05 | CT_ITS ---
EXAMINATION: CT HEAD WITHOUT CONTRAST CLINICAL INFORMATION: Question of fluid COMPARISON: 04/30/2022 TECHNIQUE: Contiguous axial imaging was performed from the skull base to vertex without intravenous administration of contrast. This CT examination was performed using dose optimization techniques as appropriate, variously including the following: *Automated exposure control *Adjustment of mA and/or kV according to patient size (this includes techniques or standardized protocols for targeted exams where dose is matched to indication/reason for exam; i.e. extremities or head) *Use of iterative reconstruction technique DLP: 488 mGy-cm FINDINGS: There is no evidence of acute intracranial hemorrhage or territorial infarction. No abnormal mass-effect or midline shift is seen. Urias to white matter differentiation is well preserved. No extra-axial fluid collections are identified. The ventricles are normal in size. Redemonstrated chronic lacunar infarcts in the bilateral basal ganglia and midbrain/liana. The osseous structures and soft tissues are normal. Partially opacified posterior ethmoid air cells. The mastoid air cells are well-aerated. CT/CT head/brain wo IV con IMPRESSION: No acute intracranial pathology. Redemonstrated chronic findings as noted above.
[2022-09-05 22:16] VITALS: BP 190/95; PULSE 82; O2SAT 96
[2022-09-05 22:22] VITALS: BP 225/95; PULSE 77; RESP 16; TEMP 36.4; O2SAT 95; BMI 19.5
--- NOTE | 2022-09-05 22:25 | ECG_ITS ---
Test Reason : WEAKNESS Blood Pressure : / mmHG Vent. Rate : 076 BPM Atrial Rate : 076 BPM P-R Int : 180 ms QRS Dur : 062 ms QT Int : 426 ms P-R-T Axes : 000 -15 148 degrees QTc Int : 479 ms Normal sinus rhythm T wave abnormality, consider lateral ischemia Prolonged QT Abnormal ECG When compared with ECG of 30-APR-2022 12:30, T wave inversion less evident in Lateral leads Referred By: Generic ED Physician Electronically Signed By:SVETA FRASER MD
[2022-09-05 22:26] VITALS: BP 236/96
--- NOTE | 2022-09-05 22:30 | ED_ITS ---
HPI - Weakness General Chief complaint: Weakness Stated complaint: Weakness with [place] Time Seen by Provider: 09/05/22 22:27 Source: patient Mode of arrival: ambulatory Limitations: no limitations History of Present Illness HPI Narrative: patient with History of hypertension and diabetes was not feeling well since last night feels weak and dizzy and headache headache is mostly in the back part of the head no nausea no vomiting seen by her research quality assurance specialist blood pressure noticed to be high and blood sugar was high had sent the patient here arrival patient POC was 372 blood pressure was 225/95 patient has been feeling dizzy and off balance unable to ambulate without assist today patient taking metformin 500 mg twice daily and lisinopril 30 mg daily Related Data Home Medications Medication Instructions Recorded Confirmed albuterol sulfate 90 mcg/actuation 1 inh inhalation QID PRN Shortness 04/28/20 09/06/22 aerosol inhaler Of Breath Or Wheezing acarbose 100 mg tablet 1 tab PO BID 01/11/22 09/06/22 risperidone 0.5 mg tablet 0.5 mg PO BEDTIME 09/05/22 09/06/22 gabapentin 100 mg capsule 100 mg PO BID 09/06/22 09/06/22 gabapentin 400 mg capsule 1 cap PO BEDTIME 09/06/22 09/06/22 Previous Rx's Medication Instructions Recorded pen needle, diabetic 31 gauge x #100 ea 02/24/2109/22 (Comfort EZ Pen [place]) Transport wheelchair #1 ea 08/11/21 multivitamin 1 tab PO DAILY 90 days #90 tabs 09/13/21 Walker with seat and wheels #1 ea 09/28/21 blood sugar diagnostic (FreeStyle #100 ea 10/01/21 Lite Strips) polyethylene glycol 3350 17 gram 17 g PO BID #100 ea 10/27/21 oral powder packet (Miralax) lancets 28 gauge (FreeStyle #100 ea 12/28/21 Lancets) atorvastatin 40 mg tablet 40 mg PO DAILY #90 tabs 01/17/22 cholecalciferol (vitamin D3) 50 50 mcg PO DAILY 30 days #30 caps 03/28/22 mcg (2,000 unit) capsule psyllium husk 0.52 gram capsule 0.52 g PO BEDTIME PRN constipation 04/01/22 (Fiber (psyllium husk)) 90 days #90 caps aspirin 81 mg tablet,delayed 81 mg PO DAILY #90 tabs 10/12/22 release ursodiol 250 mg tablet 250 mg PO TID #270 tabs 04/20/22 lidocaine 5 % topical ointment 1 appl topical DAILY PRN pain #30 04/30/22 grams MOUTH GUARD #1 ea 06/08/22 lisinopril 30 mg tablet 30 mg PO DAILY 90 days #90 tabs 06/24/22 sertraline 100 mg tablet 200 mg PO DAILY 30 days #60 tabs 07/01/22 adult diapers size small petite #90 ea 08/03/22 Adult pull ups #90 ea 08/04/22 meclizine 25 mg tablet 25 mg PO BID PRN dizziness #20 tabs 08/08/22 clotrimazole 1 % topical cream 1 appl topical BID 4 weeks #45 08/17/22 grams metformin 500 mg tablet 500 mg PO BIDWMEAL 90 days #180 08/17/22 tabs miconazole nitrate 2 % topical 1 appl topical BID #85 grams 08/17/22 powder (Zeasorb AF) [id number] 140 gram-sod sulfate 9 See Rx Instructions PO .COMPLEX #3 09/05/22 gram-NaCl 5.2gram-KCl-C oral pwdr ea packs (Plenvu) Allergies Allergy/AdvReac Type Severity Reaction Status Date / Time Latex, Natural Rubber Allergy Intermediate Rash Verified 09/05/22 22:27 Sulfa (Sulfonamide AdvReac Intermediate Stomach Verified 09/05/22 22:27 Antibiotics) Upset [SULFA (SULFONAMIDE ANTIBIOTICS)] Morphine Sulfate AdvReac Intermediate Abdominal Uncoded 09/05/22 22:27 Pain Review of Systems Review of Systems: Yes all other systems are reviewed and are negative PMFSH Past Medical History Medical History BOB positive Asthma Cervical osteoarthritis CVA (cerebral vascular accident) Diabetes type 2, uncontrolled Diabetic polyneuropathy associated with type 2 diabetes mellitus Diabetic retinopathy associated with type 2 diabetes mellitus Dyslipidemia Fatty liver disease, nonalcoholic GERD (gastroesophageal reflux disease) History of CVA (cerebrovascular accident) History of sleep apnea History of umbilical hernia HTN (hypertension) Hypertension Hypoglycemia after GI (gastrointestinal) surgery Osteoarthritis of right glenohumeral joint Postural hypotension Primary biliary cholangitis Shoulder pain, right Sjogrens syndrome Subclinical hypothyroidism Surgical History History of carpal tunnel release History of esophagogastroduodenoscopy (EGD) History of laparoscopic appendectomy History of partial hysterectomy Hx of section Hx of colonoscopy Hx of dilation and curettage Hx of gastric bypass Hx of tonsillectomy Family History Family History Father [place] (myocardial infarction) Diabetes mellitus Mother Diabetes mellitus CVA (cerebral vascular accident) Maternal Grandmother Stomach cancer Sister Hemorrhagic cerebrovascular accident (CVA) Social History Social History Household Members: Spouse Housing: Apartment Are you a primary direct care specialist to a significant other at home: No Do you presently have visiting nurse or other home services: Yes Alcohol intake: never Patient Tobacco Use Status: Never used Tobacco Smoked in Last 30 Days: No e-Cigarette/Vaping Use: Never Used Second Hand Smoke Exposure: No Use of substances other than those prescribed or required for medical reasons: No Advance Directives: No Advance Directives Date on File: 07/10/99 Nutrition Risks: No Nutritional Risk Patient : No service: No Current occupational status: retired and disabled Cognitive needs: Yes (wheelchait) Hearing needs: No Vision needs: No Physical Exam Vital Signs: Vital Signs: Last Vital Signs Temp 97.7 F 09/06/22 04:23 Pulse 68 09/06/22 04:23 Resp 21 H 09/06/22 04:23 BP 157/67 H 09/06/22 04:23 Pulse Ox 97 09/06/22 04:23 O2 Del Method 09/06/22 04:23 BMI result Body Mass Index 19.5 Appearance: Alert. Oriented X3. No acute distress. Eyes: PERRLA, No Nystagmus ENT: Pharynx normal. Oral Mucosa moist Neck: Normal inspection. Neck supple. CVS: Normal heart rate and rhythm. Pulses normal. Respiratory: No respiratory distress. Equal air entry bilateral, no wheezing/rales/rhonchi Abdomen: Soft and nontender. Bowel sounds are present, no mass palpable, no CVA tenderness Skin: Skin warm and dry. Normal skin color. Normal skin turgor. Extremities: No lower extremity edema. No calf tenderness Neuro: Oriented X 3. No motor deficit. No sensory deficit, , no cerebellar signs , cranial nerves II-XII intact Medications Administered Generic Name Dose Route Start Last Admin Trade Name Robson PRN Reason Stop Dose Admin Enoxaparin Sodium 40 mg 09/06/22 03:15 09/06/22 04:22 Enoxaparin Sodium 40 Mg/0.4 Ml Syringe SUBCUT 40 mg Q24H SHARON Administration Discontinued Medications Generic Name Dose Route Start Last Admin Trade Name Robson PRN Reason Stop Dose Admin Acetaminophen 650 mg 09/05/22 23:29 09/05/22 23:39 Acetaminophen 325 Mg Tablet PO 09/05/22 23:30 650 mg ONCE ONE Administration Sodium Chloride 1,000 mls @ 999 mls/hr 09/05/22 23:44 09/06/22 02:06 Ns IV 09/06/22 00:44 Infused .Q1H1M ONE Infusion Magnesium Sulfate 2 gm in 50 mls @ 100 mls/hr 09/05/22 23:44 09/06/22 01:54 Magnesium Sulfate/H2o IV 09/06/22 00:13 Infused ONCE ONE Infusion Insulin Glargine 10 unit 09/06/22 02:37 09/06/22 03:09 Insulin Glargine,Hum.Rec.Anlog 100 Unit/Ml 10 Ml Vial SUBCUT 09/06/22 02:38 10 unit ONCE ONE Administration Insulin Human Lispro 14 unit 09/05/22 23:44 09/05/22 23:59 Insulin Lispro 100 Unit/Ml 3 Ml Vial SUBCUT 09/05/22 23:45 14 unit ONCE ONE Administration Labetalol HCl 20 mg 09/05/22 22:34 09/05/22 22:40 Labetalol Hcl 100 Mg/20 Ml Vial IVPUSH 09/05/22 22:35 20 mg ONCE ONE Administration Labetalol HCl 10 mg 09/05/22 23:44 09/05/22 23:58 Labetalol Hcl 100 Mg/20 Ml Vial IVPUSH 09/05/22 23:45 10 mg ONCE ONE Administration Medical Decision Making Medical Decision Making [facility] Narrative: Patient with accelerated hypertension with dizziness noticed to have high glucose patient not on insulin unknown cause required multiple doses of IV labetalol and insulin will admit patient for hypertensive management and hyperglycemia management patient's CT scan is negative Differential Diagnosis Differential Diagnoses: The differential diagnosis associated with the presenta tion includes SAH/cerebellar stroke/CVA/bleed/hyperglycemia Lab Data MDM Lab Attestation statement: I reviewed the patient's lab results. 09/05/22 22:59 09/05/22 22:59 Labs: Lab Results 09/05/22 09/05/22 09/05/22 Range/Units 22:25 22:59 22:59 WBC 7.0 (4.8-10.8) X10*3/uL RBC 5.50 (4.20-5.50) X10*6/uL Hgb 13.5 (12.0-16.0) g/dl Hct 43.5 (37.0-47.0) % MCV 79.1 L (80.0-98.0) fL MCH 24.5 L (27.0-33.0) pg MCHC 31.0 (31.0-35.0) g/dl RDW 19.1 H (11.0-16.0) % Plt Count 251 (160-400) X10*3/uL MPV Not Reportable Immature Gran % (Auto) 0.3 (0.0-0.4) % Neut % (Auto) 82.4 H (45-73) % Lymph % (Auto) 14.4 L (20-40) % [place] % (Auto) 2.2 (2-11) % Eos % (Auto) 0.3 (0-4) % Baso % (Auto) 0.4 (0-2) % Lymph # (Auto) 1.0 L (1.2-4.9) X10*3/uL [place] # (Auto) 0.2 (0.1-1.2) X10*3/uL Eos # (Auto) 0.0 (0.0-0.4) X10*3/uL Baso # (Auto) 0.0 (0.0-0.2) X10*3/uL Abs Immat Gran (auto) 0.02 (0.00-0.03) X10*3/uL Absolute Neuts (auto) 5.7 (2.0-8.3) x10*3/uL Absolute Nucleated RBC 0.000 (0.0-0.012) X10*3/uL Nucleated RBC % (auto) 0.0 (0.0-0.2) /100WBC Smear Tech's Comments VERIFIED PT (10.0-13.1) SEC INR (0.9-1.1) APTT (26.0-36.4) SEC Sodium 133 L (135-145) mmol/L Potassium 4.6 D (3.3-5.1) mmol/L Chloride 94 L (96-108) mmol/L Carbon Dioxide 26 (22-29) mmol/L Anion Gap 18 (12-20) BUN 11 (9-16) mg/dL Creatinine 0.77 (0.5-1.4) mg/dL Estim Creat Clear Calc 58.8 Estimated GFR > 60 POC Glucose 372 H* (60-115) mg/dL Random Glucose 419 H* (60-115) mg/dL Calcium 9.2 (8.4-10.2) mg/dL Magnesium (1.6-2.6) mg/dL Troponin I High Sens (<3.5-17.0) ng/L COVID-19 (JAMES) (Negative) COVID-19 Clin Com 09/05/22 09/05/22 09/05/22 Range/Units 22:59 22:59 22:59 WBC (4.8-10.8) X10*3/uL RBC (4.20-5.50) X10*6/uL Hgb (12.0-16.0) g/dl Hct (37.0-47.0) % MCV (80.0-98.0) fL MCH (27.0-33.0) pg MCHC (31.0-35.0) g/dl RDW (11.0-16.0) % Plt Count (160-400) X10*3/uL MPV Immature Gran % (Auto) (0.0-0.4) % Neut % (Auto) (45-73) % Lymph % (Auto) (20-40) % [place] % (Auto) (2-11) % Eos % (Auto) (0-4) % Baso % (Auto) (0-2) % Lymph # (Auto) (1.2-4.9) X10*3/uL [place] # (Auto) (0.1-1.2) X10*3/uL Eos # (Auto) (0.0-0.4) X10*3/uL Baso # (Auto) (0.0-0.2) X10*3/uL Abs Immat Gran (auto) (0.00-0.03) X10*3/uL Absolute Neuts (auto) (2.0-8.3) x10*3/uL Absolute Nucleated RBC (0.0-0.012) X10*3/uL Nucleated RBC % (auto) (0.0-0.2) /100WBC Smear Tech's Comments PT 13.6 H (10.0-13.1) SEC INR 1.2 H (0.9-1.1) APTT 33.8 (26.0-36.4) SEC Sodium (135-145) mmol/L Potassium (3.3-5.1) mmol/L Chloride (96-108) mmol/L Carbon Dioxide (22-29) mmol/L Anion Gap (12-20) BUN (9-16) mg/dL Creatinine (0.5-1.4) mg/dL Estim Creat Clear Calc Estimated GFR POC Glucose (60-115) mg/dL Random Glucose (60-115) mg/dL Calcium (8.4-10.2) mg/dL Magnesium 1.3 L* (1.6-2.6) mg/dL Troponin I High Sens 5.5 (<3.5-17.0) ng/L COVID-19 (JAMES) (Negative) COVID-19 Clin Com 09/05/22 09/06/22 09/06/22 Range/Units 22:59 00:38 02:35 WBC (4.8-10.8) X10*3/uL RBC (4.20-5.50) X10*6/uL Hgb (12.0-16.0) g/dl Hct (37.0-47.0) % MCV (80.0-98.0) fL MCH (27.0-33.0) pg MCHC (31.0-35.0) g/dl RDW (11.0-16.0) % Plt Count (160-400) X10*3/uL MPV Immature Gran % (Auto) (0.0-0.4) % Neut % (Auto) (45-73) % Lymph % (Auto) (20-40) % [place] % (Auto) (2-11) % Eos % (Auto) (0-4) % Baso % (Auto) (0-2) % Lymph # (Auto) (1.2-4.9) X10*3/uL [place] # (Auto) (0.1-1.2) X10*3/uL Eos # (Auto) (0.0-0.4) X10*3/uL Baso # (Auto) (0.0-0.2) X10*3/uL Abs Immat Gran (auto) (0.00-0.03) X10*3/uL Absolute Neuts (auto) (2.0-8.3) x10*3/uL Absolute Nucleated RBC (0.0-0.012) X10*3/uL Nucleated RBC % (auto) (0.0-0.2) /100WBC Smear Tech's Comments PT (10.0-13.1) SEC INR (0.9-1.1) APTT (26.0-36.4) SEC Sodium (135-145) mmol/L Potassium (3.3-5.1) mmol/L Chloride (96-108) mmol/L Carbon Dioxide (22-29) mmol/L Anion Gap (12-20) BUN (9-16) mg/dL Creatinine (0.5-1.4) mg/dL Estim Creat Clear Calc Estimated GFR POC Glucose 373 H* 264 H (60-115) mg/dL Random Glucose (60-115) mg/dL Calcium (8.4-10.2) mg/dL Magnesium (1.6-2.6) mg/dL Troponin I High Sens (<3.5-17.0) ng/L COVID-19 (JAMES) Negative (Negative) COVID-19 Clin Com See Note Critical Care Time Critical Care Time Critical Care Time: Yes Total Critical Care Time: 60 Attestation: The patient was critically ill with a high probability of imminent or life threatening deterioration. I spent greater than 65 minutes of discontinuous time evaluating the patient,delivering critical care at the bedside, discussing and evaluating pertinent data with consultants. Critical care time does not include time spent performing separately billable procedures or teaching. Total time spent performing critical care was 60 minutes. Discharge Plan Discharge Clinical Impression: Hyperglycemia due to diabetes mellitus, Hypertension, Hypomagnesemia, Dizziness Patient Disposition: Admitted As Inpatient
[2022-09-05] MEDS: Labetalol HCL 100 MG/20 ML VIAL 20 MG IVPUSH (22:40)
[2022-09-05 22:50] LABS: Glucose, Whole Blood 372 mg/dL (60-115)
[2022-09-05 23:01] VITALS: BP 207/93; PULSE 72; RESP 20; TEMP 36.4; O2SAT 96
[2022-09-05 23:13] LABS: Basophils Percent Auto 0.4 % (0-2); Eosinophils Percent Auto 0.3 % (0-4); Hematocrit 43.5 % (37.0-47.0); Hemoglobin 13.5 g/dl (12.0-16.0); Imm Gran Abs Auto 0.02 X10*3/uL (0.00-0.03); Imm Gran Pct Auto 0.3 % (0.0-0.4); Lymphocytes Percent Auto 14.4 % (20-40); MANUAL DIFF FLAG SCAN; Mean Corpuscular Hemoglobin 24.5 pg (27.0-33.0); Mean Corpuscular Volume 79.1 fL (80.0-98.0); Monocytes Absolute Auto 0.2 X10*3/uL (0.1-1.2); Monocytes Percent Auto 2.2 % (2-11); Neutrophils Absolute Auto 5.7 x10*3/uL (2.0-8.3); Neutrophils Percent Auto 82.4 % (45-73); PLT ABN DIST 1; Platelet Count 251 X10*3/uL (160-400); Red Cell Distribution Width 19.1 % (11.0-16.0); SCAN SMEAR FLAG 1
[2022-09-05 23:14] LABS: SLIDE REVIEW VERIFIED
[2022-09-05 23:15] LABS: INTERNATIONAL NORM RATIO 1.2 (0.9-1.1); Prothrombin Time 13.6 SEC (10.0-13.1)
[2022-09-05 23:16] VITALS: BP 215/92; PULSE 73; RESP 21; O2SAT 96
--- NOTE | 2022-09-05 23:17 | MHC.EDTECH ---
Pt placed on Prwick per RN
[2022-09-05 23:18] LABS: Partial Thromboplastin Time 33.8 SEC (26.0-36.4)
[2022-09-05 23:20] LABS: COVID-19 Test Negative (Negative); IDNOW Serial# BCCEAD1C
[2022-09-05 23:31] LABS: Troponin-I High Sensitivity 5.5 ng/L (<3.5-17.0)
[2022-09-05 23:32] LABS: Anion Gap 18 (12-20); Blood Urea Nitrogen 11 mg/dL (9-16); Calcium 9.2 mg/dL (8.4-10.2); Carbon Dioxide 26 mmol/L (22-29); Chloride 94 mmol/L (96-108); Creatinine Clr Calc Pharmacy 58.8; Estimated Glomerular Filt Rate > 60; Glucose Random 419 mg/dL (60-115); Magnesium 1.3 mg/dL (1.6-2.6); Potassium 4.6 mmol/L (3.3-5.1); Sodium 133 mmol/L (135-145)
[2022-09-05] MEDS: Acetaminophen 325 MG TABLET 650 MG PO (23:39)
[2022-09-05] MEDS: Magnesium Sulfate/H2O 2 GM/50 ML PIGGYBACK IV (23:58)
[2022-09-05] MEDS: Labetalol HCL 100 MG/20 ML VIAL 10 MG IVPUSH (23:58)
[2022-09-05] MEDS: 0.9 % Sodium Chloride 1,000 ML 999 ML IV (23:59)
[2022-09-05] MEDS: Insulin Lispro 100 UNIT/ML 3 ML VIAL 14 UNIT SUBCUT (23:59)
[2022-09-06] VITALS (11 sets, daily range): BP systolic 130–201; BP diastolic 60–84; PULSE 66–72; RESP 14–21; TEMP 36.1–37.3; O2SAT 92–97
[2022-09-06 00:42] LABS: Glucose, Whole Blood 373 mg/dL (60-115)
--- NOTE | 2022-09-06 01:55 | PC.NURSE ---
Pt aox3 resting at the bedside. Breaths are even and unlabored. O2 sat 95% RA. NSR on monitor with HR 70. Abd is soft and tender. Skin warm, dry, and pale. Pt reports generalized weakness with decreased PO intake today. Reports headache, 01/16. Pt aware of plan of care. Will continue to monitor.
[2022-09-06 02:40] LABS: Glucose, Whole Blood 264 mg/dL (60-115)
--- NOTE | 2022-09-06 02:55 | PC.NURSE ---
Med req completed.
[2022-09-06] MEDS: Insulin Glargine,Hum.rec.anlog 100 UNIT/ML 10 ML VIAL 10 UNIT SUBCUT (03:09)
--- NOTE | 2022-09-06 03:13 | P.HPHOSP_ITS ---
History of Present Illness Date of Service: 09/06/22 Chief Complaint: Dizziness This is a 61-year-old female with pertinent history of essential hypertension, vqb-[id number]-[id number] diabetes mellitus, mood disorder, mixed hyperlipidemia, primary biliary cholangitis, MEZA who presents to the emergency department for evaluation of headache and dizziness. Patient states her dizziness and headache started 1 day prior to presentation. States he is compliant with home medications. 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 She denies nausea, vomiting, abdominal pain, fever, chills, chest discomfort, palpitations, shortness of breath, changes in urinary or bowel habits. In the emergency department, patient's blood pressure was found to be elevated with systolics as high as 236 and blood sugar was noted to be 419 Review of Systems Constitutional: Constitutional: Reports no additional constitutional complaints and Reports headache(s) ENT: Reports dizziness and Reports headache(s) Cardiovascular: Cardiovascular: Reports no additional cardiovascular complaints Respiratory: Respiratory: Reports no additional respiratory complaints Gastrointestinal: Gastrointestinal: Reports no additional gastrointestinal complaints Genitourinary: Genitourinary: Reports no additional female genitourinary complaints Neurologic: Reports dizziness and Reports headache(s) [facility] Medical History BOB positive Asthma Cervical osteoarthritis CVA (cerebral vascular accident) Diabetes type 2, uncontrolled Diabetic polyneuropathy associated with type 2 diabetes mellitus Diabetic retinopathy associated with type 2 diabetes mellitus Dyslipidemia Fatty liver disease, nonalcoholic GERD (gastroesophageal reflux disease) History of CVA (cerebrovascular accident) History of sleep apnea History of umbilical hernia HTN (hypertension) Hypertension Hypoglycemia after GI (gastrointestinal) surgery Osteoarthritis of right glenohumeral joint Postural hypotension Primary biliary cholangitis Shoulder pain, right Sjogrens syndrome Subclinical hypothyroidism Family History Father [place] (myocardial infarction) Diabetes mellitus Mother Diabetes mellitus CVA (cerebral vascular accident) Maternal Grandmother Stomach cancer Sister Hemorrhagic cerebrovascular accident (CVA) Surgical History History of carpal tunnel release History of esophagogastroduodenoscopy (EGD) History of laparoscopic appendectomy History of partial hysterectomy Hx of section Hx of colonoscopy Hx of dilation and curettage Hx of gastric bypass Hx of tonsillectomy Social History Household Members: Spouse Housing: Apartment Are you a primary floor care specialist to a significant other at home: No Do you presently have visiting nurse or other home services: Yes Alcohol intake: never Patient Tobacco Use Status: Never used Tobacco Smoked in Last 30 Days: No e-Cigarette/Vaping Use: Never Used Second Hand Smoke Exposure: No Use of substances other than those prescribed or required for medical reasons: No Advance Directives: No Advance Directives Date on File: 07/10/99 Nutrition Risks: No Nutritional Risk Patient : No service: No Current occupational status: retired and disabled Cognitive needs: Yes (wheelchait) Hearing needs: No Vision needs: No Meds Allergies Allergy/AdvReac Type Severity Reaction Status Date / Time Latex, Natural Rubber Allergy Intermediate Rash Verified 09/05/22 22:27 Sulfa (Sulfonamide AdvReac Intermediate Stomach Verified 09/05/22 22:27 Antibiotics) Upset [SULFA (SULFONAMIDE ANTIBIOTICS)] Morphine Sulfate AdvReac Intermediate Abdominal Uncoded 09/05/22 22:27 Pain Active Medications: Current Medications Pharmacy Consult (Consult Rx Perform Med Rec) 1 each MISCELLANE ONCE PRN PRN Reason: Consult order Home Medications Medication Instructions Recorded Confirmed Last Taken Type albuterol sulfate 90 mcg/actuation 1 inh inhalation QID PRN Shortness 04/28/20 09/06/22 Unknown History aerosol inhaler Of Breath Or Wheezing acarbose 100 mg tablet 1 tab PO BID 01/11/22 09/06/22 Unknown History risperidone 0.5 mg tablet 0.5 mg PO BEDTIME 09/05/22 09/06/22 Unknown History gabapentin 100 mg capsule 100 mg PO BID 09/06/22 09/06/22 Unknown History gabapentin 400 mg capsule 1 cap PO BEDTIME 09/06/22 09/06/22 Unknown History Physical Exam Vital Signs and Narrative: Vital Signs: Last Vital Signs Temp 97.5 F 09/05/22 23:01 Pulse 67 09/06/22 02:39 Resp 19 09/06/22 02:39 BP 168/74 H 09/06/22 02:39 Pulse Ox 95 02/28/23 02:39 O2 Del Method 09/06/22 02:39 BMI result Body Mass Index 19.5 Elderly female lying in bed in mild distress Neck supple, no JVD Regular rate and rhythm, S1-S2 heard Regular breath sounds bilaterally, no wheezing or crackles appreciated Abdomen soft nontender, no guarding, no rigidity Patient is awake, alert and oriented to self, place, time and person ; no focal motor deficit Psych: Normal mood No pedal edema Results Labs 09/05/22 22:59 09/05/22 22:59 Labs: Laboratory Results - last 24 hr 09/05/22 09/05/22 09/05/22 22:25 22:59 22:59 MCV 79.1 L MCH 24.5 L MCHC 31.0 RDW 19.1 H Plt Count 251 MPV Not Reportable Immature Gran % (Auto) 0.3 Neut % (Auto) 82.4 H Lymph % (Auto) 14.4 L [place] % (Auto) 2.2 Eos % (Auto) 0.3 Baso % (Auto) 0.4 Lymph # (Auto) 1.0 L [place] # (Auto) 0.2 Eos # (Auto) 0.0 Baso # (Auto) 0.0 Abs Immat Gran (auto) 0.02 Absolute Neuts (auto) 5.7 Absolute Nucleated RBC 0.000 Nucleated RBC % (auto) 0.0 Smear Tech's Comments VERIFIED PT INR APTT Anion Gap 18 Estim Creat Clear Calc 58.8 Estimated GFR > 60 POC Glucose 372 H* Random Glucose 419 H* Calcium 9.2 Magnesium Troponin I High Sens COVID-19 (JAMES) COVID-19 Clin Com 09/05/22 09/05/22 09/05/22 22:59 22:59 22:59 MCV MCH MCHC RDW Plt Count MPV Immature Gran % (Auto) Neut % (Auto) Lymph % (Auto) [place] % (Auto) Eos % (Auto) Baso % (Auto) Lymph # (Auto) [place] # (Auto) Eos # (Auto) Baso # (Auto) Abs Immat Gran (auto) Absolute Neuts (auto) Absolute Nucleated RBC Nucleated RBC % (auto) Smear Tech's Comments PT 13.6 H INR 1.2 H APTT 33.8 Anion Gap Estim Creat Clear Calc Estimated GFR POC Glucose Random Glucose Calcium Magnesium 1.3 L* Troponin I High Sens 5.5 COVID-19 (JAMES) COVID-19 Clin Com 09/05/22 09/06/22 09/06/22 22:59 00:38 02:35 MCV MCH MCHC RDW Plt Count MPV Immature Gran % (Auto) Neut % (Auto) Lymph % (Auto) [place] % (Auto) Eos % (Auto) Baso % (Auto) Lymph # (Auto) [place] # (Auto) Eos # (Auto) Baso # (Auto) Abs Immat Gran (auto) Absolute Neuts (auto) Absolute Nucleated RBC Nucleated RBC % (auto) Smear Tech's Comments PT INR APTT Anion Gap Estim Creat Clear Calc Estimated GFR POC Glucose 373 H* 264 H Random Glucose Calcium Magnesium Troponin I High Sens COVID-19 (JAMES) Negative COVID-19 Clin Com See Note Imaging Radiologist's Impressions: Impressions Head CT 09/05/22 23:02 IMPRESSION: No acute intracranial pathology. Redemonstrated chronic findings as noted above. Assessment and Plan (1) Hypertensive urgency: Status: Acute Plan This is a 61-year-old female with pertinent history of essential hypertension, okz-dgduqeh-lbnobrzmn diabetes mellitus, mood disorder, mixed hyperlipidemia, primary biliary cholangitis, MEZA who presents to the emergency department for evaluation of headache and dizziness. #. Hypertensive urgency/emergency: Will admit patient with cardiac monitoring. Received IV labetalol in the ER. Normalize blood pressure slowly over 24 hours. Is on lisinopril 30 mg, monitor and optimize #. Uncontrolled non-insulin diabetes mellitus with hyperglycemia: Initiating basal plus regimen. #. Hypomagnesemia: Repleted #. Mood disorder: Continue home mood stabilizers #. Primary biliary cholangitis: On ursodiol #. Mixed hyperlipidemia: On statin Med rec pending DVT prophylaxis: Lovenox 40 mg daily Cardiac diet Full code Time Spent With Patient Time: Total time managing care of this patient today ____ minutes. Quality Stroke Does the patient have a stroke diagnosis?: No VTE Prior VTE?: No VTE Risk Level:: Medical - moderate - high VTE Device Contraindication: Treatment Not Indicated VTE Drug Contraindication: N/A - Med Ordered
[2022-09-06] MEDS: Enoxaparin Sodium 40 MG/0.4 ML SYRINGE SUBCUT (04:22)
[2022-09-06 06:56] LABS: Eosinophils Percent Auto 0.1 % (0-4); Imm Gran Abs Auto 0.03 X10*3/uL (0.00-0.03); Imm Gran Pct Auto 0.4 % (0.0-0.4)
[2022-09-06 06:58] LABS: Basophils Percent Auto 0.3 % (0-2); Hemoglobin 11.6 g/dl (12.0-16.0); Lymphocytes Absolute Auto 1.4 X10*3/uL (1.2-4.9); Lymphocytes Percent Auto 17.2 % (20-40); Mean Corpuscular HGB Conc 32.2 g/dl (31.0-35.0); Mean Corpuscular Hemoglobin 24.5 pg (27.0-33.0); Mean Corpuscular Volume 76.1 fL (80.0-98.0); Monocytes Absolute Auto 0.5 X10*3/uL (0.1-1.2); Monocytes Percent Auto 5.8 % (2-11); Neutrophils Percent Auto 76.2 % (45-73); Platelet Count 238 X10*3/uL (160-400); Red Blood Count 4.73 X10*6/uL (4.20-5.50); Red Cell Distribution Width 18.4 % (11.0-16.0); White Blood Count 7.9 X10*3/uL (4.8-10.8)
[2022-09-06 07:13] LABS: Magnesium 1.9 mg/dL (1.6-2.6)
[2022-09-06 07:19] LABS: Blood Urea Nitrogen 11 mg/dL (9-16); Calcium 8.5 mg/dL (8.4-10.2); Creatinine Clr Calc Pharmacy 68.7; Estimated Glomerular Filt Rate > 60; Glucose Random 114 mg/dL (60-115)
--- NOTE | 2022-09-06 07:23 | PC.NURSE ---
assumed care of patient, pt aox3, calm and cooperative, VSS, awaiting inpt bed
[2022-09-06 07:31] LABS: Glucose, Whole Blood 103 mg/dL (60-115)
[2022-09-06 07:37] LABS: Anion Gap 14 (12-20); Carbon Dioxide 27 mmol/L (22-29); Chloride 100 mmol/L (96-108); Potassium 3.4 mmol/L (3.3-5.1); Sodium 138 mmol/L (135-145)
--- NOTE | 2022-09-06 08:57 | PHA.MEDREC ---
Pharmacy Consult ? Medication Reconciliation Pharmacy has completed the medication reconciliation. Per daughter Maddie, patient no longer on insulin or acarbose. After surgery her sugar managed with metformin. No longer on gabapentin, and now up to 1 mg risperidone at bedtime. No longer on plavix or fludrocortisone Yao
--- NOTE | 2022-09-06 11:08 | PM.EVENT ---
Event Note Date of Service: 09/06/22 Event Note: Pt seen and examined, labs, meds reviewed and reconciled, BP is better A/P per H and p from this morning Time Spent With Patient Time: Total time managing care of this patient today ____ minutes.
[2022-09-06] MEDS: lisinopriL 10 MG TABLET 30 MG PO (11:38)
[2022-09-06] MEDS: metFORMIN HCl 500 MG TABLET PO ×2 (11:38→17:08)
[2022-09-06] MEDS: Atorvastatin Calcium 40 MG TABLET PO (11:38)
[2022-09-06] MEDS: Aspirin Enteric Coated 81 MG TABLET.DR PO (11:38)
[2022-09-06] MEDS: Sertraline HCL 100 MG TABLET 200 MG PO (11:38)
[2022-09-06 11:39] LABS: Glucose, Whole Blood 159 mg/dL (60-115)
[2022-09-06] MEDS: Multivitamin TABLET 1 TAB PO (11:39)
[2022-09-06] MEDS: Cholecalciferol (Vitamin D3) 25 MCG TABLET 50 MCG PO (11:39)
[2022-09-06] MEDS: polyethylene glycoL 3350 17 GM POWD.PACK PO ×2 (11:39→21:51)
--- NOTE | 2022-09-06 12:32 | MHC.CM.PN ---
met with pt who lives with has a steeple jack has a ride home when dcd is not vax
[2022-09-06] MEDS: Meclizine HCl 25 MG TABLET PO ×2 (13:19→21:51)
[2022-09-06] MEDS: ondansetron HCL 4 MG/2 ML VIAL IVPUSH ×2 (13:20→21:51)
[2022-09-06 16:30] LABS: Glucose, Whole Blood 160 mg/dL (60-115)
[2022-09-06] MEDS: 0.9 % Sodium Chloride Flush 3 ML SYRINGE IVFLUSH ×2 (17:09→21:54)
[2022-09-06 21:30] LABS: Glucose, Whole Blood 173 mg/dL (60-115)
[2022-09-06] MEDS: Acetaminophen 325 MG TABLET 650 MG PO (21:51)
[2022-09-06] MEDS: risperiDONE 1 MG TABLET PO (21:51)
[2022-09-07] VITALS: BP 124/60; PULSE 65; RESP 20; TEMP 36.1; O2SAT 95
[2022-09-07 04:00] VITALS: BP 158/69; PULSE 64; RESP 18; TEMP 36.2; O2SAT 95
[2022-09-07] MEDS: Acetaminophen 325 MG TABLET 650 MG PO (05:10)
[2022-09-07] MEDS: Enoxaparin Sodium 40 MG/0.4 ML SYRINGE SUBCUT (05:10)
[2022-09-07 07:23] LABS: Glucose, Whole Blood 114 mg/dL (60-115)
[2022-09-07 07:34] VITALS: BP 129/61; PULSE 60; RESP 18; TEMP 36; O2SAT 94
[2022-09-07] MEDS: Cholecalciferol (Vitamin D3) 25 MCG TABLET 50 MCG PO (09:08)
[2022-09-07] MEDS: Sertraline HCL 100 MG TABLET 200 MG PO (09:08)
[2022-09-07] MEDS: 0.9 % Sodium Chloride Flush 3 ML SYRINGE IVFLUSH ×3 (09:09→20:40)
[2022-09-07] MEDS: Atorvastatin Calcium 40 MG TABLET PO (09:09)
[2022-09-07] MEDS: Multivitamin TABLET 1 TAB PO (09:09)
[2022-09-07] MEDS: metFORMIN HCl 500 MG TABLET PO ×2 (09:09→17:12)
[2022-09-07] MEDS: lisinopriL 10 MG TABLET 30 MG PO (09:09)
[2022-09-07] MEDS: Aspirin Enteric Coated 81 MG TABLET.DR PO (09:09)
[2022-09-07] MEDS: polyethylene glycoL 3350 17 GM POWD.PACK PO ×2 (09:09→20:39)
--- NOTE | 2022-09-07 10:34 | PM.NEUROCN ---
History of Present Illness Data of Consult Service Date: 09/07/22 Primary Care Provider: Ludy Alonso MD HPI Reason for consult: Abnormal brain MRI 61-year-old female with pertinent history of essential hypertension, [id number] diabetes mellitus, mood disorder, mixed hyperlipidemia, primary biliary cholangitis, MEZA who presents to the emergency department for evaluation of headache and dizziness. She denied any previous history of alcohol abuse. Review of Systems Review of Systems: No recent trauma cold or flu-like illness PMFSH Past Medical History Medical History BOB positive Asthma Cervical osteoarthritis CVA (cerebral vascular accident) Diabetes type 2, uncontrolled Diabetic polyneuropathy associated with type 2 diabetes mellitus Diabetic retinopathy associated with type 2 diabetes mellitus Dyslipidemia Fatty liver disease, nonalcoholic GERD (gastroesophageal reflux disease) History of CVA (cerebrovascular accident) History of sleep apnea History of umbilical hernia HTN (hypertension) Hypertension Hypoglycemia after GI (gastrointestinal) surgery Osteoarthritis of right glenohumeral joint Postural hypotension Primary biliary cholangitis Shoulder pain, right Sjogrens syndrome Subclinical hypothyroidism Family History Family History Father [place] (myocardial infarction) Diabetes mellitus Mother Diabetes mellitus CVA (cerebral vascular accident) Maternal Grandmother Stomach cancer Sister Hemorrhagic cerebrovascular accident (CVA) Surgical History Surgical History History of carpal tunnel release History of esophagogastroduodenoscopy (EGD) History of laparoscopic appendectomy History of partial hysterectomy Hx of section Hx of colonoscopy Hx of dilation and curettage Hx of gastric bypass Hx of tonsillectomy Social History Social History Household Members: Spouse Housing: Apartment Are you a primary child care counselor to a significant other at home: No Do you presently have visiting nurse or other home services: Yes Alcohol intake: never Patient Tobacco Use Status: Never used Tobacco e-Cigarette/Vaping Use: Never Used Second Hand Smoke Exposure: No Advance Directives Date on File: 07/10/99 service: No Current occupational status: retired and disabled Cognitive needs: Yes (wheelchait) Hearing needs: No Vision needs: No Meds Allergies Allergy/AdvReac Type Severity Reaction Status Date / Time Latex, Natural Rubber Allergy Intermediate Rash Verified 09/05/22 22:27 Sulfa (Sulfonamide AdvReac Intermediate Stomach Verified 09/05/22 22:27 Antibiotics) Upset [SULFA (SULFONAMIDE ANTIBIOTICS)] Morphine Sulfate AdvReac Intermediate Abdominal Uncoded 09/05/22 22:27 Pain Active Medications: Current Medications Acetaminophen (Acetaminophen 325 Mg Tablet) 650 mg PO Q6H PRN PRN Reason: Pain, Mild (Pain Scale 1-3) Last Admin: 09/07/22 05:10 Dose: 650 mg Albuterol Sulfate (Albuterol Sulfate 90 Mcg 8 Gm Inhaler) 1 puff INHALE QID PRN PRN Reason: Shortness Of Breath Or Wheezing Aspirin (Aspirin Enteric Coated 81 Mg Tablet.Dr) 81 mg PO DAILY [facility] Last Admin: 09/07/22 09:09 Dose: 81 mg Atorvastatin Calcium (Atorvastatin Calcium 40 Mg Tablet) 40 mg PO DAILY [facility] Last Admin: 09/07/22 09:09 Dose: 40 mg Dextrose (Dextrose 50 % 25 Gm/50 Ml Vial) 25 gm IVPUSH Q15M PRN; Protocol PRN Reason: per Hypoglycemia Standing Ord. Enoxaparin Sodium (Enoxaparin Sodium 40 Mg/0.4 Ml Syringe) 40 mg SUBCUT Q24H [facility] Last Admin: 09/07/22 05:10 Dose: 40 mg Glucose (Glucose Gel 15 Gm Gel..Gram.) 15 gm PO Q15M PRN; Protocol PRN Reason: per Hypoglycemia Standing Ord. Insulin Glargine (Insulin Glargine,Hum.Rec.Anlog 100 Unit/Ml 10 Ml Vial) 10 unit SUBCUT BEDTIME [facility] Last Admin: 09/06/22 21:37 Dose: Not Given Insulin Human Lispro (Insulin Lispro 100 Unit/Ml 3 Ml Vial) 0 unit SUBCUT QIDACHS [facility]; Protocol Last Admin: 09/07/22 09:00 Dose: Not Given Lisinopril (Lisinopril 10 Mg Tablet) 30 mg PO DAILY [facility]; Protocol Last Admin: 09/07/22 09:09 Dose: 30 mg Meclizine HCl (Meclizine Hcl 25 Mg Tablet) 25 mg PO BID PRN PRN Reason: dizziness Last Admin: 09/06/22 21:51 Dose: 25 mg Melatonin (Melatonin 3 Mg Tablet) 6 mg PO BEDTIME PRN PRN Reason: Insomnia Metformin HCl (Metformin Hcl 500 Mg Tablet) 500 mg PO BIDWM [facility] Last Admin: 09/07/22 09:09 Dose: 500 mg Multivitamins/Vitamin C (Multivitamin Tablet) 1 tab PO DAILY [facility] Last Admin: 09/07/22 09:09 Dose: 1 tab Pt Own (Ursodiol 250 (Mg Tablet)) 250 mg PO TID [facility] Last Admin: 09/07/22 09:09 Dose: 250 mg Ondansetron HCl (Ondansetron Hcl 4 Mg/2 Ml Vial) 4 mg IVPUSH Q8H PRN PRN Reason: Nausea and Vomiting Last Admin: 09/06/22 21:51 Dose: 4 mg Pharmacy Consult (Consult Rx Perform Med Rec) 1 each MISCELLANE ONCE PRN PRN Reason: Consult order Polyethylene Glycol (Polyethylene Glycol 3350 17 Gm Powd.Pack) 17 gm PO BID [facility] Last Admin: 09/07/22 09:09 Dose: 17 gm Risperidone (Risperidone 1 Mg Tablet) 1 mg PO BEDTIME [facility] Last Admin: 09/06/22 21:51 Dose: 1 mg Sertraline HCl (Sertraline Hcl 100 Mg Tablet) 200 mg PO DAILY [facility] Last Admin: 09/07/22 09:08 Dose: 200 mg Sodium Chloride (0.9 % Sodium Chloride Flush 3 Ml Syringe) 3 ml IVFLUSH QSHIFT [facility] Last Admin: 09/07/22 09:09 Dose: 3 ml Vitamin D (Cholecalciferol (Vitamin D3) 25 Mcg Tablet) 50 mcg PO DAILY [facility] Last Admin: 09/07/22 09:08 Dose: 50 mcg Home Medications Medication Instructions Recorded Confirmed Last Taken Type albuterol sulfate 90 mcg/actuation 1 inh inhalation QID PRN Shortness 04/28/20 09/06/22 Unknown History aerosol inhaler Of Breath Or Wheezing risperidone 0.5 mg tablet 1 mg PO BEDTIME 09/05/22 09/06/22 Unknown History Physical Exam Vital Signs: Vital Signs: Last Vital Signs Temp 96.8 F 09/07/22 07:34 Pulse 60 09/07/22 07:34 Resp 18 09/07/22 07:34 BP 129/61 09/07/22 07:34 Pulse Ox 94 09/07/22 07:34 O2 Del Method 09/07/22 07:34 BMI result Body Mass Index 19.5 Neuro: Other: She is drowsy but I was able to wake her up and she answered simple questions. There was moderate right-sided facial weakness. Speech was slightly slurred. She was able to move all 4 extremities with trace plantars. Extraocular muscles were intact. Visual carr[place] seem to be normal. Results Labs 09/06/22 06:45 09/06/22 06:45 Labs: Her MRI of brain revealed chronic right pontine ischemic infarction but also suggestion of bilateral pontine lesions 1 could see with pontine myelinolysis. Microvascular ischemic changes are also noted. Previously her CTA has revealed vertebral origin right-sided stenosis but no problem with basilar artery. Assessment and Plan (1) Cerebral infarction: Status: Acute 61 years old woman with uncontrolled hypertension. She has pontine lesions that are suggestive of atherothrombotic hypertension related strokes. This could result in dysarthria, facial weakness, and arm or leg weakness and unsteadiness. There is no particular solution except that patient partially recover from this problem. Mainstay of management is blood pressure control and avoidance of strokes. Anti-platelet agent such as baby aspirin daily and statin are also recommended. Patient should be. Advised to not drink alcohol as binge alcohol drinking can also either cause this problem or make it worse. Time Spent With Patient Time: Total time managing care of this patient today ____ minutes. Procedures Date of Service Date of Service: 09/07/22
--- NOTE | 2022-09-07 11:05 | P.PNIM_ITS ---
Subjective Subjective Date of Service: 09/07/22 Interval History: f/u on elevated BP has left facial weakness, slur speech and dysphagia, no weakness in arms or legs Physical Exam Vital Signs: Vital Signs: Last Vital Signs Temp 96.8 F 09/07/22 07:34 Pulse 60 09/07/22 07:34 Resp 18 09/07/22 07:34 BP 129/61 09/07/22 07:34 Pulse Ox 94 09/07/22 07:34 O2 Del Method 09/07/22 07:34 BMI result Body Mass Index 19.5 Const: Other: General: AO X 3, no acute distress Resp: CTA bilateral CVS: S1,S2,RRR GI: +BS, NT, no distention Skin: No rash Neuro: motor grossly intact, left facial assymetry, normal strenght in arms and legs Psych: appropriate affect Objective Data Active Medications Acetaminophen (Acetaminophen 325 Mg Tablet) 650 mg PO Q6H PRN PRN Reason: Pain, Mild (Pain Scale 1-3) Last Admin: 09/07/22 05:10 Dose: 650 mg Documented By: NOE Albuterol Sulfate (Albuterol Sulfate 90 Mcg 8 Gm Inhaler) 1 puff INHALE QID PRN PRN Reason: Shortness Of Breath Or Wheezing Aspirin (Aspirin Enteric Coated 81 Mg Tablet.) 81 mg PO DAILY [facility] Last Admin: 09/07/22 09:09 Dose: 81 mg Documented By: LAURA Atorvastatin Calcium (Atorvastatin Calcium 40 Mg Tablet) 40 mg PO DAILY [facility] Last Admin: 09/07/22 09:09 Dose: 40 mg Documented By: LAURA Dextrose (Dextrose 50 % 25 Gm/50 Ml Vial) 25 gm IVPUSH Q15M PRN; Protocol PRN Reason: per Hypoglycemia Standing Ord. Enoxaparin Sodium (Enoxaparin Sodium 40 Mg/0.4 Ml Syringe) 40 mg SUBCUT Q24H [facility] Last Admin: 09/07/22 05:10 Dose: 40 mg Documented By: NOE Glucose (Glucose Gel 15 Gm Gel..Gram.) 15 gm PO Q15M PRN; Protocol PRN Reason: per Hypoglycemia Standing Ord. Insulin Glargine (Insulin Glargine,Hum.Rec.Anlog 100 Unit/Ml 10 Ml Vial) 10 unit SUBCUT BEDTIME [facility] Last Admin: 09/06/22 21:37 Dose: Not Given Documented By: NOE Non-Admin Reason: pt refusing food Insulin Human Lispro (Insulin Lispro 100 Unit/Ml 3 Ml Vial) 0 unit SUBCUT QIDACHS [facility]; Protocol Last Admin: 09/07/22 09:00 Dose: Not Given Documented By: LAURA Non-Admin Reason: No Insulin Coverage Lisinopril (Lisinopril 10 Mg Tablet) 30 mg PO DAILY [facility]; Protocol Last Admin: 09/07/22 09:09 Dose: 30 mg Documented By: LAURA Meclizine HCl (Meclizine Hcl 25 Mg Tablet) 25 mg PO BID PRN PRN Reason: dizziness Last Admin: 09/06/22 21:51 Dose: 25 mg Documented By: NOE Melatonin (Melatonin 3 Mg Tablet) 6 mg PO BEDTIME PRN PRN Reason: Insomnia Metformin HCl (Metformin Hcl 500 Mg Tablet) 500 mg PO BIDWM [facility] Last Admin: 09/07/22 09:09 Dose: 500 mg Documented By: LAURA Multivitamins/Vitamin C (Multivitamin Tablet) 1 tab PO DAILY [facility] Last Admin: 09/07/22 09:09 Dose: 1 tab Documented By: LAURA Pt Own (Ursodiol 250 (Mg Tablet)) 250 mg PO TID [facility] Last Admin: 09/07/22 09:09 Dose: 250 mg Documented By: LAURA Ondansetron HCl (Ondansetron Hcl 4 Mg/2 Ml Vial) 4 mg IVPUSH Q8H PRN PRN Reason: Nausea and Vomiting Last Admin: 09/06/22 21:51 Dose: 4 mg Documented By: NOE Pharmacy Consult (Consult Rx Perform Med Rec) 1 each MISCELLANE ONCE PRN PRN Reason: Consult order Polyethylene Glycol (Polyethylene Glycol 3350 17 Gm Powd.Pack) 17 gm PO BID [facility] Last Admin: 09/07/22 09:09 Dose: 17 gm Documented By: LAURA Risperidone (Risperidone 1 Mg Tablet) 1 mg PO BEDTIME [facility] Last Admin: 09/06/22 21:51 Dose: 1 mg Documented By: NOE Sertraline HCl (Sertraline Hcl 100 Mg Tablet) 200 mg PO DAILY [facility] Last Admin: 09/07/22 09:08 Dose: 200 mg Documented By: LAURA Sodium Chloride (0.9 % Sodium Chloride Flush 3 Ml Syringe) 3 ml IVFLUSH QSHIFT [facility] Last Admin: 09/07/22 09:09 Dose: 3 ml Documented By: LAURA Vitamin D (Cholecalciferol (Vitamin D3) 25 Mcg Tablet) 50 mcg PO DAILY [facility] Last Admin: 09/07/22 09:08 Dose: 50 mcg Documented By: LAURA Labs 09/06/22 06:45 09/06/22 06:45 Labs: Laboratory Results - last 24 hr 09/06/22 09/06/22 09/06/22 11:14 16:23 21:27 POC Glucose 159 H 160 H 173 H 09/07/22 07:18 POC Glucose 114 Assessment and Plan (1) Cerebral infarction: Status: Acute (2) Hypertension: Status: Acute (3) Hyperglycemia due to diabetes mellitus: Status: Acute Plan 61-year-old female with pertinent history of essential hypertension, aad-btbkaan-pzybzgeps diabetes mellitus, mood disorder, mixed hyperlipidemia, primary biliary cholangitis, MEZA who presents to the emergency department for evaluation of headache and dizziness. #.? Hypertensive urgency/emergency:?with now associated facial weakness, slur speech and dysphagia. See by Dr. Delgado with the following recommendation She has pontine lesions that are suggestive of atherothrombotic hypertension related strokes.? This could result in dysarthria, facial weakness, and arm or leg weakness and unsteadiness.? There is no particular solution except that patient partially recover from this problem.? Mainstay of management is blood pressure control and avoidance of strokes.? Anti-platelet agent such as baby aspirin daily and statin are also recommended.? Patient should be.? Advised to not drink alcohol as binge alcohol drinking can also either cause this problem or make it worse. -PT -Speech eval -BP control, ASA #.? Uncontrolled non-insulin diabetes mellitus with hyperglycemia:? continue i nsulin #.? Hypomagnesemia:? Repleted #.? Mood disorder: Continue home mood stabilizers #.? Primary biliary cholangitis:? On ursodiol #.? Mixed hyperlipidemia: On statin Need for inpatient: management of acute stroke Time Spent With Patient Time: Total time managing care of this patient today ____ minutes. Quality Stroke Does the patient have a stroke diagnosis?: No VTE Prior VTE?: No VTE Risk Level:: Medical - moderate - high VTE Device Contraindication: Treatment Not Indicated VTE Drug Contraindication: N/A - Med Ordered
[2022-09-07 11:19] LABS: Glucose, Whole Blood 94 mg/dL (60-115)
[2022-09-07 11:23] VITALS: BP 163/70; PULSE 67; RESP 20; TEMP 36.4; O2SAT 94
[2022-09-07 12:00] LABS: Cholesterol 129 mg/dL; HDL Cholesterol 47 mg/dL; LDL Cholesterol Calculated 65 mg/dl; Triglycerides 87 mg/dL
[2022-09-07 15:30] VITALS: BP 148/71; PULSE 69; RESP 18; TEMP 36.3; O2SAT 94
--- NOTE | 2022-09-07 15:34 | MHC.SL.SWA ---
Addendum entered and electronically signed by Norma Velazquez MA, CCC-HOME HEALTH SPECIALIST 09/07/22 17:36: D.S. Original Note: Speech Pathologist Impression:Dysphagia Risk of Aspiration Due to: Lethargy Neurological Condition Poor PO Intake Weak Cough Weak Voice Dysphasia Diet Status: Recommend intermittent supervision and strict aspiration precautions. Liquid Consistency and Strategies for Safe Swallow: Liquid Intake Recommendation: Thin Liquid Intake Strategies: No Straws Liquids by Teaspoon Only Solid Food Consistency: Dietary Recommendations: Grnd/Mech Altered (NDD2) Oral Medication Intake: Whole/crushed with Puree Please contact the pharmacy regarding appropriate crushable or liquid drug formulations that are available whenever modified delivery is recommended. Compensatory Strategies and Precautions to be Taken for Safe Swallow: Sitting Upright (90 deg) No Straw Liquids from Spoon Small Bites and Sips Alternate Liquids/Solids Oral Check Avoid Specific Foods Supervision While Eating and Drinking for Safe Swallow: Total Assistance (1:1) Foods to Avoid: Avoid hard, sticky, tough to chew solids Swallowing Recommended Treatments: Compens. Strategy Educat. Recommendation for Speech: Outpatient Speech Therapy Inpatient Speech Therapy Modified Barium Swallow Study - Inpatient Modified Barium Swallow Study - Outpatient Comment: Recommend DOWNGRADE to GROUND/MECH ALTERED (NDD2), continue with THIN liquids, pills CRUSHED in puree when possible. Pt requires full assist. Pt may benefit from MBSS d/t worsening dysphagia symptoms and reports of globus sensation. [facility]/Clinical Fellow: Yes: Falguni Ly M.A., CF-HOME HEALTH SPECIALIST Supervisory Statement: I have reviewed and agree with the student/clinical fellow's documentation: Speech Language Pathologist:
--- NOTE | 2022-09-07 15:35 | MHC.CM.PN ---
per rounds pt expected to dc plan remans home
[2022-09-07 15:49] LABS: Glucose, Whole Blood 115 mg/dL (60-115)
[2022-09-07] MEDS: Meclizine HCl 25 MG TABLET PO (17:12)
[2022-09-07 18:51] VITALS: BP 143/77; PULSE 74; RESP 17; TEMP 36.2; O2SAT 93
[2022-09-07 19:42] LABS: Glucose, Whole Blood 131 mg/dL (60-115)
[2022-09-07] MEDS: risperiDONE 1 MG TABLET PO (20:39)
[2022-09-07] MEDS: Insulin Glargine,Hum.rec.anlog 100 UNIT/ML 10 ML VIAL 10 UNIT SUBCUT (20:39)
[2022-09-07] MEDS: traMADoL HCL 50 MG TABLET PO (20:39)
[2022-09-08] VITALS: BP 143/67; PULSE 63; RESP 18; TEMP 36.6; O2SAT 94
[2022-09-08 04:00] VITALS: BP 158/70; PULSE 63; RESP 18; TEMP 36.3; O2SAT 95
[2022-09-08] MEDS: Enoxaparin Sodium 40 MG/0.4 ML SYRINGE SUBCUT (04:48)
[2022-09-08 07:46] VITALS: BP 151/67; PULSE 66; RESP 20; TEMP 36.4; O2SAT 95
[2022-09-08] MEDS: polyethylene glycoL 3350 17 GM POWD.PACK PO ×2 (08:04→22:20)
[2022-09-08] MEDS: Multivitamin TABLET 1 TAB PO (08:05)
[2022-09-08] MEDS: Atorvastatin Calcium 40 MG TABLET PO (08:05)
[2022-09-08] MEDS: Cholecalciferol (Vitamin D3) 25 MCG TABLET 50 MCG PO (08:05)
[2022-09-08] MEDS: Sertraline HCL 100 MG TABLET 200 MG PO (08:05)
[2022-09-08] MEDS: lisinopriL 10 MG TABLET 30 MG PO (08:05)
[2022-09-08] MEDS: Aspirin Enteric Coated 81 MG TABLET.DR PO (08:05)
[2022-09-08] MEDS: 0.9 % Sodium Chloride Flush 3 ML SYRINGE IVFLUSH ×3 (08:06→22:20)
[2022-09-08 08:11] LABS: Glucose, Whole Blood 56 mg/dL (60-115)
[2022-09-08 08:24] LABS: Creatinine Clr Calc Pharmacy 75.8; Estimated Glomerular Filt Rate > 60
[2022-09-08 08:47] LABS: Glucose, Whole Blood 177 mg/dL (60-115)
[2022-09-08 11:19] LABS: Glucose, Whole Blood 88 mg/dL (60-115)
[2022-09-08 11:25] VITALS: BP 120/76; PULSE 64; RESP 20; TEMP 36.6; O2SAT 96
--- NOTE | 2022-09-08 11:53 | P.PNIM_ITS ---
Subjective Subjective Date of Service: 09/08/22 Interval History: f/u on elevated BP , acute stroke Seen with physical therapy. Pt is considerably very weak, has difficulty sitting up on her own, not able to stand weakness more prominent on left side and has prominent left mouth droop, and seeing double and has evidence of dysphagia... Presentation is compatible with stroke. Blood pressure is normal at this time. Review of Systems weakness as above Physical Exam Vital Signs: Vital Signs: Last Vital Signs Temp 97.8 F 09/08/22 11:25 Pulse 64 09/08/22 11:25 Resp 20 09/08/22 11:25 BP 120/76 09/08/22 11:25 Pulse Ox 96 09/08/22 11:25 O2 Del Method 09/08/22 11:25 BMI result Body Mass Index 19.5 Const: Other: General: AO X 3, no acute distress Resp: CTA bilateral CVS: S1,S2,RRR GI: +BS, NT, no distention Skin: No rash Neuro: considerable weaknessin on the left side, not able stand, left mouth droop left eye partially closed and sees double Psych: appropriate affect Neuro: Other: She is drowsy but I was able to wake her up and she answered simple questions. There was moderate right-sided facial weakness. Speech was slightly slurred. She was able to move all 4 extremities with trace plantars. Extraocular muscles were intact. Visual carrillo seem to be normal. Objective Data Active Medications Acetaminophen (Acetaminophen 325 Mg Tablet) 650 mg PO Q6H PRN PRN Reason: Pain, Mild (Pain Scale 1-3) Last Admin: 09/07/22 05:10 Dose: 650 mg Documented By: NOE Albuterol Sulfate (Albuterol Sulfate 90 Mcg 8 Gm Inhaler) 1 puff INHALE QID PRN PRN Reason: Shortness Of Breath Or Wheezing Aspirin (Aspirin Enteric Coated 81 Mg Tablet.) 81 mg PO DAILY [facility] Last Admin: 09/08/22 08:05 Dose: 81 mg Documented By: ARIANA Atorvastatin Calcium (Atorvastatin Calcium 40 Mg Tablet) 40 mg PO DAILY [facility] Last Admin: 09/08/22 08:05 Dose: 40 mg Documented By: ARIANA Dextrose (Dextrose 50 % 25 Gm/50 Ml Vial) 25 gm IVPUSH Q15M PRN; Protocol PRN Reason: per Hypoglycemia Standing Ord. Enoxaparin Sodium (Enoxaparin Sodium 40 Mg/0.4 Ml Syringe) 40 mg SUBCUT Q24H [facility] Last Admin: 09/08/22 04:48 Dose: 40 mg Documented By: NOE Glucose (Glucose Gel 15 Gm Gel..Gram.) 15 gm PO Q15M PRN; Protocol PRN Reason: per Hypoglycemia Standing Ord. Insulin Glargine (Insulin Glargine,Hum.Rec.Anlog 100 Unit/Ml 10 Ml Vial) 10 unit SUBCUT BEDTIME [facility] Last Admin: 09/07/22 20:39 Dose: 10 unit Documented By: NOE Insulin Human Lispro (Insulin Lispro 100 Unit/Ml 3 Ml Vial) 0 unit SUBCUT QIDACHS [facility]; Protocol Last Admin: 09/08/22 11:43 Dose: Not Given Documented By: ARIANA Non-Admin Reason: No Insulin Coverage Lisinopril (Lisinopril 10 Mg Tablet) 30 mg PO DAILY [facility]; Protocol Last Admin: 09/08/22 08:05 Dose: 30 mg Documented By: ARIANA Meclizine HCl (Meclizine Hcl 25 Mg Tablet) 25 mg PO BID PRN PRN Reason: dizziness Last Admin: 09/07/22 17:12 Dose: 25 mg Documented By: LAURA Melatonin (Melatonin 3 Mg Tablet) 6 mg PO BEDTIME PRN PRN Reason: Insomnia Metformin HCl (Metformin Hcl 500 Mg Tablet) 500 mg PO BIDWM [facility] Last Admin: 09/08/22 08:04 Dose: Not Given Documented By: ARIANA Non-Admin Reason: BG 56 Multivitamins/Vitamin C (Multivitamin Tablet) 1 tab PO DAILY [facility] Last Admin: 09/08/22 08:05 Dose: 1 tab Documented By: ARIANA Pt Own (Ursodiol 250 (Mg Tablet)) 250 mg PO TID [facility] Last Admin: 09/08/22 08:05 Dose: 250 mg Documented By: ARIANA Ondansetron HCl (Ondansetron Hcl 4 Mg/2 Ml Vial) 4 mg IVPUSH Q8H PRN PRN Reason: Nausea and Vomiting Last Admin: 09/06/22 21:51 Dose: 4 mg Documented By: NOE Pharmacy Consult (Consult Rx Perform Med Rec) 1 each MISCELLANE ONCE PRN PRN Reason: Consult order Polyethylene Glycol (Polyethylene Glycol 3350 17 Gm Powd.Pack) 17 gm PO BID [facility] Last Admin: 09/08/22 08:04 Dose: 17 gm Documented By: ARIANA Risperidone (Risperidone 1 Mg Tablet) 1 mg PO BEDTIME [facility] Last Admin: 09/07/22 20:39 Dose: 1 mg Documented By: NOE Sertraline HCl (Sertraline Hcl 100 Mg Tablet) 200 mg PO DAILY [facility] Last Admin: 09/08/22 08:05 Dose: 200 mg Documented By: ARIANA Sodium Chloride (0.9 % Sodium Chloride Flush 3 Ml Syringe) 3 ml IVFLUSH QSHIFT [facility] Last Admin: 09/08/22 08:06 Dose: 3 ml Documented By: ARIANA Vitamin D (Cholecalciferol (Vitamin D3) 25 Mcg Tablet) 50 mcg PO DAILY [facility] Last Admin: 09/08/22 08:05 Dose: 50 mcg Documented By: ARIANA Labs 09/06/22 06:45 09/08/22 07:10 Labs: Laboratory Results - last 24 hr 09/07/22 09/07/22 09/07/22 11:30 15:32 18:53 Estim Creat Clear Calc Estimated GFR POC Glucose 115 131 H Triglycerides 87 Cholesterol 129 LDL Cholesterol, Calc 65 HDL Cholesterol 47 09/08/22 09/08/22 09/08/22 07:10 07:48 08:44 Estim Creat Clear Calc 75.8 Estimated GFR > 60 POC Glucose 56 L* 177 H Triglycerides Cholesterol LDL Cholesterol, Calc HDL Cholesterol 09/08/22 11:09 Estim Creat Clear Calc Estimated GFR POC Glucose 88 Triglycerides Cholesterol LDL Cholesterol, Calc HDL Cholesterol Assessment and Plan (1) Cerebral infarction: Status: Acute Plan 61-year-old female with pertinent history of essential hypertension, rte-tjlioak-dhviwcvli diabetes mellitus, mood disorder, mixed hyperlipidemia, primary biliary cholangitis, MEZA who presents to the emergency department for evaluation of headache and dizziness. #.? Hypertensive urgency/emergency:?with now associated facial weakness, slur speech and dysphagia. See by Dr. Delgado with the following recommendation She has pontine lesions that are suggestive of atherothrombotic hypertension related strokes.? This could result in dysarthria, facial weakness, and arm or leg weakness and unsteadiness.? There is no particular solution except that patient partially recover from this problem.? Mainstay of management is blood pressure control and avoidance of strokes.? Anti-platelet agent such as baby aspirin daily and statin are also recommended.? Patient should be.? Advised to not drink alcohol as binge alcohol drinking can also either cause this problem or make it worse. MRI findings: Motion degraded examination ? #No acute infarct or other acute intracranial abnormality. Redemonstration of multiple chronic lacunar infarcts with new infarcts in the left centrum semiovale and progression of lacunar infarcts in the liana compared to MRI from 07/23/2021. #Patient clearly has acute stroke with clinical finding as above and some acute finding on MRI as well. Will continue optimization of BP meds, Statin, ASA, echo with buble. She will need extensive PT, OT Speech therapy and likely acute rehab. #.? Diabetes, hypoglycemia this morning #.? Hypomagnesemia:? Repleted #.? Mood disorder: Continue home mood stabilizers #.? Primary biliary cholangitis:? On ursodiol #.? Mixed hyperlipidemia: On statin Need for inpatient: management of acute stroke Above discussed with daughter and she wanted patient transfered to [facility], there is no clinical necessity for transfer yet, I reached tout to [facility] and they declined Time Spent With Patient Time: Total time managing care of this patient today ____ minutes. Quality Stroke Does the patient have a stroke diagnosis?: No VTE Prior VTE?: No VTE Risk Level:: Medical - moderate - high VTE Device Contraindication: Treatment Not Indicated VTE Drug Contraindication: N/A - Med Ordered
--- NOTE | 2022-09-08 14:46 | MHC.STROKE ---
09/08/221399 I MET WITH THE PATIENT, HER DAUGHTERS AND THE ENTIRE FAMILY THAT WERE IN THE ROOM, TODAY IS THE PATIENT'S BIRTHDAY. THEY HAD SEVERAL QUESTIONS REGARDING HER BRAIN SCANS AND HER PROGNOSIS. I REVIEWED HER PAST MEDICAL HISTORY WITH THEM INCLUDING PRIOR STROKES, HTN, DM, HLD, + FAMILY HISTORY OF STROKE, SJOGRENS SYNDROME, PAST GASTRIC BYPASS, SLEEP APNEA, AND RECENT INCREASED STRESSED DUE TO HER BROTHER BEING DIAGNOSE WITH A SERIOUS CANCER. I EXPLAINED HER MRI RESULTS AND THERE WERE NOT ANY NEW STROKES ALTHOUGH THERE WERE CHANGES IN HER SCAN AND SHE COULD HAVE HAD STROKES THAT THEY WERE NOT AWARE OF . I EXPLAINED THAT THE JAYCEE IS AN AREA THAT CAN CAUSE DIFFICULTY SWALLOWING AND THAT SPEECH THERAPY WAS FOLLOWING HER AND MAKING RECOMMENDATIONS. WE DISCUSSED THE + FAMILY HISTORY OF STROKE. WE REVIEWED THE STROKE BOOKLET AND SIGNS AND SYMPTOMS OF STROKE. I DID EXPLAIN THAT SHE HAD SEVERAL COMORBIDITIES AND WE WERE TAKING ALL OF THAT INTO ACCOUNT. THEY WANTED TO BE SURE WE UNDERSTOOD THAT SHE DOES SEEM WEAKER. I DID EXPLAIN THAT THE ENTIRE TEAM HAS BEEN INVOLVED AND WE DEFINITELY WERE AWARE. I PROVIDED SUPPORT AND ENCOURAGEMENT. THEY DID EXPRESS THE FACT THAT THEY WOULD BE AGREEABLE TO REHAB. I AM AVAILABLE IF THEY HAVE ANY ADDITIONAL QUESTIONS.
[2022-09-08] MEDS: Acetaminophen 325 MG TABLET 650 MG PO (14:52)
--- NOTE | 2022-09-08 15:19 | MHC.CM.PN ---
Addendum entered by Jaja Bird 09/08/22 15:24: PTS DAUGHTER WILL BRING HER HCP IN TOMORROW MORNING Original Note: CM MET WITH PT AND FAMILY AT BEDSIDE THEY EXPRESSED CONCERNS THAT THEY WILL DISCUSS WITH STROKE NURSE THEY ALSO CONFIRM [facility] IS THEIR FIRST CHOICE FOR ACUTE REHAB PT HAS BEEN THERE IN THE PAST [facility] IS OFFERING AND HAS SUBMITTED FOR INSURANCE AUTH A COVID SWAB WILL BE DONE TODAY IN PREPARATION FOR EXPECTED DC TOMORROW
[2022-09-08 16:00] VITALS: BP 130/50; PULSE 68; RESP 20; TEMP 36.9; O2SAT 100
[2022-09-08 16:49] LABS: Glucose, Whole Blood 113 mg/dL (60-115)
[2022-09-08 18:22] LABS: COVID-19 Test Negative (Negative); IDNOW Serial# 16C4AD1C
[2022-09-08 19:52] VITALS: BP 162/72; PULSE 70; RESP 20; TEMP 36.6; O2SAT 100
[2022-09-08 20:17] LABS: Glucose, Whole Blood 83 mg/dL (60-115)
[2022-09-08] MEDS: risperiDONE 1 MG TABLET PO (22:19)
[2022-09-08] MEDS: Insulin Glargine,Hum.rec.anlog 100 UNIT/ML 10 ML VIAL 10 UNIT SUBCUT (22:20)
[2022-09-09] VITALS: BP 143/66; PULSE 62; RESP 18; TEMP 36.1; O2SAT 93
[2022-09-09 04:00] VITALS: BP 165/74; PULSE 59; RESP 20; TEMP 36.1; O2SAT 96
[2022-09-09] MEDS: Enoxaparin Sodium 40 MG/0.4 ML SYRINGE SUBCUT (05:51)
[2022-09-09 07:34] VITALS: BP 147/77; PULSE 62; RESP 20; TEMP 36.1; O2SAT 94
[2022-09-09 07:51] LABS: Glucose, Whole Blood 97 mg/dL (60-115)
[2022-09-09] MEDS: polyethylene glycoL 3350 17 GM POWD.PACK PO (09:20)
[2022-09-09] MEDS: 0.9 % Sodium Chloride Flush 3 ML SYRINGE IVFLUSH (09:21)
[2022-09-09] MEDS: Sertraline HCL 100 MG TABLET 200 MG PO (09:21)
[2022-09-09] MEDS: lisinopriL 10 MG TABLET 30 MG PO (09:21)
[2022-09-09] MEDS: Atorvastatin Calcium 40 MG TABLET PO (09:21)
[2022-09-09] MEDS: Multivitamin TABLET 1 TAB PO (09:21)
[2022-09-09] MEDS: metFORMIN HCl 500 MG TABLET PO (09:21)
[2022-09-09] MEDS: Cholecalciferol (Vitamin D3) 25 MCG TABLET 50 MCG PO (09:22)
--- NOTE | 2022-09-09 09:51 | P.PNIM_ITS ---
Subjective Subjective Date of Service: 09/09/22 Interval History: f/u on elevated BP , acute stroke Patient continues to be very weak particularly on the left side, persistent left mouth droop and double vision Physical Exam Vital Signs: Vital Signs: Last Vital Signs Temp 96.9 F 09/09/22 07:34 Pulse 62 09/09/22 07:34 Resp 20 09/09/22 07:34 BP 147/77 H 09/09/22 07:34 Pulse Ox 94 09/09/22 07:34 O2 Del Method 09/09/22 07:34 BMI result Body Mass Index 19.5 Const: Other: General: AO X 3, no acute distress Resp: CTA bilateral CVS: S1,S2,RRR GI: +BS, NT, no distention Skin: No rash Neuro: considerable weaknessin on the left side, not able stand, left mouth droop left eye partially closed and sees double--essentially unchaged from prior Psych: appropriate affect Neuro: Other: She is drowsy but I was able to wake her up and she answered simple questions. There was moderate right-sided facial weakness. Speech was slightly slurred. She was able to move all 4 extremities with trace plantars. Extraocular muscles were intact. Visual carrillo seem to be normal. Objective Data Active Medications Acetaminophen (Acetaminophen 325 Mg Tablet) 650 mg PO Q6H PRN PRN Reason: Pain, Mild (Pain Scale 1-3) Last Admin: 09/08/22 14:52 Dose: 650 mg Documented By: ARIANA Albuterol Sulfate (Albuterol Sulfate 90 Mcg 8 Gm Inhaler) 1 puff INHALE QID PRN PRN Reason: Shortness Of Breath Or Wheezing Aspirin (Aspirin Enteric Coated 81 Mg Tablet.) 81 mg PO DAILY [facility] Last Admin: 09/09/22 09:37 Dose: Not Given Documented By: LIVE Non-Admin Reason: can not crush Atorvastatin Calcium (Atorvastatin Calcium 40 Mg Tablet) 40 mg PO DAILY [facility] Last Admin: 09/09/22 09:21 Dose: 40 mg Documented By: LIVE Dextrose (Dextrose 50 % 25 Gm/50 Ml Vial) 25 gm IVPUSH Q15M PRN; Protocol PRN Reason: per Hypoglycemia Standing Ord. Enoxaparin Sodium (Enoxaparin Sodium 40 Mg/0.4 Ml Syringe) 40 mg SUBCUT Q24H [facility] Last Admin: 09/09/22 05:51 Dose: 40 mg Documented By: ROSALINDA Glucose (Glucose Gel 15 Gm Gel..Gram.) 15 gm PO Q15M PRN; Protocol PRN Reason: per Hypoglycemia Standing Ord. Insulin Glargine (Insulin Glargine,Hum.Rec.Anlog 100 Unit/Ml 10 Ml Vial) 10 unit SUBCUT BEDTIME [facility] Last Admin: 09/08/22 22:20 Dose: 10 unit Documented By: ROSALINDA Insulin Human Lispro (Insulin Lispro 100 Unit/Ml 3 Ml Vial) 0 unit SUBCUT QIDACHS [facility]; Protocol Last Admin: 09/09/22 09:22 Dose: Not Given Documented By: LIVE Non-Admin Reason: No Insulin Coverage Lisinopril (Lisinopril 10 Mg Tablet) 30 mg PO DAILY [facility]; Protocol Last Admin: 09/09/22 09:21 Dose: 30 mg Documented By: LIVE Meclizine HCl (Meclizine Hcl 25 Mg Tablet) 25 mg PO BID PRN PRN Reason: dizziness Last Admin: 09/07/22 17:12 Dose: 25 mg Documented By: LAURA Melatonin (Melatonin 3 Mg Tablet) 6 mg PO BEDTIME PRN PRN Reason: Insomnia Metformin HCl (Metformin Hcl 500 Mg Tablet) 500 mg PO BIDWM [facility] Last Admin: 09/09/22 09:21 Dose: 500 mg Documented By: LIVE Multivitamins/Vitamin C (Multivitamin Tablet) 1 tab PO DAILY [facility] Last Admin: 09/09/22 09:21 Dose: 1 tab Documented By: LIVE Pt Own (Ursodiol 250 (Mg Tablet)) 250 mg PO TID [facility] Last Admin: 09/09/22 09:23 Dose: 250 mg Documented By: LIVE Ondansetron HCl (Ondansetron Hcl 4 Mg/2 Ml Vial) 4 mg IVPUSH Q8H PRN PRN Reason: Nausea and Vomiting Last Admin: 09/06/22 21:51 Dose: 4 mg Documented By: NOE Pharmacy Consult (Consult Rx Perform Med Rec) 1 each MISCELLANE ONCE PRN PRN Reason: Consult order Polyethylene Glycol (Polyethylene Glycol 3350 17 Gm Powd.Pack) 17 gm PO BID [facility] Last Admin: 09/09/22 09:20 Dose: 17 gm Documented By: LIVE Risperidone (Risperidone 1 Mg Tablet) 1 mg PO BEDTIME [facility] Last Admin: 09/08/22 22:19 Dose: 1 mg Documented By: ROSALINDA Sertraline HCl (Sertraline Hcl 100 Mg Tablet) 200 mg PO DAILY [facility] Last Admin: 09/09/22 09:21 Dose: 200 mg Documented By: LIVE Sodium Chloride (0.9 % Sodium Chloride Flush 3 Ml Syringe) 3 ml IVFLUSH QSHIFT [facility] Last Admin: 09/09/22 09:21 Dose: 3 ml Documented By: LIVE Vitamin D (Cholecalciferol (Vitamin D3) 25 Mcg Tablet) 50 mcg PO DAILY [facility] Last Admin: 09/09/22 09:22 Dose: 50 mcg Documented By: LIVE Labs 09/06/22 06:45 09/08/22 07:10 Labs: Laboratory Results - last 24 hr 09/08/22 09/08/22 09/08/22 11:09 16:45 18:00 POC Glucose 88 113 COVID-19 (JAMES) Negative COVID-19 Clin Com See Note 09/08/22 09/09/22 20:10 07:37 POC Glucose 83 97 COVID-19 (JAMES) COVID-19 Clin Com Assessment and Plan (1) Cerebral infarction: Status: Acute (2) Hypertension: Status: Acute Plan 61-year-old female with pertinent history of essential hypertension, epu-eynsxte-odduzsame diabetes mellitus, mood disorder, mixed hyperlipidemia, primary biliary cholangitis, MEZA who presents to the emergency department for evaluation of headache and dizziness. #.? Hypertensive urgency/emergency:?with associated facial weakness, slur speech and dysphagia. See by Dr. Delgado with the following recommendation She has pontine lesions that are suggestive of atherothrombotic hypertension related strokes.? This could result in dysarthria, facial weakness, and arm or leg weakness and unsteadiness.? There is no particular solution except that patient partially recover from this problem.? Mainstay of management is blood pressure control and avoidance of strokes.? Anti-platelet agent such as baby aspirin daily and statin are also recommended.? Patient should be.? Advised to not drink alcohol as binge alcohol drinking can also either cause this problem or make it worse. MRI findings with motion degradation ? #No acute infarct or other acute intracranial abnormality. Redemonstration of multiple chronic lacunar infarcts with new infarcts in the left centrum semiovale and progression of lacunar infarcts in the liana compared to MRI from 07/23/2021. #Patient clearly has acute stroke with clinical finding as above and some acute finding on MRI as well. Will continue optimization of BP meds, Statin, ASA, echo with buble. She will need extensive PT, OT Speech therapy and likely acute rehab. #.? Diabetes, hypoglycemia this morning #.? Hypomagnesemia:? Repleted #.? Mood disorder: Continue home mood stabilizers #.? Primary biliary cholangitis:? On ursodiol #.? Mixed hyperlipidemia: On statin Need for inpatient: management of acute stroke Above discussed with daughter and she wanted patient transfered to [facility], there is no clinical necessity for transfer yet, I reached tout to [facility] and they declined Time Spent With Patient Time: Total time managing care of this patient today ____ minutes. Quality Stroke Does the patient have a stroke diagnosis?: No VTE Prior VTE?: No VTE Risk Level:: Medical - moderate - high VTE Device Contraindication: Treatment Not Indicated VTE Drug Contraindication: N/A - Med Ordered
--- NOTE | 2022-09-09 10:00 | CA_ITS ---
Transthoracic Echocardiogram Amended Patient (Last, First, Middle): Valerie Keenan, Gender: Female Date of : 1960 Age: 62 Procedure Date: 09/09/2022 Procedure Type: Transthoracic Echocardiogram Location: [facility] [place] Height: 160.02 cm Weight: 49.9 kg BSA: 1.50 m2 Heart Rate: 63 bpm BP: 147 / 77 mmHg Air Brush Operator: FELISHA Santos MD: Anant Stewart MD Service Station Operator: Sharath Erickson MD Symptoms: stroke, please perform bubble Study Quality: Adequate/Contrast ECG Rhythm: Sinus Conclusions: - 1. Normal LV systolic function with grade 1 diastolic dysfunction 2. Normal cardiac valvular Doppler 3. Normal RV systolic pressure 4. No pericardial effusion 5. No clear evidence of PFO Findings Procedure Information Contrast agent, definity, is being given per protocol without apparent complications. Left Ventricle Normal left ventricular size, thickness, and systolic function. The visually estimated ejection fraction is between 65-70%. Spectral Doppler is indicative of an impaired relaxation filling pattern. E/E prime ratio is <8, consistent with normal filling pressures. Evidence suggests grade I (mild) diastolic dysfunction. Right Ventricle Normal right ventricular cavity size and systolic function. Atria Both atria are normal in size. There is no evidence of a patent foramen ovale. Saline bubble study was performed after the study was reported. No evidence of PFO based on this study. Aortic Valve Normal aortic valve structure and function. There is no aortic valve stenosis. There is no aortic valve regurgitation. Mitral Valve Normal mitral valve structure and function. There is no mitral valve regurgitation. There is no mitral valve stenosis. Pulmonic Valve The pulmonic valve is likely normal. There is trace pulmonic valve regurgitation. Tricuspid Valve Normal tricuspid valve structure. There is trace tricuspid valve regurgitation. The right ventricular systolic pressure is normal. The right ventricular systolic pressure is 19 mmHg. Normal right atrial pressure. There is no evidence of pulmonary hypertension. Great Vessels All visible segments of the aorta are normal in size. The pulmonary artery was not well visualized. Venous The inferior vena cava is normal in size and collapses greater than 50% with inspiration. Pericardium/Pleural There is no evidence of pericardial effusion. Prior Study Comparison No significant change compared to prior study dated: 10/08/2018. Measurements 2D Linear Measurements IVSd: 1.22 0.6-0.9/0.6-1.0 cm LVIDd: 2.55 3.9-5.3/4.2-5.9 cm LVIDd Index: 1.70 2.4-3.2/2.2-3.1 cm/m2 LVIDs: 1.85 2.0-3.6 cm LVPWd: 0.91 0.7-1.1 cm LA Diam: 3.00 2.7-3.8/3.0-4.0 cm LAIDs Index: 2.00 1.5-2.3 cm/m2 LV Mass: 89.22 67-162/88-224 g LV Mass Index: 59.48 43-95/49-115 g/m2 LVOT Diam: 1.80 3.0+(-)1.3 cm 2D Volumes LA Vol: 17.60 2D Systolic Function EF 4C: 66.10 >55% EF 2C: 66.10 >55% EF BiP: 67.00 >55% Mitral Valve MV Pk E: 0.53 MV PK A: 0.83 MV Decel Time: 340.00 E/A: 0.60 E'Lateral: 5.77 E'Medial: 3.26 E/E' Med: 16.30 E/E' Lat: 9.20 PHT: 100.00 MVA PHT: 2.20 Decel Refugio: 1.56 Aortic Valve AoV Pk Imtiaz: 0.99 AoV Mn Imtiaz: 0.72 AoV VTI: 0.23 AoV Pk Grad: 4.00 Aov Mn Grad: 2.00 MARTINE Cont.VTI: 1.82 LVOT LVOT Pk Imtiaz: 0.80 LVOT Mn Imtiaz: 0.54 LVOT VTI: 0.17 LVOT Pk Grad: 3.00 LVOT Mn Grad: 1.00 LVOT Diam: 1.80 LVOT Area: 2.54 Diastolic Function MV Pk E: 0.53 MV Pk A: 0.83 E/A: 0.60 E'Medial: 3.26 E/E' Med: 16.30 E' Laterial: 5.77 E/E' Lat: 9.20 Right Ventricle TAPSE (mm): 15.70 TVS' Imtiaz: 7.78 Tricuspid Valve TR Pk Imtiaz: 1.68 TR Pk Grad: 11.00 RA Press: 8.00 RVSP: 19.00 Great Vessels Aorta Sinus of Valsalva: 2.50 2.0-3.5 cm Ao Asc: 2.70 2.1-3.4 cm Pulmonary Valve PV Pk Imtiaz: 0.75 Peak PV Grad: 2.00 Updated in Other Vendor System with Status of Final Sharath Erickson MD electronically signed on 10/26/2022 4:09:17 PM with status of Final
[2022-09-09 10:37] VITALS: BP 147/77; PULSE 62; O2SAT 94
--- NOTE | 2022-09-09 11:31 | PM.DS ---
DS: Providers Provider Date of Service: 09/09/22 Date of admission: 09/08/22 16:22 Primary care physician: Ludy Alonso MD Consults: 09/07/22 09:06 Consult to Neurology Routine Consulting Provider: [facility] Reason for consultation: slur speech, facial asymetry Has provider been notified: No DS: Diagnosis Discharge Diagnosis (1) Cerebral infarction: Status: Acute (2) Hypertension: Status: Acute DS: Summary Hospital Course Hospital Course: Chief Complaint: Dizziness This is a 61-year-old female with pertinent history of essential hypertension, dhz-suggyxp-sjzguebbk diabetes mellitus, mood disorder, mixed hyperlipidemia, primary biliary cholangitis, MEZA who presents to the emergency department for evaluation of headache and dizziness.? Patient states her dizziness and headache started 1 day prior to presentation.? States he is compliant with home medications.? She was seen by her specimen preparation assistant who noticed blood pressure and blood sugar was high and sent to the ER for further evaluation.? She denies nausea, vomiting, abdominal pain, fever, chills, chest discomfort, palpitations, shortness of breath, changes in urinary or bowel habits. In the emergency department, patient's blood pressure was found to be elevated with systolics as high as 236 and blood sugar was noted to be 419 Hospital course: Patient initially presented with dizziness and extremely high blood pressure which according to the daughter has not been an issue in the past, CT of the head on presenation was negative for acute stroke and she did not exhibit other neurological symptoms at that time. Blood pressure was treated with IV medication and come down and she was started on the following day on her usual home medications. Over the course of the next she started having symptoms of left mouth droop, weakness on the left side slur speech. A repeat CT of the head was performed at this time and still did not reveal acute stroke however an MRI of the head did show evidence of acute stroke as detail here: #No acute infarct or other acute intracranial abnormality. Redemonstration of multiple chronic lacunar infarcts with new infarcts in the left centrum semiovale and progression of lacunar infarcts in the liana compared to MRI from 07/23/2021. Patient was evaluated by Neurologist Dr. Delgado with the following assessment and recommendation. She has pontine lesions that are suggestive of atherothrombotic hypertension related strokes.? This could result in dysarthria, facial weakness, and arm or leg weakness and unsteadiness.? There is no particular solution except that patient partially recover from this problem.? Mainstay of management is blood pressure control and avoidance of strokes.? Anti-platelet agent such as baby aspirin daily and statin are also recommended.? Patient should be.? Advised to not drink alcohol as binge alcohol drinking can also either cause this problem or make it worse Patient's became even more promient the following 2 days and clincally acute stroke is very evident, she now has double vision, marked weaknes on left side and not able to stand on her own at this time, her speech is slur and has some degree of dysphagia with an obvious left mouth shift. She has been receiving PT, OT and speech therapy which should be continued in an acute inpatient rehab setting. Medical management to target blood pressure control which is currently optimal, statin and Aspirin ? #.? Diabetes with hyperglycemia, she was started on Lantus 10 units and restarted on Metfomrin, BS presently 164, additionally on Sliding scale insulin #.? Hypomagnesemia:? Repleted #.? Mood disorder: Continue home mood stabilizers #.? Primary biliary cholangitis:? On ursodiol #.? Mixed hyperlipidemia: On statin Time Spent with Patient Time attestation: Total time managing care of this patient today ____ minutes. Discharge coordination time: Greater than 30 minutes Quality: Safe Use of Opioids Does Pt have an Active Cancer Diagnosis on the Problem List?: No Quality: Stroke Does the patient have a stroke diagnosis?: No Physical Exam Vital Signs: Vital Signs: Last Vital Signs Temp 96.9 F 09/09/22 07:34 Pulse 62 09/09/22 10:37 Resp 20 09/09/22 07:34 BP 147/77 H 09/09/22 10:37 Pulse Ox 94 09/09/22 10:37 O2 Del Method 09/09/22 07:34 BMI result Body Mass Index 19.5 DS: Data Data Completed and Pending Labs on day of discharge: Laboratory Results - last 24 hr 09/08/22 09/08/22 09/08/22 16:45 18:00 20:10 POC Glucose 113 83 COVID-19 (JAMES) Negative COVID-19 Clin Com See Note 09/09/22 07:37 POC Glucose 97 COVID-19 (JAMES) COVID-19 Clin Com Discharge Plan Discharge Anticipated Discharge Date/Time: 09/09/22 11:44 Patient Disposition: Xfer Inpatient Rehab Fac Discharge Diagnosis: Acute stroke Referrals: [facility] [Outside] - 1 Week Po,Ludy Minaya MD [Primary Care Provider] - 1 Week Discharge Medications: New insulin glargine [Lantus U-100 Insulin] 100 unit/mL Solution 10 unit subcut BEDTIME Qty: 10 0RF insulin lispro [Humalog U-100 Insulin] 100 unit/mL Solution See Protocol subcut QIDACHS Qty: 10 0RF Protocol: Insulin Correction Scale Less than or equal to 110 ---- Give (units): 0 111 to 150 Give (units): 0 151 to 200 Give (units): 2 201 to 250 Give (units): 4 251 to 300 Give (units): 6 301 to 350 Give (units): 8 Greater than 350 Give (units): 10 Call MD if Blood Glucose > : 350 Continued (DME) Transport wheelchair See Rx Instructions .Route .MEDSUPPLY Qty: 1 0RF Rx Instructions: As directed multivitamin Tablet 1 tab PO DAILY 90 Days Qty: 90 3RF polyethylene glycol 3350 [Miralax] 17 gram powder in packet 17 g PO BID Qty: 100 0RF (DME) lancets [FreeStyle Lancets] 28 gauge misc See Rx Instructions .ROUTE .MEDSUPPLY Qty: 100 3RF Rx Instructions: As directed check the blood sugar once a day atorvastatin 40 mg tablet 40 mg PO DAILY Qty: 90 3RF cholecalciferol (vitamin D3) 50 mcg (2,000 unit) capsule 50 mcg PO DAILY 30 Days Qty: 30 11RF ursodiol 250 mg tablet 250 mg PO TID Qty: 270 1RF aspirin 81 mg tablet,delayed release (DR/EC) 81 mg PO DAILY Qty: 90 3RF lisinopril 30 mg tablet 30 mg PO DAILY 90 Days Qty: 90 1RF Rx Instructions: take in am sertraline 100 mg tablet 200 mg PO DAILY 30 Days Qty: 60 2RF (DME) adult diapers size small petite See Rx Instructions .Route .MEDSUPPLY Qty: 90 12RF Rx Instructions: As directed (DME) Adult pull ups small package See Rx Instructions .Route .MEDSUPPLY Qty: 90 11RF Rx Instructions: 8 Per day (PRN), 11 refills for 12 months. meclizine 25 mg tablet 25 mg PO BID PRN (Reason: dizziness) Qty: 20 0RF lidocaine 5 % ointment 1 appl topical DAILY PRN (Reason: pain) Qty: 30 0RF Rx Instructions: low back (DME) pen needle, diabetic [Comfort EZ Pen [place]] 31 gauge x 3/16 needle See Rx Instructions .Route Qty: 100 3RF Rx Instructions: As directed (DME) MOUTH GUARD See Rx Instructions .Route .MEDSUPPLY Qty: 1 0RF Rx Instructions: As directed (DME) Walker with seat and wheels See Rx Instructions .Route .MEDSUPPLY Qty: 1 0RF Rx Instructions: As directed psyllium husk [Fiber (psyllium husk)] 0.52 gram capsule 0.52 g PO BEDTIME PRN (Reason: constipation) 90 Days Qty: 90 3RF metformin 500 mg tablet 500 mg PO BIDWMEAL 90 Days Qty: 180 1RF clotrimazole 1 % cream 1 appl topical BID 28 Days Qty: 45 0RF miconazole nitrate [Zeasorb AF] 2 % powder 1 appl topical BID Qty: 85 0RF albuterol sulfate 90 mcg/actuation HFA aerosol inhaler 1 inh inhalation QID PRN (Reason: Shortness Of Breath Or Wheezing) (DME) FreeStyle Lite Strips Strip See Rx Instructions .ROUTE .MEDSUPPLY Qty: 100 11RF Rx Instructions: As directed 3 x/day risperidone 0.5 mg tablet 1 mg PO BEDTIME Plenvu 140-9-5.2 gram powder in packet, sequential See Rx Instructions PO .COMPLEX Qty: 3 0RF Rx Instructions: PO Discharge Orders: Discharge Order (Routine); Ordered 09/09/22 Ordered By: Anant Stewart Diet: see below Activity on Discharge: As tolerated Stand Alone Forms: Patient Portal Discharge page Care Plan Goals: Recovery from stroke Health Concerns: Acute stroke Plan of Treatment: Acute inpatient rehab: PT, OT, Speech thereapy, Blood pressure and diabetes controle Assessment: Dysphasia Diet Status: Recommend intermittent supervision and strict aspiration precautions. Liquid Consistency and Strategies for Safe Swallow: Liquid Intake Recommendation: Thin Liquid Intake Strategies: No Straws Liquids by Teaspoon Only Solid Food Consistency: Dietary Recommendations: Grnd/Mech Altered (NDD2) Oral Medication Intake: Whole/crushed with Puree Please contact the pharmacy regarding appropriate crushable or liquid drug formulations that are available whenever modified delivery is recommended. Compensatory Strategies and Precautions to be Taken for Safe Swallow: Sitting Upright (90 deg) No Straw Liquids from Spoon Small Bites and Sips Alternate Liquids/Solids Oral Check Avoid Specific Foods Supervision While Eating and Drinking for Safe Swallow: Total Assistance (1:1) Foods to Avoid: Avoid hard, sticky, tough to chew solids Swallowing Recommended Treatments: Compens. Strategy Educat. Recommendation for Speech: Outpatient Speech Therapy Inpatient Speech Therapy Modified Barium Swallow Study - Inpatient Modified Barium Swallow Study - Outpatient Comment: Recommend DOWNGRADE to GROUND/MECH ALTERED (NDD2), continue with THIN liquids, pills CRUSHED in puree when possible. Pt requires full assist. Pt may benefit from MBSS d/t worsening dysphagia symptoms and reports of globus sensation. Discharge Date/Time: 09/09/22 15:10
[2022-09-09 11:39] LABS: Glucose, Whole Blood 164 mg/dL (60-115)
--- NOTE | 2022-09-09 14:56 | MHC.SL.SWA ---
Speech Pathologist Impression: Oropharyngeal dysphagia, risk of aspiration Risk of Aspiration Due to: Lethargy Neurological Condition Poor PO Intake Weak Cough Weak Voice Dysphasia Diet Status: No change Liquid Consistency and Strategies for Safe Swallow: Liquid Intake Recommendation: [place] Thick Liquid Intake Strategies: No Straws Liquids by Teaspoon Only (or controlled cup) Solid Food Consistency: Dietary Recommendations: Grnd/Mech Altered (NDD2) Oral Medication Intake: Crushed with Puree Please contact the pharmacy regarding appropriate crushable or liquid drug formulations that are available whenever modified delivery is recommended. Compensatory Strategies and Precautions to be Taken for Safe Swallow: Sitting Upright (90 deg) No Straw Liquids from Spoon Small Bites and Sips Rate of Ingestion Change Oral Check Avoid Specific Foods Supervision While Eating and Drinking for Safe Swallow: Total Assistance (1:1) Foods to Avoid: Avoid hard, sticky, tough to chew solids Swallowing Recommended Treatments: Compens. Strategy Educat. Recommendation for Speech: Outpatient Speech Therapy Inpatient Speech Therapy Modified Barium Swallow Study - Inpatient Modified Barium Swallow Study - Outpatient Armor Officer Clinican/Clinical Fellow: No Supervisory Statement: I have reviewed and agree with the student/clinical fellow's documentation: N/A Speech Language Pathologist: Norma Velazquez M.A., CCC-CONTRACT OFFICER
== END 2022-09-09 15:10 | DRG 199 ==
LOC: HO.ED 23:25 → HO.EDOVER 09-06 04:00 → HO.IMC 09-06 06:27
PROVIDERS: Admitting Provider Student in an Organized Health Care Education/Training Program; Emergency Provider Internal Medicine; PCP Internal Medicine; Visit Provider Internal Medicine
DX: I16.0 Hypertensive urgency (principal); E11.649 Type 2 diabetes mellitus with hypoglycemia without coma; E11.42 Type 2 diabetes mellitus with diabetic polyneuropathy; M35.00 Sjogren syndrome, unspecified; E11.65 Type 2 diabetes mellitus with hyperglycemia; E03.8 Other specified hypothyroidism; K74.3 Primary biliary cirrhosis; E78.2 Mixed hyperlipidemia; K76.0 Fatty (change of) liver, not elsewhere classified; F39 Unspecified mood [affective] disorder; E83.42 Hypomagnesemia; R29.810 Facial weakness; I69.398 Other sequelae of cerebral infarction; R26.89 Other abnormalities of gait and mobility; Z20.822 Contact with and (suspected) exposure to COVID-19; Z98.84 Bariatric surgery status; Z79.4 Long term (current) use of insulin; Z79.82 Long term (current) use of aspirin; Z79.84 Long term (current) use of oral hypoglycemic drugs; Z79.899 Other long term (current) drug therapy
CPT/HCPCS: 36415; 70450; 70551; 80048; 80061; 82565; 82947; 83735; 84484; 85025; 85610; 85730; 87635; 92526; 92610; 93005; 93306; 97162; 97166; 97530; 99285; J1650; J2405; J3475; Q9957

== ENCOUNTER 2022-10-25 14:35 | Inpatient (IN) | payer OTHER, SELFPAY ==
--- NOTE | ~2022-10-25 | MR_ITS ---
EXAMINATION: MR BRAIN WITHOUT CONTRAST CLINICAL INFORMATION: CVA COMPARISON: CTA head and neck 10/25/2022, MRI brain without contrast 09/06/2022 TECHNIQUE: Multiplanar multisequence MR imaging of the brain was obtained without intravenous contrast. FINDINGS: Small acute infarcts involving the left precentral gyrus at the vertex and left frontal deep white matter. Stable chronic blood products in the liana. No new intraparenchymal blood products. Scattered periventricular and deep white matter T2 FLAIR hyperintensities consistent with mild underlying microangiopathy. Redemonstration of numerous chronic lacunar infarcts in the right frontal periventricular white matter, right thalamus, liana, and left centrum semiovale. No hydrocephalus. The ventricles are normal in morphology and size. The major flow voids at the skull base are preserved. The midline structures are normal. The cerebellar tonsils are normally positioned. The craniocervical junction is normal. Marrow signal is within normal limits. The visualized soft tissues are without significant abnormality. Small right mastoid fluid. MR/MR head/brain wo con IMPRESSION: 1. Small acute infarcts involving the left precentral gyrus at the vertex and left frontal deep white matter. 2. Redemonstration of multiple supratentorial and pontine chronic lacunar infarcts and mild chronic white matter microangiopathy
--- NOTE | ~2022-10-25 | CT_ITS ---
EXAMINATION: CT ANGIOGRAM HEAD CT ANGIOGRAM NECK CLINICAL INFORMATION: Stroke COMPARISON: Same day CT head and CT angiography head and neck 07/23/2021 TECHNIQUE: Initial noncontrast program proposals coordinator imaging of the head and neck was performed. Comparison is made with noncontrast head CT from earlier today. Test bolus sequences followed by intravenous administration 70 mL of Omnipaque 350. Helical imaging was performed in the axial plane from the aortic arch to the skull vertex. Delayed postcontrast imaging of the head was also performed. The data was processed at the clinical technologist's workstation for generation of MIP sequences. Angled MIPs and volume rendered reformatted images were also generated at an offline 3D workstation. Stenoses are assessed in accordance with Hood et al. Quantification of Carotid Stenosis on CT Angiography. AJR 2006. 27(1):13-19. [address] CT examination was performed using dose optimization techniques as appropriate, variously including the following: *Automated exposure control *Adjustment of mA and/or kV according to patient size (this includes techniques or standardized protocols for targeted exams where dose is matched to indication/reason for exam; i.e. extremities or head) *Use of iterative reconstruction technique DLP: 1232 mGy-cm FINDINGS: CT HEAD: Noncontrast head CT findings are discussed separately. No pathologic intra-axial enhancement within limitations of CT or regional oligemia. CTA HEAD: Venous contamination compresses diagnostic assessment. Calcified plaque along the carotid siphons contributes to moderate left supraclinoid and mild left supraclinoid ICA stenosis with moderate to severe right cavernous and supraclinoid ICA stenosis. 2 mm inferiorly projecting vascular protrusion arising from the terminal segment of the left supraclinoid ICA may reflect infundibular origin versus aneurysm. The MCA vascular complexes are normal bilaterally. The ALEXANDER complexes are patent with a dominant left A1 segment. The intradural vertebral arteries are patent. The basilar artery is normal. The posterior cerebral arteries are widely patent. No proximal large vessel occlusion. No high flow vascular malformations. No evidence of dural arteriovenous fistula. Timing of the contrast bolus allows assessment of the major dural venous sinuses, which all opacify normally CTA NECK: Degraded by motion artifact. Two vessel branching pattern of the arch with left common carotid artery arising from the brachiocephalic trunk. Mild fibrofatty/calcified plaque in the aortic arch and left subclavian artery origin. The origins of the great vessels are widely patent. The common carotid arteries are widely patent. Predominantly calcified plaque at the left greater than right, carotid bifurcations without luminal narrowing of the internal carotid arteries and calcific plaque of the distal left cervical ICA prior to entering the skull base. Mild undulating luminal irregularity of the distal cervical internal carotid arteries likely reflecting underlying fibromuscular dysplasia. The left vertebral artery is dominant. Calcified plaque moderately narrows the nondominant right vertebral artery origin with widely patent dominant left vertebral artery origin. Focal calcific plaque of the extradural vertebral arteries near the dural insertion with associated focal moderate narrowing on the right, otherwise widely patent extradural vertebral arteries. CT NECK: 3 mm air-filled internal laryngocele on the right. The salivary glands are unremarkable. Coarse calcification within the left thyroid gland. No pathologically enlarged cervical chain lymph nodes. Multilevel cervical spondylitic disease. Moderate C5-C6 discogenic disease with areas a prominent ventral disc osteophyte abutting the posterior wall of the hypopharynx and the post cricoid region. Patchy groundglass attenuation with interlobular septal thickening in the imaged lungs may reflect mild pulmonary edema. CT/CT angio head neck stroke IMPRESSION: 1. No proximal large vessel occlusion. 2. Calcified plaque causes moderate left supraclinoid and mild left supraclinoid ICA stenosis with moderate to severe right cavernous and supraclinoid ICA stenosis. 3. 2 mm inferiorly projecting vascular protrusion arising from the terminal segment of the left supraclinoid ICA may reflect infundibular origin versus aneurysm. 4. Moderate right vertebral artery origin stenosis and focal ossific plaque moderately narrowing the right vertebral artery at the dural insertion. 5. Mild undulating luminal irregularity of the distal cervical internal carotid arteries likely reflecting underlying fibromuscular dysplasia. 6. Patchy groundglass attenuation with interlobular septal thickening in the imaged lungs may reflect mild pulmonary edema. Findings were communicated to Aminata Sanchez on 10/25/2022 at 3:38 PM.
--- NOTE | ~2022-10-25 | XR_ITS ---
EXAMINATION: XR CHEST CLINICAL INFORMATION: Short of breath COMPARISON: 04/30/2022 TECHNIQUE: Frontal view of the chest was obtained. FINDINGS: Cardiac leads overlie the chest. The lungs are well expanded. There is no focal consolidation, edema, or effusion. No pneumothorax. The cardiomediastinal silhouette is within normal limits of size with a calcified aorta. No acute osseous abnormality. XR/XR chest 1V IMPRESSION: No acute pulmonary disease.
--- NOTE | ~2022-10-25 | CT_ITS ---
EXAMINATION: CT HEAD WITHOUT CONTRAST (STROKE PROTOCOL) CLINICAL INFORMATION: Stroke protocol. Right-sided weakness. COMPARISON: CT brain 09/06/2022 TECHNIQUE: Contiguous axial imaging was performed from the skull base to vertex without intravenous administration of contrast. This CT examination was performed using dose optimization techniques as appropriate, variously including the following: *Automated exposure control *Adjustment of mA and/or kV according to patient size (this includes techniques or standardized protocols for targeted exams where dose is matched to indication/reason for exam; i.e. extremities or head) *Use of iterative reconstruction technique DLP: 506 mGy-cm FINDINGS: There is no acute intra-axial, extra-axial bleed, masses or midline shift. No acute infarction evolution seen. There are lacunar infarction right liana, left posterior internal capsule are stable and unchanged. Bilateral basal ganglia lacunar infarcts are not optimally visualized. The lateral ventricles are symmetrical in size and configuration but not enlarged. The alvarez to white matter differentiation is maintained. Bone windows reveal no calvarial abnormality. Bilateral paranasal sinuses and mastoid air cells are well-aerated and unremarkable. CT/CT head for stroke IMPRESSION: No acute intracranial process seen. This critical result was discussed with in ER at 2:50 p.m. on 10/25/2022. It was ascertained that the content and urgency of the report was understood at the time of direct communication.
--- NOTE | 2022-10-25 14:38 | ECG_ITS ---
Test Reason : stroke Blood Pressure : / mmHG Vent. Rate : 072 BPM Atrial Rate : 072 BPM P-R Int : 180 ms QRS Dur : 068 ms QT Int : 402 ms P-R-T Axes : 057 003 081 degrees QTc Int : 440 ms Normal sinus rhythm Minimal voltage criteria for LVH, may be normal variant ( R in aVL ) Borderline ECG When compared with ECG of 05-SEP-2022 22:28, No significant change was found Referred By: Aminata Sanchez Electronically Signed By:GIGI HOPPER
--- NOTE | 2022-10-25 14:45 | ED_ITS ---
HPI - Neuro Symptoms/Deficit General Chief Complaint: Stroke Stated Complaint: STROKE ALERT,LKWT 8PM T-1,-THINNER PER EMS Time Seen by Provider: 10/25/22 14:38 History of Present Illness HPI Narrative: And some yes numbness patient is a 62-year-old exude e-mail with a the history of left-sided weakness secondary to CVA. He presented today with having new onset of right-sided weakness. Facial droop. Right arm weakness. This is new. The last time patient was witnessed to be normal was approximately 21:00 last night. No fever no chills. No chest pain or shortness of breath no d iaphoresis. Patient is from home. No coughing no congestion or upper respiratory symptoms. No diaphoresis straight Related Data Home Medications Medication Instructions Recorded Confirmed albuterol sulfate 90 mcg/actuation 1 inh inhalation QID PRN Shortness 04/28/20 10/17/22 aerosol inhaler Of Breath Or Wheezing lisinopril 10 mg tablet 10 mg PO BID 10/17/22 10/17/22 metformin 500 mg tablet 500 mg PO BIDWM 10/17/22 10/17/22 atorvastatin 40 mg tablet 40 mg PO BEDTIME 10/25/22 loratadine 10 mg tablet 10 mg PO BEDTIME 10/25/22 polyethylene glycol 3350 17 gram 17 g PO DAILY PRN constipation 10/25/22 oral powder packet (Purelax) sennosides 8.6 mg tablet (senna) 17.2 mg PO BEDTIME 10/25/22 simethicone 80 mg chewable tablet 80 mg PO TID 10/25/22 Previous Rx's Medication Instructions Recorded pen needle, diabetic 31 gauge x #100 ea 02/24/2109/22 (Comfort EZ Pen Nesbit) Transport wheelchair #1 ea 08/11/21 multivitamin 1 tab PO DAILY 90 days #90 tabs 09/13/21 Walker with seat and wheels #1 ea 09/28/21 blood sugar diagnostic (FreeStyle #100 ea 10/01/21 Lite Strips) lancets 28 gauge (FreeStyle #100 ea 12/28/21 Lancets) cholecalciferol (vitamin D3) 50 50 mcg PO DAILY 30 days #30 caps 03/28/22 mcg (2,000 unit) capsule aspirin 81 mg tablet,delayed 81 mg PO DAILY #90 tabs 04/20/22 release MOUTH GUARD #1 ea 06/08/22 adult diapers size small petite #90 ea 08/03/22 Adult pull ups #90 ea 08/04/22 miconazole nitrate 2 % topical 1 appl topical BID #85 grams 08/17/22 powder (Zeasorb AF) risperidone 0.5 mg tablet 1 mg PO BEDTIME #60 tabs 09/26/22 sertraline 100 mg tablet 200 mg PO DAILY 30 days #60 tabs 09/26/22 ursodiol 250 mg tablet 250 mg PO TID 30 days #90 tabs 10/12/22 Allergies Allergy/AdvReac Type Severity Reaction Status Date / Time Latex, Natural Rubber Allergy Intermediate Rash Verified 10/17/22 11:32 Sulfa (Sulfonamide AdvReac Intermediate Stomach Verified 10/17/22 11:32 Antibiotics) Upset [SULFA (SULFONAMIDE ANTIBIOTICS)] Morphine Sulfate AdvReac Intermediate Abdominal Uncoded 09/05/22 22:27 Pain Review of Systems Review of Systems: Positive right-sided weakness Yes all other systems are reviewed and are negative PMFSH Past Medical History Attestation statement: The following information was validated with the patient. Medical History BOB positive Asthma Cervical osteoarthritis CVA (cerebral vascular accident) Diabetes type 2, uncontrolled Diabetic polyneuropathy associated with type 2 diabetes mellitus Diabetic retinopathy associated with type 2 diabetes mellitus Dyslipidemia Fatty liver disease, nonalcoholic GERD (gastroesophageal reflux disease) History of CVA (cerebrovascular accident) History of sleep apnea History of umbilical hernia HTN (hypertension) Hypertension Hypertension Hypoglycemia after GI (gastrointestinal) surgery Osteoarthritis of right glenohumeral joint Postural hypotension Primary biliary cholangitis Shoulder pain, right Sjogrens syndrome Subclinical hypothyroidism Surgical History History of carpal tunnel release History of esophagogastroduodenoscopy (EGD) History of laparoscopic appendectomy History of partial hysterectomy Hx of section Hx of colonoscopy Hx of dilation and curettage Hx of gastric bypass Hx of tonsillectomy Family History Family History Father VT (myocardial infarction) Diabetes mellitus Mother Diabetes mellitus CVA (cerebral vascular accident) Maternal Grandmother Stomach cancer Sister Hemorrhagic cerebrovascular accident (CVA) Social History Social History Household Members: Spouse Housing: Apartment Are you a primary rn urgent care to a significant other at home: No Do you presently have visiting nurse or other home services: Yes Alcohol intake: never Patient Tobacco Use Status: Never used Tobacco e-Cigarette/Vaping Use: Never Used Second Hand Smoke Exposure: No Advance Directives: No Advance Directives Information Provided: No Advance Directives Date on File: 07/10/99 service: No Current occupational status: retired and disabled Cognitive needs: Yes (wheelchait) Hearing needs: No Vision needs: No Physical Exam Vital Signs: Vital Signs: Last Vital Signs Temp 97.7 F 10/25/22 15:33 Pulse 72 10/25/22 15:33 Resp 20 10/25/22 15:33 BP 189/75 H 10/25/22 15:33 Pulse Ox 97 10/25/22 15:33 O2 Del Method Room Air 10/25/22 15:33 BMI result Body Mass Index 21.4 Appearance: Alert. Oriented X3. No acute distress. Eyes: Pupils equal, round and reactive to light. ENT: Pharynx normal. Neck: Normal inspection. Neck supple. No lymph nodes noted. No crepitus CVS: Normal heart rate and rhythm. Pulses normal. Normal S1 and S2 Respiratory: No respiratory distress. Breath sounds normal. No Wheezing. No rales Abdomen: Soft and nontender. No rigidity. No distention. good BS x4 Skin: Skin warm and dry. Normal skin color. Normal skin turgor. Extremities: No lower extremity edema. Neurovascular intact to all extremities. No Lacerations. No Rash Neuro: Oriented X 3. Positive facial droop on the right side. Patient able lift up her right arm against gravity. There is a drop after holding the arm for approximately 3-4 seconds. Patient hand grasp is weaker on the right side. Unable to perform [id number] on the right. Medications Administered Discontinued Medications Generic Name Dose Route Start Last Admin Trade Name Freq PRN Reason Stop Dose Admin Iohexol 100 ml 10/25/22 15:17 10/25/22 15:17 Iohexol 350 Mg/Ml 100 Ml Infus..Btl IV 10/25/22 15:18 70 ml ONCE ONE Administration Medical Decision Making Medical Decision Making [facility] Narrative: Positive new right-sided weakness in a patient with a history of diabetes hypertension. History of CVA. He has a CT scan of the head was grossly negative for any acute evidence of bleeding. There is no evidence for fracture. There is no large mass noted. CTA of the head and neck showed no definite large vessel occlusion. Multiple moderate occlusion noted. Patient's electrolytes are pending. Sugar was greater than 100 no evidence for hypoglycemia. Last known normal time was yesterday at 21:00. She is not a candidate for tPA. He did not have a large vessel occlusion to warrant acute interventional clot extraction. Will admit patient for further evaluation. Likely patient had a stroke. Differential Diagnosis Differential Diagnoses: The differential diagnosis associated with the presentation includes CVA versus bleed versus hypoglycemia versus mass Admission/Observation Consideration of admission/observation: Escalation of care including admission/observation considered Consult Healthcare Provider Management of the patient was discussed with: Hospitalist Lab Data [facility] Lab Attestation statement: I reviewed the patient's lab results. 10/25/22 15:11 10/25/22 15:11 Labs: Lab Results 10/25/22 10/25/22 10/25/22 Range/Units 15:11 15:11 15:29 WBC 6.9 (4.8-10.8) X10*3/uL RBC 4.79 (4.20-5.50) X10*6/uL Hgb 12.0 (12.0-16.0) g/dl Hct 39.1 (37.0-47.0) % MCV 81.6 (80.0-98.0) fL MCH 25.1 L (27.0-33.0) pg MCHC 30.7 L (31.0-35.0) g/dl RDW 18.5 H (11.0-16.0) % Plt Count 262 (160-400) X10*3/uL MPV 12.7 H (9.4-12.3) fL Immature Gran % (Auto) 0.4 (0.0-0.4) % Neut % (Auto) 52.7 (45-73) % Lymph % (Auto) 35.8 (20-40) % [place] % (Auto) 7.1 (2-11) % Eos % (Auto) 3.3 (0-4) % Baso % (Auto) 0.7 (0-2) % Lymph # (Auto) 2.5 (1.2-4.9) X10*3/uL [place] # (Auto) 0.5 (0.1-1.2) X10*3/uL Eos # (Auto) 0.2 (0.0-0.4) X10*3/uL Baso # (Auto) 0.1 (0.0-0.2) X10*3/uL Abs Immat Gran (auto) 0.03 (0.00-0.03) X10*3/uL Absolute Neuts (auto) 3.6 (2.0-8.3) x10*3/uL Absolute Nucleated RBC 0.000 (0.0-0.012) X10*3/uL Nucleated RBC % (auto) 0.0 (0.0-0.2) /100WBC Whole Blood PT (11.1-13.5) sec Whole Blood INR (0.9-1.1) POC Glucose 84 (60-115) mg/dL Troponin I High Sens < 2.7 D (<3.5-17.0) ng/L 10/25/22 Range/Units 15:44 WBC (4.8-10.8) X10*3/uL RBC (4.20-5.50) X10*6/uL Hgb (12.0-16.0) g/dl Hct (37.0-47.0) % MCV (80.0-98.0) fL MCH (27.0-33.0) pg MCHC (31.0-35.0) g/dl RDW (11.0-16.0) % Plt Count (160-400) X10*3/uL MPV (9.4-12.3) fL Immature Gran % (Auto) (0.0-0.4) % Neut % (Auto) (45-73) % Lymph % (Auto) (20-40) % [place] % (Auto) (2-11) % Eos % (Auto) (0-4) % Baso % (Auto) (0-2) % Lymph # (Auto) (1.2-4.9) X10*3/uL [place] # (Auto) (0.1-1.2) X10*3/uL Eos # (Auto) (0.0-0.4) X10*3/uL Baso # (Auto) (0.0-0.2) X10*3/uL Abs Immat Gran (auto) (0.00-0.03) X10*3/uL Absolute Neuts (auto) (2.0-8.3) x10*3/uL Absolute Nucleated RBC (0.0-0.012) X10*3/uL Nucleated RBC % (auto) (0.0-0.2) /100WBC Whole Blood PT 13.2 (11.1-13.5) sec Whole Blood INR 1.1 (0.9-1.1) POC Glucose (60-115) mg/dL Troponin I High Sens (<3.5-17.0) ng/L Independent Interpretation I performed an independent interpretation of an: EKG Interpretation: My interpretation patient's EKG showed a sinus pattern heart rate is 70 AL QRS QT within normal limits is no acute ST segment elevation noted. Radiology Impression Discussion of test interpretation with radiology: I discussed test interpretation with the radiologist and I have reviewed the radiologist's reading. Radiologist Impression: Patient's CT scan of the head was grossly negative. CTA showed no large vessel occlusion causing patient's symptoms. I discussed with the radiologist and reviewed the images myself. Independent Historian Clinical information obtained from an independent historian. History obtained from or confirmed by: EMS Additional history was obtained from EMS External Record Review External record reviewed: Inpatient record Chronic Conditions Patient?s care impacted by: Diabetes and Hypertension history of CVA NIH Stroke Scale Internal: Initial- Upon Arrival Time: 14:48 Level of Consciousness: Alert Level of Consciousness Questions: Answers both questions correctly Level of Consciousness Commands: Performs both tasks correctly Best Gaze: Normal Visual: No visual loss Facial Palsy: Partial paralysis Motor Arm (Right): Drift Motor Arm (Left): No drift Motor Leg (Right): No drift Motor Leg (Left): No drift Limb Ataxia: Absent Sensory: Normal Best Language: Mild to moderate aphasia Dysarthia: Mild to moderate dysarthria Extinction and Inattention: No abnormality Score: 5 Critical Care Time Critical Care Time Critical Care Time: Yes Total Critical Care Time: 40 Attestation: I have personally provided 40 minutes of critical care time exclusive of time spent on separately billable procedures. Time includes review of lab data, radiology results, discussion with consultants, and monitoring for potential decompensation. Interventions were performed as documented above Discharge Plan Discharge Clinical Impression: Acute CVA (cerebrovascular accident) Patient Disposition: Admitted As Inpatient Prescriptions: No Action (DME) Transport wheelchair See Rx Instructions .Route .MEDSUPPLY Qty: 1 0RF Rx Instructions: As directed multivitamin Tablet 1 tab PO DAILY 90 Days Qty: 90 3RF (DME) lancets [FreeStyle Lancets] 28 gauge misc See Rx Instructions .ROUTE .MEDSUPPLY Qty: 100 3RF Rx Instructions: As directed check the blood sugar once a day cholecalciferol (vitamin D3) 50 mcg (2,000 unit) capsule 50 mcg PO DAILY 30 Days Qty: 30 11RF aspirin 81 mg tablet,delayed release (DR/EC) 81 mg PO DAILY Qty: 90 3RF (DME) adult diapers size small petite See Rx Instructions .Route .MEDSUPPLY Qty: 90 12RF Rx Instructions: As directed (DME) Adult pull ups small package See Rx Instructions .Route .MEDSUPPLY Qty: 90 11RF Rx Instructions: 8 Per day (PRN), 11 refills for 12 months. sertraline 100 mg tablet 200 mg PO DAILY 30 Days Qty: 60 2RF risperidone 0.5 mg tablet 1 mg PO BEDTIME Qty: 60 1RF ursodiol 250 mg tablet 250 mg PO TID 30 Days Qty: 90 2RF sennosides [senna] 8.6 mg tablet 17.2 mg PO BEDTIME polyethylene glycol 3350 [Purelax] 17 gram powder in packet 17 g PO DAILY PRN (Reason: constipation) loratadine 10 mg tablet 10 mg PO BEDTIME simethicone 80 mg tablet,chewable 80 mg PO TID atorvastatin 40 mg tablet 40 mg PO BEDTIME (DME) pen needle, diabetic [Comfort EZ Pen Nesbit] 31 gauge x 3/16 needle See Rx Instructions .Route Qty: 100 3RF Rx Instructions: As directed (DME) MOUTH GUARD See Rx Instructions .Route .MEDSUPPLY Qty: 1 0RF Rx Instructions: As directed (DME) Walker with seat and wheels See Rx Instructions .Route .MEDSUPPLY Qty: 1 0RF Rx Instructions: As directed miconazole nitrate [Zeasorb AF] 2 % powder 1 appl topical BID Qty: 85 0RF metformin 500 mg tablet 500 mg PO BIDWM lisinopril 10 mg tablet 10 mg PO BID albuterol sulfate 90 mcg/actuation HFA aerosol inhaler 1 inh inhalation QID PRN (Reason: Shortness Of Breath Or Wheezing) (DME) FreeStyle Lite Strips Strip See Rx Instructions .ROUTE .MEDSUPPLY Qty: 100 11RF Rx Instructions: As directed 3 x/day
[2022-10-25 14:52] VITALS: BP 150/60; PULSE 70; O2SAT 97
[2022-10-25 15:11] VITALS: BMI 20.2
[2022-10-25] MEDS: iohexoL 350 MG/ML 100 ML INFUS..BTL IV (15:17)
[2022-10-25 15:18] LABS: MANUAL DIFF FLAG NO
[2022-10-25 15:25] LABS: Basophils Absolute Auto 0.1 X10*3/uL (0.0-0.2); Basophils Percent Auto 0.7 % (0-2); Eosinophils Absolute Auto 0.2 X10*3/uL (0.0-0.4); Eosinophils Percent Auto 3.3 % (0-4); Hematocrit 39.1 % (37.0-47.0); Imm Gran Abs Auto 0.03 X10*3/uL (0.00-0.03); Imm Gran Pct Auto 0.4 % (0.0-0.4); Lymphocytes Absolute Auto 2.5 X10*3/uL (1.2-4.9); Lymphocytes Percent Auto 35.8 % (20-40); Mean Corpuscular HGB Conc 30.7 g/dl (31.0-35.0); Mean Corpuscular Hemoglobin 25.1 pg (27.0-33.0); Mean Corpuscular Volume 81.6 fL (80.0-98.0); Mean Platelet Volume 12.7 fL (9.4-12.3); Monocytes Absolute Auto 0.5 X10*3/uL (0.1-1.2); Monocytes Percent Auto 7.1 % (2-11); Neutrophils Absolute Auto 3.6 x10*3/uL (2.0-8.3); Neutrophils Percent Auto 52.7 % (45-73); Platelet Count 262 X10*3/uL (160-400); Red Blood Count 4.79 X10*6/uL (4.20-5.50); Red Cell Distribution Width 18.5 % (11.0-16.0); White Blood Count 6.9 X10*3/uL (4.8-10.8)
[2022-10-25 15:29] VITALS: BMI 21.4
[2022-10-25 15:33] VITALS: BP 189/75; PULSE 72; RESP 20; TEMP 36.5; O2SAT 97
--- NOTE | 2022-10-25 15:40 | PC.NURSE ---
pt alert, oriented to person and place. unsure of time. right sided facial droop noted, weakness in right hand grasp noted. lower extremity strength equal. pt responds to verbal stimuli, and can answer questions and follow commands. Pt hypertensive, vitals otherwise stable.
[2022-10-25 15:49] LABS: Troponin-I High Sensitivity < 2.7 ng/L (<3.5-17.0)
[2022-10-25 15:49] LABS: Prothrombin Time Whole Bld POC 13.2 sec (11.1-13.5); ~PT, ~INR - Anti Coag Clinic 1.1 (0.9-1.1)
[2022-10-25 15:51] LABS: Glucose, Whole Blood 84 mg/dL (60-115)
[2022-10-25 16:33] LABS: COVID-19 Test Negative (Negative); IDNOW Serial# 9DB6401D
--- NOTE | 2022-10-25 16:46 | PHA.MEDREC ---
Pharmacy Consult ? Medication Reconciliation Pharmacy has completed the medication reconciliation. Spoke to daughter Maddie [phone] to confirm med list per patient request. She confirmed list which mostly matched claim history. She states patient only takes metformin and lisinopril once daily even though claim history states bid for both.
--- NOTE | 2022-10-25 17:05 | P.HPHOSP_ITS ---
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 Last known well time was around 09:00 o'clock last night when she went to bed. Symptoms are still present in the ED. on arrival, patient hypertensive to 189/75, vital signs otherwise normal. Hematology studies unremarkable. Chemistries CXR negative. Head CT without any acute intracranial pathology. Head/neck CTA without any LVO but showing moderate left supraclinoid and mild left supraclinoid ICA stenosis and moderate to severe right cavernous in supraclinoid ICA stenosis. There is also a 2 mm inferiorly projecting vascular protrusion arising from the terminal segment of the left supraclinoid ICA possibly reflecting infundibular origin versus aneurysm. There is also moderate right vertebral artery origin stenosis and focal ossific plaque moderately narrowing the right vertebral artery at the dural insertion. Also mild undulating luminal irregularity of the distal cervical internal carotid arteries. Pt to be admitted for suspect CVA. Outside of window for tpa. Review of Systems Review of Systems: General: No fevers, malaise, unintentional weight loss HEENT: No blurred vision, diplopia. No sore throat, nasal congestion, rhinorrhea, sinus pain, ear pain Cardiovascular: No chest pain, palpitations, or leg edema Respiratory: No shortness of breath, wheezing, cough GI: No abdominal pain, nausea, vomiting, diarrhea, constipation, melena, hemat ochezia : No dysuria, hematuria, increased urinary frequency, decreased urinary output MSK: No myalgia, back pain Neuro: No headaches, paresthesias. +right sided weakness, +right facial droop Skin: No rashes or lesions [facility] Medical History BOB positive Asthma Cervical osteoarthritis CVA (cerebral vascular accident) Diabetes type 2, uncontrolled Diabetic polyneuropathy associated with type 2 diabetes mellitus Diabetic retinopathy associated with type 2 diabetes mellitus Dyslipidemia Fatty liver disease, nonalcoholic GERD (gastroesophageal reflux disease) History of CVA (cerebrovascular accident) History of sleep apnea History of umbilical hernia HTN (hypertension) Hypertension Hypertension Hypoglycemia after GI (gastrointestinal) surgery Osteoarthritis of right glenohumeral joint Postural hypotension Primary biliary cholangitis Shoulder pain, right Sjogrens syndrome Subclinical hypothyroidism Family History Father [place] (myocardial infarction) Diabetes mellitus Mother Diabetes mellitus CVA (cerebral vascular accident) Maternal Grandmother Stomach cancer Sister Hemorrhagic cerebrovascular accident (CVA) Surgical History History of carpal tunnel release History of esophagogastroduodenoscopy (EGD) History of laparoscopic appendectomy History of partial hysterectomy Hx of section Hx of colonoscopy Hx of dilation and curettage Hx of gastric bypass Hx of tonsillectomy Social History Household Members: Spouse Housing: Apartment Are you a primary care connector to a significant other at home: No Do you presently have visiting nurse or other home services: Yes Alcohol intake: never Patient Tobacco Use Status: Never used Tobacco e-Cigarette/Vaping Use: Never Used Second Hand Smoke Exposure: No Advance Directives: No Advance Directives Information Provided: No Advance Directives Date on File: 07/10/99 service: No Current occupational status: retired and disabled Cognitive needs: Yes (wheelchait) Hearing needs: No Vision needs: No Meds Allergies Allergy/AdvReac Type Severity Reaction Status Date / Time Latex, Natural Rubber Allergy Intermediate Rash Verified 10/17/22 11:32 Sulfa (Sulfonamide AdvReac Intermediate Stomach Verified 10/17/22 11:32 Antibiotics) Upset [SULFA (SULFONAMIDE ANTIBIOTICS)] Morphine Sulfate AdvReac Intermediate Abdominal Uncoded 09/05/22 22:27 Pain Active Medications: Current Medications Acetaminophen (Acetaminophen 325 Mg Tablet) 650 mg PO Q6H PRN PRN Reason: Pain, Mild (Pain Scale 1-3) Aspirin (Aspirin Enteric Coated 81 Mg Tablet.Dr) 81 mg PO DAILY SHARON Docusate Sodium (Docusate Sodium 100 Mg Capsule) 100 mg PO DAILY PRN PRN Reason: Constipation Ondansetron HCl (Ondansetron Hcl 4 Mg/2 Ml Vial) 4 mg IVPUSH Q8H PRN PRN Reason: Nausea and Vomiting Pharmacy Consult (Consult Rx Perform Med Rec) 1 each MISCELLANE ONCE PRN PRN Reason: Consult order Sodium Chloride (0.9 % Sodium Chloride Flush 3 Ml Syringe) 3 [facility] Medications Medication Instructions Recorded Confirmed Last Taken Type albuterol sulfate 90 mcg/actuation 1 inh inhalation QID PRN Shortness 04/28/20 10/25/22 Unknown History aerosol inhaler Of Breath Or Wheezing lisinopril 10 mg tablet 10 mg PO DAILY 10/17/22 10/25/22 10/25/22 History metformin 500 mg tablet 500 mg PO DAILY 10/17/22 10/25/22 10/25/22 History atorvastatin 40 mg tablet 40 mg PO BEDTIME 10/25/22 10/25/22 10/24/22 History loratadine 10 mg tablet 10 mg PO BEDTIME 10/25/22 10/25/22 10/24/22 History polyethylene glycol 3350 17 gram 17 g PO DAILY PRN constipation 10/25/22 10/25/22 10/25/22 History oral powder packet (Purelax) sennosides 8.6 mg tablet (senna) 17.2 mg PO BEDTIME 10/25/22 10/25/22 10/24/22 History Physical Exam Vital Signs and Narrative: Vital Signs: Last Vital Signs Temp 97.7 F 10/25/22 15:33 Pulse 72 10/25/22 15:33 Resp 20 10/25/22 15:33 BP 189/75 H 10/25/22 15:33 Pulse Ox 97 10/25/22 15:33 O2 Del Method Room Air 10/25/22 15:33 BMI result Body Mass Index 21.4 Constitutional - Awake and Alert, No apparent distress Eyes - PERRLA, EOMI, bilateral cataracts Cardiovascular - S1S2, RRR, No edema Respiratory - Normal lung expansion, Normal respiratory effort, No respiratory distress, CTA bilaterally Gastrointestinal - NT / ND; +BS; No rebound or guarding - No CVA tenderness Extremities - no calf tenderness bilaterally, no swelling Skin - Warm/Dry Neurological - Alert & oriented x3, Right sided facial droop, otherwise CN II- XII in tact, 3/5 strength RUE, 5/5 strength LUE, 4/5 strength BLE, 2+ patellar reflexes bilaterally, downgoing babinski, sensation in tact Psychological - Appropriate affect Results Labs 10/25/22 15:11 10/25/22 15:11 Labs: Laboratory Results - last 24 hr 10/25/22 10/25/22 10/25/22 15:11 15:11 15:29 MCV 81.6 MCH 25.1 L MCHC 30.7 L RDW 18.5 H Plt Count 262 MPV 12.7 H Immature Gran % (Auto) 0.4 Neut % (Auto) 52.7 Lymph % (Auto) 35.8 [place] % (Auto) 7.1 Eos % (Auto) 3.3 Baso % (Auto) 0.7 Lymph # (Auto) 2.5 [place] # (Auto) 0.5 Eos # (Auto) 0.2 Baso # (Auto) 0.1 Abs Immat Gran (auto) 0.03 Absolute Neuts (auto) 3.6 Absolute Nucleated RBC 0.000 Nucleated RBC % (auto) 0.0 Whole Blood PT Whole Blood INR POC Glucose 84 Troponin I High Sens < 2.7 D COVID-19 (JAMES) COVID-19 Clin Com 10/25/22 10/25/22 15:44 16:09 MCV MCH MCHC RDW Plt Count MPV Immature Gran % (Auto) Neut % (Auto) Lymph % (Auto) [place] % (Auto) Eos % (Auto) Baso % (Auto) Lymph # (Auto) [place] # (Auto) Eos # (Auto) Baso # (Auto) Abs Immat Gran (auto) Absolute Neuts (auto) Absolute Nucleated RBC Nucleated RBC % (auto) Whole Blood PT 13.2 Whole Blood INR 1.1 POC Glucose Troponin I High Sens COVID-19 (JAMES) Negative COVID-19 Clin Com See Note Imaging Radiologist's Impressions: Impressions Head CT 10/25/22 14:43 IMPRESSION: No acute intracranial process seen. This critical result was discussed with in ER at 2:50 p.m. on 10/25/2022. It was ascertained that the content and urgency of the report was understood at the time of direct communication. Head/Neck CTA 10/25/22 15:21 IMPRESSION: 1. No proximal large vessel occlusion. 2. Calcified plaque causes moderate left supraclinoid and mild left supraclinoid ICA stenosis with moderate to severe right cavernous and supraclinoid ICA stenosis. 3. 2 mm inferiorly projecting vascular protrusion arising from the terminal segment of the left supraclinoid ICA may reflect infundibular origin versus aneurysm. 4. Moderate right vertebral artery origin stenosis and focal ossific plaque moderately narrowing the right vertebral artery at the dural insertion. 5. Mild undulating luminal irregularity of the distal cervical internal carotid arteries likely reflecting underlying fibromuscular dysplasia. 6. Patchy groundglass attenuation with interlobular septal thickening in the imaged lungs may reflect mild pulmonary edema. Findings were communicated to SanchezAminata on 10/25/2022 at 3:38 PM. Chest X-Ray 10/25/22 16:02 IMPRESSION: No acute pulmonary disease. Assessment and Plan (1) Acute CVA (cerebrovascular accident): Status: Acute Plan 62-year-old female with history of get-gklcske-xacceectl type 2 diabetes, mild intermittent asthma, diabetic polyneuropathy, diabetic poly retinopathy, dyslip idemia, GERD, 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 #Acute CVA -Head CT without acute intracranial pathology, head/neck CTA with significant arterial disease but no LVO -Symptomatic with right-sided weakness, right sided facial droop -ASA 300mg IL, ASA 81 mg daily -nursing bedside swallow evaluation -lipid panel pending -MRI brain -echocardiogram -continue statin -appreciate neurology input -admit to telemetry -keep NPO for now -PT, OT, PEST CONTROL WORKER HELPER evaluations # history of CVA 10/2020 -with sequela of left-sided hemiparesis -continue aspirin statin # vyo-ycfnvbk-lkvwgaxwi type 2 diabetes -POC glucose -NPO for now, advance to diabetic diet pending speech evaluation -Humalog on sliding scale -hold metformin # hypertension -hold antihypertensives at this time this setting of suspected acute CVA # mild intermittent asthma-without acute exacerbation -albuterol p.r.n. # mood disorder -continue home meds DVT prophylaxis-Lovenox Full code Pt requires inpt stay for management of acute CVA Time Spent With Patient Time: Total time managing care of this patient today ____ minutes. Quality Stroke Does the patient have a stroke diagnosis?: No VTE Prior VTE?: No VTE Risk Level:: Medical - moderate - high VTE Device Contraindication: Treatment Not Indicated VTE Drug Contraindication: N/A - Med Ordered
[2022-10-25 17:30] LABS: Appearance Urine Clear; Color Urine Yellow; Glucose Urine UA Negative (Negative); Leukocyte Esterase Urine Trace (Negative); Nitrite Urine Negative (Negative); PH 5.5 (5.0-9.0); Specific Gravity - Urine >= 1.030 (1.005-1.025); UMIC TRIGGER UACC YES; Urine Blood Negative (Negative); Urine Ketones Negative (Negative); Urine Protein Negative (Neg-Trace)
[2022-10-25 17:50] LABS: Partial Thromboplastin Time 35.7 SEC (26.0-36.4)
[2022-10-25 17:51] LABS: Stroke Lab Use COMPLETE
--- NOTE | 2022-10-25 17:51 | PC.NURSE ---
pt swallows water without cough or SOB, but pt has delayed swallow with effort. failed swallow screen
[2022-10-25] MEDS: Aspirin 300 MG SUPP.RECT PR (17:53)
[2022-10-25 17:58] LABS: Alanine Aminotransferase 36 U/L (0-31); Albumin Level 3.5 g/dL (3.5-5.0); Alkaline Phosphatase 269 U/L (39-117); Anion Gap 12 (12-20); Aspartate Amino Transferase 38 U/L (5-31); Bilirubin Direct < 0.2 mg/dL (0.0-0.5); Bilirubin Total 0.2 mg/dL (0.0-1.0); Blood Urea Nitrogen 24 mg/dL (9-16); Carbon Dioxide 22 mmol/L (22-29); Chloride 110 mmol/L (96-108); Cholesterol 144 mg/dL; Creatinine Clr Calc Pharmacy 56.1; Estimated Glomerular Filt Rate > 60; Glucose Random 66 mg/dL (60-115); HDL Cholesterol 50 mg/dL; LDL Cholesterol Calculated 74 mg/dl; Magnesium 1.6 mg/dL (1.6-2.6); Potassium 5.2 mmol/L (3.3-5.1); Sodium 139 mmol/L (135-145); Total Protein 7.1 g/dL (6.5-8.0); Triglycerides 102 mg/dL
--- NOTE | 2022-10-25 18:25 | PC.NURSE ---
report given to floor RN
[2022-10-25 18:29] LABS: Bacteria Urine None Seen (None Seen); Hyaline Casts Urine 0-2 /LPF (0-2); RBC Urine 0-2 /HPF (0-2); Squamous Epithelial Cell Urine 0-2 /HPF (0-2); WBC Urine 0-5 /HPF (0-5)
[2022-10-25 18:46] VITALS: BP 160/71; PULSE 70; RESP 18; TEMP 37.1; O2SAT 98
[2022-10-25 19:27] LABS: Glucose, Whole Blood 60 mg/dL (60-115)
[2022-10-25] MEDS: Dextrose 10 % 250 ML 750 ML IV (19:34)
[2022-10-25 19:35] VITALS: BMI 22.2
[2022-10-25 20:08] LABS: Glucose, Whole Blood 174 mg/dL (60-115)
[2022-10-25 23:32] VITALS: BP 112/49; PULSE 60; RESP 18; TEMP 36.6; O2SAT 97
[2022-10-26] MEDS: Dextrose 5 % and Lactated Ring 1,000 ML 80 ML IVCONT (00:16)
[2022-10-26] MEDS: 0.9 % Sodium Chloride Flush 3 ML SYRINGE IVFLUSH ×4 (00:16→23:52)
[2022-10-26 03:18] VITALS: BP 139/66; PULSE 57; RESP 20; TEMP 36.3; O2SAT 96
[2022-10-26 07:05] LABS: MANUAL DIFF FLAG NO
[2022-10-26 07:14] LABS: Basophils Percent Auto 0.8 % (0-2); Eosinophils Absolute Auto 0.2 X10*3/uL (0.0-0.4); Eosinophils Percent Auto 3.8 % (0-4); Hematocrit 36.9 % (37.0-47.0); Hemoglobin 11.4 g/dl (12.0-16.0); Imm Gran Abs Auto 0.03 X10*3/uL (0.00-0.03); Imm Gran Pct Auto 0.6 % (0.0-0.4); Lymphocytes Percent Auto 40.5 % (20-40); Mean Corpuscular HGB Conc 30.9 g/dl (31.0-35.0); Mean Corpuscular Hemoglobin 24.5 pg (27.0-33.0); Mean Corpuscular Volume 79.4 fL (80.0-98.0); Monocytes Absolute Auto 0.4 X10*3/uL (0.1-1.2); Monocytes Percent Auto 8.6 % (2-11); Neutrophils Absolute Auto 2.3 x10*3/uL (2.0-8.3); Neutrophils Percent Auto 45.7 % (45-73); Platelet Count 236 X10*3/uL (160-400); Red Blood Count 4.65 X10*6/uL (4.20-5.50); Red Cell Distribution Width 18.2 % (11.0-16.0)
[2022-10-26 07:17] VITALS: BP 176/72; PULSE 58; RESP 18; TEMP 36.6; O2SAT 97
[2022-10-26 07:19] LABS: Glucose, Whole Blood 128 mg/dL (60-115)
[2022-10-26 07:23] LABS: Anion Gap 12 (12-20); Blood Urea Nitrogen 19 mg/dL (9-16); Carbon Dioxide 26 mmol/L (22-29); Chloride 107 mmol/L (96-108); Estimated Glomerular Filt Rate > 60; Glucose Random 121 mg/dL (60-115); Potassium 4.4 mmol/L (3.3-5.1); Sodium 141 mmol/L (135-145)
--- NOTE | 2022-10-26 08:58 | MHC.CM.PN ---
CM met with Patient at bedside with the assist of Urdu translation. Patient lives with her in an apartment and she uses a walker to assist with mobility. Patient has 2 trade specialist and home/resume trade specialist VS STR pending PT eval is the tentative plan. CM has initiated and will follow for dc planning. Patient was at [facility] last month. Patient has received Covid vax x4 and her PCP is Dr. Ludy Alonso.Patient's Daughter/Maddie is the HCP.
--- NOTE | 2022-10-26 10:27 | MHC.CM.PN ---
OT is recommending Acute Rehab;CM will continue to follow.
--- NOTE | 2022-10-26 11:05 | MHC.SL.SWA ---
Speech Pathologist Impression: Oropharyngeal dysphagia, risk of aspiration Risk of Aspiration Due to: Neurological Condition, hx stroke Dysphasia Diet Status: Upgrade to NDD2/thin w/ precautions Liquid Consistency and Strategies for Safe Swallow: Liquid Intake Recommendation: Thin Liquid Intake Strategies: Small Sips No Straws Solid Food Consistency: Dietary Recommendations: Grnd/Mech Altered (NDD2) Additional Modifications to Solid Foods: Recommend upgrade from NPO to GROUND/MECH ALTERED (NDD2) solids, THIN liquids (NO STRAW), pills CRUSHED in PUREE. Pt w/ R-side weakness, requires assistance preparing tray, opening/handing containers. Recommend total 1:1 supervision, provide assistance as needed throughout meals. Ensure aspiration precautions. Recommendations written on whiteboard in pt's room, notified MD, RN, RD. FEDERAL AID COORDINATOR will continue to follow. Oral Medication Intake: Crushed with Puree Please contact the pharmacy regarding appropriate crushable or liquid drug formulations that are available whenever modified delivery is recommended. Compensatory Strategies and Precautions to be Taken for Safe Swallow: Sitting Upright (90 deg) Double Swallow No Straw Small Bites and Sips Rate of Ingestion Change Avoid Specific Foods Supervision While Eating and Drinking for Safe Swallow: Total Supervision (1:1) Foods to Avoid: Hard, tough to chew solids; mixed textures; sticky foods Swallowing Recommended Treatments: Compens. Strategy Educat. Recommendation for Speech: Inpatient Speech Therapy Comment: Pt w/ hx chronic dysphagia Bearing Grinder Clinican/Clinical Fellow: No Supervisory Statement: I have reviewed and agree with the student/clinical fellow's documentation: N/A Speech Language Pathologist: Norma Velazquez M.A., CCC-FEDERAL AID COORDINATOR
[2022-10-26 11:47] VITALS: BP 179/74; PULSE 67; RESP 18; TEMP 36.4; O2SAT 94
[2022-10-26 11:47] LABS: Glucose, Whole Blood 132 mg/dL (60-115)
--- NOTE | 2022-10-26 12:28 | P.PNIM_ITS ---
Subjective Subjective Date of Service: 10/26/22 Interval History: Seen in follow-up for acute CVA interval history: Right-sided weakness persists along with right-sided facial droop and slight slurring of speech. Feeling down. Otherwise no complaints Review of Systems Review of Systems: Yes all other systems are reviewed and are negative Physical Exam Vital Signs: Vital Signs: Last Vital Signs Temp 97.5 F 10/26/22 11:47 Pulse 67 10/26/22 11:47 Resp 18 10/26/22 11:47 BP 179/74 H 10/26/22 11:47 Pulse Ox 94 10/26/22 11:47 O2 Del Method Room Air 10/26/22 11:47 BMI result Body Mass Index 22.2 Constitutional - Awake and Alert, No apparent distress Eyes - PERRLA, EOMI, bilateral cataracts Cardiovascular - S1S2, RRR, No edema Respiratory - Normal lung expansion, Normal respiratory effort, No respiratory distress, CTA bilaterally Extremities - no calf tenderness bilaterally, no swelling Skin - Warm/Dry Neurological - Alert & oriented x3, Right sided facial droop, otherwise CN II- XII in tact, 3/5 strength RUE, 5/5 strength LUE, 4/5 strength BLE Psychological - Appropriate affect Objective Data Active Medications Acetaminophen (Acetaminophen 325 Mg Tablet) 650 mg PO Q6H PRN PRN Reason: Pain, Mild (Pain Scale 1-3) Albuterol Sulfate (Albuterol Sulfate 90 Mcg 8 Gm Inhaler) 1 puff INHALE QID PRN PRN Reason: Shortness Of Breath Or Wheezing Aspirin (Aspirin Enteric Coated 81 Mg Tablet.) 81 mg PO DAILY [facility] Last Admin: 10/26/22 08:51 Dose: Not Given Documented By: GLYNN Non-Admin Reason: NPO Atorvastatin Calcium (Atorvastatin Calcium 40 Mg Tablet) 40 mg PO BEDTIME [facility] Last Admin: 10/25/22 20:02 Dose: Not Given Documented By: ALIA Non-Admin Reason: NPO Docusate Sodium (Docusate Sodium 100 Mg Capsule) 100 mg PO DAILY PRN PRN Reason: Constipation Glucose (Glucose Gel 15 Gm Gel..Gram.) 15 gm PO Q15M PRN; Protocol PRN Reason: per Hypoglycemia Standing Ord. Dextrose (D10) 250 mls @ 750 mls/hr IV Q15M PRN; Protocol PRN Reason: per Hypoglycemia Standing Ord. Last Infusion: 10/25/22 20:03 Dose: 0 mls/hr Documented By: ALIA Insulin Human Lispro (Insulin Lispro 100 Unit/Ml 3 Ml Vial) 0 unit SUBCUT QIDACHS [facility]; Protocol Last Admin: 10/26/22 11:57 Dose: Not Given Documented By: GLYNN Non-Admin Reason: No Insulin Coverage Loratadine (Loratadine 10 Mg Tablet) 10 mg PO BEDTIME [facility] Last Admin: 10/25/22 20:02 Dose: Not Given Documented By: ALIA Non-Admin Reason: NPO Multivitamins/Vitamin C (Multivitamin Tablet) 1 tab PO DAILY [facility] Last Admin: 10/26/22 08:51 Dose: Not Given Documented By: GLYNN Non-Admin Reason: NPO Ondansetron HCl (Ondansetron Hcl 4 Mg/2 Ml Vial) 4 mg IVPUSH Q8H PRN PRN Reason: Nausea and Vomiting Pharmacy Consult (Consult Rx Perform Med Rec) 1 each MISCELLANE ONCE PRN PRN Reason: Consult order Polyethylene Glycol (Polyethylene Glycol 3350 17 Gm Powd.Pack) 17 gm PO DAILY PRN PRN Reason: constipation Risperidone (Risperidone 1 Mg Tablet) 1 mg PO BEDTIME [facility] Last Admin: 10/25/22 20:02 Dose: Not Given Documented By: ALIA Non-Admin Reason: NPO Senna (Sennosides 8.6 Mg Tablet) 17.2 mg PO BEDTIME [facility] Last Admin: 10/25/22 20:02 Dose: Not Given Documented By: ALIA Non-Admin Reason: NPO Sertraline HCl (Sertraline Hcl 100 Mg Tablet) 200 mg PO DAILY [facility] Last Admin: 10/26/22 08:51 Dose: Not Given Documented By: GLYNN Non-Admin Reason: NPO Sodium Chloride (0.9 % Sodium Chloride Flush 3 Ml Syringe) 3 ml IVFLUSH QSHIFT [facility] Last Admin: 10/26/22 08:50 Dose: 3 ml Documented By: GLYNN Ursodiol (Ursodiol 300 Mg Capsule) 300 mg PO BID [facility] Last Admin: 10/26/22 08:57 Dose: Not Given Documented By: GLYNN Non-Admin Reason: NPO Vitamin D (Cholecalciferol (Vitamin D3) 25 Mcg Tablet) 50 mcg PO DAILY [facility] Last Admin: 10/26/22 08:51 Dose: Not Given Documented By: GLYNN Non-Admin Reason: NPO Labs 10/26/22 06:44 10/26/22 06:44 Labs: Laboratory Results - last 24 hr 10/25/22 10/25/22 10/25/22 15:11 15:11 15:29 MCV 81.6 MCH 25.1 L MCHC 30.7 L RDW 18.5 H Plt Count 262 MPV 12.7 H Immature Gran % (Auto) 0.4 Neut % (Auto) 52.7 Lymph % (Auto) 35.8 [place] % (Auto) 7.1 Eos % (Auto) 3.3 Baso % (Auto) 0.7 Lymph # (Auto) 2.5 [place] # (Auto) 0.5 Eos # (Auto) 0.2 Baso # (Auto) 0.1 Abs Immat Gran (auto) 0.03 Absolute Neuts (auto) 3.6 Absolute Nucleated RBC 0.000 Nucleated RBC % (auto) 0.0 PT Whole Blood PT INR Whole Blood INR APTT Anion Gap Estim Creat Clear Calc Estimated GFR POC Glucose 84 Random Glucose Calcium Phosphorus Magnesium Total Bilirubin Direct Bilirubin AST ALT Alkaline Phosphatase Total Creatine Kinase Troponin I High Sens < 2.7 D Total Protein Albumin Triglycerides Cholesterol LDL Cholesterol, Calc HDL Cholesterol Urine Color Urine Appearance Urine pH Ur Specific [place] Urine Protein Urine Glucose (UA) Urine Ketones Urine Blood Urine Nitrite Ur Leukocyte Esterase Urine RBC Urine WBC Ur Squamous Epith Cells Urine Bacteria Hyaline Casts COVID-19 (JAMES) COVID-19 Clin Com 10/25/22 10/25/22 10/25/22 15:44 16:09 17:12 MCV MCH MCHC RDW Plt Count MPV Immature Gran % (Auto) Neut % (Auto) Lymph % (Auto) [place] % (Auto) Eos % (Auto) Baso % (Auto) Lymph # (Auto) [place] # (Auto) Eos # (Auto) Baso # (Auto) Abs Immat Gran (auto) Absolute Neuts (auto) Absolute Nucleated RBC Nucleated RBC % (auto) PT Whole Blood PT 13.2 INR Whole Blood INR 1.1 APTT Anion Gap Estim Creat Clear Calc Estimated GFR POC Glucose Random Glucose Calcium Phosphorus Magnesium Total Bilirubin Direct Bilirubin AST ALT Alkaline Phosphatase Total Creatine Kinase Troponin I High Sens Total Protein Albumin Triglycerides Cholesterol LDL Cholesterol, Calc HDL Cholesterol Urine Color Yellow Urine Appearance Clear Urine pH 5.5 Ur Specific [place] >= 1.030 H Urine Protein Negative Urine Glucose (UA) Negative Urine Ketones Negative Urine Blood Negative Urine Nitrite Negative Ur Leukocyte Esterase Trace H Urine RBC 0-2 Urine WBC 0-5 Ur Squamous Epith Cells 0-2 Urine Bacteria None Seen Hyaline Casts 0-2 COVID-19 (JAMES) Negative COVID-19 Clin Com See Note 10/25/22 10/25/22 10/25/22 17:17 17:17 19:16 MCV MCH MCHC RDW Plt Count MPV Immature Gran % (Auto) Neut % (Auto) Lymph % (Auto) [place] % (Auto) Eos % (Auto) Baso % (Auto) Lymph # (Auto) [place] # (Auto) Eos # (Auto) Baso # (Auto) Abs Immat Gran (auto) Absolute Neuts (auto) Absolute Nucleated RBC Nucleated RBC % (auto) PT 12.0 Whole Blood PT INR 1.0 Whole Blood INR APTT 35.7 Anion Gap 12 Estim Creat Clear Calc 56.1 Estimated GFR > 60 POC Glucose 60 Random Glucose 66 Calcium 9.0 Phosphorus 4.0 Magnesium 1.6 Total Bilirubin 0.2 Direct Bilirubin < 0.2 AST 38 H ALT 36 H Alkaline Phosphatase 269 H Total Creatine Kinase 51 Troponin I High Sens Total Protein 7.1 Albumin 3.5 Triglycerides 102 Cholesterol 144 LDL Cholesterol, Calc 74 HDL Cholesterol 50 Urine Color Urine Appearance Urine pH Ur Specific [place] Urine Protein Urine Glucose (UA) Urine Ketones Urine Blood Urine Nitrite Ur Leukocyte Esterase Urine RBC Urine WBC Ur Squamous Epith Cells Urine Bacteria Hyaline Casts COVID-19 (JAMES) COVID-19 Clin Com 10/25/22 10/26/22 10/26/22 20:04 06:44 06:44 MCV 79.4 L MCH 24.5 L MCHC 30.9 L RDW 18.2 H Plt Count 236 MPV Not Reportable Immature Gran % (Auto) 0.6 H Neut % (Auto) 45.7 Lymph % (Auto) 40.5 H [place] % (Auto) 8.6 Eos % (Auto) 3.8 Baso % (Auto) 0.8 Lymph # (Auto) 2.0 [place] # (Auto) 0.4 Eos # (Auto) 0.2 Baso # (Auto) 0.0 Abs Immat Gran (auto) 0.03 Absolute Neuts (auto) 2.3 Absolute Nucleated RBC 0.000 Nucleated RBC % (auto) 0.0 PT Whole Blood PT INR Whole Blood INR APTT Anion Gap 12 Estim Creat Clear Calc 53.0 Estimated GFR > 60 POC Glucose 174 H Random Glucose 121 H Calcium 9.0 Phosphorus Magnesium Total Bilirubin Direct Bilirubin AST ALT Alkaline Phosphatase Total Creatine Kinase Troponin I High Sens Total Protein Albumin Triglycerides Cholesterol LDL Cholesterol, Calc HDL Cholesterol Urine Color Urine Appearance Urine pH Ur Specific [place] Urine Protein Urine Glucose (UA) Urine Ketones Urine Blood Urine Nitrite Ur Leukocyte Esterase Urine RBC Urine WBC Ur Squamous Epith Cells Urine Bacteria Hyaline Casts COVID-19 (JAMES) COVID-19 Clin Com 10/26/22 10/26/22 07:16 11:44 MCV MCH MCHC RDW Plt Count MPV Immature Gran % (Auto) Neut % (Auto) Lymph % (Auto) [place] % (Auto) Eos % (Auto) Baso % (Auto) Lymph # (Auto) [place] # (Auto) Eos # (Auto) Baso # (Auto) Abs Immat Gran (auto) Absolute Neuts (auto) Absolute Nucleated RBC Nucleated RBC % (auto) PT Whole Blood PT INR Whole Blood INR APTT Anion Gap Estim Creat Clear Calc Estimated GFR POC Glucose 128 H 132 H Random Glucose Calcium Phosphorus Magnesium Total Bilirubin Direct Bilirubin AST ALT Alkaline Phosphatase Total Creatine Kinase Troponin I High Sens Total Protein Albumin Triglycerides Cholesterol LDL Cholesterol, Calc HDL Cholesterol Urine Color Urine Appearance Urine pH Ur Specific [place] Urine Protein Urine Glucose (UA) Urine Ketones Urine Blood Urine Nitrite Ur Leukocyte Esterase Urine RBC Urine WBC Ur Squamous Epith Cells Urine Bacteria Hyaline Casts COVID-19 (JAMES) COVID-19 Clin Com Assessment and Plan (1) Acute CVA (cerebrovascular accident): Status: Acute Plan 62-year-old female with history of [id number] type 2 diabetes, mild intermittent asthma, diabetic polyneuropathy, diabetic poly retinopathy, dyslipidemia, GERD, 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 #Acute CVA -Head CT without acute intracranial pathology, head/neck CTA with significant arterial disease but no LVO -Symptomatic with right-sided weakness, right sided facial droop -ASA 81 mg daily. Add plavix for dual antiplatelet therapy per Neurology -Failed nursing bedside swallow eval. Seen by CATH LAB TECH recommending ground/mech, thin liquids, crushed meds in puree, 1:1 feeds -lipids at goal, continue statin -echo 09/29. Repeat if indicated per neuro -appreciate neurology input -PT, OT, CATH LAB TECH evaluations # history of CVA 10/2020 -with sequela of left-sided hemiparesis -continue aspirin statin # [id number] type 2 diabetes -POC glucose -NPO for now, advance to diabetic diet pending speech evaluation -Humalog on sliding scale -hold metformin # hypertension -hold antihypertensives at this time this setting of suspected acute CVA # mild intermittent asthma-without acute exacerbation -albuterol p.r.n. # mood disorder -continue home meds DVT prophylaxis-Lovenox Full code Pt requires ongoing inpt stay for management of acute CVA, PT resommending STR Placement Time Spent With Patient Time: Total time managing care of this patient today ____ minutes. Quality Stroke Does the patient have a stroke diagnosis?: No VTE Prior VTE?: No VTE Risk Level:: Medical - moderate - high VTE Device Contraindication: Treatment Not Indicated VTE Drug Contraindication: N/A - Med Ordered
[2022-10-26] MEDS: Multivitamin TABLET 1 TAB PO (12:45)
[2022-10-26] MEDS: Cholecalciferol (Vitamin D3) 25 MCG TABLET 50 MCG PO (12:45)
[2022-10-26] MEDS: Aspirin 81 MG TAB.CHEW PO (12:45)
[2022-10-26] MEDS: UrsodioL 300 MG CAPSULE PO ×2 (12:45→21:08)
[2022-10-26] MEDS: Sertraline HCL 100 MG TABLET 200 MG PO (12:45)
--- NOTE | 2022-10-26 13:16 | MHC.CM.PN ---
CM met with Patient and her Daughter/HCP/Maddie at bedside. Per Patient/family's request, CM has reached out to [facility]/WELLNESS COORDINATOR Department/Alisa @ and was only able to leave a detailed message, requesting that Patient be assessed for additional WELLNESS COORDINATOR services. BERNABE explained that Patient is likely to be dc'd from [facility] to an Acute Re[facility] ([facility]) but the hope is for Patient to be evaluated as close to dc time from the Acute Rehab, for more WELLNESS COORDINATOR hours. BERNABE provided Jt with CM contact information. BERNABE will follow. BERNABE also provided Patient and her Daughter with a list of private pay agencies/options.
--- NOTE | 2022-10-26 13:39 | MHC.CM.PN ---
Per CHLOÉ/Billie, dc is anticipated for tomorrow. Patient has been accepted at her first choice [facility] and [facility]ERNABE has asked [facility] to initiate insurance auth. CM will follow.
--- NOTE | 2022-10-26 14:09 | PM.NEUROCN ---
History of Present Illness Data of Consult Service Date: 10/26/22 Primary Care Provider: MD MAYA Granado Reason for consult: Stroke 62-year-old female with history of gik-mbplupm-cecgbmibh type 2 diabetes, mild intermittent asthma, diabetic polyneuropathy, diabetic poly retinopathy, dyslipidemia, GERD, history of CVA in 10/28 with sequela of left-sided hemiparesis, and hypertension presents to the ED earlier today for evaluation of right-sided weakness and right-sided facial droop that was present upon waking.? She said that she could not walk and was having right-sided weakness. There was no nausea vomiting or seizure-like activity or discomfort Review of Systems Review of Systems: No recent cold or flu-like illness or trauma PMFSH Past Medical History Medical History BOB positive Asthma Cervical osteoarthritis CVA (cerebral vascular accident) Diabetes type 2, uncontrolled Diabetic polyneuropathy associated with type 2 diabetes mellitus Diabetic retinopathy associated with type 2 diabetes mellitus Dyslipidemia Fatty liver disease, nonalcoholic GERD (gastroesophageal reflux disease) History of CVA (cerebrovascular accident) History of sleep apnea History of umbilical hernia HTN (hypertension) Hypertension Hypertension Hypoglycemia after GI (gastrointestinal) surgery Osteoarthritis of right glenohumeral joint Postural hypotension Primary biliary cholangitis Shoulder pain, right Sjogrens syndrome Subclinical hypothyroidism Family History Family History Father [place] (myocardial infarction) Diabetes mellitus Mother Diabetes mellitus CVA (cerebral vascular accident) Maternal Grandmother Stomach cancer Sister Hemorrhagic cerebrovascular accident (CVA) Surgical History Surgical History History of carpal tunnel release History of esophagogastroduodenoscopy (EGD) History of laparoscopic appendectomy History of partial hysterectomy Hx of section Hx of colonoscopy Hx of dilation and curettage Hx of gastric bypass Hx of tonsillectomy Social History Social History Household Members: Spouse Housing: Apartment Are you a primary technical healthcare consultant to a significant other at home: No Do you presently have visiting nurse or other home services: Yes (Pt requires 24 hour care, She has a VNA nurse but no FORM PRESSER yet in the house) Alcohol intake: never Patient Tobacco Use Status: Never used Tobacco Smoked in Last 30 Days: No e-Cigarette/Vaping Use: Never Used Patient Interested in Nicotine Replacement: No Patient Given Instructions on How to Stop Smoking: No Second Hand Smoke Exposure: No Use of substances other than those prescribed or required for medical reasons: No Currently Displaying Signs/Symptoms of Drug Intoxication Withdrawal: No Have you been hit, kicked, punched, or otherwise hurt by someone within the past year? If so, by whom?: No Do you feel safe in your current relationship?: No Is there a partner from a previous relationship who is making you feel unsafe now?: No Advance Directives: No Advance Directives Information Provided: No Advance Directives Date on File: 07/10/99 Do you have thoughts of harming others: None Do you have a plan to hurt others: No Plan Recently lost weight without trying: No Eating poorly because of decreased appetite: No Nutrition Risks: On aspiration precautions Patient : No service: No Current occupational status: disabled Cognitive needs: Yes ([employer]) Hearing needs: No Vision needs: No Meds Allergies Allergy/AdvReac Type Severity Reaction Status Date / Time Latex, Natural Rubber Allergy Intermediate Rash Verified 10/17/22 11:32 Sulfa (Sulfonamide AdvReac Intermediate Stomach Verified 10/17/22 11:32 Antibiotics) Upset [SULFA (SULFONAMIDE ANTIBIOTICS)] Morphine Sulfate AdvReac Intermediate Abdominal Uncoded 09/05/22 22:27 Pain Active Medications: Current Medications Acetaminophen (Acetaminophen 325 Mg Tablet) 650 mg PO Q6H PRN PRN Reason: Pain, Mild (Pain Scale 1-3) Albuterol Sulfate (Albuterol Sulfate 90 Mcg 8 Gm Inhaler) 1 puff INHALE QID PRN PRN Reason: Shortness Of Breath Or Wheezing Aspirin (Aspirin 81 Mg Tab.Chew) 81 mg PO DAILY [facility] Last Admin: 10/26/22 12:45 Dose: 81 mg Atorvastatin Calcium (Atorvastatin Calcium 40 Mg Tablet) 40 mg PO BEDTIME [facility] Last Admin: 10/25/22 20:02 Dose: Not Given Docusate Sodium (Docusate Sodium 100 Mg Capsule) 100 mg PO DAILY PRN PRN Reason: Constipation Glucose (Glucose Gel 15 Gm Gel..Gram.) 15 gm PO Q15M PRN; Protocol PRN Reason: per Hypoglycemia Standing Ord. Dextrose (D10) 250 mls @ 750 mls/hr IV Q15M PRN; Protocol PRN Reason: per Hypoglycemia Standing Ord. Last Infusion: 10/25/22 20:03 Dose: Infused Insulin Human Lispro (Insulin Lispro 100 Unit/Ml 3 Ml Vial) 0 unit SUBCUT QIDACHS [facility]; Protocol Last Admin: 10/26/22 11:57 Dose: Not Given Loratadine (Loratadine 10 Mg Tablet) 10 mg PO BEDTIME [facility] Last Admin: 10/25/22 20:02 Dose: Not Given Multivitamins/Vitamin C (Multivitamin Tablet) 1 tab PO DAILY [facility] Last Admin: 10/26/22 12:45 Dose: 1 tab Ondansetron HCl (Ondansetron Hcl 4 Mg/2 Ml Vial) 4 mg IVPUSH Q8H PRN PRN Reason: Nausea and Vomiting Pharmacy Consult (Consult Rx Perform Med Rec) 1 each MISCELLANE ONCE PRN PRN Reason: Consult order Polyethylene Glycol (Polyethylene Glycol 3350 17 Gm Powd.Pack) 17 gm PO DAILY PRN PRN Reason: constipation Risperidone (Risperidone 1 Mg Tablet) 1 mg PO BEDTIME [facility] Last Admin: 10/25/22 20:02 Dose: Not Given Senna (Sennosides 8.6 Mg Tablet) 17.2 mg PO BEDTIME [facility] Last Admin: 10/25/22 20:02 Dose: Not Given Sertraline HCl (Sertraline Hcl 100 Mg Tablet) 200 mg PO DAILY [facility] Last Admin: 10/26/22 12:45 Dose: 200 mg Sodium Chloride (0.9 % Sodium Chloride Flush 3 Ml Syringe) [facility] Admin: 10/26/22 08:50 Dose: 3 ml Ursodiol (Ursodiol 300 Mg Capsule) 300 mg PO BID [facility] Last Admin: 10/26/22 12:45 Dose: 300 mg Vitamin D (Cholecalciferol (Vitamin D3) 25 Mcg Tablet) 50 mcg PO DAILY [facility] Last Admin: 10/26/22 12:45 Dose: 50 mcg Home Medications Medication Instructions Recorded Confirmed Last Taken Type albuterol sulfate 90 mcg/actuation 1 inh inhalation QID PRN Shortness 04/28/20 10/25/22 Unknown History aerosol inhaler Of Breath Or Wheezing lisinopril 10 mg tablet 10 mg PO DAILY 10/17/22 10/25/22 10/25/22 History metformin 500 mg tablet 500 mg PO DAILY 10/17/22 10/25/22 10/25/22 History atorvastatin 40 mg tablet 40 mg PO BEDTIME 10/25/22 10/25/22 10/24/22 History loratadine 10 mg tablet 10 mg PO BEDTIME 10/25/22 10/25/22 10/24/22 History polyethylene glycol 3350 17 gram 17 g PO DAILY PRN constipation 10/25/22 10/25/22 10/25/22 History oral powder packet (Purelax) sennosides 8.6 mg tablet (senna) 17.2 mg PO BEDTIME 10/25/22 10/25/22 10/24/22 History Physical Exam Vital Signs: Vital Signs: Last Vital Signs Temp 97.5 F 10/26/22 11:47 Pulse 67 10/26/22 11:47 Resp 18 10/26/22 11:47 BP 179/74 H 10/26/22 11:47 Pulse Ox 94 10/26/22 11:47 O2 Del Method Room Air 10/26/22 11:47 BMI result Body Mass Index 22.2 Neuro: Other: Right hemiparesis including face arm or leg. Left plantar is extensor. He is alert and awake with normal spontaneity of speech fluency comprehension and affect. Results Labs 10/26/22 06:44 10/26/22 06:44 Labs: Short CBC 10/25/22 10/26/22 Range/Units 15:11 06:44 WBC 6.9 5.0 (4.8-10.8) X10*3/uL Hgb 12.0 11.4 L (12.0-16.0) g/dl Hct 39.1 36.9 L (37.0-47.0) % Plt Count 262 236 (160-400) X10*3/uL BMP 10/25/22 10/26/22 17:17 06:44 Sodium 139 141 Potassium 5.2 H D 4.4 Chloride 110 H 107 Carbon Dioxide 22 26 BUN 24 H 19 H Creatinine 0.69 0.73 Calcium 9.0 9.0 Cardiac Enzymes 10/25/22 Range/Units 17:17 Total Creatine Kinase 51 (26-140) U/L Liver Function 10/25/22 Range/Units 17:17 Total Bilirubin 0.2 (0.0-1.0) mg/dL Direct Bilirubin < 0.2 (0.0-0.5) mg/dL AST 38 H (5-31) U/L ALT 36 H (0-31) U/L Alkaline Phosphatase 269 H (39-117) U/L Albumin 3.5 (3.5-5.0) g/dL Urine 10/25/22 Range/Units 17:12 Urine Color Yellow Urine Appearance Clear Urine pH 5.5 (5.0-9.0) Ur Specific Pierre >= 1.030 H (1.005-1.025) Urine Protein Negative (Neg-Trace) mg/dL Urine Glucose (UA) Negative (Negative) mg/dL Brain MRI revealed an acute left subcortical embolic looking infarct. [place] [id number] CT Scan Report Signed Patient: Valerie Keenan MR#: [id number] : 1960 Acct:[id number] Age/Sex: 62 / F ADM Date: 10/25/22 Loc: .ED Attending Dr: Ordering Physician: Aminata Sanchez MD Date of Service: 10/25/22 Procedure(s): CT angio head? neck stroke Accession Number(s): [id number] cc: Aminata Sanchez MD~ EXAMINATION: CT ANGIOGRAM HEAD CT ANGIOGRAM NECK CLINICAL INFORMATION: Stroke COMPARISON: Same day CT head and CT angiography head and neck 07/23/2021 TECHNIQUE: Initial noncontrast stratigraphy teacher imaging of the head and neck was performed. Comparison is made with noncontrast head CT from earlier today. Test bolus sequences followed by intravenous administration 70 mL of Omnipaque 350. Helical imaging was performed in the axial plane from the aortic arch to the skull vertex. Delayed postcontrast imaging of the head was also performed. The data was processed at the rad technologist's workstation for generation of MIP sequences. Angled MIPs and volume rendered reformatted images were also generated at an offline 3D workstation. Stenoses are assessed in accordance with Hood et al. Quantification of Carotid Stenosis on CT Angiography. AJR 2006. 27(1):13-19. This CT examination was performed using dose optimization techniques as appropriate, variously including the following: *Automated exposure control *Adjustment of mA and/or kV according to patient size (this includes techniques or standardized protocols for targeted exams where dose is matched to indication/reason for exam; i.e. extremities or head) *Use of iterative reconstruction technique DLP: 1232 mGy-cm FINDINGS: CT HEAD: Noncontrast head CT findings are discussed separately. No pathologic intra-axial enhancement within limitations of CT or regional oligemia. CTA HEAD: Venous contamination compresses diagnostic assessment. Calcified plaque along the carotid siphons contributes to moderate left supraclinoid and mild left supraclinoid ICA stenosis with moderate to severe right cavernous and supraclinoid ICA stenosis. 2 mm inferiorly projecting vascular protrusion arising from the terminal segment of the left supraclinoid ICA may reflect infundibular origin versus aneurysm. The MCA vascular complexes are normal bilaterally. The ALEXANDER complexes are patent with a dominant left A1 segment. The intradural vertebral arteries are patent. The basilar artery is normal. The posterior cerebral arteries are widely patent. No proximal large vessel occlusion. No high flow vascular malformations. No evidence of dural arteriovenous fistula. Timing of the contrast bolus allows assessment of the major dural venous sinuses, which all opacify normally CTA NECK: Degraded by motion artifact. Two vessel branching pattern of the arch with left common carotid artery arising from the brachiocephalic trunk. Mild fibrofatty/calcified plaque in the aortic arch and left subclavian artery origin. The origins of the great vessels are widely patent. The common carotid arteries are widely patent. Predominantly calcified plaque at the left greater than right, carotid bifurcations without luminal narrowing of the internal carotid arteries and calcific plaque of the distal left cervical ICA prior to entering the skull base. Mild undulating luminal irregularity of the distal cervical internal carotid arteries likely reflecting underlying fibromuscular dysplasia. The left vertebral artery is dominant. Calcified plaque moderately narrows the nondominant right vertebral artery origin with widely patent dominant left vertebral artery origin. Focal calcific plaque of the extradural vertebral arteries near the dural insertion with associated focal moderate narrowing on the right, otherwise widely patent extradural vertebral arteries. CT NECK: 3 mm air-filled internal laryngocele on the right. The salivary glands are unremarkable. Coarse calcification within the left thyroid gland. No pathologically enlarged cervical chain lymph nodes.? Multilevel cervical spondylitic disease. Moderate C5-C6 discogenic disease with areas a prominent ventral disc osteophyte abutting the posterior wall of the hypopharynx and the post cricoid region. Patchy groundglass attenuation with interlobular septal thickening in the imaged lungs may reflect mild pulmonary edema. CT/CT angio head? neck stroke IMPRESSION: ? 1.? No proximal large vessel occlusion. 2.? Calcified plaque causes moderate left supraclinoid and mild left supraclinoid ICA stenosis with moderate to severe right cavernous and supraclinoid ICA stenosis. 3.? 2 mm inferiorly projecting vascular protrusion arising from the terminal segment of the left supraclinoid ICA may reflect infundibular origin versus aneurysm. 4.? Moderate right vertebral artery origin stenosis and focal ossific plaque moderately narrowing the right vertebral artery at the dural insertion. 5.? Mild undulating luminal irregularity of the distal cervical internal carotid arteries likely reflecting underlying fibromuscular dysplasia. 6.? Patchy groundglass attenuation with interlobular septal thickening in the imaged lungs may reflect mild pulmonary edema. Assessment and Plan (1) Acute CVA (cerebrovascular accident): Status: Acute 62 years old woman with significant intracranial atherosclerotic disease involving both carotids and vertebral arteries presented with new right sided weakness on top of previous right hemiparesis. Last known normal was the night before and she could not be treated with acute intervention such as intravenous tPA. There was no significant extracranial carotid disease. This is a difficult condition to treat resulting from intracranial disease. I suggest maximizing anti-platelet therapy with Plavix 75 mg daily and aspirin 81 mg daily with blood pressure control and statin. PT OT is recommended. Time Spent With Patient Time: Total time managing care of this patient today ____ minutes. Procedures Date of Service Date of Service: 10/26/22
[2022-10-26 14:23] LABS: Estimated Average Glucose 183 mg/dL
[2022-10-26] MEDS: Enoxaparin Sodium 40 MG/0.4 ML SYRINGE SUBCUT (15:37)
[2022-10-26 15:43] VITALS: BP 162/72; PULSE 66; RESP 18; TEMP 36.7; O2SAT 98
--- NOTE | 2022-10-26 15:56 | MHC.STROKE ---
10/25/22 1427 EMS PRE-NOTIFIED STROKE ALERT ARRIVED AT [facility] 1435. SEEN BY PROVIDER AT 1438, NIHSS = 5. ONSET OF SYMPTOMS 10/24/22 AT 2100. STROKE PROTOCOL ACTIVATED. STAT CTH AND CTA H/N DONE, NO BLEED, NO LVO. THIS PATIENT IS KNOWN TO THE STROKE SERVICE FROM PRIOR VISITS. HER MRI WAS + FOR A NEW STROKE. I MET WITH THE PATIENT AND THE ENTIRE FAMILY, WHOM I KNOW. I REVIEWED THE STROKE EDUCATION HANDOUTS, MRI SCREENSHOT, LOCATION OF THE STROKE AND CORRELATING SYMPTOMS, HER RISK FACTOR, HER MEDICATIONS. THEY ARE CONCERNED ABOUT ANOTHER STROKE HAPPENING. I EXPLAINED HOW IMPORTANT TAKING HER MEDICATIONS, GETTING REST AND CALLING 911 IF SYMPTOMS PERSIST AND RETURN. I ANSWERED ALL OF THEIR QUESTIONS AND I WILL FOLLOW UP TOMORROW.
[2022-10-26 16:14] LABS: Glucose, Whole Blood 183 mg/dL (60-115)
[2022-10-26] MEDS: Insulin Lispro 100 UNIT/ML 3 ML VIAL SUBCUT ×2 (17:13→21:09)
[2022-10-26 19:19] VITALS: BP 124/58; PULSE 69; RESP 17; TEMP 37; O2SAT 94
[2022-10-26 20:11] LABS: Glucose, Whole Blood 207 mg/dL (60-115)
[2022-10-26] MEDS: Sennosides 8.6 MG TABLET 17.2 MG PO (21:08)
[2022-10-26] MEDS: Atorvastatin Calcium 40 MG TABLET PO (21:08)
[2022-10-26] MEDS: risperiDONE 1 MG TABLET PO (21:08)
[2022-10-26] MEDS: Loratadine 10 MG TABLET PO (21:09)
[2022-10-26 23:32] VITALS: BP 121/59; PULSE 69; RESP 18; TEMP 37; O2SAT 96
[2022-10-27 03:54] VITALS: BP 123/59; PULSE 63; RESP 20; TEMP 36.4; O2SAT 100
[2022-10-27 07:11] VITALS: BP 136/83; PULSE 65; RESP 20; TEMP 36.4; O2SAT 98
[2022-10-27 07:49] LABS: Glucose, Whole Blood 82 mg/dL (60-115)
[2022-10-27] MEDS: Sertraline HCL 100 MG TABLET 200 MG PO (09:38)
[2022-10-27] MEDS: Aspirin 81 MG TAB.CHEW PO (09:38)
--- NOTE | 2022-10-27 09:38 | PM.DS ---
DS: Providers Provider Date of Service: 10/27/22 Date of admission: 10/25/22 16:54 Date of discharge: 10/27/22 Primary care physician: Ludy Alonso MD Consults: 10/25/22 16:58 Consult to Neurology Routine Consulting Provider: [facility] Reason for consultation: cva Attending physician on discharge: Frank Mix Discharging clinician: Priti Bartholomew DS: Diagnosis Discharge Diagnosis (1) Acute CVA (cerebrovascular accident): Status: Acute DS: Summary Hospital Course Hospital Course: From H&P on day of admission 62-year-old female with history of tjx-wbhjjzy-kueqlgirv type 2 diabetes, mild intermittent asthma, diabetic polyneuropathy, diabetic poly retinopathy, dyslipidemia, GERD, history of CVA in 10/28 with sequela of left-sided hemiparesis, and hypertension presents to the ED earlier today for evaluation of right-sided weakness and right-sided facial droop that was present upon waking.? Last known well time was around 09:00 o'clock last night when she went to bed.? Symptoms are still present in the ED. on arrival, patient hypertensive to 189/75, vital signs otherwise normal.? Hematology studies unremarkable. Chemistries CXR negative.? Head CT without any acute intracranial pathology.? Head/neck CTA without any LVO but showing moderate left supraclinoid and mild left supraclinoid ICA stenosis and moderate to severe right cavernous in supraclinoid ICA stenosis.? There is also a 2 mm inferiorly projecting vascular protrusion arising from the terminal segment of the left supraclinoid ICA possibly reflecting infundibular origin versus aneurysm.? There is also moderate right vertebral artery origin stenosis and focal ossific plaque moderately narrowing the right vertebral artery at the dural insertion. Also mild undulating luminal irregularity of the distal cervical internal carotid arteries. Pt to be admitted for suspect CVA. Outside of window for tpa. Acute Ischemic CVA Head CT without acute intracranial pathology, head/neck CTA with significant arterial disease but no LVO. Symptomatic with right-sided weakness, right sided facial droop. Continued on baseline ASA 81 mg daily and Added plavix for dual antiplatelet therapy per Neurology. Failed nursing bedside swallow eval. Seen by PACKING ROOM WORKER recommending ground/mech, thin liquids, crushed meds in puree, 1:1 feeds - recommend continued aspiration precautions. Lipids obtained, LDL 74, continue statin. Recent echo from 3/23 with no evidence of PFO. Evaluated by PT, OT, PACKING ROOM WORKER evaluations - recommend acute rehab. Blood pressure medication initially held to allow for permissive hypertension. Lisinopril will be resumed on discharge. Time Spent with Patient Time attestation: Total time managing care of this patient today ____ minutes. Discharge coordination time: Greater than 30 minutes Quality: Safe Use of Opioids Does Pt have an Active Cancer Diagnosis on the Problem List?: No Quality: Stroke Does the patient have a stroke diagnosis?: Yes Reason for No Anti-thrombotic at DC: N/A - Med Ordered Reason for No Anticoagulant at DC: N/A - Med Ordered Reason Not Initiating IV-Tpa: Drug treatment not indicated Reason for No Anti-thrombotic by Day Two: N/A - Med Ordered Reason for No Statin at DC: N/A - Med Ordered Physical Exam Vital Signs: Vital Signs: Last Vital Signs Temp 97.6 F 10/27/22 07:11 Pulse 65 10/27/22 07:11 Resp 20 10/27/22 07:11 BP 136/83 10/27/22 07:11 Pulse Ox 98 10/27/22 07:11 O2 Del Method Room Air 10/27/22 07:11 BMI result Body Mass Index 22.2 Const: General: cooperative, comfortable, no acute distress, alert and awake Nutritional Appearance: average body habitus Resp: Effort & Inspection: normal respiratory effort and able to speak in complete sentences Cardio: Rate: regular rate Heart sounds: S1 normal heart sound present and S2 normal heart sound present GI: Inspection: No distended Palpation (GI): Soft to palpation and nontender Neuro: Other: right facial droop, RUE strength decreased 3/5. lower extremity strength equal bilaterally Extrem: General: Yes no pedal edema DS: Data Data Completed and Pending Labs on day of discharge: Laboratory Results - last 24 hr 10/26/22 10/26/22 10/26/22 06:44 11:44 15:45 POC Glucose 132 H 183 H Estimat Average Glucose 183 Hemoglobin A1c % 8.0 10/26/22 10/27/22 19:16 07:38 POC Glucose 207 H 82 Estimat Average Glucose Hemoglobin A1c % Discharge Plan Discharge Anticipated Discharge Date/Time: 10/27/22 10:49 Patient Disposition: Xfer Inpatient Rehab Fac Discharge Diagnosis: acute stroke Referrals: [facility] [Outside] - 1 Week Po,Ludy Minaya MD [Primary Care Provider] - 1 Week Discharge Medications: New clopidogrel 75 mg Tablet 75 mg PO DAILY 30 Days Qty: 30 0RF Continued multivitamin Tablet 1 tab PO DAILY 90 Days Qty: 90 3RF cholecalciferol (vitamin D3) 50 mcg (2,000 unit) capsule 50 mcg PO DAILY 30 Days Qty: 30 11RF aspirin 81 mg tablet,delayed release (DR/EC) 81 mg PO DAILY Qty: 90 3RF sertraline 100 mg tablet 200 mg PO DAILY 30 Days Qty: 60 2RF risperidone 0.5 mg tablet 1 mg PO BEDTIME Qty: 60 1RF ursodiol 250 mg tablet 250 mg PO TID 30 Days Qty: 90 2RF sennosides [senna] 8.6 mg tablet 17.2 mg PO BEDTIME polyethylene glycol 3350 [Purelax] 17 gram powder in packet 17 g PO DAILY PRN (Reason: constipation) loratadine 10 mg tablet 10 mg PO BEDTIME atorvastatin 40 mg tablet 40 mg PO BEDTIME metformin 500 mg tablet 500 mg PO DAILY lisinopril 10 mg tablet 10 mg PO DAILY albuterol sulfate 90 mcg/actuation HFA aerosol inhaler 1 inh inhalation QID PRN (Reason: Shortness Of Breath Or Wheezing) No Action (DME) Transport wheelchair See Rx Instructions .Route .MEDSUPPLY Qty: 1 0RF Rx Instructions: As directed (DME) lancets [FreeStyle Lancets] 28 gauge misc See Rx Instructions .ROUTE .MEDSUPPLY Qty: 100 3RF Rx Instructions: As directed check the blood sugar once a day (DME) adult diapers size small petite See Rx Instructions .Route .MEDSUPPLY Qty: 90 12RF Rx Instructions: As directed (DME) Adult pull ups small package See Rx Instructions .Route .MEDSUPPLY Qty: 90 11RF Rx Instructions: 8 Per day (PRN), 11 refills for 12 months. (DME) pen needle, diabetic [Comfort EZ Pen [place]] 31 gauge x 3/16 needle See Rx Instructions .Route Qty: 100 3RF Rx Instructions: As directed (DME) MOUTH GUARD See Rx Instructions .Route .MEDSUPPLY Qty: 1 0RF Rx Instructions: As directed (DME) Walker with seat and wheels See Rx Instructions .Route .MEDSUPPLY Qty: 1 0RF Rx Instructions: As directed (DME) FreeStyle Lite Strips Strip See Rx Instructions .ROUTE .MEDSUPPLY Qty: 100 11RF Rx Instructions: As directed 3 x/day Discharge Orders: Discharge Order (Routine); Ordered 10/27/22 Ordered By: Priti Bartholomew Activity on Discharge: As tolerated Stand Alone Forms: Patient Portal Discharge page Care Plan Goals: improvement in right sided weakness/speach Health Concerns: acute stroke Plan of Treatment: Take both aspirin and plavix daily to reduce risk of future strokes continue blood pressure medication as prescribed Seen by speech therapy, recommend diet of ground/mechanically altered with thin liquids and pills crushed in puree. Recommend aspiration precautions and one-to-one supervision for feeding call to schedule follow up appointment with PCP Transfer to acute rehab Assessment: acute stroke
[2022-10-27] MEDS: Multivitamin TABLET 1 TAB PO (09:39)
[2022-10-27] MEDS: Clopidogrel Bisulfate 75 MG TABLET PO (09:39)
[2022-10-27] MEDS: Cholecalciferol (Vitamin D3) 25 MCG TABLET 50 MCG PO (09:39)
[2022-10-27] MEDS: UrsodioL 300 MG CAPSULE PO (09:39)
[2022-10-27] MEDS: 0.9 % Sodium Chloride Flush 3 ML SYRINGE IVFLUSH (09:40)
--- NOTE | 2022-10-27 10:21 | MHC.CM.PN ---
Per ROUNDS discussion, Patient is medically cleared for dc to acute rehab today. Patient will dc to her first choice facility/[facility] today at 1PM, via [facility]. CM has left a detailed message for Daughter/HCP/Maddie @ [phone], informing her of the dc plan.
--- NOTE | 2022-10-27 10:36 | MHC.CM.PN ---
CM received a return call from Daughter/HCP/Maddie and was able to update her on the dc plan.
[2022-10-27 11:03] VITALS: BP 120/50; PULSE 64; RESP 18; TEMP 36.9; O2SAT 99
[2022-10-27 11:42] LABS: Glucose, Whole Blood 213 mg/dL (60-115)
--- NOTE | 2022-10-27 12:09 | MHC.SP.ADU ---
Referring provider: Billie Mercer NP Reason for Referral: CVA Type of Treatment: 00830 Evaluation Speech Sound Production WITH Language Date of Plan of Treatment: 10/27/22 Onset of Symptoms/Illness: 10/26/22 Date Treatment Started: 10/27/22 Medical Diagnosis: CVA. Brain MRI: small acute infarcts involving Left Precentral Gyrus at the Left vertex and Left frontal deep white matter. Primary Speech Language Diagnosis: R47.1 Dysarthria Secondary Speech Language Diagnosis: History Patient is a 61 year old woman who recently had a CVA, who presented to the ED with increased R sided weakness and slurred speech. Medical History: Other: BOB positive Asthma Cervical osteoarthritis CVA (cerebral vascular accident) Diabetes type 2, uncontrolled Diabetic polyneuropathy associated with type 2 diabetes mellitus Diabetic retinopathy associated with type 2 diabetes mellitus Dyslipidemia Fatty liver disease, nonalcoholic GERD (gastroesophageal reflux disease) History of CVA (cerebrovascular accident) History of sleep apnea History of umbilical hernia HTN (hypertension) Hypertension Hypertension Hypoglycemia after GI (gastrointestinal) surgery Osteoarthritis of right glenohumeral joint Postural hypotension Primary biliary cholangitis Shoulder pain, right Sjogrens syndrome Subclinical hypothyroidism Medication List: Recent Hospitalizations: Yes Respiratory Needs: Room Air Patient Orientation: Alert & Oriented x 4 Social History: Employment Status: Unknown Highest level of education obtained: Current Living Situation: Pt lives with her in an apartment, was at [facility] last month Assistive Devices in use: Comment: Past Speech Language Therapy: Patient was seen by IT TELECOM TECHNICIAN during previous stay. Other Therapies Seen in Current Calendar Year: Occupational Therapy Physical Therapy Other: Swallowing History: Dysphagia Specific: Oral Phase Dysphagia Comments: SEE Swallow evaluation of 10/26/22 Pre-eval Risk for Aspiration: Neurological Condition Pre-evaluation Dietary Consistencies: Grnd/Mech Altered (NDD2) Pre-eval Liquid Intake: Thin Pre-eval Medication Intake: Crushed with Puree Reported Speech, Language, Cognition difficulties: Speaking Comments: Patient presents with mild to moderate dysarthria. On screening of receptive and expressive language presents as WFL. Quality of Life: Patient Stated Goal of Speech-Language Therapy: Intake assessment/screening of speech/language/cognitive skills. Patient is pending D/C to [facility] Assessment Speech Production: Dysarthric Clinical Impression: Impaired Observations: Patient presents with imprecise articulation due to oral motor impairment/Right sided weakness. Level of severity is mild to moderate, patient's intelligibility is good to a familiar listener. Informal Voice Assessment: Voice Loudness: Moderately Soft/Quiet Voice Nasal Resonance: Normal Voice Oral Resonance: Normal Voice Phonatory-based Quality: Normal Voice Pitch: Normal Voice Other Observations: Clinical Impression: Intact Clinicial Observations: Tests of Speech & Lang Adults: BNT Clinical Impression: Intact Observations: Patient was given the short form of the BNT, with patient readily labelling 13 of 15 items, with missed items secondary to unfamiliarity v. word finding difficulty (sphynx, tripod). All administration of the test and labelling was in OCCITAN, which is patient's primary language. Patient also readily and fluently produced a narrative in response to cookie theft picture. Patient responded with accuracy to concrete and abstract y/n questions, up to three step directions, and general orientation questions. Patient accurately repeated simple words, multisyllabic words, and phrase length expressions, with mild to moderate dysarthria noted. Tests of Cognition: Clinical Impression: Observations: Augmentative and Alternative Communication: Observations: Impressions and Recommendations Summary: Impact on Daily Function/Activity Limitations: Daily Activities: Mild Interpersonal Interactions: Mild Education: Employment: Community: Mild Prognosis for Improvement: Good Comment: Recommendation for Speech Therapy: Inpatient Speech Therapy Speech Therapy through Rehab Facility Frequency/Duration: M-F while inpatient. Date Range for Service Requested: Time to Reassess: Personal Investment Adviser Goals: Comprehensive assessement of speech, language and cognitive function Short Term Goals: Goal # : Formal assessment of receptive and expressive language in OCCITAN Goal Status: Goal# : Formal assessment of cognition in OCCITAN. Goal Status: Goal # : Goal Status: Goal # : Goal Status: Recommended Referrals to be Discussed with Primary Care Provider: Patient Education: Completed: Yes Patient/Caregiver Education: Described Results of Evaluation Patient expressed understanding of evaluation Comments/Barriers to Learning: Chemist Steroids Clinican/Clinical Fellow: No Supervisory Statement: N/A Speech Language Pathologist: Елена Dee M.A., [facility]-IT TELECOM TECHNICIAN
[2022-10-27] MEDS: Insulin Lispro 100 UNIT/ML 3 ML VIAL SUBCUT (12:17)
== END 2022-10-27 12:30 | DRG 45 ==
LOC: HO.ED 16:31 → HO.EDOVER 17:09 → HO.IMC 17:18
PROVIDERS: Admitting Provider Physician Assistant; Emergency Provider Emergency Medicine Emergency Medical Services; PCP Internal Medicine; Visit Provider Physician Assistant Medical
DX: I63.9 Cerebral infarction, unspecified (principal); G81.91 Hemiplegia, unspecified affecting right dominant side; E11.42 Type 2 diabetes mellitus with diabetic polyneuropathy; I67.2 Cerebral atherosclerosis; I69.354 Hemiplegia and hemiparesis following cerebral infarction affecting left non-dominant side; E03.8 Other specified hypothyroidism; I65.23 Occlusion and stenosis of bilateral carotid arteries; R29.810 Facial weakness; R29.705 NIHSS score 5; J45.20 Mild intermittent asthma, uncomplicated; Z91.040 Latex allergy status; Z88.2 Allergy status to sulfonamides; Z88.5 Allergy status to narcotic agent; Z79.82 Long term (current) use of aspirin; Z79.899 Other long term (current) drug therapy
CPT/HCPCS: 36415; 70450; 70496; 70498; 70551; 71045; 80048; 80061; 80076; 81001; 82550; 82947; 83036; 83735; 84100; 84484; 85025; 85610; 85730; 87635; 92523; 92610; 93005; 97116; 97162; 97166; 97530; 97535; 99285; J1650; Q9967

== ENCOUNTER 2023-01-19 10:26 | Observation (INO) | payer OTHER, SELFPAY ==
[2023-01-19] VITALS (8 sets, daily range): BP systolic 120–207; BP diastolic 55–89; PULSE 57–70; RESP 13–20; TEMP 36.5–37; O2SAT 96–98; BMI 21.5; BMI 21.9
--- NOTE | ~2023-01-19 | CT_ITS ---
EXAMINATION: CT angio head neck stroke CLINICAL INFORMATION: Right-sided weakness. COMPARISON: CT scan of the head 01/19/2023. Brain MRI 10/26/2022. TECHNIQUE: Millinery Worker images were obtained. A CT angiogram of the head and neck was performed in the arterial phase after the intravenous administration of 70 mL Omnipaque 350. Pre and delayed postcontrast images of the head were also obtained. 3D images were processed on an independent workstation under concurrent supervision. Arterial stenoses are measured in accordance with NASCET criteria or similar method if applicable. This CT examination was performed using dose optimization techniques as appropriate, including one or more of the following: Automated exposure control, iterative reconstruction, and adjustment of technique factors (mA and/or kVp) according to patient size (this includes techniques or standardized protocols for targeted exams where dose is matched to indication/reason for exam). Fleischner Society criteria for the followup of incidental pulmonary nodules was implemented if appropriate. Total exam dose-length product 1297 mGy-cm FINDINGS: Head: There are scattered foci of hypoattenuation within the basal ganglia, periventricular white, and liana that coincide with chronic small vessel ischemic changes and chronic lacunar infarcts better depicted on MR imaging of the brain from 10/26/2022. Grossly no subacute territorial infarct or hemorrhage. No abnormal extra-axial collection. Lateral and third ventricles are normal. No hydrocephalus. The calvarium and skull base are intact. Mastoid air cells and middle ear cavities are well-aerated. No active paranasal sinus disease. CT angiogram neck: The aortic arch apex is normal. Scattered atheromatous calcification involves the aortic arch apex. Origins of the major aortic branches are widely patent. Common carotid arteries are normal. There is a small amount of partially calcified atherosclerotic plaque at both carotid bifurcations. No stenosis of the extracranial internal carotid arteries. The cervical segments of the vertebral arteries are widely patent. CT angiogram head: Atheromatous calcification causes moderate to severe stenosis of the cavernous segments of both internal carotid arteries, greater on the right. There is also an anteriorly projecting contour abnormality involving the left supraclinoid internal carotid artery that may either represent a vascular infundibulum or aneurysm measuring approximately 1.5 mm from base apex. The intradural vertebral artery segments and basilar artery are patent. Anterior, middle, and posterior cerebral complexes are normal. No intracranial large vessel occlusion. The timing of the contrast injection provides adequate opacification of the dural venous sinuses which are patent. Other: Soft tissues of the neck including the thyroid gland are normal. Grossly no pathologically enlarged cervical lymph nodes. Lung apices are clear. No acute osseous finding. Specifically no worrisome lytic or blastic osseous lesion. There is multilevel degenerative spondylosis of the cervical spine. Grossly no spinal canal compromise. CT/CT angio head neck stroke IMPRESSION: Atheromatous calcification causes moderate to severe stenosis of the cavernous segments of both internal carotid arteries, greater on the right. Otherwise no intracranial large vessel occlusion. No stenosis of the cervical carotid or vertebral arteries. There are numerous chronic small vessel ischemic changes within the periventricular white matter, basal ganglia, and liana that are better depicted on MR imaging of the brain from 10/26/2022. Grossly no subacute territorial infarct or hemorrhage.
--- NOTE | ~2023-01-19 | CT_ITS ---
EXAMINATION: CT HEAD WITHOUT CONTRAST (STROKE PROTOCOL) CLINICAL INFORMATION: Altered mental status, rule out intracranial abnormality. COMPARISON: 10/25/[address] and CTA. TECHNIQUE: Contiguous axial imaging was performed from the skull base to vertex without intravenous administration of contrast. Coronal and sagittal reformatted images were obtained. This CT examination was performed using dose optimization techniques as appropriate, variously including the following: *Automated exposure control *Adjustment of mA and/or kV according to patient size (this includes techniques or standardized protocols for targeted exams where dose is matched to indication/reason for exam; i.e. extremities or head) *Use of iterative reconstruction technique DLP: 520 mGy-cm FINDINGS: The cortical sulci are normal. The lateral ventricles are symmetrical. The third and fourth ventricles are in their normal midline position. The basilar and prepontine cisterns are unremarkable. There is no acute intra or extracerebral abnormality. There is no mass effect or midline shift. Sections through the bony calvarium are unremarkable. The paranasal sinuses show mild to moderate mucosal thickening in the paranasal sinuses bilaterally. The bony orbits and orbital contents are unremarkable. CT/CT head for stroke IMPRESSION: No acute intracranial pathology.
--- NOTE | ~2023-01-19 | XR_ITS ---
EXAMINATION: XR CHEST CLINICAL INFORMATION: Shortness of breath. COMPARISON: 10/25/2022 chest radiograph. TECHNIQUE: Frontal view of the chest was obtained. FINDINGS: No significant abnormality is noted involving the heart, lungs, mediastinum, bony thorax or soft tissues. XR/XR chest 1V IMPRESSION: No acute cardiopulmonary process.
--- NOTE | 2023-01-19 10:37 | ECG_ITS ---
Test Reason : STROKE Blood Pressure : / mmHG Vent. Rate : 064 BPM Atrial Rate : 064 BPM P-R Int : 182 ms QRS Dur : 066 ms QT Int : 444 ms P-R-T Axes : 048 001 100 degrees QTc Int : 458 ms Normal sinus rhythm Minimal voltage criteria for LVH, may be normal variant ( R in aVL ) Abnormal QRS-T angle, consider primary T wave abnormality Abnormal ECG When compared with ECG of 25-OCT-2022 15:32, No significant change was found Referred By: Aminata Sanchez Electronically Signed By:SVETA FRASER MD
[2023-01-19 10:49] LABS: MANUAL DIFF FLAG NO
[2023-01-19 10:54] LABS: Basophils Percent Auto 0.5 % (0-2); Eosinophils Absolute Auto 0.2 X10*3/uL (0.0-0.4); Eosinophils Percent Auto 3.5 % (0-4); Hematocrit 41.1 % (37.0-47.0); Hemoglobin 12.6 g/dl (12.0-16.0); Imm Gran Abs Auto 0.03 X10*3/uL (0.00-0.03); Imm Gran Pct Auto 0.5 % (0.0-0.4); Lymphocytes Absolute Auto 2.1 X10*3/uL (1.2-4.9); Lymphocytes Percent Auto 36.3 % (20-40); Mean Corpuscular HGB Conc 30.7 g/dl (31.0-35.0); Mean Corpuscular Hemoglobin 24.8 pg (27.0-33.0); Mean Corpuscular Volume 80.9 fL (80.0-98.0); Mean Platelet Volume 12.8 fL (9.4-12.3); Monocytes Absolute Auto 0.4 X10*3/uL (0.1-1.2); Monocytes Percent Auto 7.3 % (2-11); Neutrophils Absolute Auto 2.9 x10*3/uL (2.0-8.3); Neutrophils Percent Auto 51.9 % (45-73); Platelet Count 287 X10*3/uL (160-400); Red Blood Count 5.08 X10*6/uL (4.20-5.50); Red Cell Distribution Width 15.9 % (11.0-16.0); White Blood Count 5.6 X10*3/uL (4.8-10.8)
--- NOTE | 2023-01-19 10:58 | PC.NURSE ---
pt delayed to go to ct because another pt was in ct at that time
[2023-01-19 11:02] LABS: INTERNATIONAL NORM RATIO 1.1 (0.9-1.1); Prothrombin Time 12.5 SEC (10.0-13.1)
[2023-01-19 11:04] LABS: Partial Thromboplastin Time 37.5 SEC (26.0-36.4)
[2023-01-19 11:05] LABS: Stroke Lab Use COMPLETE
[2023-01-19 11:08] LABS: Glucose, Whole Blood 124 mg/dL (60-115)
[2023-01-19 11:12] LABS: Glucose Random 121 mg/dL (60-115)
--- NOTE | 2023-01-19 11:22 | ED_ITS ---
HPI - Neuro Symptoms/Deficit General Chief Complaint: Stroke Stated Complaint: Weakness R side, r side facial droop. [id number] Time Seen by Provider: 01/19/23 10:36 History of Present Illness HPI Narrative: Patient is a 62-year-old female with a history of coronary artery disease history of carotid disease in both the carotid and vertebral vessels history of diabetes with had a stroke back in October currently on Plavix. Presented today with having increasing right facial weakness. Patient baseline has left-sided weakness initially. After stroke in October patient has right upper extremity weakness. Family noted patient had increasing facial droop. Came to the ED for further evaluation. There is no fever no chills. Last known well time was approximately 06:00. Family noted patient to be baseline at that time. Related Data Home Medications Medication Instructions Recorded Confirmed albuterol sulfate 90 mcg/actuation 1 inh inhalation QID PRN Shortness 04/28/20 01/19/23 aerosol inhaler Of Breath Or Wheezing polyethylene glycol 3350 17 gram 17 g PO DAILY PRN constipation 10/25/22 01/19/23 oral powder packet (Purelax) metformin 500 mg tablet 500 mg PO DAILY@0730 01/19/23 01/19/23 Previous Rx's Medication Instructions Recorded pen needle, diabetic 31 gauge x #100 ea 02/24/2109/22 (Comfort EZ Pen Callahan) Transport wheelchair #1 ea 08/11/21 multivitamin 1 tab PO DAILY 90 days #90 tabs 09/13/21 Walker with seat and wheels #1 ea 09/28/21 lancets 28 gauge (FreeStyle #100 ea 12/28/21 Lancets) cholecalciferol (vitamin D3) 50 50 mcg PO DAILY 30 days #30 caps 03/28/22 mcg (2,000 unit) capsule aspirin 81 mg tablet,delayed 81 mg PO DAILY #90 tabs 04/20/22 release MOUTH GUARD #1 ea 06/08/22 adult diapers size small petite #90 ea 08/03/22 sertraline 100 mg tablet 200 mg PO DAILY 30 days #60 tabs 09/26/22 ursodiol 250 mg tablet 250 mg PO TID 30 days #90 tabs 10/12/22 risperidone 0.5 mg tablet 1 mg PO BEDTIME #60 tabs 10/30/22 blood sugar diagnostic (FreeStyle #100 ea 11/28/22 Lite Strips) silver sulfadiazine 1 % topical 1 appl topical DAILY PRN wound 12/12/22 cream (Silvadene) healing 30 days #85 grams Adult pull ups #90 ea 12/13/22 stair lift #1 ea 12/16/22 atorvastatin 40 mg tablet 40 mg PO BEDTIME #90 tabs 01/02/23 loratadine 10 mg tablet 10 mg PO BEDTIME #90 tabs 01/02/23 sennosides 8.6 mg tablet (senna) 17.2 mg PO BEDTIME #90 tabs 01/02/23 disposable gloves (Disposable #1,000 ea 01/03/23 Latex-Free Gloves) clopidogrel 75 mg tablet 75 mg PO DAILY 30 days #30 tabs 01/07/23 Allergies Allergy/AdvReac Type Severity Reaction Status Date / Time Latex, Natural Rubber Allergy Intermediate Rash Verified 12/12/22 14:02 Sulfa (Sulfonamide AdvReac Intermediate Stomach Verified 12/12/22 14:02 Antibiotics) Upset [SULFA (SULFONAMIDE ANTIBIOTICS)] Morphine Sulfate AdvReac Intermediate Abdominal Uncoded 12/12/22 13:51 Pain Review of Systems Review of Systems: Positive slight facial weakness noted last known well time approximately 06:00 Yes all other systems are reviewed and are negative PMFSH Past Medical History Attestation statement: The following information was validated with the patient. Medical History BOB positive Asthma Cervical osteoarthritis CVA (cerebral vascular accident) Diabetes type 2, uncontrolled Diabetic polyneuropathy associated with type 2 diabetes mellitus Diabetic retinopathy associated with type 2 diabetes mellitus Dyslipidemia Fatty liver disease, nonalcoholic GERD (gastroesophageal reflux disease) History of CVA (cerebrovascular accident) History of sleep apnea History of umbilical hernia HTN (hypertension) Hypertension Hypertension Hypoglycemia after GI (gastrointestinal) surgery Osteoarthritis of right glenohumeral joint Postural hypotension Primary biliary cholangitis Shoulder pain, right Sjogrens syndrome Subclinical hypothyroidism Surgical History History of carpal tunnel release History of esophagogastroduodenoscopy (EGD) History of laparoscopic appendectomy History of partial hysterectomy Hx of section Hx of colonoscopy Hx of dilation and curettage Hx of gastric bypass Hx of tonsillectomy Family History Family History Father SD (myocardial infarction) Diabetes mellitus Mother Diabetes mellitus CVA (cerebral vascular accident) Maternal Grandmother Stomach cancer Sister Hemorrhagic cerebrovascular accident (CVA) Social History Social History Household Members: Spouse Housing: Apartment Are you a primary primary care nurse practitioner to a significant other at home: No Do you presently have visiting nurse or other home services: Yes (Pt requires 24 hour care, She has a VNA nurse but no IT FIELD TECHNICIAN yet in the house) Alcohol intake: never Patient Tobacco Use Status: Never used Tobacco Smoked in Last 30 Days: No e-Cigarette/Vaping Use: Never Used Second Hand Smoke Exposure: No Use of substances other than those prescribed or required for medical reasons: No Advance Directives: No Advance Directives Date on File: 07/10/99 service: No Current occupational status: disabled Cognitive needs: Yes (wheelchait) Hearing needs: No Vision needs: No Physical Exam Vital Signs: Vital Signs: Last Vital Signs Temp 98.3 F 01/19/23 13:14 Pulse 59 01/19/23 13:14 Resp 13 01/19/23 13:14 BP 199/71 H 01/19/23 13:14 Pulse Ox 98 01/19/23 13:14 O2 Del Method Room Air 01/19/23 13:14 BMI result Body Mass Index 21.5 Appearance: Alert. Oriented X3. No acute distress. Eyes: Pupils equal, round and reactive to light. Positive subconjunctival hemorrhage noted on the right side. ENT: Pharynx normal. Neck: Normal inspection. Neck supple. No lymph nodes noted. No crepitus CVS: Normal heart rate and rhythm. Pulses normal. Normal S1 and S2 Respiratory: No respiratory distress. Breath sounds normal. No Wheezing. No rales Abdomen: Soft and nontender. No rigidity. No distention. good BS x4 Skin: Skin warm and dry. Normal skin color. Normal skin turgor. Extremities: No lower extremity edema. Neurovascular intact to all extremities. No Lacerations. No Rash Neuro: Oriented X 3. Positive good motor in bilateral upper extremity. Good hand grasps. Able lift up against gravity. Positive symmetrical weakness in bilateral lower extremity. Able lift the leg for approximately 1-2 seconds on both sides. Sensation grossly intact. Slight facial droop noted on the right. Both on the forehead and also in the face. Medications Administered Discontinued Medications Generic Name Dose Route Start Last Admin Trade Name Robson PRN Reason Stop Dose Admin Iohexol 100 ml 01/19/23 11:33 01/19/23 11:34 Iohexol 350 Mg/Ml 100 Ml Infus..Btl IV 01/19/23 11:34 70 ml ONCE ONE Administration Medical Decision Making Medical Decision Making [facility] Narrative: Patient had had previous workup in the past. Including CT scan of the head MRI of the head CTA of the head and neck. Her medication has been maximized. She is currently on Plavix. She has extensive vascular disease noted in both the carotid and vertebral vessels. It had a previous baseline bilateral weakness secondary to multiple strokes in the past. Patient today had increasing facial weakness. CT scan of the head was grossly negative for any acute evidence of bleeding. CTA of the head and neck is currently pending. A stroke alert was called this patient's symptoms was less than 4-1/2 hours at this point. Patient's urine showed question infection. Will start antibiotic after discussion with hospitalist team. Patient chest x-ray is grossly negative for any acute evidence of pneumonia. Given the extent of patient's weakness. Patient not a great candidate for tPA as patient already have subconjunctival hemorrhage. To be admitted for stroke. Blood pressure on recheck is 177/97. Had a long discussion with patient's family. Will admit for further evaluation. Differential Diagnosis Differential Diagnoses: The differential diagnosis associated with the pr esentation includes CVA, urinary tract infection. Admission/Observation Consideration of admission/observation: Escalation of care including admission/observation considered Consult Healthcare Provider Management of the patient was discussed with: Hospitalist Lab Data [facility] Lab Attestation statement: I reviewed the patient's lab results. 01/19/23 10:44 01/19/23 10:44 Labs: Lab Results 01/19/23 01/19/23 01/19/23 Range/Units 10:44 10:44 10:44 WBC 5.6 (4.8-10.8) X10*3/uL RBC 5.08 (4.20-5.50) X10*6/uL Hgb 12.6 (12.0-16.0) g/dl Hct 41.1 (37.0-47.0) % MCV 80.9 (80.0-98.0) fL MCH 24.8 L (27.0-33.0) pg MCHC 30.7 L (31.0-35.0) g/dl RDW 15.9 (11.0-16.0) % Plt Count 287 (160-400) X10*3/uL MPV 12.8 H (9.4-12.3) fL Immature Gran % (Auto) 0.5 H (0.0-0.4) % Neut % (Auto) 51.9 (45-73) % Lymph % (Auto) 36.3 (20-40) % Trinity % (Auto) 7.3 (2-11) % Eos % (Auto) 3.5 (0-4) % Baso % (Auto) 0.5 (0-2) % Lymph # (Auto) 2.1 (1.2-4.9) X10*3/uL Trinity # (Auto) 0.4 (0.1-1.2) X10*3/uL Eos # (Auto) 0.2 (0.0-0.4) X10*3/uL Baso # (Auto) 0.0 (0.0-0.2) X10*3/uL Abs Immat Gran (auto) 0.03 (0.00-0.03) X10*3/uL Absolute Neuts (auto) 2.9 (2.0-8.3) x10*3/uL Absolute Nucleated RBC 0.000 (0.0-0.012) X10*3/uL Nucleated RBC % (auto) 0.0 (0.0-0.2) /100WBC PT 12.5 (10.0-13.1) SEC Whole Blood PT (11.1-13.5) sec INR 1.1 (0.9-1.1) Whole Blood INR (0.9-1.1) APTT 37.5 H (26.0-36.4) SEC Sodium (135-145) mmol/L Potassium (3.3-5.1) mmol/L Chloride (96-108) mmol/L Carbon Dioxide (22-29) mmol/L Anion Gap (12-20) BUN (9-16) mg/dL Creatinine (0.5-1.4) mg/dL Estim Creat Clear Calc Estimated GFR POC Glucose (60-115) mg/dL Random Glucose 121 H (60-115) mg/dL Calcium (8.4-10.2) mg/dL Phosphorus (2.7-4.5) mg/dL Magnesium (1.6-2.6) mg/dL Total Bilirubin (0.0-1.0) mg/dL Direct Bilirubin (0.0-0.5) mg/dL AST (5-31) U/L ALT (0-31) U/L Alkaline Phosphatase (39-117) U/L Total Creatine Kinase (26-140) U/L Troponin I High Sens (<3.5-17.0) ng/L Total Protein (6.5-8.0) g/dL Albumin (3.5-5.0) g/dL Urine Color Urine Appearance Urine pH (5.0-9.0) Ur Specific Kenton (1.005-1.025) Urine Protein (Neg-Trace) mg/dL Urine Glucose (UA) (Negative) mg/dL Urine Ketones (Negative) mg/dL Urine Blood (Negative) Urine Nitrite (Negative) Ur Leukocyte Esterase (Negative) Urine RBC (0-2) /HPF Urine WBC (0-5) /HPF Ur Squamous Epith Cells (0-2) /HPF Urine Bacteria (None Seen) Hyaline Casts (0-2) /LPF 01/19/23 01/19/23 01/19/23 Range/Units 10:44 11:00 11:00 WBC (4.8-10.8) X10*3/uL RBC (4.20-5.50) X10*6/uL Hgb (12.0-16.0) g/dl Hct (37.0-47.0) % MCV (80.0-98.0) fL MCH (27.0-33.0) pg MCHC (31.0-35.0) g/dl RDW (11.0-16.0) % Plt Count (160-400) X10*3/uL MPV (9.4-12.3) fL Immature Gran % (Auto) (0.0-0.4) % Neut % (Auto) (45-73) % Lymph % (Auto) (20-40) % Trinity % (Auto) (2-11) % Eos % (Auto) (0-4) % Baso % (Auto) (0-2) % Lymph # (Auto) (1.2-4.9) X10*3/uL Trinity # (Auto) (0.1-1.2) X10*3/uL Eos # (Auto) (0.0-0.4) X10*3/uL Baso # (Auto) (0.0-0.2) X10*3/uL Abs Immat Gran (auto) (0.00-0.03) X10*3/uL Absolute Neuts (auto) (2.0-8.3) x10*3/uL Absolute Nucleated RBC (0.0-0.012) X10*3/uL Nucleated RBC % (auto) (0.0-0.2) /100WBC PT (10.0-13.1) SEC Whole Blood PT 14.7 H (11.1-13.5) sec INR (0.9-1.1) Whole Blood INR 1.2 H (0.9-1.1) APTT (26.0-36.4) SEC Sodium (135-145) mmol/L Potassium (3.3-5.1) mmol/L Chloride (96-108) mmol/L Carbon Dioxide (22-29) mmol/L Anion Gap (12-20) BUN (9-16) mg/dL Creatinine (0.5-1.4) mg/dL Estim Creat Clear Calc Estimated GFR POC Glucose 124 H (60-115) mg/dL Random Glucose (60-115) mg/dL Calcium (8.4-10.2) mg/dL Phosphorus (2.7-4.5) mg/dL Magnesium (1.6-2.6) mg/dL Total Bilirubin (0.0-1.0) mg/dL Direct Bilirubin (0.0-0.5) mg/dL AST (5-31) U/L ALT (0-31) U/L Alkaline Phosphatase (39-117) U/L Total Creatine Kinase (26-140) U/L Troponin I High Sens < 2.7 (<3.5-17.0) ng/L Total Protein (6.5-8.0) g/dL Albumin (3.5-5.0) g/dL Urine Color Urine Appearance Urine pH (5.0-9.0) Ur Specific Kenton (1.005-1.025) Urine Protein (Neg-Trace) mg/dL Urine Glucose (UA) (Negative) mg/dL Urine Ketones (Negative) mg/dL Urine Blood (Negative) Urine Nitrite (Negative) Ur Leukocyte Esterase (Negative) Urine RBC (0-2) /HPF Urine WBC (0-5) /HPF Ur Squamous Epith Cells (0-2) /HPF Urine Bacteria (None Seen) Hyaline Casts (0-2) /LPF 01/19/23 01/19/23 Range/Units 11:34 13:17 WBC (4.8-10.8) X10*3/uL RBC (4.20-5.50) X10*6/uL Hgb (12.0-16.0) g/dl Hct (37.0-47.0) % MCV (80.0-98.0) fL MCH (27.0-33.0) pg MCHC (31.0-35.0) g/dl RDW (11.0-16.0) % Plt Count (160-400) X10*3/uL MPV (9.4-12.3) fL Immature Gran % (Auto) (0.0-0.4) % Neut % (Auto) (45-73) % Lymph % (Auto) (20-40) % Trinity % (Auto) (2-11) % Eos % (Auto) (0-4) % Baso % (Auto) (0-2) % Lymph # (Auto) (1.2-4.9) X10*3/uL Trinity # (Auto) (0.1-1.2) X10*3/uL Eos # (Auto) (0.0-0.4) X10*3/uL Baso # (Auto) (0.0-0.2) X10*3/uL Abs Immat Gran (auto) (0.00-0.03) X10*3/uL Absolute Neuts (auto) (2.0-8.3) x10*3/uL Absolute Nucleated RBC (0.0-0.012) X10*3/uL Nucleated RBC % (auto) (0.0-0.2) /100WBC PT (10.0-13.1) SEC Whole Blood PT (11.1-13.5) sec INR (0.9-1.1) Whole Blood INR (0.9-1.1) APTT (26.0-36.4) SEC Sodium 140 (135-145) mmol/L Potassium 4.7 (3.3-5.1) mmol/L Chloride 104 (96-108) mmol/L Carbon Dioxide 29 (22-29) mmol/L Anion Gap 12 (12-20) BUN 16 (9-16) mg/dL Creatinine 0.74 (0.5-1.4) mg/dL Estim Creat Clear Calc 57.9 Estimated GFR > 60 POC Glucose (60-115) mg/dL Random Glucose 123 H (60-115) mg/dL Calcium 9.8 D (8.4-10.2) mg/dL Phosphorus 3.8 (2.7-4.5) mg/dL Magnesium 1.7 (1.6-2.6) mg/dL Total Bilirubin 0.3 (0.0-1.0) mg/dL Direct Bilirubin 0.1 (0.0-0.5) mg/dL AST 34 H (5-31) U/L ALT 28 (0-31) U/L Alkaline Phosphatase 283 H (39-117) U/L Total Creatine Kinase 58 (26-140) U/L Troponin I High Sens (<3.5-17.0) ng/L Total Protein 7.9 (6.5-8.0) g/dL Albumin 3.6 (3.5-5.0) g/dL Urine Color Yellow Urine Appearance Clear Urine pH 7.0 (5.0-9.0) Ur Specific Kenton 1.025 (1.005-1.025) Urine Protein Negative (Neg-Trace) mg/dL Urine Glucose (UA) Negative (Negative) mg/dL Urine Ketones Negative (Negative) mg/dL Urine Blood Negative (Negative) Urine Nitrite Negative (Negative) Ur Leukocyte Esterase Trace H (Negative) Urine RBC 0-2 (0-2) /HPF Urine WBC 6-10 H (0-5) /HPF Ur Squamous Epith Cells 0-2 (0-2) /HPF Urine Bacteria 2+ (None Seen) Hyaline Casts 0-2 (0-2) /LPF Independent Interpretation I performed an independent interpretation of an: EKG, Plain X-Ray and CT Scan Interpretation: My interpretation of patient's EKG showed a sinus rhythm heart rate 65 NC QRS QTC within normal limits is no acute ST segment elevation. My interpretation patient's chest x-ray grossly negative. My interpretation patient's CT scan of the head grossly negative for any acute evidence of bleeding. Radiology Impression Discussion of test interpretation with radiology: I have reviewed the radiologist's reading. Radiologist Impression: CT scan head negative CT A negative for large vessel Independent Historian Discussed with patient's daughter and sister External Record Review External record reviewed: Inpatient record Tests considered The following testing was considered but not selected: No tPA at this time Chronic Conditions Patient?s care impacted by: Diabetes and Hypertension NIH Stroke Scale Internal: Initial- Upon Arrival Time: 11:24 Level of Consciousness: Alert Level of Consciousness Questions: Answers both questions correctly Level of Consciousness Commands: Performs both tasks correctly Best Gaze: Normal Visual: No visual loss Facial Palsy: Minor paralyis Motor Arm (Right): No drift Motor Arm (Left): No drift Motor Leg (Right): Some effort against gravity Motor Leg (Left): Some effort against gravity Limb Ataxia: Absent Sensory: Normal Best Language: Mild to moderate aphasia Dysarthia: Mild to moderate dysarthria Extinction and Inattention: No abnormality Score: 7 Critical Care Time Critical Care Time Critical Care Time: Yes Total Critical Care Time: 40 Attestation: I have personally provided 40 minutes of critical care time exclusive of time spent on separately billable procedures. Time includes review of lab data, radiology results, discussion with consultants, and monitoring for potential decompensation. Interventions were performed as documented above Discharge Plan Discharge Clinical Impression: Hypertension, History of CVA (cerebrovascular accident) Patient Disposition: Admitted As Inpatient Prescriptions: No Action (DME) Transport wheelchair See Rx Instructions .Route .MEDSUPPLY Qty: 1 0RF Rx Instructions: As directed multivitamin Tablet 1 tab PO DAILY 90 Days Qty: 90 3RF (DME) lancets [FreeStyle Lancets] 28 gauge misc See Rx Instructions .ROUTE .MEDSUPPLY Qty: 100 3RF Rx Instructions: As directed check the blood sugar once a day cholecalciferol (vitamin D3) 50 mcg (2,000 unit) capsule 50 mcg PO DAILY 30 Days Qty: 30 11RF aspirin 81 mg tablet,delayed release (DR/EC) 81 mg PO DAILY Qty: 90 3RF (DME) adult diapers size small petite See Rx Instructions .Route .MEDSUPPLY Qty: 90 12RF Rx Instructions: As directed sertraline 100 mg tablet 200 mg PO DAILY 30 Days Qty: 60 2RF ursodiol 250 mg tablet 250 mg PO TID 30 Days Qty: 90 2RF risperidone 0.5 mg tablet 1 mg PO BEDTIME Qty: 60 1RF (DME) FreeStyle Lite Strips Strip See Rx Instructions .ROUTE .MEDSUPPLY Qty: 100 11RF Rx Instructions: As directed 3 x/day (DME) Adult pull ups medium package See Rx Instructions .Route .MEDSUPPLY Qty: 90 11RF Rx Instructions: 8 Per day (PRN), 11 refills for 12 months. (DME) stair lift See Rx Instructions .Route .MEDSUPPLY Qty: 1 0RF Rx Instructions: As directed atorvastatin 40 mg tablet 40 mg PO BEDTIME Qty: 90 0RF loratadine 10 mg tablet 10 mg PO BEDTIME Qty: 90 0RF sennosides [senna] 8.6 mg tablet 17.2 mg PO BEDTIME Qty: 90 0RF (DME) disposable gloves [Disposable Latex-Free Gloves] Misc See Rx Instructions .Route Qty: 1000 3RF Rx Instructions: As directed clopidogrel 75 mg tablet 75 mg PO DAILY 30 Days Qty: 30 0RF metformin 500 mg tablet 500 mg PO DAILY@0730 polyethylene glycol 3350 [Purelax] 17 gram powder in packet 17 g PO DAILY PRN (Reason: constipation) (DME) pen needle, diabetic [Comfort EZ Pen Callahan] 31 gauge x 3/16 needle See Rx Instructions .Route Qty: 100 3RF Rx Instructions: As directed (DME) MOUTH GUARD See Rx Instructions .Route .MEDSUPPLY Qty: 1 0RF Rx Instructions: As directed silver sulfadiazine [Silvadene] 1 % cream 1 appl topical DAILY PRN (Reason: wound healing) 30 Days Qty: 85 0RF Rx Instructions: apply a 1.5 mm thickness (DME) Walker with seat and wheels See Rx Instructions .Route .MEDSUPPLY Qty: 1 0RF Rx Instructions: As directed albuterol sulfate 90 mcg/actuation HFA aerosol inhaler 1 inh inhalation QID PRN (Reason: Shortness Of Breath Or Wheezing)
[2023-01-19 11:23] LABS: Troponin-I High Sensitivity < 2.7 ng/L (<3.5-17.0)
--- NOTE | 2023-01-19 11:23 | PC.NURSE ---
pt a&ox3. respirations equal and unlabored. pt presented with s/s of stroke. pt baseline bilateral weakness but noticeably greater on the right side today, pt has bulging, severe reddened right eye d/t previous stroke. pt able to move all extremities, no visble drop of arms or legs, able to follow commands. pt has right sided facial droop but speech is clear. pt normal sinus on tele.
[2023-01-19] MEDS: iohexoL 350 MG/ML 100 ML INFUS..BTL IV (11:34)
[2023-01-19 11:53] LABS: Anion Gap 12 (12-20)
[2023-01-19 11:58] LABS: Alanine Aminotransferase 28 U/L (0-31); Albumin Level 3.6 g/dL (3.5-5.0); Alkaline Phosphatase 283 U/L (39-117); Aspartate Amino Transferase 34 U/L (5-31); Bilirubin Direct 0.1 mg/dL (0.0-0.5); Bilirubin Total 0.3 mg/dL (0.0-1.0); Blood Urea Nitrogen 16 mg/dL (9-16); Calcium 9.8 mg/dL (8.4-10.2); Carbon Dioxide 29 mmol/L (22-29); Chloride 104 mmol/L (96-108); Creatinine Clr Calc Pharmacy 57.9; Estimated Glomerular Filt Rate > 60; Glucose Random 123 mg/dL (60-115); Magnesium 1.7 mg/dL (1.6-2.6); Phosphorus 3.8 mg/dL (2.7-4.5); Potassium 4.7 mmol/L (3.3-5.1); Sodium 140 mmol/L (135-145); Total Protein 7.9 g/dL (6.5-8.0)
[2023-01-19 12:54] LABS: Prothrombin Time Whole Bld POC 14.7 sec (11.1-13.5); ~PT, ~INR - Anti Coag Clinic 1.2 (0.9-1.1)
[2023-01-19 13:32] LABS: Appearance Urine Clear; Color Urine Yellow; Glucose Urine UA Negative (Negative); Leukocyte Esterase Urine Trace (Negative); Nitrite Urine Negative (Negative); Specific Gravity - Urine 1.025 (1.005-1.025); UMIC TRIGGER UACC YES; Urine Blood Negative (Negative); Urine Ketones Negative (Negative); Urine Protein Negative (Neg-Trace)
[2023-01-19 13:40] LABS: Bacteria Urine 2+ (None Seen); Hyaline Casts Urine 0-2 /LPF (0-2); RBC Urine 0-2 /HPF (0-2); Squamous Epithelial Cell Urine 0-2 /HPF (0-2); UACC Culture Trigger YES
--- NOTE | 2023-01-19 14:04 | PHA.MEDREC ---
Pharmacy Consult ? Medication Reconciliation Pharmacy has completed the medication reconciliation.
[2023-01-19] MEDS: amLODIPine Besylate 5 MG TABLET PO (14:45)
--- NOTE | 2023-01-19 15:04 | PC.NURSE ---
abx delayed do to pt being a hard stick and having difficulties obtaining cultures
--- NOTE | 2023-01-19 15:17 | P.HPHOSP_ITS ---
History of Present Illness Date of Service: 01/19/23 Attending physician on admission: Steven Colin Chief Complaint: Blood in right eye Pt is a 62-year-old female with a PMH significant for?non-insulin dependent diabetes type 2, mood disorder, mild intermittent asthma, diabetic polyneuro carmelina, diabetic poly retinopathy, HLD, GERD, and hx of multiple CVAs who presents to the ED with?blood in her right eye since this morning. Pt with an extensive hx of prior CVAs on aspirin, Plavix, and atorvastatin. Pt admitted to the hospital in October 2022 for likely TIA and started on Plavix at discharge. When patient awoke this morning at 09:00 was noted to have blood in her right eye which was not noted earlier in the morning when patient used the restroom. Patient denies any pain or trauma to the area but states her vision seems more blurry than normal. Patient's family worried that she had another stroke which prompted her visit to the ED. Family did notice bilateral leg weakness below baseline, but no changes to speech, no one-sided deficits. Patient with chronic right sided facial droop at baseline. Pt denies recent fall. No headache, diplopia. Denies chest pain/pressure, palpitations. In the ED pt was afebrile but hypertensive up to 207/76. Labs were significant for AST of 34 and alk-phos 283. UA negative for UTI. CXR showed no acute cardiopulmonary process. CT?head showed no acute intracranial pathology. CTA of head and neck showed moderate to severe stenosis of cavernous segments of both internal carotid arteries greater on the right, and numerous chronic small v essel ischemic changes within the periventricular white matter, basal ganglia, and liana. EKG demonstrated normal sinus rhythm without evidence of ST elevations or depressions. Pt was treated with amlodipine and ceftriaxone. Pt will be admitted to the hospital under observation on telemetry for hypertensive urgency. Review of Systems Review of Systems: Blood in right eye Right-eye blurriness Worsening lower leg weakness Chronic right-sided facial droop Chronic global weakness No chest pain/pressure, palpitations Denies fever, chills, nausea, vomiting, abdominal pain Yes all other systems are reviewed and are negative [facility] Medical History BOB positive Asthma Cervical osteoarthritis CVA (cerebral vascular accident) Diabetes type 2, uncontrolled Diabetic polyneuropathy associated with type 2 diabetes mellitus Diabetic retinopathy associated with type 2 diabetes mellitus Dyslipidemia Fatty liver disease, nonalcoholic GERD (gastroesophageal reflux disease) History of CVA (cerebrovascular accident) History of sleep apnea History of umbilical hernia HTN (hypertension) Hypertension Hypertension Hypoglycemia after GI (gastrointestinal) surgery Osteoarthritis of right glenohumeral joint Postural hypotension Primary biliary cholangitis Shoulder pain, right Sjogrens syndrome Subclinical hypothyroidism Family History Father [place] (myocardial infarction) Diabetes mellitus Mother Diabetes mellitus CVA (cerebral vascular accident) Maternal Grandmother Stomach cancer Sister Hemorrhagic cerebrovascular accident (CVA) Surgical History History of carpal tunnel release History of esophagogastroduodenoscopy (EGD) History of laparoscopic appendectomy History of partial hysterectomy Hx of section Hx of colonoscopy Hx of dilation and curettage Hx of gastric bypass Hx of tonsillectomy Social History Household Members: Spouse Housing: House Are you a primary animal care technician to a significant other at home: No Do you presently have visiting nurse or other home services: Yes (Pt requires 24 hour care, She has a VNA nurse but no HAND MIXER yet in the house) Alcohol intake: never Patient Tobacco Use Status: Never used Tobacco Smoked in Last 30 Days: No e-Cigarette/Vaping Use: Never Used Second Hand Smoke Exposure: No Use of substances other than those prescribed or required for medical reasons: No Currently Displaying Signs/Symptoms of Drug Intoxication Withdrawal: No Have you been hit, kicked, punched, or otherwise hurt by someone within the past year? If so, by whom?: No Do you feel safe in your current relationship?: Yes Christian Healthcare Practices: Orthodox Advance Directives: No Advance Directives Information Provided: Yes (Medical Condition) Advance Directives Date on File: 07/10/99 Do you have thoughts of harming others: None Recently lost weight without trying: No Nutrition Risks: Dental problems Patient : No service: No Current occupational status: disabled Cognitive needs: Yes (wheelchait) Hearing needs: No Vision needs: No Meds Allergies Allergy/AdvReac Type Severity Reaction Status Date / Time Latex, Natural Rubber Allergy Intermediate Rash Verified 12/12/22 14:02 Sulfa (Sulfonamide AdvReac Intermediate Stomach Verified 12/12/22 14:02 Antibiotics) Upset [SULFA (SULFONAMIDE ANTIBIOTICS)] Morphine Sulfate AdvReac Intermediate Abdominal Uncoded 12/12/22 13:51 Pain Active Medications: Current Medications Pharmacy Consult (Consult Rx Perform Med Rec) 1 each MISCELLANE ONCE PRN PRN Reason: Consult order Home Medications Medication Instructions Recorded Confirmed Last Taken Type albuterol sulfate 90 mcg/actuation 1 inh inhalation QID PRN Shortness 04/28/20 01/19/23 Unknown History aerosol inhaler Of Breath Or Wheezing polyethylene glycol 3350 17 gram 17 g PO DAILY PRN constipation 10/25/22 01/19/23 10/25/22 History oral powder packet (Purelax) metformin 500 mg tablet 500 mg PO DAILY@0730 01/19/23 01/19/23 Unknown History Physical Exam Vital Signs and Narrative: Vital Signs: Last Vital Signs Temp 97.7 F 01/19/23 14:32 Pulse 61 01/19/23 14:43 Resp 20 01/19/23 14:32 BP 186/65 H 01/19/23 14:43 Pulse Ox 98 01/19/23 14:43 O2 Del Method Room Air 01/19/23 14:43 BMI result Body Mass Index 21.5 Constitutional: Alert, in no acute distress. Mental Status: Oriented to person, place, and situation but not to time. Eyes: Pupils are equal, round, and reactive to light. Subconjunctival hemo rrhage of right eye. See pictures below. Ear, Nose, and Throat: Oropharynx clear, mucous membranes moist. Ears and nose without deformities. Trachea midline. Poor dentition. Respiratory: Clear to auscultation bilaterally. No wheezing, rales, or rhonchi. Cardiovascular: S1, S2 regular. No murmurs, rubs, or gallops. Gastrointestinal: Abdomen soft, non-tender, non-distended. Normal bowel sounds. Neurologic: Cranial nerves II-XII are grossly intact bilaterally. Moves all ex tremities spontaneously. Chronic right-sided facial droop. Global extremity weakness, 3/5 strength of upper extremities bilaterally, 1/5 stength of lower extremities bilaterally Skin: No rashes or lesions noted. Musculoskeletal: No cyanosis or clubbing. Extremities: No edema. Psychiatric: Normal mood and affect. Results Labs 01/19/23 10:44 01/19/23 11:34 Labs: Laboratory Results - last 24 hr 01/19/23 01/19/23 01/19/23 10:44 10:44 10:44 MCV 80.9 MCH 24.8 L MCHC 30.7 L RDW 15.9 Plt Count 287 MPV 12.8 H Immature Gran % (Auto) 0.5 H Neut % (Auto) 51.9 Lymph % (Auto) 36.3 [place] % (Auto) 7.3 Eos % (Auto) 3.5 Baso % (Auto) 0.5 Lymph # (Auto) 2.1 [place] # (Auto) 0.4 Eos # (Auto) 0.2 Baso # (Auto) 0.0 Abs Immat Gran (auto) 0.03 Absolute Neuts (auto) 2.9 Absolute Nucleated RBC 0.000 Nucleated RBC % (auto) 0.0 PT 12.5 Whole Blood PT INR 1.1 Whole Blood INR APTT 37.5 H Anion Gap Estim Creat Clear Calc Estimated GFR POC Glucose Random Glucose 121 H Calcium Phosphorus Magnesium Total Bilirubin Direct Bilirubin AST ALT Alkaline Phosphatase Total Creatine Kinase Troponin I High Sens Total Protein Albumin Urine Color Urine Appearance Urine pH Ur Specific [place] Urine Protein Urine Glucose (UA) Urine Ketones Urine Blood Urine Nitrite Ur Leukocyte Esterase Urine RBC Urine WBC Ur Squamous Epith Cells Urine Bacteria Hyaline Casts 01/19/23 01/19/23 01/19/23 10:44 11:00 11:00 MCV MCH MCHC RDW Plt Count MPV Immature Gran % (Auto) Neut % (Auto) Lymph % (Auto) [place] % (Auto) Eos % (Auto) Baso % (Auto) Lymph # (Auto) [place] # (Auto) Eos # (Auto) Baso # (Auto) Abs Immat Gran (auto) Absolute Neuts (auto) Absolute Nucleated RBC Nucleated RBC % (auto) PT Whole Blood PT 14.7 H INR Whole Blood INR 1.2 H APTT Anion Gap Estim Creat Clear Calc Estimated GFR POC Glucose 124 H Random Glucose Calcium Phosphorus Magnesium Total Bilirubin Direct Bilirubin AST ALT Alkaline Phosphatase Total Creatine Kinase Troponin I High Sens < 2.7 Total Protein Albumin Urine Color Urine Appearance Urine pH Ur Specific [place] Urine Protein Urine Glucose (UA) Urine Ketones Urine Blood Urine Nitrite Ur Leukocyte Esterase Urine RBC Urine WBC Ur Squamous Epith Cells Urine Bacteria Hyaline Casts 01/19/23 01/19/23 11:34 13:17 MCV MCH MCHC RDW Plt Count MPV Immature Gran % (Auto) Neut % (Auto) Lymph % (Auto) [place] % (Auto) Eos % (Auto) Baso % (Auto) Lymph # (Auto) [place] # (Auto) Eos # (Auto) Baso # (Auto) Abs Immat Gran (auto) Absolute Neuts (auto) Absolute Nucleated RBC Nucleated RBC % (auto) PT Whole Blood PT INR Whole Blood INR APTT Anion Gap 12 Estim Creat Clear Calc 57.9 Estimated GFR > 60 POC Glucose Random Glucose 123 H Calcium 9.8 D Phosphorus 3.8 Magnesium 1.7 Total Bilirubin 0.3 Direct Bilirubin 0.1 AST 34 H ALT 28 Alkaline Phosphatase 283 H Total Creatine Kinase 58 Troponin I High Sens Total Protein 7.9 Albumin 3.6 Urine Color Yellow Urine Appearance Clear Urine pH 7.0 Ur Specific [place] 1.025 Urine Protein Negative Urine Glucose (UA) Negative Urine Ketones Negative Urine Blood Negative Urine Nitrite Negative Ur Leukocyte Esterase Trace H Urine RBC 0-2 Urine WBC 6-10 H Ur Squamous Epith Cells 0-2 Urine Bacteria 2+ Hyaline Casts 0-2 Imaging Radiologist's Impressions: Impressions Head CT 01/19/23 10:50 IMPRESSION: No acute intracranial pathology. Head/Neck CTA 01/19/23 11:07 IMPRESSION: Atheromatous calcification causes moderate to severe stenosis of the cavernous segments of both internal carotid arteries, greater on the right. Otherwise no intracranial large vessel occlusion. No stenosis of the cervical carotid or vertebral arteries. There are numerous chronic small vessel ischemic changes within the periventricular white matter, basal ganglia, and liana that are better depicted on MR imaging of the brain from 10/26/2022. Grossly no subacute territorial infarct or hemorrhage. Chest X-Ray 01/19/23 11:25 IMPRESSION: No acute cardiopulmonary process. Assessment and Plan (1) Hypertensive urgency: Status: Resolved (2) Subconjunctival hemorrhage of right eye: Status: Acute Plan Pt is a 62-year-old female with a PMH significant for?non-insulin dependent diabetes type 2, mood disorder, mild intermittent asthma, diabetic polyneuropathy, diabetic poly retinopathy, HLD, GERD, and hx of multiple CVAs who presents to the ED with?blood in her right eye since this morning. Pt will be admitted to the hospital under observation on telemetry for hypertensive urgency. Hypertensive emergency Pt's BP 207/76 at time of presentation, currently at 186/65 Pt not on any home antihypertensives Will start on amlodipine 5 mg q.d. and losartan 25 mg qd Monitor BP closely Monitor on telemetry Subconjuctival hemorrage of right eye Likely multifactorial: Patient on dual anti-platelet therapy, with uncontrolled hypertension Hold aspirin and Plavix Treat HTN as above History of CVA 10/2020 CTA of head and neck negative for acute intracranial pathology Patient with no new stroke-like symptoms today Hold aspirin and Plavix for now d/t subconjunctival hemorrhage Continue statin Enl-kbvozmc-gdnjujnhg type 2 diabetes Hold metformin Sliding-scale insulin Diabetic diet Mild intermittent asthma-without acute exacerbation Albuterol p.r.n. Mood disorder Continue home meds Full Code Attending:?Dr. Colin DVT Prophylaxis: Compression boots Patient be admitted to the hospital under observation on telemetry for treatment and further evaluation of hypertensive urgency. Time Spent With Patient Time: Total time managing care of this patient today ____ minutes. Quality Stroke Does the patient have a stroke diagnosis?: Yes Reason for No Anti-thrombotic by Day Two: Contraindicated (Outside of therapeutic window) VTE Prior VTE?: No VTE Risk Level:: Medical - moderate - high VTE Device Contraindication: N/A - Device Ordered VTE Drug Contraindication: Treatment Not Indicated
[2023-01-19 16:03] LABS: Lactic Acid 1.1 mmol/L (0.5-2.0)
[2023-01-19] MEDS: cefTRIAXone sodium 1 GM in 0.9 % Sodium Chloride 50 ML IV (16:28)
[2023-01-19] MEDS: Losartan Potassium 25 MG TABLET PO (17:17)
[2023-01-19] MEDS: 0.9 % Sodium Chloride Flush 3 ML SYRINGE IVFLUSH ×2 (17:20→22:28)
--- NOTE | 2023-01-19 18:19 | PC.NURSE ---
report given to [facility] nurse
[2023-01-19 20:11] LABS: Glucose, Whole Blood 258 mg/dL (60-115)
[2023-01-19] MEDS: Atorvastatin Calcium 40 MG TABLET PO (22:27)
[2023-01-19] MEDS: risperiDONE 1 MG TABLET PO (22:27)
[2023-01-19] MEDS: Loratadine 10 MG TABLET PO (22:27)
[2023-01-19] MEDS: Insulin Lispro 100 UNIT/ML 3 ML VIAL SUBCUT (22:28)
[2023-01-19] MEDS: Sennosides 8.6 MG TABLET 17.2 MG PO (22:28)
--- NOTE | 2023-01-19 23:40 | PM.EVENT ---
Event Note Date of Service: 01/19/23 Event Note: patient failed bedside swallow, will consult speech therapy Time Spent With Patient Time: Total time managing care of this patient today ____ minutes.
[2023-01-20 04:00] VITALS: BP 118/54; PULSE 59; RESP 16; TEMP 36.2; O2SAT 97
--- NOTE | 2023-01-20 04:24 | PC.NURSE ---
Assumed care for patient at approx 1855, pt arrived to unit from ED via stretcher. A&Ox2/3. at bedside for admission. Mongolian speaking but able to understand questions and make needs known. Right eye noted with blood shot sclera, right sided facial droop, and moderate weakness throughout noted on admission. Bedside swallow eval performed, pt able to tolerate liquids a teaspoon at a time while on a spoon however when given cup of water to drink patient began coughing after 1 sip. MD notified and patient made NPO. Was able to take meds crushed in applesauce without incident. Denies pain or discomfort. Sinus Kevin on reinsurance clerk. Call cadleron within reach. Bed in lowest locked position.
[2023-01-20 07:02] LABS: Anion Gap 14 (12-20); Blood Urea Nitrogen 21 mg/dL (9-16); Calcium 9.6 mg/dL (8.4-10.2); Carbon Dioxide 27 mmol/L (22-29); Chloride 105 mmol/L (96-108); Creatinine Clr Calc Pharmacy 49.2; Estimated Glomerular Filt Rate > 60; Glucose Random 116 mg/dL (60-115); Potassium 4.8 mmol/L (3.3-5.1); Sodium 141 mmol/L (135-145)
[2023-01-20 07:04] LABS: Hematocrit 33.8 % (37.0-47.0); Hemoglobin 10.7 g/dl (12.0-16.0); Mean Corpuscular HGB Conc 31.7 g/dl (31.0-35.0); Mean Corpuscular Hemoglobin 25.1 pg (27.0-33.0); Mean Corpuscular Volume 79.3 fL (80.0-98.0); Mean Platelet Volume 13.2 fL (9.4-12.3); Platelet Count 249 X10*3/uL (160-400); Red Blood Count 4.26 X10*6/uL (4.20-5.50); Red Cell Distribution Width 15.9 % (11.0-16.0); White Blood Count 9.1 X10*3/uL (4.8-10.8)
[2023-01-20 07:46] VITALS: BP 135/70; PULSE 61; RESP 18; TEMP 36.2; O2SAT 97
[2023-01-20 07:56] LABS: Glucose, Whole Blood 123 mg/dL (60-115)
[2023-01-20] MEDS: Losartan Potassium 25 MG TABLET 12.5 MG PO (09:04)
[2023-01-20] MEDS: amLODIPine Besylate 5 MG TABLET PO (09:04)
[2023-01-20] MEDS: Cholecalciferol (Vitamin D3) 25 MCG TABLET 50 MCG PO (09:06)
[2023-01-20] MEDS: Multivitamin TABLET 1 TAB PO (09:06)
[2023-01-20] MEDS: Sertraline HCL 100 MG TABLET 200 MG PO (09:06)
[2023-01-20 11:26] VITALS: BP 129/62; PULSE 60; RESP 18; TEMP 36.1; O2SAT 97
[2023-01-20 11:27] LABS: Glucose, Whole Blood 170 mg/dL (60-115)
--- NOTE | 2023-01-20 11:29 | MHC.SL.SWA ---
Speech Pathologist Impression: Risk of Aspiration Due to: Neurological Condition Dysphasia Diet Status: Pt w/ significant R-facial droop, missing teeth. Recommend GROUND/MECH ALTERED (NDD2) solids, [place] thick liquids (NO STRAW), pills CRUSHED in PUREE. Pt w/ R-side weakness, requires assistance preparing tray, opening/handing containers. Recommend total 1:1 supervision, provide assistance as needed throughout meals. Ensure aspiration precautions. Liquid Consistency and Strategies for Safe Swallow: Liquid Intake Recommendation: [place] Thick Liquid Intake Strategies: Small Sips No Straws Solid Food Consistency: Dietary Recommendations: Grnd/Mech Altered (NDD2) Additional Modifications to Solid Foods: Avoid mixed consistencies, add sauces and gravies and mix well. Patient would benefit from supervision during meals: Patient can feed self but has unilateral right weakness and may have difficulty at times coordinating movements and is at risk for spilling. [place] thick liquids by cup sip only, no straws. Assure that tray is well set up for patient and all foods and liquids are readily accessible. Oral Medication Intake: Crushed with Puree Please contact the pharmacy regarding appropriate crushable or liquid drug formulations that are available whenever modified delivery is recommended. Compensatory Strategies and Precautions to be Taken for Safe Swallow: Sitting Upright (90 deg) No Straw Liquids from Cup Small Bites and Sips Alternate Liquids/Solids Supervision While Eating and Drinking for Safe Swallow: Total Supervision (1:1) Foods to Avoid: Mixed consistencies, tough, difficulty to chew solids. Swallowing Recommended Treatments: Compens. Strategy Educat. Recommendation for Speech: Comment: Patient presents with a mild to moderate oralpharyngeal dysphagia, characterized by mild unilateral right weakness with facial droop, missing/scattered dentition, mildly reduced laryngeal elevation on swallow. Recommend start diet of Ground Mechanical Altered (NDD2) with NECT[place] THICK liquids (no straw, cup sip only), pills crushed in puree. Patient can independently self feed but will need supervision during meals to assure that all foods and liquids on tray are readily accessible, patient is able to use utensils effectively to feed self, and patient is progressing without spillage or frustration during meal. RN notified of recommendations in person, MD RD by secure text. OPTICAL STORE MANAGER will continue to follow for toleration of diet, re-asess swallow for possible upgrade. White board changed in room to reflect recommendations. Frequency/Duration: Date Range for Service Req: Timeline to reassess: Parts Professional Clinican/Clinical Fellow: No Supervisory Statement: I have reviewed and agree with the student/clinical fellow's documentation: N/A Speech Language Pathologist: Елена Dee M.A., CCC-OPTICAL STORE MANAGER
[2023-01-20] MEDS: Insulin Lispro 100 UNIT/ML 3 ML VIAL SUBCUT ×3 (11:58→21:32)
[2023-01-20] MEDS: Artificial Tears 15 ML DROPS 2 DROP EYE-RIGHT ×3 (11:59→21:28)
--- NOTE | 2023-01-20 13:16 | MHC.CM.PN ---
Addendum entered by Hailey Leone 01/20/23 13:23: Pts daughter/HCP is Maddie [phone] Original Note: FOX 01/20. Pt SSO, admitted with hypertensive emergency. Pt lives at home with her , she uses a walker and w/c. Pt has a DRIVER LICENSE TECHNICIAN for 7 hours/day, and international VNA. D/C plan will be to return home with resumption of DRIVER LICENSE TECHNICIAN/VNA. Pts family will transport. Pts daughter/HCP present, copy of HCP requested. PCP: Ludy Lundberg vax: x [phone]
--- NOTE | 2023-01-20 13:56 | P.PNIM_ITS ---
Subjective Subjective Date of Service: 01/20/23 Interval History: Seen and evaluated Feels better BP controlled less hematomoa in rt eye failed swallowing screening Review of Systems Review of Systems: Yes all other systems are reviewed and are negative Physical Exam Vital Signs: Vital Signs: Last Vital Signs Temp 97.0 F 01/20/23 11:26 Pulse 60 01/20/23 11:26 Resp 18 01/20/23 11:26 BP 129/62 01/20/23 11:26 Pulse Ox 97 01/20/23 11:26 O2 Del Method Room Air 01/20/23 11:26 BMI result Body Mass Index 21.9 Const: Other: Constitutional : Awake, interactive, not in distress Eyes: normal LT, Rt eye with conjunctival bleed and hematoma, smaller in size, normal vision Neck : Normal inspection, Supple Cardiovascular : RRR, no JVP, no lower extremity edema Respiratory : good bilateral air entry, no crackles, wheezes or rhonchi Gastrointestinal: soft, lax, Normal bowel sounds, Non tender Skin : Warm, Dry Neurological : Alert & oriented x3, overall weakness with no specific laterality, slow speech but clear, no other focal deficit Objective Data Active Medications Acetaminophen (Acetaminophen 325 Mg Tablet) 650 mg PO Q6H PRN PRN Reason: Pain, Mild (Pain Scale 1-3) Albuterol Sulfate (Albuterol Sulfate 90 Mcg 8 Gm Inhaler) 1 puff INHALE QID PRN PRN Reason: Shortness Of Breath Or Wheezing Amlodipine Besylate (Amlodipine Besylate 5 Mg Tablet) 5 mg PO DAILY SHARON; Protocol Last Admin: 01/20/23 09:04 Dose: 5 mg Documented By: ARIANA Artificial Tears (Artificial Tears 15 Ml Drops) 2 drop EYE-RIGHT Q4H PENDING SALE TO [facility] Last Admin: 01/20/23 11:59 Dose: 2 drop Documented By: JOYCE Atorvastatin Calcium (Atorvastatin Calcium 40 Mg Tablet) 40 mg PO BEDTIME PENDING SALE TO [facility] Last Admin: 01/19/23 22:27 Dose: 40 mg Documented By: YAYA Dextrose (Dextrose 50 % 25 Gm/50 Ml Syringe) 25 gm IVPUSH Q15M PRN; Protocol PRN Reason: per Hypoglycemia Standing Ord. Glucose (Glucose Gel 15 Gm Gel..Gram.) 15 gm PO Q15M PRN; Protocol PRN Reason: per Hypoglycemia Standing Ord. Insulin Human Lispro (Insulin Lispro 100 Unit/Ml 3 Ml Vial) 0 unit SUBCUT QIDACHS PENDING SALE TO [facility]; Protocol Last Admin: 01/20/23 11:58 Dose: 2 unit Documented By: JOYCE Loratadine (Loratadine 10 Mg Tablet) 10 mg PO BEDTIME PENDING SALE TO [facility] Last Admin: 01/19/23 22:27 Dose: 10 mg Documented By: YAYA Losartan Potassium (Losartan Potassium 25 Mg Tablet) 12.5 mg PO DAILY PENDING SALE TO [facility]; Protocol Last Admin: 01/20/23 09:04 Dose: 12.5 mg Documented By: ARIANA Multivitamins/Vitamin C (Multivitamin Tablet) 1 tab PO DAILY PENDING SALE TO [facility] Last Admin: 01/20/23 09:06 Dose: 1 tab Documented By: ARIANA Ondansetron HCl (Ondansetron Hcl 4 Mg/2 Ml Vial) 4 mg IVPUSH Q8H PRN PRN Reason: Nausea and Vomiting Pharmacy Consult (Consult Rx Perform Med Rec) 1 each MISCELLANE ONCE PRN PRN Reason: Consult order Polyethylene Glycol (Polyethylene Glycol 3350 17 Gm Powd.Pack) 17 gm PO DAILY PRN PRN Reason: constipation Risperidone (Risperidone 1 Mg Tablet) 1 mg PO BEDTIME PENDING SALE TO [facility] Last Admin: 01/19/23 22:27 Dose: 1 mg Documented By: YAYA Senna (Sennosides 8.6 Mg Tablet) 17.2 mg PO BEDTIME PENDING SALE TO [facility] Last Admin: 01/19/23 22:28 Dose: 17.2 mg Documented By: YAYA Sertraline HCl (Sertraline Hcl 100 Mg Tablet) 200 mg PO DAILY PENDING SALE TO [facility] Last Admin: 01/20/23 09:06 Dose: 200 mg Documented By: ARIANA Sodium Chloride (0.9 % Sodium Chloride Flush 3 Ml Syringe) [facility] Last Admin: 01/19/23 22:28 Dose: 3 ml Documented By: YAYA Vitamin D (Cholecalciferol (Vitamin D3) 25 Mcg Tablet) 50 mcg PO DAILY PENDING SALE TO [facility] Last Admin: 01/20/23 09:06 Dose: 50 mcg Documented By: ARIANA Labs 01/20/23 06:10 01/20/23 06:10 Labs: Laboratory Results - last 24 hr 01/19/23 01/19/23 01/20/23 15:34 20:08 06:10 MCV 79.3 L MCH 25.1 L MCHC 31.7 RDW 15.9 Plt Count 249 MPV 13.2 H Absolute Nucleated RBC 0.000 Nucleated RBC % (auto) 0.0 Anion Gap Estim Creat Clear Calc Estimated GFR POC Glucose 258 H Random Glucose Lactic Acid 1.1 Calcium 01/20/23 01/20/23 01/20/23 06:10 07:49 11:22 MCV MCH MCHC RDW Plt Count MPV Absolute Nucleated RBC Nucleated RBC % (auto) Anion Gap 14 Estim Creat Clear Calc 49.2 Estimated GFR > 60 POC Glucose 123 H 170 H Random Glucose 116 H Lactic Acid Calcium 9.6 Microbiology Microbiology Results: Microbiology 01/19/23 Unknown Urine Culture - Preliminary Urine clean catch - Urine alvarez top Enterococcus/Streptococcus sp Assessment and Plan (1) Subconjunctival hemorrhage of right eye: Status: Acute (2) Dysphagia: Status: Acute (3) Hypertensive urgency: Status: Resolved Plan Pt is a 62-year-old female with a PMH significant for?non-insulin dependent diabetes type 2, mood disorder, mild intermittent asthma, diabetic polyneuropathy, diabetic poly retinopathy, HLD, GERD, and hx of multiple CVAs who presents to the ED with?blood in her right eye since this morning. Pt will be admitted to the hospital under observation on telemetry for hypertensive urgency. Hypertensive emergency Better controlled now continue amlodipine 5 mg q.d. and losartan 12.5 mg qd Monitor BP closely Subconjuctival hemorrage of right eye 2/2 dual anti-platelet therapy, with uncontrolled hypertension Hold aspirin and Plavix Treat HTN as above eye drops Dysphagia chronic problem per the patient mainly for liquids [employer] rec NDD2 w nectar thick fluids History of CVA 10/2020 CTA of head and neck negative for acute intracranial pathology Patient with no new stroke-like symptoms Hold aspirin and Plavix for now d/t subconjunctival hemorrhage Continue statin Ksa-divmafa-vllsqvhwc type 2 diabetes Hold metformin Sliding-scale insulin Diabetic diet Mild intermittent asthma-without acute exacerbation Albuterol p.r.n. Mood disorder Continue home meds Full Code DVT Prophylaxis: Compression boots Patient be admitted to the hospital under observation on telemetry for treatment and further evaluation of hypertensive urgency. Time Spent With Patient Time: Total time managing care of this patient today ____ minutes. Quality Stroke Does the patient have a stroke diagnosis?: Yes Reason for No Anti-thrombotic by Day Two: Contraindicated (Outside of therapeutic window) VTE Prior VTE?: No VTE Risk Level:: Medical - moderate - high VTE Device Contraindication: N/A - Device Ordered VTE Drug Contraindication: Treatment Not Indicated
[2023-01-20 15:23] VITALS: BP 129/62; PULSE 66; RESP 18; TEMP 36; O2SAT 100
[2023-01-20 16:14] LABS: Glucose, Whole Blood 296 mg/dL (60-115)
[2023-01-20] MEDS: 0.9 % Sodium Chloride Flush 3 ML SYRINGE IVFLUSH ×2 (17:05→21:28)
[2023-01-20 19:52] VITALS: BP 137/51; PULSE 68; RESP 18; TEMP 36.1; O2SAT 95
[2023-01-20 20:09] LABS: Glucose, Whole Blood 212 mg/dL (60-115)
[2023-01-20] MEDS: Sennosides 8.6 MG TABLET 17.2 MG PO (21:27)
[2023-01-20] MEDS: risperiDONE 1 MG TABLET PO (21:27)
[2023-01-20] MEDS: Acetaminophen 325 MG TABLET 650 MG PO (21:27)
[2023-01-20] MEDS: Loratadine 10 MG TABLET PO (21:27)
[2023-01-20] MEDS: Atorvastatin Calcium 40 MG TABLET PO (21:27)
[2023-01-20 23:32] VITALS: BP 100/60; PULSE 62; RESP 18; TEMP 36.1; O2SAT 96
[2023-01-21 03:44] VITALS: BP 127/65; PULSE 62; RESP 18; TEMP 36.2; O2SAT 96
[2023-01-21] MEDS: Artificial Tears 15 ML DROPS 2 DROP EYE-RIGHT ×3 (05:50→12:12)
[2023-01-21 07:06] LABS: Glucose, Whole Blood 164 mg/dL (60-115)
[2023-01-21] MEDS: Sertraline HCL 100 MG TABLET 200 MG PO (07:37)
[2023-01-21] MEDS: Losartan Potassium 25 MG TABLET 12.5 MG PO (07:38)
[2023-01-21] MEDS: Multivitamin TABLET 1 TAB PO (07:38)
[2023-01-21] MEDS: amLODIPine Besylate 5 MG TABLET PO (07:38)
[2023-01-21] MEDS: Cholecalciferol (Vitamin D3) 25 MCG TABLET 50 MCG PO (07:38)
[2023-01-21] MEDS: 0.9 % Sodium Chloride Flush 3 ML SYRINGE IVFLUSH (07:39)
[2023-01-21] MEDS: Insulin Lispro 100 UNIT/ML 3 ML VIAL SUBCUT ×2 (07:39→12:06)
[2023-01-21 07:51] VITALS: BP 121/60; PULSE 62; RESP 16; TEMP 36; O2SAT 97
[2023-01-21 11:17] VITALS: BP 141/57; PULSE 66; RESP 21; TEMP 36.4; O2SAT 96
[2023-01-21 11:42] LABS: Glucose, Whole Blood 337 mg/dL (60-115)
--- NOTE | 2023-01-21 12:27 | PM.DS ---
DS: Providers Provider Date of Service: 01/21/23 Date of admission: 01/19/23 16:33 Primary care physician: Ludy Alonso MD DS: Diagnosis Discharge Diagnosis (1) Subconjunctival hemorrhage of right eye: Status: Acute (2) Dysphagia: Status: Acute (3) Hypertensive urgency: Status: Resolved DS: Summary Hospital Course Hospital Course: Admission note HPI Pt is a 62-year-old female with a PMH significant for?non-insulin dependent diabetes type 2, mood disorder, mild intermittent asthma, diabetic polyneuropathy, diabetic poly retinopathy, HLD, GERD, and hx of multiple CVAs who presents to the ED with?blood in her right eye since this morning. Pt with an extensive hx of prior CVAs on aspirin, Plavix, and atorvastatin. Pt admitted to the hospital in October 2022 for likely TIA and started on Plavix at discharge. When patient awoke this morning at 09:00 was noted to have blood in her right eye which was not noted earlier in the morning when patient used the restroom.? Patient denies any pain or trauma to the area but states her vision seems more blurry than normal.? Patient's family worried that she had another stroke which prompted her visit to the ED. Family did notice bilateral leg weakness below baseline, but no changes to speech, no one-sided deficits. Patient with chronic right sided facial droop at baseline. Pt denies recent fall. No headache, diplopia. Denies chest pain/pressure, palpitations. In the ED pt was afebrile but hypertensive up to 207/76. Labs were significant for AST of 34 and alk-phos 283.? UA negative for UTI. CXR showed no acute cardiopulmonary process. CT?head showed no acute intracranial pathology.? CTA of head and neck showed moderate to severe stenosis of cavernous segments of both internal carotid arteries greater on the right, and numerous chronic small vessel ischemic changes within the periventricular white matter, basal ganglia, and liana. EKG demonstrated normal sinus rhythm without evidence of ST elevations or depressions. Pt was treated with amlodipine and ceftriaxone. Pt will be admitted to the hospital under observation on telemetry for hypertensive urgency. Hospital course The patient was admitted for treatment of hypertensive urgency with elevates SBP >200. responded well to oral therapy of Amlodipine and Losartan. To be followed as outpatient. No evidence of new focal deficit to suggest CVA as CT scan came back negative for any new findings. she primarly came to the hospital for right eye bleeding with no reported pain or loss of vision. found to have Subconjuctival hemorrage of right eye with small hematoma formation 2/2 dual anti-platelet therapy, with uncontrolled hypertension. Both aspirin and Plavix were held with partial resolution of the hemorrhage. started on lubricant eye drops. Advised to follow with opthalmologist as outpatient. Evaluated for Dysphagia which is a chronic problem. 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 Family aware. Restart Aspirin, Hold Plavix for the next week Follow with ophthalmology as outpatient Start Amlodipine and Losartan as prescribed, check Blood pressure 3 times daily and report 1 week readings to PCP for further adjustments of medication. Use eye drops as prescribed apply cold compressors to the right eye Time Spent with Patient Time attestation: Total time managing care of this patient today ____ minutes. Discharge coordination time: Less than 30 minutes Quality: Safe Use of Opioids Does Pt have an Active Cancer Diagnosis on the Problem List?: No Quality: Stroke Does the patient have a stroke diagnosis?: No Physical Exam Vital Signs: Vital Signs: Last Vital Signs Temp 97.5 F 01/21/23 11:17 Pulse 66 01/21/23 11:17 Resp 21 H 01/21/23 11:17 BP 141/57 H 01/21/23 11:17 Pulse Ox 96 01/21/23 11:17 O2 Del Method Room Air 01/21/23 11:17 BMI result Body Mass Index 21.9 Const: Other: Constitutional : Awake, interactive, not in distress Eyes: normal LT, Rt eye with conjunctival bleed and small hematoma which is getting smaller with partial resolution of hemorrhage, normal vision , no tenderness Neck : Normal inspection, Supple Cardiovascular : RRR, no JVP, no lower extremity edema Respiratory : good bilateral air entry, no crackles, wheezes or rhonchi Gastrointestinal: soft, lax, Normal bowel sounds, Non tender Skin : Warm, Dry Neurological : Alert & oriented x3, overall weakness with no specific laterality, slow speech but clear, no other focal deficit DS: Data Data Completed and Pending Labs on day of discharge: Laboratory Results - last 24 hr 01/20/23 01/20/23 01/21/23 16:05 19:54 07:02 POC Glucose 296 H 212 H 164 H 01/21/23 11:38 POC Glucose 337 H Preliminary micro results at discharge 01/19/23 16:27 Blood Culture - Preliminary Blood - Venous No growth after 24 hours. 01/19/23 15:34 Blood Culture - Preliminary Blood - Venous No growth after [address] scan - head: Radiologist's impression: ITS Impressions Head CT 01/19/23 10:50 IMPRESSION: No acute intracranial pathology. Head/Neck CTA 01/19/23 11:07 IMPRESSION: Atheromatous calcification causes moderate to severe stenosis of the cavernous segments of both internal carotid arteries, greater on the right. Otherwise no intracranial large vessel occlusion. No stenosis of the cervical carotid or vertebral arteries. There are numerous chronic small vessel ischemic changes within the periventricular white matter, basal ganglia, and liana that are better depicted on MR imaging of the brain from 10/26/2022. Grossly no subacute territorial infarct or hemorrhage. Chest X-Ray 01/19/23 11:25 IMPRESSION: No acute cardiopulmonary process. Discharge Plan Discharge Anticipated Discharge Date/Time: 01/21/23 12:11 Patient Disposition: Home, Self-Care Discharge Diagnosis: Hypertensive urgency Right eye conjunctival hemorrhage Referrals: Po,Ludy Minaya MD [Primary Care Provider] - 1 Week Discharge Medications: New amlodipine 5 mg Tablet 5 mg PO DAILY Qty: 90 0RF Protocol: Hold for SBP< HOLD for SBP < : 90 losartan 25 mg Tablet 12.5 mg PO DAILY Qty: 90 0RF Protocol: Hold for SBP< HOLD for SBP < : 90 Artificial Tears(we-medm-yvbt) 1-0.2-0.2 % Drops 2 drp ophthalmic-Right Q4H Qty: 15 2RF Continued (DME) Transport wheelchair See Rx Instructions .Route .MEDSUPPLY Qty: 1 0RF Rx Instructions: As directed multivitamin Tablet 1 tab PO DAILY 90 Days Qty: 90 3RF (DME) lancets [FreeStyle Lancets] 28 gauge misc See Rx Instructions .ROUTE .MEDSUPPLY Qty: 100 3RF Rx Instructions: As directed check the blood sugar once a day cholecalciferol (vitamin D3) 50 mcg (2,000 unit) capsule 50 mcg PO DAILY 30 Days Qty: 30 11RF aspirin 81 mg tablet,delayed release (DR/EC) 81 mg PO DAILY Qty: 90 3RF (DME) adult diapers size small petite See Rx Instructions .Route .MEDSUPPLY Qty: 90 12RF Rx Instructions: As directed sertraline 100 mg tablet 200 mg PO DAILY 30 Days Qty: 60 2RF ursodiol 250 mg tablet 250 mg PO TID 30 Days Qty: 90 2RF risperidone 0.5 mg tablet 1 mg PO BEDTIME Qty: 60 1RF (DME) FreeStyle Lite Strips Strip See Rx Instructions .ROUTE .MEDSUPPLY Qty: 100 11RF Rx Instructions: As directed 3 x/day (DME) Adult pull ups medium package See Rx Instructions .Route .MEDSUPPLY Qty: 90 11RF Rx Instructions: 8 Per day (PRN), 11 refills for 12 months. (DME) stair lift See Rx Instructions .Route .MEDSUPPLY Qty: 1 0RF Rx Instructions: As directed atorvastatin 40 mg tablet 40 mg PO BEDTIME Qty: 90 0RF loratadine 10 mg tablet 10 mg PO BEDTIME Qty: 90 0RF sennosides [senna] 8.6 mg tablet 17.2 mg PO BEDTIME Qty: 90 0RF (DME) disposable gloves [Disposable Latex-Free Gloves] Misc See Rx Instructions .Route Qty: 1000 3RF Rx Instructions: As directed metformin 500 mg tablet 500 mg PO DAILY@0730 polyethylene glycol 3350 [Purelax] 17 gram powder in packet 17 g PO DAILY PRN (Reason: constipation) (DME) pen needle, diabetic [Comfort EZ Pen [place]] 31 gauge x 3/16 needle See Rx Instructions .Route Qty: 100 3RF Rx Instructions: As directed (DME) MOUTH GUARD See Rx Instructions .Route .MEDSUPPLY Qty: 1 0RF Rx Instructions: As directed silver sulfadiazine [Silvadene] 1 % cream 1 appl topical DAILY PRN (Reason: wound healing) 30 Days Qty: 85 0RF Rx Instructions: apply a 1.5 mm thickness (DME) Walker with seat and wheels See Rx Instructions .Route .MEDSUPPLY Qty: 1 0RF Rx Instructions: As directed albuterol sulfate 90 mcg/actuation HFA aerosol inhaler 1 inh inhalation QID PRN (Reason: Shortness Of Breath Or Wheezing) Held clopidogrel 75 mg tablet 75 mg PO DAILY 30 Days Qty: 30 0RF Hold Instructions: Resume on 01/26/23. Discharge Orders: Discharge Order (Routine); Ordered 01/21/23 Ordered By: Steven Colin Diet: Low salt diet Activity on Discharge: As tolerated Stand Alone Forms: Patient Portal Discharge page Care Plan Goals: Read below Health Concerns: Read below Plan of Treatment: Read below Assessment: You have presented to the hospital for right eye redness with no vision loss or pain. found to have significantly elevated blood pressure readings. responded well to Amlodipine and losartan with holding the Aspirin and Plavix. Restart Aspirin, Hold Plavix for the next week Follow with ophthalmology as outpatient Start Amlodipine and Losartan as prescribed, check Blood pressure 3 times daily and report 1 week readings to PCP for further adjustments of medication. Use eye drops as prescribed apply cold compressors to the right eye
--- NOTE | 2023-01-21 12:45 | MHC.CM.PN ---
Patient has been medically cleared for dc to home today, self care. Patient was active with [facility], who has been made aware of today's dc.
== END 2023-01-21 15:19 | disposition home or self-care (01) ==
LOC: HO.ED 14:28 → HO.EDOVER 16:48 → HO.IMC 17:56
PROVIDERS: Admitting Provider Student in an Organized Health Care Education/Training Program; Emergency Provider Emergency Medicine Emergency Medical Services; PCP Internal Medicine; Visit Provider Student in an Organized Health Care Education/Training Program
DX: I16.0 Hypertensive urgency (principal); H11.31 Conjunctival hemorrhage, right eye; I69.351 Hemiplegia and hemiparesis following cerebral infarction affecting right dominant side; I10 Essential (primary) hypertension; E11.9 Type 2 diabetes mellitus without complications; E78.5 Hyperlipidemia, unspecified; Z79.84 Long term (current) use of oral hypoglycemic drugs; Z79.899 Other long term (current) drug therapy; Z79.82 Long term (current) use of aspirin
CPT/HCPCS: 36415; 70450; 70496; 70498; 71045; 80048; 80076; 81001; 82550; 82947; 83605; 83735; 84100; 84484; 85025; 85027; 85610; 85730; 87040; 87086; 87088; 87186; 92610; 93005; 96365; 99222; 99285; J0696; Q9967

== ENCOUNTER → 2023-01-19 10:37 | Outpatient (BNV) | payer OTHER, SELFPAY | PROVIDERS: Admitting Provider Student in an Organized Health Care Education/Training Program; Emergency Provider Emergency Medicine Emergency Medical Services; PCP Internal Medicine; Visit Provider Internal Medicine Cardiovascular Disease | DX: I63.9 Cerebral infarction, unspecified (principal) | CPT/HCPCS: 93010 ==

== ENCOUNTER → 2023-01-19 16:33 | Outpatient (BNV) | payer OTHER, SELFPAY | PROVIDERS: Admitting Provider Student in an Organized Health Care Education/Training Program; Emergency Provider Emergency Medicine Emergency Medical Services; PCP Internal Medicine; Visit Provider Internal Medicine | DX: H11.31 Conjunctival hemorrhage, right eye (principal); R13.10 Dysphagia, unspecified; I16.0 Hypertensive urgency | CPT/HCPCS: 99233; 99235; 99238; 99499 ==

== ENCOUNTER 2023-02-15 14:31 | Outpatient (AMB) | payer OTHER, SELFPAY ==
[2023-02-15 14:34] VITALS: PULSE 64; O2SAT 97; BMI 21.2
--- NOTE | 2023-02-15 14:34 | MHC.PC.OV ---
Vital Signs 02/15/23 14:34 Height 5 ft 1 in Weight 51 kg BMI 21.2 Blood Pressure Location Lt brachial Position Sitting Pulse 64 Pulse Source Pulse Oximeter Temp Source Skin Pulse Oximetry (%) 97 Oxygen Delivery Method Room Air Int[place] [facility] [place]23 blood vessel popping in rt eye Intake Note: Patient is here for hospital discharge follow up. [place] [facility] [place] - 01/21/2023 [employer] Solutions [employer] Required: No Allergies Latex, Natural Rubber Allergy (Intermediate, Verified 12/12/22 14:02) Rash Sulfa (Sulfonamide Antibiotics) [SULFA (SULFONAMIDE ANTIBIOTICS)] Adverse Reaction (Intermediate, Verified 12/12/22 14:02) Stomach Upset Morphine Sulfate Adverse Reaction (Intermediate, Uncoded 12/12/22 13:51) Abdominal Pain Medication List - Last Reconciled 02/25/23 by CHLOÉ Rahman [adult diapers size small petite As directed] [Adult pull ups 8 Per day (PRN), 11 refills for 12 months. ] albuterol sulfate 90 mcg/actuation 1 inh inhalation QID PRN amlodipine 5 mg See Protocol PO DAILY aspirin 81 mg PO DAILY atorvastatin 40 mg PO BEDTIME blood sugar diagnostic (FreeStyle Lite Strips) As directed 3 x/day cholecalciferol (vitamin D3) 50 mcg PO DAILY 30 days clopidogrel 75 mg PO DAILY 30 days disposable gloves (Disposable Latex-Free Gloves) As directed furosemide (Lasix) 20 mg PO DAILY lancets (FreeStyle Lancets) As directed check the blood sugar once a day loratadine 10 mg PO BEDTIME losartan 12.5 mg See Protocol PO DAILY metformin 500 mg PO DAILY@0730 [MOUTH GUARD As directed] multivitamin 1 tab PO DAILY 90 days peg 480-eyfngtxasnrr-kbxerkxr 1-0.2-0.2 % (Artificial Tears ([id number]-scyxtfts)) 2 drps ophthalmic-Right Q4H pen needle, diabetic (Comfort EZ Pen [place]) As directed polyethylene glycol 3350 (Purelax) 17 grams PO DAILY PRN risperidone 1 mg (2 x 0.5 mg) PO BEDTIME sennosides (senna) 17.2 mg (2 x 8.6 mg) PO BEDTIME sertraline 200 mg (2 x 100 mg) PO DAILY 30 days silver sulfadiazine 1% (Silvadene) 1 appl topical DAILY PRN 30 days [stair lift As directed] [Transport wheelchair As directed] ursodiol 250 mg PO TID [Walker with seat and wheels As directed] Tobacco use date assessed: 02/15/23 Fall risk assessment: No Falls in past year Last assessed Fall Risk: 02/15/23 HPI HPI Comments History of Present Illness Details 62-year-old female with history of [id number] type 2 diabetes, mild intermittent asthma, history of multiple CVAs among others presented to the office for hospital discharge follow-up. She had presented to the ED on 01/19 due to subconjunctival hemorrhage in the right eye. She has had recent admissions for TIA/CVA and is on aspirin/Plavix as well as atorvastatin. Per family, vision was also blurry that morning so they were concerned about stroke and brought her to the ED. however there were no changes noted to speech, focal paresthesias or weakness. She does have chronic right-sided facial droop at baseline. In the ED, she was hypertensive up to 207/76. Head CT was negative for any acute intracranial pathology and CTA of the head neck showed moderate to severe stenosis of the cavernous segments of both internal carotid arteries and numerous chronic small vessel ischemic changes within the periventricular white matter basal glanular out and pollens. EKG was reassuring. The patient was admitted to [facility] from 01/19- for hypertensive urgency which responded well to oral therapy of amlodipine and losartan. Given there are no evidence of new focal deficits or acute findings on CT/CTA. She was diagnosed with subconjunctival hemorrhage of the right eye with small hematoma formation secondary to dual antiplatelet therapy and uncontrolled hypertension. During admission, both Plavix and aspirin were held with partial resolution of the hemorrhage into started on lubricant eyedrops. She was advised to follow up outpatient with Ophthalmology. Advised to restart aspirin on discharge but hold Plavix for 1 week. She was also discharged on amlodipine and losartan and advised to check her blood pressures at home. She was seen shortly after discharge by Ophthalmology who recommended continuing to hold both aspirin and Plavix and has upcoming appointment in the coming weeks. [facility] Medical History (Updated 02/25/23 @ 15:03 by CHLOÉ Rahman) BOB positive Asthma Cervical osteoarthritis CVA (cerebral vascular accident) Diabetes type 2, uncontrolled Diabetic polyneuropathy associated with type 2 diabetes mellitus Diabetic retinopathy associated with type 2 diabetes mellitus Dyslipidemia Dysphagia Fatty liver disease, nonalcoholic GERD (gastroesophageal reflux disease) History of CVA (cerebrovascular accident) History of sleep apnea History of umbilical hernia HTN (hypertension) Hypertension Hypertension Hypertensive urgency Hypoglycemia after GI (gastrointestinal) surgery Osteoarthritis of right glenohumeral joint Postural hypotension Primary biliary cholangitis Shoulder pain, right Sjogrens syndrome Subclinical hypothyroidism Surgical History History of carpal tunnel release History of esophagogastroduodenoscopy (EGD) History of laparoscopic appendectomy History of partial hysterectomy Hx of section Hx of colonoscopy Hx of dilation and curettage Hx of gastric bypass Hx of tonsillectomy Family History Father MA (myocardial infarction) Diabetes mellitus Mother Diabetes mellitus CVA (cerebral vascular accident) Maternal Grandmother Stomach cancer Sister Hemorrhagic cerebrovascular accident (CVA) Social History Household Members: Spouse Housing: House Are you a primary care director rn to a significant other at home: No Do you presently have visiting nurse or other home services: Yes (Pt requires 24 hour care, She has a VNA nurse but no TISSUE COORDINATOR yet in the house) Alcohol intake: never Patient Tobacco Use Status: Never used Tobacco e-Cigarette/Vaping Use: Never Used Second Hand Smoke Exposure: No Advance Directives Date on File: 07/10/99 service: No Current occupational status: disabled Cognitive needs: Yes (wheelchait) Hearing needs: No Vision needs: No Questionnaire Thrive Questionnaire Date Thrive assessed: 01/20/23 AUDIT C Alcohol Use Questionnaire (AUDIT-C) 1. How often do you have a drink containing alcohol?: Never Total Score: 0 Score Reviewed/Action Taken: No DYLAN-7 AMB Questionnaire DYLAN-7 Date DYLAN - 7 assessed: 10/17/22 Source: Developed by Drs. Ari Patrick, Bonny Hanks, David Rebollar and colleagues, with an educational kevin from [employer]. Review of Systems Const Details: General: No fevers, malaise, unintentional weight loss HEENT: No blurred vision, diplopia Cardiovascular: No chest pain, palpitations, or leg edema Respiratory: No shortness of breath, wheezing, cough MSK: No myalgia, back pain Neuro: No headaches, weakness, paresthesias. +chronic r facial droop Skin: No rashes or lesions Physical exam (Primary Care) Vital Signs: Last Vital Signs Pulse 64 02/15/23 14:34 Pulse Ox 97 02/15/23 14:34 Oxygen Delivery Method Room Air 02/15/23 14:34 BMI result Body Mass Index 21.2 Tobacco/Smoking Status: Tobacco use Status Tobacco use date assessed 02/15/23 02/15/23 14:49 Patient Tobacco Use Status Never used Tobacco 02/15/23 14:49 e-Cigarette/Vaping Use Never Used 02/15/23 14:49 Thrive Assessment: Date of Thrive Assessment Date Thrive assessed 01/20/23 02/15/23 14:49 Const Other: Constitutional - Awake and Alert, No apparent distress Eyes - PERRLA, EOMI, sclera and conjunctiva normal Cardiovascular - S1S2, RRR, No edema Respiratory - Normal lung expansion, Normal respiratory effort, No respiratory distress, CTA bilaterally Extremities - no calf tenderness bilaterally, no swelling Skin - Warm/Dry Neurological - Alert & oriented x3, CN II-XII in tact, 5/5 strength BUE and BLE Results AMB Hemoglobin A1c AMB Hemoglobin A1c 8.5 % Last Edit by LY Adams on 02/15/23 14:50 Results Reviewed Results Reviewed: Laboratory Last Values Hgb A1c (Clinic) 8.5 % (4.0-6.0) H 02/15/23 14:34 Assessment and Plan Assessment & Plan (1) Medication monitoring encounter: Code(s): Z51.81 - Encounter for therapeutic drug level monitoring Plan: Recently started on lasix. check renal function electrolytes with bmp (2) Subconjunctival hemorrhage of right eye: Code(s): H11.31 - Conjunctival hemorrhage, right eye Plan: Appears resolved. Per ophthamologist, continue holding plavix. Discussed risk and benefit of continuing to hold DAPT. Recommend asa. Has upcoming appointment with Ophthalmology in coming weeks. Recommend calling PCP for further recommendation if back gray cloth washer continues to recommend holding Plavix given concern for recurrent stroke. (3) Hypertension: Code(s): I10 - Essential (primary) hypertension Qualifiers: Hypertension type: primary hypertension Qualified Code(s): I10 - Essential (primary) hypertension Plan: Controlled in office on recheck with BP 116/80. Continue amlodipine 5mg and losartan 12.5mg daily. DASH diet. Follow up with pcp as scheduled Orders: Orders Basic Metabolic Panel 02/15/23 Z51.81 - Encounter for therapeutic drug level monitoring AMB Hemoglobin A1c 02/15/23 E11.319 - Type 2 diabetes mellitus with unspecified diabetic retinopathy without macular edema Medications: New furosemide (Lasix) 20 mg PO DAILY 90 tabs 0RF Discontinued atorvastatin 40 mg PO DAILY 90 tabs 3RF E78.5 - Hyperlipidemia, unspecified metformin 500 mg PO BIDWMEAL 90 days 180 tabs 0RF Coding Level of Care Code Est Pt Level 4 (80180) Diagnoses Medication monitoring encounter Z51.81 Subconjunctival hemorrhage of right eye H11.31 Hypertension I10 Hypertension type: primary hypertension
== END 2023-02-15 15:47 | disposition home or self-care (01) ==
PROVIDERS: PCP Internal Medicine; Visit Provider Physician Assistant
DX: Z51.81 Encounter for therapeutic drug level monitoring (principal); H11.31 Conjunctival hemorrhage, right eye; I10 Essential (primary) hypertension
CPT/HCPCS: 83036; 99214

== ENCOUNTER 2023-03-06 13:55 | Inpatient (IN) | payer OTHER, SELFPAY ==
--- NOTE | ~2023-03-06 | MR_ITS ---
EXAMINATION: MRI BRAIN WITHOUT CONTRAST CLINICAL INFORMATION: Question cerebrovascular accident. COMPARISON: CT head 03/06/2023. CT angiogram of the head and neck 01/19/2023. TECHNIQUE: Multiplanar MR imaging of the brain was performed without contrast. FINDINGS: There is a small focus of restricted diffusion involving the subcortical white matter of the left precentral gyrus along its mid to lateral convexity. In addition to this acute finding there are numerous chronic small vessel ischemic changes within the periventricular white matter and liana as well as a few punctate foci of susceptibility artifact representing microhemorrhages within the liana indicating the possibility of underlying hypertensive angiopathy. Intracranial vascular flow voids are grossly maintained. There is no intracranial mass effect or midline shift. No abnormal extra axial question. Lateral and third ventricles are normal. No hydrocephalus. Midline structures including the cervicomedullary junction are normal. No acute bone marrow signal changes. There is a trace right mastoid tip effusion. Fxol-fu-hrxssiek paranasal sinus disease primarily affecting the ethmoid air cells and there is a retention cyst within the alveolar recess of the right maxillary sinus. Globes and orbits are grossly symmetric. MR/MR head/brain wo con IMPRESSION: There is a small acute white matter infarct involving the subcortical white matter of the left precentral gyrus along its mid to lateral convexity. This acute finding superimposed upon numerous chronic small vessel ischemic changes within the periventricular white matter and liana. There are also a few chronic microhemorrhages within the liana suggesting the possibility of underlying hypertensive angiopathy.
--- NOTE | ~2023-03-06 | US_ITS ---
EXAMINATION: US EXTRACRANIAL CAROTID DUPLEX, BILATERAL CLINICAL INFORMATION: CVA COMPARISON: None available. TECHNIQUE: Real-time ultrasound and Doppler techniques (integrating B-mode 2-D vascular images, Doppler spectral analysis and color-flow Doppler imaging) were utilized to interrogate the extracranial carotid arteries, the vertebral arteries and proximal subclavian arteries bilaterally. The degree of stenosis is determined by criteria similar to NASCET. FINDINGS: Right Side: 1. There is soft atherosclerotic plaque seen in the bifurcation/proximal ICA region. 2. The common carotid artery PSV proximally is 82 cm/s and distally 75 cm/s. 3. The proximal internal carotid artery velocities are 109 cm/s systolic and 24 cm/s diastolic. 4. The proximal external carotid artery PSV is 62 cm/s. 5. The vertebral artery shows antegrade flow. 6. The subclavian artery waveforms are normal. Left Side: 1. There is soft atherosclerotic plaque seen in the bifurcation/proximal ICA region. 2. The common carotid artery PSV proximally is 78 cm/s and distally 50 cm/s. 3. The proximal internal carotid artery velocities are 101 cm/s systolic and 27 cm/s diastolic. 4. The proximal external carotid artery PSV is 50 cm/s. 5. The vertebral artery shows antegrade flow. 6. The subclavian artery waveforms are normal. US/US carotid duplex BI 1. IMPRESSION: RIGHT: No hemodynamically significant stenosis in right carotid artery. 2. LEFT: No hemodynamically significant stenosis in left carotid artery. 3. Normal antegrade flow seen in both vertebral arteries.
--- NOTE | ~2023-03-06 | CT_ITS ---
EXAMINATION: CT HEAD WITHOUT CONTRAST CLINICAL INFORMATION: Question of CVA, altered mental status history. COMPARISON: None available. TECHNIQUE: Contiguous axial imaging was performed from the skull base to vertex without intravenous administration of contrast. Coronal and sagittal reformatted images were obtained. This CT examination was performed using dose optimization techniques as appropriate, variously including the following: *Automated exposure control *Adjustment of mA and/or kV according to patient size (this includes techniques or standardized protocols for targeted exams where dose is matched to indication/reason for exam; i.e. extremities or head) *Use of iterative reconstruction technique DLP: 536 mGy-cm FINDINGS: The cortical sulci are normal. The lateral ventricles are symmetrical. The third and fourth ventricles are in their normal midline position. The basilar and prepontine cisterns are unremarkable. There is no acute intra or extracerebral abnormality. There is no mass effect or midline shift. Sections through the bony calvarium are unremarkable. The paranasal sinuses are clear. The bony orbits and orbital contents are unremarkable. CT/CT head/brain wo IV con IMPRESSION: No acute intracranial pathology.
--- NOTE | 2023-03-06 14:07 | ECG_ITS ---
Test Reason : stroke Blood Pressure : / mmHG Vent. Rate : 073 BPM Atrial Rate : 073 BPM P-R Int : 168 ms QRS Dur : 062 ms QT Int : 420 ms P-R-T Axes : 047 003 099 degrees QTc Int : 462 ms Normal sinus rhythm Minimal voltage criteria for LVH, may be normal variant ( R in aVL ) Abnormal QRS-T angle, consider primary T wave abnormality Abnormal ECG When compared with ECG of 19-JAN-2023 11:06, No significant change was found Referred By: Monico Oquendo Electronically Signed By:BONY HANSON
--- NOTE | 2023-03-06 14:10 | ED.NEUROSD ---
HPI - Neuro Symptoms/Deficit General Chief Complaint: Stroke Stated Complaint: STROKE ALERT,R DROOP,SLURR,WEAKNESS PER EMS Time Seen by Provider: 03/06/23 13:59 Source: EMS Mode of arrival: EMS History of Present Illness HPI Narrative: This is a 62 years old of female presented to the emergency department for possible CVA. [facility] the family called an ambulance because increasing facial drop. Patient states that she feels well. She has history of CVA in the past she was here in October for a small left gyrus CVA Onset (ago): hour(s) (4) Timing confirmed by: family member Location: left face Severity: mild Related Data Home Medications Medication Instructions Recorded Confirmed albuterol sulfate 90 mcg/actuation 1 inh inhalation QID PRN Shortness 04/28/20 02/25/23 aerosol inhaler Of Breath Or Wheezing polyethylene glycol 3350 17 gram 17 g PO DAILY PRN constipation 10/25/22 02/25/23 oral powder packet (Purelax) metformin 500 mg tablet 500 mg PO DAILY@0730 01/19/23 02/25/23 Previous Rx's Medication Instructions Recorded pen needle, diabetic 31 gauge x #100 ea 02/24/2109/22 (Comfort EZ Pen [place]) Transport wheelchair #1 ea 08/11/21 multivitamin 1 tab PO DAILY 90 days #90 tabs 09/13/21 Walker with seat and wheels #1 ea 09/28/21 lancets 28 gauge (FreeStyle #100 ea 12/28/21 Lancets) cholecalciferol (vitamin D3) 50 50 mcg PO DAILY 30 days #30 caps 03/28/22 mcg (2,000 unit) capsule aspirin 81 mg tablet,delayed 81 mg PO DAILY #90 tabs 04/20/22 release MOUTH GUARD #1 ea 06/08/22 adult diapers size small petite #90 ea 08/03/22 risperidone 0.5 mg tablet 1 mg PO BEDTIME #60 tabs 10/30/22 blood sugar diagnostic (FreeStyle #100 ea 11/28/22 Lite Strips) silver sulfadiazine 1 % topical 1 appl topical DAILY PRN wound 12/12/22 cream (Silvadene) healing 30 days #85 grams Adult pull ups #90 ea 12/13/22 stair lift #1 ea 12/16/22 loratadine 10 mg tablet 10 mg PO BEDTIME #90 tabs 01/02/23 sennosides 8.6 mg tablet (senna) 17.2 mg PO BEDTIME #90 tabs 01/02/23 disposable gloves (Disposable #1,000 ea 01/03/23 Latex-Free Gloves) clopidogrel 75 mg tablet 75 mg PO DAILY 30 days #30 tabs 01/07/23 amlodipine 5 mg tablet 5 mg PO DAILY #90 tabs 01/21/23 losartan 25 mg tablet 12.5 mg PO DAILY #90 tabs 01/21/23 peg [id number] 1 2 drp ophthalmic-Right Q4H #15 mL 01/21/23 %-0.2 %-0.2 % eye drops (Artificial Tears ([id number])) sertraline 100 mg tablet 200 mg PO DAILY 30 days #180 tabs 01/30/23 atorvastatin 40 mg tablet 40 mg PO BEDTIME #90 tabs 02/03/23 ursodiol 250 mg tablet 250 mg PO TID #270 tabs 02/14/23 furosemide 20 mg tablet (Lasix) 20 mg PO DAILY #90 tabs 02/15/23 Allergies Allergy/AdvReac Type Severity Reaction Status Date / Time Latex, Natural Rubber Allergy Intermediate Rash Verified 12/12/22 14:02 Sulfa (Sulfonamide AdvReac Intermediate Stomach Verified 12/12/22 14:02 Antibiotics) Upset [SULFA (SULFONAMIDE ANTIBIOTICS)] Morphine Sulfate AdvReac Intermediate Abdominal Uncoded 12/12/22 13:51 Pain Review of Systems Review of Systems: Yes Unobtainable due to mental condition [facility] Past Medical History Medical History (Updated 03/06/23 @ 16:22 by Monico Oquendo MD) BOB positive Asthma Cervical osteoarthritis CVA (cerebral vascular accident) Diabetes type 2, uncontrolled Diabetic polyneuropathy associated with type 2 diabetes mellitus Diabetic retinopathy associated with type 2 diabetes mellitus Dyslipidemia Dysphagia Fatty liver disease, nonalcoholic GERD (gastroesophageal reflux disease) History of CVA (cerebrovascular accident) History of sleep apnea History of umbilical hernia HTN (hypertension) Hypertension Hypertension Hypertensive urgency Hypoglycemia after GI (gastrointestinal) surgery Osteoarthritis of right glenohumeral joint Postural hypotension Primary biliary cholangitis Shoulder pain, right Sjogrens syndrome Subclinical hypothyroidism Surgical History History of carpal tunnel release History of esophagogastroduodenoscopy (EGD) History of laparoscopic appendectomy History of partial hysterectomy Hx of section Hx of colonoscopy Hx of dilation and curettage Hx of gastric bypass Hx of tonsillectomy Family History Family History Father [place] (myocardial infarction) Diabetes mellitus Mother Diabetes mellitus CVA (cerebral vascular accident) Maternal Grandmother Stomach cancer Sister Hemorrhagic cerebrovascular accident (CVA) Social History Social History Household Members: Spouse Housing: House Are you a primary ambulatory care to a significant other at home: No Do you presently have visiting nurse or other home services: Yes (Pt requires 24 hour care, She has a VNA nurse but no SNOW RANGER yet in the house) Alcohol intake: never Patient Tobacco Use Status: Never used Tobacco Smoked in Last 30 Days: No e-Cigarette/Vaping Use: Never Used Second Hand Smoke Exposure: No Use of substances other than those prescribed or required for medical reasons: No Advance Directives Date on File: 07/10/99 Patient : No service: No Current occupational status: disabled Cognitive needs: Yes (wheelchait) Hearing needs: No Vision needs: No Physical Exam Vital Signs: Vital Signs: Last Vital Signs Temp 97.9 F 03/06/23 14:11 Pulse 73 03/06/23 14:11 Resp 16 03/06/23 14:11 BP 173/73 H 03/06/23 14:11 Pulse Ox 97 03/06/23 14:11 O2 Del Method Room Air 03/06/23 14:11 BMI result Body Mass Index 22.3 She looks well she has no toxic-appearing Const: General: cooperative HEENT: Other: Examination the head eyes ears nose and throat showed rt facial droop which is chronic Head: Yes normal to inspection General nose exam: Normal external nose present Mouth: Normal oral and palatal mucosa present Throat: Yes posterior oropharynx normal Neck: Neck: Yes normal visual inspection and Yes full ROM Chest: Chest palpation & inspection: normal inspection of the chest Resp: Effort & Inspection: normal respiratory effort Auscultation: clear to auscultation bilaterally Cardio: Jugular venous distension: no JVD Rate: regular rate Rhythm: regular rhythm GI: Inspection: Yes normal to inspection Palpation (GI): Soft to palpation and not firm Auscultation: normal bowel sounds Course Reevaluation(s) Reevaluation #1: Case was discussed with the Neurology team CTA was not advised because she had a recent CTA in January, plus this is not a large vessel CVA, it is reasonable to do a stat MRI. As I discussed with the neuro team patient not candidate for thrombolytic therapy because minimal symptoms at this time a also not sure if the new. The the risk of tPA would a waived the benefit. Time: 14:32 Reevaluation #2: spoke with daughter will come to the ED soon at this point I am off shift MRI brain pending signed out to Dr Acuna Time: 16:19 Medical Decision Making Medical Decision Making [facility] Narrative: Patient presented with a possible CVA, on examination there is no pronator drift there is a minimal facial droop which is old. we discussed the case with the neurology team will obtain a stat MRI.NO TPA minimal symtoms not sure if new or old,risk of PTP outweight the benefit @4.20 PM signed out to Dr Acuna MRI pending Differential Diagnosis Differential Diagnoses: The differential diagnosis associated with the presentation includes new CVA/intracranial bleed Admission/Observation Consideration of admission/observation: Escalation of care including admission/observation considered Consult Healthcare Provider Management of the patient was discussed with: Drawing In Machine Tender Helper neuro team/Audra Andino Lab Data [facility] Lab Attestation statement: I reviewed the patient's lab results. 03/06/23 14:41 03/06/23 14:41 Labs: Lab Results 03/06/23 03/06/23 03/06/23 Range/Units 14:12 14:41 14:41 WBC 7.8 (4.8-10.8) X10*3/uL RBC 4.99 (4.20-5.50) X10*6/uL Hgb 12.3 (12.0-16.0) g/dl Hct 39.6 (37.0-47.0) % MCV 79.4 L (80.0-98.0) fL MCH 24.6 L (27.0-33.0) pg MCHC 31.1 (31.0-35.0) g/dl RDW 15.8 (11.0-16.0) % Plt Count 201 (160-400) X10*3/uL MPV Not Reportable Immature Gran % (Auto) 0.4 (0.0-0.4) % Neut % (Auto) 65.5 (45-73) % Lymph % (Auto) 24.5 (20-40) % [place] % (Auto) 7.1 (2-11) % Eos % (Auto) 2.1 (0-4) % Baso % (Auto) 0.4 (0-2) % Lymph # (Auto) 1.9 (1.2-4.9) X10*3/uL [place] # (Auto) 0.6 (0.1-1.2) X10*3/uL Eos # (Auto) 0.2 (0.0-0.4) X10*3/uL Baso # (Auto) 0.0 (0.0-0.2) X10*3/uL Abs Immat Gran (auto) 0.03 (0.00-0.03) X10*3/uL Absolute Neuts (auto) 5.1 (2.0-8.3) x10*3/uL Absolute Nucleated RBC 0.000 (0.0-0.012) X10*3/uL Nucleated RBC % (auto) 0.0 (0.0-0.2) /100WBC PT (11.1-13.3) SEC INR (0.9-1.1) Sodium 140 (135-145) mmol/L Potassium 3.4 D (3.3-5.1) mmol/L Chloride 103 (96-108) mmol/L Carbon Dioxide 26 (22-29) mmol/L Anion Gap 14 (12-20) BUN 18 H (9-16) mg/dL Creatinine 0.76 (0.5-1.4) mg/dL Estim Creat Clear Calc 53.6 Estimated GFR > 60 POC Glucose 210 H (60-115) mg/dL Random Glucose 208 H (60-115) mg/dL Calcium 9.5 (8.4-10.2) mg/dL Total Bilirubin 0.2 (0.0-1.0) mg/dL AST 29 (5-31) U/L ALT 27 (0-31) U/L Alkaline Phosphatase 204 H (39-117) U/L Troponin I High Sens (<3.5-17.0) ng/L Total Protein 7.8 (6.5-8.0) g/dL Albumin 3.8 (3.5-5.0) g/dL 03/06/23 03/06/23 Range/Units 14:41 14:41 WBC (4.8-10.8) X10*3/uL RBC (4.20-5.50) X10*6/uL Hgb (12.0-16.0) g/dl Hct (37.0-47.0) % MCV (80.0-98.0) fL MCH (27.0-33.0) pg MCHC (31.0-35.0) g/dl RDW (11.0-16.0) % Plt Count (160-400) X10*3/uL MPV Immature Gran % (Auto) (0.0-0.4) % Neut % (Auto) (45-73) % Lymph % (Auto) (20-40) % [place] % (Auto) (2-11) % Eos % (Auto) (0-4) % Baso % (Auto) (0-2) % Lymph # (Auto) (1.2-4.9) X10*3/uL [place] # (Auto) (0.1-1.2) X10*3/uL Eos # (Auto) (0.0-0.4) X10*3/uL Baso # (Auto) (0.0-0.2) X10*3/uL Abs Immat Gran (auto) (0.00-0.03) X10*3/uL Absolute Neuts (auto) (2.0-8.3) x10*3/uL Absolute Nucleated RBC (0.0-0.012) X10*3/uL Nucleated RBC % (auto) (0.0-0.2) /100WBC PT 13.0 (11.1-13.3) SEC INR 1.1 (0.9-1.1) Sodium (135-145) mmol/L Potassium (3.3-5.1) mmol/L Chloride (96-108) mmol/L Carbon Dioxide (22-29) mmol/L Anion Gap (12-20) BUN (9-16) mg/dL Creatinine (0.5-1.4) mg/dL Estim Creat Clear Calc Estimated GFR POC Glucose (60-115) mg/dL Random Glucose (60-115) mg/dL Calcium (8.4-10.2) mg/dL Total Bilirubin (0.0-1.0) mg/dL AST (5-31) U/L ALT (0-31) U/L Alkaline Phosphatase (39-117) U/L Troponin I High Sens 5.4 D (<3.5-17.0) ng/L Total Protein (6.5-8.0) g/dL Albumin (3.5-5.0) g/dL Independent Interpretation I performed an independent interpretation of an: CT Scan Interpretation: head ct negative Radiology Impression Discussion of test interpretation with radiology: I have reviewed the radiologist's reading. Radiologist Impression: *Use of iterative reconstruction technique DLP: 536 mGy-cm FINDINGS: The cortical sulci are normal. The lateral ventricles are symmetrical. The third and fourth ventricles are in their normal midline position. The basilar and prepontine cisterns are unremarkable. There is no acute intra or extracerebral abnormality. There is no mass effect or midline shift. Sections through the bony calvarium are unremarkable. The paranasal sinuses are clear. The bony orbits and orbital contents are unremarkable. CT/CT head/brain wo IV con IMPRESSION: No acute intracranial pathology. Dictated By: Dmoingo Bond MD Signed By: <Electronically signed by Domingo Bond MD in OV> 03/06/23 5416 External Record Review External record reviewed: Inpatient record Chronic Conditions Patient?s care impacted by: Other (CVA) Discharge Plan Discharge Clinical Impression: Facial droop due to old stroke Patient Disposition: Still a Patient Prescriptions: No Action (DME) Transport wheelchair See Rx Instructions .Route .MEDSUPPLY Qty: 1 0RF Rx Instructions: As directed multivitamin Tablet 1 tab PO DAILY 90 Days Qty: 90 3RF (DME) lancets [FreeStyle Lancets] 28 gauge misc See Rx Instructions .ROUTE .MEDSUPPLY Qty: 100 3RF Rx Instructions: As directed check the blood sugar once a day cholecalciferol (vitamin D3) 50 mcg (2,000 unit) capsule 50 mcg PO DAILY 30 Days Qty: 30 11RF aspirin 81 mg tablet,delayed release (DR/EC) 81 mg PO DAILY Qty: 90 3RF (DME) adult diapers size small petite See Rx Instructions .Route .MEDSUPPLY Qty: 90 12RF Rx Instructions: As directed risperidone 0.5 mg tablet 1 mg PO BEDTIME Qty: 60 1RF (DME) FreeStyle Lite Strips Strip See Rx Instructions .ROUTE .MEDSUPPLY Qty: 100 11RF Rx Instructions: As directed 3 x/day (DME) Adult pull ups medium package See Rx Instructions .Route .MEDSUPPLY Qty: 90 11RF Rx Instructions: 8 Per day (PRN), 11 refills for 12 months. (DME) stair lift See Rx Instructions .Route .MEDSUPPLY Qty: 1 0RF Rx Instructions: As directed loratadine 10 mg tablet 10 mg PO BEDTIME Qty: 90 0RF sennosides [senna] 8.6 mg tablet 17.2 mg PO BEDTIME Qty: 90 0RF (DME) disposable gloves [Disposable Latex-Free Gloves] Misc See Rx Instructions .Route Qty: 1000 3RF Rx Instructions: As directed clopidogrel 75 mg tablet 75 mg PO DAILY 30 Days Qty: 30 0RF Hold Instructions: Resume on 01/26/23. sertraline 100 mg tablet 200 mg PO DAILY 30 Days Qty: 180 1RF atorvastatin 40 mg tablet 40 mg PO BEDTIME Qty: 90 0RF ursodiol 250 mg tablet 250 mg PO TID Qty: 270 0RF metformin 500 mg tablet 500 mg PO DAILY@0730 amlodipine 5 mg Tablet 5 mg PO DAILY Qty: 90 0RF Protocol: Hold for SBP< HOLD for SBP < : 90 losartan 25 mg Tablet 12.5 mg PO DAILY Qty: 90 0RF Protocol: Hold for SBP< HOLD for SBP < : 90 Artificial Tears([id number]) 1-0.2-0.2 % Drops 2 drp ophthalmic-Right Q4H Qty: 15 2RF polyethylene glycol 3350 [Purelax] 17 gram powder in packet 17 g PO DAILY PRN (Reason: constipation) (DME) pen needle, diabetic [Comfort EZ Pen [place]] 31 gauge x 3/16 needle See Rx Instructions .Route Qty: 100 3RF Rx Instructions: As directed (DME) MOUTH GUARD See Rx Instructions .Route .MEDSUPPLY Qty: 1 0RF Rx Instructions: As directed silver sulfadiazine [Silvadene] 1 % cream 1 appl topical DAILY PRN (Reason: wound healing) 30 Days Qty: 85 0RF Rx Instructions: apply a 1.5 mm thickness (DME) Walker with seat and wheels See Rx Instructions .Route .MEDSUPPLY Qty: 1 0RF Rx Instructions: As directed furosemide [Lasix] 20 mg tablet 20 mg PO DAILY Qty: 90 0RF albuterol sulfate 90 mcg/actuation HFA aerosol inhaler 1 inh inhalation QID PRN (Reason: Shortness Of Breath Or Wheezing)
[2023-03-06 14:11] VITALS: BP 173/73; PULSE 73; RESP 16; TEMP 36.6; O2SAT 97; BMI 22.3
[2023-03-06 14:45] LABS: MANUAL DIFF FLAG NO
[2023-03-06 14:55] LABS: Basophils Percent Auto 0.4 % (0-2); Eosinophils Absolute Auto 0.2 X10*3/uL (0.0-0.4); Eosinophils Percent Auto 2.1 % (0-4); Hematocrit 39.6 % (37.0-47.0); Hemoglobin 12.3 g/dl (12.0-16.0); Imm Gran Abs Auto 0.03 X10*3/uL (0.00-0.03); Imm Gran Pct Auto 0.4 % (0.0-0.4); Lymphocytes Absolute Auto 1.9 X10*3/uL (1.2-4.9); Lymphocytes Percent Auto 24.5 % (20-40); Mean Corpuscular HGB Conc 31.1 g/dl (31.0-35.0); Mean Corpuscular Hemoglobin 24.6 pg (27.0-33.0); Mean Corpuscular Volume 79.4 fL (80.0-98.0); Monocytes Absolute Auto 0.6 X10*3/uL (0.1-1.2); Monocytes Percent Auto 7.1 % (2-11); Neutrophils Absolute Auto 5.1 x10*3/uL (2.0-8.3); Neutrophils Percent Auto 65.5 % (45-73); Platelet Count 201 X10*3/uL (160-400); Red Blood Count 4.99 X10*6/uL (4.20-5.50); Red Cell Distribution Width 15.8 % (11.0-16.0); White Blood Count 7.8 X10*3/uL (4.8-10.8)
[2023-03-06 15:00] LABS: Glucose, Whole Blood 210 mg/dL (60-115)
[2023-03-06 15:06] LABS: Alanine Aminotransferase 27 U/L (0-31); Albumin Level 3.8 g/dL (3.5-5.0); Alkaline Phosphatase 204 U/L (39-117); Anion Gap 14 (12-20); Aspartate Amino Transferase 29 U/L (5-31); Bilirubin Total 0.2 mg/dL (0.0-1.0); Blood Urea Nitrogen 18 mg/dL (9-16); Calcium 9.5 mg/dL (8.4-10.2); Carbon Dioxide 26 mmol/L (22-29); Chloride 103 mmol/L (96-108); Creatinine Clr Calc Pharmacy 53.6; Estimated Glomerular Filt Rate > 60; Glucose Random 208 mg/dL (60-115); INTERNATIONAL NORM RATIO 1.1 (0.9-1.1); Potassium 3.4 mmol/L (3.3-5.1); Sodium 140 mmol/L (135-145); Total Protein 7.8 g/dL (6.5-8.0)
[2023-03-06 15:13] LABS: Troponin-I High Sensitivity 5.4 ng/L (<3.5-17.0)
--- NOTE | 2023-03-06 15:47 | PC.NURSE ---
pt off unit to MRI
--- NOTE | 2023-03-06 16:12 | MHC.STROKE ---
PATIENT KNOWN TO STROKE SERVICE FROM PRIOR ADMISSIONS, LAST STROKE 10/25/22. TODAY FAMILY THOUGHT SHE HAD INCREASED RIGHT DROOP ONSET ? 1030. CTH DONE, DISCUSSED CASE WITH DR. BARRETT, CTA FROM OCTOBER 2022 REVIEWED AND BASED ON NIHSS OF 1, UNLIKELY LVO, HE IS RECOMMENDING MRI W/O CONTRAST. I ACCOMPANIED THE PATIENT TO MRI. FAINT SIGNAL IN [place] BUT IT CORRESPONDS WITH S4ENSAR. NOT A TPA CANDIDATE BASED ON UNCERTAIN LKW TIME AND LOW NIHSS, RESULTS PENDING. UPON RETURN, SHE PASSED SWALLOW SCREEN, WITH A SLIGHT DELAY NOTED, N COUGHING. WE GOT HER UP TO THE COMMODE AND NU LEGS ARE WEAK, VOIDED 300CC. ALERT, COOPERATIVE. I WILL CONTINUE TO FOLLOW.
[2023-03-06 16:36] VITALS: BP 144/62; PULSE 70; RESP 16; TEMP 36.6; O2SAT 99
--- NOTE | 2023-03-06 16:40 | MHC.EDTECH ---
Patient pad changed and repositioned
[2023-03-06] MEDS: Aspirin Enteric Coated 81 MG TABLET.DR PO (17:39)
--- NOTE | 2023-03-06 17:50 | PHA.MEDREC ---
Pharmacy Consult ? Medication Reconciliation Pharmacy has completed the medication reconciliation. Confirmed medications with Maddie. Maddie reported that patient is currently not taking clopidgrel, it was put on hold by the patient's provider due to an issue with a alize in her eye. Emmy Phillip, PharmD
--- NOTE | 2023-03-06 18:37 | PC.NURSE ---
pt a difficult poke. 2 RN attempt at IV placement 22G placed in the R forearm
[2023-03-06 19:08] VITALS: BP 145/62; PULSE 69; RESP 14; TEMP 36.6; O2SAT 99
--- NOTE | 2023-03-06 19:48 | PM.IMHP ---
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 Patient also reports intractable vertigo and slurred speech. Last known well time around 4 hours prior to arrival. Not a tPA candidate. Following acute ischemic CVA in 10/2022 she was started on Plavix in addition to aspirin. No LV AO noted at that time. However ended up readmitted for subconjunctival hemorrhage and was advised on discharge hold Plavix for 1 week per resume aspirin. She did see her door technician outpatient who recommended continuing to hold the Plavix and she states she has not yet resumed this. She states the door technician plan was to resume soon however. Bleeding of the eye appears to have resolved fully. The patient is also reporting up to 5 episodes diarrhea daily x several days with mild diffuse abd pain. No nausea, vomiting, melena, or hematochezia. Denies any new focal paresthesias or weakness, no dysphagia, visual changes. On arrival, patient hypertensive to 173/73, vitals otherwise normal. Hematology studies unremarkable. Renal function baseline, electrolyte levels normal. Glucose 210. Last hemoglobin A1c 8.5%. Troponin 5.4. Lipid panel pending. Head CT was negative for any acute intracranial abnormality. Brain MRI showed small acute white matter infarct involving the subcortical white matter of the left precentral gyrus along its mid to lateral convexity. This acute finding superimposed upon numerous chronic small vessel ischemic changes in the periventricular white matter and liana as well as a few chronic microhemorrhages within the liana suggesting possibility of underlying hypertensive angiopathy. She did pass bedside nursing swallow evaluation in the ED. in the ED was given 81 mg aspirin. [facility] Medical History (Updated 03/06/23 @ 16:22 by Monico Oquendo MD) BOB positive Asthma Cervical osteoarthritis CVA (cerebral vascular accident) Diabetes type 2, uncontrolled Diabetic polyneuropathy associated with type 2 diabetes mellitus Diabetic retinopathy associated with type 2 diabetes mellitus Dyslipidemia Dysphagia Fatty liver disease, nonalcoholic GERD (gastroesophageal reflux disease) History of CVA (cerebrovascular accident) History of sleep apnea History of umbilical hernia HTN (hypertension) Hypertension Hypertension Hypertensive urgency Hypoglycemia after GI (gastrointestinal) surgery Osteoarthritis of right glenohumeral joint Postural hypotension Primary biliary cholangitis Shoulder pain, right Sjogrens syndrome Subclinical hypothyroidism Family History Father DC (myocardial infarction) Diabetes mellitus Mother Diabetes mellitus CVA (cerebral vascular accident) Maternal Grandmother Stomach cancer Sister Hemorrhagic cerebrovascular accident (CVA) Surgical History History of carpal tunnel release History of esophagogastroduodenoscopy (EGD) History of laparoscopic appendectomy History of partial hysterectomy Hx of section Hx of colonoscopy Hx of dilation and curettage Hx of gastric bypass Hx of tonsillectomy Social History Household Members: Spouse Housing: House Are you a primary skin care instructor to a significant other at home: No Do you presently have visiting nurse or other home services: Yes (Pt requires 24 hour care, She has a VNA nurse but no [employer] yet in the house) Alcohol intake: never Patient Tobacco Use Status: Never used Tobacco Smoked in Last 30 Days: No e-Cigarette/Vaping Use: Never Used Second Hand Smoke Exposure: No Use of substances other than those prescribed or required for medical reasons: No Advance Directives: No Advance Directives Information Provided: No Advance Directives Date on File: 07/10/99 Patient : No service: No Current occupational status: disabled Cognitive needs: Yes (wheelchait) Hearing needs: No Vision needs: No Meds Allergies Allergy/AdvReac Type Severity Reaction Status Date / Time Latex, Natural Rubber Allergy Intermediate Rash Verified 12/12/22 14:02 Sulfa (Sulfonamide AdvReac Intermediate Stomach Verified 12/12/22 14:02 Antibiotics) Upset [SULFA (SULFONAMIDE ANTIBIOTICS)] Morphine Sulfate AdvReac Intermediate Abdominal Uncoded 12/12/22 13:51 Pain Active Medications: Current Medications Acetaminophen (Acetaminophen 325 Mg Tablet) 650 mg PO Q6H PRN PRN Reason: Pain, Mild (Pain Scale 1-3) Albuterol Sulfate (Albuterol Sulfate 90 Mcg 8 Gm Inhaler) 1 puff INHALE QID PRN PRN Reason: Shortness Of Breath Or Wheezing Artificial Tears (Artificial Tears 15 Ml Drops) 2 drop EYE-RIGHT Q4H [facility] Aspirin (Aspirin Enteric Coated 81 Mg Tablet.Dr) 81 mg PO DAILY [facility] Atorvastatin Calcium (Atorvastatin Calcium 40 Mg Tablet) 40 mg PO BEDTIME SHARON Dextrose (Dextrose 50 % 25 Gm/50 Ml Syringe) 25 gm IVPUSH Q15M PRN; Protocol PRN Reason: per Hypoglycemia Standing Ord. Docusate Sodium (Docusate Sodium 100 Mg Capsule) 100 mg PO DAILY PRN PRN Reason: Constipation Enoxaparin Sodium (Enoxaparin Sodium 40 Mg/0.4 Ml Syringe) 40 mg SUBCUT Q24H SHARON Furosemide (Furosemide 20 Mg Tablet) 20 mg PO DAILY [facility]; Protocol Glucose (Glucose Gel 15 Gm Gel..Gram.) 15 gm PO Q15M PRN; Protocol PRN Reason: per Hypoglycemia Standing Ord. Insulin Human Lispro (Insulin Lispro 100 Unit/Ml 3 Ml Vial) 0 unit SUBCUT QIDACHS [facility]; Protocol Loratadine (Loratadine 10 Mg Tablet) 10 mg PO BEDTIME [facility] Multivitamins/Vitamin C (Multivitamin Tablet) 1 tab PO DAILY [facility] Non-Formulary Medication (Ursodiol) 250 mg PO TID [facility] Ondansetron HCl (Ondansetron Hcl 4 Mg/2 Ml Vial) 4 mg IVPUSH Q8H PRN PRN Reason: Nausea and Vomiting Polyethylene Glycol (Polyethylene Glycol 3350 17 Gm Powd.Pack) 17 gm PO DAILY PRN PRN Reason: constipation Risperidone (Risperidone 1 Mg Tablet) 1 mg PO BEDTIME [facility] Senna (Sennosides 8.6 Mg Tablet) 17.2 mg PO BEDTIME [facility] Sertraline HCl (Sertraline Hcl 100 Mg Tablet) 200 mg PO DAILY [facility] Sodium Chloride (0.9 % Sodium Chloride Flush 3 Ml Syringe) 3 ml IVFLUSH QSHIFT [facility] Vitamin D (Cholecalciferol (Vitamin D3) 25 Mcg Tablet) 50 mcg PO DAILY [facility] Home Medications Medication Instructions Recorded Confirmed Last Taken Type albuterol sulfate 90 mcg/actuation 1 inh inhalation QID PRN Shortness 04/28/20 03/06/23 03/06/23 History aerosol inhaler Of Breath Or Wheezing polyethylene glycol 3350 17 gram 17 g PO DAILY PRN constipation 10/25/22 03/06/23 10/25/22 History oral powder packet (Purelax) metformin 500 mg tablet 500 mg PO BID 01/19/23 03/06/23 03/06/23 History cholecalciferol (vitamin D3) 50 50 mcg PO DAILY 03/06/23 03/06/23 03/06/23 History mcg (2,000 unit) capsule risperidone 1 mg tablet 1 mg PO BEDTIME 03/06/23 03/06/23 03/05/23 History Physical Exam Vital Signs and Narrative: Vital Signs: Last Vital Signs Temp 97.8 F 03/06/23 19:08 Pulse 69 03/06/23 19:08 Resp 14 03/06/23 19:08 BP 145/62 H 03/06/23 19:08 Pulse Ox 99 03/06/23 19:08 O2 Del Method Room Air 03/06/23 19:08 BMI result Body Mass Index 22.3 Constitutional - Awake and Alert, No apparent distress Eyes - PERRLA, EOMI Cardiovascular - S1S2, RRR, No edema Respiratory - Normal lung expansion, Normal respiratory effort, No respiratory distress, CTA bilaterally Gastrointestinal - NT / ND; +BS; No rebound or guarding Extremities - no calf tenderness bilaterally, no swelling Skin - Warm/Dry Neurological - Alert & oriented x3, right sided facial droop with slurred speech, otherwise CN II-XII in tact, 5/5 strength BUE. 4/5 strength BLE. No pronator drift. Normal finger to nose testing. Downgoing babinski, 1+ R patellar reflex, absent left patellar reflex Psychological - Appropriate affect Results Labs 03/06/23 14:41 03/06/23 14:41 Labs: Laboratory Results - last 24 hr 03/06/23 03/06/23 03/06/23 14:12 14:41 14:41 MCV 79.4 L MCH 24.6 L MCHC 31.1 RDW 15.8 Plt Count 201 MPV Not Reportable Immature Gran % (Auto) 0.4 Neut % (Auto) 65.5 Lymph % (Auto) 24.5 Converse % (Auto) 7.1 Eos % (Auto) 2.1 Baso % (Auto) 0.4 Lymph # (Auto) 1.9 Converse # (Auto) 0.6 Eos # (Auto) 0.2 Baso # (Auto) 0.0 Abs Immat Gran (auto) 0.03 Absolute Neuts (auto) 5.1 Absolute Nucleated RBC 0.000 Nucleated RBC % (auto) 0.0 PT INR Anion Gap 14 Estim Creat Clear Calc 53.6 Estimated GFR > 60 POC Glucose 210 H Random Glucose 208 H Calcium 9.5 Total Bilirubin 0.2 AST 29 ALT 27 Alkaline Phosphatase 204 H Total Protein 7.8 Albumin 3.8 03/06/23 14:41 MCV MCH MCHC RDW Plt Count MPV Immature Gran % (Auto) Neut % (Auto) Lymph % (Auto) Converse % (Auto) Eos % (Auto) Baso % (Auto) Lymph # (Auto) Converse # (Auto) Eos # (Auto) Baso # (Auto) Abs Immat Gran (auto) Absolute Neuts (auto) Absolute Nucleated RBC Nucleated RBC % (auto) PT 13.0 INR 1.1 Anion Gap Estim Creat Clear Calc Estimated GFR POC Glucose Random Glucose Calcium Total Bilirubin AST ALT Alkaline Phosphatase Total Protein Albumin Imaging Radiologist's Impressions: Impressions Head CT 03/06/23 14:10 IMPRESSION: No acute intracranial pathology. Brain MRI 03/06/23 15:50 IMPRESSION: There is a small acute white matter infarct involving the subcortical white matter of the left precentral gyrus along its mid to lateral convexity. This acute finding superimposed upon numerous chronic small vessel ischemic changes within the periventricular white matter and liana. There are also a few chronic microhemorrhages within the liana suggesting the possibility of underlying hypertensive angiopathy. 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 Acute findings superimposed upon numerous chronic small-vessel changes as well as a few chronic microhemorrhages within the liana suggestive of possible underlying hypertensive angiopathy -history recurrent CVA with sequela left-sided hemiparesis and right-sided facial droop -continues with symptoms of worsening right-sided facial droop, slurred speech, and vertigo -passed bedside swallow eval. Stroke Education requested -given 81 mg aspirin in the ED, continue 81 mg daily -neurology recommended the Pt following CVA in 10/2022 however developed subconjunctival hemorrhage and advised to hold. Per patient, her door technician is planning on resuming this -lipid panel pending, continue statin -carotid ultrasound ordered -echocardiogram ordered -neurology consult -PT/OT/EDUCATION MANAGERS eval -monitor on telemetry # hypertension -blood pressure reasonably controlled -hold antihypertensives in the setting of acute stroke # [id number] type 2 diabetes -uncontrolled, last A1c 8.5% -monitor POC -diabetic diet -Humalog on sliding scale, hold metformin # mild intermittent asthma -no acute exacerbation -albuterol p.r.n. # dyslipidemia -continue statin DVT prophylaxis-Lovenox Full code Patient requires inpatient stay at least 2 midnights for management of acute CVA with persisting deficits requiring PT/OT/EDUCATION MANAGERS, echocardiogram, expert consultation Time Spent With Patient Time: Total time managing care of this patient today ____ minutes. Quality Stroke Does the patient have a stroke diagnosis?: Yes Reason for No Anti-thrombotic by Day Two: Drug treatment not indicated VTE Prior VTE?: No VTE Risk Level:: Medical - moderate - high VTE Device Contraindication: Treatment Not Indicated VTE Drug Contraindication: N/A - Med Ordered
[2023-03-06 20:05] LABS: Cholesterol 139 mg/dL (<200); HDL Cholesterol 56 mg/dL (>40); LDL Cholesterol Calculated 63 mg/dL (<100); Triglycerides 101 mg/dL (<150)
[2023-03-06 20:49] LABS: Glucose, Whole Blood 109 mg/dL (60-115)
[2023-03-06] MEDS: risperiDONE 1 MG TABLET PO (21:25)
[2023-03-06] MEDS: Sennosides 8.6 MG TABLET 17.2 MG PO (21:25)
[2023-03-06] MEDS: Enoxaparin Sodium 40 MG/0.4 ML SYRINGE SUBCUT (21:25)
[2023-03-06] MEDS: Atorvastatin Calcium 40 MG TABLET PO (21:25)
[2023-03-06] MEDS: Loratadine 10 MG TABLET PO (21:26)
[2023-03-06] MEDS: Artificial Tears 15 ML DROPS 2 DROP EYE-RIGHT (21:45)
[2023-03-06] MEDS: UrsodioL 300 MG CAPSULE PO (21:45)
[2023-03-06 23:54] VITALS: BP 115/53; PULSE 59; RESP 11; TEMP 36.6; O2SAT 96
[2023-03-07] VITALS (7 sets, daily range): BP systolic 116–153; BP diastolic 57–73; PULSE 55–68; RESP 14–19; TEMP 36.2–36.7; O2SAT 97–99; BMI 22.3
[2023-03-07] MEDS: 0.9 % Sodium Chloride Flush 3 ML SYRINGE IVFLUSH ×4 (01:16→21:06)
[2023-03-07 05:01] LABS: MANUAL DIFF FLAG NO
[2023-03-07 05:06] LABS: Basophils Percent Auto 0.5 % (0-2); Eosinophils Absolute Auto 0.3 X10*3/uL (0.0-0.4); Eosinophils Percent Auto 3.4 % (0-4); Hematocrit 34.1 % (37.0-47.0); Hemoglobin 10.7 g/dl (12.0-16.0); Imm Gran Abs Auto 0.03 X10*3/uL (0.00-0.03); Imm Gran Pct Auto 0.4 % (0.0-0.4); Lymphocytes Percent Auto 40.1 % (20-40); Mean Corpuscular HGB Conc 31.4 g/dl (31.0-35.0); Mean Corpuscular Hemoglobin 24.9 pg (27.0-33.0); Mean Corpuscular Volume 79.3 fL (80.0-98.0); Mean Platelet Volume 13.7 fL (9.4-12.3); Monocytes Absolute Auto 0.7 X10*3/uL (0.1-1.2); Monocytes Percent Auto 9.6 % (2-11); Neutrophils Absolute Auto 3.4 x10*3/uL (2.0-8.3); Platelet Count 197 X10*3/uL (160-400); Red Cell Distribution Width 15.9 % (11.0-16.0); White Blood Count 7.4 X10*3/uL (4.8-10.8)
[2023-03-07 05:20] LABS: Anion Gap 11 (12-20); Blood Urea Nitrogen 15 mg/dL (9-16); Calcium 8.8 mg/dL (8.4-10.2); Carbon Dioxide 29 mmol/L (22-29); Chloride 103 mmol/L (96-108); Cholesterol 118 mg/dL (<200); Creatinine Clr Calc Pharmacy 60.9; Estimated Glomerular Filt Rate > 60; Glucose Random 103 mg/dL (60-115); HDL Cholesterol 47 mg/dL (>40); LDL Cholesterol Calculated 51 mg/dL (<100); Sodium 140 mmol/L (135-145); Triglycerides 100 mg/dL (<150)
[2023-03-07 05:36] LABS: Estimated Average Glucose 217 mg/dL; Hemoglobin A1c % 9.2 % (<6.0)
--- NOTE | 2023-03-07 07:00 | CA_ITS ---
Transthoracic Echocardiogram Patient (Last, First, Middle): Valerie Keenan, Gender: Female Date of : 1960 Age: 62 Procedure Date: 03/07/2023 Procedure Type: Transthoracic Echocardiogram Location: [facility] [place] Height: 152.4 cm Weight: 51.71 kg BSA: 1.47 m2 Heart Rate: bpm BP: 151 / 61 mmHg [employer] Software Developer: Referring MD: Helena Penny MD Symptoms: CVA Study Quality: Good ECG Rhythm: Sinus Conclusions: - Normal left ventricular size and systolic function. There is mildly increased left ventricular wall thickness. The visually estimated ejection fraction is between 60-65%. - E/E prime ratio is between 8 and 15 consistent with indeterminate filling pressures. - Normal right ventricular cavity size and systolic function. Findings Left Ventricle Normal left ventricular size and systolic function. There is mildly increased left ventricular wall thickness. The visually estimated ejection fraction is between 60-65%. There is no evidence of regional wall motion abnormalities. Abnormal diastolic function is noted. Spectral Doppler is indicative of an impaired relaxation filling pattern. E/E prime ratio is between 8 and 15 consistent with indeterminate filling pressures. Right Ventricle Normal right ventricular cavity size and systolic function. Atria The left atrium is normal in size. There is no evidence of interatrial shunt by agitated saline. Aortic Valve Normal aortic valve structure and function. There is no aortic valve stenosis. There is no aortic valve regurgitation. Mitral Valve Normal mitral valve structure and function. There is no mitral valve regurgitation. There is no mitral valve stenosis. Pulmonic Valve The pulmonic valve is likely normal. Tricuspid Valve Normal tricuspid valve structure. There is trace tricuspid valve regurgitation. Normal right atrial pressure. There is no evidence of pulmonary hypertension. Great Vessels All visible segments of the aorta are normal in size. The visualized portions of the pulmonary artery and branches are normal. Venous The inferior vena cava is normal in size and collapses greater than 50% with inspiration. Pericardium/Pleural There is no evidence of pericardial effusion. Prior Study Comparison No significant change compared to prior study dated: 09/09/2022. Measurements 2D Linear Measurements IVSd: 1.07 0.6-0.9/0.6-1.0 cm LVIDd: 2.81 3.9-5.3/4.2-5.9 cm LVIDd Index: 1.91 2.4-3.2/2.2-3.1 cm/m2 LVIDs: 1.88 2.0-3.6 cm LVPWd: 1.03 0.7-1.1 cm Ao Root: 2.20 2.1-3.5 cm LA Diam: 3.00 2.7-3.8/3.0-4.0 cm LAIDs Index: 2.04 1.5-2.3 cm/m2 LV Mass: 100.03 67-162/88-224 g LV Mass Index: 68.05 43-95/49-115 g/m2 LVOT Diam: 1.90 3.0+(-)1.3 cm Mitral Valve MV Pk E: 0.64 MV PK A: 0.91 MV Decel Time: 295.00 E/A: 0.70 E'Lateral: 4.39 E'Medial: 4.68 E/E' Med: 13.60 E/E' Lat: 14.50 PHT: 86.00 MVA PHT: 2.56 Decel [place]: 2.17 Aortic Valve AoV Pk Imtiaz: 1.13 AoV Mn Imtiaz: 0.73 AoV VTI: 0.34 AoV Pk Grad: 5.00 Aov Mn Grad: 3.00 MARTINE Cont.VTI: 2.02 LVOT LVOT Pk Imtiaz: 0.77 LVOT Mn Imtiaz: 0.53 LVOT VTI: 0.24 LVOT Pk Grad: 2.00 LVOT Mn Grad: 1.00 LVOT Diam: 1.90 LVOT Area: 2.84 Diastolic Function MV Pk E: 0.64 MV Pk A: 0.91 E/A: 0.70 E'Medial: 4.68 E/E' Med: 13.60 E' Laterial: 4.39 E/E' Lat: 14.50 Right Ventricle TAPSE (mm): 18.00 TVS' Imtiaz: 10.00 Tricuspid Valve TR Pk Imtiaz: 2.16 TR Pk Grad: 19.00 RA Press: 3.00 RVSP: 22.00 Great Vessels Aorta Ao Root-2D: 2.20 2.0-3.7 cm Ao Asc: 2.60 2.1-3.4 cm Pulmonary Valve PV Pk Imtiaz: 0.93 Peak PV Grad: 3.00 Updated in Other Vendor System with Status of Final Edmundo Escobedo MD electronically signed on 03/07/2023 12:55:42 PM with status of Final
[2023-03-07 07:08] LABS: Glucose, Whole Blood 108 mg/dL (60-115)
[2023-03-07] MEDS: Multivitamin TABLET 1 TAB PO (08:40)
[2023-03-07] MEDS: Cholecalciferol (Vitamin D3) 25 MCG TABLET 50 MCG PO (08:40)
[2023-03-07] MEDS: Sertraline HCL 100 MG TABLET 200 MG PO (08:41)
[2023-03-07] MEDS: Aspirin Enteric Coated 81 MG TABLET.DR PO (08:41)
[2023-03-07] MEDS: Artificial Tears 15 ML DROPS 2 DROP EYE-RIGHT ×3 (08:48→20:54)
--- NOTE | 2023-03-07 09:05 | PC.NURSE ---
respirations even and unlabored, able to take morning medications individually with no difficulty with swallowing. awaiting bed assignment at this time. neuros intact for pt baseline.
--- NOTE | 2023-03-07 10:50 | P.CNNE_ITS ---
History of Present Illness Data of Consult Service Date: 03/07/23 Primary Care Provider: Ludy Alonso MD [facility] Reason for consult: increased facial droop and trouble speaking This is a 62-year-old female with history of type 2 diabetes, asthma, diabetic polyneuropathy, diabetic retinopathy, dyslipidemia, GERD, history of recurrent CVA with sequela of left-sided hemiparesis and right sided facial droop, and hypertension presents to the ED earlier today due to increasing facial droop.? Patient also reports intractable vertigo and slurred speech.? Last known well time around 4 hours prior to arrival.? Not a tPA candidate.? Following acute ischemic CVA in 10/2022 she was started on Plavix in addition to aspir in.?Following a subconjunctival hemorrhage she was advised to hold Plavix for 1 week and resume aspirin.? She did see her take down inspector outpatient who recommended continuing to hold the Plavix and she states she has not yet resumed this.? Review of Systems Review of Systems: Follow up CVA Yes Unobtainable due to mental condition PMFSH Past Medical History Medical History BOB positive Asthma Cervical osteoarthritis CVA (cerebral vascular accident) Diabetes type 2, uncontrolled Diabetic polyneuropathy associated with type 2 diabetes mellitus Diabetic retinopathy associated with type 2 diabetes mellitus Dyslipidemia Dysphagia Fatty liver disease, nonalcoholic GERD (gastroesophageal reflux disease) History of CVA (cerebrovascular accident) History of sleep apnea History of umbilical hernia HTN (hypertension) Hypertension Hypertension Hypertensive urgency Hypoglycemia after GI (gastrointestinal) surgery Osteoarthritis of right glenohumeral joint Postural hypotension Primary biliary cholangitis Shoulder pain, right Sjogrens syndrome Subclinical hypothyroidism Family History Family History Father [place] (myocardial infarction) Diabetes mellitus Mother Diabetes mellitus CVA (cerebral vascular accident) Maternal Grandmother Stomach cancer Sister Hemorrhagic cerebrovascular accident (CVA) Surgical History Surgical History History of carpal tunnel release History of esophagogastroduodenoscopy (EGD) History of laparoscopic appendectomy History of partial hysterectomy Hx of section Hx of colonoscopy Hx of dilation and curettage Hx of gastric bypass Hx of tonsillectomy Social History Social History Household Members: Spouse Housing: House Are you a primary palliative care specialist to a significant other at home: No Do you presently have visiting nurse or other home services: Yes (Pt requires 24 hour care, She has a VNA nurse but no STUDENT LIAISON OFFICER yet in the house) Alcohol intake: never Patient Tobacco Use Status: Never used Tobacco Smoked in Last 30 Days: No e-Cigarette/Vaping Use: Never Used Second Hand Smoke Exposure: No Use of substances other than those prescribed or required for medical reasons: No Advance Directives: Yes Advance Directives on File: Yes Advance Directives Date on File: 03/07/23 Patient : No service: No Current occupational status: disabled Cognitive needs: Yes (wheelchait) Hearing needs: No Vision needs: No Meds Allergies Allergy/AdvReac Type Severity Reaction Status Date / Time Latex, Natural Rubber Allergy Intermediate Rash Verified 12/12/22 14:02 Sulfa (Sulfonamide AdvReac Intermediate Stomach Verified 12/12/22 14:02 Antibiotics) Upset [SULFA (SULFONAMIDE ANTIBIOTICS)] Morphine Sulfate AdvReac Intermediate Abdominal Uncoded 12/12/22 13:51 Pain Active Medications: Current Medications Acetaminophen (Acetaminophen 325 Mg Tablet) 650 mg PO Q6H PRN PRN Reason: Pain, Mild (Pain Scale 1-3) Albuterol Sulfate (Albuterol Sulfate 90 Mcg 8 Gm Inhaler) 1 puff INHALE QID PRN PRN Reason: Shortness Of Breath Or Wheezing Artificial Tears (Artificial Tears 15 Ml Drops) 2 drop EYE-RIGHT Q4H [facility] Last Admin: 03/07/23 08:48 Dose: 2 drop Aspirin (Aspirin Enteric Coated 81 Mg Tablet.Dr) 81 mg PO DAILY [facility] Last Admin: 03/07/23 08:41 Dose: 81 mg Atorvastatin Calcium (Atorvastatin Calcium 40 Mg Tablet) 40 mg PO BEDTIME [facility] Last Admin: 03/06/23 21:25 Dose: 40 mg Dextrose (Dextrose 50 % 25 Gm/50 Ml Syringe) 25 gm IVPUSH Q15M PRN; Protocol PRN Reason: per Hypoglycemia Standing Ord. Docusate Sodium (Docusate Sodium 100 Mg Capsule) 100 mg PO DAILY PRN PRN Reason: Constipation Enoxaparin Sodium (Enoxaparin Sodium 40 Mg/0.4 Ml Syringe) 40 mg SUBCUT Q24H [facility] Last Admin: 03/06/23 21:25 Dose: 40 mg Furosemide (Furosemide 20 Mg Tablet) 20 mg PO DAILY [facility]; Protocol Last Admin: 03/07/23 09:49 Dose: Not Given Glucose (Glucose Gel 15 Gm Gel..Gram.) 15 gm PO Q15M PRN; Protocol PRN Reason: per Hypoglycemia Standing Ord. Insulin Human Lispro (Insulin Lispro 100 Unit/Ml 3 Ml Vial) 0 unit SUBCUT QIDACHS [facility]; Protocol Last Admin: 03/07/23 07:18 Dose: Not Given Loratadine (Loratadine 10 Mg Tablet) 10 mg PO BEDTIME [facility] Last Admin: 03/06/23 21:26 Dose: 10 mg Multivitamins/Vitamin C (Multivitamin Tablet) 1 tab PO DAILY [facility] Last Admin: 03/07/23 08:40 Dose: 1 tab Ondansetron HCl (Ondansetron Hcl 4 Mg/2 Ml Vial) 4 mg IVPUSH Q8H PRN PRN Reason: Nausea and Vomiting Polyethylene Glycol (Polyethylene Glycol 3350 17 Gm Powd.Pack) 17 gm PO DAILY PRN PRN Reason: constipation Risperidone (Risperidone 1 Mg Tablet) 1 mg PO BEDTIME [facility] Last Admin: 03/06/23 21:25 Dose: 1 mg Senna (Sennosides 8.6 Mg Tablet) 17.2 mg PO BEDTIME [facility] Last Admin: 03/06/23 21:25 Dose: 17.2 mg Sertraline HCl (Sertraline Hcl 100 Mg Tablet) 200 mg PO DAILY [facility] Last Admin: 03/07/23 08:41 Dose: 200 mg Sodium Chloride (0.9 % Sodium Chloride Flush 3 Ml Syringe) 3 ml IVFLUSH QSHIFT [facility] Last Admin: 03/07/23 08:41 Dose: 3 ml Ursodiol (Ursodiol 300 Mg Capsule) 300 mg PO TID [facility] Last Admin: 03/06/23 21:45 Dose: 300 mg Vitamin D (Cholecalciferol (Vitamin D3) 25 Mcg Tablet) 50 mcg PO DAILY [facility] Last Admin: 03/07/23 08:40 Dose: 50 mcg Home Medications Medication Instructions Recorded Confirmed Last Taken Type albuterol sulfate 90 mcg/actuation 1 inh inhalation QID PRN Shortness 04/28/20 03/06/23 03/06/23 History aerosol inhaler Of Breath Or Wheezing polyethylene glycol 3350 17 gram 17 g PO DAILY PRN constipation 10/25/22 03/06/23 10/25/22 History oral powder packet (Purelax) metformin 500 mg tablet 500 mg PO BID 01/19/23 03/06/23 03/06/23 History cholecalciferol (vitamin D3) 50 50 mcg PO DAILY 03/06/23 03/06/23 03/06/23 History mcg (2,000 unit) capsule risperidone 1 mg tablet 1 mg PO BEDTIME 03/06/23 03/06/23 03/05/23 History Physical Exam Vital Signs: Vital Signs: Last Vital Signs Temp 98.0 F 03/07/23 09:09 Pulse 64 03/07/23 09:09 Resp 16 03/07/23 09:09 BP 147/63 H 03/07/23 09:09 Pulse Ox 98 03/07/23 09:09 O2 Del Method Room Air 03/07/23 09:09 BMI result Body Mass Index 22.3 Const: General: cooperative HEENT: Other: Examination the head eyes ears nose and throat showed rt facial droop which is chronic Head: Yes normal to inspection General nose exam: Normal external nose present Mouth: Normal oral and palatal mucosa present Throat: Yes posterior oropharynx normal Neck: Neck: Yes normal visual inspection and Yes full ROM Chest: Chest palpation & inspection: normal inspection of the chest Resp: Effort & Inspection: normal respiratory effort Auscultation: clear to auscultation bilaterally Cardio: Jugular venous distension: no JVD Rate: regular rate Rhythm: regular rhythm GI: Inspection: Yes normal to inspection Palpation (GI): Soft to palpation and not firm Auscultation: normal bowel sounds Neuro: Other: Alert and awake. Follows commands. Right facial droop. Speech slightly thick and slurred. Able to repeat sentences. Left spastic hemiparesis. RUE 5-/5 , RLE 3/5. Unable to test gait Results Labs 03/07/23 04:51 03/07/23 04:51 Labs: Short CBC 03/06/23 03/07/23 Range/Units 14:41 04:51 WBC 7.8 7.4 (4.8-10.8) X10*3/uL Hgb 12.3 10.7 L (12.0-16.0) g/dl Hct 39.6 34.1 L (37.0-47.0) % Plt Count 201 197 (160-400) X10*3/uL BMP 03/06/23 03/07/23 14:41 04:51 Sodium 140 140 Potassium 3.4 D 3.0 L Chloride 103 103 Carbon Dioxide 26 29 BUN 18 H 15 Creatinine 0.76 0.67 Calcium 9.5 8.8 D Liver Function 03/06/23 Range/Units 14:41 Total Bilirubin 0.2 (0.0-1.0) mg/dL AST 29 (5-31) U/L ALT 27 (0-31) U/L Alkaline Phosphatase 204 H (39-117) U/L Albumin 3.8 (3.5-5.0) g/dL Assessment and Plan (1) Acute CVA (cerebrovascular accident): Status: Acute Small subacute left parietal cortical infarct. multiple old lacunar strokes in brain stem and basal ganglia and white matter disease. Recom. Restart Plavix 75mg/ day and continue ASA 81mg. Optimise BP control and Diabetes. Continue Statins. 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 Acute findings superimposed upon numerous chronic small-vessel changes as well as a few chronic microhemorrhages within the liana suggestive of possible underlying hypertensive angiopathy -history recurrent CVA with sequela left-sided hemiparesis and right-sided facial droop -continues with symptoms of worsening right-sided facial droop, slurred speech, and vertigo -passed bedside swallow eval. Stroke Education requested -given 81 mg aspirin in the ED, continue 81 mg daily -neurology recommended the Pt following CVA in 10/2022 however developed subconjunctival hemorrhage and advised to hold. Per patient, her take down inspector is planning on resuming this -lipid panel pending, continue statin -carotid ultrasound ordered -echocardiogram ordered -neurology consult -PT/OT/PROFESSOR OF FAMILY MEDICINE eval -monitor on telemetry # hypertension -blood pressure reasonably controlled -hold antihypertensives in the setting of acute stroke # ykj-xwidnfa-juvfqulfp type 2 diabetes -uncontrolled, last A1c 8.5% -monitor POC -diabetic diet -Humalog on sliding scale, hold metformin # mild intermittent asthma -no acute exacerbation -albuterol p.r.n. # dyslipidemia -continue statin DVT prophylaxis-Lovenox Full code Patient requires inpatient stay at least 2 midnights for management of acute CVA with persisting deficits requiring PT/OT/PROFESSOR OF FAMILY MEDICINE, echocardiogram, expert consultation Time Spent With Patient Time: Total time managing care of this patient today ____ minutes. Procedures Date of Service Date of Service: 03/07/23
--- NOTE | 2023-03-07 11:43 | HO.PM.IMPN ---
Subjective Subjective Date of Service: 03/08/23 Review of Systems Follow up CVA Physical Exam Vital Signs: Vital Signs: Last Vital Signs Temp 98.0 F 03/07/23 09:09 Pulse 64 03/07/23 09:09 Resp 16 03/07/23 09:09 BP 147/63 H 03/07/23 09:09 Pulse Ox 98 03/07/23 09:09 O2 Del Method Room Air 03/07/23 09:09 BMI result Body Mass Index 22.3 Appearing in no acute distress lung sounds are clear to auscultation heart regular rate rhythm, clear S1, S2 positive bowel sounds, abdomen is soft, nontender neuro patient is alert x3, no focal deficits Objective Data Active Medications Acetaminophen (Acetaminophen 325 Mg Tablet) 650 mg PO Q6H PRN PRN Reason: Pain, Mild (Pain Scale 1-3) Albuterol Sulfate (Albuterol Sulfate 90 Mcg 8 Gm Inhaler) 1 puff INHALE QID PRN PRN Reason: Shortness Of Breath Or Wheezing Artificial Tears (Artificial Tears 15 Ml Drops) 2 drop EYE-RIGHT Q4H [facility] Last Admin: 03/07/23 08:48 Dose: 2 drop Documented By: JOSEPH Aspirin (Aspirin Enteric Coated 81 Mg Tablet.Dr) 81 mg PO DAILY [facility] Last Admin: 03/07/23 08:41 Dose: 81 mg Documented By: JOSEPH Atorvastatin Calcium (Atorvastatin Calcium 40 Mg Tablet) 40 mg PO BEDTIME [facility] Last Admin: 03/06/23 21:25 Dose: 40 mg Documented By: BENTON Dextrose (Dextrose 50 % 25 Gm/50 Ml Syringe) 25 gm IVPUSH Q15M PRN; Protocol PRN Reason: per Hypoglycemia Standing Ord. Docusate Sodium (Docusate Sodium 100 Mg Capsule) 100 mg PO DAILY PRN PRN Reason: Constipation Enoxaparin Sodium (Enoxaparin Sodium 40 Mg/0.4 Ml Syringe) 40 mg SUBCUT Q24H [facility] Last Admin: 03/06/23 21:25 Dose: 40 mg Documented By: BENTON Furosemide (Furosemide 20 Mg Tablet) 20 mg PO DAILY [facility]; Protocol Last Admin: 03/07/23 09:49 Dose: Not Given Documented By: JOSEPH Non-Admin Reason: See Note Glucose (Glucose Gel 15 Gm Gel..Gram.) 15 gm PO Q15M PRN; Protocol PRN Reason: per Hypoglycemia Standing Ord. Insulin Human Lispro (Insulin Lispro 100 Unit/Ml 3 Ml Vial) 0 unit SUBCUT QIDACHS [facility]; Protocol Last Admin: 03/07/23 07:18 Dose: Not Given Documented By: JOSEPH Non-Admin Reason: No Insulin Coverage Loratadine (Loratadine 10 Mg Tablet) 10 mg PO BEDTIME [facility] Last Admin: 03/06/23 21:26 Dose: 10 mg Documented By: BENTON Multivitamins/Vitamin C (Multivitamin Tablet) 1 tab PO DAILY [facility] Last Admin: 03/07/23 08:40 Dose: 1 tab Documented By: JOSEPH Ondansetron HCl (Ondansetron Hcl 4 Mg/2 Ml Vial) 4 mg IVPUSH Q8H PRN PRN Reason: Nausea and Vomiting Polyethylene Glycol (Polyethylene Glycol 3350 17 Gm Powd.Pack) 17 gm PO DAILY PRN PRN Reason: constipation Potassium Chloride (Potassium Chloride Packet 20 Meq Packet) 40 meq PO ONCE ONE Stop: 03/07/23 11:41 Risperidone (Risperidone 1 Mg Tablet) 1 mg PO BEDTIME [facility] Last Admin: 03/06/23 21:25 Dose: 1 mg Documented By: BENTON Senna (Sennosides 8.6 Mg Tablet) 17.2 mg PO BEDTIME [facility] Last Admin: 03/06/23 21:25 Dose: 17.2 mg Documented By: BENTON Sertraline HCl (Sertraline Hcl 100 Mg Tablet) 200 mg PO DAILY [facility] Last Admin: 03/07/23 08:41 Dose: 200 mg Documented By: JOSEPH Sodium Chloride (0.9 % Sodium Chloride Flush 3 Ml Syringe) 3 ml IVFLUSH QSHIFT [facility] Last Admin: 03/07/23 08:41 Dose: 3 ml Documented By: JOSEPH Ursodiol (Ursodiol 300 Mg Capsule) 300 mg PO TID [facility] Last Admin: 03/07/23 10:53 Dose: Not Given Documented By: JOSEPH Non-Admin Reason: Med Not Available Vitamin D (Cholecalciferol (Vitamin D3) 25 Mcg Tablet) 50 mcg PO DAILY [facility] Last Admin: 03/07/23 08:40 Dose: 50 mcg Documented By: JOSEPH Labs 03/07/23 04:51 03/07/23 04:51 Labs: Laboratory Results - last 24 hr 03/06/23 03/06/23 03/06/23 14:12 14:41 14:41 MCV 79.4 L MCH 24.6 L MCHC 31.1 RDW 15.8 Plt Count 201 MPV Not Reportable Immature Gran % (Auto) 0.4 Neut % (Auto) 65.5 Lymph % (Auto) 24.5 [place] % (Auto) 7.1 Eos % (Auto) 2.1 Baso % (Auto) 0.4 Lymph # (Auto) 1.9 [place] # (Auto) 0.6 Eos # (Auto) 0.2 Baso # (Auto) 0.0 Abs Immat Gran (auto) 0.03 Absolute Neuts (auto) 5.1 Absolute Nucleated RBC 0.000 Nucleated RBC % (auto) 0.0 PT INR Anion Gap 14 Estim Creat Clear Calc 53.6 Estimated GFR > 60 POC Glucose 210 H Random Glucose 208 H Estimat Average Glucose Hemoglobin A1c % Calcium 9.5 Total Bilirubin 0.2 AST 29 ALT 27 Alkaline Phosphatase 204 H Total Protein 7.8 Albumin 3.8 Triglycerides 101 Cholesterol 139 LDL Cholesterol, Calc 63 HDL Cholesterol 56 03/06/23 03/06/23 03/06/23 14:41 14:41 20:43 MCV MCH MCHC RDW Plt Count MPV Immature Gran % (Auto) Neut % (Auto) Lymph % (Auto) [place] % (Auto) Eos % (Auto) Baso % (Auto) Lymph # (Auto) [place] # (Auto) Eos # (Auto) Baso # (Auto) Abs Immat Gran (auto) Absolute Neuts (auto) Absolute Nucleated RBC Nucleated RBC % (auto) PT 13.0 INR 1.1 Anion Gap Estim Creat Clear Calc Estimated GFR POC Glucose 109 Random Glucose Estimat Average Glucose 217 Hemoglobin A1c % 9.2 H Calcium Total Bilirubin AST ALT Alkaline Phosphatase Total Protein Albumin Triglycerides Cholesterol LDL Cholesterol, Calc HDL Cholesterol 03/07/23 03/07/23 03/07/23 04:51 04:51 07:03 MCV 79.3 L MCH 24.9 L MCHC 31.4 RDW 15.9 Plt Count 197 MPV 13.7 H Immature Gran % (Auto) 0.4 Neut % (Auto) 46.0 Lymph % (Auto) 40.1 H [place] % (Auto) 9.6 Eos % (Auto) 3.4 Baso % (Auto) 0.5 Lymph # (Auto) 3.0 [place] # (Auto) 0.7 Eos # (Auto) 0.3 Baso # (Auto) 0.0 Abs Immat Gran (auto) 0.03 Absolute Neuts (auto) 3.4 Absolute Nucleated RBC 0.000 Nucleated RBC % (auto) 0.0 PT INR Anion Gap 11 L Estim Creat Clear Calc 60.9 Estimated GFR > 60 POC Glucose 108 Random Glucose 103 Estimat Average Glucose Hemoglobin A1c % Calcium 8.8 D Total Bilirubin AST ALT Alkaline Phosphatase Total Protein Albumin Triglycerides 100 Cholesterol 118 LDL Cholesterol, Calc 51 HDL Cholesterol 47 Assessment and Plan (1) Acute CVA (cerebrovascular accident): Status: Acute Plan 62-year-old female with history of bbm-wmzebur-[id number] type 2 diabetes, mild intermittent asthma, diabetic polyneuropathy, diabetic poly retinopathy, dyslipidemia, GERD, history of 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 right-sided facial droop, slurred speech, and vertigo LDL 51, continue statin carotid ultrasound> no significant stenosis echocardiogram> neurology consult> PT rec STR/OT rec STR/RN TRAUMA eval pending hypertension blood pressure reasonably controlled hold antihypertensives in the setting of acute stroke [id number]-whgadglte type 2 diabetes sliding scale, ADA diet mild intermittent asthma no acute exacerbation albuterol p.r.n. dyslipidemia continue statin DVT prophylaxis-Lovenox Attending Dr. Mix Full code Time Spent With Patient Time: Total time managing care of this patient today ____ minutes. Quality Stroke Does the patient have a stroke diagnosis?: Yes Reason for No Anti-thrombotic by Day Two: Drug treatment not indicated VTE Prior VTE?: No VTE Risk Level:: Medical - moderate - high VTE Device Contraindication: Treatment Not Indicated VTE Drug Contraindication: N/A - Med Ordered
--- NOTE | 2023-03-07 11:59 | PC.NURSE ---
cardiology performed echo at bedside. daughter now at bedside, update given to daughter.
[2023-03-07 13:10] LABS: Glucose, Whole Blood 100 mg/dL (60-115)
[2023-03-07] MEDS: Potassium Chloride Packet 20 MEQ PACKET 40 MEQ PO ×2 (13:10→22:02)
[2023-03-07] MEDS: UrsodioL 300 MG CAPSULE PO ×2 (14:10→20:54)
--- NOTE | 2023-03-07 14:29 | MHC.CM.PN ---
PT is recommending STR. Patient lives with her /HCP, uses a walker, and has AIR TOOL OPERATOR services. CM has initiated and will follow for dc planning. PCP is Dr. Ludy Alonso.
--- NOTE | 2023-03-07 14:46 | MHC.SPEECHCO ---
PROPOSAL MANAGER WRITER recommending CHOPPED/ADVANCED (NDD3) solids with THIN LIQUIDS. Ensure aspiration precautions. Assist with tray set-up. PROPOSAL MANAGER WRITER will follow-up for Speech/Language recommendations at follow-up.
[2023-03-07 16:39] LABS: Glucose, Whole Blood 172 mg/dL (60-115)
[2023-03-07] MEDS: Insulin Lispro 100 UNIT/ML 3 ML VIAL SUBCUT (17:28)
[2023-03-07 20:45] LABS: Glucose, Whole Blood 147 mg/dL (60-115)
[2023-03-07] MEDS: risperiDONE 1 MG TABLET PO (20:54)
[2023-03-07] MEDS: Enoxaparin Sodium 40 MG/0.4 ML SYRINGE SUBCUT (20:54)
[2023-03-07] MEDS: Sennosides 8.6 MG TABLET 17.2 MG PO (20:54)
[2023-03-07] MEDS: Loratadine 10 MG TABLET PO (20:54)
[2023-03-07] MEDS: Atorvastatin Calcium 40 MG TABLET PO (20:54)
[2023-03-08 03:28] VITALS: BP 108/61; PULSE 56; RESP 18; TEMP 36.4; O2SAT 95
[2023-03-08] MEDS: Artificial Tears 15 ML DROPS 2 DROP EYE-RIGHT ×2 (04:29→07:41)
[2023-03-08 07:07] LABS: Glucose, Whole Blood 187 mg/dL (60-115)
[2023-03-08 07:31] VITALS: BP 148/72; PULSE 56; RESP 16; TEMP 36.5; O2SAT 96
[2023-03-08] MEDS: Acetaminophen 325 MG TABLET 650 MG PO (07:39)
[2023-03-08] MEDS: Insulin Lispro 100 UNIT/ML 3 ML VIAL SUBCUT ×2 (07:40→12:00)
[2023-03-08] MEDS: Aspirin Enteric Coated 81 MG TABLET.DR PO (07:41)
[2023-03-08] MEDS: UrsodioL 300 MG CAPSULE PO (07:41)
[2023-03-08] MEDS: Multivitamin TABLET 1 TAB PO (07:41)
[2023-03-08] MEDS: Cholecalciferol (Vitamin D3) 25 MCG TABLET 50 MCG PO (07:41)
[2023-03-08] MEDS: Sertraline HCL 100 MG TABLET 200 MG PO (07:41)
[2023-03-08] MEDS: Clopidogrel Bisulfate 75 MG TABLET PO (07:42)
[2023-03-08] MEDS: amLODIPine Besylate 5 MG TABLET PO (07:42)
[2023-03-08] MEDS: Losartan Potassium 25 MG TABLET 12.5 MG PO (07:42)
[2023-03-08] MEDS: Furosemide 20 MG TABLET PO (07:42)
--- NOTE | 2023-03-08 09:35 | MHC.CM.PN ---
Per CHEMICAL PLANT WORKER, Patient is medically cleared for dc to home today, with services. A referral was made to [facility], who has been made aware of today's dc. BERNABE spoke with Patient's HCP/Maddie @ [phone] and per her request, a [facility] has been arranged to take Patient home today at 1PM.
--- NOTE | 2023-03-08 11:16 | P.DS_ITS ---
DS: Providers Provider Date of Service: 03/08/23 Date of admission: 03/06/23 20:20 Primary care physician: Ludy Alonso MD Consults: 03/06/23 19:43 Consult to Neurology Routine Consulting Provider: Consuelo Delgado Reason for consultation: CVA DS: Diagnosis Discharge Diagnosis (1) Acute CVA (cerebrovascular accident): Status: Acute DS: Summary Hospital Course Hospital Course: HP as per admitting provider. 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 Patient also reports intractable vertigo and slurred speech.? Last known well time around 4 hours prior to arrival.? Not a tPA candidate.? Following acute ischemic CVA in 10/2022 she was started on Plavix in addition to aspirin.? No LV AO noted at that time.? However ended up readmitted for subconjunctival hemorrhage and was advised on discharge hold Plavix for 1 week per resume aspirin.? She did see her wood boatbuilder apprentice outpatient who recommended continuing to hold the Plavix and she states she has not yet resumed this.? She states the wood boatbuilder apprentice plan was to resume soon however.? Bleeding of the eye appears to have resolved fully. The patient is also reporting up to 5 episodes diarrhea daily x several days with mild diffuse abd pain. No nausea, vomiting, melena, or hematochezia.? Denies any new focal paresthesias or weakness, no dysphagia, visual changes.On arrival, patient hypertensive to 173/73, vitals otherwise normal.? Hematology studies unremarkable.? Renal function baseline, electrolyte levels normal.? Glucose 210.? Last hemoglobin A1c 8.5%.? Troponin 5.4.? Lipid panel pending.? Head CT was negative for any acute intracranial abnormality.? Brain MRI showed small acute white matter infarct involving the subcortical white matter of the left precentral gyrus along its mid to lateral convexity.? This acute finding superimposed upon numerous chronic small vessel ischemic changes in the periventricular white matter and liana as well as a few chronic microhemorrhages within the liana suggesting possibility of underlying hypertensive angiopathy.? She did pass bedside nursing swallow evaluation in the ED. in the ED was given 81 mg aspirin. Acute CVA with history of past CVA with chronic right sided facial droop, slurred speech and vertigo. Patient's symptoms have improved some. Her speech is clear. She lives with family who takes care of her 24 hours a day. LDL 51, carotid ultrasound showed no significant stenosis, Echocardiogram showed EF of 60-65%. seen evaluated by Neurology with recommendation to continue aspirin and add Plavix. Plan is for discharge home with physical therapy. hypertension. Stable blood pressure. Continue home medications Diabetes mellitus type 2. Continue medications Mild intermittent asthma. No exacerbation. Continue home medications dyslipidemia continue statin Time Spent with Patient Time attestation: Total time managing care of this patient today ____ minutes. Discharge coordination time: Greater than 30 minutes Quality: Safe Use of Opioids Does Pt have an Active Cancer Diagnosis on the Problem List?: No Quality: Stroke Does the patient have a stroke diagnosis?: No Physical Exam Vital Signs: Vital Signs: Last Vital Signs Temp 97.7 F 03/08/23 07:31 Pulse 56 03/08/23 07:31 Resp 16 03/08/23 07:31 BP 148/72 H 03/08/23 07:31 Pulse Ox 96 03/08/23 07:31 O2 Del Method Room Air 03/08/23 07:31 BMI result Body Mass Index 22.3 Appearing in no acute distress head is normocephalic atraumatic eyes pupils are PERRLA sclera is anicteric mouth throat mucous membranes are intact and moist neck is supple no lymphadenopathy, no JVD noted lung sounds are clear to auscultation heart regular rate rhythm, clear S1, S2 positive bowel sounds, abdomen is soft, nontender neuro patient is alert , mild right-sided facial droop with right-sided weakness DS: Data Data Completed and Pending Labs on day of discharge: Laboratory Results - last 24 hr 03/07/23 03/07/23 03/07/23 13:07 16:31 20:37 POC Glucose 100 172 H 147 H 03/08/23 06:59 POC Glucose 187 H Discharge Plan Discharge Anticipated Discharge Date/Time: 03/08/23 11:08 Patient Disposition: Home Health Service Discharge Diagnosis: stroke Referrals: Monica GOOD [Outside] - 1 Week Po,Ludy Minaya MD [Primary Care Provider] - 1 Week Discharge Medications: Continued (DME) Transport wheelchair See Rx Instructions .Route .MEDSUPPLY Qty: 1 0RF Rx Instructions: As directed multivitamin Tablet 1 tab PO DAILY 90 Days Qty: 90 3RF (DME) lancets [FreeStyle Lancets] [facility] See Rx Instructions .ROUTE .MEDSUPPLY Qty: 100 3RF Rx Instructions: As directed check the blood sugar once a day aspirin 81 mg tablet,delayed release (DR/EC) 81 mg PO DAILY Qty: 90 3RF (DME) adult diapers size small petite See Rx Instructions .Route .MEDSUPPLY Qty: 90 12RF Rx Instructions: As directed (DME) FreeStyle Lite Strips Strip See Rx Instructions .ROUTE .MEDSUPPLY Qty: 100 11RF Rx Instructions: As directed 3 x/day (DME) Adult pull ups medium package See Rx Instructions .Route .MEDSUPPLY Qty: 90 11RF Rx Instructions: 8 Per day (PRN), 11 refills for 12 months. (DME) stair lift See Rx Instructions .Route .MEDSUPPLY Qty: 1 0RF Rx Instructions: As directed loratadine 10 mg tablet 10 mg PO BEDTIME Qty: 90 0RF sennosides [senna] 8.6 mg tablet 17.2 mg PO BEDTIME Qty: 90 0RF (DME) disposable gloves [Disposable Latex-Free Gloves] [facility] See Rx Instructions .Route Qty: 1000 3RF Rx Instructions: As directed sertraline 100 mg tablet 200 mg PO DAILY 30 Days Qty: 180 1RF atorvastatin 40 mg tablet 40 mg PO BEDTIME Qty: 90 0RF ursodiol 250 mg tablet 250 mg PO TID Qty: 270 0RF metformin 500 mg tablet 500 mg PO BID amlodipine 5 mg Tablet 5 mg PO DAILY Qty: 90 0RF Protocol: Hold for SBP< HOLD for SBP < : 90 losartan 25 mg Tablet 12.5 mg PO DAILY Qty: 90 0RF Protocol: Hold for SBP< HOLD for SBP < : 90 Artificial Tears(en-civg-fdne) 1-0.2-0.2 % Drops 2 drp ophthalmic-Right Q4H Qty: 15 2RF polyethylene glycol 3350 [Purelax] 17 gram powder in packet 17 g PO DAILY PRN (Reason: constipation) risperidone 1 mg tablet 1 mg PO BEDTIME cholecalciferol (vitamin D3) 50 mcg (2,000 unit) capsule 50 mcg PO DAILY (DME) pen needle, diabetic [Comfort EZ Pen [place]] 31 gauge x 3/16 needle See Rx Instructions .Route Qty: 100 3RF Rx Instructions: As directed (DME) MOUTH GUARD See Rx Instructions .Route .MEDSUPPLY Qty: 1 0RF Rx Instructions: As directed silver sulfadiazine [Silvadene] 1 % cream 1 appl topical DAILY PRN (Reason: wound healing) 30 Days Qty: 85 0RF Rx Instructions: apply a 1.5 mm thickness (DME) Walker with seat and wheels See Rx Instructions .Route .MEDSUPPLY Qty: 1 0RF Rx Instructions: As directed furosemide [Lasix] 20 mg tablet 20 mg PO DAILY Qty: 90 0RF albuterol sulfate 90 mcg/actuation HFA aerosol inhaler 1 inh inhalation QID PRN (Reason: Shortness Of Breath Or Wheezing) Discharge Orders: Discharge Order (Routine); Ordered 03/08/23 Ordered By: Divina Courtney Diet: Advance to usual diet Activity on Discharge: As tolerated Stand Alone Forms: Patient Portal Discharge page Care Plan Goals: home physical therapy Health Concerns: stroke Plan of Treatment: Follow-up with primary care provider as needed Take all medications as prescribed Assessment: see discharge summary
--- NOTE | 2023-03-08 11:16 | P.F2F_ITS ---
Service Date Service Date: 03/08/23 Encounter Date of encounter: 03/08/23 Reasons for Services Signs and symptoms assessed: Stroke Reason for shelter: CV/CP assess and/or care Reason for physical therapy: home safety and mobility and gait/transfer training Homebound: Leaving the home is medically contraindicated at this time without the asist of a device and/or another person due th the listed conditions above and below. Reason homebound: unsteady gait / fall risk Certification: Based on the above findings, I certify that this patient is confined to the home and needs intermittent shelter care, physical therapy and/or speech therapy, or continues to need occupational therapy. The patient is under my care, and I have initiated the establishment of the plan of care. The patient will be followed by a physician who will periodically review the plan of care. Time Spent With Patient Time: Total time managing care of this patient today ____ minutes.
[2023-03-08 11:55] LABS: Glucose, Whole Blood 258 mg/dL (60-115)
[2023-03-08 12:00] VITALS: BP 110/59; PULSE 62; RESP 20; TEMP 36.2; O2SAT 99
== END 2023-03-08 13:21 | disposition home health service (06) | DRG 45 ==
LOC: HO.ED 16:30 → HO.EDOVER 20:02 → HO.IMC 03-07 12:23
PROVIDERS: Student in an Organized Health Care Education/Training Program; Admitting Provider Physician Assistant; Emergency Provider Emergency Medicine; PCP Internal Medicine; Visit Provider Nurse Practitioner Acute Care
DX: I63.9 Cerebral infarction, unspecified (principal); E11.42 Type 2 diabetes mellitus with diabetic polyneuropathy; I69.354 Hemiplegia and hemiparesis following cerebral infarction affecting left non-dominant side; K21.9 Gastro-esophageal reflux disease without esophagitis; J45.20 Mild intermittent asthma, uncomplicated; R29.701 NIHSS score 1; E78.5 Hyperlipidemia, unspecified; I69.392 Facial weakness following cerebral infarction; Z98.84 Bariatric surgery status; Z79.82 Long term (current) use of aspirin; Z91.040 Latex allergy status; Z79.84 Long term (current) use of oral hypoglycemic drugs; Z79.899 Other long term (current) drug therapy
CPT/HCPCS: 36415; 70450; 70551; 80048; 80053; 80061; 82947; 83036; 84484; 85025; 85610; 92610; 93005; 93306; 93880; 97112; 97162; 97166; 97530; 99285; J1650

== ENCOUNTER 2023-03-06 20:20 | Outpatient (BNV) | payer OTHER, SELFPAY | END 2023-03-07 07:00 | PROVIDERS: Admitting Provider Physician Assistant; Emergency Provider Emergency Medicine; PCP Internal Medicine; Visit Provider Internal Medicine Cardiovascular Disease | DX: I63.9 Cerebral infarction, unspecified (principal) | CPT/HCPCS: 93306 ==

== ENCOUNTER → 2023-03-06 20:20 | Outpatient (BNV) | payer OTHER, SELFPAY | PROVIDERS: Admitting Provider Physician Assistant; Emergency Provider Emergency Medicine; PCP Internal Medicine; Visit Provider Physician Assistant | DX: I63.9 Cerebral infarction, unspecified (principal) | CPT/HCPCS: 99223; 99232; 99239; G0180 ==

== ENCOUNTER 2023-03-28 13:02 | Outpatient (AMB) | payer OTHER, SELFPAY ==
[2023-03-28 13:06] VITALS: BP 110/66; PULSE 63; O2SAT 94; BMI 21.8
--- NOTE | 2023-03-28 13:06 | MHC.PC.OV ---
Vital Signs 03/28/23 13:06 Height 5 ft Weight 111 lb 8.862 oz BMI 21.8 BP 110/66 Blood Pressure Location Lt brachial Position Sitting Pulse 63 Pulse Source Pulse Oximeter Pulse Oximetry (%) 94 Oxygen Delivery Method Room Air Intake Visit Reasons: DM Intake Note: Patient here for a follow up DM, HDF from [facility] on 03/08 stroke Manager People Required: No Accompanied by: Daughter Allergies Latex, Natural Rubber Allergy (Intermediate, Verified 03/28/23 13:09) Rash Sulfa (Sulfonamide Antibiotics) [SULFA (SULFONAMIDE ANTIBIOTICS)] Adverse Reaction (Intermediate, Verified 03/28/23 13:09) Stomach Upset Morphine Sulfate Adverse Reaction (Intermediate, Uncoded 12/12/22 13:51) Abdominal Pain Medication List - Last Reconciled 03/28/23 by Ludy Alonso MD [adult diapers size small petite As directed] [Adult pull ups 8 Per day (PRN), 11 refills for 12 months. ] albuterol sulfate 90 mcg/actuation 1 inh inhalation QID PRN amlodipine 5 mg See Protocol PO DAILY aspirin 81 mg PO DAILY atorvastatin 40 mg PO BEDTIME blood sugar diagnostic (FreeStyle Lite Strips) As directed 3 x/day cholecalciferol (vitamin D3) 50 mcg PO DAILY clopidogrel 75 mg PO DAILY disposable gloves (Disposable Latex-Free Gloves) As directed furosemide (Lasix) 20 mg PO DAILY lancets (FreeStyle Lancets) As directed check the blood sugar once a day loratadine 10 mg PO BEDTIME losartan 12.5 mg See Protocol PO DAILY metformin 500 mg PO BID [MOUTH GUARD As directed] multivitamin 1 tab PO DAILY 90 days peg [id number]-[id number] 1-0.2-0.2 % (Artificial Tears ([id number])) 2 drps ophthalmic-Right Q4H pen needle, diabetic (Comfort EZ Pen [place]) As directed polyethylene glycol 3350 (Purelax) 17 grams PO DAILY PRN risperidone 1 mg PO BEDTIME sennosides (senna) 17.2 mg (2 x 8.6 mg) PO BEDTIME sertraline 200 mg (2 x 100 mg) PO DAILY 30 days silver sulfadiazine 1% (Silvadene) 1 appl topical DAILY PRN 30 days [stair lift As directed] [Transport wheelchair As directed] ursodiol 250 mg PO TID [Walker with seat and wheels As directed] [WIPES As directed] Tobacco use date assessed: 02/15/23 Fall risk assessment: No Falls in past year Last assessed Fall Risk: 03/28/23 Dental Screening Dental Screen Date: 03/28/23 Did you have a dental visit in the last 12 months?: No Did you have a dental problem in the last 6 months where you did not have access to dental care?: No Was dental information given to patient?: Patient has dentist HPI DM HPI Details 62-year-old female with a history of CVA diabetes mellitus hypercholesterolemia hypertension last seen by the nurse practitioner in October 2022November admission presenting after stroke left hemiparesis presented with right sided weakness with right-sided facial droop placed on Plavix and aspirin.. January 2023 was in the hospital with blood in her right eye subconjunctival hemorrhage and the Plavix and aspirin was held. review of the notes hospitalization in 03/06/2023 presenting to the emergency room for facial droop slurred speech and dizziness.. Patient has had CVA ischemic October 2022 and was started on Plavix in addition to aspirin Plavix was held due to some conjunctival hemorrhage. Brain MRI did show small acute white matter infarct subcortical white matter of the left precentral gyrus along its mid to lateral convexity carotid ultrasounds negative echocardiogram EF of 60-65% neurology advise continue with aspirin and Plavix, patient also was seen here in the office in December for pressure ulcer on the lower back. This has healed. Family is asking for letter to get the carpeting off as she has asthma and with her complicated history letter was printed. Patient comes in on wheelchair but family saying that she does walk at home preventing the pressure sores. As for the diabetes hemoglobin A1c is high at 8.5 in February will add a car [place] as the family saying she was previously taking it and the sugars have been controlled. [facility] Medical History (Updated 03/28/23 @ 13:30 by Ludy Alonso MD) History of CVA (cerebrovascular accident) Dysphagia Hypertension Hypertensive urgency Cervical osteoarthritis Osteoarthritis of right glenohumeral joint Shoulder pain, right BOB positive CVA (cerebral vascular accident) HTN (hypertension) Primary biliary cholangitis Fatty liver disease, nonalcoholic History of umbilical hernia Postural hypotension Sjogrens syndrome GERD (gastroesophageal reflux disease) History of sleep apnea Asthma Subclinical hypothyroidism Hypertension Dyslipidemia Diabetic retinopathy associated with type 2 diabetes mellitus Diabetic polyneuropathy associated with type 2 diabetes mellitus Hypoglycemia after GI (gastrointestinal) surgery Diabetes type 2, uncontrolled Surgical History Hx of dilation and curettage Hx of tonsillectomy History of laparoscopic appendectomy History of carpal tunnel release Hx of colonoscopy History of esophagogastroduodenoscopy (EGD) History of partial hysterectomy Hx of section Hx of gastric bypass Family History Father ND (myocardial infarction) Diabetes mellitus Mother Diabetes mellitus CVA (cerebral vascular accident) Maternal Grandmother Stomach cancer Sister Hemorrhagic cerebrovascular accident (CVA) Social History Household Members: Spouse Housing: House Are you a primary transitional care manager to a significant other at home: No Do you presently have visiting nurse or other home services: Yes (Pt requires 24 hour care, She has a VNA nurse but no MELANGEUR OPERATOR yet in the house) Alcohol intake: never Patient Tobacco Use Status: Never used Tobacco e-Cigarette/Vaping Use: Never Used Second Hand Smoke Exposure: No Advance Directives Date on File: 03/07/23 service: No Current occupational status: disabled Cognitive needs: Yes (wheelchait) Hearing needs: No Vision needs: No Questionnaire Thrive Questionnaire Date Thrive assessed: 03/07/23 DYLAN-7 AMB Questionnaire DYLAN-7 Date DYLAN - 7 assessed: 10/17/22 Source: Developed by Drs. Ari Patrick, Bonny Hanks, David Rebollar and colleagues, with an educational kevin from [employer]([facility]). Physical exam (Primary Care) Vital Signs: Last Vital Signs Pulse 63 03/28/23 13:06 BP 110/66 03/28/23 13:06 Pulse Ox 94 03/28/23 13:06 Oxygen Delivery Method Room Air 03/28/23 13:06 BMI result Body Mass Index 21.8 Tobacco/Smoking Status: Tobacco use Status Tobacco use date assessed 02/15/23 03/28/23 13:08 Patient Tobacco Use Status Never used Tobacco 03/28/23 13:08 e-Cigarette/Vaping Use Never Used 03/28/23 13:08 Thrive Assessment: Date of Thrive Assessment Date Thrive assessed 03/07/23 03/28/23 13:08 Const General: alert; No acute distress Eyes Conjunctivae: conjunctivae normal Resp Auscultation: clear to auscultation bilaterally Cardio Rate: regular rate Rhythm: regular rhythm GI Inspection: Yes normal to inspection Extrem General: Yes normal to inspection and No edema Assessment and Plan Assessment & Plan (1) History of CVA (cerebrovascular accident): Comment: Chronic lacunar infarcts MRI October 2020> Problems with balance. Ambulates with walker, L sided weakness, slurred speech Code(s): Z86.73 - Personal history of transient ischemic attack (TIA), and cerebral infarction without residual deficits Plan: Continue with aspirin and Plavix (2) Coronary artery disease: Comment: NSTEMI 2017 Code(s): I25.10 - Atherosclerotic heart disease of [place] coronary artery without angina pectoris Qualifiers: Coronary Disease-Associated Artery/Lesion type: [place] artery Associated angina: without angina Plan: Control the cholesterol, weight, blood pressure, diabetes (3) Type 2 diabetes mellitus with hyperglycemia: Code(s): E11.65 - Type 2 diabetes mellitus with hyperglycemia Qualifiers: Diabetes mellitus residential insulin use: without residential use Qualified Code(s): E11.65 - Type 2 diabetes mellitus with hyperglycemia Plan: Decrease the amount of carbohydrate intake, pasta, bread, rice and potatoes are all sugar and that is aside from all the sweet stuff, remember that fruits are good but they are Sweet also. Hemoglobin A1c goal of less than 7.0 patient is on metformin 500 twice a day. Family states has been on ACARBOSE before and the sugar has been controlled and so patient is placed on this medication. (4) Obstructive sleep apnea: Comment: on CPAP Q night > 6 hours and benefits Patient is being followed up at [facility]. Code(s): G47.33 - Obstructive sleep apnea (adult) (pediatric) Plan: Continue to use the CPAP more than 4 hours a night and benefits from this (5) GERD (gastroesophageal reflux disease): Code(s): K21.9 - Gastro-esophageal reflux disease without esophagitis Plan: Avoid the foods that causes that usually spicy foods, tomato products, juices, coffee, soda and foods that your sensitive to. After eating do not lie down, allow 3-4 hours before in lie down. And keep the head of bed above 30 degrees to avoid the acid from going up. (6) Hypertension: Code(s): I10 - Essential (primary) hypertension Qualifiers: Hypertension type: primary hypertension Qualified Code(s): I10 - Essential (primary) hypertension Plan: Continue with blood pressure medication. Decrease salt intake and exercise patient takes losartan 12.5 mg once a day amlodipine 5 mg once a day (7) Hypercholesterolemia: Code(s): E78.00 - Pure hypercholesterolemia, unspecified Plan: Avoid fried foods, chicken skin, eggs, butter margarine, pastries and meat. Be it pork or beef they have a lot of cholesterol LDL goal of less than 70. February 2023 last blood work patient is on atorvastatin 40 mg once a day (8) Internal carotid artery stenosis: Code(s): I65.29 - Occlusion and stenosis of unspecified carotid artery Plan: With the CT scan showing internal carotid artery stenosis, referral to vascular surgeon (9) Hypokalemia: Code(s): E87.6 - Hypokalemia Plan: Repeat blood work Orders: Orders Complete Blood Count Auto Diff Today I65.29 - Occlusion and stenosis of unspecified carotid artery Reticulocyte Count Today I65.29 - Occlusion and stenosis of unspecified carotid artery Ferritin Today I65.29 - Occlusion and stenosis of unspecified carotid artery Comprehensive Met. Panel Today I65.29 - Occlusion and stenosis of unspecified carotid artery IRON PROFILE Today I65.29 - Occlusion and stenosis of unspecified carotid artery Vitamin B12 and Folate Today I65.29 - Occlusion and stenosis of unspecified carotid artery Referrals Vascular Surgery Referral I65.29 - Occlusion and stenosis of unspecified carotid artery Medications: New [WIPES] As directed 1 ea 12RF R15.9 - Full incontinence of feces, Z86.73 - Personal history of transient ischemic attack (TIA), and cerebral infarction without residual deficits acarbose 50 mg PO TID 90 tabs 4RF E11.65 - Type 2 diabetes mellitus with hyperglycemia Refilled aspirin 81 mg PO DAILY 90 tabs 3RF I25.10 - Atherosclerotic heart disease of [place] coronary artery without angina pectoris Coding Level of Care Code Est Pt Level 4 (86359) Diagnoses History of CVA (cerebrovascular accident) Z86.73 Coronary artery disease I25.10 Coronary Disease-Associated Artery/Lesion type: [place] artery Associated angina: without angina Type 2 diabetes mellitus with hyperglycemia, without long-term current use of insulin E11.65 Diabetes mellitus terminal clerk insulin use: without residential use Obstructive sleep apnea G47.33 GERD (gastroesophageal reflux disease) K21.9 Primary hypertension I10 Hypertension type: primary hypertension Hypercholesterolemia E78.00 Internal carotid artery stenosis I65.29 Hypokalemia E87.6
== END 2023-03-28 13:50 | disposition home or self-care (01) ==
PROVIDERS: PCP Internal Medicine; Visit Provider Internal Medicine
DX: E11.65 Type 2 diabetes mellitus with hyperglycemia (principal); Z86.73 Personal history of transient ischemic attack (TIA), and cerebral infarction without residual deficits; K21.9 Gastro-esophageal reflux disease without esophagitis; I10 Essential (primary) hypertension; I25.10 Atherosclerotic heart disease of native coronary artery without angina pectoris; G47.33 Obstructive sleep apnea (adult) (pediatric); E78.00 Pure hypercholesterolemia, unspecified; I65.29 Occlusion and stenosis of unspecified carotid artery; E87.6 Hypokalemia
CPT/HCPCS: 99214

== ENCOUNTER 2023-04-03 10:57 | Outpatient (REF) | payer OTHER, SELFPAY | END 2023-04-03 10:58 | disposition home or self-care (01) | LOC: HO.MAMMO 10:57 | PROVIDERS: PCP Internal Medicine; Visit Provider Internal Medicine | DX: Z12.31 Encounter for screening mammogram for malignant neoplasm of breast (principal) | CPT/HCPCS: 77063; 77067 ==

== ENCOUNTER → 2023-04-03 11:00 | Outpatient (BNV) | payer OTHER, SELFPAY | PROVIDERS: PCP Internal Medicine; Visit Provider Radiology Diagnostic Radiology | DX: Z12.31 Encounter for screening mammogram for malignant neoplasm of breast (principal) | CPT/HCPCS: 77063; 77067 ==

== ENCOUNTER 2023-04-13 12:29 | Inpatient (IN) | payer OTHER, SELFPAY ==
[2023-04-13 12:44] VITALS: BP 168/65; PULSE 72; RESP 17; TEMP 36.6; O2SAT 97; BMI 22.8
--- NOTE | 2023-04-13 12:57 | ECG_ITS ---
Test Reason : stroke Blood Pressure : / mmHG Vent. Rate : 069 BPM Atrial Rate : 069 BPM P-R Int : 172 ms QRS Dur : 070 ms QT Int : 420 ms P-R-T Axes : 044 -08 097 degrees QTc Int : 450 ms Normal sinus rhythm Minimal voltage criteria for LVH, may be normal variant ( R in aVL ) Abnormal QRS-T angle, consider primary T wave abnormality Abnormal ECG When compared with ECG of 06-MAR-2023 14:27, No significant change was found Referred By: Monico Oquendo Electronically Signed By:BONY HANSON
--- NOTE | 2023-04-13 12:57 | ED.NEUROSD ---
HPI - Neuro Symptoms/Deficit General Chief Complaint: Stroke Stated Complaint: stroke alert,dizzy,slurr,r weak,on plavix per ems Time Seen by Provider: 04/13/23 12:34 Source: patient Mode of arrival: EMS Limitations: no limitations History of Present Illness HPI Narrative: This is 62 years old female with hx of ,multiple stroke last March 06 presented to the emergency department with dizziness weakness possible new stroke. She is awake and alert she is able to give me the history she tells me that the she is feeling dizzy and weak. At baseline she Onset (ago): hour(s) (4) Location: other ([facility]) History of same: Yes Severity: mild Quality: weak Relieving factors: none Context: gradual onset Related Data Home Medications Medication Instructions Recorded Confirmed albuterol sulfate 90 mcg/actuation 1 inh inhalation QID PRN Shortness 04/28/20 03/28/23 aerosol inhaler Of Breath Or Wheezing polyethylene glycol 3350 17 gram 17 g PO DAILY PRN constipation 10/25/22 03/28/23 oral powder packet (Purelax) metformin 500 mg tablet 500 mg PO BID 01/19/23 03/28/23 cholecalciferol (vitamin D3) 50 50 mcg PO DAILY 03/06/23 03/28/23 mcg (2,000 unit) capsule Previous Rx's Medication Instructions Recorded pen needle, diabetic 31 gauge x #100 ea 02/24/2109/22 (Comfort EZ Pen [place]) Transport wheelchair #1 ea 08/11/21 multivitamin 1 tab PO DAILY 90 days #90 tabs 09/13/21 Walker with seat and wheels #1 ea 09/28/21 lancets 28 gauge (FreeStyle #100 ea 12/28/21 Lancets) MOUTH GUARD #1 ea 06/08/22 adult diapers size small petite #90 ea 08/03/22 blood sugar diagnostic (FreeStyle #100 ea 11/28/22 Lite Strips) silver sulfadiazine 1 % topical 1 appl topical DAILY PRN wound 12/12/22 cream (Silvadene) healing 30 days #85 grams Adult pull ups #90 ea 12/13/22 stair lift #1 ea 12/16/22 disposable gloves (Disposable #1,000 ea 01/03/23 Latex-Free Gloves) amlodipine 5 mg tablet 5 mg PO DAILY #90 tabs 01/21/23 losartan 25 mg tablet 12.5 mg PO DAILY #90 tabs 01/21/23 peg [id number] 1 2 drp ophthalmic-Right Q4H #15 mL 01/21/23 %-0.2 %-0.2 % eye drops (Artificial Tears ([id number])) sertraline 100 mg tablet 200 mg (2 x 100 mg) PO DAILY 30 01/30/23 days #180 tabs atorvastatin 40 mg tablet 40 mg PO BEDTIME #90 tabs 02/03/23 ursodiol 250 mg tablet 250 mg PO TID #270 tabs 02/14/23 furosemide 20 mg tablet (Lasix) 20 mg PO DAILY #90 tabs 02/15/23 clopidogrel 75 mg tablet 75 mg PO DAILY #30 tabs 03/13/23 loratadine 10 mg tablet 10 mg PO BEDTIME #90 tabs 03/15/23 WIPES #1 ea 03/28/23 acarbose 50 mg tablet 50 mg PO TID #90 tabs 03/28/23 aspirin 81 mg tablet,delayed 81 mg PO DAILY #90 tabs 03/28/23 release sennosides 8.6 mg tablet (senna) 17.2 mg (2 x 8.6 mg) PO BEDTIME 03/31/23 #90 tabs simethicone 80 mg chewable tablet 80 mg PO TID #90 tabs 04/03/23 risperidone 1 mg tablet 1 mg PO BEDTIME #30 tabs 04/06/23 alcohol swabs (Alcohol Wipes) 1 pad topical DAILY #200 ea 04/07/23 Allergies Allergy/AdvReac Type Severity Reaction Status Date / Time Latex, Natural Rubber Allergy Intermediate Rash Verified 04/13/23 12:44 Sulfa (Sulfonamide AdvReac Intermediate Stomach Verified 04/13/23 12:44 Antibiotics) Upset [SULFA (SULFONAMIDE ANTIBIOTICS)] Morphine Sulfate AdvReac Intermediate Abdominal Uncoded 04/13/23 12:44 Pain Review of Systems Eyes: Eyes: Reports no additional eye complaints Cardiovascular: Cardiovascular: Reports no additional cardiovascular complaints Respiratory: Respiratory: Reports no additional respiratory complaints PMFSH Past Medical History Attestation statement: The following information was validated with the patient. Source: unable to obtain Medical History History of CVA (cerebrovascular accident) Dysphagia Hypertension Hypertensive urgency Cervical osteoarthritis Osteoarthritis of right glenohumeral joint Shoulder pain, right BOB positive CVA (cerebral vascular accident) HTN (hypertension) Primary biliary cholangitis Fatty liver disease, nonalcoholic History of umbilical hernia Postural hypotension Sjogrens syndrome GERD (gastroesophageal reflux disease) History of sleep apnea Asthma Subclinical hypothyroidism Hypertension Dyslipidemia Diabetic retinopathy associated with type 2 diabetes mellitus Diabetic polyneuropathy associated with type 2 diabetes mellitus Hypoglycemia after GI (gastrointestinal) surgery Diabetes type 2, uncontrolled Surgical History Hx of dilation and curettage Hx of tonsillectomy History of laparoscopic appendectomy History of carpal tunnel release Hx of colonoscopy History of esophagogastroduodenoscopy (EGD) History of partial hysterectomy Hx of section Hx of gastric bypass Family History Family History Father [place] (myocardial infarction) Diabetes mellitus Mother Diabetes mellitus CVA (cerebral vascular accident) Maternal Grandmother Stomach cancer Sister Hemorrhagic cerebrovascular accident (CVA) Social History Social History Household Members: Spouse Housing: House Are you a primary care consultant to a significant other at home: No Do you presently have visiting nurse or other home services: Yes (Pt requires 24 hour care, She has a VNA nurse but no MULTI OPERATION MACHINE OPERATOR yet in the house) Alcohol intake: never Patient Tobacco Use Status: Never used Tobacco e-Cigarette/Vaping Use: Never Used Second Hand Smoke Exposure: No Advance Directives: Yes Advance Directives on File: Yes Advance Directives Date on File: 03/07/23 service: No Current occupational status: disabled Cognitive needs: Yes (wheelchait) Hearing needs: No Vision needs: No Physical Exam Vital Signs: Vital Signs: Last Vital Signs Temp 98 F 04/13/23 12:44 Pulse 65 04/13/23 14:03 Resp 12 04/13/23 14:03 BP 143/66 H 04/13/23 14:03 Pulse Ox 98 04/13/23 14:03 O2 Del Method Room Air 04/13/23 14:03 BMI result Body Mass Index 22.8 Const: General: cooperative Nutritional Appearance: average body habitus Orientation/consciousness: patient oriented x3 HEENT: Head: Yes normal to inspection General nose exam: Normal external nose present Face and sinus: Yes normal facial exam Mouth: Normal oral and palatal mucosa present Throat: Yes posterior oropharynx normal Neck: Neck: Yes normal visual inspection and Yes full ROM Thyroid: Thyroid normal Resp: Effort & Inspection: normal respiratory effort Auscultation: clear to auscultation bilaterally Cardio: Jugular venous distension: no JVD Rate: regular rate Rhythm: regular rhythm GI: Inspection: Yes normal to inspection Palpation (GI): Soft to palpation Auscultation: normal bowel sounds : General: Yes no CVA tenderness Back/Spine/Pelvis: Back: no CVA tenderness Skin: General skin exam: no rashes or lesions noted and elasticity normal Lesions: no lesions Rashes: no rashes Neuro: Other: On examination patient has right-sided weakness 4/5 which is old, speech is clear, General: patient oriented x3 Course Reevaluation(s) Reevaluation #1: CASE WAS DISCUSSED WITH THE NEUROLOGY TEAM, CONSENSUS WAS TO OBTAIN AN MRI OF THE BRAIN, HEAD CT WAS NEGATIVE. AT THIS POINT WILL BE WAITING FOR THE RESULT OF THE MRI PATIENT WITH BE SIGNED OUT TO THE INCOMING ATTENDING . NO TPA WAS GIVEN BECAUSE MINIMAL SYMPTOMS RAPIDLY IMPROVED. Time: 15:50 Reevaluation #2: SIGNED OUT TO dR MADRID MRI PENDING Time: 16:16 Medical Decision Making Medical Decision Making [facility] Narrative: PATIENT PRESENTED WITH WEAKNESS AND DIZZINESS HISTORY OF MULTIPLE STROKE IN THE PAST THE LAST LACUNAR INFARCT IN WILL GET A CT. AT THIS POINT SHE IS DOING BETTER SHE IS ALMOST BACK TO THE BASELINE. Differential Diagnosis Differential Diagnoses: The differential diagnosis associated with the presentation includes TIA/CVA Admission/Observation Consideration of admission/observation: Escalation of care including admission/observation considered Consult Healthcare Provider Management of the patient was discussed with: Railroad Passenger Agent SPOKE WITH THE NEURO TEAM (SPOKE WITH ALEK LOWRY SKIN PILER) SHE WELL KNOWN TO THE NEUROLOGY SERVICE, RECOMMENDED MRI Lab Data [facility] Lab Attestation statement: I reviewed the patient's lab results. 04/13/23 13:07 04/13/23 13:07 Labs: Lab Results 04/13/23 04/13/23 04/13/23 Range/Units 12:42 13:07 13:09 WBC 5.7 (4.8-10.8) X10*3/uL RBC 4.93 (4.20-5.50) X10*6/uL Hgb 12.1 (12.0-16.0) g/dl Hct 39.0 (37.0-47.0) % MCV 79.1 L (80.0-98.0) fL MCH 24.5 L (27.0-33.0) pg MCHC 31.0 (31.0-35.0) g/dl RDW 16.1 H (11.0-16.0) % Plt Count 250 D (160-400) X10*3/uL MPV 12.0 (9.4-12.3) fL Immature Gran % (Auto) 0.7 H (0.0-0.4) % Neut % (Auto) 58.3 (45-73) % Lymph % (Auto) 31.0 (20-40) % [place] % (Auto) 6.5 (2-11) % Eos % (Auto) 3.0 (0-4) % Baso % (Auto) 0.5 (0-2) % Lymph # (Auto) 1.8 (1.2-4.9) X10*3/uL [place] # (Auto) 0.4 (0.1-1.2) X10*3/uL Eos # (Auto) 0.2 (0.0-0.4) X10*3/uL Baso # (Auto) 0.0 (0.0-0.2) X10*3/uL Abs Immat Gran (auto) 0.04 H (0.00-0.03) X10*3/uL Absolute Neuts (auto) 3.3 (2.0-8.3) x10*3/uL Absolute Nucleated RBC 0.000 (0.0-0.012) X10*3/uL Nucleated RBC % (auto) 0.0 (0.0-0.2) /100WBC Sodium 140 (135-145) mmol/L Potassium 3.7 D (3.3-5.1) mmol/L Chloride 100 (96-108) mmol/L Carbon Dioxide 25 (22-29) mmol/L Anion Gap 19 (12-20) BUN 22 H (9-16) mg/dL Creatinine 0.73 (0.5-1.4) mg/dL Estim Creat Clear Calc 55.8 Estimated GFR > 60 POC Glucose 123 H (60-115) mg/dL Random Glucose 130 H (60-115) mg/dL Calcium 9.8 D (8.4-10.2) mg/dL Total Bilirubin 0.2 (0.0-1.0) mg/dL AST 41 H (5-31) U/L ALT 35 H (0-31) U/L Alkaline Phosphatase 209 H (39-117) U/L Troponin I High Sens < 2.7 D (<3.5-17.0) ng/L Total Protein 8.0 (6.5-8.0) g/dL Albumin 3.9 (3.5-5.0) g/dL Independent Interpretation I performed an independent interpretation of an: EKG Interpretation: NORMAL SINUS RHYTHM RATE [address]-T CHANGES Independent Historian Clinical information obtained from an independent historian. History obtained from or confirmed by: EMS External Record Review External record reviewed: Inpatient record Discharge Plan Discharge Clinical Impression: Dizziness, Weakness Patient Disposition: Still a Patient Prescriptions: No Action (DME) Transport wheelchair See Rx Instructions .Route .MEDSUPPLY Qty: 1 0RF Rx Instructions: As directed multivitamin Tablet 1 tab PO DAILY 90 Days Qty: 90 3RF (DME) lancets [FreeStyle Lancets] 28 gauge [facility] See Rx Instructions .ROUTE .MEDSUPPLY Qty: 100 3RF Rx Instructions: As directed check the blood sugar once a day (DME) adult diapers size small petite See Rx Instructions .Route .MEDSUPPLY Qty: 90 12RF Rx Instructions: As directed (DME) FreeStyle Lite Strips Strip See Rx Instructions .ROUTE .MEDSUPPLY Qty: 100 11RF Rx Instructions: As directed 3 x/day (DME) Adult pull ups medium package See Rx Instructions .Route .MEDSUPPLY Qty: 90 11RF Rx Instructions: 8 Per day (PRN), 11 refills for 12 months. (DME) stair lift See Rx Instructions .Route .MEDSUPPLY Qty: 1 0RF Rx Instructions: As directed (DME) disposable gloves [Disposable Latex-Free Gloves] Misc See Rx Instructions .Route Qty: 1000 3RF Rx Instructions: As directed sertraline 100 mg tablet 200 mg PO DAILY 30 Days Qty: 180 1RF atorvastatin 40 mg tablet 40 mg PO BEDTIME Qty: 90 0RF ursodiol 250 mg tablet 250 mg PO TID Qty: 270 0RF clopidogrel 75 mg tablet 75 mg PO DAILY Qty: 30 0RF loratadine 10 mg tablet 10 mg PO BEDTIME Qty: 90 0RF sennosides [senna] 8.6 mg tablet 17.2 mg PO BEDTIME Qty: 90 0RF simethicone 80 mg tablet,chewable 80 mg PO TID Qty: 90 3RF risperidone 1 mg tablet 1 mg PO BEDTIME Qty: 30 1RF alcohol swabs [Alcohol Wipes] Pads, Medicated 1 pad topical DAILY Qty: 200 11RF metformin 500 mg tablet 500 mg PO BID amlodipine 5 mg Tablet 5 mg PO DAILY Qty: 90 0RF Protocol: Hold for SBP< HOLD for SBP < : 90 losartan 25 mg Tablet 12.5 mg PO DAILY Qty: 90 0RF Protocol: Hold for SBP< HOLD for SBP < : 90 Artificial Tears(oi-ckct-emfx) 1-0.2-0.2 % Drops 2 drp ophthalmic-Right Q4H Qty: 15 2RF polyethylene glycol 3350 [Purelax] 17 gram powder in packet 17 g PO DAILY PRN (Reason: constipation) cholecalciferol (vitamin D3) 50 mcg (2,000 unit) capsule 50 mcg PO DAILY (DME) pen needle, diabetic [Comfort EZ Pen [place]] 31 gauge x 3/16 needle See Rx Instructions .Route Qty: 100 3RF Rx Instructions: As directed (DME) MOUTH GUARD See Rx Instructions .Route .MEDSUPPLY Qty: 1 0RF Rx Instructions: As directed silver sulfadiazine [Silvadene] 1 % cream 1 appl topical DAILY PRN (Reason: wound healing) 30 Days Qty: 85 0RF Rx Instructions: apply a 1.5 mm thickness (DME) Walker with seat and wheels See Rx Instructions .Route .MEDSUPPLY Qty: 1 0RF Rx Instructions: As directed (DME) WIPES See Rx Instructions .Route .MEDSUPPLY Qty: 1 12RF Rx Instructions: As directed aspirin 81 mg tablet,delayed release (DR/EC) 81 mg PO DAILY Qty: 90 3RF acarbose 50 mg tablet 50 mg PO TID Qty: 90 4RF furosemide [Lasix] 20 mg tablet 20 mg PO DAILY Qty: 90 0RF albuterol sulfate 90 mcg/actuation HFA aerosol inhaler 1 inh inhalation QID PRN (Reason: Shortness Of Breath Or Wheezing)
--- NOTE | 2023-04-13 13:38 | MHC.STROKE ---
Addendum entered by Audra Andino RN 04/14/23 15:24: I REVIEWED HER CASE WITH DR BRADFORD. WE ARE REFERRING HER AN OUTPATIENT TO DR KEITH PIERSON NEURO-INTERVENTIONAL FOR POSSIBLE STENTING. SHE DOES NOT NEED TO BE TRANSFERRED. DR. BRADFORD CONFIRMED THAT. I HAVE PERSONALLY CONTACTED DR PARKER AND HIS DIRECTOR OF ADVERTISING SALES PROSPER TO LET BOTH OF HIM KNOW ABOUT THE REFERRAL. I SECURELY EMAILED AND FAXED OVER ALL THE REQUIRED REFERRAL INFORMATION. I ALSO CONTACTED THE RADIOLOGY DEPARTMENT AT [facility] AND THEY WILL SEND OVER THE MRI, CTA FROM OCTOBER AND CTA FROM JANUARY 2023. I MET WITH THE PATIENT AND HER FAMILY. I EXPLAINED THAT WE HAVE REFERRED HER TO DR. PARKER AT [facility] AND WHY. I LEFT DR. BRADFORD'S NUMBER FOR THE DAUGHTER. I REINFORCED STROKE EDUCATION. THE DAUGHTER MENTIONED THAT HER MOM ONLY GETS 7 HOURS OF HELP DAILY AND THEY ARE CONSIDERING SHORT TERM REHAB. I DID RELAY THIS INFORMATION TO CASE MANAGEMENT. I ALSO REVIEWED ALL OF THE ABOVE INFORMATION TO DR MCMANUS. Original Note: 1224 EMS PRE-NOTIFIED STROKE ALERT , ARRIVED 1229. EXAMINED AND DIRECT TO CT. PATIENT KNOWN TO THE STROKE SERVICE FOR PAST CVA'S. I MET WITH HER AND SHE SAID SHE'S BEEN FEELING WEAK SINCE YESTERDAY, EXCLUDED FROM TPA DUE TO OUT OF THE WINDOW, LKW YESTERDAY. ALSO RECENT STROKE WITHIN 3 MONTHS. SHE PASSED THE NURSING SWALLOW SCREEN, HER TONGUE IS THICK, BUT NO DIFFICULTY SWALLOWING. SHE IS ABLE TO SPEAK AND C/O MILD RIGHT SIDED WEAKNESS WHICH WAS HER BASELINE. I WILL FOLLOW NEEDED.
[2023-04-13 13:42] LABS: Alanine Aminotransferase 35 U/L (0-31); Albumin Level 3.9 g/dL (3.5-5.0); Alkaline Phosphatase 209 U/L (39-117); Anion Gap 19 (12-20); Aspartate Amino Transferase 41 U/L (5-31); Bilirubin Total 0.2 mg/dL (0.0-1.0); Blood Urea Nitrogen 22 mg/dL (9-16); Calcium 9.8 mg/dL (8.4-10.2); Carbon Dioxide 25 mmol/L (22-29); Chloride 100 mmol/L (96-108); Creatinine Clr Calc Pharmacy 55.8; Estimated Glomerular Filt Rate > 60; Glucose Random 130 mg/dL (60-115); Potassium 3.7 mmol/L (3.3-5.1); Sodium 140 mmol/L (135-145)
[2023-04-13 13:49] LABS: Troponin-I High Sensitivity < 2.7 ng/L (<3.5-17.0)
[2023-04-13 14:03] VITALS: BP 143/66; PULSE 65; RESP 12; O2SAT 98
[2023-04-13 16:24] VITALS: BP 163/66; PULSE 64; RESP 20; O2SAT 97
--- NOTE | 2023-04-13 20:03 | PC.NURSE ---
This RN assumed care at 1500. Patient sent to MRI at this time
[2023-04-13 21:57] VITALS: BP 151/69; PULSE 63; RESP 15; TEMP 37; O2SAT 95
--- NOTE | 2023-04-13 22:02 | PM.IMHP ---
History of Present Illness Date of Service: 04/13/23 Chief Complaint: Right sided weakness and dizziness 62-year-old female with history of bsg-siufmki-iavysfjvp type 2 diabetes, mild intermittent asthma, diabetic polyneuropathy, diabetic poly retinopathy, dyslipidemia, GERD, history of recurrent CVA with sequela of left-sided hemiparesis and right sided facial droop, and hypertension, last hospitalized in February 2023 with acute CVA and comes in again today with Headache, dizziness, right sided weakness since the prior day. CT head no acute stroke, MRI show Acute infarct in the medial right thalamus. Out of window for tPA Review of Systems Review of Systems: dizziness, right sided weakness [facility] Medical History History of CVA (cerebrovascular accident) Dysphagia Hypertension Hypertensive urgency Cervical osteoarthritis Osteoarthritis of right glenohumeral joint Shoulder pain, right BBO positive CVA (cerebral vascular accident) HTN (hypertension) Primary biliary cholangitis Fatty liver disease, nonalcoholic History of umbilical hernia Postural hypotension Sjogrens syndrome GERD (gastroesophageal reflux disease) History of sleep apnea Asthma Subclinical hypothyroidism Hypertension Dyslipidemia Diabetic retinopathy associated with type 2 diabetes mellitus Diabetic polyneuropathy associated with type 2 diabetes mellitus Hypoglycemia after GI (gastrointestinal) surgery Diabetes type 2, uncontrolled Family History Father [place] (myocardial infarction) Diabetes mellitus Mother Diabetes mellitus CVA (cerebral vascular accident) Maternal Grandmother Stomach cancer Sister Hemorrhagic cerebrovascular accident (CVA) Surgical History Hx of dilation and curettage Hx of tonsillectomy History of laparoscopic appendectomy History of carpal tunnel release Hx of colonoscopy History of esophagogastroduodenoscopy (EGD) History of partial hysterectomy Hx of section Hx of gastric bypass Social History Household Members: Spouse Housing: House Are you a primary child care provider to a significant other at home: No Do you presently have visiting nurse or other home services: Yes (Pt requires 24 hour care, She has a VNA nurse but no WOMEN'S MINISTRY DIRECTOR yet in the house) Alcohol intake: never Patient Tobacco Use Status: Never used Tobacco Smoked in Last 30 Days: No e-Cigarette/Vaping Use: Never Used Second Hand Smoke Exposure: No Use of substances other than those prescribed or required for medical reasons: No Currently Displaying Signs/Symptoms of Drug Intoxication Withdrawal: No Have you been hit, kicked, punched, or otherwise hurt by someone within the past year? If so, by whom?: No Do you feel safe in your current relationship?: Yes Is there a partner from a previous relationship who is making you feel unsafe now?: No Are you made to feel afraid or neglected: No Advance Directives: Yes Advance Directives on File: Yes Advance Directives Date on File: 03/07/23 Do you have thoughts of harming others: None Do you have a plan to hurt others: No Plan Recently lost weight without trying: No How much weight loss: Not applicable Patient : No service: No Current occupational status: disabled Cognitive needs: Yes (wheelAmicus Therapeuticsit) Hearing needs: No Vision needs: No Meds Allergies Allergy/AdvReac Type Severity Reaction Status Date / Time Latex, Natural Rubber Allergy Intermediate Rash Verified 04/13/23 12:44 Sulfa (Sulfonamide AdvReac Intermediate Stomach Verified 04/13/23 12:44 Antibiotics) Upset [SULFA (SULFONAMIDE ANTIBIOTICS)] Morphine Sulfate AdvReac Intermediate Abdominal Uncoded 04/13/23 12:44 Pain Home Medications Medication Instructions Recorded Confirmed Last Taken Type albuterol sulfate 90 mcg/actuation 1 inh inhalation QID PRN Shortness 04/28/20 04/13/23 03/06/23 History aerosol inhaler Of Breath Or Wheezing polyethylene glycol 3350 17 gram 17 g PO DAILY PRN constipation 10/25/22 04/13/23 10/25/22 History oral powder packet (Purelax) metformin 500 mg tablet 500 mg PO BID 01/19/23 04/13/23 03/06/23 History cholecalciferol (vitamin D3) 50 50 mcg PO DAILY 03/06/23 04/13/23 03/06/23 History mcg (2,000 unit) capsule Physical Exam Vital Signs and Narrative: Vital Signs: Last Vital Signs Temp 98.6 F 04/13/23 21:57 Pulse 63 04/13/23 21:57 Resp 15 04/13/23 21:57 BP 151/69 H 04/13/23 21:57 Pulse Ox 95 04/13/23 21:57 O2 Del Method Room Air 04/13/23 21:57 BMI result Body Mass Index 22.8 Const: Other: Constitutional - Awake and Alert, No apparent distress Eyes - PERRLA, EOMI Cardiovascular - S1S2, RRR, No edema Respiratory - Normal lung expansion, Normal respiratory effort, No respiratory distress, CTA bilaterally Gastrointestinal - NT / ND; +BS; No rebound or guarding Extremities - no calf tenderness bilaterally, no swelling Skin - Warm/Dry Neurological - Alert & oriented x3, right sided facial droop with clear speeh, otherwise CN II-XII in tact,4/5 weakness on right side. Normal finger to nose testing. Downgoing babinski, 1+ R patellar reflex, absent left patellar reflex Psychological - Appropriate affect Results Labs 04/13/23 13:07 04/13/23 13:07 Labs: Laboratory Results - last 24 hr 04/13/23 04/13/23 12:42 13:07 MCV 79.1 L MCH 24.5 L MCHC 31.0 RDW 16.1 H Plt Count 250 D MPV 12.0 Immature Gran % (Auto) 0.7 H Neut % (Auto) 58.3 Lymph % (Auto) 31.0 Chambers % (Auto) 6.5 Eos % (Auto) 3.0 Baso % (Auto) 0.5 Lymph # (Auto) 1.8 Chambers # (Auto) 0.4 Eos # (Auto) 0.2 Baso # (Auto) 0.0 Abs Immat Gran (auto) 0.04 H Absolute Neuts (auto) 3.3 Absolute Nucleated RBC 0.000 Nucleated RBC % (auto) 0.0 Anion Gap 19 Estim Creat Clear Calc 55.8 Estimated GFR > 60 POC Glucose 123 H Random Glucose 130 H Calcium 9.8 D Total Bilirubin 0.2 AST 41 H ALT 35 H Alkaline Phosphatase 209 H Total Protein 8.0 Albumin 3.9 Imaging Radiologist's Impressions: Impressions Head CT 04/13/23 12:42 IMPRESSION: No CT evidence of acute intracranial abnormality. Evolution of now chronic infarct in the left frontal lobe/schulz radiata with redemonstrated additional chronic lacunar infarcts within the left centrum semiovale, right greater than left thalami, and liana on a background of presumed mild chronic microangiopathic changes. This critical result was communicated to Monico Oquendo MD at 1:10pm on 04/13/2023 and it was ascertained that the content and urgency of the report was understood at the time of direct communication. Brain MRI 04/13/23 20:43 IMPRESSION: Acute infarct in the medial right thalamus. Assessment and Plan (1) Acute stroke due to ischemia: Status: Acute Plan 62-year-old female with history of phg-bdbdqpf-zqbaptwma type 2 diabetes, mild intermittent asthma, diabetic polyneuropathy, diabetic poly retinopathy, dyslipidemia, GERD, history of recurrent CVA with sequela of left-sided hemiparesis and right sided facial droop, and hypertension last CVA in February 2023 and here with yet another CVA #Acute CVA as demonstrated on MRI. She has had all stroke work up in the past. Continue ASA, PLavix, statin, BP cotrol. PT/OT. Neurology for any other treatement # hypertension--avoid lowering BP dramatically, can probably resume meds tomorrow # cht-mivleum-cmyvdzhmx type 2 diabetes -continue Metformin, SSI, diabetic diet. # mild intermittent asthma -no acute exacerbation -albuterol p.r.n. # HLD -continue statin DVT prophylaxis-Lovenox Full code Patient requires inpatient stay at least 2 midnights for management of acute CVA with persisting deficits requiring PT/OT/LABORATORY ANIMAL CARE VETERINARIAN, and Neurology eval Time Spent With Patient Time: Total time managing care of this patient today ____ minutes. Quality Stroke Does the patient have a stroke diagnosis?: Yes Reason for No Anti-thrombotic by Day Two: N/A - Med Ordered VTE Prior VTE?: No VTE Risk Level:: Medical - moderate - high VTE Device Contraindication: Treatment Not Indicated VTE Drug Contraindication: N/A - Med Ordered
--- NOTE | 2023-04-13 22:14 | PHA.MEDREC ---
Pharmacy Consult ? Medication Reconciliation Pharmacy has completed the medication reconciliation. Patient's daughter Wilma confirmed medicaitons. Emmy Phillip, DhruvD
[2023-04-13 23:28] VITALS: BP 161/59; PULSE 67; RESP 16; O2SAT 96
[2023-04-14] VITALS (7 sets, daily range): BP systolic 135–196; BP diastolic 56–81; PULSE 59–67; RESP 13–19; TEMP 36.2–37.1; O2SAT 94–98; BMI 25.5
--- NOTE | 2023-04-14 03:38 | PC.NURSE ---
Patient returned from MRI at 2046
--- NOTE | 2023-04-14 03:39 | PC.NURSE ---
Addendum entered by Lolis Saldivar RN 04/14/23 03:43: Neuro checks remain unchanged throughout this RN's shift. Patient is AOx3. Original Note: End of shift: This RN gave report to Blake Mckeon RN. Patient vital signs stable, patient currently awaiting bed assignment
--- NOTE | 2023-04-14 03:42 | PC.NURSE ---
Assumed care of pt. Pt lying on stretcher, rousable to voice. Pt AxO x2, sts does not know of past CVA's. Notable R facial droop, LLE weakness. BUE equal strength.
--- NOTE | 2023-04-14 07:51 | PC.NURSE ---
physical therapy meeting with patient at this time.
--- NOTE | 2023-04-14 12:11 | PM.NEUROCN ---
History of Present Illness Data of Consult Service Date: 04/14/23 Primary Care Provider: Ludy Alonso MD [facility] Reason for consult: stroke This is a 62-year-old female with history of type 2 diabetes, asthma, diabetic polyneuropathy, diabetic retinopathy, dyslipidemia, GERD, history of recurrent CVA with sequela of left-sided hemiparesis and right sided facial droop, and hypertension presents to the ED earlier today due to dizziness and increased weakness on the right side and right facial droop, with MRI showing a small left medial thalamic acute infarct. This is the 4th epiosde in 2022 of small acute stroke involving both hemispheres. She has clean carotids in theneck but dobbs sbilateral high grade stenosis of cavernous carotids on CTA in January 2023. increasing facial droop.? Patient also reports intractable vertigo and slurred speech.? She is not a candidate for tPA. On Plavix in addition to aspirin.? Review of Systems Review of Systems: dizziness, right sided weakness Eyes: Eyes: Reports no additional eye complaints Cardiovascular: Cardiovascular: Reports no additional cardiovascular complaints Respiratory: Respiratory: Reports no additional respiratory complaints [facility] Past Medical History Medical History History of CVA (cerebrovascular accident) Dysphagia Hypertension Hypertensive urgency Cervical osteoarthritis Osteoarthritis of right glenohumeral joint Shoulder pain, right BOB positive CVA (cerebral vascular accident) HTN (hypertension) Primary biliary cholangitis Fatty liver disease, nonalcoholic History of umbilical hernia Postural hypotension Sjogrens syndrome GERD (gastroesophageal reflux disease) History of sleep apnea Asthma Subclinical hypothyroidism Hypertension Dyslipidemia Diabetic retinopathy associated with type 2 diabetes mellitus Diabetic polyneuropathy associated with type 2 diabetes mellitus Hypoglycemia after GI (gastrointestinal) surgery Diabetes type 2, uncontrolled Family History Family History Father LA (myocardial infarction) Diabetes mellitus Mother Diabetes mellitus CVA (cerebral vascular accident) Maternal Grandmother Stomach cancer Sister Hemorrhagic cerebrovascular accident (CVA) Surgical History Surgical History Hx of dilation and curettage Hx of tonsillectomy History of laparoscopic appendectomy History of carpal tunnel release Hx of colonoscopy History of esophagogastroduodenoscopy (EGD) History of partial hysterectomy Hx of section Hx of gastric bypass Social History Social History Household Members: Spouse Housing: House Are you a primary youth career specialist to a significant other at home: No Do you presently have visiting nurse or other home services: Yes (Pt requires 24 hour care, She has a VNA nurse but no FIXTURE DESIGNER yet in the house) Alcohol intake: never Patient Tobacco Use Status: Never used Tobacco Smoked in Last 30 Days: No e-Cigarette/Vaping Use: Never Used Second Hand Smoke Exposure: No Use of substances other than those prescribed or required for medical reasons: No Have you been hit, kicked, punched, or otherwise hurt by someone within the past year? If so, by whom?: No Do you feel safe in your current relationship?: Yes Is there a partner from a previous relationship who is making you feel unsafe now?: No Are you made to feel afraid or neglected: No Advance Directives: Yes Advance Directives on File: Yes Advance Directives Date on File: 03/07/23 Do you have thoughts of harming others: None Do you have a plan to hurt others: No Plan Recently lost weight without trying: No How much weight loss: Not applicable Patient : No service: No Current occupational status: disabled Cognitive needs: Yes (wheelchait) Hearing needs: No Vision needs: No Meds Allergies Allergy/AdvReac Type Severity Reaction Status Date / Time Latex, Natural Rubber Allergy Intermediate Rash Verified 04/13/23 12:44 Sulfa (Sulfonamide AdvReac Intermediate Stomach Verified 04/13/23 12:44 Antibiotics) Upset [SULFA (SULFONAMIDE ANTIBIOTICS)] Morphine Sulfate AdvReac Intermediate Abdominal Uncoded 04/13/23 12:44 Pain Active Medications: Current Medications Acetaminophen (Acetaminophen 325 Mg Tablet) 650 mg PO Q6H PRN PRN Reason: Pain, Mild (Pain Scale 1-3) Albuterol Sulfate (Albuterol Sulfate 90 Mcg 8 Gm Inhaler) 1 puff INHALE QID PRN PRN Reason: Shortness Of Breath Or Wheezing Amlodipine Besylate (Amlodipine Besylate 5 Mg Tablet) 5 mg PO DAILY [facility]; Protocol Last Admin: 04/14/23 11:36 Dose: 5 mg Artificial Tears (Artificial Tears 15 Ml Drops) 2 drop EYE-RIGHT Q4H PRN PRN Reason: Dry Eyes Aspirin (Aspirin Enteric Coated 81 Mg Tablet.Dr) 81 mg PO DAILY [facility] Last Admin: 04/14/23 11:35 Dose: 81 mg Atorvastatin Calcium (Atorvastatin Calcium 40 Mg Tablet) 40 mg PO BEDTIME [facility] Clopidogrel Bisulfate (Clopidogrel Bisulfate 75 Mg Tablet) 75 mg PO DAILY [facility] Last Admin: 04/14/23 11:35 Dose: 75 mg Enoxaparin Sodium (Enoxaparin Sodium 40 Mg/0.4 Ml Syringe) 40 mg SUBCUT Q24H [facility] Last Admin: 04/13/23 23:56 Dose: 40 mg Furosemide (Furosemide 20 Mg Tablet) 20 mg PO DAILY [facility]; Protocol Last Admin: 04/14/23 11:35 Dose: 20 mg Sodium Chloride (Ns) 1,000 mls @ 100 mls/hr IVCONT .Q10H [facility] Last Infusion: 04/14/23 11:38 Dose: Infused Loratadine (Loratadine 10 Mg Tablet) 10 mg PO BEDTIME [facility] Losartan Potassium (Losartan Potassium 25 Mg Tablet) 12.5 mg PO DAILY [facility]; Protocol Last Admin: 04/14/23 11:37 Dose: 12.5 mg Magnesium Hydroxide (Milk Of Magnesia 30 Ml Oral.Susp) 30 ml PO DAILY PRN PRN Reason: Constipation Melatonin (Melatonin 3 Mg Tablet) 6 mg PO BEDTIME PRN PRN Reason: Insomnia Metformin HCl (Metformin Hcl 500 Mg Tablet) 500 mg PO BID [facility] Last Admin: 04/14/23 11:37 Dose: 500 mg Multivitamins/Vitamin C (Multivitamin Tablet) 1 tab PO DAILY [facility] Last Admin: 04/14/23 11:36 Dose: 1 tab Ondansetron HCl (Ondansetron Hcl 4 Mg/2 Ml Vial) 4 mg IVPUSH Q8H PRN PRN Reason: Nausea and Vomiting Polyethylene Glycol (Polyethylene Glycol 3350 17 Gm Powd.Pack) 17 gm PO DAILY PRN PRN Reason: constipation Risperidone (Risperidone 1 Mg Tablet) 1 mg PO BEDTIME [facility] Senna (Sennosides 8.6 Mg Tablet) 17.2 mg PO BEDTIME [facility] Sertraline HCl (Sertraline Hcl 100 Mg Tablet) 200 mg PO DAILY [facility] Last Admin: 04/14/23 11:36 Dose: 200 mg Simethicone (Simethicone 80 Mg Tab.Chew) 80 mg PO TID [facility] Last Admin: 04/14/23 11:37 Dose: 80 mg Ursodiol (Ursodiol 300 Mg Capsule) 300 mg PO TID [facility] Last Admin: 04/14/23 11:35 Dose: 300 mg Vitamin D (Cholecalciferol (Vitamin D3) 25 Mcg Tablet) 50 mcg PO DAILY [facility] Last Admin: 04/14/23 11:36 Dose: 50 mcg Home Medications Medication Instructions Recorded Confirmed Last Taken Type albuterol sulfate 90 mcg/actuation 1 inh inhalation QID PRN Shortness 04/28/20 04/13/23 03/06/23 History aerosol inhaler Of Breath Or Wheezing polyethylene glycol 3350 17 gram 17 g PO DAILY PRN constipation 10/25/22 04/13/23 10/25/22 History oral powder packet (Purelax) metformin 500 mg tablet 500 mg PO BID 01/19/23 04/13/23 03/06/23 History cholecalciferol (vitamin D3) 50 50 mcg PO DAILY 03/06/23 04/13/23 03/06/23 History mcg (2,000 unit) capsule Physical Exam Vital Signs: Vital Signs: Last Vital Signs Temp 97.9 F 04/14/23 11:35 Pulse 60 04/14/23 11:35 Resp 18 04/14/23 11:35 BP 181/81 H 04/14/23 11:35 Pulse Ox 98 04/14/23 11:35 O2 Del Method Room Air 04/14/23 11:35 BMI result Body Mass Index 25.5 Const: Other: Constitutional - Awake and Alert, No apparent distress Eyes - PERRLA, EOMI Cardiovascular - S1S2, RRR, No edema Respiratory - Normal lung expansion, Normal respiratory effort, No respiratory distress, CTA bilaterally Gastrointestinal - NT / ND; +BS; No rebound or guarding Extremities - no calf tenderness bilaterally, no swelling Skin - Warm/Dry Neurological - Alert & oriented x3, right sided facial droop with clear speeh, otherwise CN II-XII in tact,4/5 weakness on right side. Normal finger to nose testing. Downgoing babinski, 1+ R patellar reflex, absent left patellar reflex Psychological - Appropriate affect General: cooperative Nutritional Appearance: average body habitus Orientation/consciousness: patient oriented x3 HEENT: Head: Yes normal to inspection General nose exam: Normal external nose present Face and sinus: Yes normal facial exam Mouth: Normal oral and palatal mucosa present Throat: Yes posterior oropharynx normal Neck: Neck: Yes normal visual inspection and Yes full ROM Thyroid: Thyroid normal Resp: Effort & Inspection: normal respiratory effort Auscultation: clear to auscultation bilaterally Cardio: Jugular venous distension: no JVD Rate: regular rate Rhythm: regular rhythm GI: Inspection: Yes normal to inspection Palpation (GI): Soft to palpation Auscultation: normal bowel sounds : General: Yes no CVA tenderness Back/Spine/Pelvis: Back: no CVA tenderness Skin: General skin exam: no rashes or lesions noted and elasticity normal Lesions: no lesions Rashes: no rashes Neuro: Other: On examination patient has right-sided weakness 4/5 which is old, speech is soft andslurred. Right facial droop. No filed cut. Left side strength is good. Plantar extensor on right General: patient oriented x3 Results Labs 04/13/23 13:07 04/13/23 13:07 Labs: Short CBC 04/13/23 Range/Units 13:07 WBC 5.7 (4.8-10.8) X10*3/uL Hgb 12.1 (12.0-16.0) g/dl Hct 39.0 (37.0-47.0) % Plt Count 250 D (160-400) X10*3/uL BMP 04/13/23 13:07 Sodium 140 Potassium 3.7 D Chloride 100 Carbon Dioxide 25 BUN 22 H Creatinine 0.73 Calcium 9.8 D Liver Function 04/13/23 Range/Units 13:07 Total Bilirubin 0.2 (0.0-1.0) mg/dL AST 41 H (5-31) U/L ALT 35 H (0-31) U/L Alkaline Phosphatase 209 H (39-117) U/L Albumin 3.9 (3.5-5.0) g/dL Assessment and Plan (1) Acute stroke due to ischemia: Status: Acute Acute left thalamic stroke. 4th stroke in 2022 with severe bilateral cavernous carotid stenosis. Recom. Incraese Atorvastatin to 80mg. Continue ASA and Plavix. Send angio films to Dr. Johnson at [facility] to see if there is any possibility of stenting the cavernous carotids - Audra informed about this. 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 She has had all stroke work up in the past. Continue ASA, PLavix, statin, BP cotrol. PT/OT. Neurology for any other treatement # hypertension--avoid lowering BP dramatically, can probably resume meds tomorrow # [id number] type 2 diabetes -continue Metformin, SSI, diabetic diet. # mild intermittent asthma -no acute exacerbation -albuterol p.r.n. # HLD -continue statin DVT prophylaxis-Lovenox Full code Patient requires inpatient stay at least 2 midnights for management of acute CVA with persisting deficits requiring PT/OT/SOCIAL CONTACT WORKER, and Neurology eval Time Spent With Patient Time: Total time managing care of this patient today ____ minutes. Procedures Date of Service Date of Service: 04/14/23
--- NOTE | 2023-04-14 16:43 | HO.PM.IMPN ---
Subjective Subjective Date of Service: 04/14/23 Interval History: Acute left thalamic stroke. Review of Systems says dizziness improving no fevers Physical Exam Vital Signs: Vital Signs: Last Vital Signs Temp 97.1 F 04/14/23 16:00 Pulse 66 04/14/23 16:00 Resp 16 04/14/23 16:00 BP 196/74 H 04/14/23 16:00 Pulse Ox 96 04/14/23 16:00 O2 Del Method Room Air 04/14/23 16:00 BMI result Body Mass Index 25.5 Appearance: awake, Alert.No apparent distress cvs: rrr, [id number] , no murmur res: clear to auscultation ,no rhonchii or wheezing abd: no rebound or guarding ,nt, bs present. ext pulses present , no cyanosis . neuro: axo3 , nonfocal. Objective Data Active Medications Acetaminophen (Acetaminophen 325 Mg Tablet) 650 mg PO Q6H PRN PRN Reason: Pain, Mild (Pain Scale 1-3) Acetaminophen (Acetaminophen 325 Mg Tablet) 650 mg PO ONCE ONE Stop: 04/14/23 16:43 Albuterol Sulfate (Albuterol Sulfate 90 Mcg 8 Gm Inhaler) 1 puff INHALE QID PRN PRN Reason: Shortness Of Breath Or Wheezing Amlodipine Besylate (Amlodipine Besylate 5 Mg Tablet) 5 mg PO DAILY [facility]PLAC[facility] BY [facility]; Protocol Last Admin: 04/14/23 11:36 Dose: 5 mg Documented By: SHEREE Amlodipine Besylate (Amlodipine Besylate 2.5 Mg Tablet) 2.5 mg PO ONCE ONE; Protocol Stop: 04/14/23 16:43 Artificial Tears (Artificial Tears 15 Ml Drops) 2 drop EYE-RIGHT Q4H PRN PRN Reason: Dry Eyes Aspirin (Aspirin Enteric Coated 81 Mg Tablet.) 81 mg PO DAILY [facility] Last Admin: 04/14/23 11:35 Dose: 81 mg Documented By: SHEREE Atorvastatin Calcium (Atorvastatin Calcium 80 Mg Tablet) 80 mg PO BEDTIME REPLACED BY [facility] Clopidogrel Bisulfate (Clopidogrel Bisulfate 75 Mg Tablet) 75 mg PO DAILY [facility] Last Admin: 04/14/23 11:35 Dose: 75 mg Documented By: SHEREE Enoxaparin Sodium (Enoxaparin Sodium 40 Mg/0.4 Ml Syringe) 40 mg SUBCUT Q24H REPLACED BY [facility] Last Admin: 04/13/23 23:56 Dose: 40 mg Documented By: JUAN PABLO Furosemide (Furosemide 20 Mg Tablet) 20 mg PO DAILY [facility]; Protocol Last Admin: 04/14/23 11:35 Dose: 20 mg Documented By: SHEREE Sodium Chloride (Ns) 1,000 mls @ 100 mls/hr IVCONT .Q10H [facility] Last Admin: 04/14/23 12:53 Dose: 100 mls/hr Documented By: SHEREE Loratadine (Loratadine 10 Mg Tablet) 10 mg PO BEDTIME [facility] Losartan Potassium (Losartan Potassium 25 Mg Tablet) 12.5 mg PO DAILY [facility]; Protocol Last Admin: 04/14/23 11:37 Dose: 12.5 mg Documented By: SHEREE Magnesium Hydroxide (Milk Of Magnesia 30 Ml Oral.Susp) 30 ml PO DAILY PRN PRN Reason: Constipation Melatonin (Melatonin 3 Mg Tablet) 6 mg PO BEDTIME PRN PRN Reason: Insomnia Metformin HCl (Metformin Hcl 500 Mg Tablet) 500 mg PO BID [facility]PLAC[facility] Last Admin: 04/14/23 11:37 Dose: 500 mg Documented By: SHEREE Multivitamins/Vitamin C (Multivitamin Tablet) 1 tab PO DAILY [facility]PL[facility] Last Admin: 04/14/23 11:36 Dose: 1 tab Documented By: SHEREE Ondansetron HCl (Ondansetron Hcl 4 Mg/2 Ml Vial) 4 mg IVPUSH Q8H PRN PRN Reason: Nausea and Vomiting Polyethylene Glycol (Polyethylene Glycol 3350 17 Gm Powd.Pack) 17 gm PO DAILY PRN PRN Reason: constipation Risperidone (Risperidone 1 Mg Tablet) 1 mg PO BEDTIME REPLACED BY [facility] Senna (Sennosides 8.6 Mg Tablet) 17.2 mg PO BEDTIME [facility] Sertraline HCl (Sertraline Hcl 100 Mg Tablet) 200 mg PO DAILY REPLACED BY [facility] Last Admin: 04/14/23 11:36 Dose: 200 mg Documented By: SHEREE Simethicone (Simethicone 80 Mg Tab.Chew) 80 mg PO TID REPLACED BY [facility] Last Admin: 04/14/23 14:18 Dose: 80 mg Documented By: SHEREE Ursodiol (Ursodiol 300 Mg Capsule) 300 mg PO TID REPLACED BY [facility] Last Admin: 04/14/23 14:18 Dose: 300 mg Documented By: SHEREE Vitamin D (Cholecalciferol (Vitamin D3) 25 Mcg Tablet) 50 mcg PO DAILY [facility] Last Admin: 04/14/23 11:36 Dose: 50 mcg Documented By: SHEREE Labs 04/13/23 13:07 04/13/23 13:07 Labs: Laboratory Results - last 24 hr 04/13/23 04/14/23 04/14/23 23:31 00:54 04:03 POC Glucose 64 187 H 97 Triglycerides Cholesterol LDL Cholesterol, Calc HDL Cholesterol 04/14/23 05:19 POC Glucose Triglycerides 107 Cholesterol 115 LDL Cholesterol, Calc 49 HDL Cholesterol 45 Assessment and Plan (1) Dizziness: Status: Acute (2) Acute stroke due to ischemia: Status: Acute Plan 62-year-old female with history of [id number] type 2 diabetes, mild intermittent asthma, diabetic polyneuropathy, diabetic poly retinopathy, dyslipidemia, GERD, 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 She has had all stroke work up in the past. Continue ASA, PLavix, statin, BP cotrol. PT/OT. Neurology -patient will follow up with dr serra outpatient ,adjusted atorvastatin. uncontrolled hypertension--avoid lowering BP dramatically, continue home meds-amlodipine ,losartaan if need will add small dose 2.5 mg amlodipine. [id number] type 2 diabetes -continue Metformin, SSI, diabetic diet. mild intermittent asthma -no acute exacerbation -albuterol p.r.n. HLD -continue statin DVT prophylaxis-Lovenox Full code ongoing inpatient need:management of acute CVA with persisting deficits requiring PT/OT/PROCESS CONSULTANT,uncontrolled htn. Time Spent With Patient Time: Total time managing care of this patient today ____ minutes. Quality Stroke Does the patient have a stroke diagnosis?: Yes Reason for No Anti-thrombotic by Day Two: Drug treatment not indicated VTE Prior VTE?: No VTE Risk Level:: Medical - moderate - high VTE Device Contraindication: Treatment Not Indicated VTE Drug Contraindication: N/A - Med Ordered
--- NOTE | 2023-04-14 17:11 | MHC.SL.SWA ---
Speech Pathologist Impression: Oropharyngeal Dysphagia, Risk of Aspiration Risk of Aspiration Due to: Neurological Condition Weak Voice Dysphasia Diet Status: Liquid Consistency and Strategies for Safe Swallow: Liquid Intake Recommendation: [place] Thick Liquid Intake Strategies: Small Sips No Straws Solid Food Consistency: Dietary Recommendations: Chopped/Advanced (NDD3) Additional Modifications to Solid Foods: Avoid mixed consistencies, add sauces and gravies and mix well. Oral Medication Intake: Crushed with Puree (when possible) Please contact the pharmacy regarding appropriate crushable or liquid drug formulations that are available whenever modified delivery is recommended. Compensatory Strategies and Precautions to be Taken for Safe Swallow: Sitting Upright (90 deg) No Straw Small Bites and Sips Alternate Liquids/Solids Supervision While Eating and Drinking for Safe Swallow: Total Assistance (1:1) Foods to Avoid: Mixed consistencies, tough, difficulty to chew solids. Recommendation for Speech: Further Testing Needed Outpatient Speech Therapy Inpatient Speech Therapy Speech Therapy through [facility] ?Modified Barium Swallow Study - Outpatient Patient seen for swallow and language/speech/cognition. Patient presents w/ mild-moderate oropharyngeal dysphagia marked by weakness/disorganized movement in tongue/lips and overt s/s aspiration on thin liquids. Recommend CHOPPED/ADVANCED solids (NDD3), NECTAR THICK liquids (NO STRAWS), pills CRUSHED in puree (when possible, otherwise whole in puree). Patient presents w/ low vocal quality with word finding difficulty. Receptive language seemingly intact. Responds to orientation questions and conversation appropriately. Recommend referral to ENT d/t change in vocal quality. NEUROSURGICAL PHYSICIAN ASSISTANT will continue to follow. At this time, would recommend continued intervention/evaluation for dysphagia and speech/language after d/c. Sound Art Instructor Clinican/Clinical Fellow: No Supervisory Statement: I have reviewed and agree with the student/clinical fellow's documentation: No Speech Language Pathologist: Falguni Ly M.A., [facility]-NEUROSURGICAL PHYSICIAN ASSISTANT
[2023-04-15] VITALS: BP 109/50; PULSE 57; RESP 18; TEMP 36.3; O2SAT 95
[2023-04-15 04:00] VITALS: BP 113/57; PULSE 57; RESP 18; TEMP 36.2; O2SAT 94
[2023-04-15 08:00] VITALS: BP 143/63; PULSE 61; RESP 20; TEMP 36.3; O2SAT 94
--- NOTE | 2023-04-15 08:01 | MHC.CM.PN ---
PT is recommending STR VS Home if Patient has adequate family support and OT is recommending STR. Patient lives with her ,uses a walker, has a PCP and [facility].HCP is on file and PCP is Dr.Lorenver ZHANG. CM has initiated and will follow for dc planning.
--- NOTE | 2023-04-15 08:57 | MHC.CM.PN ---
Patient may be active with [facility](rather than [facility]); CM awaits confirmation.
[2023-04-15 10:57] VITALS: BP 153/73; PULSE 63; RESP 20; TEMP 36.8; O2SAT 98
--- NOTE | 2023-04-15 11:38 | PM.DS ---
DS: Providers Provider Date of Service: 04/15/23 Date of admission: 04/13/23 22:43 Date of discharge: 04/15/23 Primary care physician: Ludy Alonso MD Consults: 04/13/23 22:46 Consult to Neurology Routine Consulting Provider: Consuelo Delgado Reason for consultation: acute stroke Has provider been notified: No Attending physician on discharge: Thierry Fitzpatrick Discharging clinician: Thierry Fitzpatrick DS: Diagnosis Discharge Diagnosis (1) Acute stroke due to ischemia: Status: Acute DS: Summary Hospital Course Hospital Course: 62-year-old female with history of aej-kwjdmbg-ebtyiltiy type 2 diabetes, mild intermittent asthma, diabetic polyneuropathy, diabetic poly retinopathy, dyslipidemia, GERD, history of recurrent CVA with sequela of left-sided hemiparesis and right sided facial droop, and hypertension, last hospitalized in February 2023 with acute CVA and comes in again today with Headache, dizziness, right sided weakness since the prior day. CT head no acute stroke, MRI show Acute infarct in the medial right thalamus. Out of window for tPA. Hospital course: Patient was admitted for acute CVA demonstrated on MRI: Patient was seen by Neurology: Recommended to continue aspirin, Plavix, adjusted atorvastatin to 80 mg. Neurology sent information to Dr. Serra at [facility] to see if there is any possibility of stenting the cavernous carotids outpatient. htn : keep premissive htn- blood pressure around 150 's .if needed hold home amlodipine for 4 days unless bp consitently above 160. plan: Continue aspirin, Plavix, atorvastatin so adjusted to 80 mg daily. Follow-up outpatient with Dr. serra [facility]. keep permissive htn for 4 days ,if needed hold home amlodipine for 4 days unless bp consitently above 160. Assessment plan coordination time spent 50 minute. Above management discussed with the family in detail. He wants to take patient home they refused str. Time Spent with Patient Time attestation: Total time managing care of this patient today ____ minutes. Discharge coordination time: Greater than 30 minutes Quality: Safe Use of Opioids Does Pt have an Active Cancer Diagnosis on the Problem List?: No Quality: Stroke Does the patient have a stroke diagnosis?: No Physical Exam Vital Signs: Vital Signs: Last Vital Signs Temp 98.3 F 04/15/23 10:57 Pulse 63 04/15/23 10:57 Resp 20 04/15/23 10:57 BP 153/73 H 04/15/23 10:57 Pulse Ox 98 04/15/23 10:57 O2 Del Method Room Air 04/15/23 10:57 BMI result Body Mass Index 25.5 Appearance: awake, Alert.No apparent distress cvs: rrr, [id number] , no murmur res: clear to auscultation ,no rhonchii or wheezing abd: no rebound or guarding ,nt, bs present. ext pulses present , no cyanosis . neuro: axo3 , right-sided weakness 4/5 which is old, speech is soft and mild slurred. Right facial droop. No filed cut. Left side strength is good. Plantar extensor on right DS: Data Imaging Chest x-ray: Radiologist's impression: ITS Impressions Head CT 04/13/23 12:42 IMPRESSION: No CT evidence of acute intracranial abnormality. Evolution of now chronic infarct in the left frontal lobe/schulz radiata with redemonstrated additional chronic lacunar infarcts within the left centrum semiovale, right greater than left thalami, and liana on a background of presumed mild chronic microangiopathic changes. This critical result was communicated to Monico Oquendo MD at 1:10pm on 04/13/2023 and it was ascertained that the content and urgency of the report was understood at the time of direct communication. Brain MRI 04/13/23 20:43 IMPRESSION: Acute infarct in the medial right thalamus. Discharge Plan Discharge Anticipated Discharge Date/Time: 04/15/23 11:28 Patient Disposition: Home Health Service Discharge Diagnosis: cva . Referrals: [facility] [Outside] - 1 Week Po,Ludy Minaya MD [Primary Care Provider] - 1 Week Discharge Medications: Continued (DME) Transport wheelchair See Rx Instructions .Route .MEDSUPPLY Qty: 1 0RF Rx Instructions: As directed multivitamin Tablet 1 tab PO DAILY 90 Days Qty: 90 3RF (DME) lancets [FreeStyle Lancets] 28 gauge misc See Rx Instructions .ROUTE .MEDSUPPLY Qty: 100 3RF Rx Instructions: As directed check the blood sugar once a day (DME) adult diapers size small petite See Rx Instructions .Route .MEDSUPPLY Qty: 90 12RF Rx Instructions: As directed (DME) FreeStyle Lite Strips Strip See Rx Instructions .ROUTE .MEDSUPPLY Qty: 100 11RF Rx Instructions: As directed 3 x/day (DME) Adult pull ups medium package See Rx Instructions .Route .MEDSUPPLY Qty: 90 11RF Rx Instructions: 8 Per day (PRN), 11 refills for 12 months. (DME) stair lift See Rx Instructions .Route .MEDSUPPLY Qty: 1 0RF Rx Instructions: As directed (DME) disposable gloves [Disposable Latex-Free Gloves] Misc See Rx Instructions .Route Qty: 1000 3RF Rx Instructions: As directed sertraline 100 mg tablet 200 mg PO DAILY 30 Days Qty: 180 1RF ursodiol 250 mg tablet 250 mg PO TID Qty: 270 0RF clopidogrel 75 mg tablet 75 mg PO DAILY Qty: 30 0RF loratadine 10 mg tablet 10 mg PO BEDTIME Qty: 90 0RF sennosides [senna] 8.6 mg tablet 17.2 mg PO BEDTIME Qty: 90 0RF simethicone 80 mg tablet,chewable 80 mg PO TID Qty: 90 3RF risperidone 1 mg tablet 1 mg PO BEDTIME Qty: 30 1RF metformin 500 mg tablet 500 mg PO BID losartan 25 mg Tablet 12.5 mg PO DAILY Qty: 90 0RF Protocol: Hold for SBP< HOLD for SBP < : 90 Artificial Tears(he-ohyw-cegg) 1-0.2-0.2 % Drops 2 drp ophthalmic-Right Q4H Qty: 15 2RF polyethylene glycol 3350 [Purelax] 17 gram powder in packet 17 g PO DAILY PRN (Reason: constipation) cholecalciferol (vitamin D3) 50 mcg (2,000 unit) capsule 50 mcg PO DAILY (DME) pen needle, diabetic [Comfort EZ Pen [place]] 31 gauge x 3/16 needle See Rx Instructions .Route Qty: 100 3RF Rx Instructions: As directed (DME) MOUTH GUARD See Rx Instructions .Route .MEDSUPPLY Qty: 1 0RF Rx Instructions: As directed (DME) Walker with seat and wheels See Rx Instructions .Route .MEDSUPPLY Qty: 1 0RF Rx Instructions: As directed (DME) WIPES See Rx Instructions .Route .MEDSUPPLY Qty: 1 12RF Rx Instructions: As directed aspirin 81 mg tablet,delayed release (DR/EC) 81 mg PO DAILY Qty: 90 3RF acarbose 50 mg tablet 50 mg PO TID Qty: 90 4RF furosemide [Lasix] 20 mg tablet 20 mg PO DAILY Qty: 90 0RF albuterol sulfate 90 mcg/actuation HFA aerosol inhaler 1 inh inhalation QID PRN (Reason: Shortness Of Breath Or Wheezing) Changed atorvastatin 40 mg tablet 80 mg PO BEDTIME Qty: 90 0RF Held amlodipine 5 mg Tablet 5 mg PO DAILY Qty: 90 0RF Hold Instructions: Resume on 04/17/23. Protocol: Hold for SBP< HOLD for SBP < : 90 Discharge Orders: Discharge Order (Routine); Ordered 04/15/23 Ordered By: Thierry Fitzpatrick Diet: Advance to usual diet Activity on Discharge: As tolerated Stand Alone Forms: Patient Portal Discharge page Care Plan Goals: Patient was admitted for acute CVA demonstrated on MRI: Patient was seen by Neurology: Recommended to continue aspirin, Plavix, adjusted atorvastatin to 80 mg. Neurology sent information to Dr. Serra at [facility] to see if there is any possibility of stenting the cavernous carotids outpatient. htn : keep premissive htn- blood pressure around 150 's .if needed hold home amlodipine for 4 days unless bp consitently above 160. Health Concerns: as above. Plan of Treatment: as above. Assessment: as above.
--- NOTE | 2023-04-15 11:48 | MHC.CM.PN ---
Per 's request, CM spoke with /First HCP Agent/Alex @ [phone] with the assist of a Telephonic Video Library Assistant; Alex was unable to provide direction on dc planning (home vs STR), but did give CM permission to work with Maddie(Secondary HCP Agent). BERNABE was not able to reach Maddie at [phone]. BERNABE will continue to try to reach Maddie. is aware.
--- NOTE | 2023-04-15 12:39 | MHC.CM.PN ---
Per MD, Patient is medically cleared for dc to home today, with services. 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 Patient will return home today at 3 PM, via [facility]; Maddie has confirmed that she will be waiting to receive Patient back into her care.
[2023-04-19 11:20] LABS: Prothrombin Time Whole Bld POC 13.5 sec (11.1-13.5); ~PT, ~INR - Anti Coag Clinic 1.1 (0.9-1.1)
== END 2023-04-15 15:18 | disposition home health service (06) | DRG 45 ==
LOC: HO.ED 15:51 → HO.EDOVER 22:48 → HO.IMC 04-14 08:39
PROVIDERS: Admitting Provider Internal Medicine; Emergency Provider Emergency Medicine; PCP Internal Medicine; Visit Provider Internal Medicine
DX: I63.9 Cerebral infarction, unspecified (principal); E11.42 Type 2 diabetes mellitus with diabetic polyneuropathy; R47.81 Slurred speech; I10 Essential (primary) hypertension; J45.20 Mild intermittent asthma, uncomplicated; Z98.84 Bariatric surgery status; Z91.040 Latex allergy status; Z79.02 Long term (current) use of antithrombotics/antiplatelets; Z79.82 Long term (current) use of aspirin; Z79.84 Long term (current) use of oral hypoglycemic drugs; Z79.899 Other long term (current) drug therapy
CPT/HCPCS: 36415; 70450; 70551; 80053; 80061; 82947; 84484; 85025; 85610; 92610; 93005; 97162; 97165; 97166; 99285; J1650

== ENCOUNTER → 2023-04-13 22:43 | Outpatient (BNV) | payer OTHER, SELFPAY | PROVIDERS: Admitting Provider Internal Medicine; Emergency Provider Emergency Medicine; PCP Internal Medicine; Visit Provider Internal Medicine | DX: I63.9 Cerebral infarction, unspecified (principal) | CPT/HCPCS: 99223; 99231; 99239 ==

== ENCOUNTER 2023-04-20 11:19 | Outpatient (AMB) | payer OTHER, SELFPAY ==
[2023-04-20 11:23] VITALS: BP 128/62; PULSE 78; O2SAT 96
--- NOTE | 2023-04-20 11:23 | A.OFFPC_ITS ---
Vital Signs 04/20/23 11:23 Height 5 ft BMI Reason not done Patient refused/unable BP 128/62 Blood Pressure Location Lt brachial Position Sitting Pulse 78 Pulse Source Pulse Oximeter Temp Source Skin Pulse Oximetry (%) 96 Oxygen Delivery Method Room Air Intake Visit Reasons: [facility] 04/15/23 Intake Note: Patient is here for hospital discharge follow up. Patient was discharged from [facility] on 04/15/23 for stroke . 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 ] albuterol sulfate 90 mcg/actuation 1 inh inhalation QID PRN amlodipine 5 mg See Protocol PO DAILY aspirin 81 mg PO DAILY atorvastatin 80 mg (2 x 40 mg) PO BEDTIME blood sugar diagnostic (FreeStyle Lite Strips) As directed 3 x/day cholecalciferol (vitamin D3) 50 mcg PO DAILY clopidogrel 75 mg PO DAILY disposable gloves (Disposable Latex-Free Gloves) As directed furosemide (Lasix) 20 mg PO DAILY lancets (FreeStyle Lancets) As directed check the blood sugar once a day loratadine 10 mg PO BEDTIME losartan 12.5 mg See Protocol PO DAILY metformin 500 mg PO BID [MOUTH GUARD As directed] multivitamin 1 tab PO DAILY 90 days peg [id number] 1-0.2-0.2 % (Artificial Tears ([id number])) 2 drps ophthalmic-Right Q4H pen needle, diabetic (Comfort EZ Pen [place]) As directed polyethylene glycol 3350 (Purelax) 17 grams PO DAILY PRN risperidone 1 mg PO BEDTIME sennosides (senna) 17.2 mg (2 x 8.6 mg) PO BEDTIME sertraline 200 mg (2 x 100 mg) PO DAILY 30 days simethicone 80 mg PO TID [stair lift As directed] [Transport wheelchair As directed] ursodiol 250 mg PO TID [Walker with seat and wheels As directed] [WIPES As directed] Tobacco use date assessed: 04/20/23 Fall risk assessment: No Falls in past year Last assessed Fall Risk: 04/20/23 [facility] 04/15/23 [facility] Details Patient is a 62-year-old female presents today to follow-up after [facility] discharge. Admission date 04/13/2023, discharge date 04/15/2023. Discharge diagnosis acute stroke due to ischemia. Patient of Dr. Alonso. 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 CT head no acute stroke, MRI show Acute infarct in the medial right thalamus. Out of window for tPA. Hospital course: Patient was admitted for acute CVA demonstrated on MRI: Patient was seen by Neurology: Recommended to continue aspirin, Plavix, adjusted atorvastatin to 80 mg. Neurology sent information to Dr. Serra at [facility] to see if there is any possibility of stenting the cavernous carotids outpatient. htn : keep premissive htn- blood pressure around 150 's .if needed hold home amlodipine for 4 days unless bp consitently above 160. plan: Continue aspirin, Plavix, atorvastatin so adjusted to 80 mg daily. Follow-up outpatient with Dr. serra [facility]. keep permissive htn for 4 days ,if needed hold home amlodipine for 4 days unless bp consitently above 160. Assessment plan coordination time spent 50 minute. Above management discussed with the family in detail. He wants to take patient home they refused str. Care Plan Goals: Patient was admitted for acute CVA demonstrated on MRI: Patient was seen by Neurology: Recommended to continue aspirin, Plavix, adjusted atorvastatin to 80 mg. Neurology sent information to Dr. Serra at [facility] to see if there is any possibility of stenting the cavernous carotids outpatient. htn : keep premissive htn- blood pressure around 150 's .if needed hold home amlodipine for 4 days unless bp consitently above 160. Today, patient is accompanied by her daughter Maddie who helps with Turkmen interpretation and provides history for the patient. Patient has an upcoming appointment with Dr. Meza this month. They did not hear back from Dr. Serra and daughter reports that somebody call them from [facility] yesterday and they will follow-up on this, also encouraged daughter to call Dr. Meza office as well. Patient has visiting nurses daily, also has home PT. patient also will be having home speech therapy and OT. 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 Since being discharged from the hospital patient also needs help with feeding. Incontinent of urine. Also patient unable to walk since being discharged from the hospital, and family helps with all transfers. Patient denies shortness of breath or chest pain. [facility] Medical History History of CVA (cerebrovascular accident) Dysphagia Hypertension Hypertensive urgency Cervical osteoarthritis Osteoarthritis of right glenohumeral joint Shoulder pain, right BOB positive CVA (cerebral vascular accident) HTN (hypertension) Primary biliary cholangitis Fatty liver disease, nonalcoholic History of umbilical hernia Postural hypotension Sjogrens syndrome GERD (gastroesophageal reflux disease) History of sleep apnea Asthma Subclinical hypothyroidism Hypertension Dyslipidemia Diabetic retinopathy associated with type 2 diabetes mellitus Diabetic polyneuropathy associated with type 2 diabetes mellitus Hypoglycemia after GI (gastrointestinal) surgery Diabetes type 2, uncontrolled Surgical History Hx of dilation and curettage Hx of tonsillectomy History of laparoscopic appendectomy History of carpal tunnel release Hx of colonoscopy History of esophagogastroduodenoscopy (EGD) History of partial hysterectomy Hx of section Hx of gastric bypass Family History Father [place] (myocardial infarction) Diabetes mellitus Mother Diabetes mellitus CVA (cerebral vascular accident) Maternal Grandmother Stomach cancer Sister Hemorrhagic cerebrovascular accident (CVA) Social History Household Members: Spouse Housing: House Are you a primary respite care provider to a significant other at home: No Do you presently have visiting nurse or other home services: Yes (Pt requires 24 hour care, She has a VNA nurse but no SALES AND MARKETING DIRECTOR yet in the house) Alcohol intake: never Patient Tobacco Use Status: Never used Tobacco e-Cigarette/Vaping Use: Never Used Second Hand Smoke Exposure: No Advance Directives Date on File: 03/07/23 service: No Current occupational status: disabled Cognitive needs: Yes (wheelchait) Hearing needs: No Vision needs: No Questionnaire PHQ-9 Over the last 2 weeks, how often have you been bothered by any of the following problems? 1. Little interest or pleasure in doing things: not at all 2. Feeling down, depressed, or hopeless: not at all 3. Trouble falling or staying asleep, or sleeping too much: not at all 4. Feeling tired or having little energy: not at all 5. Poor appetite or overeating: not at all 6. Feeling bad about yourself - or that you are a failure or have let yourself or your family down: not at all 7. Trouble concentrating on things, such as reading the newspaper or watching television: not at all 8. Moving or speaking so slowly that other people could have noticed. Or the opposite - being so fidgety or restless that you have been moving around a lot more than usual: not at all 9. Thoughts that you would be better off or of hurting yourself in some way: not at all Total score: 0 Depression Screening Interpretation: Negative Depression Screening Done: Yes 46454 - PHQ-9 Billing: Yes Source: Developed by Drs. Ari Patrick, Bonny Hanks, David Rebollar and colleagues, with an educational kevin from [employer]. Thrive Questionnaire Date Thrive assessed: 04/15/23 AUDIT C Alcohol Use Questionnaire (AUDIT-C) 1. How often do you have a drink containing alcohol?: Never Total Score: 0 Score Reviewed/Action Taken: No DYLAN-7 AMB Questionnaire DYLAN-7 Date DYLAN - 7 assessed: 10/17/22 Source: Developed by Drs. Ari Patrick, Bonny Hanks, David Rebollar and colleagues, with an educational kevin from [employer]. Review of Systems Const Denies body aches, Denies chills, Denies fever(s) and Denies headache(s) ENT Denies dizziness, Denies otalgia, Denies headache(s), Denies nasal discharge, Denies sinus pain and Denies sore throat Card Denies chest pain, Denies edema, Denies lightheadedness and Denies dyspnea Resp Denies dyspnea and Denies wheezing GI Denies abdominal pain Reports as per HPI and Denies dysuria Musc Denies myalgias Skin/Breast Denies rash Neuro Denies dizziness and Denies headache(s) Aller/Immun Denies wheezing Physical exam (Primary Care) Vital Signs: Last Vital Signs Pulse 78 04/20/23 11:23 BP 128/62 04/20/23 11:23 Pulse Ox 96 04/20/23 11:23 Oxygen Delivery Method Room Air 04/20/23 11:23 Tobacco/Smoking Status: Tobacco use Status Tobacco use date assessed 04/20/23 04/20/23 11:25 Patient Tobacco Use Status Never used Tobacco 04/20/23 11:25 e-Cigarette/Vaping Use Never Used 04/20/23 11:25 PHQ-9: PHQ-9 Score PHQ-9: Total score 0 04/20/23 11:40 Depression Screening Interpretation: Negative Thrive Assessment: Date of Thrive Assessment Date Thrive assessed 04/15/23 04/20/23 11:25 Const Other: In wheelchair General: cooperative and no acute distress HENMT Other: Mild right facial droop Head: Yes normocephalic and Yes atraumatic Mouth: oropharynx normal and moist mucous membranes Throat: Yes posterior oropharynx normal Eyes General: appearance normal, both eyes and all related structures Pupils: Equal, round and reactive pupils present EOM: EOMs intact bilaterally Neck Neck: Yes normal visual inspection and Yes full ROM Resp Effort & Inspection: normal respiratory effort and able to speak in complete sentences Auscultation: clear to auscultation bilaterally, no crackles, no rales, no rhonchi and no wheezes Cardio Rate: regular rate Rhythm: regular rhythm Heart sounds: S1 normal heart sound present and S2 normal heart sound present GI Auscultation: normal bowel sounds Skin General skin exam: no rashes or lesions noted Neuro Other: Right-sided weakness which is mild - RUE Cranial nerves: Yes Equal, round and reactive pupils present Extrem General: No edema Assessment and Plan Assessment & Plan (1) Acute stroke due to ischemia: Comment: medial right [id number] Code(s): I63.9 - Cerebral infarction, unspecified Plan: Continue aspirin, Plavix, atorvastatin 80 mg daily Keep appointment with Dr. Meza as scheduled They did not hear back from Dr. Serra and daughter reports that somebody call them from [facility] yesterday in regards to this and they will follow-up on this, also encouraged daughter to call Dr. Meza office as well. Signs and symptoms reviewed when to notify provider or to the emergency department (2) Hospital discharge follow-up: Code(s): Z09 - Encounter for follow-up examination after completed treatment for conditions other than malignant neoplasm Plan Keep appointment PCP as scheduled or follow-up sooner as needed Coding Level of Care Code Est Pt Level 3 (69977) Diagnoses Acute stroke due to ischemia I63.9 Hospital discharge follow-up Z09
== END 2023-04-20 12:20 | disposition home or self-care (01) ==
PROVIDERS: PCP Internal Medicine; Visit Provider Nurse Practitioner Family
DX: I69.354 Hemiplegia and hemiparesis following cerebral infarction affecting left non-dominant side (principal); E11.40 Type 2 diabetes mellitus with diabetic neuropathy, unspecified; J45.20 Mild intermittent asthma, uncomplicated; E03.9 Hypothyroidism, unspecified
CPT/HCPCS: 99213

== ENCOUNTER 2023-04-22 13:33 | Inpatient (IN) | payer OTHER, SELFPAY ==
--- NOTE | ~2023-04-22 | MR_ITS ---
EXAMINATION: MR BRAIN WITHOUT CONTRAST CLINICAL INFORMATION: Stroke. COMPARISON: MRI dated 04/13/2023. TECHNIQUE: Multiplanar, multisequence imaging of the brain was performed without contrast. FINDINGS: There is a punctate acute infarct in the right frontal centrum semiovale, new compared to prior imaging. A previous acute infarct involving the medial right thalamus is no longer seen on diffusion imaging. Numerous chronic infarcts are again visible in the liana with surrounding gliosis. There are chronic lacunar infarcts as well in the deep alvarez matter structures. The ventricles are normal in size. No mass effect or midline shift is seen. Mild chronic white matter microangiopathic changes are stable with chronic infarcts in the centrum semiovale bilaterally and in the right parietal white matter posteriorly. No extra-axial fluid collections are seen. There is stable cerebellar volume loss. Chronic hemosiderin staining in the ventral and central portion of the liana again noted on the gradient refocused acquisition, otherwise stable. The craniovertebral junction, marrow signal, and remaining midline structures are normal. The major intracranial flow voids at the level of the [place] are preserved. The dural venous sinus flow voids are maintained. The mastoid air cells are well aerated. There is [id number] mucosal thickening in the posterior ethmoid air cells. MR/MR head/brain wo con IMPRESSION: Small acute infarct in the high right frontal lobe. Stable extensive scattered chronic infarcts in the cerebral white matter, deep alvarez matter structures, and brainstem. Chronic hemosiderin staining in the liana. Subacute evolutional changes of the previously seen medial right thalamic infarct.
--- NOTE | ~2023-04-22 | CT_ITS ---
CT head/brain wo IV con CLINICAL INFORMATION: Reason for Exam stroke COMPARISON: Prior CT scan from 04/13/2023 TECHNIQUE: Department standard protocol. This CT examination was performed using dose optimization techniques as appropriate, variously including the following: *Automated exposure control *Adjustment of mA and/or kV according to patient size (this includes techniques or standardized protocols for targeted exams where dose is matched to indication/reason for exam; i.e. extremities or head) *Use of iterative reconstruction technique DLP: 480 mGy-cm FINDINGS: CEREBRAL HEMISPHERES: Redemonstration of low-attenuation in the left frontoparietal region likely an old infarct unchanged. BRAIN PARENCHYMA: Normal alvarez-white matter differentiation. SUBDURAL SPACE: No bleed. BASAL GANGLIA AND PINEAL GLAND: Redemonstration of lacunar infarct in the right thalamus. VENTRICLES: Symmetric and normal in size. CEREBELLUM AND BRAINSTEM: Redemonstration of hypodense area in the brainstem/liana likely an acute infarct, unchanged from prior exams. CEREBELLOPONTINE ANGLES: No lesion found. ORBITS: No intraorbital mass. VESSELS: Unremarkable SKULL BASE: Unremarkable INCLUDED SINUSES AT SKULL BASE: Clear SKULL AND SKIN: No fracture or bone lesion found. CT/CT head/brain wo IV con IMPRESSION: There are multiple areas of low attenuation in the left parietal lobe, right thalamus, and brainstem/liana compatible with infarcts, these were seen better visualized on recent prior MRI 04/13/2023 unchanged from most recent CT of 04/13/2023. No intracranial bleed. (Referring physician staff is being called, by physician staff assistance, to be alerted of the above critical findings and recommendations.) Ginette Pearson 04/22/2023 3:23 PM
--- NOTE | ~2023-04-22 | XR_ITS ---
EXAMINATION: XR CHEST CLINICAL INFORMATION: Stroke COMPARISON: 01/19/2023 TECHNIQUE: Frontal view of the chest was obtained. FINDINGS: No significant abnormality is noted involving the heart, lungs, mediastinum, bony thorax or soft tissues. XR/XR chest 1V IMPRESSION: Unremarkable examination.
[2023-04-22 13:38] VITALS: BP 144/88; PULSE 72; O2SAT 98
[2023-04-22 13:44] VITALS: BP 151/67; PULSE 67; RESP 12; TEMP 36.6; O2SAT 97; BMI 22.6
[2023-04-22 13:47] LABS: Glucose, Whole Blood 227 mg/dL (60-115)
--- NOTE | 2023-04-22 13:57 | ED.NEUROSD ---
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 patient had the multiple previous stroke affecting both hemisphere causing the patient to have bilateral weakness right more the left. Patient had similar presentation last week and MRI revealed a CVA patient is taking aspirin, Plavix. Related Data Home Medications Medication Instructions Recorded Confirmed albuterol sulfate 90 mcg/actuation 1 inh inhalation QID PRN Shortness 04/28/20 04/20/23 aerosol inhaler Of Breath Or Wheezing polyethylene glycol 3350 17 gram 17 g PO DAILY PRN constipation 10/25/22 04/20/23 oral powder packet (Purelax) metformin 500 mg tablet 500 mg PO BID 01/19/23 04/20/23 Previous Rx's Medication Instructions Recorded pen needle, diabetic 31 gauge x #100 ea 02/24/2109/22 (Comfort EZ Pen [place]) Transport wheelchair #1 ea 08/11/21 multivitamin 1 tab PO DAILY 90 days #90 tabs 09/13/21 Walker with seat and wheels #1 ea 09/28/21 lancets 28 gauge (FreeStyle #100 ea 12/28/21 Lancets) MOUTH GUARD #1 ea 06/08/22 adult diapers size small petite #90 ea 08/03/22 blood sugar diagnostic (FreeStyle #100 ea 11/28/22 Lite Strips) Adult pull ups #90 ea 12/13/22 stair lift #1 ea 12/16/22 disposable gloves (Disposable #1,000 ea 01/03/23 Latex-Free Gloves) amlodipine 5 mg tablet 5 mg PO DAILY #90 tabs 01/21/23 losartan 25 mg tablet 12.5 mg PO DAILY #90 tabs 01/21/23 peg [id number] 1 2 drp ophthalmic-Right Q4H #15 mL 07/15/23 %-0.2 %-0.2 % eye drops (Artificial Tears ([id number])) sertraline 100 mg tablet 200 mg (2 x 100 mg) PO DAILY 30 01/30/23 days #180 tabs ursodiol 250 mg tablet 250 mg PO TID #270 tabs 02/14/23 furosemide 20 mg tablet (Lasix) 20 mg PO DAILY #90 tabs 02/15/23 clopidogrel 75 mg tablet 75 mg PO DAILY #30 tabs 03/13/23 loratadine 10 mg tablet 10 mg PO BEDTIME #90 tabs 03/15/23 WIPES #1 ea 03/28/23 acarbose 50 mg tablet 50 mg PO TID #90 tabs 03/28/23 aspirin 81 mg tablet,delayed 81 mg PO DAILY #90 tabs 03/28/23 release sennosides 8.6 mg tablet (senna) 17.2 mg (2 x 8.6 mg) PO BEDTIME 03/31/23 #90 tabs simethicone 80 mg chewable tablet 80 mg PO TID #90 tabs 04/03/23 risperidone 1 mg tablet 1 mg PO BEDTIME #30 tabs 04/06/23 atorvastatin 40 mg tablet 80 mg (2 x 40 mg) PO BEDTIME #90 04/15/23 tabs cholecalciferol (vitamin D3) 50 50 mcg PO DAILY #90 caps 04/18/23 mcg (2,000 unit) capsule Allergies Allergy/AdvReac Type Severity Reaction Status Date / Time Latex, Natural Rubber Allergy Intermediate Rash Verified 04/20/23 11:39 Sulfa (Sulfonamide AdvReac Intermediate Stomach Verified 04/20/23 11:39 Antibiotics) Upset [SULFA (SULFONAMIDE ANTIBIOTICS)] Morphine Sulfate AdvReac Intermediate Abdominal Uncoded 04/20/23 11:39 Pain Review of Systems Review of Systems: All other systems are reviewed and are negative Constitutional: Reports as per HPI and Reports no additional constitutional complaints Eyes: Reports as per HPI and Reports no additional eye complaints Reports system reviewed and no additional complaints, except as documented Cardiovascular: Reports as per HPI and Reports no additional cardiovascular complaints Respiratory: Reports as per HPI and Reports no additional respiratory complaints Gastrointestinal: Reports as per HPI and Reports no additional gastrointestinal complaints Genitourinary: Reports no additional female genitourinary complaints Musculoskeletal: Reports no additional musculoskeletal complaints Skin/Breast: Reports system reviewed and no additional complaints, except as docu Psychiatric: Reports no additional psychiatric complaints Endocrine: Reports no additional endocrine complaints Hematologic/Lymphatic: Reports no additional hematologic/lymphatic complaints Allergic/Immunologic: Reports no additional allergic/immunologic complaints Reports system reviewed and no additional complaints, except as documented and Reports Abnormal speech present [facility] Past Medical History Medical History History of CVA (cerebrovascular accident) Dysphagia Hypertension Hypertensive urgency Cervical osteoarthritis Osteoarthritis of right glenohumeral joint Shoulder pain, right BOB positive CVA (cerebral vascular accident) HTN (hypertension) Primary biliary cholangitis Fatty liver disease, nonalcoholic History of umbilical hernia Postural hypotension Sjogrens syndrome GERD (gastroesophageal reflux disease) History of sleep apnea Asthma Subclinical hypothyroidism Hypertension Dyslipidemia Diabetic retinopathy associated with type 2 diabetes mellitus Diabetic polyneuropathy associated with type 2 diabetes mellitus Hypoglycemia after GI (gastrointestinal) surgery Diabetes type 2, uncontrolled Surgical History Hx of dilation and curettage Hx of tonsillectomy History of laparoscopic appendectomy History of carpal tunnel release Hx of colonoscopy History of esophagogastroduodenoscopy (EGD) History of partial hysterectomy Hx of section Hx of gastric bypass Family History Family History Father [place] (myocardial infarction) Diabetes mellitus Mother Diabetes mellitus CVA (cerebral vascular accident) Maternal Grandmother Stomach cancer Sister Hemorrhagic cerebrovascular accident (CVA) Social History Social History Household Members: Spouse Housing: House Are you a primary care director rn to a significant other at home: No Do you presently have visiting nurse or other home services: Yes (Pt requires 24 hour care, She has a VNA nurse but no FURNA[employer] PROCESS PLANT OPERATOR yet in the house) Alcohol intake: never Patient Tobacco Use Status: Never used Tobacco e-Cigarette/Vaping Use: Never Used Second Hand Smoke Exposure: No Advance Directives: No Advance Directives Information Provided: No Advance Directives Date on File: 03/07/23 service: No Current occupational status: disabled Cognitive needs: Yes (wheelchait) Hearing needs: No Vision needs: No Physical Exam Vital Signs: Vital Signs: Last Vital Signs Temp 98.1 F 04/22/23 15:39 Pulse 62 04/22/23 15:39 Resp 16 04/22/23 15:39 BP 125/54 L 04/22/23 15:39 Pulse Ox 98 04/22/23 15:39 O2 Del Method Room Air 04/22/23 15:39 BMI result Body Mass Index 22.6 Vital signs have been reviewed and appear to be correct. Blood pressure elevated. Heart rate normal. Respiratory rate normal. Temperature normal. Oxygen saturation normal. Appearance: Alert. Oriented X3. No acute distress. Head: Normal external exam. Normocephalic. Atraumatic. No Neville signs noted. No raccoon eyes noted Eyes: PERRLA. EOMI. Conjunctiva and sclera normal. Eyelids normal. ENT: TM's Normal. Pharynx normal. Uvula midline. Moist mucous membranes. No trismus noted. No drooling noted. No muffled voice noted. Neck: Normal inspection. Neck supple. FROM. No adenopathy. Thyroid Normal. No meningeal signs. No neck mass noted. CVS: Normal heart rate and rhythm. Heart sound normal. No murmurs noted. Pulses normal throughout. Respiratory: No respiratory distress. Painless inspiration. Breath sounds normal. No wheezes/rales/rhonchi noted. Chest nontender. No accessory muscle usage noted or decreased air movement noted. Abdomen: Soft and nontender. Bowel sounds normal in all 4 quadrants. No distention noted. No organomegaly noted. No visible injury noted. Back: No CVA tenderness. Full range of motion noted. Skin: Skin warm and dry. Normal skin color. Normal skin turgor. No rashes/lesions/lacerations noted. Extremities: No lower extremity edema. Extremities exhibit normal range of motion. Extremities nontender. Neuro: Oriented X 3. Cranial nerve exam: II-XII are grossly intact No motor deficit. No sensory deficit. Reflexes normal. Course Reevaluation(s) Reevaluation #1: Multiple CVAs affecting bilateral hemispheres causing bilateral weakness right more the left. Last patient was seen at baseline was yesterday at 18:00 by the F[employer] OPERATOR. Time: 14:06 Reevaluation #2: Case discussed with Dr. Jordan Patient to be admitted for neuro consultation. Time: 16:08 Medical Decision Making Differential Diagnosis Differential Diagnoses: The differential diagnosis associated with the presentation includes ( ischemic CVA, hemorrhagic CVA, electrolyte abnormality, severe anemia.) Admission/Observation Consideration of admission/observation: Escalation of care including admission/observation considered Consult Healthcare Provider Management of the patient was discussed with: Hospitalist (Dr. Jordan) Lab Data MDM Lab Attestation statement: I reviewed the patient's lab results. 04/22/23 15:36 04/22/23 15:36 Labs: Lab Results 04/22/23 04/22/23 04/22/23 Range/Units 13:38 14:33 15:36 WBC 6.7 (4.8-10.8) X10*3/uL RBC 4.72 (4.20-5.50) X10*6/uL Hgb 11.9 L (12.0-16.0) g/dl Hct 37.7 (37.0-47.0) % MCV 79.9 L (80.0-98.0) fL MCH 25.2 L (27.0-33.0) pg MCHC 31.6 (31.0-35.0) g/dl RDW 16.5 H (11.0-16.0) % Plt Count 271 (160-400) X10*3/uL MPV 13.1 H (9.4-12.3) fL Immature Gran % (Auto) 0.3 (0.0-0.4) % Neut % (Auto) 54.2 (45-73) % Lymph % (Auto) 31.5 (20-40) % Elliott % (Auto) 10.5 (2-11) % Eos % (Auto) 2.8 (0-4) % Baso % (Auto) 0.7 (0-2) % Lymph # (Auto) 2.1 (1.2-4.9) X10*3/uL Elliott # (Auto) 0.7 (0.1-1.2) X10*3/uL Eos # (Auto) 0.2 (0.0-0.4) X10*3/uL Baso # (Auto) 0.1 (0.0-0.2) X10*3/uL Abs Immat Gran (auto) 0.02 (0.00-0.03) X10*3/uL Absolute Neuts (auto) 3.6 (2.0-8.3) x10*3/uL Absolute Nucleated RBC 0.000 (0.0-0.012) X10*3/uL Nucleated RBC % (auto) 0.0 (0.0-0.2) /100WBC PT 12.9 (11.1-13.3) SEC INR 1.1 (0.9-1.1) APTT 36.6 H (26.0-36.4) SEC Sodium 142 (135-145) mmol/L Potassium 4.5 D (3.3-5.1) mmol/L Chloride 104 (96-108) mmol/L Carbon Dioxide 24 (22-29) mmol/L Anion Gap 19 (12-20) BUN 17 H (9-16) mg/dL Creatinine 0.73 (0.5-1.4) mg/dL Estim Creat Clear Calc 55.8 Estimated GFR > 60 POC Glucose 227 H (60-115) mg/dL Random Glucose 141 H (60-115) mg/dL Calcium 9.8 (8.4-10.2) mg/dL Total Bilirubin 0.2 (0.0-1.0) mg/dL Direct Bilirubin < 0.2 (0.0-0.5) mg/dL AST 37 H (5-31) U/L ALT 40 H (0-31) U/L Alkaline Phosphatase 247 H (39-117) U/L Troponin I High Sens < 2.7 (<3.5-17.0) ng/L B-Natriuretic Peptide 67 (<100) pg/mL Total Protein 7.8 (6.5-8.0) g/dL Albumin 3.7 (3.5-5.0) g/dL Lipase 27 (8-78) U/L Urine Color Yellow Urine Appearance Clear Urine pH 5.5 (5.0-9.0) Ur Specific [place] 1.010 (1.005-1.025) Urine Protein Negative (Neg-Trace) mg/dL Urine Glucose (UA) 100 H (Negative) mg/dL Urine Ketones Negative (Negative) mg/dL Urine Blood Negative (Negative) Urine Nitrite Negative (Negative) Ur Leukocyte Esterase Trace H (Negative) Independent Interpretation I performed an independent interpretation of an: CT Scan ( Head:There are multiple areas of low attenuation in the left parietal lobe, right thalamus, and brainstem/liana compatible with infarcts, these were seen better visualized on recent prior MRI 04/13/2023 unchanged from most recent CT of 04/13/2023.) Radiology Impression Discussion of test interpretation with radiology: I have reviewed the radiologist's reading. Independent Historian Clinical information obtained from an independent historian. History obtained from or confirmed by: Other Chronic Conditions Patient?s care impacted by: Other ( Multiple previous ischemic CVAs.) NIH Stroke Scale Internal: Initial- Upon Arrival Level of Consciousness: Alert Level of Consciousness Questions: Answers both questions correctly Level of Consciousness Commands: Performs both tasks correctly Best Gaze: Normal Visual: No visual loss Facial Palsy: Partial paralysis Motor Arm (Right): Drift Motor Arm (Left): No drift Motor Leg (Right): Drift Motor Leg (Left): No drift Limb Ataxia: Absent Sensory: Normal Best Language: Mild to moderate aphasia Dysarthia: Normal Extinction and Inattention: No abnormality Score: 5 Discharge Plan Discharge Clinical Impression: Acute CVA (cerebrovascular accident) Patient Disposition: Admitted As Inpatient
--- NOTE | 2023-04-22 14:08 | ECG_ITS ---
Test Reason : STROKE Blood Pressure : / mmHG Vent. Rate : 064 BPM Atrial Rate : 064 BPM P-R Int : 164 ms QRS Dur : 066 ms QT Int : 426 ms P-R-T Axes : 047 -07 105 degrees QTc Int : 439 ms Normal sinus rhythm Left ventricular hypertrophy with repolarization abnormality ( R in aVL ) Abnormal ECG When compared with ECG of 13-APR-2023 13:06, No significant change was found Referred By: Mack Acuna Electronically Signed By:ABDIAZIZ COX MD
[2023-04-22 14:46] LABS: Appearance Urine Clear; Color Urine Yellow; Glucose Urine UA 100 mg/dL (Negative); Leukocyte Esterase Urine Trace (Negative); Nitrite Urine Negative (Negative); PH 5.5 (5.0-9.0); UMIC TRIGGER UACC YES; Urine Blood Negative (Negative); Urine Ketones Negative (Negative); Urine Protein Negative (Neg-Trace)
[2023-04-22 15:39] VITALS: BP 125/54; PULSE 62; RESP 16; TEMP 36.7; O2SAT 98
--- NOTE | 2023-04-22 15:40 | MHC.EDTECH ---
this pct assumed care of pt at 1500 ,blood drawn and sent to lab ,vitals taken,pt comfortable no apparent distress,pt daughter and plastics process hand at bedside .
[2023-04-22 15:44] LABS: Basophils Absolute Auto 0.1 X10*3/uL (0.0-0.2); Basophils Percent Auto 0.7 % (0-2); Eosinophils Absolute Auto 0.2 X10*3/uL (0.0-0.4); Eosinophils Percent Auto 2.8 % (0-4); Hematocrit 37.7 % (37.0-47.0); Hemoglobin 11.9 g/dl (12.0-16.0); Imm Gran Abs Auto 0.02 X10*3/uL (0.00-0.03); Imm Gran Pct Auto 0.3 % (0.0-0.4); Lymphocytes Absolute Auto 2.1 X10*3/uL (1.2-4.9); Lymphocytes Percent Auto 31.5 % (20-40); MANUAL DIFF FLAG SCAN; Mean Corpuscular HGB Conc 31.6 g/dl (31.0-35.0); Mean Corpuscular Hemoglobin 25.2 pg (27.0-33.0); Mean Corpuscular Volume 79.9 fL (80.0-98.0); Mean Platelet Volume 13.1 fL (9.4-12.3); Monocytes Absolute Auto 0.7 X10*3/uL (0.1-1.2); Monocytes Percent Auto 10.5 % (2-11); Neutrophils Absolute Auto 3.6 x10*3/uL (2.0-8.3); Neutrophils Percent Auto 54.2 % (45-73); Platelet Count 271 X10*3/uL (160-400); Red Blood Count 4.72 X10*6/uL (4.20-5.50); Red Cell Distribution Width 16.5 % (11.0-16.0); SCAN SMEAR FLAG 1; White Blood Count 6.7 X10*3/uL (4.8-10.8)
[2023-04-22 15:45] LABS: PLT ABN DIST 1
[2023-04-22 15:51] LABS: INTERNATIONAL NORM RATIO 1.1 (0.9-1.1); Prothrombin Time 12.9 SEC (11.1-13.3)
[2023-04-22 15:54] LABS: Partial Thromboplastin Time 36.6 SEC (26.0-36.4)
[2023-04-22 16:06] LABS: Alanine Aminotransferase 40 U/L (0-31); Albumin Level 3.7 g/dL (3.5-5.0); Alkaline Phosphatase 247 U/L (39-117); Anion Gap 19 (12-20); Aspartate Amino Transferase 37 U/L (5-31); Bilirubin Direct < 0.2 mg/dL (0.0-0.5); Bilirubin Total 0.2 mg/dL (0.0-1.0); Blood Urea Nitrogen 17 mg/dL (9-16); Calcium 9.8 mg/dL (8.4-10.2); Carbon Dioxide 24 mmol/L (22-29); Chloride 104 mmol/L (96-108); Creatinine Clr Calc Pharmacy 55.8; Estimated Glomerular Filt Rate > 60; Glucose Random 141 mg/dL (60-115); Lipase 27 U/L (8-78); Potassium 4.5 mmol/L (3.3-5.1); Sodium 142 mmol/L (135-145); Total Protein 7.8 g/dL (6.5-8.0)
[2023-04-22 16:08] LABS: B Type Natriuretic Peptide 67 pg/mL (<100)
--- NOTE | 2023-04-22 16:09 | MHC.EDTECH ---
PATIENT WAS INCONTINENT OF URINE ,CARE GIVEN ,BEDDING CHANGE ,PT RESTING QUIETLY IN BED .
[2023-04-22 16:16] LABS: Troponin-I High Sensitivity < 2.7 ng/L (<3.5-17.0)
[2023-04-22 17:00] LABS: SLIDE REVIEW VERIFIED
--- NOTE | 2023-04-22 17:19 | P.HPHOSP_ITS ---
History of Present Illness Date of Service: 04/22/23 Attending physician on admission: Aj Nikki Chief Complaint: slurred speech, weakness 62-year-old female with history of [id number] type 2 diabetes, mild intermittent asthma, diabetic polyneuropathy, diabetic poly retinopathy, dyslipidemia, GERD, history of recurrent CVA with sequela of bialteral hemiparesis and right sided facial droop, and hypertension presents to the ED earlier today via EMS due to increasing facial droop, slurred speech, and worsening right-sded weakness. She is here today with her weekend WRITING MANAGER and daughter who assist with history. Last known well time was around 21:00 last night. This morning, family noted she was unable to communicate and had increasing weakness on the right side. She has had 4 previous strokes in 2022 and has known severe cavernous carotid stenosis. She is compliant with DAPT. No known arrhythmias. Neurology has reached out to [facility] regarding possible stenting of the cavernous carotids but per family they have not heard back yet. On arrival, vital stable. Hematology studies baseline. Renal function electrolyte levels normal. Glucose 141 on arrival. Troponin undetectable, BNP 67. Urinalysis unremarkable. CXR unremarkable. CT of the head shows multiple areas of low attenuation in the left parietal lobe, right thalamus, and brainstem/liana compatible with prior infarcts and are unchanged. No intracranial bleed. Review of Systems 2 Review of Systems: General: No fevers, malaise, unintentional weight loss HEENT: No blurred vision, diplopia. No sore throat, nasal congestion, rhinorrhea, sinus pain, ear pain Cardiovascular: No chest pain, palpitations, or leg edema Respiratory: No shortness of breath, wheezing, cough GI: No abdominal pain, nausea, vomiting, diarrhea, constipation, melena, hematochezia : No dysuria, hematuria, increased urinary frequency, decreased urinary output MSK: No myalgia, back pain Neuro: + headaches, +weakness, +paresthesias, +slurred speech, +facial droop Skin: No rashes or lesions [facility] Medical History History of CVA (cerebrovascular accident) Dysphagia Hypertension Hypertensive urgency Cervical osteoarthritis Osteoarthritis of right glenohumeral joint Shoulder pain, right BOB positive CVA (cerebral vascular accident) HTN (hypertension) Primary biliary cholangitis Fatty liver disease, nonalcoholic History of umbilical hernia Postural hypotension Sjogrens syndrome GERD (gastroesophageal reflux disease) History of sleep apnea Asthma Subclinical hypothyroidism Hypertension Dyslipidemia Diabetic retinopathy associated with type 2 diabetes mellitus Diabetic polyneuropathy associated with type 2 diabetes mellitus Hypoglycemia after GI (gastrointestinal) surgery Diabetes type 2, uncontrolled Family History Father [place] (myocardial infarction) Diabetes mellitus Mother Diabetes mellitus CVA (cerebral vascular accident) Maternal Grandmother Stomach cancer Sister Hemorrhagic cerebrovascular accident (CVA) Surgical History Hx of dilation and curettage Hx of tonsillectomy History of laparoscopic appendectomy History of carpal tunnel release Hx of colonoscopy History of esophagogastroduodenoscopy (EGD) History of partial hysterectomy Hx of section Hx of gastric bypass Social History Household Members: Spouse Housing: House Are you a primary aged or disabled carer to a significant other at home: No Do you presently have visiting nurse or other home services: Yes (Pt requires 24 hour care, She has a VNA nurse but no WRITING MANAGER yet in the house) Alcohol intake: never Patient Tobacco Use Status: Never used Tobacco e-Cigarette/Vaping Use: Never Used Second Hand Smoke Exposure: No Advance Directives: No Advance Directives Information Provided: No Advance Directives Date on File: 03/07/23 service: No Current occupational status: disabled Cognitive needs: Yes (wheelchait) Hearing needs: No Vision needs: No Meds Allergies Allergy/AdvReac Type Severity Reaction Status Date / Time Latex, Natural Rubber Allergy Intermediate Rash Verified 04/20/23 11:39 Sulfa (Sulfonamide AdvReac Intermediate Stomach Verified 04/20/23 11:39 Antibiotics) Upset [SULFA (SULFONAMIDE ANTIBIOTICS)] Morphine Sulfate AdvReac Intermediate Abdominal Uncoded 04/20/23 11:39 Pain Active Medications: Current Medications Acetaminophen (Acetaminophen 325 Mg Tablet) 650 mg PO Q6H PRN PRN Reason: Pain, Mild (Pain Scale 1-3) Docusate Sodium (Docusate Sodium 100 Mg Capsule) 100 mg PO DAILY PRN PRN Reason: Constipation Enoxaparin Sodium (Enoxaparin Sodium 40 Mg/0.4 Ml Syringe) 40 mg SUBCUT Q24H SHARON Ondansetron HCl (Ondansetron Hcl 4 Mg/2 Ml Vial) 4 mg IVPUSH Q8H PRN PRN Reason: Nausea and Vomiting Sodium Chloride (0.9 % Sodium Chloride Flush 3 Ml Syringe) 3 ml IVFLUSH QSHIFT [facility] Home Medications Medication Instructions Recorded Confirmed Last Taken Type albuterol sulfate 90 mcg/actuation 1 inh inhalation QID PRN Shortness 04/28/20 04/22/23 03/06/23 History aerosol inhaler Of Breath Or Wheezing polyethylene glycol 3350 17 gram 17 g PO DAILY PRN constipation 10/25/22 04/22/23 10/25/22 History oral powder packet (Purelax) metformin 500 mg tablet 500 mg PO BID 01/19/23 04/22/23 03/06/23 History peg [id number]-[id number] 1 2 drp ophthalmic-Right Q4H PRN Dry 04/22/23 04/22/23 Unknown History %-0.2 %-0.2 % eye drops Eyes (Artificial Tears ([id number])) Physical Exam 2 Vital Signs and Narrative: Vital Signs: Last Vital Signs Temp 98.1 F 04/22/23 15:39 Pulse 62 04/22/23 15:39 Resp 16 04/22/23 15:39 BP 125/54 L 04/22/23 15:39 Pulse Ox 98 04/22/23 15:39 O2 Del Method Room Air 04/22/23 15:39 BMI result Body Mass Index 22.6 Constitutional - Awake and Alert, No apparent distress Eyes - PERRLA, EOMI Cardiovascular - S1S2, RRR, No edema Respiratory - Normal lung expansion, Normal respiratory effort, No respiratory distress, CTA bilaterally Gastrointestinal - NT / ND; +BS; No rebound or guarding Extremities - no calf tenderness bilaterally, no swelling Skin - Warm/Dry Neurological - Alert & oriented x3, right sided facial droop with loss of nasolabial fold and slurred speech, otherwise CN II-XII in tact, 4/5 strength LUE, can lift RUE briefly before falling. 1/5 BLE strength Psychological - Appropriate affect Results Labs 04/22/23 15:36 04/22/23 15:36 Labs: Laboratory Results - last 24 hr 04/22/23 04/22/23 04/22/23 13:38 14:33 15:36 MCV 79.9 L MCH 25.2 L MCHC 31.6 RDW 16.5 H Plt Count 271 MPV 13.1 H Immature Gran % (Auto) 0.3 Neut % (Auto) 54.2 Lymph % (Auto) 31.5 Boyle % (Auto) 10.5 Eos % (Auto) 2.8 Baso % (Auto) 0.7 Lymph # (Auto) 2.1 Boyle # (Auto) 0.7 Eos # (Auto) 0.2 Baso # (Auto) 0.1 Abs Immat Gran (auto) 0.02 Absolute Neuts (auto) 3.6 Absolute Nucleated RBC 0.000 Nucleated RBC % (auto) 0.0 Smear Tech's Comments VERIFIED PT 12.9 INR 1.1 APTT 36.6 H Anion Gap 19 Estim Creat Clear Calc 55.8 Estimated GFR > 60 POC Glucose 227 H Random Glucose 141 H Calcium 9.8 Total Bilirubin 0.2 Direct Bilirubin < 0.2 AST 37 H ALT 40 H Alkaline Phosphatase 247 H B-Natriuretic Peptide 67 Total Protein 7.8 Albumin 3.7 Lipase 27 Urine Color Yellow Urine Appearance Clear Urine pH 5.5 Ur Specific [place] 1.010 Urine Protein Negative Urine Glucose (UA) 100 H Urine Ketones Negative Urine Blood Negative Urine Nitrite Negative Ur Leukocyte Esterase Trace H Imaging Radiologist's Impressions: Impressions Chest X-Ray 04/22/23 14:52 IMPRESSION: Unremarkable examination. Head CT 04/22/23 15:07 IMPRESSION: There are multiple areas of low attenuation in the left parietal lobe, right thalamus, and brainstem/liana compatible with infarcts, these were seen better visualized on recent prior MRI 04/13/2023 unchanged from most recent CT of 04/13/2023. No intracranial bleed. (Referring physician staff is being called, by physician staff assistance, to be alerted of the above critical findings and recommendations.) Ginette Pearson 04/22/2023 3:23 PM Assessment and Plan (1) Acute CVA (cerebrovascular accident): Status: Acute Plan 62-year-old female with history of duv-eukjvaj-[id number] type 2 diabetes, mild intermittent asthma, diabetic polyneuropathy, diabetic poly retinopathy, dyslipidemia, GERD, history of recurrent CVA with sequela of left-sided hemiparesis and right sided facial droop, and hypertension to be observed for acute CVA #Acute CVA -history recurrent CVA (x4 in 2022) with sequela bilateral hemiparesis and right-sided facial droop. today with worsening right sided weakness, slurred speech, and right sided facial droop -bedside swallow eval. Stroke Education requested -give 300mg asa MI now, continue 81 mg daily. Continue plavid -neuro consult -has severe bilateral cavernous carotid stenosis. [facility] involved for possible stenting -echo 03/01. No thrombus. Repeat echo not needed -PT/OT/CERTIFIED INCOME TAX PREPARER eval -monitor on telemetry # hypertension -blood pressure reasonably controlled -Resume antihypertensives am # ghf-gqufann-vcnzorpvd type 2 diabetes -uncontrolled, last A1c 8.5% -monitor POC -diabetic diet -Humalog on sliding scale, hold oral antihyperglyemics # mild intermittent asthma -no acute exacerbation -albuterol p.r.n. # dyslipidemia -continue statin DVT prophylaxis-Lovenox Full code Patient requires inpatient stay at least 2 midnights for management of acute CVA with persisting deficits requiring PT/OT/CERTIFIED INCOME TAX PREPARER, expert consultation Time Spent With Patient Time: Total time managing care of this patient today ____ minutes. Quality Stroke Does the patient have a stroke diagnosis?: Yes Reason for No Anti-thrombotic by Day Two: Drug treatment not indicated VTE Prior VTE?: No VTE Risk Level:: Medical - moderate - high VTE Device Contraindication: Treatment Not Indicated VTE Drug Contraindication: N/A - Med Ordered
--- NOTE | 2023-04-22 17:26 | PHA.MEDREC ---
Pharmacy Consult ? Medication Reconciliation Pharmacy has completed the medication reconciliation. spoke with patients daughter to confirm medications. She reports that the doctor never refilled senna for the patient and she last took about a month ago. she reports that the patient took her AM meds today.
[2023-04-22 18:43] LABS: Bacteria Urine None Seen (None Seen); Hyaline Casts Urine 0-2 /LPF (0-2); RBC Urine 0-2 /HPF (0-2); Squamous Epithelial Cell Urine 0-2 /HPF (0-2); WBC Urine 0-5 /HPF (0-5)
[2023-04-22 19:13] VITALS: BP 128/56; PULSE 70; RESP 12; O2SAT 94
[2023-04-22 19:22] LABS: Glucose, Whole Blood 90 mg/dL (60-115)
[2023-04-22] MEDS: Enoxaparin Sodium 40 MG/0.4 ML SYRINGE SUBCUT (19:29)
[2023-04-22] MEDS: Aspirin 300 MG SUPP.RECT PR (19:30)
[2023-04-22] MEDS: Acetaminophen 325 MG TABLET 650 MG PO (19:45)
--- NOTE | 2023-04-22 20:29 | PC.NURSE ---
Addendum entered by Kristal Shaw 04/22/23 23:14: provider notified about swallow eval, food and drink given, family at bedside. Original Note: This senior copywriter assumed at 1900, pt AOx2, pt reporting 7/10 constant headache, swallow study completed, pt medicated per MAR, right arm drift noted, facial droop on right side, equal hand maintenance engineer oil field noted. Pt repositioned to right side. Family at bedside. Plan of care ongoing.
[2023-04-22 21:11] LABS: Prothrombin Time Whole Bld POC 13.5 sec (11.1-13.5); ~PT, ~INR - Anti Coag Clinic 1.1 (0.9-1.1)
[2023-04-22 22:08] LABS: Glucose, Whole Blood 82 mg/dL (60-115)
[2023-04-22] MEDS: 0.9 % Sodium Chloride Flush 3 ML SYRINGE IVFLUSH (23:53)
[2023-04-23] VITALS (8 sets, daily range): BP systolic 117–160; BP diastolic 46–70; PULSE 59–72; RESP 15–18; TEMP 36.1–37; O2SAT 95–98; BMI 22.6
--- NOTE | 2023-04-23 00:20 | MHC.EDTECH ---
THIS PCT ASSUMED CARE OF PATIENT AT 2300 ,VITALS TAKEN ,PT BELONGING LIST DONE ,PT SLEEPING AND CLEAN AND RY ,PT CONTINUE TO BE HOOKED UP TO EGG BREAKER ,NO APPARENT DISTRESS AT THIS TIME ,PT DRANK 120 ML JUICE .
--- NOTE | 2023-04-23 01:36 | PC.NURSE ---
Pt appears to be sleeping with unlabored and equal respirations.
[2023-04-23 05:44] LABS: Hemoglobin 11.5 g/dl (12.0-16.0); Mean Corpuscular Volume 78.4 fL (80.0-98.0); SCAN SMEAR FLAG 1
[2023-04-23 05:46] LABS: Basophils Percent Auto 0.5 % (0-2); Eosinophils Absolute Auto 0.2 X10*3/uL (0.0-0.4); Eosinophils Percent Auto 3.4 % (0-4); Hematocrit 37.1 % (37.0-47.0); Imm Gran Abs Auto 0.02 X10*3/uL (0.00-0.03); Imm Gran Pct Auto 0.3 % (0.0-0.4); Lymphocytes Absolute Auto 2.1 X10*3/uL (1.2-4.9); Lymphocytes Percent Auto 33.5 % (20-40); MANUAL DIFF FLAG SCAN; Mean Corpuscular Hemoglobin 24.3 pg (27.0-33.0); Mean Platelet Volume 12.9 fL (9.4-12.3); Monocytes Absolute Auto 0.5 X10*3/uL (0.1-1.2); Monocytes Percent Auto 8.3 % (2-11); Neutrophils Absolute Auto 3.3 x10*3/uL (2.0-8.3); PLT CLUMP 1; Red Blood Count 4.73 X10*6/uL (4.20-5.50); Red Cell Distribution Width 16.5 % (11.0-16.0)
[2023-04-23 06:13] LABS: Anion Gap 17 (12-20); Blood Urea Nitrogen 19 mg/dL (9-16); Calcium 9.5 mg/dL (8.4-10.2); Carbon Dioxide 24 mmol/L (22-29); Chloride 105 mmol/L (96-108); Cholesterol 117 mg/dL (<200); Creatinine Clr Calc Pharmacy 54.4; Estimated Glomerular Filt Rate > 60; Glucose Random 134 mg/dL (60-115); HDL Cholesterol 46 mg/dL (>40); LDL Cholesterol Calculated 52 mg/dL (<100); Potassium 3.8 mmol/L (3.3-5.1); Sodium 142 mmol/L (135-145); Triglycerides 99 mg/dL (<150)
[2023-04-23 06:47] LABS: PLT ABN DIST 1
[2023-04-23 06:48] LABS: Platelet Count 206 X10*3/uL (160-400); White Blood Count 6.2 X10*3/uL (4.8-10.8)
[2023-04-23 06:49] LABS: SLIDE REVIEW VERIFIED
[2023-04-23] MEDS: Simethicone 80 MG TAB.CHEW PO ×3 (08:39→21:08)
[2023-04-23] MEDS: Sertraline HCL 100 MG TABLET 200 MG PO (08:39)
[2023-04-23] MEDS: Cholecalciferol (Vitamin D3) 25 MCG TABLET 50 MCG PO (08:39)
[2023-04-23] MEDS: Clopidogrel Bisulfate 75 MG TABLET PO (08:39)
[2023-04-23] MEDS: Furosemide 20 MG TABLET PO (08:39)
[2023-04-23] MEDS: Multivitamin TABLET 1 TAB PO (08:39)
[2023-04-23] MEDS: Aspirin Enteric Coated 81 MG TABLET.DR PO (08:39)
[2023-04-23] MEDS: 0.9 % Sodium Chloride Flush 3 ML SYRINGE IVFLUSH ×2 (08:40→17:17)
[2023-04-23] MEDS: UrsodioL 300 MG CAPSULE PO ×3 (08:50→21:08)
--- NOTE | 2023-04-23 10:34 | PC.NURSE ---
pt alert to herself, she is at her current baseline. pt reports she knows she is not home. unsure of year/month. pt takes pills by mouth one at a time with sips of water through a straw. pt requiring aspiration precautions when feeding/taking meds. GCS 15.
--- NOTE | 2023-04-23 11:14 | MHC.CM.PN ---
Interview conducted w/daughter; Pt. lives w/, has in-home PT and nursing through [employer], family happy w/care. She also has 7.5 hrs/day of [employer] services. Owns walker and WC, and has 16 steps to get out of/in to home. PCP Dr. Alonso at [address] [place] [address] Daughter to transport to/from MD appts. Family hoping for acute rehab for D/C should PT determine acute rehab level of care is the appropriate recommendation. If acute rehab is recommendation, [facility] is first choice, [facility] is second and [facility] is third. CM to follow.
--- NOTE | 2023-04-23 11:27 | HO.PM.IMPN ---
Subjective Subjective Date of Service: 04/23/23 Interval History: improvement Physical Exam Vital Signs: Vital Signs: Last Vital Signs Temp 98.6 F 04/23/23 00:00 Pulse 71 04/23/23 08:38 Resp 15 04/23/23 08:38 BP 133/46 L 04/23/23 08:38 Pulse Ox 97 04/23/23 08:30 O2 Del Method Room Air 04/23/23 08:30 BMI result Body Mass Index 22.6 right hemiparesis, aphasia Objective Data Active Medications Acetaminophen (Acetaminophen 325 Mg Tablet) 650 mg PO Q6H PRN PRN Reason: Pain, Mild (Pain Scale 1-3) Last Admin: 04/22/23 19:45 Dose: 650 mg Documented By: CRISSY Albuterol Sulfate (Albuterol Sulfate 90 Mcg 8 Gm Inhaler) 1 puff INHALE QID PRN PRN Reason: Shortness Of Breath Or Wheezing Artificial Tears (Artificial Tears 15 Ml Drops) 2 drop EYE-RIGHT Q4H PRN PRN Reason: Dry Eyes Aspirin (Aspirin Enteric Coated 81 Mg Tablet.) 81 mg PO DAILY [facility] Last Admin: 04/23/23 08:39 Dose: 81 mg Documented By: NANI Atorvastatin Calcium (Atorvastatin Calcium 80 Mg Tablet) 80 mg PO BEDTIME [facility], [facility]1983 Clopidogrel Bisulfate (Clopidogrel Bisulfate 75 Mg Tablet) 75 mg PO DAILY [facility] Last Admin: 04/23/23 08:39 Dose: 75 mg Documented By: NANI Dextrose (Dextrose 50 % 25 Gm/50 Ml Syringe) 25 gm IVPUSH Q15M PRN; Protocol PRN Reason: per Hypoglycemia Standing Ord. Docusate Sodium (Docusate Sodium 100 Mg Capsule) 100 mg PO DAILY PRN PRN Reason: Constipation Enoxaparin Sodium (Enoxaparin Sodium 40 Mg/0.4 Ml Syringe) 40 mg SUBCUT Q24H [facility] Last Admin: 04/22/23 19:29 Dose: 40 mg Documented By: CRISSY Furosemide (Furosemide 20 Mg Tablet) 20 mg PO DAILY [facility]; Protocol Last Admin: 04/23/23 08:39 Dose: 20 mg Documented By: NANI Glucose (Glucose Gel 15 Gm Gel..Gram.) 15 gm PO Q15M PRN; Protocol PRN Reason: per Hypoglycemia Standing Ord. Insulin Human Lispro (Insulin Lispro 100 Unit/Ml 3 Ml Vial) 0 unit SUBCUT QIDACHS [facility], [facility]; Protocol Last Admin: 04/23/23 07:27 Dose: Not Given Documented By: NANI Non-Admin Reason: No Insulin Coverage Loratadine (Loratadine 10 Mg Tablet) 10 mg PO BEDTIME [facility] Multivitamins/Vitamin C (Multivitamin Tablet) 1 tab PO DAILY [facility] Last Admin: 04/23/23 08:39 Dose: 1 tab Documented By: NANI Ondansetron HCl (Ondansetron Hcl 4 Mg/2 Ml Vial) 4 mg IVPUSH Q8H PRN PRN Reason: Nausea and Vomiting Polyethylene Glycol (Polyethylene Glycol 3350 17 Gm Powd.Pack) 17 gm PO DAILY PRN PRN Reason: constipation Risperidone (Risperidone 1 Mg Tablet) 1 mg PO BEDTIME [facility] Sertraline HCl (Sertraline Hcl 100 Mg Tablet) 200 mg PO DAILY [facility] Last Admin: 04/23/23 08:39 Dose: 200 mg Documented By: NANI Simethicone (Simethicone 80 Mg Tab.Chew) 80 mg PO TID [facility] Last Admin: 04/23/23 08:39 Dose: 80 mg Documented By: NANI Sodium Chloride (0.9 % Sodium Chloride Flush 3 Ml Syringe) 3 ml IVFLUSH QSHIFT [facility] Last Admin: 04/23/23 08:40 Dose: 3 ml Documented By: NAIN Ursodiol (Ursodiol 300 Mg Capsule) 300 mg PO TID [facility] Last Admin: 04/23/23 08:50 Dose: 300 mg Documented By: NANI Vitamin D (Cholecalciferol (Vitamin D3) 25 Mcg Tablet) 50 mcg PO DAILY [facility] Last Admin: 04/23/23 08:39 Dose: 50 mcg Documented By: NANI Labs 04/23/23 05:17 04/23/23 05:17 Labs: Laboratory Results - last 24 hr 04/22/23 04/22/23 04/22/23 13:38 13:41 14:33 MCV MCH MCHC RDW Plt Count MPV Immature Gran % (Auto) Neut % (Auto) Lymph % (Auto) [place] % (Auto) Eos % (Auto) Baso % (Auto) Lymph # (Auto) [place] # (Auto) Eos # (Auto) Baso # (Auto) Abs Immat Gran (auto) Absolute Neuts (auto) Absolute Nucleated RBC Nucleated RBC % (auto) Smear Tech's Comments PT Whole Blood PT 13.5 INR Whole Blood INR 1.1 APTT Anion Gap Estim Creat Clear Calc Estimated GFR POC Glucose 227 H Random Glucose Calcium Total Bilirubin Direct Bilirubin AST ALT Alkaline Phosphatase B-Natriuretic Peptide Total Protein Albumin Triglycerides Cholesterol LDL Cholesterol, Calc HDL Cholesterol Lipase Urine Color Yellow Urine Appearance Clear Urine pH 5.5 Ur Specific [place] 1.010 Urine Protein Negative Urine Glucose (UA) 100 H Urine Ketones Negative Urine Blood Negative Urine Nitrite Negative Ur Leukocyte Esterase Trace H Urine RBC 0-2 Urine WBC 0-5 Ur Squamous Epith Cells 0-2 Urine Bacteria None Seen Hyaline Casts 0-2 04/22/23 04/22/23 04/22/23 15:36 19:19 22:04 MCV 79.9 L MCH 25.2 L MCHC 31.6 RDW 16.5 H Plt Count 271 MPV 13.1 H Immature Gran % (Auto) 0.3 Neut % (Auto) 54.2 Lymph % (Auto) 31.5 [place] % (Auto) 10.5 Eos % (Auto) 2.8 Baso % (Auto) 0.7 Lymph # (Auto) 2.1 [place] # (Auto) 0.7 Eos # (Auto) 0.2 Baso # (Auto) 0.1 Abs Immat Gran (auto) 0.02 Absolute Neuts (auto) 3.6 Absolute Nucleated RBC 0.000 Nucleated RBC % (auto) 0.0 Smear Tech's Comments VERIFIED PT 12.9 Whole Blood PT INR 1.1 Whole Blood INR APTT 36.6 H Anion Gap 19 Estim Creat Clear Calc 55.8 Estimated GFR > 60 POC Glucose 90 82 Random Glucose 141 H Calcium 9.8 Total Bilirubin 0.2 Direct Bilirubin < 0.2 AST 37 H ALT 40 H Alkaline Phosphatase 247 H B-Natriuretic Peptide 67 Total Protein 7.8 Albumin 3.7 Triglycerides Cholesterol LDL Cholesterol, Calc HDL Cholesterol Lipase 27 Urine Color Urine Appearance Urine pH Ur Specific [place] Urine Protein Urine Glucose (UA) Urine Ketones Urine Blood Urine Nitrite Ur Leukocyte Esterase Urine RBC Urine WBC Ur Squamous Epith Cells Urine Bacteria Hyaline Casts 04/23/23 05:17 MCV 78.4 L MCH 24.3 L MCHC 31.0 RDW 16.5 H Plt Count 206 MPV 12.9 H Immature Gran % (Auto) 0.3 Neut % (Auto) 54.0 Lymph % (Auto) 33.5 [place] % (Auto) 8.3 Eos % (Auto) 3.4 Baso % (Auto) 0.5 Lymph # (Auto) 2.1 [place] # (Auto) 0.5 Eos # (Auto) 0.2 Baso # (Auto) 0.0 Abs Immat Gran (auto) 0.02 Absolute Neuts (auto) 3.3 Absolute Nucleated RBC 0.000 Nucleated RBC % (auto) 0.0 Smear Tech's Comments VERIFIED PT Whole Blood PT INR Whole Blood INR APTT Anion Gap 17 Estim Creat Clear Calc 54.4 Estimated GFR > 60 POC Glucose Random Glucose 134 H Calcium 9.5 Total Bilirubin Direct Bilirubin AST ALT Alkaline Phosphatase B-Natriuretic Peptide Total Protein Albumin Triglycerides 99 Cholesterol 117 LDL Cholesterol, Calc 52 HDL Cholesterol 46 Lipase Urine Color Urine Appearance Urine pH Ur Specific [place] Urine Protein Urine Glucose (UA) Urine Ketones Urine Blood Urine Nitrite Ur Leukocyte Esterase Urine RBC Urine WBC Ur Squamous Epith Cells Urine Bacteria Hyaline Casts Assessment and Plan (1) Acute CVA (cerebrovascular accident): Status: Acute Plan 62F PMH diabetes, mild intermittent asthma, diabetic polyneuropathy, hyperlipidemia, GERD, recurrent CVAs presented with right hemiparesis and slurred speech Acute recurrent CVA Continue dual antiplatelet statin Neuro eval, 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 Quality Stroke Does the patient have a stroke diagnosis?: Yes Reason for No Anti-thrombotic by Day Two: Drug treatment not indicated VTE Prior VTE?: No VTE Risk Level:: Medical - moderate - high VTE Device Contraindication: Treatment Not Indicated VTE Drug Contraindication: N/A - Med Ordered
--- NOTE | 2023-04-23 11:28 | MHC.CM.PN ---
Referrals sent to all 3 acute rehabs per family request. CM to follow.
[2023-04-23 13:29] LABS: Glucose, Whole Blood 197 mg/dL (60-115)
[2023-04-23] MEDS: Insulin Lispro 100 UNIT/ML 3 ML VIAL SUBCUT ×3 (13:36→21:08)
[2023-04-23 16:58] LABS: Glucose, Whole Blood 311 mg/dL (60-115)
[2023-04-23] MEDS: Enoxaparin Sodium 40 MG/0.4 ML SYRINGE SUBCUT (17:17)
[2023-04-23] MEDS: Acetaminophen 325 MG TABLET 650 MG PO (17:23)
[2023-04-23 20:38] LABS: Glucose, Whole Blood 192 mg/dL (60-115)
[2023-04-23] MEDS: Atorvastatin Calcium 80 MG TABLET PO (21:08)
[2023-04-23] MEDS: risperiDONE 1 MG TABLET PO (21:08)
[2023-04-23] MEDS: traMADoL HCL 50 MG TABLET PO (21:08)
[2023-04-23] MEDS: Loratadine 10 MG TABLET PO (21:08)
[2023-04-24] VITALS (7 sets, daily range): BP systolic 114–144; BP diastolic 55–89; PULSE 59–89; RESP 16–20; TEMP 36.2–37.1; O2SAT 92–97
[2023-04-24 07:09] LABS: Glucose, Whole Blood 155 mg/dL (60-115)
[2023-04-24] MEDS: Aspirin Enteric Coated 81 MG TABLET.DR PO (08:25)
[2023-04-24] MEDS: Clopidogrel Bisulfate 75 MG TABLET PO (08:25)
[2023-04-24] MEDS: UrsodioL 300 MG CAPSULE PO ×3 (08:25→20:16)
[2023-04-24] MEDS: Multivitamin TABLET 1 TAB PO (08:25)
[2023-04-24] MEDS: Furosemide 20 MG TABLET PO (08:25)
[2023-04-24] MEDS: Sertraline HCL 100 MG TABLET 200 MG PO (08:26)
[2023-04-24] MEDS: Simethicone 80 MG TAB.CHEW PO ×3 (08:26→20:15)
[2023-04-24] MEDS: Cholecalciferol (Vitamin D3) 25 MCG TABLET 50 MCG PO (08:26)
[2023-04-24] MEDS: Insulin Lispro 100 UNIT/ML 3 ML VIAL SUBCUT ×4 (08:27→20:39)
[2023-04-24] MEDS: 0.9 % Sodium Chloride Flush 3 ML SYRINGE IVFLUSH ×3 (08:27→17:29)
--- NOTE | 2023-04-24 09:48 | HO.PM.IMPN ---
Subjective Subjective Date of Service: 04/24/23 Interval History: no changes Physical Exam Vital Signs: Vital Signs: Last Vital Signs Temp 98.0 F 04/24/23 07:46 Pulse 69 04/24/23 07:46 Resp 20 04/24/23 07:46 BP 117/59 L 04/24/23 07:46 Pulse Ox 95 04/24/23 07:46 O2 Del Method Room Air 04/24/23 07:46 BMI result Body Mass Index 22.6 right hemiparesis, aphasia Objective Data Active Medications Acetaminophen (Acetaminophen 325 Mg Tablet) 650 mg PO Q6H PRN PRN Reason: Pain, Mild (Pain Scale 1-3) Last Admin: 04/23/23 17:23 Dose: 650 mg Documented By: WM Albuterol Sulfate (Albuterol Sulfate 90 Mcg 8 Gm Inhaler) 1 puff INHALE QID PRN PRN Reason: Shortness Of Breath Or Wheezing Artificial Tears (Artificial Tears 15 Ml Drops) 2 drop EYE-RIGHT Q4H PRN PRN Reason: Dry Eyes Aspirin (Aspirin Enteric Coated 81 Mg Tablet.) 81 mg PO DAILY [facility], [facility] Last Admin: 04/24/23 08:25 Dose: 81 mg Documented By: LIVE Atorvastatin Calcium (Atorvastatin Calcium 80 Mg Tablet) 80 mg PO BEDTIME [facility]1983 Last Admin: 04/23/23 21:08 Dose: 80 mg Documented By: RAI Clopidogrel Bisulfate (Clopidogrel Bisulfate 75 Mg Tablet) 75 mg PO DAILY [facility]1983 Last Admin: 04/24/23 08:25 Dose: 75 mg Documented By: LIVE Dextrose (Dextrose 50 % 25 Gm/50 Ml Syringe) 25 gm IVPUSH Q15M PRN; Protocol PRN Reason: per Hypoglycemia Standing Ord. Docusate Sodium (Docusate Sodium 100 Mg Capsule) 100 mg PO DAILY PRN PRN Reason: Constipation Enoxaparin Sodium (Enoxaparin Sodium 40 Mg/0.4 Ml Syringe) 40 mg SUBCUT Q24H [facility]1983 Last Admin: 04/23/23 17:17 Dose: 40 mg Documented By: WM Furosemide (Furosemide 20 Mg Tablet) 20 mg PO DAILY [facility], [facility]; Protocol Last Admin: 04/24/23 08:25 Dose: 20 mg Documented By: LIVE Glucose (Glucose Gel 15 Gm Gel..Gram.) 15 gm PO Q15M PRN; Protocol PRN Reason: per Hypoglycemia Standing Ord. Insulin Human Lispro (Insulin Lispro 100 Unit/Ml 3 Ml Vial) 0 unit SUBCUT QIDACHS [facility], 1928–1983; Protocol Last Admin: 04/24/23 08:27 Dose: 2 unit Documented By: LIVE Loratadine (Loratadine 10 Mg Tablet) 10 mg PO BEDTIME [facility]1983 Last Admin: 04/23/23 21:08 Dose: 10 mg Documented By: RAI Multivitamins/Vitamin C (Multivitamin Tablet) 1 tab PO DAILY [facility] Last Admin: 04/24/23 08:25 Dose: 1 tab Documented By: LIVE Ondansetron HCl (Ondansetron Hcl 4 Mg/2 Ml Vial) 4 mg IVPUSH Q8H PRN PRN Reason: Nausea and Vomiting Polyethylene Glycol (Polyethylene Glycol 3350 17 Gm Powd.Pack) 17 gm PO DAILY PRN PRN Reason: constipation Risperidone (Risperidone 1 Mg Tablet) 1 mg PO BEDTIME [facility]1983 Last Admin: 04/23/23 21:08 Dose: 1 mg Documented By: RAI Sertraline HCl (Sertraline Hcl 100 Mg Tablet) 200 mg PO DAILY [facility] Last Admin: 04/24/23 08:26 Dose: 200 mg Documented By: LIVE Simethicone (Simethicone 80 Mg Tab.Chew) 80 mg PO TID [facility]1983 Last Admin: 04/24/23 08:26 Dose: 80 mg Documented By: LIVE Sodium Chloride (0.9 % Sodium Chloride Flush 3 Ml Syringe) 3 ml IVFLUSH QSHIFT [facility] Last Admin: 04/24/23 08:27 Dose: 3 ml Documented By: LIVE Ursodiol (Ursodiol 300 Mg Capsule) 300 mg PO TID [facility]1983 Last Admin: 04/24/23 08:25 Dose: 300 mg Documented By: LIVE Vitamin D (Cholecalciferol (Vitamin D3) 25 Mcg Tablet) 50 mcg PO DAILY [facility] Last Admin: 04/24/23 08:26 Dose: 50 mcg Documented By: LIVE Labs 04/23/23 05:17 04/23/23 05:17 Labs: Laboratory Results - last 24 hr 04/23/23 04/23/23 04/23/23 13:24 16:41 20:33 POC Glucose 197 H 311 H 192 H 04/24/23 07:05 POC Glucose 155 H Assessment and Plan (1) Acute CVA (cerebrovascular accident): Status: Acute Plan 62F PMH diabetes, mild intermittent asthma, diabetic polyneuropathy, hyperlipidemia, GERD, recurrent CVAs presented with right hemiparesis and slurred speech Acute recurrent CVA Continue dual antiplatelet statin 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 Quality Stroke Does the patient have a stroke diagnosis?: Yes Reason for No Anti-thrombotic by Day Two: Drug treatment not indicated VTE Prior VTE?: No VTE Risk Level:: Medical - moderate - high VTE Device Contraindication: Treatment Not Indicated VTE Drug Contraindication: N/A - Med Ordered
--- NOTE | 2023-04-24 10:28 | PM.NEUROCN ---
History of Present Illness Data of Consult Service Date: 04/24/23 Primary Care Provider: [facility] Reason for consult: Stroke 62-year-old female with significant pontine bilateral chronic ischemic infarctions, a chronic right medial thalamic ischemic infarction, and then embolic looking small left frontal cerebral ischemic infarction, associated with findings of bilateral intracranial carotid stenosis, and right vertebral stenosis at origin with intact intracranial vertebral basilar system who came to the ED earlier today via EMS due to increasing facial droop, slurred speech, and worsening right-sided weakness. Her daughter stated that she could not speak. Daughter also stated that she was not confused. Now she was back to baseline. Review of Systems Review of Systems: No recent cold or flu-like illness or trauma or seizure-like episode [facility] Past Medical History Medical History History of CVA (cerebrovascular accident) Dysphagia Hypertension Hypertensive urgency Cervical osteoarthritis Osteoarthritis of right glenohumeral joint Shoulder pain, right BOB positive CVA (cerebral vascular accident) HTN (hypertension) Primary biliary cholangitis Fatty liver disease, nonalcoholic History of umbilical hernia Postural hypotension Sjogrens syndrome GERD (gastroesophageal reflux disease) History of sleep apnea Asthma Subclinical hypothyroidism Hypertension Dyslipidemia Diabetic retinopathy associated with type 2 diabetes mellitus Diabetic polyneuropathy associated with type 2 diabetes mellitus Hypoglycemia after GI (gastrointestinal) surgery Diabetes type 2, uncontrolled Family History Family History Father [place] (myocardial infarction) Diabetes mellitus Mother Diabetes mellitus CVA (cerebral vascular accident) Maternal Grandmother Stomach cancer Sister Hemorrhagic cerebrovascular accident (CVA) Surgical History Surgical History Hx of dilation and curettage Hx of tonsillectomy History of laparoscopic appendectomy History of carpal tunnel release Hx of colonoscopy History of esophagogastroduodenoscopy (EGD) History of partial hysterectomy Hx of section Hx of gastric bypass Social History Social History Household Members: Significant Other Housing: House Are you a primary day care director to a significant other at home: No Do you presently have visiting nurse or other home services: Yes Alcohol intake: never Patient Tobacco Use Status: Never used Tobacco e-Cigarette/Vaping Use: Never Used Second Hand Smoke Exposure: No Advance Directives Date on File: 03/07/23 service: No Current occupational status: disabled Cognitive needs: Yes (wheelchait) Hearing needs: No Vision needs: No Meds Allergies Allergy/AdvReac Type Severity Reaction Status Date / Time Latex, Natural Rubber Allergy Intermediate Rash Verified 04/20/23 11:39 Sulfa (Sulfonamide AdvReac Intermediate Stomach Verified 04/20/23 11:39 Antibiotics) Upset [SULFA (SULFONAMIDE ANTIBIOTICS)] Morphine Sulfate AdvReac Intermediate Abdominal Uncoded 04/20/23 11:39 Pain Active Medications: Current Medications Acetaminophen (Acetaminophen 325 Mg Tablet) 650 mg PO Q6H PRN PRN Reason: Pain, Mild (Pain Scale 1-3) Last Admin: 04/23/23 17:23 Dose: 650 mg Albuterol Sulfate (Albuterol Sulfate 90 Mcg 8 Gm Inhaler) 1 puff INHALE QID PRN PRN Reason: Shortness Of Breath Or Wheezing Artificial Tears (Artificial Tears 15 Ml Drops) 2 drop EYE-RIGHT Q4H PRN PRN Reason: Dry Eyes Aspirin (Aspirin Enteric Coated 81 Mg Tablet.Dr) 81 mg PO DAILY [facility] Last Admin: 04/24/23 08:25 Dose: 81 mg Atorvastatin Calcium (Atorvastatin Calcium 80 Mg Tablet) 80 mg PO BEDTIME [facility] Last Admin: 04/23/23 21:08 Dose: 80 mg Clopidogrel Bisulfate (Clopidogrel Bisulfate 75 Mg Tablet) 75 mg PO DAILY [facility] Last Admin: 04/24/23 08:25 Dose: 75 mg Dextrose (Dextrose 50 % 25 Gm/50 Ml Syringe) 25 gm IVPUSH Q15M PRN; Protocol PRN Reason: per Hypoglycemia Standing Ord. Docusate Sodium (Docusate Sodium 100 Mg Capsule) 100 mg PO DAILY PRN PRN Reason: Constipation Enoxaparin Sodium (Enoxaparin Sodium 40 Mg/0.4 Ml Syringe) 40 mg SUBCUT Q24H [facility] Last Admin: 04/23/23 17:17 Dose: 40 mg Furosemide (Furosemide 20 Mg Tablet) 20 mg PO DAILY [facility]; Protocol Last Admin: 04/24/23 08:25 Dose: 20 mg Glucose (Glucose Gel 15 Gm Gel..Gram.) 15 gm PO Q15M PRN; Protocol PRN Reason: per Hypoglycemia Standing Ord. Insulin Human Lispro (Insulin Lispro 100 Unit/Ml 3 Ml Vial) 0 unit SUBCUT QIDACHS [facility]; Protocol Last Admin: 04/24/23 08:27 Dose: 2 unit Loratadine (Loratadine 10 Mg Tablet) 10 mg PO BEDTIME [facility] Last Admin: 04/23/23 21:08 Dose: 10 mg Multivitamins/Vitamin C (Multivitamin Tablet) 1 tab PO DAILY [facility] Last Admin: 04/24/23 08:25 Dose: 1 tab Ondansetron HCl (Ondansetron Hcl 4 Mg/2 Ml Vial) 4 mg IVPUSH Q8H PRN PRN Reason: Nausea and Vomiting Polyethylene Glycol (Polyethylene Glycol 3350 17 Gm Powd.Pack) 17 gm PO DAILY PRN PRN Reason: constipation Risperidone (Risperidone 1 Mg Tablet) 1 mg PO BEDTIME [facility] Last Admin: 04/23/23 21:08 Dose: 1 mg Sertraline HCl (Sertraline Hcl 100 Mg Tablet) 200 mg PO DAILY [facility] Last Admin: 04/24/23 08:26 Dose: 200 mg Simethicone (Simethicone 80 Mg Tab.Chew) 80 mg PO TID [facility] Last Admin: 04/24/23 08:26 Dose: 80 mg Sodium Chloride (0.9 % Sodium Chloride Flush 3 Ml Syringe) 3 ml IVFLUSH QSHIFT [facility] Last Admin: 04/24/23 08:27 Dose: 3 ml Ursodiol (Ursodiol 300 Mg Capsule) 300 mg PO TID [facility] Last Admin: 04/24/23 08:25 Dose: 300 mg Vitamin D (Cholecalciferol (Vitamin D3) 25 Mcg Tablet) 50 mcg PO DAILY [facility] Last Admin: 04/24/23 08:26 Dose: 50 mcg Home Medications Medication Instructions Recorded Confirmed Last Taken Type albuterol sulfate 90 mcg/actuation 1 inh inhalation QID PRN Shortness 04/28/20 04/22/23 03/06/23 History aerosol inhaler Of Breath Or Wheezing polyethylene glycol 3350 17 gram 17 g PO DAILY PRN constipation 10/25/22 04/22/23 10/25/22 History oral powder packet (Purelax) metformin 500 mg tablet 500 mg PO BID 01/19/23 04/22/23 03/06/23 History peg 272-[id number] 1 2 drp ophthalmic-Right Q4H PRN Dry 04/22/23 04/22/23 Unknown History %-0.2 %-0.2 % eye drops Eyes (Artificial Tears ([id number])) Physical Exam Vital Signs: Vital Signs: Last Vital Signs Temp 98.0 F 04/24/23 07:46 Pulse 69 04/24/23 07:46 Resp 20 04/24/23 07:46 BP 117/59 L 04/24/23 07:46 Pulse Ox 95 04/24/23 07:46 O2 Del Method Room Air 04/24/23 07:46 BMI result Body Mass Index 22.6 Neuro: Other: She is alert and awake slow to speak but is able to converse answer questions and follow commands. There is no gaze deviation. Visual carrillo are full. Moderate right-sided peripheral type facial weakness is noted. Mild left hemiparesis is noted. There is no dysarthria Results Labs 04/23/23 05:17 04/23/23 05:17 Labs: Head CT did not reveal any obvious acute lesion. Assessment and Plan (1) Acute CVA (cerebrovascular accident): Status: Acute 62 years old woman with bilateral intracranial carotid stenosis and right extracranial vertebral artery stenosis and intact intracranial vertebral basilar system is known to have multiple bilateral ischemic infarctions but most of them in vertebral basilar territory suggesting that the most symptomatic lesion was either vertebral or she had an alternate cause of embolism such as cardiac. With that, she also had left middle cerebral artery lesion, which could be explained based upon intracranial carotid disease. She is not known to have any significant cardiac lesion such as atrial fibrillation or very low ejection fraction, which could explain multiple embolisms. She has failed dual anti-platelet therapy and my recommendation is to start her on anticoagulation with a baby aspirin daily or [id number]. One could consider stenting of right vertebral lesion but she would still be left with intracranial internal carotid artery lesions. Also that type of treatment is not available here and usually considered if all medical therapy fails. I would consider that if she would fail anticoagulation with small dose of aspirin. Time Spent With Patient Time: Total time managing care of this patient today ____ minutes. Procedures Date of Service Date of Service: 04/24/23
--- NOTE | 2023-04-24 10:33 | MHC.STROKE ---
Addendum entered by Audra Andino RN 04/25/23 11:11: I DISCUSSED THE PLAN OF CARE WITH DR. BARRETT, HE IS RECOMMENDING MEDICAL MANAGEMENT WITH ANTICOAGULATION AND ASPIRIN *SEE HIS NOTE. IF MEDICAL MANAGEMENT FAILS THEN REFERRAL TO [facility] CAN BE CONSIDERED. I EXPLAINED THIS TO THE DAUGHTER, PATIENT AND DR BLEVINS. I ANSWERED ALL THEIR QUESTIONS. I REVIEWED THE MRI RESULTS WITH THE TEAM AND PATIENT/FAMILY. THE FILMS HAVE BEEN SENT THROUGH [facility] TO [facility] IF NEEDED. DR. PARKER FROM [facility] HAS ALL THE INFORMATION FROM HER LAST ADMISSION. I PROVIDED SUPPORT AND ENCOURAGEMENT REGARDING NEXT LEVEL OF ALF VERSES SNF ?ACUTE REHAB. THE FAMILY UNDERSTANDS. I WILL CONTINUE TO FOLLOW. Original Note: ROUNDED WITH DR BARRETT TODAY, WE DISCUSSED HER CASE AND MULTIPLE ADMISSIONS FOR STROKE. I HAD RADIOGY RE-SEND IMAGES VIA [facility] TO [facility]. DR BARRETT WILL REVIEW SCANS AGAIN AND DETERMINE IF SHE IS AN OUTPATIENT CANDIDATE FOR STENTING AT [facility] BY DR PARKER. IT IS UNCERTAIN IF THE FAMILY WILL BE ABLE TO FOLLOW UP AT [facility]. I DID MEET WITH THE PATIENT AND FAMILY PROVIDE STROKE EDUCATION. THEY ARE REQUESTING REHAB.
--- NOTE | 2023-04-24 11:07 | MHC.CM.PN ---
Addendum entered by Hailey Delong RN 04/24/23 14:54: Update - no current bed offers. Facilities feel patient may not be appropriate for acute rehab. Plan to see PT again tomorrow, will reevaluate at that time. This CM updated family. Family declines STR referrals and prefers to take patient home to resume VNA services, if not accepted to [facility]. CM will continue to follow. Original Note: EMR reviewed. Per MD rounds pt not medically cleared for DC at this time. PT eval today, recommending acute rehab, [facility] are following. Plan for MRI today. CM will continue to follow.
[2023-04-24 11:08] LABS: Glucose, Whole Blood 376 mg/dL (60-115)
--- NOTE | 2023-04-24 12:06 | MHC.SL.SWA ---
Speech Pathologist Impression: Risk of aspiration, oropharyngeal dysphagia Risk of Aspiration Due to: Neurological Condition Dysphasia Diet Status: Downgrade solids to NDD3 for ease of mastication Liquid Consistency and Strategies for Safe Swallow: Liquid Intake Recommendation: Thin Liquid Intake Strategies: Small Sips No Straws Solid Food Consistency: Dietary Recommendations: Chopped/Advanced (NDD3) Additional Modifications to Solid Foods: Pt has been seen by [facility]CEL[facility] ENAMELER during prior hospitalizations, was recommended chopped solids w/ thickened liquids in the past. Pt's daughter reports that pt refuses to drink thickened liquids at home and has all her food cut up for her. Pt was seen for bedside dysphagia evaluation this morning. She presented w/ mild oropharyngeal dysphagia, characterized by some anterior bolus loss on liquids, prolonged mastication, mild oral residuals, mildly delayed swallow. Recommend DOWNGRADE to CHOPPED/ADVANCED (NDD3) solids, continue on THIN liquids via TEASPOON or INDIVIDUAL SIPS BY CONTROLLED CUP (*no straws), pills CRUSHED in PUREE. Pt attempts to feed herself, but will need hand over hand guidance at times, assistance w/ opening of containers and tray set up. Pt to have total 1:1 supervision w/ close monitoring and strict aspiration precautions. Diet order updated by [facility] ENAMEL[facility]. Notified team (MD, RN, RD) via [employer] Message. [facility] ENAMELER will continue to follow. Oral Medication Intake: Crushed with Puree Please contact the pharmacy regarding appropriate crushable or liquid drug formulations that are available whenever modified delivery is recommended. Compensatory Strategies and Precautions to be Taken for Safe Swallow: Sitting Upright (90 deg) Double Swallow No Straw Liquids from Cup Liquids from Spoon Small Bites and Sips Alternate Liquids/Solids Rate of Ingestion Change Oral Check Avoid Specific Foods Supervision While Eating and Drinking for Safe Swallow: Total Assistance (1:1) Foods to Avoid: Hard tough to chew solids; dry, crunchy, or sticky foods; mixed textures Swallowing Recommended Treatments: Compens. Strategy Educat. Recommendation for Speech: Inpatient Speech Therapy Network Programmer Clinican/Clinical Fellow: No Supervisory Statement: I have reviewed and agree with the student/clinical fellow's documentation: N/A Speech Language Pathologist: Norma Velazquez M.A., CCC-[facility] ENAMELER
[2023-04-24 16:15] LABS: Glucose, Whole Blood 241 mg/dL (60-115)
[2023-04-24] MEDS: Enoxaparin Sodium 40 MG/0.4 ML SYRINGE SUBCUT (17:29)
[2023-04-24] MEDS: Loratadine 10 MG TABLET PO (20:15)
[2023-04-24] MEDS: Atorvastatin Calcium 80 MG TABLET PO (20:15)
[2023-04-24] MEDS: risperiDONE 1 MG TABLET PO (20:15)
[2023-04-24] MEDS: Acetaminophen 325 MG TABLET 650 MG PO (20:33)
[2023-04-24 20:41] LABS: Glucose, Whole Blood 167 mg/dL (60-115)
[2023-04-25] MEDS: 0.9 % Sodium Chloride Flush 3 ML SYRINGE IVFLUSH ×2 (02:05→08:56)
[2023-04-25 03:25] VITALS: BP 148/65; PULSE 58; RESP 18; TEMP 36.8; O2SAT 95
[2023-04-25 07:18] VITALS: BP 108/56; PULSE 56; RESP 20; TEMP 36.3; O2SAT 97
[2023-04-25 07:41] LABS: Glucose, Whole Blood 166 mg/dL (60-115)
[2023-04-25] MEDS: Cholecalciferol (Vitamin D3) 25 MCG TABLET 50 MCG PO (08:55)
[2023-04-25] MEDS: Sertraline HCL 100 MG TABLET 200 MG PO (08:55)
[2023-04-25] MEDS: Aspirin Enteric Coated 81 MG TABLET.DR PO (08:55)
[2023-04-25] MEDS: Insulin Lispro 100 UNIT/ML 3 ML VIAL SUBCUT ×2 (08:56→12:17)
[2023-04-25] MEDS: Clopidogrel Bisulfate 75 MG TABLET PO (08:56)
[2023-04-25] MEDS: UrsodioL 300 MG CAPSULE PO (08:56)
[2023-04-25] MEDS: Multivitamin TABLET 1 TAB PO (08:56)
[2023-04-25] MEDS: Furosemide 20 MG TABLET PO (08:56)
[2023-04-25] MEDS: Simethicone 80 MG TAB.CHEW PO (08:56)
[2023-04-25 10:15] VITALS: BP 108/56; PULSE 56; O2SAT 97
--- NOTE | 2023-04-25 10:21 | MHC.SL.SWA ---
Speech Pathologist Impression: Risk of aspiration, oral phase dysphagia Risk of Aspiration Due to: Neurological Condition Dysphasia Diet Status: CUTTER OPERATOR ASBESTOS SHINGLE continues to recommend NDD3 Liquid Consistency and Strategies for Safe Swallow: Liquid Intake Recommendation: Thin Liquid Intake Strategies: Small Sips No Straws Solid Food Consistency: Dietary Recommendations: Chopped/Advanced (NDD3) Additional Modifications to Solid Foods: Pt has been seen by CUTTER OPERATOR ASBESTOS SHINGLE during prior hospitalizations, was recommended chopped solids w/ thickened liquids in the past. Pt's daughter reports that pt refuses to drink thickened liquids at home and has all her food cut up for her. Pt was seen for bedside dysphagia evaluation 04/24. She presented w/ mild oropharyngeal dysphagia, characterized by some anterior bolus loss on liquids, prolonged mastication, mild oral residuals, mildly delayed swallow. Recommend CHOPPED/ADVANCED (NDD3) solids and THIN liquids via TEASPOON or INDIVIDUAL SIPS BY CONTROLLED CUP (*no straws), pills CRUSHED in PUREE. Pt attempts to feed herself, but will need hand over hand guidance at times, assistance w/ opening of containers and tray set up. Pt to have total 1:1 supervision w/ close monitoring and strict aspiration precautions. Oral Medication Intake: Crushed with Puree Please contact the pharmacy regarding appropriate crushable or liquid drug formulations that are available whenever modified delivery is recommended. Compensatory Strategies and Precautions to be Taken for Safe Swallow: Sitting Upright (90 deg) Double Swallow No Straw Small Bites and Sips Alternate Liquids/Solids Rate of Ingestion Change Oral Check Avoid Specific Foods Supervision While Eating and Drinking for Safe Swallow: Total Supervision (1:1) Foods to Avoid: Hard tough to chew solids; dry, crunchy, or sticky foods; mixed textures Swallowing Recommended Treatments: Compens. Strategy Educat. Recommendation for Speech: Inpatient Speech Therapy 1-2 f/u Chemical Processing Technician Clinican/Clinical Fellow: No Supervisory Statement: I have reviewed and agree with the student/clinical fellow's documentation: N/A Speech Language Pathologist: Norma Velazquez M.A., CCC-CUTTER OPERATOR ASBESTOS SHINGLE
--- NOTE | 2023-04-25 10:35 | P.PNIM_ITS ---
Subjective Subjective Date of Service: 04/25/23 Interval History: no changes Physical Exam 2 Vital Signs: Vital Signs: Last Vital Signs Temp 97.4 F 04/25/23 07:18 Pulse 56 04/25/23 10:15 Resp 20 04/25/23 07:18 BP 108/56 L 04/25/23 10:15 Pulse Ox 97 04/25/23 10:15 O2 Del Method Room Air 04/25/23 07:18 BMI result Body Mass Index 22.6 Neuro: Other: She is alert and awake slow to speak but is able to converse answer questions and follow commands. There is no gaze deviation. Visual carrillo are full. Moderate right-sided peripheral type facial weakness is noted. Mild left hemiparesis is noted. There is no dysarthria Objective Data Active Medications Acetaminophen (Acetaminophen 325 Mg Tablet) 650 mg PO Q6H PRN PRN Reason: Pain, Mild (Pain Scale 1-3) Last Admin: 04/24/23 20:33 Dose: 650 mg Documented By: MICHAEL Albuterol Sulfate (Albuterol Sulfate 90 Mcg 8 Gm Inhaler) 1 puff INHALE QID PRN PRN Reason: Shortness Of Breath Or Wheezing Artificial Tears (Artificial Tears 15 Ml Drops) 2 drop EYE-RIGHT Q4H PRN PRN Reason: Dry Eyes Aspirin (Aspirin Enteric Coated 81 Mg Tablet.) 81 mg PO DAILY [facility] Last Admin: 04/25/23 08:55 Dose: 81 mg Documented By: LIVE Atorvastatin Calcium (Atorvastatin Calcium 80 Mg Tablet) 80 mg PO BEDTIME [facility] Last Admin: 04/24/23 20:15 Dose: 80 mg Documented By: MICHAEL Clopidogrel Bisulfate (Clopidogrel Bisulfate 75 Mg Tablet) 75 mg PO DAILY [facility] Last Admin: 04/25/23 08:56 Dose: 75 mg Documented By: LIVE Dextrose (Dextrose 50 % 25 Gm/50 Ml Syringe) 25 gm IVPUSH Q15M PRN; Protocol PRN Reason: per Hypoglycemia Standing Ord. Docusate Sodium (Docusate Sodium 100 Mg Capsule) 100 mg PO DAILY PRN PRN Reason: Constipation Enoxaparin Sodium (Enoxaparin Sodium 40 Mg/0.4 Ml Syringe) 40 mg SUBCUT Q24H [facility] Last Admin: 04/24/23 17:29 Dose: 40 mg Documented By: LIVE Furosemide (Furosemide 20 Mg Tablet) 20 mg PO DAILY [facility]; Protocol Last Admin: 04/25/23 08:56 Dose: 20 mg Documented By: LIVE Glucose (Glucose Gel 15 Gm Gel..Gram.) 15 gm PO Q15M PRN; Protocol PRN Reason: per Hypoglycemia Standing Ord. Insulin Human Lispro (Insulin Lispro 100 Unit/Ml 3 Ml Vial) 0 unit SUBCUT QIDACHS [facility]; Protocol Last Admin: 04/25/23 08:56 Dose: 2 unit Documented By: LIVE Loratadine (Loratadine 10 Mg Tablet) 10 mg PO BEDTIME [facility] Last Admin: 04/24/23 20:15 Dose: 10 mg Documented By: MICHAEL Multivitamins/Vitamin C (Multivitamin Tablet) 1 tab PO DAILY [facility] Last Admin: 04/25/23 08:56 Dose: 1 tab Documented By: LIVE Ondansetron HCl (Ondansetron Hcl 4 Mg/2 Ml Vial) 4 mg IVPUSH Q8H PRN PRN Reason: Nausea and Vomiting Polyethylene Glycol (Polyethylene Glycol 3350 17 Gm Powd.Pack) 17 gm PO DAILY PRN PRN Reason: constipation Risperidone (Risperidone 1 Mg Tablet) 1 mg PO BEDTIME [facility] Last Admin: 04/24/23 20:15 Dose: 1 mg Documented By: MICHAEL Sertraline HCl (Sertraline Hcl 100 Mg Tablet) 200 mg PO DAILY [facility] Last Admin: 04/25/23 08:55 Dose: 200 mg Documented By: LIVE Simethicone (Simethicone 80 Mg Tab.Chew) 80 mg PO TID [facility] Last Admin: 04/25/23 08:56 Dose: 80 mg Documented By: LIVE Sodium Chloride (0.9 % Sodium Chloride Flush 3 Ml Syringe) 3 ml IVFLUSH QSHIFT [facility] Last Admin: 04/25/23 08:56 Dose: 3 ml Documented By: LIVE Ursodiol (Ursodiol 300 Mg Capsule) 300 mg PO TID [facility] Last Admin: 04/25/23 08:56 Dose: 300 mg Documented By: LIVE Vitamin D (Cholecalciferol (Vitamin D3) 25 Mcg Tablet) 50 mcg PO DAILY [facility] Last Admin: 04/25/23 08:55 Dose: 50 mcg Documented By: LIVE Labs 04/23/23 05:17 04/23/23 05:17 Labs: Laboratory Results - last 24 hr 04/24/23 04/24/23 04/24/23 11:02 15:25 20:35 POC Glucose 376 H* 241 H 167 H 04/25/23 07:14 POC Glucose 166 H Assessment and Plan (1) Acute CVA (cerebrovascular accident): Status: Acute Plan 62F PMH diabetes, mild intermittent asthma, diabetic polyneuropathy, hyperlipidemia, GERD, recurrent CVAs presented with right hemiparesis and slurred speech Acute recurrent CVA Continue dual antiplatelet statin plan for rehab, awaiting auth Diabetes Insulin Mild intermittent asthma Stable DVT prophylaxis with Lovenox Full code Reason for continued hospitalization: Awaiting auth Time Spent With Patient Time: Total time managing care of this patient today ____ minutes. Quality Stroke Does the patient have a stroke diagnosis?: Yes Reason for No Anti-thrombotic by Day Two: Drug treatment not indicated VTE Prior VTE?: No VTE Risk Level:: Medical - moderate - high VTE Device Contraindication: Treatment Not Indicated VTE Drug Contraindication: N/A - Med Ordered
[2023-04-25 11:40] VITALS: BP 138/63; PULSE 63; RESP 20; TEMP 36.7; O2SAT 94
--- NOTE | 2023-04-25 11:52 | PM.DS ---
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 Last known well time was around 21:00 last night. This morning, family noted she was unable to communicate and had increasing weakness on the right side. She has had 4 previous strokes in 2022 and has known severe cavernous carotid stenosis. She is compliant with DAPT. No known arrhythmias. Neurology has reached out to [facility] regarding possible stenting of the cavernous carotids but per family they have not heard back yet. On arrival, vital stable. Hematology studies baseline. Renal function electrolyte levels normal. Glucose 141 on arrival. Troponin undetectable, BNP 67. Urinalysis unremarkable. CXR unremarkable. CT of the head shows multiple areas of low attenuation in the left parietal lobe, right thalamus, and brainstem/liana compatible with prior infarcts and are unchanged. No intracranial bleed. hospital course: Patient was admitted for acute recurrent CVA. She was initially continued on dual antiplatelet therapy and statin. She was seen by neurology recommended stopping Plavix and starting apixaban. She will be discharged home with rehab at home. For diabetes will continue insulin. For mild intermittent asthma she remained stable. Time Spent with Patient Time attestation: Total time managing care of this patient today ____ minutes. Discharge coordination time: Greater than 30 minutes Quality: Safe Use of Opioids Does Pt have an Active Cancer Diagnosis on the Problem List?: No Quality: Stroke Does the patient have a stroke diagnosis?: Yes Reason for No Anti-thrombotic at DC: N/A - Med Ordered Reason for No Anticoagulant at DC: N/A - Med Ordered Reason Not Initiating IV-Tpa: Drug treatment not indicated Reason for No Anti-thrombotic by Day Two: N/A - Med Ordered Reason for No Statin at DC: N/A - Med Ordered Physical Exam Vital Signs: Vital Signs: Last Vital Signs Temp 98.1 F 04/25/23 11:40 Pulse 63 04/25/23 11:40 Resp 20 04/25/23 11:40 BP 138/63 04/25/23 11:40 Pulse Ox 94 04/25/23 11:40 O2 Del Method Room Air 04/25/23 11:40 BMI result Body Mass Index 22.6 Neuro: Other: She is alert and awake slow to speak but is able to converse answer questions and follow commands. There is no gaze deviation. Visual carrillo are full. Moderate right-sided peripheral type facial weakness is noted. Mild left hemiparesis is noted. There is no dysarthria DS: Data Data Completed and Pending Labs on day of discharge: Laboratory Results - last 24 hr 04/24/23 04/24/23 04/25/23 15:25 20:35 07:14 POC Glucose 241 H 167 H 166 H Discharge Plan Discharge Anticipated Discharge Date/Time: 04/25/23 11:49 Patient Disposition: Home Health Service Discharge Diagnosis: cva Referrals: [facility] [Outside] - 3-5 Days (Resume [employer]ER, visiting nurse, and home physical therapy services) Physician,Unknown J [Primary Care Provider] - 1 Week Discharge Medications: New Eliquis 5 mg Tablet 5 mg PO BID Qty: 60 0RF Continued (DME) Transport wheelchair See Rx Instructions .Route .MEDSUPPLY Qty: 1 0RF Rx Instructions: As directed multivitamin Tablet 1 tab PO DAILY 90 Days Qty: 90 3RF (DME) lancets [FreeStyle Lancets] 28 gauge misc See Rx Instructions .ROUTE .MEDSUPPLY Qty: 100 3RF Rx Instructions: As directed check the blood sugar once a day (DME) adult diapers size small petite See Rx Instructions .Route .MEDSUPPLY Qty: 90 12RF Rx Instructions: As directed (DME) FreeStyle Lite Strips Strip See Rx Instructions .ROUTE .MEDSUPPLY Qty: 100 11RF Rx Instructions: As directed 3 x/day (DME) Adult pull ups medium package See Rx Instructions .Route .MEDSUPPLY Qty: 90 11RF Rx Instructions: 8 Per day (PRN), 11 refills for 12 months. (DME) stair lift See Rx Instructions .Route .MEDSUPPLY Qty: 1 0RF Rx Instructions: As directed (DME) disposable gloves [Disposable Latex-Free Gloves] Misc See Rx Instructions .Route Qty: 1000 3RF Rx Instructions: As directed sertraline 100 mg tablet 200 mg PO DAILY 30 Days Qty: 180 1RF ursodiol 250 mg tablet 250 mg PO TID Qty: 270 0RF loratadine 10 mg tablet 10 mg PO BEDTIME Qty: 90 0RF simethicone 80 mg tablet,chewable 80 mg PO TID Qty: 90 3RF risperidone 1 mg tablet 1 mg PO BEDTIME Qty: 30 1RF cholecalciferol (vitamin D3) 50 mcg (2,000 unit) capsule 50 mcg PO DAILY Qty: 90 0RF metformin 500 mg tablet 500 mg PO BID amlodipine 5 mg Tablet 5 mg PO DAILY Qty: 90 0RF Hold Instructions: Resume on 04/17/23. Protocol: Hold for SBP< HOLD for SBP < : 90 losartan 25 mg Tablet 12.5 mg PO DAILY Qty: 90 0RF Protocol: Hold for SBP< HOLD for SBP < : 90 atorvastatin 40 mg tablet 80 mg PO BEDTIME Qty: 90 0RF polyethylene glycol 3350 [Purelax] 17 gram powder in packet 17 g PO DAILY PRN (Reason: constipation) Artificial Tears(ss-iwft-yevs) 1-0.2-0.2 % drops 2 drp ophthalmic-Right Q4H PRN (Reason: Dry Eyes) (DME) pen needle, diabetic [Comfort EZ Pen [place]] 31 gauge x 3/16 needle See Rx Instructions .Route Qty: 100 3RF Rx Instructions: As directed (DME) MOUTH GUARD See Rx Instructions .Route .MEDSUPPLY Qty: 1 0RF Rx Instructions: As directed (DME) Walker with seat and wheels See Rx Instructions .Route .MEDSUPPLY Qty: 1 0RF Rx Instructions: As directed (DME) WIPES See Rx Instructions .Route .MEDSUPPLY Qty: 1 12RF Rx Instructions: As directed aspirin 81 mg tablet,delayed release (DR/EC) 81 mg PO DAILY Qty: 90 3RF acarbose 50 mg tablet 50 mg PO TID Qty: 90 4RF furosemide [Lasix] 20 mg tablet 20 mg PO DAILY Qty: 90 0RF albuterol sulfate 90 mcg/actuation HFA aerosol inhaler 1 inh inhalation QID PRN (Reason: Shortness Of Breath Or Wheezing) Discontinued clopidogrel 75 mg tablet 75 mg PO DAILY Qty: 30 0RF Discharge Orders: Discharge Order (Routine); Ordered 04/25/23 Ordered By: Aj Jordan Diet: ndd3 Activity on Discharge: As tolerated Stand Alone Forms: Patient Portal Discharge page Care Plan Goals: recovery Health Concerns: cva Plan of Treatment: stop plavix, start eliquis Assessment: see above
[2023-04-25 12:18] LABS: Glucose, Whole Blood 333 mg/dL (60-115)
--- NOTE | 2023-04-25 12:40 | MHC.CM.PN ---
EMR reviewed. Per MD rounds pt medically cleared for dc today. Seen by PT this morning. Updated notes sent to acute rehabs, no bed offers at this time. Family continues to decline STR. 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 DC summary faxed to Liliana at [facility] [phone] per request BLS transport scheduled for 2:30pm. Patient, family, MD and RN aware.
== END 2023-04-25 16:03 | disposition home health service (06) | DRG 45 ==
LOC: HO.ED 16:21 → HO.EDOVER 17:18 → HO.IMC 04-23 14:29
PROVIDERS: Admitting Provider Physician Assistant; Emergency Provider Emergency Medicine; PCP Internal Medicine; Visit Provider Internal Medicine
DX: I63.9 Cerebral infarction, unspecified (principal); E11.42 Type 2 diabetes mellitus with diabetic polyneuropathy; I69.351 Hemiplegia and hemiparesis following cerebral infarction affecting right dominant side; E78.5 Hyperlipidemia, unspecified; I65.23 Occlusion and stenosis of bilateral carotid arteries; J45.20 Mild intermittent asthma, uncomplicated; R29.705 NIHSS score 5; Z79.82 Long term (current) use of aspirin; Z91.040 Latex allergy status; Z98.84 Bariatric surgery status; Z79.84 Long term (current) use of oral hypoglycemic drugs; Z79.899 Other long term (current) drug therapy
CPT/HCPCS: 36415; 70450; 70551; 71045; 80048; 80061; 80076; 81001; 82947; 83690; 83880; 84484; 85025; 85610; 85730; 92526; 92610; 93005; 97116; 97162; 97166; 97530; 99285; J1650

== ENCOUNTER → 2023-04-22 17:10 | Outpatient (BNV) | payer OTHER, SELFPAY | PROVIDERS: Admitting Provider Physician Assistant; Emergency Provider Emergency Medicine; Visit Provider Physician Assistant | DX: I63.9 Cerebral infarction, unspecified (principal) | CPT/HCPCS: 99223; 99231; 99232; 99239 ==

== ENCOUNTER 2023-05-15 13:48 | Outpatient (REF) | payer OTHER, SELFPAY ==
--- NOTE | ~2023-05-15 | MM_ITS ---
EXAMINATION: MM DIAGNOSTIC DIGITAL BREAST TOMOSYNTHESIS, LEFT CLINICAL INFORMATION: Follow-up one view asymmetry seen lateral CC projection 04/03/2023 exam. COMPARISON: Mammography: 04/03/2023, 03/28/2022. TECHNIQUE: Digital breast tomosynthesis is performed. 2D images are generated from the tomosynthesis. The following views are obtained: Exaggerated left CC 3-D full-field view, spot compression left CC 3-D view, full-field 3-D left mediolateral view. FINDINGS: There are scattered areas of fibroglandular density (ACR BI-RADS breast composition Category b). Diagnostic views demonstrate no persistent abnormality in the lateral left breast on the CC projection. No abnormality is evident on the X CCL or ML projections. There are no suspicious masses, suspicious grouped calcifications, or areas of architectural distortion in either breast. MM/MM tomosynthesis added views L IMPRESSION: No persistent evidence of malignancy in the left breast. Recommend returning to routine annual screening mammography. ASSESSMENT: BI-RADS BI-RADS 2 - Benign Findings RECOMMENDATION: 1 year F/U Results were provided to the patient at time of visit by the technologist. This patient's information was entered into a reminder system with a target due date for their next mammogram.
== END 2023-05-15 13:49 | disposition home or self-care (01) ==
LOC: HO.MAMMO 13:48
PROVIDERS: PCP Internal Medicine; Visit Provider Internal Medicine
DX: N64.89 Other specified disorders of breast (principal)
CPT/HCPCS: 77061; 77065

== ENCOUNTER → 2023-05-15 14:00 | Outpatient (BNV) | payer OTHER, SELFPAY | PROVIDERS: PCP Internal Medicine; Visit Provider Radiology Diagnostic Radiology | DX: N64.89 Other specified disorders of breast (principal) | CPT/HCPCS: 77061; 77065 ==

== ENCOUNTER 2023-06-08 16:41 | Inpatient (IN) | payer OTHER, SELFPAY ==
--- NOTE | ~2023-06-08 | CT_ITS ---
EXAMINATION: CT ANGIOGRAM HEAD CT ANGIOGRAM NECK CLINICAL INFORMATION: Worsening right mouth droop. History of prior cerebrovascular accidents. COMPARISON: CT head from 06/08/2023. Brain MRI from 04/24/2023. TECHNIQUE: Initial noncontrast scout leaser imaging of the head and neck was performed. Comparison is made with noncontrast head CT from earlier today. Test bolus sequences followed by intravenous administration 70 mL of Omnipaque 350. Helical imaging was performed in the axial plane from the aortic arch to the skull vertex. Delayed postcontrast imaging of the head was also performed. The data was processed at the cardiac cath lab radiology technologist's workstation for generation of MIP sequences. Angled MIPs and volume rendered reformatted images were also generated at an offline 3D workstation. Stenoses are assessed in accordance with NASCET criteria unless otherwise indicated. This CT examination was performed using dose optimization techniques as appropriate, variously including the following: *Automated exposure control. *Adjustment of mA and/or kV according to patient size (this includes techniques or standardized protocols for targeted exams where dose is matched to indication/reason for exam; i.e. extremities or head). *Use of iterative reconstruction technique. DLP: 1143 mGy-cm FINDINGS: CT Head: There is no evidence of acute intracranial hemorrhage or edematous territorial infarction. Chronic lacunar infarcts of the right thalamus, left midbrain, and liana. No new loss of alvarez-white matter differentiation. Scattered and partially confluent hypoattenuation in the periventricular and deep white matter are consistent with moderate microangiopathy. The ventricles are normal in morphology and size. No evidence for obstructive hydrocephalus. No abnormal mass effect or midline shift. No extra-axial fluid collections. No pathologic intra-axial enhancement or regional oligemia. No acute soft tissue or osseous abnormalities. Moderate mucosal thickening of the left maxillary sinus. Mild mucosal thickening of the remaining paranasal sinuses. The mastoid air cells and middle ear cavities are clear. Bilateral lens extractions. CT Neck: The thyroid gland and remaining cervical soft tissues are within normal limits. Mild reversal the normal cervical lordosis centered on C5-C6. Advanced degenerative disc disease at C5-C6. Moderate degenerative disc disease at C4-C5 and C6-C7. CT Upper Chest: Mosaic attenuation pattern of the visualized upper lungs. Neck CTA: Aortic Arch: Normal contour and caliber with moderate calcific atherosclerotic disease. Two vessel branching pattern of the arch with left common carotid artery arising from the brachiocephalic trunk. Great Vessel Origins: No significant stenosis of the branch origins. Right Common Carotid Artery: No focal stenosis or occlusion. Cervical Right Internal Carotid Artery: Calcific atherosclerotic disease of the carotid bulb and proximal internal carotid artery causing less than 50% stenosis. Left Common Carotid Artery: No focal stenosis or occlusion. Cervical Left Internal Carotid Artery: Calcific atherosclerotic disease of the carotid bulb and proximal internal carotid artery causing less than 50% stenosis. Cervical Right Vertebral Artery: Atherosclerotic disease causes moderate stenosis of the origin. No additional focal stenosis or occlusion. Cervical Left Vertebral Artery: Dominant. No focal stenosis or occlusion. Brain CTA: Intracranial Internal Carotid Arteries: Calcific atherosclerotic disease of the intracranial internal carotid arteries without occlusion or flow-limiting stenosis. Right Anterior Cerebral Artery: The A1 segment is mildly diminutive. Normal opacification of the distal ALEXANDER segments. Left Anterior Cerebral Artery: Normal A1 segment. Normal opacification of the distal ALEXANDER segments. Anterior Communicating Artery: Normal. Right Middle Cerebral Artery: Normal M1 segment of the MCA without focal stenosis or occlusion. Normal arborization of the distal segments. Left Middle Cerebral Artery: Normal M1 segment of the MCA without focal stenosis or occlusion. Normal arborization of the distal segments. Right Vertebral Artery: Normal V4 segment. Normal opacification of the proximal segments of the posterior inferior cerebellar artery. Left Vertebral Artery: Normal V4 segment. Normal opacification of the proximal segments of the posterior inferior cerebellar artery. Basilar Artery: Normal without focal stenosis or occlusion. Normal appearance of the proximal superior cerebellar arteries. Right Posterior Cerebral Artery: Normal P1 segment. Normal opacification of the distal PROGRESS WORKER segments. Left Posterior Cerebral Artery: Normal P1 segment. Normal opacification of the distal PROGRESS WORKER segments. Normal opacification of the superior sagittal, straight, transverse, and sigmoid sinuses. CT/CT angio head neck stroke IMPRESSION: 1. No evidence of acute intracranial hemorrhage or edematous territorial infarction. Chronic lacunar infarcts of the right thalamus, left midbrain, and liana. Moderate underlying microangiopathy. 2. CTA of the head and neck without proximal occlusion. Moderate atherosclerotic stenosis of the origin of the right vertebral artery. No additional flow-limiting stenosis.
--- NOTE | ~2023-06-08 | CT_ITS ---
EXAMINATION: CT HEAD WITHOUT CONTRAST CLINICAL INFORMATION: Worsening right arm weakness. Multiple prior cerebrovascular accidents. COMPARISON: Brain MRI from 04/24/2023. CT head from 04/22/2023. TECHNIQUE: Contiguous axial imaging was performed from the skull base to vertex without intravenous administration of contrast. This CT examination was performed using dose optimization techniques as appropriate, variously including the following: *Automated exposure control. *Adjustment of mA and/or kV according to patient size (this includes techniques or standardized protocols for targeted exams where dose is matched to indication/reason for exam; i.e. extremities or head). *Use of iterative reconstruction technique. DLP: 454 mGy-cm FINDINGS: There is no evidence of acute intracranial hemorrhage or edematous territorial infarction. Chronic lacunar infarcts of the right thalamus, left midbrain, and liana. No new loss of alvarez-white matter differentiation. Scattered and partially confluent hypoattenuation in the periventricular and deep white matter are consistent with moderate microangiopathy. The ventricles are normal in morphology and size. No evidence for obstructive hydrocephalus. No abnormal mass effect or midline shift. No extra-axial fluid collections. No acute soft tissue or osseous abnormalities. The mastoid air cells and visualized paranasal sinuses are clear. CT/CT head for stroke IMPRESSION: 1. No evidence of acute intracranial hemorrhage or edematous territorial infarction. 2. Chronic lacunar infarcts of the right thalamus, left midbrain, and liana. Moderate underlying microangiopathy.
--- NOTE | 2023-06-08 16:50 | ECG_ITS ---
Test Reason : WEAKNESS Blood Pressure : / mmHG Vent. Rate : 071 BPM Atrial Rate : 071 BPM P-R Int : 174 ms QRS Dur : 062 ms QT Int : 420 ms P-R-T Axes : 052 006 081 degrees QTc Int : 456 ms Normal sinus rhythm Normal ECG When compared with ECG of 22-APR-2023 14:15, No significant change was found Referred By: Reema Christensen Electronically Signed By:SVETA FRASER MD
[2023-06-08 16:55] VITALS: BP 141/74; PULSE 63; O2SAT 97
--- NOTE | 2023-06-08 17:03 | ED_ITS ---
HPI - Neuro Symptoms/Deficit General Chief Complaint: Stroke Stated Complaint: R SIDE DEFECITS, FACIAL DROOP,R ARM WEAKNESS Time Seen by Provider: 06/08/23 16:51 Source: EMS Mode of arrival: EMS Limitations: other (Multiple CVAs) History of Present Illness HPI Narrative: Patient comes to the emergency room via ambulance from home. The family reported that the patient has worsening right-sided mouth drooping, worsening weakness in the right extremity. At baseline, patient has deficits in the extremities due to previous CVAs. However, patient has been getting physical therapy and the family reported to EMS that patient was regaining some function in her right arm. But today, patient was unable to move her arm. According to the family, last time that patient was seen well was 2 hours prior to EMS arrival. Patient has been taking Eliquis for a month now. Previously on Plavix. Patient states that she has chronic weakness, she is not sure if there is anything new going on. Patient is poor historian and very difficult to understand Related Data Home Medications Medication Instructions Recorded Confirmed albuterol sulfate 90 mcg/actuation 1 inh inhalation QID PRN Shortness 04/28/20 06/08/23 aerosol inhaler Of Breath Or Wheezing polyethylene glycol 3350 17 gram 17 g PO DAILY PRN constipation 10/25/22 06/08/23 oral powder packet (Purelax) metformin 500 mg tablet 500 mg PO BID 01/19/23 06/08/23 peg [id number] 1 2 drp ophthalmic-Right Q4H PRN Dry 04/22/23 06/08/23 %-0.2 %-0.2 % eye drops Eyes (Artificial Tears ([id number])) Previous Rx's Medication Instructions Recorded pen needle, diabetic 31 gauge x #100 ea 02/24/2109/22 (Comfort EZ Pen Orrtanna) Transport wheelchair #1 ea 08/11/21 multivitamin 1 tab PO DAILY 90 days #90 tabs 09/13/21 Walker with seat and wheels #1 ea 09/28/21 lancets 28 gauge (FreeStyle #100 ea 12/28/21 Lancets) MOUTH GUARD #1 ea 06/08/22 adult diapers size small petite #90 ea 08/03/22 blood sugar diagnostic (FreeStyle #100 ea 05/22/23 Lite Strips) Adult pull ups #90 ea 12/13/22 stair lift #1 ea 12/16/22 disposable gloves (Disposable #1,000 ea 01/03/23 Latex-Free Gloves) amlodipine 5 mg tablet 5 mg PO DAILY #90 tabs 01/21/23 losartan 25 mg tablet 12.5 mg PO DAILY #90 tabs 01/21/23 sertraline 100 mg tablet 200 mg (2 x 100 mg) PO DAILY 30 01/30/23 days #180 tabs loratadine 10 mg tablet 10 mg PO BEDTIME #90 tabs 03/15/23 WIPES #1 ea 03/28/23 acarbose 50 mg tablet 50 mg PO TID #90 tabs 03/28/23 aspirin 81 mg tablet,delayed 81 mg PO DAILY #90 tabs 03/28/23 release atorvastatin 40 mg tablet 80 mg (2 x 40 mg) PO BEDTIME #90 04/15/23 tabs cholecalciferol (vitamin D3) 50 50 mcg PO DAILY #90 caps 04/18/23 mcg (2,000 unit) capsule risperidone 1 mg tablet 1 mg PO BEDTIME #90 tabs 05/15/23 ursodiol 250 mg tablet 250 mg PO TID #270 tabs 05/15/23 apixaban 5 mg tablet (Eliquis) 5 mg PO BID #180 tabs 05/16/23 furosemide 20 mg tablet (Lasix) 20 mg PO DAILY #90 tabs 05/16/23 Allergies Allergy/AdvReac Type Severity Reaction Status Date / Time Latex, Natural Rubber Allergy Intermediate Rash Verified 04/20/23 11:39 Sulfa (Sulfonamide AdvReac Intermediate Stomach Verified 04/20/23 11:39 Antibiotics) Upset [SULFA (SULFONAMIDE ANTIBIOTICS)] Morphine Sulfate AdvReac Intermediate Abdominal Uncoded 04/20/23 11:39 Pain Review of Systems 2 Review of Systems: Yes Unobtainable due to mental condition PMFSH Past Medical History Medical History History of CVA (cerebrovascular accident) Dysphagia Hypertension Hypertensive urgency Cervical osteoarthritis Osteoarthritis of right glenohumeral joint Shoulder pain, right BOB positive CVA (cerebral vascular accident) HTN (hypertension) Primary biliary cholangitis Fatty liver disease, nonalcoholic History of umbilical hernia Postural hypotension Sjogrens syndrome GERD (gastroesophageal reflux disease) History of sleep apnea Asthma Subclinical hypothyroidism Hypertension Dyslipidemia Diabetic retinopathy associated with type 2 diabetes mellitus Diabetic polyneuropathy associated with type 2 diabetes mellitus Hypoglycemia after GI (gastrointestinal) surgery Diabetes type 2, uncontrolled Surgical History Hx of dilation and curettage Hx of tonsillectomy History of laparoscopic appendectomy History of carpal tunnel release Hx of colonoscopy History of esophagogastroduodenoscopy (EGD) History of partial hysterectomy Hx of section Hx of gastric bypass Family History Family History Father [place] (myocardial infarction) Diabetes mellitus Mother Diabetes mellitus CVA (cerebral vascular accident) Maternal Grandmother Stomach cancer Sister Hemorrhagic cerebrovascular accident (CVA) Social History Social History Household Members: Significant Other Housing: House Are you a primary caregiver assisted living to a significant other at home: No Do you presently have visiting nurse or other home services: Yes Alcohol intake: never Patient Tobacco Use Status: Never used Tobacco e-Cigarette/Vaping Use: Never Used Second Hand Smoke Exposure: No Advance Directives: Yes Advance Directives on File: Yes Advance Directives Date on File: 03/07/23 service: No Current occupational status: disabled Cognitive needs: Yes (wheelchait) Hearing needs: No Vision needs: No Physical Exam 2 Vital Signs: Vital Signs: Last Vital Signs Temp 97.9 F 06/08/23 17:52 Pulse 71 06/08/23 17:52 Resp 16 06/08/23 17:52 BP 143/46 H 06/08/23 17:52 Pulse Ox 97 06/08/23 17:52 O2 Del Method Room Air 06/08/23 17:52 BMI result Body Mass Index 26.4 Const: Other: Appearance: Alert. No acute distress Eyes: Pupils equal, round and reactive to light. ENT: Pharynx normal. Neck: Normal inspection. Neck supple. No lymph nodes noted. No crepitus CVS: Normal heart rate and rhythm. Pulses normal. Normal S1 and S2 Respiratory: No respiratory distress. Breath sounds normal. No Wheezing. No rales Abdomen: Soft and nontender. No rigidity. No distention. Skin: Skin warm and dry. Normal skin color. Normal skin turgor. Extremities: No lower extremity edema. No Lacerations. No Rash Neuro: Oriented X 3. Chronic Dificid in all extremities, especially on the right upper extremity and both legs. Psych: calm, cooperative, normal affect Course Course Course Narrative: -patient has an NIH score of 8. However, patient has had multiple strokes in the past, most of her deficits are chronic. Also, patient is not a candidate for TNK, patient is on Eliquis -my interpretation of CT scan of the head: Several chronic changes, no obvious bleed. -I discussed the CT and CTA with our radiologist, no acute findings. Only chronic -I discussed the patient with Dr. Jordan, patient being admitted Medications Administered Generic Name Dose Route Start Last Admin Trade Name Freq PRN Reason Stop Dose Admin Acetaminophen 650 mg 06/08/23 20:55 06/08/23 21:14 Acetaminophen 325 Mg Tablet PO 650 mg Q6H PRN Administration Pain, Mild (Pain Scale 1-3) Apixaban 5 mg 06/08/23 21:00 06/08/23 21:15 Apixaban 5 Mg Tablet PO 5 mg BID SHARON Administration Atorvastatin Calcium 80 mg 06/08/23 21:15 06/08/23 21:15 Atorvastatin Calcium 80 Mg Tablet PO 80 mg BEDTIME SHARON Administration Discontinued Medications Generic Name Dose Route Start Last Admin Trade Name Freq PRN Reason Stop Dose Admin Iohexol 65 ml 06/08/23 17:25 06/08/23 17:26 Iohexol 350 Mg/Ml 100 Ml Infus..Btl IV 06/08/23 17:26 65 ml ONCE ONE Administration Medical Decision Making Differential Diagnosis Differential Diagnoses: The differential diagnosis associated with the presentation includes (TIA, CVA, deconditioning) Admission/Observation Consideration of admission/observation: Escalation of care including admission/observation considered Consult Healthcare Provider Management of the patient was discussed with: Hospitalist Lab Data MDM Lab Attestation statement: I reviewed the patient's lab results. 06/08/23 18:09 06/08/23 18:09 Labs: Lab Results 06/08/23 Range/Units 18:09 WBC 6.1 (4.8-10.8) X10*3/uL RBC 4.57 (4.20-5.50) X10*6/uL Hgb 11.0 L (12.0-16.0) g/dl Hct 35.6 L (37.0-47.0) % MCV 77.9 L (80.0-98.0) fL MCH 24.1 L (27.0-33.0) pg MCHC 30.9 L (31.0-35.0) g/dl RDW 17.4 H (11.0-16.0) % Plt Count 267 D (160-400) X10*3/uL MPV 12.5 H (9.4-12.3) fL Immature Gran % (Auto) 0.5 H (0.0-0.4) % Neut % (Auto) 49.9 (45-73) % Lymph % (Auto) 36.2 (20-40) % [place]eller % (Auto) 7.4 (2-11) % Eos % (Auto) 5.3 H (0-4) % Baso % (Auto) 0.7 (0-2) % Lymph # (Auto) 2.2 (1.2-4.9) X10*3/uL Teller # (Auto) 0.5 (0.1-1.2) X10*3/uL Eos # (Auto) 0.3 (0.0-0.4) X10*3/uL Baso # (Auto) 0.0 (0.0-0.2) X10*3/uL Abs Immat Gran (auto) 0.03 (0.00-0.03) X10*3/uL Absolute Neuts (auto) 3.0 (2.0-8.3) x10*3/uL Absolute Nucleated RBC 0.000 (0.0-0.012) X10*3/uL Nucleated RBC % (auto) 0.0 (0.0-0.2) /100WBC Smear Tech's Comments VERIFIED PT 12.8 (11.1-13.3) SEC INR 1.1 (0.9-1.1) APTT 35.7 (26.0-36.4) SEC Sodium 137 (135-145) mmol/L Potassium 5.0 D (3.3-5.1) mmol/L Chloride 104 (96-108) mmol/L Carbon Dioxide 24 (22-29) mmol/L Anion Gap 14 (12-20) BUN 16 (9-16) mg/dL Creatinine 0.63 (0.5-1.4) mg/dL Estim Creat Clear Calc 58.3 Estimated GFR > 60 Random Glucose 92 (60-115) mg/dL Calcium 9.4 (8.4-10.2) mg/dL Magnesium 1.7 (1.6-2.6) mg/dL Total Bilirubin 0.2 (0.0-1.0) mg/dL Direct Bilirubin < 0.2 (0.0-0.5) mg/dL AST 41 H (5-31) U/L ALT 35 H (0-31) U/L Alkaline Phosphatase 268 H (39-117) U/L Troponin I High Sens 3.9 (<3.5-17.0) ng/L Total Protein 7.6 (6.5-8.0) g/dL Albumin 3.4 L (3.5-5.0) g/dL Independent Interpretation I performed an independent interpretation of an: CT Scan Radiology Impression Discussion of test interpretation with radiology: I discussed test interpretation with the radiologist and I have reviewed the radiologist's reading. Radiologist Impression: INDINGS: CT Head: There is no evidence of acute intracranial hemorrhage or edematous territorial infarction. Chronic lacunar infarcts of the right thalamus, left midbrain, and liana. No new loss of alvarez-white matter differentiation. Scattered and partially confluent hypoattenuation in the periventricular and deep white matter are consistent with moderate microangiopathy. The ventricles are normal in morphology and size. No evidence for obstructive hydrocephalus. No abnormal mass effect or midline shift. No extra-axial fluid collections. No pathologic intra-axial enhancement or regional oligemia. No acute soft tissue or osseous abnormalities. Moderate mucosal thickening of the left maxillary sinus. Mild mucosal thickening of the remaining paranasal sinuses. The mastoid air cells and middle ear cavities are clear. Bilateral lens extractions. CT Neck: The thyroid gland and remaining cervical soft tissues are within normal limits. Mild reversal the normal cervical lordosis centered on C5-C6. Advanced degenerative disc disease at C5-C6. Moderate degenerative disc disease at C4-C5 and C6-C7. CT Upper Chest: Mosaic attenuation pattern of the visualized upper lungs. Neck CTA: Aortic Arch: Normal contour and caliber with moderate calcific atherosclerotic disease. Two vessel branching pattern of the arch with left common carotid artery arising from the brachiocephalic trunk. Great Vessel Origins: No significant stenosis of the branch origins. Right Common Carotid Artery: No focal stenosis or occlusion. Cervical Right Internal Carotid Artery: Calcific atherosclerotic disease of the carotid bulb and proximal internal carotid artery causing less than 50% stenosis. Left Common Carotid Artery: No focal stenosis or occlusion. Cervical Left Internal Carotid Artery: Calcific atherosclerotic disease of the carotid bulb and proximal internal carotid artery causing less than 50% stenosis. Cervical Right Vertebral Artery: Atherosclerotic disease causes moderate stenosis of the origin. No additional focal stenosis or occlusion. Cervical Left Vertebral Artery: Dominant. No focal stenosis or occlusion. Brain CTA: Intracranial Internal Carotid Arteries: Calcific atherosclerotic disease of the intracranial internal carotid arteries without occlusion or flow-limiting stenosis. Right Anterior Cerebral Artery: The A1 segment is mildly diminutive. Normal opacification of the distal ALEXANDER segments. Left Anterior Cerebral Artery: Normal A1 segment. Normal opacification of the distal ALEXANDER segments. Anterior Communicating Artery: Normal. Right Middle Cerebral Artery: Normal M1 segment of the MCA without focal stenosis or occlusion. Normal arborization of the distal segments. Left Middle Cerebral Artery: Normal M1 segment of the MCA without focal stenosis or occlusion. Normal arborization of the distal segments. Right Vertebral Artery: Normal V4 segment. Normal opacification of the proximal segments of the posterior inferior cerebellar artery. Left Vertebral Artery: Normal V4 segment. Normal opacification of the proximal segments of the posterior inferior cerebellar artery. Basilar Artery: Normal without focal stenosis or occlusion. Normal appearance of the proximal superior cerebellar arteries. Right Posterior Cerebral Artery: Normal P1 segment. Normal opacification of the distal [employer] segments. Left Posterior Cerebral Artery: Normal P1 segment. Normal opacification of the distal [employer] segments. Normal opacification of the superior sagittal, straight, transverse, and sigmoid sinuses. CT/CT angio head neck stroke IMPRESSION: 1. No evidence of acute intracranial hemorrhage or edematous territorial infarction. Chronic lacunar infarcts of the right thalamus, left midbrain, and liana. Moderate underlying microangiopathy. 2. CTA of the head and neck without proximal occlusion. Moderate atherosclerotic stenosis of the origin of the right vertebral artery. No additional flow-limiting stenosis. Independent Historian Clinical information obtained from an independent historian. History obtained from or confirmed by: EMS External Record Review External record reviewed: Inpatient record NIH Stroke Scale Internal: Initial- Upon Arrival Level of Consciousness: Alert Level of Consciousness Questions: Answers both questions correctly Level of Consciousness Commands: Performs both tasks correctly Best Gaze: Normal Visual: No visual loss Facial Palsy: Partial paralysis (Chronic) Motor Arm (Right): Drift (Chronic) Motor Arm (Left): No drift Motor Leg (Right): Some effort against gravity Motor Leg (Left): Some effort against gravity Limb Ataxia: Absent Sensory: Normal Best Language: Mild to moderate aphasia Dysarthia: Normal Extinction and Inattention: No abnormality Score: 8 Critical Care Time Critical Care Time Critical Care Time: Yes Total Critical Care Time: 75 Attestation: I have personally provided critical care time. Time includes review of lab data, radiology results, discussion with consultants, and monitoring for potential decompensation. Intervention performed as documented. Discharge Plan Discharge Clinical Impression: Recurrent cerebrovascular accidents (CVAs) Patient Disposition: Admitted As Inpatient Prescriptions: No Action (DME) Transport wheelchair See Rx Instructions .Route .MEDSUPPLY Qty: 1 0RF Rx Instructions: As directed multivitamin Tablet 1 tab PO DAILY 90 Days Qty: 90 3RF (DME) lancets [FreeStyle Lancets] 28 gauge misc See Rx Instructions .ROUTE .MEDSUPPLY Qty: 100 3RF Rx Instructions: As directed check the blood sugar once a day (DME) adult diapers size small petite See Rx Instructions .Route .MEDSUPPLY Qty: 90 12RF Rx Instructions: As directed (DME) FreeStyle Lite Strips Strip See Rx Instructions .ROUTE .MEDSUPPLY Qty: 100 11RF Rx Instructions: As directed 3 x/day (DME) Adult pull ups medium package See Rx Instructions .Route .MEDSUPPLY Qty: 90 11RF Rx Instructions: 8 Per day (PRN), 11 refills for 12 months. (DME) stair lift See Rx Instructions .Route .MEDSUPPLY Qty: 1 0RF Rx Instructions: As directed (DME) disposable gloves [Disposable Latex-Free Gloves] Misc See Rx Instructions .Route Qty: 1000 3RF Rx Instructions: As directed sertraline 100 mg tablet 200 mg PO DAILY 30 Days Qty: 180 1RF loratadine 10 mg tablet 10 mg PO BEDTIME Qty: 90 0RF cholecalciferol (vitamin D3) 50 mcg (2,000 unit) capsule 50 mcg PO DAILY Qty: 90 0RF ursodiol 250 mg tablet 250 mg PO TID Qty: 270 0RF risperidone 1 mg tablet 1 mg PO BEDTIME Qty: 90 1RF Eliquis 5 mg tablet 5 mg PO BID Qty: 180 1RF furosemide [Lasix] 20 mg tablet 20 mg PO DAILY Qty: 90 0RF metformin 500 mg tablet 500 mg PO BID amlodipine 5 mg Tablet 5 mg PO DAILY Qty: 90 0RF Hold Instructions: Resume on 04/17/23. Protocol: Hold for SBP< HOLD for SBP < : 90 losartan 25 mg Tablet 12.5 mg PO DAILY Qty: 90 0RF Protocol: Hold for SBP< HOLD for SBP < : 90 atorvastatin 40 mg tablet 80 mg PO BEDTIME Qty: 90 0RF polyethylene glycol 3350 [Purelax] 17 gram powder in packet 17 g PO DAILY PRN (Reason: constipation) Artificial Tears([id number]) 1-0.2-0.2 % drops 2 drp ophthalmic-Right Q4H PRN (Reason: Dry Eyes) (DME) pen needle, diabetic [Comfort EZ Pen Orrtanna] 31 gauge x 3/16 needle See Rx Instructions .Route Qty: 100 3RF Rx Instructions: As directed (DME) MOUTH GUARD See Rx Instructions .Route .MEDSUPPLY Qty: 1 0RF Rx Instructions: As directed (DME) Walker with seat and wheels See Rx Instructions .Route .MEDSUPPLY Qty: 1 0RF Rx Instructions: As directed (DME) WIPES See Rx Instructions .Route .MEDSUPPLY Qty: 1 12RF Rx Instructions: As directed aspirin 81 mg tablet,delayed release (DR/EC) 81 mg PO DAILY Qty: 90 3RF acarbose 50 mg tablet 50 mg PO TID Qty: 90 4RF albuterol sulfate 90 mcg/actuation HFA aerosol inhaler 1 inh inhalation QID PRN (Reason: Shortness Of Breath Or Wheezing)
[2023-06-08] MEDS: iohexoL 350 MG/ML 100 ML INFUS..BTL 65 ML IV (17:26)
[2023-06-08 17:52] VITALS: BP 143/46; PULSE 71; RESP 16; TEMP 36.6; O2SAT 97; BMI 26.4
[2023-06-08 18:15] LABS: MANUAL DIFF FLAG SCAN; SCAN SMEAR FLAG 1
[2023-06-08 18:17] LABS: Basophils Percent Auto 0.7 % (0-2); Eosinophils Absolute Auto 0.3 X10*3/uL (0.0-0.4); Eosinophils Percent Auto 5.3 % (0-4); Hematocrit 35.6 % (37.0-47.0); Imm Gran Abs Auto 0.03 X10*3/uL (0.00-0.03); Imm Gran Pct Auto 0.5 % (0.0-0.4); Lymphocytes Absolute Auto 2.2 X10*3/uL (1.2-4.9); Lymphocytes Percent Auto 36.2 % (20-40); Mean Corpuscular HGB Conc 30.9 g/dl (31.0-35.0); Mean Corpuscular Hemoglobin 24.1 pg (27.0-33.0); Mean Corpuscular Volume 77.9 fL (80.0-98.0); Mean Platelet Volume 12.5 fL (9.4-12.3); Monocytes Absolute Auto 0.5 X10*3/uL (0.1-1.2); Monocytes Percent Auto 7.4 % (2-11); Neutrophils Percent Auto 49.9 % (45-73); PLT ABN DIST 1; Red Blood Count 4.57 X10*6/uL (4.20-5.50); Red Cell Distribution Width 17.4 % (11.0-16.0); White Blood Count 6.1 X10*3/uL (4.8-10.8)
[2023-06-08 18:21] LABS: INTERNATIONAL NORM RATIO 1.1 (0.9-1.1); Prothrombin Time 12.8 SEC (11.1-13.3)
[2023-06-08 18:23] LABS: Partial Thromboplastin Time 35.7 SEC (26.0-36.4)
[2023-06-08 18:32] LABS: Alanine Aminotransferase 35 U/L (0-31); Albumin Level 3.4 g/dL (3.5-5.0); Alkaline Phosphatase 268 U/L (39-117); Anion Gap 14 (12-20); Aspartate Amino Transferase 41 U/L (5-31); Bilirubin Direct < 0.2 mg/dL (0.0-0.5); Bilirubin Total 0.2 mg/dL (0.0-1.0); Blood Urea Nitrogen 16 mg/dL (9-16); Calcium 9.4 mg/dL (8.4-10.2); Carbon Dioxide 24 mmol/L (22-29); Chloride 104 mmol/L (96-108); Creatinine Clr Calc Pharmacy 58.3; Estimated Glomerular Filt Rate > 60; Glucose Random 92 mg/dL (60-115); Magnesium 1.7 mg/dL (1.6-2.6); Sodium 137 mmol/L (135-145); Total Protein 7.6 g/dL (6.5-8.0)
[2023-06-08 18:37] LABS: Troponin-I High Sensitivity 3.9 ng/L (<3.5-17.0)
[2023-06-08 18:39] LABS: Platelet Count 267 X10*3/uL (160-400)
[2023-06-08 18:40] LABS: SLIDE REVIEW VERIFIED
--- NOTE | 2023-06-08 20:58 | P.HPHOSP_ITS ---
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 daughter does not know exactly when it started, at some point on day of presentation, noted to have worsening right sided facial droop and weakness, falling to right side. patient most recently put on eliquis and asa, has known bilateral intracranial carotid stenosis and right extracranial vertebral artery stenosis and intact intracranial vertebral basilar system. is currently in process of being referred to specialist in [place] for possible surgical intervention. in ED CTA head and neck with no acute cva or occlusion. Review of Systems 2 Review of Systems: Yes all other systems are reviewed and are negative [facility] Medical History History of CVA (cerebrovascular accident) Dysphagia Hypertension Hypertensive urgency Cervical osteoarthritis Osteoarthritis of right glenohumeral joint Shoulder pain, right BOB positive CVA (cerebral vascular accident) HTN (hypertension) Primary biliary cholangitis Fatty liver disease, nonalcoholic History of umbilical hernia Postural hypotension Sjogrens syndrome GERD (gastroesophageal reflux disease) History of sleep apnea Asthma Subclinical hypothyroidism Hypertension Dyslipidemia Diabetic retinopathy associated with type 2 diabetes mellitus Diabetic polyneuropathy associated with type 2 diabetes mellitus Hypoglycemia after GI (gastrointestinal) surgery Diabetes type 2, uncontrolled Family History Father [place] (myocardial infarction) Diabetes mellitus Mother Diabetes mellitus CVA (cerebral vascular accident) Maternal Grandmother Stomach cancer Sister Hemorrhagic cerebrovascular accident (CVA) Surgical History Hx of dilation and curettage Hx of tonsillectomy History of laparoscopic appendectomy History of carpal tunnel release Hx of colonoscopy History of esophagogastroduodenoscopy (EGD) History of partial hysterectomy Hx of section Hx of gastric bypass Social History Household Members: Significant Other Housing: House Are you a primary home care associate to a significant other at home: No Do you presently have visiting nurse or other home services: Yes Alcohol intake: never Patient Tobacco Use Status: Never used Tobacco e-Cigarette/Vaping Use: Never Used Second Hand Smoke Exposure: No Advance Directives: Yes Advance Directives on File: Yes Advance Directives Date on File: 03/07/23 service: No Current occupational status: disabled Cognitive needs: Yes (wheelchait) Hearing needs: No Vision needs: No Meds Allergies Allergy/AdvReac Type Severity Reaction Status Date / Time Latex, Natural Rubber Allergy Intermediate Rash Verified 04/20/23 11:39 Sulfa (Sulfonamide AdvReac Intermediate Stomach Verified 04/20/23 11:39 Antibiotics) Upset [SULFA (SULFONAMIDE ANTIBIOTICS)] Morphine Sulfate AdvReac Intermediate Abdominal Uncoded 04/20/23 11:39 Pain Home Medications Medication Instructions Recorded Confirmed Last Taken Type albuterol sulfate 90 mcg/actuation 1 inh inhalation QID PRN Shortness 04/28/20 06/08/23 03/06/23 History aerosol inhaler Of Breath Or Wheezing polyethylene glycol 3350 17 gram 17 g PO DAILY PRN constipation 10/25/22 06/08/23 10/25/22 History oral powder packet (Purelax) metformin 500 mg tablet 500 mg PO BID 01/19/23 06/08/23 03/06/23 History peg [id number] 1 2 drp ophthalmic-Right Q4H PRN Dry 04/22/23 06/08/23 Unknown History %-0.2 %-0.2 % eye drops Eyes (Artificial Tears ([id number])) Physical Exam 2 Vital Signs and Narrative: Vital Signs: Last Vital Signs Temp 97.9 F 06/08/23 17:52 Pulse 71 06/08/23 17:52 Resp 16 06/08/23 17:52 BP 143/46 H 06/08/23 17:52 Pulse Ox 97 06/08/23 17:52 O2 Del Method Room Air 06/08/23 17:52 BMI result Body Mass Index 26.4 General: AO X 3, no acute distress Resp: CTA bilateral, no accessory muscles used CVS: S1,S2,RRR GI: soft, non tender, non distended Neuro: right facial droop, right hemiparesis 4-/5 Psych: appropriate affect, appropriate insight Results Labs 06/08/23 18:09 06/08/23 18:09 Labs: Laboratory Results - last 24 hr 06/08/23 18:09 MCV 77.9 L MCH 24.1 L MCHC 30.9 L RDW 17.4 H Plt Count 267 D MPV 12.5 H Immature Gran % (Auto) 0.5 H Neut % (Auto) 49.9 Lymph % (Auto) 36.2 [place] % (Auto) 7.4 Eos % (Auto) 5.3 H Baso % (Auto) 0.7 Lymph # (Auto) 2.2 [place] # (Auto) 0.5 Eos # (Auto) 0.3 Baso # (Auto) 0.0 Abs Immat Gran (auto) 0.03 Absolute Neuts (auto) 3.0 Absolute Nucleated RBC 0.000 Nucleated RBC % (auto) 0.0 Smear Tech's Comments VERIFIED PT 12.8 INR 1.1 APTT 35.7 Anion Gap 14 Estim Creat Clear Calc 58.3 Estimated GFR > 60 Random Glucose 92 Calcium 9.4 Magnesium 1.7 Total Bilirubin 0.2 Direct Bilirubin < 0.2 AST 41 H ALT 35 H Alkaline Phosphatase 268 H Total Protein 7.6 Albumin 3.4 L Imaging Radiologist's Impressions: Impressions Head CT 06/08/23 17:02 IMPRESSION: 1. No evidence of acute intracranial hemorrhage or edematous territorial infarction. 2. Chronic lacunar infarcts of the right thalamus, left midbrain, and liana. Moderate underlying microangiopathy. Head/Neck CTA 06/08/23 17:26 IMPRESSION: 1. No evidence of acute intracranial hemorrhage or edematous territorial infarction. Chronic lacunar infarcts of the right thalamus, left midbrain, and liana. Moderate underlying microangiopathy. 2. CTA of the head and neck without proximal occlusion. Moderate atherosclerotic stenosis of the origin of the right vertebral artery. No additional flow-limiting stenosis. 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 Quality Stroke Does the patient have a stroke diagnosis?: Yes Reason for No Anti-thrombotic by Day Two: N/A - Med Ordered VTE Prior VTE?: No VTE Risk Level:: Medical - moderate - high VTE Device Contraindication: Treatment Not Indicated VTE Drug Contraindication: N/A - Med Ordered
[2023-06-08] MEDS: Acetaminophen 325 MG TABLET 650 MG PO (21:14)
[2023-06-08] MEDS: Apixaban 5 MG TABLET PO (21:15)
[2023-06-08] MEDS: Atorvastatin Calcium 80 MG TABLET PO (21:15)
--- NOTE | 2023-06-08 21:52 | PHA.MEDREC ---
Pharmacy Consult ? Medication Reconciliation Pharmacy has completed the medication reconciliation.
[2023-06-08 22:14] VITALS: BP 173/53; RESP 10; TEMP 36.8; O2SAT 96
[2023-06-09] VITALS (7 sets, daily range): BP systolic 104–143; BP diastolic 53–61; PULSE 61–74; RESP 15–20; TEMP 36.3–37.1; O2SAT 94–98
[2023-06-09 01:45] LABS: Appearance Urine Clear; Color Urine Yellow; Glucose Urine UA Negative (Negative); Leukocyte Esterase Urine Trace (Negative); Nitrite Urine Negative (Negative); PH 5.5 (5.0-9.0); Specific Gravity - Urine >= 1.030 (1.005-1.025); UMIC TRIGGER UACC YES; Urine Blood Negative (Negative); Urine Ketones Negative (Negative); Urine Protein Negative (Neg-Trace)
[2023-06-09 01:48] LABS: Bacteria Urine None Seen (None Seen); Hyaline Casts Urine 0-2 /LPF (0-2); RBC Urine 0-2 /HPF (0-2); Squamous Epithelial Cell Urine 0-2 /HPF (0-2); UACC Culture Trigger YES
--- NOTE | 2023-06-09 01:56 | PC.NURSE ---
Took over care from BRO Hudson at 23:00, pt is alert to name and place, pt able speak slowly but able to communicate needs, pt repsoiton for comfort, able to swallow water, pt state not cold fluid due to it hurting her teeth, pt education on stroke symptoms and how to use call calderon .
[2023-06-09 07:04] LABS: Hematocrit 34.3 % (37.0-47.0); Hemoglobin 10.7 g/dl (12.0-16.0); Mean Corpuscular HGB Conc 31.2 g/dl (31.0-35.0); Mean Corpuscular Hemoglobin 24.7 pg (27.0-33.0); Mean Platelet Volume 12.5 fL (9.4-12.3); Red Blood Count 4.34 X10*6/uL (4.20-5.50); Red Cell Distribution Width 17.4 % (11.0-16.0)
[2023-06-09 07:09] LABS: Platelet Count 269 X10*3/uL (160-400); White Blood Count 9.9 X10*3/uL (4.8-10.8)
[2023-06-09 07:19] LABS: Anion Gap 14 (12-20); Blood Urea Nitrogen 15 mg/dL (9-16); Calcium 9.4 mg/dL (8.4-10.2); Carbon Dioxide 25 mmol/L (22-29); Chloride 107 mmol/L (96-108); Cholesterol 129 mg/dL (<200); Creatinine Clr Calc Pharmacy 59.3; Estimated Glomerular Filt Rate > 60; Glucose Fasting 110 mg/dL (60-99); HDL Cholesterol 52 mg/dL (>40); LDL Cholesterol Calculated 59 mg/dL (<100); Potassium 4.6 mmol/L (3.3-5.1); Sodium 141 mmol/L (135-145); Triglycerides 90 mg/dL (<150)
--- NOTE | 2023-06-09 08:28 | HO.PM.IMPN ---
Subjective Subjective Date of Service: 06/09/23 Interval History: f/u recurrent strokes, seems to be back to baseline Physical Exam Vital Signs: Vital Signs: Last Vital Signs Temp 98.2 F 06/08/23 22:14 Pulse 63 06/09/23 05:55 Resp 15 06/09/23 05:55 BP 118/60 06/09/23 05:55 Pulse Ox 96 06/09/23 05:55 O2 Del Method Room Air 06/09/23 05:55 BMI result Body Mass Index 26.4 Const: Other: General: AO X 3, no acute distress Resp: CTA bilateral, no accessory muscles used CVS: S1,S2,RRR GI: soft, non tender, non distended Neuro: right facial droop, right hemiparesis 4-/5--chronic Psych: appropriate affect, appropriate insight Objective Data Active Medications Acetaminophen (Acetaminophen 325 Mg Tablet) 650 mg PO Q6H PRN PRN Reason: Pain, Mild (Pain Scale 1-3) Last Admin: 06/08/23 21:14 Dose: 650 mg Documented By: OMKAR Albuterol Sulfate (Albuterol Sulfate 90 Mcg 8 Gm Inhaler) 1 puff INHALE RQID PRN PRN Reason: Shortness Of Breath Or Wheezing Amlodipine Besylate (Amlodipine Besylate 5 Mg Tablet) 5 mg PO DAILY [facility]; Protocol Apixaban (Apixaban 5 Mg Tablet) 5 mg PO BID [facility] Last Admin: 06/08/23 21:15 Dose: 5 mg Documented By: OMKAR Aspirin (Aspirin Enteric Coated 81 Mg Tablet.) 81 mg PO DAILY [facility] Atorvastatin Calcium (Atorvastatin Calcium 80 Mg Tablet) 80 mg PO BEDTIME [facility] Last Admin: 06/08/23 21:15 Dose: 80 mg Documented By: OMKAR Dextrose (Dextrose 50 % 25 Gm/50 Ml Syringe) 25 gm IVPUSH Q15M PRN; Protocol PRN Reason: per Hypoglycemia Standing Ord. Furosemide (Furosemide 20 Mg Tablet) 20 mg PO DAILY [facility]; Protocol Glucose (Glucose Gel 15 Gm Gel..Gram.) 15 gm PO Q15M PRN; Protocol PRN Reason: per Hypoglycemia Standing Ord. Insulin Human Lispro (Insulin Lispro 100 Unit/Ml 3 Ml Vial) 0 unit SUBCUT QIDACHS [facility]; Protocol Last Admin: 06/09/23 07:57 Dose: Not Given Documented By: DL Non-Admin Reason: No Insulin Coverage Loratadine (Loratadine 10 Mg Tablet) 10 mg PO BEDTIME [facility] Losartan Potassium (Losartan Potassium 25 Mg Tablet) 12.5 mg PO DAILY [facility]; Protocol Multivitamins/Vitamin C (Multivitamin Tablet) 1 tab PO DAILY [facility] Non-Formulary Medication (Acarbose) 50 mg PO TID [facility] Ondansetron HCl (Ondansetron Hcl 4 Mg/2 Ml Vial) 4 mg IVPUSH Q8H PRN PRN Reason: Nausea and Vomiting Risperidone (Risperidone 1 Mg Tablet) 1 mg PO BEDTIME [facility] Sertraline HCl (Sertraline Hcl 100 Mg Tablet) 200 mg PO DAILY [facility] Ursodiol (Ursodiol 300 Mg Capsule) 300 mg PO TID [facility] Vitamin D (Cholecalciferol (Vitamin D3) 25 Mcg Tablet) 50 mcg PO DAILY [facility] Labs 06/09/23 06:38 06/09/23 06:38 Labs: Laboratory Results - last 24 hr 06/08/23 06/09/23 06/09/23 18:09 01:38 06:38 MCV 77.9 L 79.0 L MCH 24.1 L 24.7 L MCHC 30.9 L 31.2 RDW 17.4 H 17.4 H Plt Count 267 D 269 MPV 12.5 H 12.5 H Immature Gran % (Auto) 0.5 H Neut % (Auto) 49.9 Lymph % (Auto) 36.2 [place] % (Auto) 7.4 Eos % (Auto) 5.3 H Baso % (Auto) 0.7 Lymph # (Auto) 2.2 [place] # (Auto) 0.5 Eos # (Auto) 0.3 Baso # (Auto) 0.0 Abs Immat Gran (auto) 0.03 Absolute Neuts (auto) 3.0 Absolute Nucleated RBC 0.000 0.000 Nucleated RBC % (auto) 0.0 0.0 Smear Tech's Comments VERIFIED PT 12.8 INR 1.1 APTT 35.7 Anion Gap 14 14 Estim Creat Clear Calc 58.3 59.3 Estimated GFR > 60 > 60 Random Glucose 92 Fasting Glucose 110 H Calcium 9.4 9.4 Magnesium 1.7 Total Bilirubin 0.2 Direct Bilirubin < 0.2 AST 41 H ALT 35 H Alkaline Phosphatase 268 H Total Protein 7.6 Albumin 3.4 L Triglycerides 90 Cholesterol 129 LDL Cholesterol, Calc 59 HDL Cholesterol 52 Urine Color Yellow Urine Appearance Clear Urine pH 5.5 Ur Specific [place] >= 1.030 H Urine Protein Negative Urine Glucose (UA) Negative Urine Ketones Negative Urine Blood Negative Urine Nitrite Negative Ur Leukocyte Esterase Trace H Urine RBC 0-2 Urine WBC 11-20 H Ur Squamous Epith Cells 0-2 Urine Bacteria None Seen Hyaline Casts 0-2 Assessment and Plan (1) Acute CVA (cerebrovascular accident): Status: Acute Plan 62F PMH DM, mild intermittent asthma, htn, diabetic polyneuropathy, hld, GERD, 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), and right sided facial droop recurrent acute cva eliquis, asa, statin pt,ot,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
[2023-06-09] MEDS: amLODIPine Besylate 5 MG TABLET PO (08:39)
[2023-06-09] MEDS: Aspirin Enteric Coated 81 MG TABLET.DR PO (08:40)
[2023-06-09] MEDS: Cholecalciferol (Vitamin D3) 25 MCG TABLET 50 MCG PO (08:40)
[2023-06-09] MEDS: Multivitamin TABLET 1 TAB PO (08:40)
[2023-06-09] MEDS: Apixaban 5 MG TABLET PO ×2 (08:40→21:55)
[2023-06-09] MEDS: Losartan Potassium 25 MG TABLET 12.5 MG PO (08:40)
[2023-06-09] MEDS: Furosemide 20 MG TABLET PO (08:49)
[2023-06-09 09:10] LABS: Glucose, Whole Blood 101 mg/dL (60-115)
[2023-06-09] MEDS: UrsodioL 300 MG CAPSULE PO ×3 (09:29→21:55)
[2023-06-09] MEDS: Sertraline HCL 100 MG TABLET 200 MG PO (09:29)
[2023-06-09 13:18] LABS: Glucose, Whole Blood 157 mg/dL (60-115)
[2023-06-09] MEDS: Insulin Lispro 100 UNIT/ML 3 ML VIAL SUBCUT ×3 (13:21→21:55)
--- NOTE | 2023-06-09 13:23 | PC.NURSE ---
patient medicated with insulin per MAR, sitting up and eating her lunch, respirations equal and unlabored.
--- NOTE | 2023-06-09 13:50 | P.CNNE_ITS ---
History of Present Illness Data of Consult Service Date: 06/09/23 Primary Care Provider: Ludy Alonso MD [facility] Reason for consult: Stroke 62 years old woman with multiple bilateral ischemic and atherothrombotic ischemic infarctions and intracranial atherosclerotic disease has been admitted to hospital multiple times and last time was advised to take anticoagulation with baby aspirin. She came to hospital again with fluctuating status of right- sided weakness or worsening of right-sided facial droop. Initial CT and CTA imaging did not reveal any new finding. There was no sign of any seizure. Review of Systems 2 Review of Systems: No recent cold or flu-like illness PMFSH Past Medical History Medical History History of CVA (cerebrovascular accident) Dysphagia Hypertension Hypertensive urgency Cervical osteoarthritis Osteoarthritis of right glenohumeral joint Shoulder pain, right BOB positive CVA (cerebral vascular accident) HTN (hypertension) Primary biliary cholangitis Fatty liver disease, nonalcoholic History of umbilical hernia Postural hypotension Sjogrens syndrome GERD (gastroesophageal reflux disease) History of sleep apnea Asthma Subclinical hypothyroidism Hypertension Dyslipidemia Diabetic retinopathy associated with type 2 diabetes mellitus Diabetic polyneuropathy associated with type 2 diabetes mellitus Hypoglycemia after GI (gastrointestinal) surgery Diabetes type 2, uncontrolled Family History Family History Father ME (myocardial infarction) Diabetes mellitus Mother Diabetes mellitus CVA (cerebral vascular accident) Maternal Grandmother Stomach cancer Sister Hemorrhagic cerebrovascular accident (CVA) Surgical History Surgical History Hx of dilation and curettage Hx of tonsillectomy History of laparoscopic appendectomy History of carpal tunnel release Hx of colonoscopy History of esophagogastroduodenoscopy (EGD) History of partial hysterectomy Hx of section Hx of gastric bypass Social History Social History Household Members: Significant Other Housing: House Are you a primary prompt care rn to a significant other at home: No Do you presently have visiting nurse or other home services: Yes Alcohol intake: never Patient Tobacco Use Status: Never used Tobacco Smoked in Last 30 Days: No e-Cigarette/Vaping Use: Never Used Second Hand Smoke Exposure: No Use of substances other than those prescribed or required for medical reasons: No Advance Directives: Yes Advance Directives on File: Yes Advance Directives Date on File: 03/07/23 Nutrition Risks: Dental problems service: No Current occupational status: disabled Cognitive needs: Yes (wheelchait) Hearing needs: No Vision needs: No Meds Allergies Allergy/AdvReac Type Severity Reaction Status Date / Time Latex, Natural Rubber Allergy Intermediate Rash Verified 04/20/23 11:39 Sulfa (Sulfonamide AdvReac Intermediate Stomach Verified 04/20/23 11:39 Antibiotics) Upset [SULFA (SULFONAMIDE ANTIBIOTICS)] Morphine Sulfate AdvReac Intermediate Abdominal Uncoded 04/20/23 11:39 Pain Active Medications: Current Medications Acetaminophen (Acetaminophen 325 Mg Tablet) 650 mg PO Q6H PRN PRN Reason: Pain, Mild (Pain Scale 1-3) Last Admin: 06/08/23 21:14 Dose: 650 mg Albuterol Sulfate (Albuterol Sulfate 90 Mcg 8 Gm Inhaler) 1 puff INHALE RQID PRN PRN Reason: Shortness Of Breath Or Wheezing Amlodipine Besylate (Amlodipine Besylate 5 Mg Tablet) 5 mg PO DAILY [facility]; Protocol Last Admin: 06/09/23 08:39 Dose: 5 mg Apixaban (Apixaban 5 Mg Tablet) 5 mg PO BID [facility] Last Admin: 06/09/23 08:40 Dose: 5 mg Aspirin (Aspirin Enteric Coated 81 Mg Tablet.Dr) 81 mg PO DAILY [facility] Last Admin: 06/09/23 08:40 Dose: 81 mg Atorvastatin Calcium (Atorvastatin Calcium 80 Mg Tablet) 80 mg PO BEDTIME [facility] Last Admin: 06/08/23 21:15 Dose: 80 mg Dextrose (Dextrose 50 % 25 Gm/50 Ml Syringe) 25 gm IVPUSH Q15M PRN; Protocol PRN Reason: per Hypoglycemia Standing Ord. Furosemide (Furosemide 20 Mg Tablet) 20 mg PO DAILY [facility]; Protocol Last Admin: 06/09/23 08:49 Dose: 20 mg Glucose (Glucose Gel 15 Gm Gel..Gram.) 15 gm PO Q15M PRN; Protocol PRN Reason: per Hypoglycemia Standing Ord. Insulin Human Lispro (Insulin Lispro 100 Unit/Ml 3 Ml Vial) 0 unit SUBCUT QIDACHS [facility]; Protocol Last Admin: 06/09/23 13:21 Dose: 2 unit Loratadine (Loratadine 10 Mg Tablet) 10 mg PO BEDTIME [facility] Losartan Potassium (Losartan Potassium 25 Mg Tablet) 12.5 mg PO DAILY [facility]; Protocol Last Admin: 06/09/23 08:40 Dose: 12.5 mg Multivitamins/Vitamin C (Multivitamin Tablet) 1 tab PO DAILY [facility] Last Admin: 06/09/23 08:40 Dose: 1 tab Non-Formulary Medication (Acarbose) 50 mg PO TID [facility] Ondansetron HCl (Ondansetron Hcl 4 Mg/2 Ml Vial) 4 mg IVPUSH Q8H PRN PRN Reason: Nausea and Vomiting Risperidone (Risperidone 1 Mg Tablet) 1 mg PO BEDTIME [facility] Sertraline HCl (Sertraline Hcl 100 Mg Tablet) 200 mg PO DAILY [facility] Last Admin: 06/09/23 09:29 Dose: 200 mg Ursodiol (Ursodiol 300 Mg Capsule) 300 mg PO TID [facility] Last Admin: 06/09/23 09:29 Dose: 300 mg Vitamin D (Cholecalciferol (Vitamin D3) 25 Mcg Tablet) 50 mcg PO DAILY [facility] Last Admin: 06/09/23 08:40 Dose: 50 mcg Home Medications Medication Instructions Recorded Confirmed Last Taken Type albuterol sulfate 90 mcg/actuation 1 inh inhalation QID PRN Shortness 04/28/20 06/08/23 03/06/23 History aerosol inhaler Of Breath Or Wheezing polyethylene glycol 3350 17 gram 17 g PO DAILY PRN constipation 10/25/22 06/08/23 10/25/22 History oral powder packet (Purelax) metformin 500 mg tablet 500 mg PO BID 01/19/23 06/08/23 03/06/23 History peg [id number] 1 2 drp ophthalmic-Right Q4H PRN Dry 04/22/23 06/08/23 Unknown History %-0.2 %-0.2 % eye drops Eyes (Artificial Tears ([id number])) Physical Exam 2 Vital Signs: Vital Signs: Last Vital Signs Temp 97.6 F 06/09/23 08:34 Pulse 73 06/09/23 08:59 Resp 20 06/09/23 08:34 BP 104/59 L 06/09/23 08:59 Pulse Ox 97 06/09/23 08:59 O2 Del Method Room Air 06/09/23 08:34 BMI result Body Mass Index 26.4 Neuro: Other: She is alert and awake with normal spontaneity of speech fluency comprehension and flat affect. There is mild right-sided facial flatness. Visual carrillo are full. There is no obvious focal weakness. She was eating her me food with both hands. Plantars were flexors. There was no neglect. Speech was normal. Results Labs 06/09/23 06:38 06/09/23 06:38 Labs: Short CBC 06/08/23 06/09/23 Range/Units 18:09 06:38 WBC 6.1 9.9 (4.8-10.8) X10*3/uL Hgb 11.0 L 10.7 L (12.0-16.0) g/dl Hct 35.6 L 34.3 L (37.0-47.0) % Plt Count 267 D 269 (160-400) X10*3/uL BMP 06/08/23 06/09/23 18:09 06:38 Sodium 137 141 Potassium 5.0 D 4.6 Chloride 104 107 Carbon Dioxide 24 25 BUN 16 15 Creatinine 0.63 0.62 Calcium 9.4 9.4 Liver Function 06/08/23 Range/Units 18:09 Total Bilirubin 0.2 (0.0-1.0) mg/dL Direct Bilirubin < 0.2 (0.0-0.5) mg/dL AST 41 H (5-31) U/L ALT 35 H (0-31) U/L Alkaline Phosphatase 268 H (39-117) U/L Albumin 3.4 L (3.5-5.0) g/dL Urine 06/09/23 Range/Units 01:38 Urine Color Yellow Urine Appearance Clear Urine pH 5.5 (5.0-9.0) Ur Specific [place] >= 1.030 H (1.005-1.025) Urine Protein Negative (Neg-Trace) mg/dL Urine Glucose (UA) Negative (Negative) mg/dL CT and CTA of brain and neck did not reveal any new finding. Assessment and Plan (1) Recurrent cerebrovascular accidents (CVAs): Status: Acute 62 years old woman with multiple bilateral ischemic infarctions associated with intracranial atherosclerotic disease. She had multiple admissions in hospital. Like a stated last time, anticoagulation with baby aspirin daily is the maximum that we could treat her with statin and blood pressure control. Her family and daughter should be educated that there is very little that we could do more than this to prevent further stroke. Blood pressure should be managed but hypotension should be avoided. Procedures Date of Service Date of Service: 06/09/23
--- NOTE | 2023-06-09 14:06 | MHC.SL.SWA ---
Speech Pathologist Impression: Risk of Aspiration, Oralpharyngeal Dysphagia Risk of Aspiration Due to: Medically Fragile Neurological Condition History of Pneumonia Dysphasia Diet Status: DOWNGRADE liquids to NTL Liquid Consistency and Strategies for Safe Swallow: Liquid Intake Recommendation: NECTAR THICK Liquid Intake Strategies: Small sips, slow pace, one sip at a time Solid Food Consistency: Dietary Recommendations: Chopped/Advanced (NDD3) Additional Modifications to Solid Foods: Moisten food with sauces/gravies, chew food well, double swallow to clear oral residue, alternate bites/sips Oral Medication Intake: Crushed with Puree Please contact the pharmacy regarding appropriate crushable or liquid drug formulations that are available whenever modified delivery is recommended. Supervision While Eating and Drinking for Safe Swallow: Total Supervision Foods to Avoid: Hard tough to chew solids; dry, crunchy, or sticky foods; mixed textures Swallowing Recommended Treatments: Recommendation for Speech: Further Testing Needed Speech Therapy through Rehab Facility Comment: Recommend continue ST at next level of care (rehab) for dysphagia and cognition/aphasia. Slot Floorman Clinican/Clinical Fellow: Yes: Elsa Moore Supervisory Statement: I have reviewed and agree with the student/clinical fellow's documentation: Yes Speech Language Pathologist: Norma Velazquez M.A., CCC-GEAR REPAIRER
--- NOTE | 2023-06-09 15:49 | MHC.CM.PN ---
BERNABE CALLED PTS DAUGHTER, ROSALBA [phone] SHE CONFIRMS THE PT LIVES WITH HER AND HAS DAILY [employer] PT IS BED/CHAIR BOUND AT [place] SHE WAS ACTIVE WITH [id number] RECENTLY, UNCLEAR IF THEY HAVE DISCHARGED BERNABE SENT A REFERRAL TO [facility] TO DETERMINE IF PT WAS DISCHARGED FROM SERVICES PT HAS A WHEEL CHAIR AND HOSPITAL BED AT HOME HCP AND PCP ON FILE AND VERIFIED IMM DELIVERED RSOALBA IS AWARE PT WILL LIKELY BE DISCHARGED TOMORROW SHE STATED SHE DID NOT WANT PT TO LEAVE UNTIL SHE HAD AN APPT WITH THE SPECIALIST SHE WAS REFERRED TO IN [place] PER STROKE SPECIALIST NOTES, SHE WAS REFERRED TO DR PARKER AT [facility] BERNABE CALLED DR PARKER'S OFFICE [phone] AND WAS INFORMED THEY WOULD SCHEDULE AN APPT AND CONTACT PT DIRECTLY CM REQUESTED THEY CALL ROSALBA KIDD CALLED ROSALBA BACK AND SHE INDICATED [facility] HAD CONTACTED HER WITH AN APPT DATE AND TIME PT WILL SEE DR PARKER ON JULY 06, 2023 AT 1000 HOURS ROSALBA STATED SHE IS COMFORTABLE WITH PT DISCHARGING NOW THAT SHE HAS THE APPT PT WILL DC HOME TOMORROW WITH RESUMPTION OF SERVICES SHE WILL NEED BLS TRANSPORT
[2023-06-09 16:42] LABS: Glucose, Whole Blood 335 mg/dL (60-115)
[2023-06-09 21:42] LABS: Glucose, Whole Blood 207 mg/dL (60-115)
[2023-06-09] MEDS: Atorvastatin Calcium 80 MG TABLET PO (21:55)
[2023-06-09] MEDS: risperiDONE 1 MG TABLET PO (21:55)
[2023-06-09] MEDS: Loratadine 10 MG TABLET PO (21:55)
[2023-06-10 03:32] VITALS: BP 144/58; PULSE 65; RESP 18; TEMP 36.6; O2SAT 96
[2023-06-10 07:42] LABS: Glucose, Whole Blood 134 mg/dL (60-115)
[2023-06-10 07:48] VITALS: BP 111/53; PULSE 68; RESP 16; TEMP 36.2; O2SAT 96
[2023-06-10] MEDS: Apixaban 5 MG TABLET PO (09:13)
[2023-06-10] MEDS: Sertraline HCL 100 MG TABLET 200 MG PO (09:13)
[2023-06-10] MEDS: Multivitamin TABLET 1 TAB PO (09:13)
[2023-06-10] MEDS: UrsodioL 300 MG CAPSULE PO (09:13)
[2023-06-10] MEDS: Aspirin Enteric Coated 81 MG TABLET.DR PO (09:13)
[2023-06-10] MEDS: Losartan Potassium 25 MG TABLET 12.5 MG PO (09:13)
[2023-06-10] MEDS: amLODIPine Besylate 5 MG TABLET PO (09:13)
[2023-06-10] MEDS: Cholecalciferol (Vitamin D3) 25 MCG TABLET 50 MCG PO (09:13)
[2023-06-10] MEDS: Furosemide 20 MG TABLET PO (09:13)
--- NOTE | 2023-06-10 10:58 | P.DS_ITS ---
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 daughter does not know exactly when it started, at some point on day of presentation, noted to have worsening right sided facial droop and weakness, falling to right side. patient most recently put on eliquis and asa, has known bilateral intracranial carotid stenosis and right extracranial vertebral artery stenosis and intact intracranial vertebral basilar system. is currently in process of being referred to specialist in [place] for possible surgical intervention. in ED CTA head and neck with no acute cva or occlusion. Hospital course: Patient presented yet again with new stroke symptoms, however CT head and CTA of head and neck did not revealed discrete new stroke. She was evaluated by Neurology with reocmmendation as follow: She had multiple admissions in hospital. Like a stated last time, anticoagulation with baby aspirin daily is the maximum that we could treat her with statin and blood pressure control. Her family and daughter should be educated that there is very little that we could do more than this to prevent further stroke. Blood pressure should be managed but hypotension should be avoided. She has a follow up appointment with Dr Johnson at [facility] for July 06 at 10 Time Attestation Discharge coordination time: Greater than 30 minutes Quality: Safe Use of Opioids Does Pt have an Active Cancer Diagnosis on the Problem List?: No Quality: Stroke Does the patient have a stroke diagnosis?: Yes Reason for No Anti-thrombotic at DC: N/A - Med Ordered Reason for No Anticoagulant at DC: N/A - Med Ordered Reason Not Initiating IV-Tpa: Contraindicated Reason for No Anti-thrombotic by Day Two: N/A - Med Ordered Reason for No Statin at DC: N/A - Med Ordered Physical Exam Vital Signs: Vital Signs: Last Vital Signs Temp 97.1 F 06/10/23 07:48 Pulse 68 06/10/23 07:48 Resp 16 06/10/23 07:48 BP 111/53 L 06/10/23 07:48 Pulse Ox 96 06/10/23 07:48 O2 Del Method Room Air 06/10/23 07:48 BMI result Body Mass Index 26.4 DS: Data Data Completed and Pending Labs on day of discharge: Laboratory Results - last 24 hr 06/09/23 06/09/23 06/09/23 13:14 16:33 20:35 POC Glucose 157 H 335 H 207 H 06/10/23 07:30 POC Glucose 134 H Discharge Plan Discharge Anticipated Discharge Date/Time: 06/10/23 10:55 Patient Disposition: Home Health Service Discharge Diagnosis: recurrent CVA Referrals: [facility] [Outside] - 1 Week Po,Ludy Minaya MD [Primary Care Provider] - 1 Week Discharge Medications: Continued (DME) Transport wheelchair See Rx Instructions .Route .MEDSUPPLY Qty: 1 0RF Rx Instructions: As directed multivitamin Tablet 1 tab PO DAILY 90 Days Qty: 90 3RF (DME) lancets [FreeStyle Lancets] 28 gauge misc See Rx Instructions .ROUTE .MEDSUPPLY Qty: 100 3RF Rx Instructions: As directed check the blood sugar once a day (DME) adult diapers size small petite See Rx Instructions .Route .MEDSUPPLY Qty: 90 12RF Rx Instructions: As directed (DME) FreeStyle Lite Strips Strip See Rx Instructions .ROUTE .MEDSUPPLY Qty: 100 11RF Rx Instructions: As directed 3 x/day (DME) Adult pull ups medium package See Rx Instructions .Route .MEDSUPPLY Qty: 90 11RF Rx Instructions: 8 Per day (PRN), 11 refills for 12 months. (DME) stair lift See Rx Instructions .Route .MEDSUPPLY Qty: 1 0RF Rx Instructions: As directed (DME) disposable gloves [Disposable Latex-Free Gloves] Misc See Rx Instructions .Route Qty: 1000 3RF Rx Instructions: As directed sertraline 100 mg tablet 200 mg PO DAILY 30 Days Qty: 180 1RF loratadine 10 mg tablet 10 mg PO BEDTIME Qty: 90 0RF cholecalciferol (vitamin D3) 50 mcg (2,000 unit) capsule 50 mcg PO DAILY Qty: 90 0RF ursodiol 250 mg tablet 250 mg PO TID Qty: 270 0RF risperidone 1 mg tablet 1 mg PO BEDTIME Qty: 90 1RF Eliquis 5 mg tablet 5 mg PO BID Qty: 180 1RF furosemide [Lasix] 20 mg tablet 20 mg PO DAILY Qty: 90 0RF metformin 500 mg tablet 500 mg PO BID amlodipine 5 mg Tablet 5 mg PO DAILY Qty: 90 0RF Hold Instructions: Resume on 04/17/23. Protocol: Hold for SBP< HOLD for SBP < : 90 losartan 25 mg Tablet 12.5 mg PO DAILY Qty: 90 0RF Protocol: Hold for SBP< HOLD for SBP < : 90 atorvastatin 40 mg tablet 80 mg PO BEDTIME Qty: 90 0RF polyethylene glycol 3350 [Purelax] 17 gram powder in packet 17 g PO DAILY PRN (Reason: constipation) Artificial Tears([id number]) 1-0.2-0.2 % drops 2 drp ophthalmic-Right Q4H PRN (Reason: Dry Eyes) (DME) pen needle, diabetic [Comfort EZ Pen [place]] 31 gauge x 3/16 needle See Rx Instructions .Route Qty: 100 3RF Rx Instructions: As directed (DME) MOUTH GUARD See Rx Instructions .Route .MEDSUPPLY Qty: 1 0RF Rx Instructions: As directed (DME) Walker with seat and wheels See Rx Instructions .Route .MEDSUPPLY Qty: 1 0RF Rx Instructions: As directed (DME) WIPES See Rx Instructions .Route .MEDSUPPLY Qty: 1 12RF Rx Instructions: As directed aspirin 81 mg tablet,delayed release (DR/EC) 81 mg PO DAILY Qty: 90 3RF acarbose 50 mg tablet 50 mg PO TID Qty: 90 4RF albuterol sulfate 90 mcg/actuation HFA aerosol inhaler 1 inh inhalation QID PRN (Reason: Shortness Of Breath Or Wheezing) Discharge Orders: Discharge Order (Routine); Ordered 06/10/23 Ordered By: [facility] Diet: Diabetic diet Activity on Discharge: As tolerated Stand Alone Forms: Patient Portal Discharge page Care Plan Goals: Stroke prevention Health Concerns: recurrent strokes Plan of Treatment: continue taking all your medication as directed, Follow up with Dr Johnson at [facility] July 06 at 10 am Assessment: as above
--- NOTE | 2023-06-10 11:12 | MHC.CM.PN ---
Patient has been medically cleared for dc to home today, with services; [facility] has been notified of today's dc.
[2023-06-10 12:00] VITALS: BP 114/49; PULSE 74; RESP 16; TEMP 36.4; O2SAT 94
[2023-06-10 12:00] LABS: Glucose, Whole Blood 258 mg/dL (60-115)
--- NOTE | 2023-06-10 12:07 | MHC.CM.PN ---
CM spoke with Daughter/Maddie at listed # and confirmed Patient's address with her and informed Maddie that Patient will dc to home today at 3:[address] [facility].
[2023-06-10] MEDS: Insulin Lispro 100 UNIT/ML 3 ML VIAL SUBCUT (12:45)
== END 2023-06-10 15:44 | disposition home health service (06) | DRG 45 ==
LOC: HO.ED 22:12 → HO.EDOVER 22:47 → HO.IMC 06-09 14:47
PROVIDERS: Admitting Provider Internal Medicine; Emergency Provider Emergency Medicine; PCP Internal Medicine; Visit Provider Internal Medicine
DX: I63.9 Cerebral infarction, unspecified (principal); E11.42 Type 2 diabetes mellitus with diabetic polyneuropathy; I69.351 Hemiplegia and hemiparesis following cerebral infarction affecting right dominant side; R29.810 Facial weakness; R29.708 NIHSS score 8; E78.5 Hyperlipidemia, unspecified; J45.20 Mild intermittent asthma, uncomplicated; I69.354 Hemiplegia and hemiparesis following cerebral infarction affecting left non-dominant side; Z91.040 Latex allergy status; Z79.01 Long term (current) use of anticoagulants; Z79.82 Long term (current) use of aspirin; Z79.84 Long term (current) use of oral hypoglycemic drugs; Z79.899 Other long term (current) drug therapy
CPT/HCPCS: 36415; 70450; 70496; 70498; 80048; 80061; 80076; 81001; 82947; 83735; 84484; 85025; 85027; 85610; 85730; 87086; 92523; 93005; 97162; 97166; 99285; Q9967

== ENCOUNTER → 2023-06-08 16:50 | Outpatient (BNV) | payer OTHER, SELFPAY | PROVIDERS: Admitting Provider Internal Medicine; Emergency Provider Emergency Medicine; PCP Internal Medicine; Visit Provider Internal Medicine Cardiovascular Disease | DX: I63.9 Cerebral infarction, unspecified (principal) | CPT/HCPCS: 93010 ==

== ENCOUNTER → 2023-06-08 18:23 | Outpatient (BNV) | payer OTHER, SELFPAY | PROVIDERS: Emergency Provider Emergency Medicine; PCP Internal Medicine; Visit Provider Internal Medicine | DX: I63.9 Cerebral infarction, unspecified (principal) | CPT/HCPCS: 99223; 99232; 99239 ==

== ENCOUNTER 2023-06-15 15:55 | Emergency (ER) | payer OTHER, SELFPAY ==
--- NOTE | ~2023-06-15 | CT_ITS ---
EXAMINATION: Chest. CT brain without contrast. Clinical indications: Cough. Recent stroke. COMPARISON: CT brain 06/08/2023. TECHNIQUE: 5 mm thin axial and reformatted 2 minutes thin sagittal and coronal images of brain were obtained. DLP 482. This CT examination was performed using dose optimization technique as appropriate, variously including the following: Automated exposure control Adjustment of MA and/or KV according to patient size(this includes techniques or standardized protocols for targeted exams where dose is matched to indication/reason for exam; extremities or head. Use of iterative reconstruction techniques. Chest one view. FINDINGS: Brain: There is no acute intra-axial, extra-axial bleed, masses or midline shift. There is no acute infarction evolution. There is no edema. There is punctate hypodensities in the right thalamus, left centrum semiovale and midline liana from chronic lacunar infarction. The lateral ventricles are symmetrical in size and configuration without enlargement. The alvarez to white matter differentiation is maintained normal. Bone windows reveal no calvarial abnormality. There is no scalp soft tissue abnormality. Bilateral paranasal sinuses and mastoid air cells are well-aerated. There is moderate mucoperiosteal thickening bilateral maxillary, posterior ethmoid sinuses. Visualized optic globe, optic nerves and the bony orbits are normal. The mastoid sinuses are clear. CHEST: The lungs are well-expanded and clear of acute pneumonic process. Heart size and pulmonary vascularity is normal. No gross bony abnormality seen. CT/CT head/brain wo IV con IMPRESSION: 1. No acute intracranial process seen. 2. Chronic bilateral maxillary and posterior ethmoid sinus inflammatory changes. 3. There is no acute cardiopulmonary process seen.
[2023-06-15 16:59] VITALS: BP 164/70; PULSE 60; O2SAT 97
--- NOTE | 2023-06-15 17:03 | ECG_ITS ---
Test Reason : Hypertension Blood Pressure : / mmHG Vent. Rate : 062 BPM Atrial Rate : 062 BPM P-R Int : 174 ms QRS Dur : 064 ms QT Int : 428 ms P-R-T Axes : 041 -03 074 degrees QTc Int : 434 ms Normal sinus rhythm Minimal voltage criteria for LVH, may be normal variant ( R in aVL ) Borderline ECG When compared with ECG of 08-JUN-2023 17:31, No significant change was found Referred By: Karin Macedo Electronically Signed By:GIGI HOPPER
[2023-06-15 17:08] VITALS: BP 182/60; PULSE 61; RESP 18; TEMP 36.8; O2SAT 97; BMI 28.1
--- NOTE | 2023-06-15 17:11 | ED_ITS ---
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 Otherwise, she denies any abdominal pain or urinary symptoms. Related Data Home Medications Medication Instructions Recorded Confirmed albuterol sulfate 90 mcg/actuation 1 inh inhalation QID PRN Shortness 04/28/20 06/08/23 aerosol inhaler Of Breath Or Wheezing polyethylene glycol 3350 17 gram 17 g PO DAILY PRN constipation 10/25/22 06/08/23 oral powder packet (Purelax) metformin 500 mg tablet 500 mg PO BID 01/19/23 06/08/23 peg [id number] 1 2 drp ophthalmic-Right Q4H PRN Dry 04/22/23 06/08/23 %-0.2 %-0.2 % eye drops Eyes (Artificial Tears ([id number])) Previous Rx's Medication Instructions Recorded pen needle, diabetic 31 gauge x #100 ea 02/24/2109/22 (Comfort EZ Pen [place]) Transport wheelchair #1 ea 08/11/21 multivitamin 1 tab PO DAILY 90 days #90 tabs 09/13/21 Walker with seat and wheels #1 ea 09/28/21 lancets 28 gauge (FreeStyle #100 ea 12/28/21 Lancets) MOUTH GUARD #1 ea 06/08/22 adult diapers size small petite #90 ea 08/03/22 blood sugar diagnostic (FreeStyle #100 ea 11/28/22 Lite Strips) Adult pull ups #90 ea 12/13/22 stair lift #1 ea 12/16/22 disposable gloves (Disposable #1,000 ea 01/03/23 Latex-Free Gloves) amlodipine 5 mg tablet 5 mg PO DAILY #90 tabs 01/21/23 losartan 25 mg tablet 12.5 mg PO DAILY #90 tabs 01/21/23 sertraline 100 mg tablet 200 mg (2 x 100 mg) PO DAILY 30 01/30/23 days #180 tabs loratadine 10 mg tablet 10 mg PO BEDTIME #90 tabs 03/15/23 WIPES #1 ea 03/28/23 acarbose 50 mg tablet 50 mg PO TID #90 tabs 03/28/23 aspirin 81 mg tablet,delayed 81 mg PO DAILY #90 tabs 03/28/23 release atorvastatin 40 mg tablet 80 mg (2 x 40 mg) PO BEDTIME #90 04/15/23 tabs cholecalciferol (vitamin D3) 50 50 mcg PO DAILY #90 caps 04/18/23 mcg (2,000 unit) capsule risperidone 1 mg tablet 1 mg PO BEDTIME #90 tabs 05/15/23 ursodiol 250 mg tablet 250 mg PO TID #270 tabs 05/15/23 apixaban 5 mg tablet (Eliquis) 5 mg PO BID #180 tabs 05/16/23 furosemide 20 mg tablet (Lasix) 20 mg PO DAILY #90 tabs 05/16/23 amoxicillin 875 mg-potassium 1 tab PO BID 5 days #10 tabs 06/15/23 clavulanate 125 mg tablet Allergies Allergy/AdvReac Type Severity Reaction Status Date / Time Latex, Natural Rubber Allergy Intermediate Rash Verified 06/15/23 17:14 Sulfa (Sulfonamide AdvReac Intermediate Stomach Verified 06/15/23 17:14 Antibiotics) Upset [SULFA (SULFONAMIDE ANTIBIOTICS)] Morphine Sulfate AdvReac Intermediate Abdominal Uncoded 04/20/23 11:39 Pain Review of Systems 2 Review of Systems: Pertinent positives and negatives as stated in HPI [facility] Past Medical History Source: nursing notes reviewed Medical History History of CVA (cerebrovascular accident) Dysphagia Hypertension Hypertensive urgency Cervical osteoarthritis Osteoarthritis of right glenohumeral joint Shoulder pain, right BOB positive CVA (cerebral vascular accident) HTN (hypertension) Primary biliary cholangitis Fatty liver disease, nonalcoholic History of umbilical hernia Postural hypotension Sjogrens syndrome GERD (gastroesophageal reflux disease) History of sleep apnea Asthma Subclinical hypothyroidism Hypertension Dyslipidemia Diabetic retinopathy associated with type 2 diabetes mellitus Diabetic polyneuropathy associated with type 2 diabetes mellitus Hypoglycemia after GI (gastrointestinal) surgery Diabetes type 2, uncontrolled Surgical History Hx of dilation and curettage Hx of tonsillectomy History of laparoscopic appendectomy History of carpal tunnel release Hx of colonoscopy History of esophagogastroduodenoscopy (EGD) History of partial hysterectomy Hx of section Hx of gastric bypass Family History Family History Father [place] (myocardial infarction) Diabetes mellitus Mother Diabetes mellitus CVA (cerebral vascular accident) Maternal Grandmother Stomach cancer Sister Hemorrhagic cerebrovascular accident (CVA) Social History Social History Household Members: Family Housing: House Are you a primary care professionals to a significant other at home: No Do you presently have visiting nurse or other home services: Yes Alcohol intake: never Patient Tobacco Use Status: Never used Tobacco e-Cigarette/Vaping Use: Never Used Second Hand Smoke Exposure: No Advance Directives: Yes Advance Directives on File: Yes Advance Directives Date on File: 03/07/23 service: No Current occupational status: disabled Cognitive needs: Yes (wheelchait) Hearing needs: No Vision needs: No Physical Exam ED Vital Signs: Vital Signs - 24 hr 06/15/23 17:08 06/15/23 19:43 Temperature 98.2 F 97.9 F Pulse Rate 61 63 Respiratory Rate 18 14 Blood Pressure 182/60 H 191/77 H Pulse Oximetry 97 97 Oxygen Delivery Method Room Air Room Air BMI result Body Mass Index 28.1 VITAL SIGNS: Reviewed. GENERAL: Well developed, well nourished, in no acute distress. HEAD: Normocephalic/atraumatic EYES: PERRLA, EOMI EARS: Ext canals without abnormality, TMs non-bulging and non-erythematous NOSE: Nares patent bilateral OROPHARYNX: no oral lesions noted, posterior pharynx clear and non-erythematous without noted tonsillar enlargement/erythema/exudates NECK: Supple, no adenopathy LUNGS: Good inspiratory effort, crackles noted in left base. SpO2<97> CARDIOVASCULAR: Regular rate and rhythm without noted murmurs, no JVD or lower extremity edema. ABDOMEN: Soft, non-tender, non-distended with bowel sounds. MUSCULOSKELETAL: No tenderness, deformities, or effusions noted on gross inspection. EXTREMITIES: No cyanosis, clubbing or edema. SKIN: Inspection of the skin reveals no rashes NEUROLOGIC: Alert and oriented x 4. Strength and sensation to light touch were grossly intact x 4, there is chronic facial asymmetry with right mouth droop, residual right-sided weakness from prior CVA. Medical Decision Making Medical Decision Making [facility] Narrative: 1715: This is a 62-year-old female with history and clinical presentation of remote CVA and presents today with high blood pressure and cough, DDX: Viral illness, pneumonia, no new focal deficits. On review of documentation/imaging studies patient was just here on 06/08 and at that time had noncontrast head CT followed up by a CT angio of head and neck without any acute changes/findings. I reviewed all investigations after lab work was completed and hematologic indices are chronically stable without leukocytosis or left shift, no thrombocytopenia and there is a stable/chronic microcytic anemia. Coagulation studies are within normal limits. Chemistry indices are grossly within normal limits there is no JANIE or electrolyte derangements, the out: Phosphatase is chronically elevated. Urinalysis appears to be chronically stable and prior urine culture from 06/09 with similar profile had no growth. Viral testing negative for COVID/influenza. Chest x-ray without infiltrates and otherwise my interpretation is in agreement with radiology's impression. Given the absence of leukocytosis and patient otherwise afebrile, no tachypnea or tachycardia, negative head CT my interpretation is that patient may be experiencing symptoms related to a viral illness that is not currently being detected by our testing methods at this time. However, given that patient is expressing a cough and on clinical exam crackles were noted in the left base will cover with Augmentin and discharged home. Differential Diagnosis Differential Diagnoses: The differential diagnosis associated with the presentation includes Please see the discussion above Admission/Observation Consideration of admission/observation: Escalation of care including admission/observation considered Please see the discussion above Lab Data [facility] Lab Attestation statement: I reviewed the patient's lab results. Please see the discussion above 06/15/23 20:32 06/15/23 20:32 Labs: Lab Results 06/15/23 06/15/23 06/15/23 Range/Units 18:03 19:53 20:32 WBC 6.5 (4.8-10.8) X10*3/uL RBC 4.72 (4.20-5.50) X10*6/uL Hgb 11.3 L (12.0-16.0) g/dl Hct 36.9 L (37.0-47.0) % MCV 78.2 L (80.0-98.0) fL MCH 23.9 L (27.0-33.0) pg MCHC 30.6 L (31.0-35.0) g/dl RDW 17.3 H (11.0-16.0) % Plt Count 295 (160-400) X10*3/uL MPV 12.3 (9.4-12.3) fL Immature Gran % (Auto) 0.6 H (0.0-0.4) % Neut % (Auto) 43.5 L (45-73) % Lymph % (Auto) 42.0 H (20-40) % [place] % (Auto) 7.1 (2-11) % Eos % (Auto) 5.9 H (0-4) % Baso % (Auto) 0.9 (0-2) % Lymph # (Auto) 2.7 (1.2-4.9) X10*3/uL [place] # (Auto) 0.5 (0.1-1.2) X10*3/uL Eos # (Auto) 0.4 (0.0-0.4) X10*3/uL Baso # (Auto) 0.1 (0.0-0.2) X10*3/uL Abs Immat Gran (auto) 0.04 H (0.00-0.03) X10*3/uL Absolute Neuts (auto) 2.8 (2.0-8.3) x10*3/uL Absolute Nucleated RBC 0.000 (0.0-0.012) X10*3/uL Nucleated RBC % (auto) 0.0 (0.0-0.2) /100WBC Smear Tech's Comments VERIFIED PT 12.7 (11.1-13.3) SEC INR 1.0 (0.9-1.1) Sodium 139 (135-145) mmol/L Potassium 4.8 (3.3-5.1) mmol/L Chloride 110 H (96-108) mmol/L Carbon Dioxide 20 L (22-29) mmol/L Anion Gap 14 (12-20) BUN 9 (9-16) mg/dL Creatinine 0.63 (0.5-1.4) mg/dL Estim Creat Clear Calc 66.6 Estimated GFR > 60 Random Glucose 83 (60-115) mg/dL Lactic Acid 1.1 (0.5-2.0) mmol/L Calcium 9.0 (8.4-10.2) mg/dL Total Bilirubin 0.1 (0.0-1.0) mg/dL AST 43 H (5-31) U/L ALT 30 (0-31) U/L Alkaline Phosphatase 279 H (39-117) U/L Total Protein 8.2 H (6.5-8.0) g/dL Albumin 3.4 L (3.5-5.0) g/dL Urine Color Yellow Urine Appearance Clear Urine pH 5.5 (5.0-9.0) Ur Specific [place] 1.015 (1.005-1.025) Urine Protein Negative (Neg-Trace) mg/dL Urine Glucose (UA) Negative (Negative) mg/dL Urine Ketones Negative (Negative) mg/dL Urine Blood Negative (Negative) Urine Nitrite Negative (Negative) Ur Leukocyte Esterase Small (1+) H (Negative) Urine RBC 0-2 (0-2) /HPF Urine WBC 11-20 H (0-5) /HPF Ur Squamous Epith Cells 0-2 (0-2) /HPF Urine Bacteria None Seen (None Seen) Hyaline Casts 0-2 (0-2) /LPF COVID-19 (JAMES) Negative (Negative) COVID-19 Clin Com See Note Influenza Type A (BRAN) Negative (Negative) Influenza Type B (BRAN) Negative (Negative) Influenza A & B Note See Note Independent Interpretation I performed an independent interpretation of an: EKG Interpretation: Normal sinus rhythm, HR-62, no STEMI, AL/QRS/QTC is within normal limits. Radiology Impression Discussion of test interpretation with radiology: I have reviewed the radiologist's reading. Radiologist Impression: Please see the discussion above External Record Review External record reviewed: Outpatient record, Prior outpatient labs and Prior outpatient radiology Chronic Conditions Patient?s care impacted by: Diabetes Critical Care Time Critical Care Time Critical Care Time: Yes Total Critical Care Time: 30 Attestation: I personally attest to this time spent taking care of the patient. Discharge Plan Discharge Clinical Impression: Lightheadedness, Hypertension, Pneumonia Patient Disposition: Home, Self-Care Instructions: Community Acquired Pneumonia (ED), DASH Eating Plan (ED), Hypertension (ED), Lightheadedness (ED) Additional Instructions: 1. Reanudar todos los medicamentos caseros seg?n lo recetado. 2. Complete el tratamiento con antibi?ticos seg?n lo prescrito. 3. Neda un seguimiento con ahmadi m?dico de atenci?n primaria en los pr?ximos 1 o 2 d?as. Regrese a la ed de emergencias si los s?ntomas empeoran. 1. Resume all home medications as prescribed. 2. Complete the course of antibiotics as prescribed. 3. Please follow-up with your primary care doctor in the next 1-2 days. Return to the ER for any worsening symptoms. Prescriptions: New amoxicillin-pot clavulanate 875-125 mg tablet 1 tab PO BID 5 Days Qty: 10 0RF No Action (DME) Transport wheelchair See Rx Instructions .Route .MEDSUPPLY Qty: 1 0RF Rx Instructions: As directed multivitamin Tablet 1 tab PO DAILY 90 Days Qty: 90 3RF (DME) lancets [FreeStyle Lancets] 28 gauge misc See Rx Instructions .ROUTE .MEDSUPPLY Qty: 100 3RF Rx Instructions: As directed check the blood sugar once a day (DME) adult diapers size small petite See Rx Instructions .Route .MEDSUPPLY Qty: 90 12RF Rx Instructions: As directed (DME) FreeStyle Lite Strips Strip See Rx Instructions .ROUTE .MEDSUPPLY Qty: 100 11RF Rx Instructions: As directed 3 x/day (DME) Adult pull ups medium package See Rx Instructions .Route .MEDSUPPLY Qty: 90 11RF Rx Instructions: 8 Per day (PRN), 11 refills for 12 months. (DME) stair lift See Rx Instructions .Route .MEDSUPPLY Qty: 1 0RF Rx Instructions: As directed (DME) disposable gloves [Disposable Latex-Free Gloves] Misc See Rx Instructions .Route Qty: 1000 3RF Rx Instructions: As directed sertraline 100 mg tablet 200 mg PO DAILY 30 Days Qty: 180 1RF loratadine 10 mg tablet 10 mg PO BEDTIME Qty: 90 0RF cholecalciferol (vitamin D3) 50 mcg (2,000 unit) capsule 50 mcg PO DAILY Qty: 90 0RF ursodiol 250 mg tablet 250 mg PO TID Qty: 270 0RF risperidone 1 mg tablet 1 mg PO BEDTIME Qty: 90 1RF Eliquis 5 mg tablet 5 mg PO BID Qty: 180 1RF furosemide [Lasix] 20 mg tablet 20 mg PO DAILY Qty: 90 0RF metformin 500 mg tablet 500 mg PO BID amlodipine 5 mg Tablet 5 mg PO DAILY Qty: 90 0RF Hold Instructions: Resume on 04/17/23. Protocol: Hold for SBP< HOLD for SBP < : 90 losartan 25 mg Tablet 12.5 mg PO DAILY Qty: 90 0RF Protocol: Hold for SBP< HOLD for SBP < : 90 atorvastatin 40 mg tablet 80 mg PO BEDTIME Qty: 90 0RF polyethylene glycol 3350 [Purelax] 17 gram powder in packet 17 g PO DAILY PRN (Reason: constipation) Artificial Tears([id number]) 1-0.2-0.2 % drops 2 drp ophthalmic-Right Q4H PRN (Reason: Dry Eyes) (DME) pen needle, diabetic [Comfort EZ Pen [place]] 31 gauge x 3/16 needle See Rx Instructions .Route Qty: 100 3RF Rx Instructions: As directed (DME) MOUTH GUARD See Rx Instructions .Route .MEDSUPPLY Qty: 1 0RF Rx Instructions: As directed (DME) Walker with seat and wheels See Rx Instructions .Route .MEDSUPPLY Qty: 1 0RF Rx Instructions: As directed (DME) WIPES See Rx Instructions .Route .MEDSUPPLY Qty: 1 12RF Rx Instructions: As directed aspirin 81 mg tablet,delayed release (DR/EC) 81 mg PO DAILY Qty: 90 3RF acarbose 50 mg tablet 50 mg PO TID Qty: 90 4RF albuterol sulfate 90 mcg/actuation HFA aerosol inhaler 1 inh inhalation QID PRN (Reason: Shortness Of Breath Or Wheezing) Referrals: Gavin,Ludy Minaya MD [Primary Care Provider] - Print Language: Latvian
[2023-06-15 18:20] LABS: IDNOW Serial# BCCEAD1C
[2023-06-15 18:21] LABS: COVID-19 Test Negative (Negative)
[2023-06-15 18:24] LABS: IDNOW Serial# 9DB6401D; Influenza A Negative (Negative); Influenza B2 Negative (Negative)
[2023-06-15 19:43] VITALS: BP 191/77; PULSE 63; RESP 14; TEMP 36.6; O2SAT 97
[2023-06-15 20:07] LABS: Appearance Urine Clear; Color Urine Yellow; Glucose Urine UA Negative (Negative); Leukocyte Esterase Urine Small (1+) (Negative); Nitrite Urine Negative (Negative); PH 5.5 (5.0-9.0); Specific Gravity - Urine 1.015 (1.005-1.025); UMIC TRIGGER UACC YES; Urine Blood Negative (Negative); Urine Ketones Negative (Negative); Urine Protein Negative (Neg-Trace)
[2023-06-15 20:12] LABS: Bacteria Urine None Seen (None Seen); Hyaline Casts Urine 0-2 /LPF (0-2); RBC Urine 0-2 /HPF (0-2); Squamous Epithelial Cell Urine 0-2 /HPF (0-2); UACC Culture Trigger YES
[2023-06-15 20:51] LABS: Basophils Absolute Auto 0.1 X10*3/uL (0.0-0.2); Basophils Percent Auto 0.9 % (0-2); Eosinophils Absolute Auto 0.4 X10*3/uL (0.0-0.4); Eosinophils Percent Auto 5.9 % (0-4); Hematocrit 36.9 % (37.0-47.0); Hemoglobin 11.3 g/dl (12.0-16.0); Imm Gran Abs Auto 0.04 X10*3/uL (0.00-0.03); Imm Gran Pct Auto 0.6 % (0.0-0.4); Lymphocytes Absolute Auto 2.7 X10*3/uL (1.2-4.9); MANUAL DIFF FLAG SCAN; Mean Corpuscular HGB Conc 30.6 g/dl (31.0-35.0); Mean Corpuscular Hemoglobin 23.9 pg (27.0-33.0); Mean Corpuscular Volume 78.2 fL (80.0-98.0); Mean Platelet Volume 12.3 fL (9.4-12.3); Monocytes Absolute Auto 0.5 X10*3/uL (0.1-1.2); Monocytes Percent Auto 7.1 % (2-11); Neutrophils Absolute Auto 2.8 x10*3/uL (2.0-8.3); Neutrophils Percent Auto 43.5 % (45-73); PLT CLUMP 1; Red Blood Count 4.72 X10*6/uL (4.20-5.50); Red Cell Distribution Width 17.3 % (11.0-16.0); SCAN SMEAR FLAG 1
[2023-06-15 20:56] LABS: Prothrombin Time 12.7 SEC (11.1-13.3)
[2023-06-15 21:01] LABS: Lactic Acid 1.1 mmol/L (0.5-2.0)
[2023-06-15 21:08] LABS: Platelet Count 295 X10*3/uL (160-400); SLIDE REVIEW VERIFIED; White Blood Count 6.5 X10*3/uL (4.8-10.8)
[2023-06-15 21:10] LABS: Alanine Aminotransferase 30 U/L (0-31); Albumin Level 3.4 g/dL (3.5-5.0); Alkaline Phosphatase 279 U/L (39-117); Anion Gap 14 (12-20); Aspartate Amino Transferase 43 U/L (5-31); Bilirubin Total 0.1 mg/dL (0.0-1.0); Blood Urea Nitrogen 9 mg/dL (9-16); Carbon Dioxide 20 mmol/L (22-29); Chloride 110 mmol/L (96-108); Creatinine Clr Calc Pharmacy 66.6; Estimated Glomerular Filt Rate > 60; Glucose Random 83 mg/dL (60-115); Potassium 4.8 mmol/L (3.3-5.1); Sodium 139 mmol/L (135-145); Total Protein 8.2 g/dL (6.5-8.0)
[2023-06-15] MEDS: Amoxicillin/Potassium Clav 875 MG TABLET PO (22:08)
[2023-06-15 22:09] VITALS: BP 180/69; PULSE 63; RESP 16; O2SAT 97
== END 2023-06-15 22:54 | disposition home or self-care (01) ==
PROVIDERS: Emergency Provider Student in an Organized Health Care Education/Training Program; PCP Internal Medicine
DX: R42 Dizziness and giddiness (principal); J18.9 Pneumonia, unspecified organism; Z11.52 Encounter for screening for COVID-19; E11.9 Type 2 diabetes mellitus without complications; I10 Essential (primary) hypertension; E78.00 Pure hypercholesterolemia, unspecified; Z86.73 Personal history of transient ischemic attack (TIA), and cerebral infarction without residual deficits; Z86.718 Personal history of other venous thrombosis and embolism; Z79.01 Long term (current) use of anticoagulants; Z79.84 Long term (current) use of oral hypoglycemic drugs; Z79.02 Long term (current) use of antithrombotics/antiplatelets; Z79.82 Long term (current) use of aspirin; Z79.899 Other long term (current) drug therapy
CPT/HCPCS: 36415; 70450; 71045; 80053; 81001; 81003; 83605; 85025; 85610; 87040; 87086; 87502; 87635; 93005; 99284

== ENCOUNTER → 2023-06-15 17:03 | Outpatient (BNV) | payer OTHER, SELFPAY | PROVIDERS: Emergency Provider Student in an Organized Health Care Education/Training Program; PCP Internal Medicine; Visit Provider Internal Medicine | DX: I10 Essential (primary) hypertension (principal) | CPT/HCPCS: 93010 ==

== ENCOUNTER 2023-09-14 11:14 | Outpatient (AMB) | payer MEDICARE, MEDICAID, SELFPAY ==
[2023-09-14 11:33] VITALS: BP 126/62; PULSE 65; RESP 15; O2SAT 98; BMI 22.8
--- NOTE | 2023-09-14 11:33 | MHC.PC.OV ---
Vital Signs 09/14/23 11:33 Height 4 ft 9 in Weight 105 lb 9.623 oz BMI 22.8 BP 126/62 Blood Pressure Location Rt brachial Position Sitting Respiration 15 Pulse 65 Pulse Source Pulse Oximeter Pulse Oximetry (%) 98 Oxygen Delivery Method Room Air Intake Visit Reasons: [facility] ER follow up/UTI Intake Note: Patient is here to follow-up after a visit the emergency department at [facility], [place] on 08/07/23> Pt is seeing Dr. Riley Parson/Neurologist- [facility] due to the strokes. [employer] Farm[employer] Required: No Accompanied by: Daughter Allergies Latex, Natural Rubber Allergy (Intermediate, Verified 09/14/23 12:01) Rash Sulfa (Sulfonamide Antibiotics) [SULFA (SULFONAMIDE ANTIBIOTICS)] Adverse Reaction (Intermediate, Verified 09/14/23 12:01) Stomach Upset Morphine Sulfate Adverse Reaction (Intermediate, Uncoded 09/14/23 11:51) Abdominal Pain Medication List - Last Reconciled 09/14/23 by Vinay Ratliff PA-C acarbose 50 mg PO TID [adult diapers size small petite As directed] [Adult pull ups 8 Per day (PRN), 11 refills for 12 months. ] albuterol sulfate 90 mcg/actuation 1 inh inhalation QID PRN amlodipine 5 mg See Protocol PO DAILY amoxicillin-pot clavulanate 875-125 mg 1 tab PO BID 5 days apixaban (Eliquis) 5 mg PO BID aspirin 81 mg PO DAILY atorvastatin 80 mg (2 x 40 mg) PO BEDTIME blood sugar diagnostic (FreeStyle Lite Strips) As directed 3 x/day cholecalciferol (vitamin D3) 50 mcg PO DAILY disposable gloves (Disposable Latex-Free Gloves) As directed furosemide (Lasix) 20 mg PO DAILY [Paolo Lift As directed] lancets (FreeStyle Lancets) As directed check the blood sugar once a day loratadine 10 mg PO BEDTIME losartan 12.5 mg See Protocol PO DAILY metformin 500 mg PO BID [MOUTH GUARD As directed] multivitamin 1 tab PO DAILY 90 days [new shower chair that attached to tub and swings into the bathtub As directed] peg 584-mymgtpcvidmt-baclgpfs 1-0.2-0.2 % (Artificial Tears ([id number])) 2 drps ophthalmic-Right Q4H PRN pen needle, diabetic (Comfort EZ Pen Loving) As directed polyethylene glycol 3350 (Purelax) 17 grams PO DAILY PRN [PRESSURE RELIEF PAD pressure relief pad for chairs to sit on due to the patient developing sores on her buttocks by her tail Bone and a new shower chair that attached to tub and swings into the bathtub] [Pressure Sore Cushion As directed] risperidone 1 mg PO BEDTIME sertraline 200 mg (2 x 100 mg) PO DAILY 30 days [Sliding Shower Chair w/swivel seat and pivoting arms As directed] [stair lift As directed] [Transport wheelchair As directed] ursodiol 250 mg PO TID [Walker with seat and wheels As directed] [WIPES As directed] Tobacco use date assessed: 09/14/23 Fall risk assessment: No Falls in past year Last assessed Fall Risk: 09/14/23 Dental Screening Dental Screen Date: 09/14/23 Did you have a dental visit in the last 12 months?: No Did you have a dental problem in the last 6 months where you did not have access to dental care?: No Was dental information given to patient?: No HPI [facility] ER follow up/UTI HPI Details Patient is a 63-year-old Latvian-speaking female here today for an ER follow-up visit. 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 She presents today with her daughter. They presented to the [facility] ER for concerns for another stroke. Family members noted change in the patient's speech and possible facial droop. Patient workup included CT brain which did not show any significant acute stroke. Her urinalysis was positive for UTI. She was treated with oral antibiotics. Today urinalysis still shows 3+ leukocytes. Will send for urine culture. Family is concerned about the care she is getting at home as he only gets 7 hours a [employer]OC[employer] services. She needs more [employer] services as she needs constant cuing on taking medication, transport to medical appointments, help with bathing, toileting and changing herself etc. They also are concerned about her complaints of sacral and coccyx pain. Does not have an actual ulcer that has developed though does do a lot of sitting in his asking for adhesive protective pads to protect her from gaining an ulcer. [facility] Medical History History of CVA (cerebrovascular accident) Dysphagia Hypertension Hypertensive urgency Cervical osteoarthritis Osteoarthritis of right glenohumeral joint Shoulder pain, right BOB positive CVA (cerebral vascular accident) HTN (hypertension) Primary biliary cholangitis Fatty liver disease, nonalcoholic History of umbilical hernia Postural hypotension Sjogrens syndrome GERD (gastroesophageal reflux disease) History of sleep apnea Asthma Subclinical hypothyroidism Hypertension Dyslipidemia Diabetic retinopathy associated with type 2 diabetes mellitus Diabetic polyneuropathy associated with type 2 diabetes mellitus Hypoglycemia after GI (gastrointestinal) surgery Diabetes type 2, uncontrolled Surgical History Hx of dilation and curettage Hx of tonsillectomy History of laparoscopic appendectomy History of carpal tunnel release Hx of colonoscopy History of esophagogastroduodenoscopy (EGD) History of partial hysterectomy Hx of section Hx of gastric bypass Family History Father LA (myocardial infarction) Diabetes mellitus Mother Diabetes mellitus CVA (cerebral vascular accident) Maternal Grandmother Stomach cancer Sister Hemorrhagic cerebrovascular accident (CVA) Social History Household Members: Family Housing: House Are you a primary hospice care consultant to a significant other at home: No Do you presently have visiting nurse or other home services: Yes Alcohol intake: never Patient Tobacco Use Status: Never used Tobacco e-Cigarette/Vaping Use: Never Used Second Hand Smoke Exposure: No Advance Directives Date on File: 03/07/23 service: No Current occupational status: disabled Cognitive needs: Yes (wheelchait) Hearing needs: No Vision needs: No Questionnaire PHQ-9 Over the last 2 weeks, how often have you been bothered by any of the following problems? 1. Little interest or pleasure in doing things: not at all 2. Feeling down, depressed, or hopeless: not at all 3. Trouble falling or staying asleep, or sleeping too much: not at all 4. Feeling tired or having little energy: not at all 5. Poor appetite or overeating: not at all 6. Feeling bad about yourself - or that you are a failure or have let yourself or your family down: not at all 7. Trouble concentrating on things, such as reading the newspaper or watching television: not at all 8. Moving or speaking so slowly that other people could have noticed. Or the opposite - being so fidgety or restless that you have been moving around a lot more than usual: not at all 9. Thoughts that you would be better off or of hurting yourself in some way: not at all Total score: 0 Depression Screening Interpretation: Negative Depression Screening Done: Yes 35701 - PHQ-9 Billing: Yes Source: Developed by Drs. Ari Patrick, Bonny Hanks, David Rebollar and colleagues, with an educational kevin from [employer]. Thrive Questionnaire Date Thrive assessed: 09/14/23 I am a: Patient What is your living situation today?: I have a steady place to live Within the past 12 months, did the food you bought not last and you didn't have the money to get more?: Never true Within the past 12 months, did you worry whether your food would run out before you got money to buy more?: Never true Do you have trouble paying for medicines?: No Do you have trouble getting transportation to medical appointments?: No Do you have trouble paying your heating and electricity bill?: No Do you have trouble taking care of your child, family member or friend?: No Do you have trouble with day-to-day activities such as bathing, preparing meals, shopping, managing finances, etc.?: No Are you currently unemployed and looking for a job?: No Are you interested in more education?: No Please select the resources that you would like help with: None Currently or been in a relationship where the following occur: no concerns reported THRIVE Score: 0 AUDIT C Alcohol Use Questionnaire (AUDIT-C) 1. How often do you have a drink containing alcohol?: Never 3. How often do you have six or more drinks on one occasion?: Never Total Score: 0 DYLAN-7 AMB Questionnaire DYLAN-7 Date DYLAN - 7 assessed: 09/14/23 Feeling nervous, anxious, or on edge: 0 = Not at all Not being able to stop or control worryin = Not at all Worrying too much about different things: 0 = Not at all Trouble relaxin = Not at all Being so restless that it is hard to sit still: 0 = Not at all Becoming easily annoyed or irritable: 0 = Not at all Feeling afraid as if something awful might happen: 0 = Not at all Total DYLAN-7 score (0-4 normal; 5-9 mild; 10-14 moderate; 15-21 severe): 0 Source: Developed by Drs. Ari Patrick, Bonny Hanks, David Rebollar and colleagues, with an educational kevin from [employer]. DYLAN-7 Assessment Billing DYLAN-7 Assessment Tool: DYLAN-7 Assessment 69016 Review of Systems Const Denies headache(s) Eyes Denies loss of vision ENT Denies vertigo, Denies dizziness, Denies headache(s) and Denies sore throat Card Denies chest pain, Denies leg edema and Denies lightheadedness Resp Denies cough, Denies hemoptysis and Denies wheezing GI Denies abdominal pain, Denies melena, Denies constipation, Denies diarrhea and Denies vomiting Denies urinary frequency, Denies dysuria and Denies urinary urgency Musc Denies arthralgias, Denies joint swelling, Denies numbness and Denies tingling Neuro Denies Abnormal speech present, Denies behavioral changes, Denies vertigo, Denies dizziness, Denies headache(s), Denies loss of vision, Denies memory loss, Denies numbness and Denies tingling Psych Denies anxiety, Denies behavioral changes, Denies depression, Denies memory loss and Denies panic attacks Constantine/Lymph Denies easy bleeding and Denies easy bruising Aller/Immun Denies wheezing Physical exam (Primary Care) Vital Signs: Last Vital Signs Pulse 65 09/14/23 11:33 Resp 15 09/14/23 11:33 BP 126/62 09/14/23 11:33 Pulse Ox 98 09/14/23 11:33 Oxygen Delivery Method Room Air 09/14/23 11:33 BMI result Body Mass Index 22.8 Tobacco/Smoking Status: Tobacco use Status Tobacco use date assessed 09/14/23 09/14/23 11:52 Patient Tobacco Use Status Never used Tobacco 09/14/23 11:34 e-Cigarette/Vaping Use Never Used 09/14/23 11:34 PHQ-9: PHQ-9 Score PHQ-9: Total score 0 09/14/23 12:37 Depression Screening Interpretation: Negative Thrive Assessment: Date of Thrive Assessment Date Thrive assessed 09/14/23 09/14/23 11:52 Currently or been in a relationship where the following occur: no concerns reported Const Other: APPEARS FRAIL AND THIN. SITTING IN WHEELCHAIR General: healthy appearing, no acute distress, alert and awake Nutritional Appearance: well nourished Orientation/consciousness: oriented to person, oriented to place and oriented to time HENMT Ears: TM's normal bilaterally General nose exam: Normal nasal mucous membranes and turbinates present Eyes Conjunctivae: conjunctivae normal Sclerae: sclerae normal Pupils: Equal, round and reactive pupils present Neck Neck: Yes no lymphadenopathy and Yes no JVD Thyroid: Thyroid normal Carotids: no bruits Resp Effort & Inspection: normal respiratory effort and not tachypneic Auscultation: no crackles, no rales, no rhonchi and no wheezes Cardio Rate: regular rate Rhythm: regular rhythm Heart sounds: no murmurs and normal S1 and S2 GI Palpation (GI): Soft to palpation, nontender, no hepatomegaly and no splenomegaly Auscultation: normal bowel sounds Skin General skin exam: no rashes or lesions noted and dry skin Neuro General: oriented to person, oriented to place and oriented to time Cranial nerves: Yes Equal, round and reactive pupils present Speech: No Abnormal speech present Gait exam (Neuro): Normal gait present Motor exam (neuro): no tremor noted Extrem Other: NOTED PROFOUND RIGHT-SIDED NEUROMUSCULAR WEAKNESS Right upper extremity: full ROM Left upper extremity: full ROM Right lower extremity: full ROM; no edema Left lower extremity: full ROM; no edema Psych Mental Status: mental status grossly normal Speech and movement: Normal speech and movement present Affect: normal affect Attitude: cooperative Thought process: Normal thought process present Results AMB Urinalysis, Automated UA Leukoctes 500 Shira/uL Last Edit by CINTHYA Duvall on 09/14/23 12:38 UA Nitrite Negative Last Edit by CINTHYA Duvall on 09/14/23 12:38 UA Urobilinogen 0 mg/dL Last Edit by CINTHYA Duvall on 09/14/23 12:38 UA Protein 0 mg/dL Last Edit by CINTHYA Duvall on 09/14/23 12:38 UA pH 6.0 Last Edit by CINTHYA Duvall on 09/14/23 12:38 UA Blood 0 Peyman/uL Last Edit by CINTHYA Duvall on 09/14/23 12:38 UA Specific [place] 1.025 Last Edit by CINTHYA Duvall on 09/14/23 12:38 UA Ketone Negative Last Edit by CINTHYA Duvall on 09/14/23 12:38 UA Bilirubin 1 mg/dL Last Edit by CINTHYA Duvall on 09/14/23 12:38 UA Glucose mg/dL Last Edit by CINTHYA Duvall on 09/14/23 12:38 Results Reviewed Results Reviewed: Laboratory Last Values Urine pH (Auto) 6.0 09/14/23 12:36 Specific [place] (Auto) 1.025 09/14/23 12:36 Urine Protein (Auto) 0 mg/dL 09/14/23 12:36 Urine Ketones (Auto) Negative 09/14/23 12:36 Urine Blood (Auto) 0 Peyman/uL 09/14/23 12:36 Urine Nitrite (Auto) Negative 09/14/23 12:36 Urine Bilirubin (Auto) 1 mg/dL 09/14/23 12:36 Urine Urobilinogen (Auto) 0 mg/dL 09/14/23 12:36 Leukocyte Esterase (Auto) 500 Shira/uL 09/14/23 12:36 Assessment and Plan Assessment & Plan (1) UTI (urinary tract infection): Code(s): N39.0 - Urinary tract infection, site not specified Qualifiers: Hematuria presence: without hematuria Urinary tract infection type: acute cystitis Qualified Code(s): N30.00 - Acute cystitis without hematuria Plan: Was found to have UTI recent ER visit. Was placed on antibiotics. Today's urinalysis with 3+ leukocytes. Will send for urine culture (2) Recurrent cerebrovascular accidents (CVAs): Code(s): I63.9 - Cerebral infarction, unspecified Plan: Unclear etiology at this point to patient's recurrent CVAs. She has seeing a engagement specialist in [facility] now has a cardiac event monitor. (3) Toe infection: Code(s): L08.9 - Local infection of the skin and subcutaneous tissue, unspecified Plan: Does have a toenail infection with some invasion in the nail cuticle. Will supply patient with topical antibiotic to use. She does have upcoming appointment with Podiatry in November. Orders: Orders Urine Culture Today N39.0 - Urinary tract infection, site not specified AMB Urinalysis Automated Today N39.0 - Urinary tract infection, site not specified Medications: New mupirocin 2% 1 appl topical BID 30 days 15 grams 0RF L08.9 - Local infection of the skin and subcutaneous tissue, unspecified foam bandage (Allevyn Gentle Border Sacrum) As directed 60 ea 1RF L89.159 - Pressure ulcer of sacral region, unspecified stage Refilled [Paolo Lift] As directed 1 ea 0RF E11.40 - Type 2 diabetes mellitus with diabetic neuropathy, unspecified, F41.1 - Generalized anxiety disorder, I63.9 - Cerebral infarction, unspecified, M47.812 - Spondylosis without myelopathy or radiculopathy, cervical region, M48.061 - Spinal stenosis, lumbar region without neurogenic claudication, R42 - Dizziness and giddiness, R53.1 - Weakness, Z86.73 - Personal history of transient ischemic attack (TIA), and cerebral infarction without residual deficits Coding Level of Care Code Est Pt Level 4 (56806) Diagnoses Acute cystitis without hematuria N30.00 Hematuria presence: without hematuria Urinary tract infection type: acute cystitis Recurrent cerebrovascular accidents (CVAs) I63.9 Toe infection L08.9 Additional Codes DYLAN-7 Assessment Billing - DYLAN-7 Assessment Tool: DYLAN-7 Assessment 50204 ([id number])
== END 2023-09-14 12:31 | disposition home or self-care (01) ==
PROVIDERS: PCP Internal Medicine; Visit Provider Physician Assistant
DX: N30.00 Acute cystitis without hematuria (principal); Z86.73 Personal history of transient ischemic attack (TIA), and cerebral infarction without residual deficits; L08.9 Local infection of the skin and subcutaneous tissue, unspecified; N39.0 Urinary tract infection, site not specified
CPT/HCPCS: 81003; 99214

== ENCOUNTER 2023-09-14 12:52 | Outpatient (REF) | payer MEDICARE, MEDICAID, SELFPAY | END 2023-09-14 12:53 | disposition home or self-care (01) | LOC: HO.LNP 12:52 | PROVIDERS: Visit Provider Physician Assistant | DX: N39.0 Urinary tract infection, site not specified (principal) | CPT/HCPCS: 87086 ==

== ENCOUNTER 2023-12-05 13:31 | Emergency (ER) | payer OTHER, SELFPAY ==
--- NOTE | ~2023-12-05 | XR_ITS ---
EXAMINATION: XR FOOT, LEFT CLINICAL INFORMATION: Pain injury pain and swelling top of foot and fifth toe. COMPARISON: X-ray the left foot December 2012 TECHNIQUE: AP, lateral, and oblique views of the left foot. FINDINGS: There is no fracture The bones are osteopenic. Arterial calcification present. There is a moderate-sized plantar calcaneal spur XR/XR foot LT min 3V IMPRESSION: 1. No fracture. 2. Osteopenia. 3. Calcific atherosclerotic disease.
[2023-12-05 13:52] VITALS: BP 101/48; PULSE 69; RESP 18; TEMP 36.3; O2SAT 98
--- NOTE | 2023-12-05 13:52 | ED.GENADULT ---
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 Family was treating with iodine soaked gauze initially, which was improving symptoms. They then took patient to urgent care where she was prescribed and antifungal cream. Family states wound appeared worse after using this. Deny fevers. Became concerned today due to mild left foot swelling. MD complaint: diabetic foot wound Onset (ago): week(s) Location: left and lower extremity Associated symptoms: denies other symptoms Treatments prior to arrival: other Related Data Home Medications ?Medication ?Instructions ?Recorded ?Confirmed albuterol sulfate 90 mcg/actuation 1 inh inhalation QID PRN Shortness 04/28/20 09/14/23 aerosol inhaler Of Breath Or Wheezing polyethylene glycol 3350 17 gram 17 g PO DAILY PRN constipation 10/25/22 09/14/23 oral powder packet (Purelax) peg [id number] 1 2 drp ophthalmic-Right Q4H PRN Dry 04/22/23 09/14/23 %-0.2 %-0.2 % eye drops Eyes (Artificial Tears ([id number])) Previous Rx's ?Medication ?Instructions ?Recorded pen needle, diabetic 31 gauge x #100 ea 02/24/2109/22 (Comfort EZ Pen [place]) multivitamin 1 tab PO DAILY 90 days #90 tabs 09/13/21 Walker with seat and wheels #1 ea 09/28/21 lancets 28 gauge (FreeStyle #100 ea 12/28/21 Lancets) MOUTH GUARD #1 ea 06/08/22 adult diapers size small petite #90 ea 08/03/22 blood sugar diagnostic (FreeStyle #100 ea 11/28/22 Lite Strips) Adult pull ups #90 ea 12/13/22 stair lift #1 ea 12/16/22 disposable gloves (Disposable #1,000 ea 01/03/23 Latex-Free Gloves) amlodipine 5 mg tablet 5 mg PO DAILY #90 tabs 01/21/23 WIPES #1 ea 03/28/23 aspirin 81 mg tablet,delayed 81 mg PO DAILY #90 tabs 03/28/23 release apixaban 5 mg tablet (Eliquis) 5 mg PO BID #180 tabs 05/16/23 amoxicillin 875 mg-potassium 1 tab PO BID 5 days #10 tabs 06/15/23 clavulanate 125 mg tablet loratadine 10 mg tablet 10 mg PO BEDTIME #90 tabs 06/23/23 sertraline 100 mg tablet 200 mg (2 x 100 mg) PO DAILY 30 08/07/23 days #180 tabs PRESSURE RELIEF PAD #1 ea 08/10/23 Pressure Sore Cushion #1 ea 08/10/23 Sliding Shower Chair w/swivel seat #1 ea 08/10/23 and pivoting arms new shower chair that attached to #1 ea 08/10/23 tub and swings into the bathtub Paolo Lift #1 ea 09/14/23 foam bandage 6 5/8 X 6 3/4 #60 ea 09/14/23 (Allevyn Gentle Border Sacrum) mupirocin 2 % topical ointment 1 appl topical BID 30 days #15 09/14/23 grams acarbose 50 mg tablet 50 mg PO TID #90 tabs 09/22/23 miconazole nitrate 2 % vaginal 1 appful vaginal BEDTIME 7 days 09/22/23 cream (Monistat 7) #45 grams risperidone 1 mg tablet 1 mg PO BEDTIME #90 tabs 09/22/23 Ablewear/ADL universal cuff #1 ea 10/12/23 Grab BAR #1 ea 10/12/23 atorvastatin 40 mg tablet 80 mg (2 x 40 mg) PO BEDTIME #90 10/14/23 tabs cholecalciferol (vitamin D3) 50 50 mcg PO DAILY #90 caps 10/29/23 mcg (2,000 unit) capsule furosemide 20 mg tablet (Lasix) 20 mg PO DAILY #90 tabs 10/29/23 REUSABLE BED PADS #10 ea 11/12/23 ursodiol 250 mg tablet 250 mg PO TID #270 tabs 05/14/24 terbinafine HCl 1 % topical cream 1 appl topical BID 14 days #15 11/30/23 grams FLUSHABLE WIPES #1 ea 12/01/23 Folding sliding transfer bench for #1 ea 12/01/23 the shower RECLINER CHAIR #1 ea 12/01/23 Transport wheelchair #1 ea 12/01/23 blood pressure monitor (Blood #1 ea 12/01/23 Pressure Kit) losartan 25 mg tablet 12.5 mg PO DAILY #90 tabs 12/01/23 metformin 500 mg tablet 500 mg PO BID #90 tabs 12/01/23 cephalexin 500 mg capsule 500 mg PO QID 7 days #28 caps 12/05/23 magnesium oxide 400 mg PO DAILY #3 caps 12/05/23 Allergies Allergy/AdvReac Type Severity Reaction Status Date / Time Latex, Natural Rubber Allergy Intermediate Rash Verified 12/05/23 13:54 morphine Allergy Intermediate Abdominal Verified 12/05/23 13:54 Pain Sulfa (Sulfonamide AdvReac Intermediate Stomach Verified 12/05/23 13:54 Antibiotics) Upset [SULFA (SULFONAMIDE ANTIBIOTICS)] Review of Systems Review of Systems: As per HPI. Yes all other systems are reviewed and are negative Constitutional: Constitutional: Reports as per HPI [facility]LY [facility] Past Medical History Medical History History of CVA (cerebrovascular accident) Dysphagia Hypertension Hypertensive urgency Cervical osteoarthritis Osteoarthritis of right glenohumeral joint Shoulder pain, right BOB positive CVA (cerebral vascular accident) HTN (hypertension) Primary biliary cholangitis Fatty liver disease, nonalcoholic History of umbilical hernia Postural hypotension Sjogrens syndrome GERD (gastroesophageal reflux disease) History of sleep apnea Asthma Subclinical hypothyroidism Hypertension Dyslipidemia Diabetic retinopathy associated with type 2 diabetes mellitus Diabetic polyneuropathy associated with type 2 diabetes mellitus Hypoglycemia after GI (gastrointestinal) surgery Diabetes type 2, uncontrolled Surgical History Hx of dilation and curettage Hx of tonsillectomy History of laparoscopic appendectomy History of carpal tunnel release Hx of colonoscopy History of esophagogastroduodenoscopy (EGD) History of partial hysterectomy Hx of section Hx of gastric bypass Family History Family History Father [place] (myocardial infarction) Diabetes mellitus Mother Diabetes mellitus CVA (cerebral vascular accident) Maternal Grandmother Stomach cancer Sister Hemorrhagic cerebrovascular accident (CVA) Social History Social History Household Members: Family Housing: House Are you a primary urgent care physician assistant to a significant other at home: No Do you presently have visiting nurse or other home services: Yes Alcohol intake: never Patient Tobacco Use Status: Never used Tobacco e-Cigarette/Vaping Use: Never Used Second Hand Smoke Exposure: No Advance Directives: Yes Advance Directives on File: Yes Advance Directives Date on File: 03/07/23 Do you have a plan to hurt others: No Plan service: No Current occupational status: disabled Cognitive needs: Yes (wheelchait) Hearing needs: No Vision needs: No Physical Exam ED Vital Signs: Vital Signs - 24 hr 12/05/23 13:52 Temperature 97.3 F Pulse Rate 69 Respiratory Rate 18 Blood Pressure 101/48 L Pulse Oximetry 98 Oxygen Delivery Method Room Air BMI result Body Mass Index 0.0 Vital signs have been reviewed and appear to be correct. Blood pressure normal. Heart rate normal. Respiratory rate normal. Temperature normal. Oxygen saturation normal. Const General: cooperative and no acute distress Orientation/consciousness: oriented to person, oriented to place, oriented to time and patient oriented x3 Limitations: no limitations HENMT Head: Yes normocephalic and Yes atraumatic Ears: external ears normal General nose exam: Normal external nose present Face and sinus: Yes face symmetric Mouth: oropharynx normal and moist mucous membranes Throat: Yes uvula midline Eyes Pupils: Equal, round and reactive pupils present Neck Neck: Yes normal visual inspection and Yes supple Resp Effort & Inspection: normal respiratory effort and able to speak in complete sentences Auscultation: clear to auscultation bilaterally Cardio Rate: regular rate Rhythm: regular rhythm Heart sounds: S1 normal heart sound present and S2 normal heart sound present GI Palpation (GI): Soft to palpation and nontender Auscultation: normoactive bowel sounds General: Yes no CVA tenderness Back/Spine/Pelvis Back: no CVA tenderness Skin General skin exam: elasticity normal and turgor normal Neuro General: oriented to person, oriented to place, oriented to time, patient oriented x3, no focal motor deficits and CN's II-XI intact bilaterally Cranial nerves: Yes Equal, round and reactive pupils present Cognition (Neuro): normal cognition Extrem General: Yes no pedal edema and Yes no calf tenderness Left lower extremity: foot Details: normal capillary refill and vascular exam Details: dorsalis pedis pulse present and posterior tibial pulse present Ankle/foot/toe images: 1. 1cm open wound to lateral 4th toe Psych Mental Status: mental status grossly normal Affect: normal affect Thought process: Normal thought process present Course Course Course Narrative: RME performed by Sherri Diez PA-C. Patient is a 63 year old assigned female at presenting to the emergency department with swelling to the dorsal aspect of the left foot. Patient is a diabetic and is concerned she has an infected pressure ulcer. Detailed physical exam and review of systems are deferred to the general farm manager. Labs and imaging ordered. Patient placed back in the waiting room pending room availability and results. Medications Administered Generic Name Dose Route Start Last Admin Trade Name Freq PRN Reason Stop Dose Admin Magnesium Sulfate 2 gm in 50 mls @ 25 mls/hr 12/05/23 15:52 12/05/23 16:41 Magnesium Sulfate/H2o IV 12/05/23 17:51 25 mls/hr ONCE ONE Administration Medical Decision Making Medical Decision Making [facility] Narrative: Patient is a 63-year-old Lebanese-speaking female with history of DM,CVA, diabetic neuropathy, CAD, asthma, GERD, HTN presenting to the emergency department with family who report that patient has a wound to her left 4th toe for the past 2 weeks. On exam patient is awake, A+Ox3, VS WNL, afebrile, normal neurological exam without focal deficits, physical exam findings as above. Given reported symptoms and physical exam findings, initial differential includes diabetic foot ulcer, cellulitis, osteomyelitis, electrolyte abnormality. Labs notable for hypomagnesemia, no leukocytosis, elevated ESR, normal CRP. X-ray left foot notable for no evidence of osteomyelitis. My interpretation is in agreement with the radiologist's interpretation. IV magnesium 2g ordered, will discharge home on PO magnesium for a few days. Wound is well appearing without surrounding erythema, warmth or swelling. Will treat with Keflex given DM, instructed family to follow up with PCP as well as wound care. Return precautions discussed. Patient and family verbalized understanding of and agreement with plan of care. Differential Diagnosis Differential Diagnoses: The differential diagnosis associated with the presentation includes As per [facility]. Admission/Observation Consideration of admission/observation: Escalation of care including admission/observation considered Patient would have been admitted to the hospital had their work up had any findings where hospital admission was appropriate and their clinical presentation warranted hospital admission. Lab Data [facility] Lab Attestation statement: I reviewed the patient's lab results. As per [facility] 12/05/23 14:55 12/05/23 14:55 Labs: Lab Results 12/05/23 Range/Units 14:55 WBC 6.0 (4.8-10.8) X10*3/uL RBC 4.54 (4.20-5.50) X10*6/uL Hgb 11.2 L (12.0-16.0) g/dl Hct 35.4 L (37.0-47.0) % MCV 78.0 L (80.0-98.0) fL MCH 24.7 L (27.0-33.0) pg MCHC 31.6 (31.0-35.0) g/dl RDW 20.1 H (11.0-16.0) % Plt Count 251 (160-400) X10*3/uL MPV Not Reportable Immature Gran % (Auto) 0.3 (0.0-0.4) % Neut % (Auto) 59.8 (45-73) % Lymph % (Auto) 31.7 (20-40) % [place] % (Auto) 6.0 (2-11) % Eos % (Auto) 1.5 (0-4) % Baso % (Auto) 0.7 (0-2) % Lymph # (Auto) 1.9 (1.2-4.9) X10*3/uL [place] # (Auto) 0.4 (0.1-1.2) X10*3/uL Eos # (Auto) 0.1 (0.0-0.4) X10*3/uL Baso # (Auto) 0.0 (0.0-0.2) X10*3/uL Abs Immat Gran (auto) 0.02 (0.00-0.03) X10*3/uL Absolute Neuts (auto) 3.6 (2.0-8.3) x10*3/uL Absolute Nucleated RBC 0.000 (0.0-0.012) X10*3/uL Nucleated RBC % (auto) 0.0 (0.0-0.2) /100WBC ESR 42 H (0-20) MM/HR Sodium 142 (135-145) mmol/L Potassium 4.1 (3.3-5.1) mmol/L Chloride 104 (96-108) mmol/L Carbon Dioxide 25 (22-29) mmol/L Anion Gap 17 (12-20) BUN 18 H (9-16) mg/dL Creatinine 0.77 (0.5-1.4) mg/dL Estim Creat Clear Calc TNP Estimated GFR > 60 Random Glucose 71 (60-115) mg/dL Calcium 8.6 (8.4-10.2) mg/dL Magnesium 1.3 L* (1.6-2.6) mg/dL Total Bilirubin 0.3 (0.0-1.0) mg/dL AST 76 H (5-31) U/L ALT 57 H (0-31) U/L Alkaline Phosphatase 216 H (39-117) U/L C-Reactive Protein 0.44 (< or = 0.50) mg/dL Total Protein 7.6 (6.5-8.0) g/dL Albumin 3.3 L (3.5-5.0) g/dL Independent Interpretation I performed an independent interpretation of an: Plain X-Ray Interpretation: No evidence of osteomyelitis to left foot. Radiology Impression Discussion of test interpretation with radiology: I have reviewed the radiologist's reading. Radiologist Impression: XR/XR foot LT min 3V IMPRESSION: 1. No fracture. 2. Osteopenia. 3. Calcific atherosclerotic disease. Independent Historian Clinical information obtained from an independent historian. History obtained from or confirmed by: Other (daughter) External Record Review External record reviewed: Inpatient record, Office record and Outpatient record Prescription Management I considered prescription management with: Antibiotic and Other Discharge Plan Discharge Clinical Impression: Diabetic ulcer of foot associated with diabetes mellitus due to underlying condition, limited to breakdown of skin, Hypomagnesemia Patient Disposition: Home, Self-Care Instructions: Foot Care for People with Diabetes (ED), Diabetic Foot Ulcers (ED), Hypomagnesemia (ED) Additional Instructions: You were evaluated in the emergency department today for a wound to your left foot. You are being treated with antibiotics, please complete the full course as prescribed. The wound should be assessed daily for increasing redness, swelling, thick yellow drainage, redness streaking up the foot as these are all signs of worsening infection. You are being referred to wound care for further management, please call to schedule an appointment, they will not call you. Your magnesium level was low in the emergency department today. You were given IV magnesium, but are being prescribed oral magnesium to take for the next several days. Please take this as prescribed. Follow-up with your primary care provider within the next 3 days so your magnesium level can be rechecked. Return to the emergency department if you develop signs of increasing infection in your foot, fever 100.4? F or greater, increasing pain, change of color in your foot or any other concerning symptoms. Prescriptions: New cephalexin 500 mg capsule 500 mg PO QID 7 Days Qty: 28 0RF magnesium oxide 400 mg magnesium capsule 400 mg PO DAILY Qty: 3 0RF No Action multivitamin Tablet 1 tab PO DAILY 90 Days Qty: 90 3RF (DME) lancets [FreeStyle Lancets] 28 gauge misc See Rx Instructions .ROUTE .MEDSUPPLY Qty: 100 3RF Rx Instructions: As directed check the blood sugar once a day (DME) adult diapers size small petite See Rx Instructions .Route .MEDSUPPLY Qty: 90 12RF Rx Instructions: As directed (DME) FreeStyle Lite Strips Strip See Rx Instructions .ROUTE .MEDSUPPLY Qty: 100 11RF Rx Instructions: As directed 3 x/day (DME) Adult pull ups medium package See Rx Instructions .Route .MEDSUPPLY Qty: 90 11RF Rx Instructions: 8 Per day (PRN), 11 refills for 12 months. (DME) stair lift See Rx Instructions .Route .MEDSUPPLY Qty: 1 0RF Rx Instructions: As directed (DME) disposable gloves [Disposable Latex-Free Gloves] Misc See Rx Instructions .Route Qty: 1000 3RF Rx Instructions: As directed Eliquis 5 mg tablet 5 mg PO BID Qty: 180 1RF loratadine 10 mg tablet 10 mg PO BEDTIME Qty: 90 1RF sertraline 100 mg tablet 200 mg PO DAILY 30 Days Qty: 180 1RF (DME) PRESSURE RELIEF PAD See Rx Instructions .Route .MEDSUPPLY Qty: 1 0RF Rx Instructions: pressure relief pad for chairs to sit on due to the patient developing sores on her buttocks by her tail Bone and a new shower chair that attached to tub and swings into the bathtub (DME) Pressure Sore Cushion Small See Rx Instructions .Route .MEDSUPPLY Qty: 1 0RF Rx Instructions: As directed (DME) Sliding Shower Chair w/swivel seat and pivoting arms small See Rx Instructions .Route .MEDSUPPLY Qty: 1 0RF Rx Instructions: As directed (DME) new shower chair that attached to tub and swings into the bathtub See Rx Instructions .Route .MEDSUPPLY Qty: 1 0RF Rx Instructions: As directed miconazole nitrate [Monistat 7] 2 % cream 1 appful vaginal BEDTIME 7 Days Qty: 45 0RF acarbose 50 mg tablet 50 mg PO TID Qty: 90 4RF risperidone 1 mg tablet 1 mg PO BEDTIME Qty: 90 1RF (DME) Ablewear/ADL universal cuff See Rx Instructions .Route .MEDSUPPLY Qty: 1 0RF Rx Instructions: As directed (DME) Grab BAR See Rx Instructions .Route .MEDSUPPLY Qty: 1 0RF Rx Instructions: As directed atorvastatin 40 mg tablet 80 mg PO BEDTIME Qty: 90 1RF furosemide [Lasix] 20 mg tablet 20 mg PO DAILY Qty: 90 0RF cholecalciferol (vitamin D3) 50 mcg (2,000 unit) capsule 50 mcg PO DAILY Qty: 90 0RF (DME) REUSABLE BED PADS See Rx Instructions .Route .MEDSUPPLY Qty: 10 12RF Rx Instructions: Recliner Chair, Digital Blood Pressure Machine, Folding sliding transfer bench for the shower, Reusable bed pads, Flushable Wipes ursodiol 250 mg tablet 250 mg PO TID Qty: 270 0RF losartan 25 mg tablet 12.5 mg PO DAILY Qty: 90 0RF Protocol: Hold for SBP< HOLD for SBP < : 90 metformin 500 mg tablet 500 mg PO BID Qty: 90 0RF (DME) blood pressure monitor [Blood Pressure Kit] Kit See Rx Instructions .ROUTE .MEDSUPPLY Qty: 1 0RF Rx Instructions: As directed (DME) FLUSHABLE WIPES See Rx Instructions .Route .MEDSUPPLY Qty: 1 12RF Rx Instructions: As directedRecliner Chair, Digital Blood Pressure Machine, Folding sliding transfer bench for the shower, Reusable bed pads, Flushable Wipes (DME) Folding sliding transfer bench for the shower See Rx Instructions .Route .MEDSUPPLY Qty: 1 0RF Rx Instructions: Recliner Chair, Digital Blood Pressure Machine, Folding sliding transfer bench for the shower, Reusable bed pads, Flushable Wipes (DME) RECLINER CHAIR See Rx Instructions .Route .MEDSUPPLY Qty: 1 0RF Rx Instructions: Recliner Chair, Digital Blood Pressure Machine, Folding sliding transfer bench for the shower, Reusable bed pads, Flushable Wipes (DME) Transport wheelchair See Rx Instructions .Route .MEDSUPPLY Qty: 1 0RF Rx Instructions: As directed amlodipine 5 mg Tablet 5 mg PO DAILY Qty: 90 0RF Hold Instructions: Resume on 04/17/23. Protocol: Hold for SBP< HOLD for SBP < : 90 polyethylene glycol 3350 [Purelax] 17 gram powder in packet 17 g PO DAILY PRN (Reason: constipation) Artificial Tears([id number]) 1-0.2-0.2 % drops 2 drp ophthalmic-Right Q4H PRN (Reason: Dry Eyes) amoxicillin-pot clavulanate 875-125 mg tablet 1 tab PO BID 5 Days Qty: 10 0RF (DME) pen needle, diabetic [Comfort EZ Pen [place]] 31 gauge x 3/16 needle See Rx Instructions .Route Qty: 100 3RF Rx Instructions: As directed (DME) MOUTH GUARD See Rx Instructions .Route .MEDSUPPLY Qty: 1 0RF Rx Instructions: As directed terbinafine HCl 1 % cream 1 appl topical BID 14 Days Qty: 15 0RF (DME) Walker with seat and wheels See Rx Instructions .Route .MEDSUPPLY Qty: 1 0RF Rx Instructions: As directed (DME) WIPES See Rx Instructions .Route .MEDSUPPLY Qty: 1 12RF Rx Instructions: As directed aspirin 81 mg tablet,delayed release (DR/EC) 81 mg PO DAILY Qty: 90 3RF mupirocin 2 % ointment 1 appl topical BID 30 Days Qty: 15 0RF (DME) Allevyn Gentle Border Sacrum 6 5/8 X 6 3/4 bandage See Rx Instructions .Route Qty: 60 1RF Rx Instructions: As directed (DME) Paolo Lift Small See Rx Instructions .Route .MEDSUPPLY Qty: 1 0RF Rx Instructions: As directed albuterol sulfate 90 mcg/actuation HFA aerosol inhaler 1 inh inhalation QID PRN (Reason: Shortness Of Breath Or Wheezing) Print Language: Lebanese
[2023-12-05 15:00] LABS: MANUAL DIFF FLAG NO
[2023-12-05 15:08] LABS: Basophils Percent Auto 0.7 % (0-2); Eosinophils Absolute Auto 0.1 X10*3/uL (0.0-0.4); Eosinophils Percent Auto 1.5 % (0-4); Hematocrit 35.4 % (37.0-47.0); Hemoglobin 11.2 g/dl (12.0-16.0); Imm Gran Abs Auto 0.02 X10*3/uL (0.00-0.03); Imm Gran Pct Auto 0.3 % (0.0-0.4); Lymphocytes Absolute Auto 1.9 X10*3/uL (1.2-4.9); Lymphocytes Percent Auto 31.7 % (20-40); Mean Corpuscular HGB Conc 31.6 g/dl (31.0-35.0); Mean Corpuscular Hemoglobin 24.7 pg (27.0-33.0); Monocytes Absolute Auto 0.4 X10*3/uL (0.1-1.2); Neutrophils Absolute Auto 3.6 x10*3/uL (2.0-8.3); Neutrophils Percent Auto 59.8 % (45-73); Platelet Count 251 X10*3/uL (160-400); Red Blood Count 4.54 X10*6/uL (4.20-5.50); Red Cell Distribution Width 20.1 % (11.0-16.0)
[2023-12-05 15:39] LABS: Alanine Aminotransferase 57 U/L (0-31); Albumin Level 3.3 g/dL (3.5-5.0); Alkaline Phosphatase 216 U/L (39-117); Anion Gap 17 (12-20); Aspartate Amino Transferase 76 U/L (5-31); Bilirubin Total 0.3 mg/dL (0.0-1.0); Blood Urea Nitrogen 18 mg/dL (9-16); C Reactive Protein 0.44 mg/dL (< or = 0.50); Calcium 8.6 mg/dL (8.4-10.2); Carbon Dioxide 25 mmol/L (22-29); Chloride 104 mmol/L (96-108); Estimated Glomerular Filt Rate > 60; Glucose Random 71 mg/dL (60-115); Magnesium 1.3 mg/dL (1.6-2.6); Potassium 4.1 mmol/L (3.3-5.1); Sodium 142 mmol/L (135-145); Total Protein 7.6 g/dL (6.5-8.0)
[2023-12-05 15:41] LABS: Erythrocyte Sedimentation Rate 42 MM/HR (0-20)
[2023-12-05] MEDS: Magnesium Sulfate/H2O 2 GM/50 ML PIGGYBACK IV (16:41)
[2023-12-05 20:35] VITALS: BP 182/63; PULSE 73; RESP 20; TEMP 37.2; O2SAT 95
[2023-12-05 20:36] VITALS: BP 182/63; PULSE 73; RESP 20; TEMP 37.2; O2SAT 95
== END 2023-12-05 20:37 | disposition home or self-care (01) ==
PROVIDERS: Physician Assistant Medical; Emergency Provider Emergency Medicine; PCP Internal Medicine
DX: E11.621 Type 2 diabetes mellitus with foot ulcer (principal); L97.529 Non-pressure chronic ulcer of other part of left foot with unspecified severity; E83.42 Hypomagnesemia; I10 Essential (primary) hypertension; K21.9 Gastro-esophageal reflux disease without esophagitis; Z86.73 Personal history of transient ischemic attack (TIA), and cerebral infarction without residual deficits; Z79.84 Long term (current) use of oral hypoglycemic drugs; Z79.899 Other long term (current) drug therapy
CPT/HCPCS: 36415; 73630; 80053; 83735; 85025; 85652; 86140; 96365; 96366; 99284; J3475

== ENCOUNTER 2024-03-03 15:49 | Inpatient (IN) | payer OTHER, SELFPAY ==
--- NOTE | ~2024-03-03 | CT_ITS ---
EXAMINATION: CT HEAD WITHOUT CONTRAST CLINICAL INFORMATION: Loss of consciousness, left facial droop. On anticoagulants. COMPARISON: CT head 06/15/2023. TECHNIQUE: Contiguous axial imaging was performed from the skull base to vertex without intravenous administration of contrast. This CT examination was performed using dose optimization techniques as appropriate, variously including the following: *Automated exposure control *Adjustment of mA and/or kV according to patient size (this includes techniques or standardized protocols for targeted exams where dose is matched to indication/reason for exam; i.e. extremities or head) *Use of iterative reconstruction technique DLP: 456 mGy-cm FINDINGS: Age-indeterminate 1 cm hypodensity superior to the frontal horn of the left lateral ventricle (5:35) at the level of the corpus callosum, new compared to 06/15/2023. Several additional chronic bilateral lacunar infarcts, for instance in the basal ganglia (5:40), left centrum semiovale (5:28) and liana (5:46) are stable. There is no evidence of acute intracranial hemorrhage or edematous territorial infarction. Scattered hypoattenuation in the periventricular and deep white matter are consistent with moderate microangiopathy. Urias-white matter differentiation is preserved. Proportional prominence of the ventricles and sulcal spaces. No evidence for obstructive hydrocephalus. No abnormal mass effect or midline shift. No extra-axial fluid collections. No acute soft tissue or osseous abnormalities. The mastoid air cells and paranasal sinuses are clear. Bilateral lens extraction. CT/CT head for stroke IMPRESSION: 1. No evidence of acute intracranial hemorrhage or edematous territorial infarction. 2. Age-indeterminate hypodensity superior to the frontal horn of the left lateral ventricle overlying the corpus callosum, new compared to 06/15/2023. If indicated, correlation with an MR of the brain could be obtained. 3. Multiple additional chronic lacunar infarcts are stable. A [place] enrichment teacher confirmed receipt of these findings with Teddy Bernal MD at 16:13 on 03/03/2024. Electronically signed by: Mana Kraft MD 03/03/2024 04:19 PM EDT
--- NOTE | ~2024-03-03 | MR_ITS ---
EXAMINATION: MR BRAIN WITHOUT CONTRAST CLINICAL INFORMATION: Encephalopathy. Syncope. Word finding difficulty. COMPARISON: CT head from 03/03/2024. TECHNIQUE: MRI of the brain was obtained using routine sequences without contrast. FINDINGS: No focal restricted diffusion is demonstrated to suggest acute or subacute cerebral ischemia. No evidence of acute hemorrhagic products on heme-sensitive imaging. Chronic lacunar infarcts of the left centrum semiovale/schulz radiata white matter, right thalamus, and liana with varying degrees of hemosiderin staining (most notably within the linaa). Scattered and partially confluent periventricular, deep white matter, and brainstem T2 FLAIR hyperintensities consistent with moderate underlying microangiopathy. Proportional prominence of the ventricles and sulcal spaces without evidence of obstructive hydrocephalus. No abnormal mass effect. No midline shift. Normal appearance of the pituitary gland. Normal positioning of the cerebellar tonsils. Normal arterial and venous vascular flow voids are present. Normal, homogeneous marrow signal. Moderate degenerative spondylosis throughout the visualized upper cervical spine. Mild mucosal thickening of the paranasal sinuses. No signal abnormalities within the mastoids. Bilateral lens extractions. MR/MR head/brain wo con IMPRESSION: 1. No acute intracranial abnormalities. 2. Moderate underlying microangiopathy and generalized cerebral volume loss. Chronic lacunar infarcts of the left centrum semiovale/schulz radiata white matter, right thalamus, and liana. Electronically signed by: Lex Holt DO 03/04/2024 06:25 PM EDT
--- NOTE | 2024-03-03 15:53 | ED_ITS ---
HPI - Altered Mental Status General Chief Complaint: Stroke Stated Complaint: Stroke alert, hx, L facial droop, LKWT 1520,+thinn Time Seen by Provider: 03/03/24 15:53 Source: patient Mode of arrival: EMS Limitations: language barrier (Occitan, she does understand [place], custom stock maker used) History of Present Illness ED Provider: Dr. 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 He also obtained a report from EMS. According to the daughter, the patient was with her HOME HEALTH TRAVEL PT who was giving the bath in a shower chair V [facility] HEALTH TRAV[facility] PT finish the shower and was tolerating the patient off when she had a brief loss of consciousness. After the loss of consciousness she was confused and appeared to have difficulty with word finding but was able to understand commands. Daughter states she has had similar presentations in the past when she has had a stroke or TIA. The patient is on Eliquis. Patient was made a an acute stroke protocol and brought directly to the CT scan. CT of the head revealed no bleed and no acute stroke. Related Data Home Medications ?Medication ?Instructions ?Recorded ?Confirmed albuterol sulfate 90 mcg/actuation 1 inh inhalation QID PRN Shortness 04/28/20 09/14/23 aerosol inhaler Of Breath Or Wheezing polyethylene glycol 3350 17 gram 17 g PO DAILY PRN constipation 10/25/22 09/14/23 oral powder packet (Purelax) peg [id number]-[id number] 1 2 drp ophthalmic-Right Q4H PRN Dry 04/22/23 09/14/23 %-0.2 %-0.2 % eye drops Eyes (Artificial Tears ([id number])) Aloe scented personal cleansing 12/22/23 wipes Previous Rx's ?Medication ?Instructions ?Recorded pen needle, diabetic 31 gauge x #100 ea 02/24/2109/22 (Comfort EZ Pen Boelus) multivitamin 1 tab PO DAILY 90 days #90 tabs 09/13/21 Walker with seat and wheels #1 ea 09/28/21 lancets 28 gauge (FreeStyle #100 ea 12/28/21 Lancets) MOUTH GUARD #1 ea 06/08/22 adult diapers size small petite #90 ea 08/03/22 blood sugar diagnostic (FreeStyle #100 ea 11/28/22 Lite Strips) Adult pull ups #90 ea 12/13/22 stair lift #1 ea 12/16/22 disposable gloves (Disposable #1,000 ea 01/03/23 Latex-Free Gloves) amlodipine 5 mg tablet 5 mg PO DAILY #90 tabs 01/21/23 WIPES #1 ea 03/28/23 aspirin 81 mg tablet,delayed 81 mg PO DAILY #90 tabs 03/28/23 release amoxicillin 875 mg-potassium 1 tab PO BID 5 days #10 tabs 06/15/23 clavulanate 125 mg tablet loratadine 10 mg tablet 10 mg PO BEDTIME #90 tabs 06/23/23 PRESSURE RELIEF PAD #1 ea 08/10/23 Pressure Sore Cushion #1 ea 08/10/23 Sliding Shower Chair w/swivel seat #1 ea 08/10/23 and pivoting arms new shower chair that attached to #1 ea 08/10/23 tub and swings into the bathtub Paolo Lift #1 ea 09/14/23 foam bandage 6 5/8 X 6 3/4 #60 ea 09/14/23 (Allevyn Gentle Border Sacrum) mupirocin 2 % topical ointment 1 appl topical BID 30 days #15 09/14/23 grams miconazole nitrate 2 % vaginal 1 appful vaginal BEDTIME 7 days 09/22/23 cream (Monistat 7) #45 grams risperidone 1 mg tablet 1 mg PO BEDTIME #90 tabs 09/22/23 Ablewear/ADL universal cuff #1 ea 10/12/23 Grab BAR #1 ea 10/12/23 terbinafine HCl 1 % topical cream 1 appl topical BID 14 days #15 11/30/23 grams Transport wheelchair #1 ea 12/01/23 losartan 25 mg tablet 12.5 mg PO DAILY #90 tabs 12/01/23 cephalexin 500 mg capsule 500 mg PO QID 7 days #28 caps 12/05/23 magnesium oxide 400 mg PO DAILY #3 caps 12/05/23 Folding sliding transfer bench for #1 ea 12/12/23 the shower RECLINER CHAIR #1 ea 12/12/23 REUSABLE BED PADS #10 ea 12/12/23 blood pressure monitor (Blood #1 ea 12/12/23 Pressure Kit) acarbose 50 mg tablet 50 mg PO TID #270 tabs 12/18/23 apixaban 5 mg tablet (Eliquis) 5 mg PO BID #180 tabs 12/29/23 cholecalciferol (vitamin D3) 50 50 mcg PO DAILY #90 caps 01/08/24 mcg (2,000 unit) capsule sertraline 100 mg tablet 200 mg (2 x 100 mg) PO DAILY 30 01/08/24 days #180 tabs metformin 500 mg tablet 500 mg PO BID #90 tabs 01/13/24 ursodiol 250 mg tablet 250 mg PO TID #270 tabs 01/15/24 atorvastatin 40 mg tablet 80 mg (2 x 40 mg) PO BEDTIME #90 01/19/24 tabs furosemide 20 mg tablet (Lasix) 20 mg PO DAILY #90 tabs 01/22/24 Allergies Allergy/AdvReac Type Severity Reaction Status Date / Time Latex, Natural Rubber Allergy Intermediate Rash Verified 03/03/24 16:16 morphine Allergy Intermediate Abdominal Verified 03/03/24 16:16 Pain Sulfa (Sulfonamide AdvReac Intermediate Stomach Verified 03/03/24 16:16 Antibiotics) Upset [SULFA (SULFONAMIDE ANTIBIOTICS)] Review of Systems 2 Review of Systems: Yes all other systems are reviewed and are negative [facility] Past Medical History Medical History History of CVA (cerebrovascular accident) Dysphagia Hypertension Hypertensive urgency Cervical osteoarthritis Osteoarthritis of right glenohumeral joint Shoulder pain, right BOB positive CVA (cerebral vascular accident) HTN (hypertension) Primary biliary cholangitis Fatty liver disease, nonalcoholic History of umbilical hernia Postural hypotension Sjogrens syndrome GERD (gastroesophageal reflux disease) History of sleep apnea Asthma Subclinical hypothyroidism Hypertension Dyslipidemia Diabetic retinopathy associated with type 2 diabetes mellitus Diabetic polyneuropathy associated with type 2 diabetes mellitus Hypoglycemia after GI (gastrointestinal) surgery Diabetes type 2, uncontrolled Surgical History Hx of dilation and curettage Hx of tonsillectomy History of laparoscopic appendectomy History of carpal tunnel release Hx of colonoscopy History of esophagogastroduodenoscopy (EGD) History of partial hysterectomy Hx of section Hx of gastric bypass Family History Family History Father [place] (myocardial infarction) Diabetes mellitus Mother Diabetes mellitus CVA (cerebral vascular accident) Maternal Grandmother Stomach cancer Sister Hemorrhagic cerebrovascular accident (CVA) Social History Social History Household Members: Family Housing: House Are you a primary daycare assistant to a significant other at home: No Do you presently have visiting nurse or other home services: Yes Unable to assess alcohol history related to: Unable to respond Alcohol intake: never Patient Tobacco Use Status: Never used Tobacco Smoked in Last 30 Days: No e-Cigarette/Vaping Use: Never Used Second Hand Smoke Exposure: No Use of substances other than those prescribed or required for medical reasons: Unable to respond Advance Directives: Yes Advance Directives on File: Yes Advance Directives Date on File: 03/07/23 Do you have a plan to hurt others: No Plan service: No Current occupational status: disabled Cognitive needs: Yes (wheelchait) Hearing needs: No Vision needs: No Physical Exam ED Vital Signs: Vital Signs - 24 hr 03/03/24 16:13 03/03/24 16:20 03/03/24 19:13 Temperature 97.9 F 97.6 F 97.0 F Pulse Rate 70 72 79 Respiratory Rate 18 18 20 Blood Pressure 149/64 H 171/62 H 163/81 H Pulse Oximetry 98 100 97 Oxygen Delivery Method Room Air Room Air Room Air BMI result Body Mass Index 19.7 Vital signs revealed an elevated blood pressure of 149/64 otherwise were unremarkable Exam: General: Awake, alert in no distress, patient was having difficulty with word finding and has slightly slurred speech but follows simple command Head: Normocephalic, atraumatic EENT: PERRL, Lids normal, sclera normal, conjunctiva normal, nose normal , ears normal, throat without erythema or exudates Neck: Supple, no adenopathy Lung: breath sounds symmetric, no wheezing, rales or rhonchi Chest: symmetric movement, nontender Heart: regular rate and rhythm, normal S1, S2 no murmurs or rubs Abdomen: soft, non-tender, nondistended, normal bowel sounds Back: no vertebral tenderness, no CVAT Extremities: no deformities, moves all extremities symmetrically Neuro: Awake, alert, oriented, difficulty with word finding, slurred speech, cranial nerves revealed slight right facial droop, moves all extremities symmetrically Psych: Pleasant, cooperative NIH Stroke Scale Internal: Initial- Upon Arrival Level of Consciousness: Alert Level of Consciousness Questions: Answers neither question correctly Level of Consciousness Commands: Performs both tasks correctly Best Gaze: Normal Visual: No visual loss Facial Palsy: Minor paralyis Motor Arm (Right): No drift Motor Arm (Left): No drift Motor Leg (Right): No drift Motor Leg (Left): No drift Limb Ataxia: Absent Sensory: Normal Best Language: Mild to moderate aphasia Dysarthia: Normal Extinction and Inattention: No abnormality Score: 4 Medical Decision Making Medical Decision Making MDM Narrative: 62-year-old female with a history of diabetes mellitus, mild intermittent asthma, hypertension, diabetic polyneuropathy, hyperlipidemia, GERD, 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 The patient was having difficulty with word finding and the patient's speech is slightly slurred according to the daughter, patient does follow simple commands. Vital signs revealed an elevated blood pressure otherwise unremarkable. The patient does have a slight left facial droop. NIH stroke scale was 4 open speech Differential diagnosis: ?Includes but is not limited to stroke, TIA, intracranial bleed, encephalopathy, electrolyte abnormalities, anemia, cardiac arrhythmia, myocardial infarction, myocardial ischemia Course: 19:51 In his laboratory evaluation as follows: Chronic microcytic anemia with an H&H of 10 and 32.6 when MCV 79. Patient has an elevated BUN of 30 with a normal creatinine of 0.86. Glucose was elevated 117. AST, ALT and alk-phos were elevated 43, 44 and 143. Twelve EKG revealed a sinus rhythm CT scan of the brain did not reveal any acute abnormalities The patient was on Eliquis therefore she was not a thrombolytics candidate. Given her persistent difficulty with word finding and slurred speech, concerned that the patient may have had a acute stroke versus TIA here for patient will be admitted to the hospitalist service for further management. I did discuss the patient's presentation over tiger text with the covering hospitalist, Dr. Walker and the patient will be admitted for further management Admission/Observation Consideration of admission/observation: Escalation of care including admission/observation considered Lab Data MDM Lab Attestation statement: I reviewed the patient's lab results. 03/03/24 16:42 03/03/24 16:42 Labs: Lab Results 03/03/24 03/03/24 Range/Units 16:01 16:42 WBC 5.1 (4.8-10.8) X10*3/uL RBC 4.11 L (4.20-5.50) X10*6/uL Hgb 10.3 L (12.0-16.0) g/dl Hct 32.6 L (37.0-47.0) % MCV 79.3 L (80.0-98.0) fL MCH 25.1 L (27.0-33.0) pg MCHC 31.6 (31.0-35.0) g/dl RDW 18.0 H (11.0-16.0) % Plt Count 192 (160-400) X10*3/uL MPV Not Reportable Immature Gran % (Auto) 0.4 (0.0-0.4) % Neut % (Auto) 62.4 (45-73) % Lymph % (Auto) 25.5 (20-40) % Scurry % (Auto) 9.1 (2-11) % Eos % (Auto) 2.0 (0-4) % Baso % (Auto) 0.6 (0-2) % Lymph # (Auto) 1.3 (1.2-4.9) X10*3/uL Scurry # (Auto) 0.5 (0.1-1.2) X10*3/uL Eos # (Auto) 0.1 (0.0-0.4) X10*3/uL Baso # (Auto) 0.0 (0.0-0.2) X10*3/uL Abs Immat Gran (auto) 0.02 (0.00-0.03) X10*3/uL Absolute Neuts (auto) 3.2 (2.0-8.3) x10*3/uL Absolute Nucleated RBC 0.000 (0.0-0.012) X10*3/uL Nucleated RBC % (auto) 0.0 (0.0-0.2) /100WBC Smear Tech's Comments VERIFIED PT 20.6 H D (11.1-13.3) SEC Whole Blood PT 19.6 H (11.1-13.5) sec INR 1.7 H (0.9-1.1) Whole Blood INR 1.6 H (0.9-1.1) APTT 36.0 (26.0-36.8) SEC Sodium 143 (135-145) mmol/L Potassium 4.3 (3.3-5.1) mmol/L Chloride 117 H (96-108) mmol/L Carbon Dioxide 15 L (22-29) mmol/L Anion Gap 15 (12-20) BUN 30 H (9-16) mg/dL Creatinine 0.86 (0.5-1.4) mg/dL Estim Creat Clear Calc 48.6 Estimated GFR > 60 Random Glucose 117 H (60-115) mg/dL Calcium 8.7 (8.4-10.2) mg/dL Magnesium 1.6 (1.6-2.6) mg/dL Total Bilirubin 0.2 (0.0-1.0) mg/dL Direct Bilirubin < 0.2 (0.0-0.5) mg/dL AST 43 H (5-31) U/L ALT 44 H (0-31) U/L Alkaline Phosphatase 143 H (39-117) U/L Troponin I High Sens 6.6 D (<3.5-17.0) ng/L Total Protein 6.7 (6.5-8.0) g/dL Albumin 3.3 L (3.5-5.0) g/dL Triglycerides 92 (<150) mg/dL Cholesterol 92 (<200) mg/dL LDL Cholesterol, Calc 35 (<100) mg/dL HDL Cholesterol 39 L (>40) mg/dL Radiology Impression Discussion of test interpretation with radiology: I have reviewed the radiologist's reading. Radiologist Impression: CT head for stroke IMPRESSION: 1. No evidence of acute intracranial hemorrhage or edematous territorial infarction. 2. Age-indeterminate hypodensity superior to the frontal horn of the left lateral ventricle overlying the corpus callosum, new compared to 06/15/2023. If indicated, correlation with an MR of the brain could be obtained. 3. Multiple additional chronic lacunar infarcts are stable. A [place] technical specialist confirmed receipt of these findings with Teddy Bernal MD at 16:13 on 03/03/2024. Electronically signed by: Mana Kraft MD 03/03/2024 04:19 PM EDT Dictated By: Luanne Kraft Procedures EJ/Peripheral Line Neck L: Time Out Performed: No Skin Cleansed in Sterile Fashion: Yes Size (gauge): 20 IV Secured and Dressing Applied: Yes Patient Tolerated Procedure: well Critical Care Time Critical Care Time Critical Care Time: Yes Total Critical Care Time: 45 Attestation: Critical Care: The patient was critically ill with a high probability of imminent or life threatening deterioration. I spent greater than 30 minutes of discontinuous time evaluating the patient,delivering critical care at the bedside, discussing and evaluating pertinent data with consultants. Critical care time does not include time spent performing separately billable procedures or teaching. Total time spent performing critical care was 45 minutes. Discharge Plan Discharge Clinical Impression: Expressive aphasia, Syncope Patient Disposition: Admitted As Inpatient
--- NOTE | 2024-03-03 15:53 | ECG_ITS ---
Test Reason : stroke Blood Pressure : / mmHG Vent. Rate : 069 BPM Atrial Rate : 069 BPM P-R Int : 178 ms QRS Dur : 058 ms QT Int : 418 ms P-R-T Axes : 044 -01 063 degrees QTc Int : 447 ms Normal sinus rhythm Minimal voltage criteria for LVH, may be normal variant ( R in aVL ) Borderline ECG When compared with ECG of 15-JUN-2023 17:47, No significant change was found Referred By: Teddy Bernal Electronically Signed By:BONY HANSON
[2024-03-03 16:12] LABS: Prothrombin Time Whole Bld POC 19.6 sec (11.1-13.5); ~PT, ~INR - Anti Coag Clinic 1.6 (0.9-1.1)
[2024-03-03 16:13] VITALS: BP 108/55; BP 149/64; PULSE 63; PULSE 70; RESP 18; TEMP 36.6; O2SAT 98; O2SAT 99; BMI 19.7
[2024-03-03 16:20] VITALS: BP 171/62; PULSE 72; RESP 18; TEMP 36.4; O2SAT 100
--- NOTE | 2024-03-03 16:49 | MHC.EDTECH ---
Pt changed over into a hospital gown and placed on a clinical radiologist. ekg done and handed to a provider
[2024-03-03 17:11] LABS: INTERNATIONAL NORM RATIO 1.7 (0.9-1.1); Prothrombin Time 20.6 SEC (11.1-13.3)
[2024-03-03 17:16] LABS: Stroke Lab Use COMPLETE
[2024-03-03 17:21] LABS: Basophils Percent Auto 0.6 % (0-2); Eosinophils Absolute Auto 0.1 X10*3/uL (0.0-0.4); Hematocrit 32.6 % (37.0-47.0); Hemoglobin 10.3 g/dl (12.0-16.0); Imm Gran Abs Auto 0.02 X10*3/uL (0.00-0.03); Imm Gran Pct Auto 0.4 % (0.0-0.4); Lymphocytes Absolute Auto 1.3 X10*3/uL (1.2-4.9); Lymphocytes Percent Auto 25.5 % (20-40); MANUAL DIFF FLAG SCAN; Mean Corpuscular HGB Conc 31.6 g/dl (31.0-35.0); Mean Corpuscular Hemoglobin 25.1 pg (27.0-33.0); Mean Corpuscular Volume 79.3 fL (80.0-98.0); Monocytes Absolute Auto 0.5 X10*3/uL (0.1-1.2); Monocytes Percent Auto 9.1 % (2-11); Neutrophils Absolute Auto 3.2 x10*3/uL (2.0-8.3); Neutrophils Percent Auto 62.4 % (45-73); Red Blood Count 4.11 X10*6/uL (4.20-5.50); SCAN SMEAR FLAG 1; White Blood Count 5.1 X10*3/uL (4.8-10.8)
[2024-03-03 17:22] LABS: PLT ABN DIST 1
[2024-03-03 17:24] LABS: Platelet Count 192 X10*3/uL (160-400)
[2024-03-03 17:31] LABS: SLIDE REVIEW VERIFIED
[2024-03-03 17:41] LABS: Alanine Aminotransferase 44 U/L (0-31); Albumin Level 3.3 g/dL (3.5-5.0); Alkaline Phosphatase 143 U/L (39-117); Anion Gap 15 (12-20); Aspartate Amino Transferase 43 U/L (5-31); Bilirubin Direct < 0.2 mg/dL (0.0-0.5); Bilirubin Total 0.2 mg/dL (0.0-1.0); Blood Urea Nitrogen 30 mg/dL (9-16); Calcium 8.7 mg/dL (8.4-10.2); Carbon Dioxide 15 mmol/L (22-29); Chloride 117 mmol/L (96-108); Cholesterol 92 mg/dL (<200); Creatinine Clr Calc Pharmacy 48.6; Estimated Glomerular Filt Rate > 60; Glucose Random 117 mg/dL (60-115); HDL Cholesterol 39 mg/dL (>40); LDL Cholesterol Calculated 35 mg/dL (<100); Magnesium 1.6 mg/dL (1.6-2.6); Potassium 4.3 mmol/L (3.3-5.1); Sodium 143 mmol/L (135-145); Total Protein 6.7 g/dL (6.5-8.0); Triglycerides 92 mg/dL (<150)
[2024-03-03 17:50] LABS: Troponin-I High Sensitivity 6.6 ng/L (<3.5-17.0)
--- NOTE | 2024-03-03 18:10 | PC.NURSE ---
Pt comes from home for ?stroke like symptoms, family says she was in the shower and went unconscious. Hx of multiple CVAs. Left sided facial droop noted, per EMS/family this is new onset, equal strength bilaterally, able to follow commands. No increased wob/sob noted, lung sounds cta bilaterally, s1 and s2 heard, NSR on the monitor and storage bin tender, abdomen soft, non-tender on palpation, pt states no pain. Pt placed on purewick. Swallow eval done-pt was not able to adequately hold/swallow liquid in mouth. Wet cough noted after swallowing, pt family states this is not her baseline. MD Bernal notified. Pt hard stick for labs/IV, MD Bernal placed 20g EJ left side of neck, pt tolerated well. Call calderon within reach, all needs met at this time.
[2024-03-03 19:13] VITALS: BP 163/81; PULSE 79; RESP 20; TEMP 36.1; O2SAT 97
--- NOTE | 2024-03-03 19:15 | PC.NURSE ---
this rn assumed care of pt , pt a&ox4, respirations even and unlabored. no acute distress noted.
--- NOTE | 2024-03-03 20:17 | PM.IMHP ---
History of Present Illness Date of Service: 03/03/24 Attending physician on admission: Aj Jordan Chief Complaint: AMS, syncope Pt is a 63-year-old female with a PMH significant for?hx of recurrent CVAs with sequela of bilateral hemiparesis R>L, HTN, [id number] type 2 diabetes, diabetic polyneuropathy, diabetic retinopathy, HLD, mild intermittent asthma, and GERD who presents to the ED for evaluation of syncopal episode with altered mentation, difficulty word finding, and slurred speech. Patient is Mohawk-speaking only and hides soaker services utilized. Patient does not remember the incident in HPI supplemented with chart and provider review. Earlier this afternoon at 15:00 patient was getting a shower in shower chair by her MAINTENANCE SHOP MANAGER when patient was witnessed to have a brief moment of LOC and then resultant difficulty word finding and slurred speech. Was also noted to have left-sided facial droop which states is new as previously has had chronic right-sided facial droop. Patient herself reports some acute blurriness and continued difficulty word finding. Endorses worsening right sided weakness especially in her arm. Denies headache. No numbness or tingling in extremities. No chest pressure/pain or palpitations. Chronic shortness of breath at baseline. No fever or chills. Patient is not a tNK candidate due to anticoagulation with apixaban.? In the ED pt was hypertensive up to 170/62, vitals otherwise WNL. Labs were grossly unremarkable and around baseline for patient. No leukocytosis. Stable microcytic anemia of 10.3/32.6. No significant abnormalities. Renal function baseline. Hepatic function showing mild transaminitis, around baseline. CT?of head showing no evidence of acute intracranial hemorrhage or edematous territorial infarction, but showed age-indeterminate hypodensity overlying the corpus callosum, and multiple chronic lacunar infarcts. EKG demonstrated normal sinus without evidence of significant ST elevations or depressions. Pt will be admitted to the hospital for further workup of dysarthria with continued left-sided facial droop, right upper extremity weakness and difficulty word finding concerning for acute CVA. Review of Systems Review of Systems: Syncopal episode Dysarthria, difficulty word finding Upper right extremity weakness Acute blurriness Left-sided facial droop Denies headache No chest pain/pressure, palpitations Denies numbness or tingling in extremities PMFSH Medical History History of CVA (cerebrovascular accident) Dysphagia Hypertension Hypertensive urgency Cervical osteoarthritis Osteoarthritis of right glenohumeral joint Shoulder pain, right BOB positive CVA (cerebral vascular accident) HTN (hypertension) Primary biliary cholangitis Fatty liver disease, nonalcoholic History of umbilical hernia Postural hypotension Sjogrens syndrome GERD (gastroesophageal reflux disease) History of sleep apnea Asthma Subclinical hypothyroidism Hypertension Dyslipidemia Diabetic retinopathy associated with type 2 diabetes mellitus Diabetic polyneuropathy associated with type 2 diabetes mellitus Hypoglycemia after GI (gastrointestinal) surgery Diabetes type 2, uncontrolled Family History Father IA (myocardial infarction) Diabetes mellitus Mother Diabetes mellitus CVA (cerebral vascular accident) Maternal Grandmother Stomach cancer Sister Hemorrhagic cerebrovascular accident (CVA) Surgical History Hx of dilation and curettage Hx of tonsillectomy History of laparoscopic appendectomy History of carpal tunnel release Hx of colonoscopy History of esophagogastroduodenoscopy (EGD) History of partial hysterectomy Hx of section Hx of gastric bypass Social History Household Members: Family Housing: House Are you a primary children's zoo caretaker to a significant other at home: No Do you presently have visiting nurse or other home services: Yes Unable to assess alcohol history related to: Unable to respond Alcohol intake: never Patient Tobacco Use Status: Never used Tobacco Smoked in Last 30 Days: No e-Cigarette/Vaping Use: Never Used Second Hand Smoke Exposure: No Use of substances other than those prescribed or required for medical reasons: Unable to respond Advance Directives: Yes Advance Directives on File: Yes Advance Directives Date on File: 03/07/23 Do you have a plan to hurt others: No Plan service: No Current occupational status: disabled Cognitive needs: Yes (wheelchait) Hearing needs: No Vision needs: No Meds Allergies Allergy/AdvReac Type Severity Reaction Status Date / Time Latex, Natural Rubber Allergy Intermediate Rash Verified 03/03/24 16:16 morphine Allergy Intermediate Abdominal Verified 03/03/24 16:16 Pain Sulfa (Sulfonamide AdvReac Intermediate Stomach Verified 03/03/24 16:16 Antibiotics) Upset [SULFA (SULFONAMIDE ANTIBIOTICS)] Home Medications ?Medication ?Instructions ?Recorded ?Confirmed ?Last Taken ?Type albuterol sulfate 90 mcg/actuation 1 inh inhalation QID PRN Shortness 04/28/20 09/14/23 03/06/23 History aerosol inhaler Of Breath Or Wheezing polyethylene glycol 3350 17 gram 17 g PO DAILY PRN constipation 10/25/22 09/14/23 10/25/22 History oral powder packet (Purelax) peg [id number] 1 2 drp ophthalmic-Right Q4H PRN Dry 04/22/23 09/14/23 Unknown History %-0.2 %-0.2 % eye drops Eyes (Artificial Tears ([id number])) Aloe scented personal cleansing 12/22/23 Unknown History wipes Physical Exam Vital Signs and Narrative: Vital Signs: Last Vital Signs Temp 97.0 F 03/03/24 19:13 Pulse 79 03/03/24 19:13 Resp 20 03/03/24 19:13 BP 163/81 H 03/03/24 19:13 Pulse Ox 97 03/03/24 19:13 O2 Del Method Room Air 03/03/24 19:13 BMI result Body Mass Index 19.7 Constitutional: Alert, in no acute distress. Frail-appearing. Mental Status: Oriented to person, place and time. Eyes: Pupils are equal, round, and reactive to light. Ear, Nose, and Throat: Oropharynx clear, mucous membranes moist. Ears and nose without deformities. Trachea midline. Poor dentition. Respiratory: Clear to auscultation bilaterally. No wheezing, rales, or rhonchi. Cardiovascular: S1, S2 regular. No murmurs, rubs, or gallops. Gastrointestinal: Abdomen soft, non-tender, non-distended. Normal bowel sounds. Neurologic: Left-sided facial droop. Global weakness, R>L. Reduced sensation to light touch of RUE. Skin: Warm, dry. Extremities: No edema. Psychiatric: Normal mood and affect. Results Labs 03/03/24 16:42 03/03/24 16:42 Labs: Laboratory Results - last 24 hr 03/03/24 03/03/24 16:01 16:42 MCV 79.3 L MCH 25.1 L MCHC 31.6 RDW 18.0 H Plt Count 192 MPV Not Reportable Immature Gran % (Auto) 0.4 Neut % (Auto) 62.4 Lymph % (Auto) 25.5 Sheridan % (Auto) 9.1 Eos % (Auto) 2.0 Baso % (Auto) 0.6 Lymph # (Auto) 1.3 [place]idan # (Auto) 0.5 Eos # (Auto) 0.1 Baso # (Auto) 0.0 Abs Immat Gran (auto) 0.02 Absolute Neuts (auto) 3.2 Absolute Nucleated RBC 0.000 Nucleated RBC % (auto) 0.0 Smear Tech's Comments VERIFIED PT 20.6 H D Whole Blood PT 19.6 H INR 1.7 H Whole Blood INR 1.6 H APTT 36.0 Anion Gap 15 Estim Creat Clear Calc 48.6 Estimated GFR > 60 Random Glucose 117 H Calcium 8.7 Magnesium 1.6 Total Bilirubin 0.2 Direct Bilirubin < 0.2 AST 43 H ALT 44 H Alkaline Phosphatase 143 H Troponin I High Sens 6.6 D Total Protein 6.7 Albumin 3.3 L Triglycerides 92 Cholesterol 92 LDL Cholesterol, Calc 35 HDL Cholesterol 39 L Imaging Radiologist's Impressions: Impressions Head CT 03/03/24 15:53 IMPRESSION: 1. No evidence of acute intracranial hemorrhage or edematous territorial infarction. 2. Age-indeterminate hypodensity superior to the frontal horn of the left lateral ventricle overlying the corpus callosum, new compared to 06/15/2023. If indicated, correlation with an MR of the brain could be obtained. 3. Multiple additional chronic lacunar infarcts are stable. A [place] hides and skins colorer confirmed receipt of these findings with Teddy Bernal MD at 16:13 on 03/03/2024. Electronically signed by: Mana Kraft MD 03/03/2024 04:19 PM EDT Assessment and Plan (1) Expressive aphasia: Status: Acute (2) Weakness: Status: Acute (3) Syncope: Status: Acute Plan Pt is a 63-year-old female with a PMH significant for?hx of recurrent CVAs with sequela of bilateral hemiparesis R>L, HTN, [id number] type 2 diabetes, diabetic polyneuropathy, diabetic retinopathy, HLD, mild intermittent asthma, and GERD who presents to the ED for evaluation of syncopal episode with altered mentation, difficulty word finding, and slurred speech. Pt will be admitted to the hospital for further workup of dysarthria with continued left-sided facial droop, right upper extremity weakness and difficulty word finding concerning for acute CVA. Syncope episode with focal deficits Patient with expressive aphasia, RUE weakness, blurriness, slurred speech, left sided facial droop Not yet back to baseline Concerning for acute CVA CT of head negative for acute stroke Patient with multiple prior CVAs, including on 10/1922, 03/06/2023, 04/13/2023, 04/24/2023, 06/08/2023 Will hold on MRI or echo or carotid ultrasound pending Neurology input Continue aspirin, statin, Eliquis NPO pending speech evaluation Lipid panel PT/OT evaluation Monitor on telemetry Diet NPO pending speech evaluation Previously recommendations: Chopped/advanced (NDD3) with nectar thick liquids; Small sips, slow pace, 1 step at a time; Oral medications: Crushed with puree HTN Will allow for permissive hypertension Hold antihypertensives for now Non-insulin dependent type 2 diabetes Hold metformin Sliding-scale insulin, diabetic diet Mild intermittent asthma Not in acute exacerbation Continue home inhalers Mood disorder Continue home mood stabilizers Full Code Attending:?Dr. Jordan DVT Prophylaxis: On Eliquis Med Rec Pending Pt will require a hospitalization of at least two nights for treatment and further evaluation of syncopal episode with resultant expressive aphasia, RUL PE weakness, blurriness, slurred speech, and left-sided facial droop concerning for acute CVA. Given patient's multiple comorbidities including multiple CVAs, patient is at risk for further decompensation without hospitalization for close monitoring and specialist consultation with Neurology. Quality Stroke Does the patient have a stroke diagnosis?: No Reason for No Anti-thrombotic by Day Two: Contraindicated (Not a candidate for tNK as she is anticoagulated on Eliquis) VTE Prior VTE?: No VTE Risk Level:: Medical - moderate - high VTE Device Contraindication: Treatment Not Indicated VTE Drug Contraindication: N/A - Med Ordered
[2024-03-04] VITALS (10 sets, daily range): BP systolic 179–207; BP diastolic 62–92; PULSE 60–71; RESP 12–20; TEMP 36.5–37; O2SAT 96–98
[2024-03-04] MEDS: 0.9 % Sodium Chloride Flush 3 ML SYRINGE IVFLUSH (01:00)
--- NOTE | 2024-03-04 04:45 | PC.NURSE ---
aware of pt elevated BPs at this time, no new orders.
[2024-03-04] MEDS: hydrALAZINE HCl 20 MG/ML VIAL 2.5 MG IVPUSH (04:56)
--- NOTE | 2024-03-04 04:58 | PC.NURSE ---
pt medicated per mar at this time.
--- NOTE | 2024-03-04 05:50 | PC.NURSE ---
aware of pt updated bp, okayed at this time.
[2024-03-04] MEDS: Dextrose 10 % 250 ML 750 ML IV (07:30)
[2024-03-04 07:36] LABS: Glucose, Whole Blood 75 mg/dL (60-115)
--- NOTE | 2024-03-04 08:22 | HO.PM.IMPN ---
Subjective Subjective Date of Service: 03/04/24 Interval History: Seen in follow up for CVA Interval history: still with some expressive aphasia, chronic R sided facial droop. Requesting to eat Review of Systems Review of Systems: Yes all other systems are reviewed and are negative Physical Exam Vital Signs: Vital Signs: Last Vital Signs Temp 98.4 F 03/04/24 06:44 Pulse 60 03/04/24 06:44 Resp 16 03/04/24 06:44 BP 179/66 H 03/04/24 06:44 Pulse Ox 98 03/04/24 06:44 O2 Del Method Room Air 03/04/24 06:44 BMI result Body Mass Index 19.7 Constitutional - Awake and Alert, No apparent distress Eyes - PERRLA, EOMI Cardiovascular - S1S2, RRR, No edema Respiratory - Normal lung expansion, Normal respiratory effort, No respiratory distress, CTA bilaterally Gastrointestinal - NT / ND; +BS; No rebound or guarding Extremities - no calf tenderness bilaterally, no swelling Skin - Warm/Dry Neurological - Alert & oriented x3, R sided facial droop, expressive aphasia, otherwise CN II-XII in tact Psychological - Appropriate affect Objective Data Active Medications Acetaminophen (Acetaminophen 325 Mg Tablet) 650 mg PO Q6H PRN PRN Reason: Pain, Mild (Pain Scale 1-3), fever or headache Aspirin (Aspirin 81 Mg Tab.Chew) 81 mg PO DAILY [facility] Atorvastatin Calcium (Atorvastatin Calcium 80 Mg Tablet) 80 mg PO BEDTIME [facility] Last Admin: 03/03/24 22:59 Dose: Not Given Documented By: KAM Non-Admin Reason: failed swallow eval Benzonatate (Benzonatate 100 Mg Capsule) 100 mg PO TID PRN PRN Reason: Cough Calcium Carbonate (Calcium Carbonate 750 Mg Tab.Chew) 750 mg PO Q4H PRN PRN Reason: Heartburn Glucose (Glucose Gel 15 Gm Gel..Gram.) 15 gm PO Q15M PRN; Protocol PRN Reason: per Hypoglycemia Standing Ord. Dextrose (D10) 250 mls @ 750 mls/hr IV Q15M PRN; Protocol PRN Reason: per Hypoglycemia Standing Ord. Last Admin: 03/04/24 07:30 Dose: 750 mls/hr Documented By: JOE Insulin Human Lispro (Insulin Lispro 100 Unit/Ml 3 Ml Vial) 0 unit SUBCUT QIDACHS [facility]; Protocol Last Admin: 03/04/24 08:10 Dose: Not Given Documented By: JOE Non-Admin Reason: No Insulin Coverage Magnesium Hydroxide (Milk Of Magnesia 30 Ml Oral.Susp) 30 ml PO DAILY PRN PRN Reason: Constipation Melatonin (Melatonin 3 Mg Tablet) 6 mg PO BEDTIME PRN PRN Reason: Insomnia Ondansetron HCl (Ondansetron Hcl 4 Mg/2 Ml Vial) 4 mg IVPUSH Q8H PRN PRN Reason: Nausea and Vomiting Risperidone (Risperidone 1 Mg Tablet) 1 mg PO BEDTIME [facility] Last Admin: 03/03/24 22:59 Dose: Not Given Documented By: KAM Non-Admin Reason: failed swallow eval Sodium Chloride (0.9 % Sodium Chloride Flush 3 Ml Syringe) 3 ml IVFLUSH QSHIFT [facility] Last Admin: 03/04/24 08:10 Dose: Not Given Documented By: JOE Non-Admin Reason: Med Not Available Labs 03/03/24 16:42 03/03/24 16:42 Labs: Laboratory Results - last 24 hr 03/03/24 03/03/24 03/04/24 16:01 16:42 07:33 MCV 79.3 L MCH 25.1 L MCHC 31.6 RDW 18.0 H Plt Count 192 MPV Not Reportable Immature Gran % (Auto) 0.4 Neut % (Auto) 62.4 Lymph % (Auto) 25.5 Dickinson % (Auto) 9.1 Eos % (Auto) 2.0 Baso % (Auto) 0.6 Lymph # (Auto) 1.3 Dickinson # (Auto) 0.5 Eos # (Auto) 0.1 Baso # (Auto) 0.0 Abs Immat Gran (auto) 0.02 Absolute Neuts (auto) 3.2 Absolute Nucleated RBC 0.000 Nucleated RBC % (auto) 0.0 Smear Tech's Comments VERIFIED PT 20.6 H D Whole Blood PT 19.6 H INR 1.7 H Whole Blood INR 1.6 H APTT 36.0 Anion Gap 15 Estim Creat Clear Calc 48.6 Estimated GFR > 60 POC Glucose 75 Random Glucose 117 H Calcium 8.7 Magnesium 1.6 Total Bilirubin 0.2 Direct Bilirubin < 0.2 AST 43 H ALT 44 H Alkaline Phosphatase 143 H Troponin I High Sens 6.6 D Total Protein 6.7 Albumin 3.3 L Triglycerides 92 Cholesterol 92 LDL Cholesterol, Calc 35 HDL Cholesterol 39 L Assessment and Plan (1) Syncope: Status: Acute (2) Expressive aphasia: Status: Acute Plan 63-year-old female with a PMH significant for?hx of recurrent CVAs with sequela of bilateral hemiparesis R>L, HTN, [id number] type 2 diabetes, diabetic polyneuropathy, diabetic retinopathy, HLD, mild intermittent asthma, and GERD who presents to the ED for evaluation of syncopal episode with altered mentation, difficulty word finding, and slurred speech. Pt will be admitted to the hospital for further workup of dysarthria with continued right-sided facial droop, right upper extremity weakness and difficulty word finding concerning for acute CVA. Syncope episode with focal deficits Patient with expressive aphasia, RUE weakness, blurriness, slurred speech, left sided facial droop CT of head negative for acute stroke Patient with multiple prior CVAs, including on 10/1922, 03/06/2023, 04/13/2023, 04/24/2023, 06/08/2023 Will hold on MRI or echo or carotid ultrasound pending Neurology input Continue aspirin, statin, Eliquis once STRUCTURAL ANALYST eval NPO pending speech evaluation Lipid panel, LDL at goal, continue statin PT/OT evaluation Monitor on telemetry Diet NPO pending speech evaluation. Continue maintenance fluids Previously recommendations: Chopped/advanced (NDD3) with nectar thick liquids; Small sips, slow pace, 1 step at a time; Oral medications: Crushed with puree HTN Will allow for permissive hypertension Hold antihypertensives for now Non-insulin dependent type 2 diabetes Hold metformin Sliding-scale insulin, diabetic diet Mild intermittent asthma Not in acute exacerbation Continue home inhalers Mood disorder Continue home mood stabilizers Chronic mircocytic anemia aboe transfusion threshold iron studes pending Full Code DVT Prophylaxis: On Eliquis Pt will require ongoing hospital stay for acute cva not back to baseline awaiting neurology evaluation and further recommendations and will require ongoing neurochecks Quality Stroke Does the patient have a stroke diagnosis?: No Reason for No Anti-thrombotic by Day Two: Contraindicated (Not a candidate for tNK as she is anticoagulated on Eliquis) VTE Prior VTE?: No VTE Risk Level:: Medical - moderate - high VTE Device Contraindication: Treatment Not Indicated VTE Drug Contraindication: N/A - Med Ordered
[2024-03-04 08:57] LABS: Glucose, Whole Blood 143 mg/dL (60-115)
--- NOTE | 2024-03-04 09:47 | PHA.MEDREC ---
Addendum entered by Светлана Troy [facility] 03/04/24 11:32: Spoke to daughter Maddie at bedside and confirmed that patient is on both Eliquis and Brilinta. Daughter said that the patient was seen at [facility] in [place]. Brilinta prescriber was aware that pt is currently on Eliquis and wanted to add in Brilinta and discontinued aspirin. Addendum entered by Светлана Troy RP 03/04/24 10:26: Med rec was reviewed by [facility]. Original Note: Pharmacy Consult ? Medication Reconciliation Pharmacy has completed the medication reconciliation. Spoke to patient though labor standards director service. Patient was very sweet, however she was a poor historian. she said she doesn't know what she takes and we should call her daughter Maddie. Spoke to Maddie over the phone to confirm med list. Daughter states patient is no longer taking Amlodipine, Aspirin 81 mg daily, Furosemide 20 mg daily, Miconazole Nitrate 2% vag cream, Mupirocin 2% ointment bid. Daughter also states patient isn't on any antibiotics at this time.
[2024-03-04] MEDS: Aspirin 81 MG TAB.CHEW PO (10:57)
[2024-03-04] MEDS: Lactated Ringers 1,000 ML 100 ML IVCONT ×2 (11:01→20:09)
--- NOTE | 2024-03-04 11:02 | PC.NURSE ---
family at bedside. pt is alert. follows commands. left facial droop noted. family states patient is followed by Melany Crabtree.
[2024-03-04 11:09] LABS: Glucose, Whole Blood 103 mg/dL (60-115)
--- NOTE | 2024-03-04 13:03 | P.CNNE_ITS ---
History of Present Illness Data of Consult Service Date: 03/04/24 Primary Care Provider: Ludy Alonso MD [facility] Reason for consult: Change in mental status 63 years old woman with underlying history of microvascular ischemic lesions including a right thalamic infarct causing left hemiparesis came to hospital with change in mental status difficulty speaking and confusion. No obvious etiology of this was found. I saw her in emergency room. Review of Systems 2 Review of Systems: She was complaining of headache. [facility] Past Medical History Medical History History of CVA (cerebrovascular accident) Dysphagia Hypertension Hypertensive urgency Cervical osteoarthritis Osteoarthritis of right glenohumeral joint Shoulder pain, right BOB positive CVA (cerebral vascular accident) HTN (hypertension) Primary biliary cholangitis Fatty liver disease, nonalcoholic History of umbilical hernia Postural hypotension Sjogrens syndrome GERD (gastroesophageal reflux disease) History of sleep apnea Asthma Subclinical hypothyroidism Hypertension Dyslipidemia Diabetic retinopathy associated with type 2 diabetes mellitus Diabetic polyneuropathy associated with type 2 diabetes mellitus Hypoglycemia after GI (gastrointestinal) surgery Diabetes type 2, uncontrolled Family History Family History Father [place] (myocardial infarction) Diabetes mellitus Mother Diabetes mellitus CVA (cerebral vascular accident) Maternal Grandmother Stomach cancer Sister Hemorrhagic cerebrovascular accident (CVA) Surgical History Surgical History Hx of dilation and curettage Hx of tonsillectomy History of laparoscopic appendectomy History of carpal tunnel release Hx of colonoscopy History of esophagogastroduodenoscopy (EGD) History of partial hysterectomy Hx of section Hx of gastric bypass Social History Social History Household Members: Family Housing: House Are you a primary post acute care nurse practitioner to a significant other at home: No Do you presently have visiting nurse or other home services: Yes Unable to assess alcohol history related to: Unable to respond Alcohol intake: never Patient Tobacco Use Status: Never used Tobacco Smoked in Last 30 Days: No e-Cigarette/Vaping Use: Never Used Second Hand Smoke Exposure: No Use of substances other than those prescribed or required for medical reasons: Unable to respond Advance Directives: Yes Advance Directives on File: Yes Advance Directives Date on File: 03/07/23 Do you have a plan to hurt others: No Plan Nutrition Risks: Difficulty swallowing service: No Current occupational status: disabled Cognitive needs: Yes (wheelchait) Hearing needs: No Vision needs: No Meds Allergies Allergy/AdvReac Type Severity Reaction Status Date / Time Latex, Natural Rubber Allergy Intermediate Rash Verified 03/03/24 16:16 morphine Allergy Intermediate Abdominal Verified 03/03/24 16:16 Pain Sulfa (Sulfonamide AdvReac Intermediate Stomach Verified 03/03/24 16:16 Antibiotics) Upset [SULFA (SULFONAMIDE ANTIBIOTICS)] Active Medications: Current Medications Acetaminophen (Acetaminophen 325 Mg Tablet) 650 mg PO Q6H PRN PRN Reason: Pain, Mild (Pain Scale 1-3), fever or headache Albuterol Sulfate (Albuterol Sulfate 90 Mcg 8 Gm Inhaler) 1 puff INHALE RQID PRN PRN Reason: Shortness Of Breath Or Wheezing Apixaban (Apixaban 5 Mg Tablet) 5 mg PO BID [facility] Artificial Tears (Artificial Tears 15 Ml Drops) 2 drop EYE-RIGHT Q4H PRN PRN Reason: Dry Eyes Aspirin (Aspirin 81 Mg Tab.Chew) 81 mg PO DAILY [facility] Last Admin: 03/04/24 10:57 Dose: 81 mg Atorvastatin Calcium (Atorvastatin Calcium 80 Mg Tablet) 80 mg PO BEDTIME [facility] Last Admin: 03/03/24 22:59 Dose: Not Given Atorvastatin Calcium (Atorvastatin Calcium 80 Mg Tablet) 80 mg PO BEDTIME [facility] Benzonatate (Benzonatate 100 Mg Capsule) 100 mg PO TID PRN PRN Reason: Cough Calcium Carbonate (Calcium Carbonate 750 Mg Tab.Chew) 750 mg PO Q4H PRN PRN Reason: Heartburn Glucose (Glucose Gel 15 Gm Gel..Gram.) 15 gm PO Q15M PRN; Protocol PRN Reason: per Hypoglycemia Standing Ord. Dextrose (D10) 250 mls @ 750 mls/hr IV Q15M PRN; Protocol PRN Reason: per Hypoglycemia Standing Ord. Last Admin: 03/04/24 07:30 Dose: 750 mls/hr Lactated Ringer's (Lr) 1,000 mls @ 100 mls/hr IVCONT .Q10H [facility] Last Admin: 03/04/24 11:01 Dose: 100 mls/hr Loratadine (Loratadine 10 Mg Tablet) 10 mg PO BEDTIME [facility] Magnesium Hydroxide (Milk Of Magnesia 30 Ml Oral.Susp) 30 ml PO DAILY PRN PRN Reason: Constipation Magnesium Oxide (Magnesium Oxide 400 Mg Tablet) 400 mg PO DAILY [facility] Melatonin (Melatonin 3 Mg Tablet) 6 mg PO BEDTIME PRN PRN Reason: Insomnia Multivitamins/Vitamin C (Multivitamin Tablet) 1 tab PO DAILY [facility] Non-Formulary Medication (Acarbose) 50 mg PO TID [facility] Non-Formulary Medication (Ursodiol) 250 mg PO TID [facility] Ondansetron HCl (Ondansetron Hcl 4 Mg/2 Ml Vial) 4 mg IVPUSH Q8H PRN PRN Reason: Nausea and Vomiting Polyethylene Glycol (Polyethylene Glycol 3350 17 Gm Powd.Pack) 17 gm PO DAILY PRN PRN Reason: constipation Risperidone (Risperidone 1 Mg Tablet) 1 mg PO BEDTIME [facility] Last Admin: 03/03/24 22:59 Dose: Not Given Risperidone (Risperidone 1 Mg Tablet) 1 mg PO BEDTIME [facility] Sertraline HCl (Sertraline Hcl 100 Mg Tablet) 200 mg PO DAILY [facility] Sodium Chloride (0.9 % Sodium Chloride Flush 3 Ml Syringe) 3 ml IVFLUSH QSHIFT [facility] Last Admin: 03/04/24 08:10 Dose: Not Given Ticagrelor (Ticagrelor 90 Mg Tablet) 90 mg PO Q12H [facility] Vitamin D (Cholecalciferol (Vitamin D3) 25 Mcg Tablet) 50 mcg PO DAILY [facility] Home Medications ?Medication ?Instructions ?Recorded ?Confirmed ?Last Taken ?Type albuterol sulfate 90 mcg/actuation 1 inh inhalation QID PRN Shortness 04/28/20 03/04/24 03/06/23 History aerosol inhaler Of Breath Or Wheezing polyethylene glycol 3350 17 gram 17 g PO DAILY PRN constipation 10/25/22 03/04/24 10/25/22 History oral powder packet (Purelax) peg [id number] 1 2 drp ophthalmic-Right Q4H PRN Dry 04/22/23 03/04/24 Unknown History %-0.2 %-0.2 % eye drops Eyes (Artificial Tears ([id number])) Aloe scented personal cleansing 12/22/23 Unknown History wipes ticagrelor 90 mg tablet (Brilinta) 90 mg PO Q12H 03/04/24 03/04/24 03/03/24 History Physical Exam 2 Vital Signs: Vital Signs: Last Vital Signs Temp 98.4 F 03/04/24 06:44 Pulse 61 03/04/24 08:52 Resp 16 03/04/24 08:52 BP 204/79 H 03/04/24 08:54 Pulse Ox 98 03/04/24 08:52 O2 Del Method Room Air 03/04/24 08:52 BMI result Body Mass Index 19.7 Neuro: Other: She was alert and awake speaking softly and answering appropriately. She said that she was hungry and wanted to eat soup. There was mild left-sided weakness. Results Labs 03/03/24 16:42 03/03/24 16:42 Labs: Short CBC 03/03/24 Range/Units 16:42 WBC 5.1 (4.8-10.8) X10*3/uL Hgb 10.3 L (12.0-16.0) g/dl Hct 32.6 L (37.0-47.0) % Plt Count 192 (160-400) X10*3/uL BMP 03/03/24 16:42 Sodium 143 Potassium 4.3 Chloride 117 H Carbon Dioxide 15 L BUN 30 H Creatinine 0.86 Calcium 8.7 Liver Function 03/03/24 Range/Units 16:42 Total Bilirubin 0.2 (0.0-1.0) mg/dL Direct Bilirubin < 0.2 (0.0-0.5) mg/dL AST 43 H (5-31) U/L ALT 44 H (0-31) U/L Alkaline Phosphatase 143 H (39-117) U/L Albumin 3.3 L (3.5-5.0) g/dL Head CT revealed moderate cerebellar atrophy and mild chronic microvascular ischemic changes Assessment and Plan (1) Encephalopathy: Qualifiers: Encephalopathy type: unspecified encephalopathy Qualified Code(s): G 93.40 - Encephalopathy, unspecified Status: Acute 63 years old woman with previous history of microvascular ischemic disease including right thalamic infarct causing left hemiparesis was in hospital with change in mental status difficulty speaking and confusion. Now she was somewhat better but no obvious etiology was found. I recommend an EEG and a noncontrast MRI of brain for better definition. Procedures Date of Service Date of Service: 03/04/24
[2024-03-04 13:47] LABS: Anion Gap 11 (12-20); Blood Urea Nitrogen 23 mg/dL (9-16); Calcium 8.4 mg/dL (8.4-10.2); Carbon Dioxide 17 mmol/L (22-29); Chloride 117 mmol/L (96-108); Creatinine Clr Calc Pharmacy 58.9; Estimated Glomerular Filt Rate > 60; Glucose Random 101 mg/dL (60-115); Iron 63 mcg/dL (30-160); Percent Iron Saturation 23 % (15-50); Potassium 4.1 mmol/L (3.3-5.1); Sodium 141 mmol/L (135-145); Total Iron Binding Capacity 270 mcg/dL (228-428); Unsaturated Iron Binding 207 ug/dL
[2024-03-04 14:12] LABS: Ferritin 43 ng/mL (10-250)
[2024-03-04] MEDS: Ticagrelor 90 MG TABLET PO (14:14)
[2024-03-04 14:34] LABS: Glucose, Whole Blood 156 mg/dL (60-115)
--- NOTE | 2024-03-04 16:10 | MHC.CM.PN ---
IMM 03/04/24, Pt lives with her , she has 60 hours of DRUG SAFETY SPECIALIST services per week. She has DME of: walker, w/c, joelle lift, commode, bath chair. She has daily visits from a nurse, family will let CM know the name of agency. HCP is on file and confirmed: [facility]. Family can transport home at DC. DCP: home, resume services. CM to follow and assist with DC plan.
--- NOTE | 2024-03-04 16:17 | MHC.EDTECH ---
this tech took over this assignment at 1500 did vitals patitent is calm and resting
--- NOTE | 2024-03-04 16:18 | PC.NURSE ---
pt sitting up, has had lunch. no distress. skin pwd. left facial droop remains unchanged from the am. family aware of change in diet status. smiling.
--- NOTE | 2024-03-04 16:42 | PC.NURSE ---
unable to demonstrate BLE strength (is baseline). left facial droop remains but slightly less so. awaits MRI. unable to demonstrate BUE strength.
[2024-03-04 16:52] LABS: Glucose, Whole Blood 122 mg/dL (60-115)
--- NOTE | 2024-03-04 17:44 | MHC.SL.SWA ---
Speech Pathologist Impression: Risk of Aspiration Due to: Dysphasia Diet Status: Recommend continue ST for further evaluation and treatment of dysphagia and aphasia/cognition. Liquid Consistency and Strategies for Safe Swallow: Liquid Intake Recommendation: [place] Thick Liquid Intake Strategies: Small Sips Solid Food Consistency: Dietary Recommendations: Chopped/Advanced (NDD3) Oral Medication Intake: Whole with Puree Please contact the pharmacy regarding appropriate crushable or liquid drug formulations that are available whenever modified delivery is recommended. Compensatory Strategies and Precautions to be Taken for Safe Swallow: Sitting Upright (90 deg) Liquids from Straw Small Bites and Sips Alternate Liquids/Solids Rate of Ingestion Change Oral Check Avoid Specific Foods Supervision While Eating and Drinking for Safe Swallow: Foods to Avoid: Hard tough to chew solids; dry, crunchy, or sticky foods; mixed textures Swallowing Recommended Treatments: Compens. Strategy Educat. Recommendation for Speech: Inpatient Speech Therapy Comment: Recommend CONTINUE current diet of CHOPPED/ADVANCED SOLIDS (NDD3) and NECTAR-THICK LIQUIDS. MEDS WHOLE with PUREE SOLIDS. STRAWS OK. Pt is a 1:1 FEED. EDITORIAL INTERN will continue to follow. Timeline to reassess: PRN Technician Automatic Clinican/Clinical Fellow: No Supervisory Statement: I have reviewed and agree with the student/clinical fellow's documentation: N/A Speech Language Pathologist: Tony Maldonado M.A., CCC-EDITORIAL INTERN
--- NOTE | 2024-03-04 18:30 | MHC.EDTECH ---
clean patient up put a new pure wick
[2024-03-04 19:58] LABS: Glucose, Whole Blood 168 mg/dL (60-115)
--- NOTE | 2024-03-04 20:01 | MHC.EDTECH ---
Pt cleaned and changed into a new hospital gown after voiding. Purwick replaced and canister emptied
[2024-03-04] MEDS: risperiDONE 1 MG TABLET PO (20:25)
[2024-03-04] MEDS: Apixaban 5 MG TABLET PO (20:25)
[2024-03-04] MEDS: Loratadine 10 MG TABLET PO (20:25)
[2024-03-04] MEDS: Atorvastatin Calcium 80 MG TABLET PO (20:25)
[2024-03-04] MEDS: Insulin Lispro 100 UNIT/ML 3 ML VIAL SUBCUT (20:26)
--- NOTE | 2024-03-05 | EEG_ITS ---
FINDINGS: Waking background activity consists of a low voltage fast frequencies seen diffusely intermixed with low-voltage posterior 9 to 10 hertz alpha frequency. Photic stimulation is without activation. Hyperventilation was omitted. T4 electrode artifact is seen throughout most of the record. No focal, lateralizing, or paroxysmal discharges are seen. IMPRESSION: This waking EEG is within normal limits. MD KATHE Guillen/GUIDO / [id number]
[2024-03-05] MEDS: Lactated Ringers 1,000 ML 100 ML IVCONT ×2 (00:10→09:00)
[2024-03-05] MEDS: 0.9 % Sodium Chloride Flush 3 ML SYRINGE IVFLUSH (00:10)
[2024-03-05 00:12] VITALS: BP 155/67; PULSE 65; RESP 20; TEMP 36.4; O2SAT 98
[2024-03-05] MEDS: Ticagrelor 90 MG TABLET PO (01:14)
[2024-03-05 03:19] VITALS: BP 140/65; PULSE 70; RESP 20; TEMP 36.4; O2SAT 99
[2024-03-05 07:09] LABS: Glucose, Whole Blood 102 mg/dL (60-115)
--- NOTE | 2024-03-05 07:27 | HO.PM.IMPN ---
Subjective Subjective Date of Service: 03/05/24 Physical Exam Vital Signs: Vital Signs: Last Vital Signs Temp 97.5 F 03/05/24 03:19 Pulse 70 03/05/24 03:19 Resp 20 03/05/24 03:19 BP 140/65 H 03/05/24 03:19 Pulse Ox 99 03/05/24 03:19 O2 Del Method Room Air 03/05/24 03:19 BMI result Body Mass Index 19.7 Objective Data Active Medications Acetaminophen (Acetaminophen 325 Mg Tablet) 650 mg PO Q6H PRN PRN Reason: Pain, Mild (Pain Scale 1-3), fever or headache Albuterol Sulfate (Albuterol Sulfate 90 Mcg 8 Gm Inhaler) 1 puff INHALE RQID PRN PRN Reason: Shortness Of Breath Or Wheezing Apixaban (Apixaban 5 Mg Tablet) 5 mg PO BID [facility] Last Admin: 03/04/24 20:25 Dose: 5 mg Documented By: TIMOTHY Artificial Tears (Artificial Tears 15 Ml Drops) 2 drop EYE-RIGHT Q4H PRN PRN Reason: Dry Eyes Aspirin (Aspirin 81 Mg Tab.Chew) 81 mg PO DAILY [facility] Last Admin: 03/04/24 10:57 Dose: 81 mg Documented By: JOE Atorvastatin Calcium (Atorvastatin Calcium 80 Mg Tablet) 80 mg PO BEDTIME [facility] Last Admin: 03/04/24 20:22 Dose: Not Given Documented By: TIMOTHY Non-Admin Reason: Duplicate Order Atorvastatin Calcium (Atorvastatin Calcium 80 Mg Tablet) 80 mg PO BEDTIME [facility] Last Admin: 03/04/24 20:25 Dose: 80 mg Documented By: TIMOTHY Benzonatate (Benzonatate 100 Mg Capsule) 100 mg PO TID PRN PRN Reason: Cough Calcium Carbonate (Calcium Carbonate 750 Mg Tab.Chew) 750 mg PO Q4H PRN PRN Reason: Heartburn Glucose (Glucose Gel 15 Gm Gel..Gram.) 15 gm PO Q15M PRN; Protocol PRN Reason: per Hypoglycemia Standing Ord. Dextrose (D10) 250 mls @ 750 mls/hr IV Q15M PRN; Protocol PRN Reason: per Hypoglycemia Standing Ord. Last Infusion: 03/04/24 07:50 Dose: Infused Documented By: TIMOTHY Lactated Ringer's (Lr) 1,000 mls @ 100 mls/hr IVCONT .Q10H [facility] Last Admin: 03/05/24 00:10 Dose: 100 mls/hr Documented By: RENO Insulin Human Lispro (Insulin Lispro 100 Unit/Ml 3 Ml Vial) 0 unit SUBCUT QIDACHS [facility]; Protocol Last Admin: 03/05/24 07:22 Dose: Not Given Documented By: DANIEL Non-Admin Reason: No Insulin Coverage Loratadine (Loratadine 10 Mg Tablet) 10 mg PO BEDTIME [facility] Last Admin: 03/04/24 20:25 Dose: 10 mg Documented By: TIMOTHY Magnesium Hydroxide (Milk Of Magnesia 30 Ml Oral.Susp) 30 ml PO DAILY PRN PRN Reason: Constipation Magnesium Oxide (Magnesium Oxide 400 Mg Tablet) 400 mg PO DAILY [facility] Melatonin (Melatonin 3 Mg Tablet) 6 mg PO BEDTIME PRN PRN Reason: Insomnia Multivitamins/Vitamin C (Multivitamin Tablet) 1 tab PO DAILY [facility] Pt Own (Acarbose 50 (Mg Tablet)) 50 mg PO TID [facility] Last Admin: 03/04/24 20:26 Dose: 50 mg Documented By: TIMOTHY Pt Own (Ursodiol 250 (Mg Tablet)) 250 mg PO TID [facility] Last Admin: 03/04/24 20:26 Dose: 250 mg Documented By: TIMOTHY Ondansetron HCl (Ondansetron Hcl 4 Mg/2 Ml Vial) 4 mg IVPUSH Q8H PRN PRN Reason: Nausea and Vomiting Polyethylene Glycol (Polyethylene Glycol 3350 17 Gm Powd.Pack) 17 gm PO DAILY PRN PRN Reason: constipation Risperidone (Risperidone 1 Mg Tablet) 1 mg PO BEDTIME [facility] Last Admin: 03/04/24 20:23 Dose: Not Given Documented By: TIMOTHY Non-Admin Reason: Duplicate Order Risperidone (Risperidone 1 Mg Tablet) 1 mg PO BEDTIME [facility] Last Admin: 03/04/24 20:25 Dose: 1 mg Documented By: TIMOTHY Sertraline HCl (Sertraline Hcl 100 Mg Tablet) 200 mg PO DAILY [facility] Sodium Chloride (0.9 % Sodium Chloride Flush 3 Ml Syringe) 3 ml IVFLUSH QSHIFT [facility] Last Admin: 03/05/24 00:10 Dose: 3 ml Documented By: RENO Ticagrelor (Ticagrelor 90 Mg Tablet) 90 mg PO Q12H [facility] Last Admin: 03/05/24 01:14 Dose: 90 mg Documented By: RENO Vitamin D (Cholecalciferol (Vitamin D3) 25 Mcg Tablet) 50 mcg PO DAILY [facility] Labs 03/03/24 16:42 03/04/24 13:03 Labs: Laboratory Results - last 24 hr 03/03/24 03/04/24 03/04/24 15:55 07:33 08:54 Anion Gap Estim Creat Clear Calc Estimated GFR POC Glucose 122 H 75 143 H Random Glucose Calcium Iron TIBC % Saturation Unsat Iron Binding Ferritin 03/04/24 03/04/24 03/04/24 11:05 13:03 14:31 Anion Gap 11 L Estim Creat Clear Calc 58.9 Estimated GFR > 60 POC Glucose 103 156 H Random Glucose 101 Calcium 8.4 Iron 63 TIBC 270 % Saturation 23 Unsat Iron Binding 207 Ferritin 43 03/04/24 03/05/24 19:37 07:05 Anion Gap Estim Creat Clear Calc Estimated GFR POC Glucose 168 H 102 Random Glucose Calcium Iron TIBC % Saturation Unsat Iron Binding Ferritin Quality Stroke Does the patient have a stroke diagnosis?: No Reason for No Anti-thrombotic by Day Two: Contraindicated (Not a candidate for tNK as she is anticoagulated on Eliquis) VTE Prior VTE?: No VTE Risk Level:: Medical - moderate - high VTE Device Contraindication: Treatment Not Indicated VTE Drug Contraindication: N/A - Med Ordered
[2024-03-05 07:40] VITALS: BP 185/72; PULSE 62; RESP 20; TEMP 36.4; O2SAT 98
[2024-03-05 08:25] VITALS: BP 148/70
[2024-03-05] MEDS: Magnesium Oxide 400 MG TABLET PO (08:51)
[2024-03-05] MEDS: Cholecalciferol (Vitamin D3) 25 MCG TABLET 50 MCG PO (08:51)
[2024-03-05] MEDS: Aspirin 81 MG TAB.CHEW PO (08:51)
[2024-03-05] MEDS: Apixaban 5 MG TABLET PO (08:51)
[2024-03-05] MEDS: Multivitamin TABLET 1 TAB PO (08:51)
[2024-03-05] MEDS: Sertraline HCL 100 MG TABLET 200 MG PO (08:51)
--- NOTE | 2024-03-05 09:47 | MHC.CM.PN ---
Pt has daily nurse visits from [facility]. PT and OT have rec. that she have home services. CM has sent referral to [facility] to ask if they can provide these services.
[2024-03-05 10:54] LABS: Glucose, Whole Blood 135 mg/dL (60-115)
[2024-03-05 11:12] VITALS: BP 148/82; PULSE 69; RESP 16; TEMP 36.1; O2SAT 98
--- NOTE | 2024-03-05 14:40 | MHC.SL.SWA ---
Speech Pathologist Impression: Oropharyngeal dysphgia Risk of Aspiration Due to: Weak voice Dysphasia Diet Status: NO CHANGE Liquid Consistency and Strategies for Safe Swallow: Liquid Intake Recommendation: [place] Thick Liquid Intake Strategies: Small Sips Solid Food Consistency: Dietary Recommendations: Chopped/Advanced (NDD3) Oral Medication Intake: Whole with Puree Please contact the pharmacy regarding appropriate crushable or liquid drug formulations that are available whenever modified delivery is recommended. Compensatory Strategies and Precautions to be Taken for Safe Swallow: Sitting Upright (90 deg) Liquids from Straw Small Bites and Sips Alternate Liquids/Solids Rate of Ingestion Change Oral Check Avoid Specific Foods Supervision While Eating and Drinking for Safe Swallow: Intermittent Supervision Foods to Avoid: Hard tough to chew solids; dry, crunchy, or sticky foods; mixed textures Swallowing Recommended Treatments: Compens. Strategy Educat. Recommendation for Speech: Inpatient Speech Therapy MBSS (Inpatient vs. Outpatient) Comment: Recommend patient CONTINUE w/ CHOPPED/ADVANCED SOLIDS (NDD3) and NECTAR THICK liquids w/ pills CRUSHED in PUREE. Pt presents w/ imprecise articulation, moderate-severely quiet voice, and oropharyngeal dysphagia. It is recommended that pt pursue MBSS (inpatient vs. outpatient) d/t reported s/s aspiration on thin liquids 1-2x/day for approximately 8 months since last seen by MERCHANDISE TEAM MANAGER during hospitalization in June 2023. MBSS would assist to rule in/out silent aspiration and provide better understanding of s/s aspiration on thin liquids. It is recommended that patient continue MERCHANDISE TEAM MANAGER tx at next level of care for dysphagia, dysarthria, and voice. Asbestos Cloth Inspector Clinican/Clinical Fellow: No Supervisory Statement: I have reviewed and agree with the student/clinical fellow's documentation: N/A Speech Language Pathologist: Falguni Ly M.A., [facility]3]-MERCHANDISE TEAM MANAGER
--- NOTE | 2024-03-05 14:55 | PM.DS ---
DS: Providers Provider Date of Service: 03/05/24 Date of admission: 03/03/24 20:54 Date of discharge: 03/05/24 Primary care physician: Ludy Alonso MD Admitting clinician: David Cameron Attending physician on admission: Aj Jordan Consults: 03/03/24 20:57 Consult to Neurology Routine Consulting Provider: [facility] Reason for consultation: ?CVA, hx of recurrentCVAs 03/05/24 00:48 Consult to Wound Care Routine Reason for consultation: Tx recs; stage II coccyx, fungal and open area left groin Has provider been notified: Yes Attending physician on discharge: Frank iMx Discharging clinician: Billie Donis DS: Diagnosis Discharge Diagnosis (1) Encephalopathy: Status: Acute DS: Summary Hospital Course Hospital Course: HPI by David Cameron PA-C 03/03: Chief Complaint: AMS, syncope Pt is a 63-year-old female with a PMH significant for?hx of recurrent CVAs with sequela of bilateral hemiparesis R>L, HTN, [id number] type 2 diabetes, diabetic polyneuropathy, diabetic retinopathy, HLD, mild intermittent asthma, and GERD who presents to the ED for evaluation of syncopal episode with altered mentation, difficulty word finding, and slurred speech. Patient is Prydeinig-speaking only and shirt bander services utilized. Patient does not remember the incident in HPI supplemented with chart and provider review. 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 Was also noted to have left-sided facial droop which states is new as previously has had chronic right-sided facial droop. Patient herself reports some acute blurriness and continued difficulty word finding. Endorses worsening right sided weakness especially in her arm. Denies headache. No numbness or tingling in extremities. No chest pressure/pain or palpitations. Chronic shortness of breath at baseline. No fever or chills. Patient is not a tNK candidate due to anticoagulation with apixaban.? In the ED pt was hypertensive up to 170/62, vitals otherwise WNL. Labs were grossly unremarkable and around baseline for patient. No leukocytosis. Stable microcytic anemia of 10.3/32.6. No significant abnormalities. Renal function baseline. Hepatic function showing mild transaminitis, around baseline. CT?of head showing no evidence of acute intracranial hemorrhage or edematous territorial infarction, but showed age-indeterminate hypodensity overlying the corpus callosum, and multiple chronic lacunar infarcts. EKG demonstrated normal sinus without evidence of significant ST elevations or depressions. Pt will be admitted to the hospital for further workup of dysarthria with continued left-sided facial droop, right upper extremity weakness and difficulty word finding concerning for acute CVA. Hospital course: Admitted to med/tele out of concern for acute CVA given known history of recurrent stroke with acute onset of worsening dysarthria, word finding difficulty, altered mentation, and syncope. No seizure activity noted. Monitor on neuro checks. Pt continues to have left sided facial sroop and weakness which is her baseline. She has very quiet voice with imprecise articulation which is also consistent with baseline. Orthostatic VS negative. Labs unremarkable. No evidence of acute infection. Was evaluated by neurology recommending MRI which was without any acute abnormality including acute CVA. Also recommended EEG which was taken but not read at time of discharge. Overall, neurology returned ot baseline, evaluated by PT recommending hoem services and patient desiring to go home. Will discharge home with services including PT/OT/FOOD AND BEVERAGE CHECKER and call with EEG results in follow up. She will be continue on brillinta and eliquis and is advised to schedule appt soon with [facility] where she has been following given history of recurrent strokes (at least 5 since October 2022). Follow up with PCP. Syncope episode with focal deficits Patient with expressive aphasia, RUE weakness, blurriness, slurred speech, left sided facial droop. Continues with soft speech and inarticulate speech and left sided facial droop/sided weakness which is baseline CT of head negative for acute stroke Patient with multiple prior CVAs, including on 10/1922, 03/06/2023, 04/13/2023, 04/24/2023, 06/08/2023 Seen by neurology recommending MRI of the brain and EEG: MRI brain negative for acute intracranial abnormalities which shows moderate underlying microangiopathy and generalized cerebral volume loss as well as chronic lacunar infarcts of the left centrum semiovale/schulz radiata white matter, right thalamus, and liana. EEG ordered with results pending per Neurology Evaluated by FOOD AND BEVERAGE CHECKER recommending pt be continued on NDD3 chopped/advanced diet with nectar thick liquids. Laron sips, slow pace 1 sip at a time. Crush pill sin puree. Reviewed with patient Continue Brilinta and Eliquis LDL at goal, continue atorvastatin 80 mg daily Outpatient services with PT/OT/FOOD AND BEVERAGE CHECKER Advised to schedule follow-up appointment with [facility] HTN Antihypertensives held during admission to allow for permissive hypertension. However, acute CVA ruled out. Resume losartan 12.5 mg daily Non-insulin dependent type 2 diabetes Resume metofrmin on discharge. Diabetic diet Mild intermittent asthma Not in acute exacerbation Continue home inhalers Mood disorder Continue home mood stabilizers Chronic mircocytic anemia above transfusion threshold and baseline iron studes wml Status at Discharge Overall status at discharge: patient is progressing back to baseline Time Attestation Discharge Coordination Time (in mins): 40 Specific discharge activities: 40 Quality: Safe Use of Opioids Does Pt have an Active Cancer Diagnosis on the Problem List?: No Quality: Stroke Does the patient have a stroke diagnosis?: No Physical Exam Vital Signs: Vital Signs: Last Vital Signs Temp 97 F 03/05/24 11:12 Pulse 69 03/05/24 11:12 Resp 16 03/05/24 11:12 BP 148/82 H 03/05/24 11:12 Pulse Ox 98 03/05/24 11:12 O2 Del Method Room Air 03/05/24 11:12 BMI result Body Mass Index 19.7 DS: Data Data Completed and Pending Labs on day of discharge: Laboratory Results - last 24 hr 03/03/24 03/04/24 03/05/24 15:55 19:37 07:05 POC Glucose 122 H 168 H 102 03/05/24 10:46 POC Glucose 135 H Discharge Plan Discharge Anticipated Discharge Date/Time: 03/05/24 15:47 Patient Disposition: Home Health Service Discharge Diagnosis: Syncope, encephalopathy Referrals: Po,Ludy Minaya MD [Primary Care Provider] - 1 Week Discharge Medications: Continued multivitamin Tablet 1 tab PO DAILY 90 Days Qty: 90 3RF (DME) lancets [FreeStyle Lancets] 28 gauge misc See Rx Instructions .ROUTE .MEDSUPPLY Qty: 100 3RF Rx Instructions: As directed check the blood sugar once a day (DME) adult diapers size small petite See Rx Instructions .Route .MEDSUPPLY Qty: 90 12RF Rx Instructions: As directed (DME) FreeStyle Lite Strips Strip See Rx Instructions .ROUTE .MEDSUPPLY Qty: 100 11RF Rx Instructions: As directed 3 x/day (DME) Adult pull ups medium package See Rx Instructions .Route .MEDSUPPLY Qty: 90 11RF Rx Instructions: 8 Per day (PRN), 11 refills for 12 months. (DME) stair lift See Rx Instructions .Route .MEDSUPPLY Qty: 1 0RF Rx Instructions: As directed (DME) disposable gloves [Disposable Latex-Free Gloves] Misc See Rx Instructions .Route Qty: 1000 3RF Rx Instructions: As directed loratadine 10 mg tablet 10 mg PO BEDTIME Qty: 90 1RF (DME) PRESSURE RELIEF PAD See Rx Instructions .Route .MEDSUPPLY Qty: 1 0RF Rx Instructions: pressure relief pad for chairs to sit on due to the patient developing sores on her buttocks by her tail Bone and a new shower chair that attached to tub and swings into the bathtub (DME) Pressure Sore Cushion Small See Rx Instructions .Route .MEDSUPPLY Qty: 1 0RF Rx Instructions: As directed (DME) Sliding Shower Chair w/swivel seat and pivoting arms small See Rx Instructions .Route .MEDSUPPLY Qty: 1 0RF Rx Instructions: As directed (DME) new shower chair that attached to tub and swings into the bathtub See Rx Instructions .Route .MEDSUPPLY Qty: 1 0RF Rx Instructions: As directed risperidone 1 mg tablet 1 mg PO BEDTIME Qty: 90 1RF (DME) Ablewear/ADL universal cuff See Rx Instructions .Route .MEDSUPPLY Qty: 1 0RF Rx Instructions: As directed (DME) Grab BAR See Rx Instructions .Route .MEDSUPPLY Qty: 1 0RF Rx Instructions: As directed losartan 25 mg tablet 12.5 mg PO DAILY Qty: 90 0RF Protocol: Hold for SBP< HOLD for SBP < : 90 (DME) Transport wheelchair See Rx Instructions .Route .MEDSUPPLY Qty: 1 0RF Rx Instructions: As directed (DME) blood pressure monitor [Blood Pressure Kit] Kit See Rx Instructions .ROUTE .MEDSUPPLY Qty: 1 0RF Rx Instructions: As directed (DME) Folding sliding transfer bench for the shower See Rx Instructions .Route .MEDSUPPLY Qty: 1 0RF Rx Instructions: Recliner Chair, Digital Blood Pressure Machine, Folding sliding transfer bench for the shower, Reusable bed pads, Flushable Wipes (DME) RECLINER CHAIR See Rx Instructions .Route .MEDSUPPLY Qty: 1 0RF Rx Instructions: Recliner Chair, Digital Blood Pressure Machine, Folding sliding transfer bench for the shower, Reusable bed pads, Flushable Wipes (DME) REUSABLE BED PADS See Rx Instructions .Route .MEDSUPPLY Qty: 10 12RF Rx Instructions: Recliner Chair, Digital Blood Pressure Machine, Folding sliding transfer bench for the shower, Reusable bed pads, Flushable Wipes acarbose 50 mg tablet 50 mg PO TID Qty: 270 1RF (DME) Aloe scented personal cleansing wipes 0 .ROUTE .MEDSUPPLY Eliquis 5 mg tablet 5 mg PO BID Qty: 180 1RF cholecalciferol (vitamin D3) 50 mcg (2,000 unit) capsule 50 mcg PO DAILY Qty: 90 0RF sertraline 100 mg tablet 200 mg PO DAILY 30 Days Qty: 180 1RF metformin 500 mg tablet 500 mg PO BID Qty: 90 0RF ursodiol 250 mg tablet 250 mg PO TID Qty: 270 0RF atorvastatin 40 mg tablet 80 mg PO BEDTIME Qty: 90 1RF Brilinta 90 mg tablet 90 mg PO Q12H polyethylene glycol 3350 [Purelax] 17 gram powder in packet 17 g PO DAILY PRN (Reason: constipation) Artificial Tears(ax-[id number]-[id number]) 1-0.2-0.2 % drops 2 drp ophthalmic-Right Q4H PRN (Reason: Dry Eyes) magnesium oxide 400 mg magnesium capsule 400 mg PO DAILY Qty: 3 0RF (DME) pen needle, diabetic [Comfort EZ Pen [place]] 31 gauge x 3/16 needle See Rx Instructions .Route Qty: 100 3RF Rx Instructions: As directed (DME) MOUTH GUARD See Rx Instructions .Route .MEDSUPPLY Qty: 1 0RF Rx Instructions: As directed (DME) Walker with seat and wheels See Rx Instructions .Route .MEDSUPPLY Qty: 1 0RF Rx Instructions: As directed (DME) WIPES See Rx Instructions .Route .MEDSUPPLY Qty: 1 12RF Rx Instructions: As directed (DME) Allevyn Gentle Border Sacrum 6 5/8 X 6 3/4 bandage See Rx Instructions .Route Qty: 60 1RF Rx Instructions: As directed (DME) Paolo Lift Small See Rx Instructions .Route .MEDSUPPLY Qty: 1 0RF Rx Instructions: As directed albuterol sulfate 90 mcg/actuation HFA aerosol inhaler 1 inh inhalation QID PRN (Reason: Shortness Of Breath Or Wheezing) Discharge Orders: Discharge Order (Routine); Ordered 03/05/24 Ordered By: Billie Donis Diet: Advance to usual diet Activity on Discharge: As tolerated Stand Alone Forms: Patient Portal Discharge page Print Language: Prydeinig Care Plan Goals: Prevent syncope Follow up with [facility] Continue medications as prescribed Health Concerns: Syncope/confusion Word finding difficulty Plan of Treatment: Continue eliquis and brillinta. MRI did not show acute stroke. You had an EEG performed but given you have returned to baseline, can discharge home and will contact you with results. Follow up [facility] Soon Continue home medications You were seen by PT recommending you be discharged home with VNA services which will be set up for you Assessment: See above, see discharge summary
[2024-03-05 15:02] VITALS: BP 142/69; PULSE 62; RESP 16; TEMP 36.1; O2SAT 98
[2024-03-05 15:36] VITALS: BMI 19.7
--- NOTE | 2024-03-05 15:46 | MHC.CLN ---
NUTRITION DIET=DIABETIC 2000 KCALS, CHOPPED WITH NECTAR THICK LIQUIDS. FAMILY PRESENT AT VISIT. ASKED IF ANY QUESTIONS/COCERNS WITH DM DIET. DECLINED ADDITIONAL NUTRITION EDUCATION. SKIN WITH STAGE II PRESSURE INJURY TO COCCYX. INTAKE APPEARS GOOD. FOLLOW FOR INTAKE AND SKIN INTEGRITY. SUPPLEMENT IF PO LESS THAN 50%. SEE CLINICAL NUTRITION ASSESSMENT 03/05/24.
[2024-03-05 15:56] LABS: Glucose, Whole Blood 207 mg/dL (60-115)
--- NOTE | 2024-03-05 16:28 | HO.WOUND ---
Wound Consult: Initial 63yr old? Female admitted to [facility] on 03/03/24 - See progress notes and H&P for detailed history.? Wound consult placed for Coccyx and Left Groin.? Patient agreeable to assessment and photo documentation.? Coccyx Etiology: Stage 2 Pressure Injury ??Present on Admission Measurements: 1.6cm x 2cm x 0.1cm Wound Bed: pirnk red tissue - partial thickness tissue loss Drainage / Odor: None noted Edges: ? irregular Radha wound: MASD - ? No Induration, Fluctuance or Warmth noted Pain: denies Goals of Treatment: ? Triad and off load pressure Bilateral groin and inner thighs noted for MASD - recommend treat with Triad to protect from friction and moisture. Recommendations: 1. Turn and Reposition every 2 hours and as needed for patient comfort.? Use pillows or wedges to support off loading positions. 2. Off Load all bony prominences with use of pillows and heel boots if needed.? Apply Preventative foams where needed. ? 3. Monitor for incontinence and moisture control, use barrier creams when needed for prevention and treatment. 4. Provide adequate and supplemental nutrition.? 5. Order low air loss mattress. 6. When applicable maintain blood glucose levels per Providers order. 7. Bilateral Inner Thigh / Groin and Coccyx - Off Load Pressure? - Cleanse with PH balance spray or wipes, pat dry. ?Apply thin layer of Triad to wound bed. Do not remove all of paste between applications as this may cause further skin damage.? Cover coccyx with foam dressing to aid in off loading and protection from friction. Change 3 day and PRN. Re-consult wound care Nurse for wound deterioration or wound changes.
[2024-03-05] MEDS: Insulin Lispro 100 UNIT/ML 3 ML VIAL SUBCUT (17:10)
--- NOTE | 2024-03-05 17:32 | W.MHC.F2F ---
Service Date Service Date: 03/05/24 Encounter Date of encounter: 03/05/24 Reasons for Services Signs and symptoms assessed: weakness, facial droop, dysphagia, encephalopathy/syncope Reason for custodial: neurological assessment and other (VS monitoring) Reason for physical therapy: home safety and mobility, therapeutic exercises, gait/transfer training and ADL training Reason for occupational therapy: home safety and mobility, therapeutic exercises, gait/transfer training, assess need for DME and ADL training Reason for speech therapy: swallowing impairment and speech impairment Homebound: Leaving the home is medically contraindicated at this time without the asist of a device and/or another person due th the listed conditions above and below. Reason homebound: unsteady gait / fall risk, leg weakness, poor balance / fall risk and weakness related to hospital stay Certification: Based on the above findings, I certify that this patient is confined to the home and needs intermittent custodial care, physical therapy and/or speech therapy, or continues to need occupational therapy. The patient is under my care, and I have initiated the establishment of the plan of care. The patient will be followed by a physician who will periodically review the plan of care. Time Spent With Patient Time: Total time managing care of this patient today ____ minutes.
--- NOTE | 2024-03-05 19:42 | PC.NURSE ---
Discharge note: Patient left the unit with EMS on stretcher. No complaints voiced at time of departure from the unit around 1934.
== END 2024-03-05 19:35 | disposition home health service (06) | DRG 312 ==
LOC: HO.ED 20:35 → HO.EDOVER 21:07 → HO.IMC 03-04 23:05
PROVIDERS: Admitting Provider Student in an Organized Health Care Education/Training Program; Emergency Provider Emergency Medicine Emergency Medical Services; PCP Internal Medicine; Visit Provider Physician Assistant
DX: R55 Syncope and collapse (principal); R47.01 Aphasia; I69.354 Hemiplegia and hemiparesis following cerebral infarction affecting left non-dominant side; I69.351 Hemiplegia and hemiparesis following cerebral infarction affecting right dominant side; G93.40 Encephalopathy, unspecified; I10 Essential (primary) hypertension; D50.9 Iron deficiency anemia, unspecified; E11.42 Type 2 diabetes mellitus with diabetic polyneuropathy; Z91.040 Latex allergy status; J45.20 Mild intermittent asthma, uncomplicated; Z79.01 Long term (current) use of anticoagulants; Z79.84 Long term (current) use of oral hypoglycemic drugs; Z79.899 Other long term (current) drug therapy
CPT/HCPCS: 36415; 70450; 70551; 80048; 80061; 80076; 82728; 82947; 83540; 83735; 84484; 85025; 85610; 85730; 92610; 93005; 95816; 97162; 97166; 97535; 99285; J0360; J7120

== ENCOUNTER → 2024-03-03 20:54 | Outpatient (BNV) | payer OTHER, SELFPAY | PROVIDERS: Admitting Provider Student in an Organized Health Care Education/Training Program; Emergency Provider Emergency Medicine Emergency Medical Services; PCP Internal Medicine; Visit Provider Psychiatry & Neurology Neurology | DX: G93.40 Encephalopathy, unspecified (principal); I69.354 Hemiplegia and hemiparesis following cerebral infarction affecting left non-dominant side; R41.82 Altered mental status, unspecified | CPT/HCPCS: 99222 ==

== ENCOUNTER → 2024-03-03 20:54 | Outpatient (BNV) | payer OTHER, SELFPAY | PROVIDERS: Admitting Provider Student in an Organized Health Care Education/Training Program; Emergency Provider Emergency Medicine Emergency Medical Services; PCP Internal Medicine; Visit Provider Student in an Organized Health Care Education/Training Program | DX: R47.01 Aphasia (principal); R53.1 Weakness; R55 Syncope and collapse | CPT/HCPCS: 99223; 99232; 99239; G0180 ==